=== PATIENT | female | born 1990 | race Caucasian/White ===

== ENCOUNTER 2017-11-02 18:50 | Outpatient (CLI) | payer OTHER, MEDICAID, SELFPAY ==
[2017-11-02 19:49] VITALS: BMI 40.1
[2017-11-02 20:07] LABS: Mucous, Urine 0 SEEN /hpf (<or=2+); Red Blood Cells-Urine 0 SEEN /hpf (0-5); Squamous Epithelial Cells - UA 0 SEEN /hpf (5-10)
[2017-11-02 20:09] LABS: Color, Urine Yellow (Yellow); Glucose, Dipstick Normal (Normal); Ketone-Dipstick 15 mg/dl (Negative); Leukocyte Esterase-Dipstick 100 /ul (Negative); Nitrite-Dipstick Negative (Negative); Occult Blood-Urine Negative /ul (Negative); Protein-Dipstick 15 mg/dl (Negative); Urine Bilirubin Dipstick Negative (Negative); Urine Clarity Clear (Clear); Urine Urobilinogen Normal (Normal)
[2017-11-02 20:17] LABS: Bacteria RARE /hpf (None Seen); White Blood Cells 0-5 SEEN /hpf (0-5)
[2017-11-02 20:24] VITALS: BP 130/69; PULSE 90; RESP 16; TEMP 36.8; O2SAT 97
--- NOTE | 2017-11-03 08:28 | OB.TRI.NOTE ---
History of Present Illness Date of Service: 11/02/17 Was patient seen by the physician?: Yes Reason For Visit: REPEAT C SECTION BTO Date of Service: 11/02/17 Final SANDIE: 12/05/17 Final SANDIE Source: US <20 weeks Gestational age: 36 Weeks and 0 Days History of Present Illness: Presents at 35 2/7 wk EGA just not feeling good. Achy, crampy. Planned repeat C/S at 39 wk and BTO Home Medications Medication Instructions Recorded Albuterol Inhaler [Ventolin Hfa 2 puff INHALATION Q6H PRN PRN 07/31/17 (SP)] Vit #116/Iron/FA/Dha 1 each PO DAILY 07/31/17 [ Formula-Dha Softgel] Allergies Sulfa (Sulfonamide Antibiotics) Allergy (Severe, Verified 11/06/17 16:36) Anaphylaxis Pt. states she has been told of allergy as a child but does not remember Physical Exam General: Oriented x3, Cooperative, No apparent distress Abdomen: Gravid Cervix Dilation (cm): 2 - (no change on recheck) NST - FHR Rate Baby A Baseline: 120-130 with accels to 160s Variability:: Moderate Accelerations:: 15 x 15 Decelerations:: None NST Reactive:: Yes, Appropriate for gestational age FHR Category:: Category I Uterine Activity:: UC q 2-5 min. not felt by patient Impression/Plan 35 2/7 wk Malaise False labor Home to rest, tylenol PM . warm bath or shower prior to rest Inc po fluids Keep next ofc appt as scheduled
== END 2017-11-02 20:35 | disposition home or self-care (01) ==
LOC: WPOUT 19:17 → WP 19:18
PROVIDERS: Visit Provider Obstetrics & Gynecology
DX: O26.813 Pregnancy related exhaustion and fatigue, third trimester (principal); O47.03 False labor before 37 completed weeks of gestation, third trimester; Z3A.35 35 weeks gestation of pregnancy; O34.219 Maternal care for unspecified type scar from previous cesarean delivery
CPT/HCPCS: 59025; 59050; 81001; 99218; G0378

== ENCOUNTER 2017-11-06 16:15 | Outpatient (CLI) | payer OTHER, MEDICAID, SELFPAY ==
[2017-11-06 16:37] VITALS: BMI 41.2
--- NOTE | 2017-11-08 08:23 | OB.TRI.HP_ITS ---
History of Present Illness Reason For Visit: FALL Date of Service: 11/06/17 Final SANDIE: 12/05/17 Gestational age: 35 wk 6 Days History of Present Illness: 27 yo AB 1 female presents for monitoring approx 6 hr after falling on hands and knees at work. H/O prior C/S x two, both at term. Denies any VB , ROM, UCs but is sore. Scraped on knees and some bruising. Also L foot sore. No bruising there. Home Medications Medication Instructions Recorded Albuterol Inhaler [Ventolin Hfa 2 puff INHALATION Q6H PRN PRN 07/31/17 (SP)] Vit #116/Iron/FA/Dha 1 each PO DAILY 07/31/17 [ Formula-Dha Softgel] Allergies Sulfa (Sulfonamide Antibiotics) Allergy (Severe, Verified 11/06/17 16:36) Anaphylaxis Pt. states she has been told of allergy as a child but does not remember NST - FHR Rate Baby A Baseline: 130-140 with avg variability. Accels to 160-170 Variability:: Moderate Accelerations:: 15 x 15 Decelerations:: None NST Reactive:: Yes, Appropriate for gestational age FHR Category:: Category I Uterine Activity:: NO UCs noted. Impression/Plan 35 6/7 wk EGA prior C/S times two. S/P fall onto hands and knees at work. no abdominal trauma NST reactive No labor Knee abrasions, foot pain after fall. Comfort measures for knees and foot. Keep next appt in ofc as scheduled. Return to hospital if inc s/sx of labor.
== END 2017-11-06 17:55 | disposition home or self-care (01) ==
LOC: WPOUT 16:25 → WP 16:26
PROVIDERS: Visit Provider Obstetrics & Gynecology
DX: O34.219 Maternal care for unspecified type scar from previous cesarean delivery (principal); Z3A.35 35 weeks gestation of pregnancy; S80.212A Abrasion, left knee, initial encounter; S80.211A Abrasion, right knee, initial encounter; W18.30XA Fall on same level, unspecified, initial encounter; Y93.9 Activity, unspecified; Y92.89 Other specified places as the place of occurrence of the external cause; Y99.0 Civilian activity done for income or pay; M79.673 Pain in unspecified foot
CPT/HCPCS: 59025; 59050; 99218; G0378

== ENCOUNTER 2017-11-29 05:35 | Inpatient (IN) | payer OTHER, MEDICAID, SELFPAY ==
--- NOTE | 2017-11-03 08:28 | OB.TRI.NOTE ---
History of Present Illness Date of Service: 11/02/17 Was patient seen by the physician?: Yes Reason For Visit: REPEAT C SECTION BTO Date of Service: 11/02/17 Final SANDIE: 12/05/17 Final SANDIE Source: US <20 weeks Gestational age: 35 Weeks and 2 Days History of Present Illness: Presents at 35 2/7 wk EGA just not feeling good. Achy, crampy. Planned repeat C/S at 39 wk and BTO Home Medications Medication Instructions Recorded Albuterol Inhaler [Ventolin Hfa 2 puff INHALATION Q6H PRN PRN 07/31/17 (SP)] Vit #116/Iron/FA/Dha 1 each PO DAILY 07/31/17 [ Formula-Dha Softgel] Allergies Sulfa (Sulfonamide Antibiotics) Allergy (Severe, Verified 11/02/17 19:54) Anaphylaxis Pt. states she has been told of allergy as a child but does not remember Physical Exam General: Oriented x3, Cooperative, No apparent distress Abdomen: Gravid Cervix Dilation (cm): 2 - (no change on recheck) NST - FHR Rate Baby A Baseline: 120-130 with accels to 160s Variability:: Moderate Accelerations:: 15 x 15 Decelerations:: None NST Reactive:: Yes, Appropriate for gestational age FHR Category:: Category I Uterine Activity:: UC q 2-5 min. not felt by patient Impression/Plan 35 2/7 wk Malaise False labor Home to rest, tylenol PM . warm bath or shower prior to rest Inc po fluids Keep next ofc appt as scheduled
[2017-11-27 13:06] VITALS: BMI 41.7
[2017-11-27 13:55] LABS: Hematocrit 32.9 % (37-47); Hemoglobin 10.6 g/dl (12.0-15.0); Mean Corp Hgb Conc 32.2 g/gl (32-36); Mean Corpuscular Volume 83.9 fL (81-99); Mean Platelet Vol. 9.2 fl (6.2-12.0); Platelet Count 225 K/mm3 (150-450); RBC Distribution Width CV 13.7 % (11.6-14.6); Red Blood Count 3.92 M/mm3 (4.2-5.4); White Blood Count 9.7 K/mm3 (4.4-11.0)
[2017-11-27 13:56] LABS: Scan Indicated on CBC? Y/N NO
[2017-11-27 14:10] LABS: Prothrombin Time (Protime)PT. 12.9 SECONDS (11.7-14.9)
[2017-11-27 14:11] LABS: Partial Thromboplast Time 29.2 Seconds (24.1-36.2)
[2017-11-29] VITALS (15 sets, daily range): BP systolic 103–142; BP diastolic 55–79; PULSE 75–85; RESP 16–18; TEMP 36.3–37.6; O2SAT 97–100
--- NOTE | 2017-11-29 | FALS_PTH ---
PATIENT: TANYA FREDERICK LOC: [facility] U#:[id number] AGE/SX: 27/F ROOM: [id number] RE11/29/[address]: Dr. Morena Torres MD : 1990 BED: 2 DIS: 12/01/2017 SPEC #: [id number] RECD: 11/29/17 10:40 STATUS: FEI ALESSIO #: [id number] KEIRY: 11/29/17 00:[address]: Morena Torres DEPT: SURGICAL PATHOLOGY RECD BY: Rafita Gonzales ENTERED: 11/29/17 10:40 SP TYPE: FALL TUBES OTHR DR: No Primary Care Phys Tissues: Fallopian tube Procedures: Surgery Specimen Level II HEADER OPERATION: Tubal ligation PRE-OP DIAGNOSIS: Sterilization request TISSUE SUBMITTED: Fallopian tubes, suture in right tube MICROSCOPIC DIAGNOSIS Right and left fallopian tubes, bilateral partial salpingectomies: Two complete cross-sections of fallopian tubes with no pathologic change. AM:mell 11/30/17 MICROSCOPIC DESCRIPTION Slides are reviewed. GROSS DESCRIPTION Received in fixative is one container labeled with the patient's name and designated suture in right tube. The specimen consists of two tubular pieces of [place] soft tissue with the right tube identified with a suture. The right fallopian tube measures 1 cm in length and 0.5 cm in diameter. The left fallopian tube measures 1.5 cm in length and 0.7 cm in diameter. The right tube with suture is inked black. The entire specimen is submitted in one cassette. Both pieces will be serially sectioned at the time of embedding. / EDSON:mell 11/29/17 TC:4 CPT: 54153 x2
[2017-11-29] MEDS: Lactated Ringers 1,000 ML 999 ML IV (06:05)
[2017-11-29] MEDS: Lactated Ringers 1,000 ML 150 ML IV (07:00)
[2017-11-29] MEDS: Sodium Citrate/Citric Acid 30 ML UDC PO (07:00)
--- NOTE | 2017-11-29 07:08 | PCM.DCCSEC ---
Discharge Diet: No Restrictions Discharge Activity: May not drive while taking narcotic pain medications., May Shower, May Take a Tub Bath Return to work on:: 01/28/18 May resume sexual activity in: 4-6 weeks Lifting Restrictions: 20 pounds Additional Activity Instructions:: Nothing in the vagina for 4-6 weeks. You may return to work/school in 6 weeks. Change Dressing in (Days):: 14 Remove Dressing in (days):: 14 Cleanse incision/area with: Soap & Water, Keep Dressing Clean & Dry Additional Instructions: If you experience any of the following, contact your healthcare provider. Bleeding that soaks a pad every hour for 2 hours Fever 100.4 or higher Unrelieved incision or abdominal pain Swelling, redness, discharge or bleeding from your incision Problems urinating (including inability to urinate or burning while urinating). Visual changes Severe headache Flu-like symptoms Pain or redness in one of both of your breasts Pain, warmth, tenderness or swelling in your legs, especially the calf area Frequent nausea and vomiting Symptoms of depression or anxiety If you experience any of the following, call 911 or go to the nearest Emergency Room. Chest pain Problems breathing Seizure activity Partial or complete paralysis of a body part, slurred speech, weakness or drooping of the face, or a sudden inability to walk or hold your balance Allergies/Adverse Reactions: Allergies Sulfa (Sulfonamide Antibiotics) Allergy (Severe, Verified 11/29/17 06:36) Anaphylaxis Pt. states she has been told of allergy as a child but does not remember Medications to take at Discharge Vit #116/Iron/FA/Dha [ Formula-Dha Softgel] 1 each PO DAILY 07/31/17 Docusate Sodium [Colace] 200 mg PO BID PRN #30 cap 11/29/17 Naproxen [Naprosyn] 250 - 500 mg PO TID PRN #30 tab 11/29/17 Oxycodone [Oxyir] 5 - 10 mg PO Q6H PRN PRN 7 Days #28 tablet 11/29/17 The following prescriptions were given: Oxycodone [Oxyir] 5 - 10 mg PO Q6H PRN PRN 7 Days #28 tablet PRN Reason: Mod-Severe Pain (-06/19) Docusate Sodium [Colace] 200 mg PO BID PRN #30 cap PRN Reason: Constipation Naproxen [Naprosyn] 250 - 500 mg PO TID PRN #30 tab PRN Reason: Mild-Mod Pain (1-5/10) Orders to be completed after discharge: Electric breast pump Location: None Selected Follow-Up: Call to make an appointment with your doctor for an incision check in 1-2 weeks. You will also need a 6 week post- follow up appointment. Please Follow Up With: Morena Torres MD - [phone] When: Call to make an appointment for an incision check in 2 weeks. Primary Care Physician: Care Physician,No Primary [Primary Care Provider] - Proposed Discharge Date: 12/01/17
--- NOTE | 2017-11-29 07:13 | DCINST_ITS ---
Discharge Diet: No Restrictions Discharge Activity: May not drive while taking narcotic pain medications., May Shower, May Take a Tub Bath Return to work on:: 01/28/18 May resume sexual activity in: 4-6 weeks Lifting Restrictions: 20 pounds Additional Activity Instructions:: Nothing in the vagina for 4-6 weeks. You may return to work/school in 6 weeks. Change Dressing in (Days):: 14 Remove Dressing in (days):: 14 Cleanse incision/area with: Soap & Water, Keep Dressing Clean & Dry Additional Instructions: If you experience any of the following, contact your healthcare provider. * Bleeding that soaks a pad every hour for 2 hours * Fever 100.4 or higher * Unrelieved incision or abdominal pain * Swelling, redness, discharge or bleeding from your incision * Problems urinating (including inability to urinate or burning while urinating) . * Visual changes * Severe headache * Flu-like symptoms * Pain or redness in one of both of your breasts * Pain, warmth, tenderness or swelling in your legs, especially the calf area * Frequent nausea and vomiting * Symptoms of depression or anxiety If you experience any of the following, call 911 or go to the nearest Emergency Room. * Chest pain * Problems breathing * Seizure activity * Partial or complete paralysis of a body part, slurred speech, weakness or drooping of the face, or a sudden inability to walk or hold your balance Allergies/Adverse Reactions: Allergies Sulfa (Sulfonamide Antibiotics) Allergy (Severe, Verified 11/29/17 06:36) Anaphylaxis Pt. states she has been told of allergy as a child but does not remember Medications to take at Discharge Vit #116/Iron/FA/Dha [ Formula-Dha Softgel] 1 each PO DAILY Docusate Sodium [Colace] 200 mg PO BID PRN #30 cap 11/29/17 Naproxen [Naprosyn] 250 - 500 mg PO TID PRN #30 tab 11/29/17 Oxycodone [Oxyir] 5 - 10 mg PO Q6H PRN PRN 7 Days #28 tablet 11/29/17 The following prescriptions were given: Oxycodone [Oxyir] 5 - 10 mg PO Q6H PRN PRN 7 Days #28 tablet PRN Reason: Mod-Severe Pain () Docusate Sodium [Colace] 200 mg PO BID PRN #30 cap PRN Reason: Constipation Naproxen [Naprosyn] 250 - 500 mg PO TID PRN #30 tab PRN Reason: Mild-Mod Pain (-01/17) Orders to be completed after discharge: Electric breast pump Location: None Selected Follow-Up: Call to make an appointment with your doctor for an incision check in 1-2 weeks. You will also need a 6 week post- follow up appointment. Please Follow Up With: Morena Torres MD - [phone] When: Call to make an appointment for an incision check in 2 weeks. Primary Care Physician: Care Physician,No Primary [Primary Care Provider] - Proposed Discharge Date: 12/01/17
[2017-11-29] MEDS: Oxytocin 30 units/NS 500 ml 30 UNITS/500 ML IV.SOLN 167 UNITS IV (07:40)
[2017-11-29] MEDS: Lactated Ringers 1,000 ML 100 ML IV ×3 (08:35→23:47)
[2017-11-29] MEDS: HYDROmorphone 1 MG/ML Syringe IV ×3 (09:32→19:45)
[2017-11-29] MEDS: Ketorolac 30 MG/ML Syringe IV ×3 (12:12→22:56)
[2017-11-29] MEDS: Prenatal Vits Tablet 1 TABLET PO (17:37)
[2017-11-29] MEDS: Senna/Docusate Sodium 1 Tablet PO (21:48)
[2017-11-29] MEDS: oxyCODONE 5 MG Tablet PO (22:55)
[2017-11-30] VITALS: BP 118/67; PULSE 81; RESP 15; TEMP 37.2; O2SAT 96
[2017-11-30] MEDS: oxyCODONE 5 MG Tablet PO ×3 (03:50→15:13)
[2017-11-30 03:53] VITALS: BP 109/72; PULSE 75; RESP 15; TEMP 36.8; O2SAT 97
[2017-11-30 04:09] LABS: Hematocrit 29.3 % (37-47); Hemoglobin 9.4 g/dl (12.0-15.0); Mean Corp Hgb Conc 32.1 g/gl (32-36); Mean Corpuscular Hgb 27.5 pg (27.0-32.0); Mean Corpuscular Volume 85.7 fL (81-99); Mean Platelet Vol. 9.1 fl (6.2-12.0); Platelet Count 188 K/mm3 (150-450); RBC Distribution Width CV 13.5 % (11.6-14.6); RBC Distribution Width SD 41.4 fl (35.1-43.9); Red Blood Count 3.42 M/mm3 (4.2-5.4); Scan Indicated on CBC? Y/N NO; White Blood Count 12.6 K/mm3 (4.4-11.0)
[2017-11-30] MEDS: Ketorolac 30 MG/ML Syringe IV ×3 (06:25→18:08)
[2017-11-30 08:00] VITALS: BP 115/57; PULSE 74; RESP 16; TEMP 36.5
--- NOTE | 2017-11-30 08:04 | OP.PCM_ITS ---
Operative Report Date of Procedure: 11/29/17 - 39+ wk repeat C/S and BPS Date of Procedure: 11/29/17 PROCEDURE: Repeat C section Bilateral Partial Salpingectomy Preoperative diagnosis: 39+ wk EGA Prior C/S deliveries, Planned repeat C/S Sterilization request Postop diagnosis: 39+ wk EGA Prior C/S deliveries, Planned repeat C/S Sterilization request Anesthesia: Spinal, Dr. Beckford Surgeon: Morena Torres MD Consulting Services Associate: JAZMYN Ng EBL 800 cc Complications: none Drains: Stewart draining clear yellow appearing urine Fluids: replacement LR Findings: At amniotomy, clear fluid was noted. Ward viable female in vertex presentation . Apgars 9/9, Baby weight: 8 # 14 oz. There was a normal appearing uterus, fallopian tubes and ovaries bilaterally. Filmy adhesions at lower uterine segment between bladder and uterus. small hematoma inferior to incision, oversewn and stable. PATH: Routine cord gases were sent. Narrative account: After the risks, benefits and alternatives of the procedure were reviewed with the patient, informed consent was obtained. The patient was taken to the Operative room with an IV running, and positioned in a seated position on the operating table for placement of the spinal. After the spinal was administered , she was repositioned to the dorsal supine position then prepped and draped in the usual sterile fashion. Once the spinal was deemed adequate, a Pfannenstiel skin incision was created using the knife through the prior scar present . The incision was carried down to the rectus fascia using the knife and Bovie cautery. The fascia was nicked in the midline. The fascial incision was extended bilaterally using curved Collazo scissors. The superior aspect of the fascial incision was grasped with Juan clamps and tented up and the underlying rectus abdominal muscles were dissected free. In a similar manner, the inferior aspect of the facial incision was grasped with Juan clamps tented up and the underlying rectus abdominal muscles were dissected free. The rectus abdominis muscles were tented up in the midline with Michelle clamps and the peritoneum was identified and entered high in the incision by sharp dissection. The rectus abdominis muscles were divided along the midline as the peritoneal incision was extended superiorly and then inferiorly, using Metzenbaum scissors. The peritoneum was stretched laterally and a bladder blade was inserted. A bladder flap was created along the lower uterine segment with Metzenbaum scissors . The uterine incision was then created using Metzenbaum scissors. The operators fingertips were used to extend the uterine incision by blunt dissection in a caudad- cephalad orientation . Clear fluid was noted at amniotomy. The vertex was then delivered atraumatically through the incision. The OP and nares were bulb suctioned on the abdomen. Nuchal cord x one reduced at delivery . The shoulders delivered easily . The cord was clamped x two and cut. And the was handed off to the nurse awaiting delivery after briefly showing her to her parents. The baby had a spontaneous, vigorous cry. The placenta was then delivered by manual extraction. The uterus was exteriorized and cleared of clots and debris . The uterine incision was repaired with 1 Vicryl in a running locked fashion. A second imbricating layer was then placed, using 1 Monocryl in running nonlocked fashion. There was a small hematoma inferior to the incision: this was oversewn with interrupted horizontal mattress stitches and figure of eight stitches of 1 Vicryl. Excellent hemostasis was noted and no further extension of the hematoma was noted. At this point the uterus was returned to the abdominal cavity. The gutters were cleared of clots and debris and the incision at the uterus was inspected. Excellent hemostasis was noted. The peritoneal edges and rectus abdominis muscles were reapproximated in the midline with vertical mattress stitches and figure of eight stitches of 1 Vicryl . Excellent hemostasis was noted at the subfascial space. The fascia was closed in a running nonlocked fashion with a Strattofix. The Subcutaneous fatty tissue was Bovie cauterized as needed for hemostasis. This layer was then reapproximated with a single layer of running 3-0 Vicryl to eliminate space. The skin edges were closed in a Subcuticular stitch of 3-4 strattofix suture. The incision was cleansed. The incision was dressed with : Cavilon, Steristrips, and a Mepilex dressing . The patient was then transferred to the recovery room bed in stable condition after tolerating the procedure well. Sponge, lap, needle and instrument counts correct times two. Medications given preop and intraoperatively included: Ancef 2 gm given vegetable scullion to the operating room. The patient also received Pitocin given IV after cord clamp, and Toradol 30 mg IV times one. For a complete listing of medications given preop and intraoperatively, please see the anesthesia record. THIS PATIENT DID NOT RECEIVE DURAMORPH.
--- NOTE | 2017-11-30 08:04 | PCM.PN.OB ---
Subjective: POD#1 repeat C/S and bilateral partial salpingectomy Doing well. Some soreness (no duramorph given) and has been taking OxyIR for this , in addition to IV toradol given. Nursing. Doing well overall with this. Planning to go home tomorrow if possible. States was up to chair. Stewart out but no void yet. - Physical Exam General: Alert, Oriented x3, Cooperative, No apparent distress HEENT: Atraumatic Neck: Supple Abdomen: Soft - Uterus firm inferior to umbilicus x 2-3 cm, and tender consistent with postop status. Wearing abdominal binder. Skin: Incision - Mepilex dressing CDI. Neurological: Cranial nerves II-XII grossly intact Psych/Mental Status: Normal Affect Vital Signs Temp Pulse Resp BP Pulse Ox 98.3 F 75 15 109/72 97 11/30/17 03:53 11/30/17 03:53 11/30/17 03:53 11/30/17 03:53 11/30/17 03:53 Oxygen Delivery Method Room Air Weight: 117.2 kg Body Mass Index (BMI) 41.7 Intake and Output for Last 24 Hours 03//18 03//18 /18 23:59 23:59 23:59 Intake Total 3536 / 3536 800 / 800 Output Total 2350 / 2350 2200 / 2200 Balance 1186 / 1186 -1400 / -1400 Laboratory Tests Past 24 Hrs 11/30/17 04:00 WBC 12.6 H RBC 3.42 L Hgb 9.4 L Hct 29.3 L MCV 85.7 MCH 27.5 MCHC 32.1 RDW 13.5 RDW Differential 41.4 Plt Count 188 MPV 9.1 Medical Necessity - Tobacco Use Smoking Status: Former smoker Assessment/Plan POD#1 repeat C/S and bilateral partial salpingectomy Stable postop . Voiding trial in progress. Inc diet and activity as tolerated. Continue IV toradol today for up to 48 hr postop. Iron deficiency anemia and now with superimposed acute blood loss anemia. -- Ferrous sulfate 325 mg po bid for 1 mo postop.
[2017-11-30] MEDS: Acetaminophen 500 MG Tablet 1000 MG PO ×2 (08:45→21:47)
[2017-11-30] MEDS: Ferrous Sulfate 325 MG Tablet PO ×2 (08:46→18:07)
[2017-11-30] MEDS: Prenatal Vits Tablet 1 TABLET PO (08:46)
[2017-11-30] MEDS: Senna/Docusate Sodium 1 Tablet PO (08:46)
[2017-11-30 12:27] LABS: Pathology Specimen OB SEE PATHOLOGY REPORT
[2017-11-30] MEDS: 0.9% Saline Lock 10 ML Syringe IV ×2 (12:33→18:08)
[2017-11-30 14:00] VITALS: BP 114/64; PULSE 68; RESP 20; TEMP 36.3
[2017-11-30 19:50] VITALS: BP 116/65; PULSE 86; RESP 18; TEMP 37.6
[2017-12-01] MEDS: Ketorolac 30 MG/ML Syringe IV ×2 (00:23→06:25)
[2017-12-01] MEDS: 0.9% Saline Lock 10 ML Syringe IV ×2 (00:23→06:25)
[2017-12-01 03:00] VITALS: BP 106/64; PULSE 67; RESP 16; TEMP 35.7
[2017-12-01 09:20] VITALS: BP 116/65; PULSE 83; RESP 18; TEMP 36.6; O2SAT 99
[2017-12-01] MEDS: Senna/Docusate Sodium 1 Tablet PO (09:23)
[2017-12-01] MEDS: Prenatal Vits Tablet 1 TABLET PO (09:23)
[2017-12-01] MEDS: Ferrous Sulfate 325 MG Tablet PO (09:24)
[2017-12-01] MEDS: Acetaminophen 500 MG Tablet 1000 MG PO (09:42)
--- NOTE | 2017-12-01 09:47 | PCM.PN.OB ---
Subjective: POD#2 Repeat C/S and BPS Doing well. Bottle feeding. Pain control adequate. Would like to go home today as boys unable to visit (flu precautions in place at hospital). Prefers to leave Mepilex on today. Will remove at home in 1-2 more days. No concerns voiced - Physical Exam General: Alert, Oriented x3, Cooperative, No apparent distress HEENT: Atraumatic Neck: Supple Abdomen: Soft - Fundus firm minimally tender c/w postop status, at 2 cm inferior to umbilicus Skin: Incision - Mepilex drsg dry and intact. Neurological: Cranial nerves II-XII grossly intact Psych/Mental Status: Normal Affect Vital Signs Temp Pulse Resp BP Pulse Ox 97.8 F 83 18 116/65 99 12/01/17 09:20 12/01/17 09:20 12/01/17 09:20 12/01/17 09:20 12/01/17 09:20 Oxygen Delivery Method Room Air Weight: 117.2 kg Body Mass Index (BMI) 41.7 Intake and Output for Last 24 Hours 03/ 03//18 18 23:59 23:59 23:59 Intake Total 3536 / 3536 800 / 800 Output Total 2350 / 2350 2200 / 2200 Balance 1186 / 1186 -1400 / -1400 Medical Necessity - Tobacco Use Smoking Status: Former smoker Assessment/Plan POD#2 repeat C/S and bilateral partial salpingectomy Stable postop . Would like to go home today. states missed her boys D/C home. RTO in 2 wk for postop check as scheduled, prn sooner. Iron deficiency anemia and now with superimposed acute blood loss anemia. -- Ferrous sulfate 325 mg po bid for 1 mo postop.
--- NOTE | 2017-12-01 09:51 | PCM.DC.SUM ---
Discharge Date and Diagnosis Date of Admission: 11/29/17 - 39 + wk repeat C/S and BPS Date of Discharge: 12/01/17 - same Hospital Course and Treatment Operations: - - Repeat C/S and bilateral partial salpingectomy Summary of Care Provided: The patient is a 27 year old female at 39+ wk EGA with h/o prior C/S deliveries, presents for repeat C/S and bilateral partial salpingectomy. Admitted on 11/29/17 for procedure. Procedure completed without complications. Ward viable 8# 14 oz female. Normal pelvic anatomy. Postoperative course uneventful. requests dischg to home on POD#2 RTO in 2 wk for postop check as planned. Discharge Diet: No Restrictions Discharge Activity: May not drive while taking narcotic pain medications., May Shower, May Take a Tub Bath Return to work on:: 01/28/18 May resume sexual activity in: 4-6 weeks Additional Activity Instructions:: Nothing in the vagina for 4-6 weeks. You may return to work/school in 6 weeks. Change Dressing in (Days):: 14 Remove Dressing in (days):: 14 Cleanse incision/area with: Soap & Water, Keep Dressing Clean & Dry Home Medications: Medications to take at Discharge Vit #116/Iron/FA/Dha [ Formula-Dha Softgel] 1 each PO DAILY 07/31/17 Docusate Sodium [Colace] 200 mg PO BID PRN #30 cap 11/29/17 Naproxen [Naprosyn] 250 - 500 mg PO TID PRN #30 tab 11/29/17 Oxycodone [Oxyir] 5 - 10 mg PO Q6H PRN PRN 7 Days #28 tablet 11/29/17 Ferrous Sulfate 325 mg PO BIDCM #60 tablet 11/30/17 Following Prescrptions Were Given to Patient: Oxycodone [Oxyir] 5 - 10 mg PO Q6H PRN PRN 7 Days #28 tablet PRN Reason: Mod-Severe Pain (4-10/10) Docusate Sodium [Colace] 200 mg PO BID PRN #30 cap PRN Reason: Constipation Ferrous Sulfate 325 mg PO BIDCM #60 tablet Naproxen [Naprosyn] 250 - 500 mg PO TID PRN #30 tab PRN Reason: Mild-Mod Pain (1-5/10) Other Amb Orders: Electric breast pump Location: None Selected Primary Care Physician: Care Physician,No Primary [Primary Care Provider] - Please Follow Up With: Morena Torres MD - [phone] When: Call to make an appointment for an incision check in 2 weeks. Medical Necessity - Tobacco Use Smoking Status: Former smoker Meaningful Use Info Meaningful Use Diagnoses (Choose all that apply): None applicable
--- NOTE | 2017-12-01 09:54 | DS.PCM_ITS ---
Discharge Date and Diagnosis Date of Admission: 11/29/17 - 39 + wk repeat C/S and BPS Date of Discharge: 12/01/17 - same Hospital Course and Treatment Operations: - - Repeat C/S and bilateral partial salpingectomy Summary of Care Provided: The patient is a 27 year old female at 39+ wk EGA with h/o prior C/S deliveries , presents for repeat C/S and bilateral partial salpingectomy. Admitted on for procedure. Procedure completed without complications. Ward viable 8# 14 oz female. Normal pelvic anatomy. Postoperative course uneventful. requests dischg to home on POD#2 RTO in 2 wk for postop check as planned. Discharge Diet: No Restrictions Discharge Activity: May not drive while taking narcotic pain medications., May Shower, May Take a Tub Bath Return to work on:: 01/28/18 May resume sexual activity in: 4-6 weeks Additional Activity Instructions:: Nothing in the vagina for 4-6 weeks. You may return to work/school in 6 weeks. Change Dressing in (Days):: 14 Remove Dressing in (days):: 14 Cleanse incision/area with: Soap & Water, Keep Dressing Clean & Dry Home Medications: Medications to take at Discharge Vit #116/Iron/FA/Dha [ Formula-Dha Softgel] 1 each PO DAILY Docusate Sodium [Colace] 200 mg PO BID PRN #30 cap 11/29/17 Naproxen [Naprosyn] 250 - 500 mg PO TID PRN #30 tab 11/29/17 Oxycodone [Oxyir] 5 - 10 mg PO Q6H PRN PRN 7 Days #28 tablet 11/29/17 Ferrous Sulfate 325 mg PO BIDCM #60 tablet 11/30/17 Following Prescrptions Were Given to Patient: Oxycodone [Oxyir] 5 - 10 mg PO Q6H PRN PRN 7 Days #28 tablet PRN Reason: Mod-Severe Pain (4-10/10) Docusate Sodium [Colace] 200 mg PO BID PRN #30 cap PRN Reason: Constipation Ferrous Sulfate 325 mg PO BIDCM #60 tablet Naproxen [Naprosyn] 250 - 500 mg PO TID PRN #30 tab PRN Reason: Mild-Mod Pain (1-5/10) Other Amb Orders: Electric breast pump Location: None Selected Primary Care Physician: Care Physician,No Primary [Primary Care Provider] - Please Follow Up With: Morena Torres MD - [phone] When: Call to make an appointment for an incision check in 2 weeks. Medical Necessity - Tobacco Use Smoking Status: Former smoker Meaningful Use Info Meaningful Use Diagnoses (Choose all that apply): None applicable
[2017-12-01 13:55] VITALS: BP 134/83; PULSE 77; RESP 16; TEMP 37.1; O2SAT 99
== END 2017-12-01 14:15 | disposition home or self-care (01) | DRG 765 ==
PROVIDERS: Admitting Provider Obstetrics & Gynecology; Visit Provider Obstetrics & Gynecology
DX: O34.211 Maternal care for low transverse scar from previous cesarean delivery (principal); D62 Acute posthemorrhagic anemia; Z37.0 Single live birth; D50.9 Iron deficiency anemia, unspecified; O99.02 Anemia complicating childbirth; Z30.2 Encounter for sterilization; Z3A.39 39 weeks gestation of pregnancy; Z87.891 Personal history of nicotine dependence
CPT/HCPCS: 85027; 85610; 85730; 86850; 86900; 88302; 99218; J7120; A4216; G0378

== ENCOUNTER → 2020-05-11 17:03 | Outpatient (CLI) | payer MEDICAID, SELFPAY ==
[2020-05-11 14:24] VITALS: BMI 37.8
[2020-05-13 20:07] LABS: Chlamydia By Nucleic Acid AMP Negative (Negative)
[2020-05-13 20:47] LABS: Gonococcus By Nucleic Acid AMP Negative (Negative)
== END ==
PROVIDERS: PCP Nurse Practitioner Family; Referring Provider Nurse Practitioner Women's Health; Visit Provider Nurse Practitioner Women's Health
DX: Z11.3 Encounter for screening for infections with a predominantly sexual mode of transmission (principal)
CPT/HCPCS: 87491; 87591

== ENCOUNTER → 2020-05-12 13:51 | Outpatient (CLI) | payer MEDICAID, SELFPAY ==
[2020-05-11 14:24] VITALS: BMI 37.8
--- NOTE | 2020-05-12 13:54 | US_ITS ---
STUDY: ULTRASOUND OF THE FEMALE PELVIS - COMPLETE REASON FOR EXAM: Female, 30 years old. Heavy and painful menses. LMP: 04/26/2020. TECHNIQUE: Transabdominal and Transvaginal TECHNICAL QUALITY: Adequate. COMPARISON: CT of the abdomen and pelvis, 08/04/2011. FINDINGS: The uterus is anteverted and is in a midline position. The uterus measures 7.7 x 5.8 x 4.1 cm. Normal uterine cervix. The endometrium measures 8 mm in thickness, and is hyperechoic. There is no demonstrated endometrial mass. There is no demonstrated myometrial mass. I.U.D. - The patient does not have an I.U.D. The right ovary is visualized. The right ovary measures 2.5 x 2.5 x 2.1 cm. There are multiple follicles of the right ovary without a dominant cyst. There is no visualized right adnexal mass or complex lesion. There is normal arterial and normal venous vascularity. The left ovary is visualized. The left ovary measures 3.6 x 2.3 x 2.4 cm. There are multiple follicles of the left ovary with a dominant 1.9 x 1.7 x 1.5 cm follicle. There is no visualized left adnexal mass or complex lesion. There is normal arterial and normal venous vascularity. There is no fluid in the cul-de-sac. The pre void volume of the bladder was 305 ml. The urinary bladder is grossly normal. US/Transvaginal Non- IMPRESSION: 1. Normal appearing uterus. 2. Dominant follicle in left ovary. 3. Multiple follicles peripherally in the right ovary. The alignment would suggest PCOS, although there is no accompanying ovarian enlargement. Electronically Signed: Salomon Witt DO at 16:51 EDT Tel [phone], Service support ,
--- NOTE | 2020-05-12 13:54 | US_ITS ---
STUDY: ULTRASOUND OF THE FEMALE PELVIS - COMPLETE REASON FOR EXAM: Female, 30 years old. Heavy and painful menses. LMP: 04/26/2020. TECHNIQUE: Transabdominal and Transvaginal TECHNICAL QUALITY: Adequate. COMPARISON: CT of the abdomen and pelvis, 08/04/2011. FINDINGS: The uterus is anteverted and is in a midline position. The uterus measures 7.7 x 5.8 x 4.1 cm. Normal uterine cervix. The endometrium measures 8 mm in thickness, and is hyperechoic. There is no demonstrated endometrial mass. There is no demonstrated myometrial mass. I.U.D. - The patient does not have an I.U.D. The right ovary is visualized. The right ovary measures 2.5 x 2.5 x 2.1 cm. There are multiple follicles of the right ovary without a dominant cyst. There is no visualized right adnexal mass or complex lesion. There is normal arterial and normal venous vascularity. The left ovary is visualized. The left ovary measures 3.6 x 2.3 x 2.4 cm. There are multiple follicles of the left ovary with a dominant 1.9 x 1.7 x 1.5 cm follicle. There is no visualized left adnexal mass or complex lesion. There is normal arterial and normal venous vascularity. There is no fluid in the cul-de-sac. The pre void volume of the bladder was 305 ml. The urinary bladder is grossly normal. US/Pelvic (Non ) IMPRESSION: 1. Normal appearing uterus. 2. Dominant follicle in left ovary. 3. Multiple follicles peripherally in the right ovary. The alignment would suggest PCOS, although there is no accompanying ovarian enlargement. Electronically Signed: Salomon Witt DO at 16:51 EDT Tel [phone], Service support ,
== END ==
PROVIDERS: PCP Nurse Practitioner Family; Referring Provider Nurse Practitioner Women's Health; Visit Provider Nurse Practitioner Women's Health
DX: N92.0 Excessive and frequent menstruation with regular cycle (principal); N94.6 Dysmenorrhea, unspecified
CPT/HCPCS: 76830; 76856

== ENCOUNTER → 2020-05-14 09:10 | Outpatient (CLI) | payer MEDICAID, SELFPAY ==
[2020-05-11 14:24] VITALS: BMI 37.8
[2020-05-14 09:47] LABS: Absolute Lymphocyte Count 2.25 X10^3/uL (0.83-4.51); Basophil# 0.05 X10^3/uL; Basophil% 0.6 % (0-1); Eosinophil# 0.31 X10^3/uL; Eosinophils% 3.8 % (0-5); Hematocrit 43.7 % (37-47); Hemoglobin 14.4 g/dL (12.0-15.0); Lymphocyte # 2.25 X10^3/ul (4.0); Lymphocyte % 27.4 % (19-41); Mean Corpuscular Hgb 29.6 pg (27.0-32.0); Mean Corpuscular Volume 89.9 fL (81-99); Mean Platelet Vol. 10.3 fl (6.2-12.0); Monocyte# 0.63 X10^3/uL; Monocyte% 7.7 % (0-10); NRBC Flagged by Analyzer 0 % (0-5); Neutrophil # 4.95 X10^3/uL (2.7-7.7); Neutrophil % 60.1 % (47-70); Platelet Count 250 K/mm3 (150-450); RBC Distribution Width CV 12.7 % (11.6-14.6); RBC Distribution Width SD 41.9 fl (35.1-43.9); Red Blood Count 4.86 M/mm3 (4.2-5.4); White Blood Count 8.2 K/mm3 (4.4-11.0)
[2020-05-14 10:23] LABS: Hemoglobin A1c 5.6 % (3.8-5.6)
[2020-05-14 10:27] LABS: ALB/GLOB Ratio 1.1 RATIO (0.9-2.4); AST(SGOT) 9 U/L (15-37); Alanine Aminotransfer ALT/SGPT 13 U/L (13-56); Alkaline Phosphatase 62 U/L (45-117); Anion Gap 9 (5-15); BUN 18 mg/dL (7-18); BUN/Creat Ratio 20.3 RATIO (10-20); Calcium,Total 9.1 mg/dL (8.5-10.1); Chloride 106 mmol/L (98-107); Cholesterol 213 mg/dL (200); Creatinine, Serum 0.88 mg/dL (0.55-1.02); EST Glomerular Filtration Rate 81 mL/min (>60); Est Glom Filt Rate - Afr Amer 98 mL/min (>60); Globulin 3.8 g/dL (2.2-4.2); Glucose 90 mg/dL (74-106); High Density Lipoprotein 41 mg/dL; Potassium 3.6 mmol/L (3.5-5.1); Prolactin 9.1 ng/mL; Protein, Total 7.8 g/dL (6.4-8.2); Sodium Level 141 mmol/L (136-145); Thyroid Stim Hormone (TSH) 1.79 uIU/mL (0.358-3.74); Triglycerides 105 mg/dL; Very Low Density Lipoprotein 21 mg/dL (5-40)
[2020-05-17 07:53] LABS: Testosterone Free 6.3 pg/mL (0.0-4.2)
[2020-05-19 13:08] LABS: 17-Hydroxyprogesterone 140 ng/dL (.)
== END ==
PROVIDERS: Nurse Practitioner Women's Health; PCP Nurse Practitioner Family; Referring Provider Obstetrics & Gynecology; Visit Provider Obstetrics & Gynecology
DX: Z13.29 Encounter for screening for other suspected endocrine disorder (principal); E28.2 Polycystic ovarian syndrome
CPT/HCPCS: 36415; 80053; 80061; 82627; 83036; 83498; 84146; 84402; 84443; 85025; 82626

== ENCOUNTER 2021-09-04 16:36 | Emergency (ER) | payer MEDICAID, SELFPAY ==
[2021-09-04 16:37] VITALS: BP 138/72; PULSE 80; RESP 15; TEMP 36.9; O2SAT 100; BMI 29.0
--- NOTE | 2021-09-04 16:56 | US_ITS ---
We are attempting to reach an attending provider to discuss findings. An addendum with communication details will be sent when the communication is complete. STUDY: FIRST TRIMESTER OBSTETRICAL ULTRASOUND REASON FOR EXAM: Female, 31 years old vaginal bleeding with LMP: TECHNIQUE: Transvaginal TECHNICAL QUALITY: Adequate. PRIOR ULTRASOUND: None. FINDINGS: Intrauterine gestation not visualized. The uterus measures 9.1 x 6.2 x 5.1 cm. There is no demonstrated uterine fibroid. The cervix is closed. The right ovary measures 3.9 x 3 x 2.5 cm. There is a complex cyst measuring 1.9 x 2.2 x 1.5 cm. There is no visualized right adnexal mass or complex lesion. The left ovary measures 3.1 x 2.1 x 1.6 cm. There is no left ovarian cyst. There is no visualized left adnexal mass or complex lesion. There is minimal fluid in the cul de sac. US/Transvaginal w/Preg US IMPRESSION: No evidence for intrauterine gestation. Complex cyst in the right ovary measuring 1.9 x 2.2 x 1.5 cm with minimal fluid in the cul-de-sac. Cannot definitively exclude ectopic . Recommend clinical correlation and follow-up studies Electronically Signed: Efra Washington MD at 18:56 EST , Service support ,
--- NOTE | 2021-09-04 16:57 | ED.VIS.FEGU ---
HPI HPI - Female History of Present Illness Chief Complaint: Vag Bld, Preg Narrative Narrative: Patient is a G5, P3 female at approximately 5 weeks gestation. Of note, she has past medical history of PCOS. Additionally in June of this year she had a fallopian tube ligation reversal. Her last menstrual period was in July, then she became . She states that she is considered high risk with her and had beta hCGs drawn last week that were in the 200s which subsequently doubled to the 400s. She is supposed to have an additional blood draw, but because of the holiday, it is not scheduled until next week. She presents because the day before yesterday she had pelvic cramping. The cramps have resolved. She was spotting over the last 2 days. She called her DOPE EDGER who said that she was not really concerned unless she passes clots. Today, the patient passed two quarter sized clots and had a little more bleeding than spotting of old blood. She presents because of the passing of clots and for evaluation. She denies any fevers or chills. She does not take blood thinners. No other bleeding diathesis. PFSH PFS Medical History Anxiety Asthma Home Medications multivitamin 1 cap PO DAILY 05/11/20 [History Last Taken Unknown] sertraline 50 mg tablet 50 mg PO .q hs tab 05/11/20 [History Last Taken Unknown] Allergy/AdvReac Type Severity Reaction Status Date / Time Sulfa (Sulfonamide Allergy Severe Anaphylaxis Verified 03/18/21 11:39 Antibiotics) Family History Mother Rheumatoid arthritis Unknown Asthma Diabetes Heart disease Surgical History History of delivery History of tonsillectomy and adenoidectomy History of tubal ligation Social History household members: significant other and children number of children: 3 current occupational status: employed current occupation: [employer], [employer] history of recent travel: No sexually active: Yes Smoking Status: Never smoker alcohol intake: current alcohol intake frequency: holidays/special occasions only substance use type: does not use diet: low carbohydrate what type of physical activity do you participate in: running seatbelt use: always do you feel safe at home: Yes additional social history: ROS ROS ED ROS Narrative Constitutional: No fever, no chills. HEENT: No sore throat. No neck pain. No loss of vision. No rhinorrhea. Cardiovascular: No chest pain. No palpitations. No pedal edema. Respiratory: No cough, no shortness of breath. Abdominal: No abdominal pain. No nausea. No vomiting. Genitourinary: No dysuria. No hematuria. Vaginal and pelvic cramping-resolved. Passing of old blood and clots vaginally. Musculoskeletal: No myalgias. No arthralgias. Neurologic: No headaches. No dizziness. No lightheadedness. Skin: No rash. No change in color. Psychiatric: No depression. No anxiety. EXAM Physical Exam Narrative Exam Narrative: Afebrile. Vital signs noted. HEENT: Normocephalic. Atraumatic. PERRL, EOMI. Neck soft and supple. No point tenderness or step off. Cardiovascular: Regular rate and rhythm. No murmurs, rubs, or gallops appreciated. Respiratory: No tachypnea. Lungs clear to auscultation bilaterally. Gastrointestinal: Abdomen soft, nontender, with normoactive bowel sounds. No rebound or guarding. Neurological: Awake. Alert. Nonfocal, nonlateralizing. Skin: No rash. Normal color. No pallor. Musculoskeletal: No pedal edema. Full range of motion extremities. Const Vital Signs: 09/04/21 16:37 Temperature 98.5 F Temperature Source Temporal Pulse Rate 80 Respiratory Rate 15 Blood Pressure 138/72 H Blood Pressure Mean 94 Pulse Ox 100 Oxygen Delivery Method Room Air MDM MDM MDM Narrative Medical decision making narrative: I will obtain an ultrasound along with quantitative beta-hCG, ABO Rh, and CBC. Chaperoned pelvic examination will be performed. Her CBC shows hemoglobin normal at 12.0, normal white count. Blood type is O+. hCG quantitative measurement is 1793. Her ultrasound shows no evidence of an intrauterine gestation, however her quantitative beta hCG is lower than 2000. Her microsystems engineer pelvic examination showed a small amount of blood coming from the os in the vaginal vault but no active hemorrhaging, no pooling of blood rapidly. At this point in time, I discussed patient with the on-call black top machine operator. Patient is supposed to have her beta hCG drawn tomorrow, but they told her to wait till Sunday. She will call the office to arrange close follow-up early this week. I feel she can be discharged safely home with follow-up. Return instructions to the emergency department were reviewed. Disposition is discharged home in stable condition. Lab Data Attestation: I reviewed the patient's lab results. Labs: Laboratory Results - last 24 hr 09/04/21 09/04/21 09/04/21 17:05 17:05 17:05 WBC 7.5 RBC 4.06 L Hgb 12.0 Hct 36.0 L MCV 88.7 MCH 29.6 MCHC 33.3 RDW Std Deviation 39.8 RDW Coeff of Lauren 12.2 Plt Count 246 MPV 9.4 Immature Gran % (Auto) 0.400 Neut % (Auto) 68.7 Lymph % (Auto) 22.0 [place] % (Auto) 7.7 Eos % (Auto) 0.5 Baso % (Auto) 0.7 Absolute Neuts (auto) 5.2 Absolute Lymphs (auto) 1.66 Nucleated RBC % 0 HCG, Quant 1793 H Blood Type TNP 09/04/21 17:05 WBC RBC Hgb Hct MCV MCH MCHC RDW Std Deviation RDW Coeff of Lauren Plt Count MPV Immature Gran % (Auto) Neut % (Auto) Lymph % (Auto) [place] % (Auto) Eos % (Auto) Baso % (Auto) Absolute Neuts (auto) Absolute Lymphs (auto) Nucleated RBC % HCG, Quant Blood Type O POSITIVE Radiography Diagnostic Testing: Clinical Impression(s) from Imaging Studies Obstetrics Ultrasound 09/04/21 16:56 IMPRESSION: No evidence for intrauterine gestation. Complex cyst in the right ovary measuring 1.9 x 2.2 x 1.5 cm with minimal fluid in the cul-de-sac. Cannot definitively exclude ectopic . Recommend clinical correlation and follow-up studies Electronically Signed: Efra Washington MD at 18:56 EST , Service support , ADDENDUM: 09/04/211911 IMPRESSION: No evidence for intrauterine gestation. Complex cyst in the right ovary measuring 1.9 x 2.2 x 1.5 cm with minimal fluid in the cul-de-sac. Cannot definitively exclude ectopic . Recommend clinical correlation and follow-up studies N.B. : The above Results were Read Back by Efra Washington MD to Chuck Poole MD, and understanding confirmed on 09/04/2021 19:05:06 (ET). Electronically Signed: Efra Washington MD at 18:56 EST , Service support , Discharge Plan Triage Chief Complaint: Vag Bld, Preg ED Provider: Chuck Recio Dx/Rx/DC Orders Clinical Impression: Threatened miscarriage, Vaginal bleeding during Instructions: Bleeding During Early , ED Possible Miscarriage ... Prescriptions: No Action sertraline 50 mg tablet 50 mg PO .q hs RF: 0 multivitamin capsule 1 cap PO DAILY RF: 0 Primary Care Provider: Sanjana Anguiano NP Referrals: Sanjana Anguiano NP, [employer] CUTTER[facility] [Primary Care Provider] - Activity Restrictions/Additional Instructions: Do not have your beta hCG drawn tomorrow, instead to have it drawn on 09/06/2021. Call the office of your DOPE EDGER/black top machine operator tomorrow morning to arrange follow-up later on this week. Disposition Disposition: Home, Self Care
[2021-09-04 17:17] LABS: Absolute Lymphocyte Count 1.66 X10^3/uL (0.83-4.51); Absolute Neutrophil Count 5.2 X10^3/uL (2.0-7.7); Basophil# 0.05 X10^3/uL; Basophil% 0.7 % (0-1); Eosinophil# 0.04 X10^3/uL; Eosinophils% 0.5 % (0-5); Lymphocyte # 1.66 X10^3/ul (0.83-4.51); Mean Corp Hgb Conc 33.3 g/dL (32-36); Mean Corpuscular Hgb 29.6 pg (27.0-32.0); Mean Corpuscular Volume 88.7 fL (81-99); Mean Platelet Vol. 9.4 fl (6.2-12.0); Monocyte# 0.58 X10^3/uL; Monocyte% 7.7 % (0-10); NRBC Flagged by Analyzer 0 % (0-5); Neutrophil # 5.18 X10^3/uL (2.7-7.7); Neutrophil % 68.7 % (47-70); Platelet Count 246 K/mm3 (150-450); RBC Distribution Width CV 12.2 % (11.6-14.6); RBC Distribution Width SD 39.8 fl (35.1-43.9); Red Blood Count 4.06 M/mm3 (4.2-5.4); White Blood Count 7.5 K/mm3 (4.4-11.0)
[2021-09-04 17:59] LABS: hCG Titer Quant., Serum 1793 mIU/mL (1-3)
[2021-09-04 20:47] VITALS: RESP 100; TEMP -4.4; TEMP 24
== END 2021-09-04 20:48 | disposition home or self-care (01) ==
PROVIDERS: Emergency Provider Emergency Medicine; PCP Nurse Practitioner Family
DX: O20.0 Threatened abortion (principal); O34.81 Maternal care for other abnormalities of pelvic organs, first trimester; N83.201 Unspecified ovarian cyst, right side; Z3A.01 Less than 8 weeks gestation of pregnancy; O99.281 Endocrine, nutritional and metabolic diseases complicating pregnancy, first trimester; O99.341 Other mental disorders complicating pregnancy, first trimester; F41.9 Anxiety disorder, unspecified; O99.511 Diseases of the respiratory system complicating pregnancy, first trimester; J45.909 Unspecified asthma, uncomplicated
CPT/HCPCS: 76817; 84702; 85025; 86900; 86901; 99283

== ENCOUNTER 2021-09-06 19:46 | Observation (INO) | payer MEDICAID, SELFPAY ==
[2021-09-06 19:47] VITALS: BP 121/78; PULSE 90; RESP 16; TEMP 36.6; O2SAT 98; BMI 29.0
--- NOTE | 2021-09-06 20:35 | US_ITS ---
We are attempting to reach an attending provider to discuss findings. An addendum with communication details will be sent when the communication is complete. STUDY: FIRST TRIMESTER OBSTETRICAL ULTRASOUND REASON FOR EXAM: Female, 31 years old bleeding. Sharp right-sided pain. Beta hCG pending. LMP: 07/28/2021 TECHNIQUE: Transvaginal TECHNICAL QUALITY: Adequate. PRIOR ULTRASOUND: May 12, 2020. FINDINGS: No intrauterine gestational sac. No yolk sac or embryo. The estimated gestation age (EGA) by LMP is 5 weeks, 5 days. The estimated date of delivery (SANDIE) by LMP is 05/04/2022. The uterus measures 9.8 x 7.0 x 4.9 cm . There is no demonstrated uterine fibroid. Endometrium measures 27 mm and is echogenic. The cervix is closed. The right ovary measures 3.4 x 2.8 x 2.4 cm. Hypoechoic nodule measuring 2.1 x 2.0 x 1.5 cm. Centrally located within the nodule is an ovoid fluid collection measuring 0.6 x 0.1 cm. Case into the right ovary is a hypoechoic heterogeneous mass measuring 7.0 x 5.1 x 4.3 cm, images 55 through 58/84. The left ovary measures 2.9 x 2.8 x 1.9 cm. Hypoechoic nodule measuring 2.4 x 1.9 x 1.5 cm There is no visualized left adnexal mass or complex lesion. There is a moderate amount of fluid in the cul de sac. US/Transvaginal w/Preg US IMPRESSION: No intrauterine gestation. Thickened endometrium. Right adnexal mass and moderate free fluid in the cul-de-sac. In view of the right sided pain, ectopic should be considered. Correlate with beta-hCG. Consider WORKFORCE INVESTMENT ACT CAREER MANAGER consult. Electronically Signed: Victor Manuel Thomas MD at 0:03 EST , Service support ,
--- NOTE | 2021-09-06 20:37 | EDS_ITS ---
HPI HPI - Female History of Present Illness Chief Complaint: Vag Bld, Preg Detail of Chief Complaint: Vaginal bleeding started about 6:30 PM Informant: patient Narrative Narrative: Patient presents to the emergency department complaint of vaginal bleeding that started about 6:30 PM. Patient states that she had sudden onset of severe right lower quadrant abdominal pain and then she felt like she needed to go to the bathroom and passed a small clot the size of a pea and noted some bleeding in the toilet. Patient denies dysuria. Patient had a similar episode 3 days ago and was seen in the ER and had a quant and a pelvic ultrasound which could not visualize a . Patient is approximately 5 weeks . Patient also tells me she had a quant this morning and it was 2299. Patient had recent reversal of tubal ligation on June 152020 at [facility]. Patient has just minimal pain currently and describes it as crampy. Patient states that she has had intermittent bleeding since she found out she was . 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, [employer] history of recent travel: No sexually active: Yes Smoking Status: Never smoker alcohol intake: current alcohol intake frequency: holidays/special occasions only substance use type: does not use diet: low carbohydrate what type of physical activity do you participate in: running seatbelt use: always do you feel safe at home: Yes additional social history: ROS ROS ED Constitutional Constitutional ED: Reports systems reviewed and no addt'l complaints, except as documented; Denies body ache(s), change in weight or chills Eyes Eyes: Denies acute decrease in peripheral vision, change in vision, double vision or loss of vision ENT ENT ED: Reports none; Denies ear pain, lip swelling, loss taste/smell, neck pain, otalgia or sore throat Cardiovascular Cardiovascular: Reports none; Denies abdominal pain, chest pain with activity, leg edema, lightheadedness, palpitations, rapid heart rate or syncope Respiratory/Chest Respiratory/Chest: Reports none; Denies change in mental status, dry cough, dyspnea, hemoptysis, shortness of breath at rest or shortness of breath with exertion Gastrointestinal Gastrointestinal: Reports none and abdominal pain; Denies change in stool character, diarrhea, hematemesis, hematochezia, melena, rectal bleeding or vomiting Genitourinary Genitourinary ED: Reports none and other Details: Vaginal bleeding ; Denies abdominal discomfort, anuria, dysuria, genital pain or polyuria Musculoskeletal Musculoskeletal: Reports none; Denies arthralgias, back pain, difficulty walking, extremity pain, muscle weakness or myalgias Integumentary Reports none; Denies abscess or rash Neurologic Neurologic: Reports none; Denies abnormal gait, confusion, focal weakness, frequent falls, headache(s), loss of vision, numbness, paresthesias, radicular pain, vertigo or weakness Psychiatric Psychiatric: Reports systems reviewed and no addt'l complaints, except as documented and none; Denies behavioral changes, confusion, difficulty concentrating, hallucinations, suicidal ideation, tactile hallucinations or visual hallucinations Endocrine Endocrinology: Denies none, cold intolerance, excessive sweating, fatigue or heat intolerance Hematologic/Lymphatic Hematologic/Lymphatic: Reports none; Denies anemia, easy bleeding or easy bruising Allergic/Immunologic Allergic/Immunologic ED: Denies as per HPI, none, lip swelling, mouth swelling, throat swelling, tongue swelling or hives EXAM Physical Exam Const Vital Signs: 09/06/21 19:47 09/06/21 21:57 Temperature 97.8 F Temperature Source Temporal Pulse Rate 90 Respiratory Rate 16 14 Blood Pressure 121/78 H Blood Pressure Mean 92 Pulse Ox 98 Oxygen Delivery Method Room Air Positive well nourished and well developed General Appearance ED: well developed and NAD HEENT Reports TM's clear and moist mucous membranes normocephalic and atraumatic; Negative for trauma or tenderness Tympanic Membrane ED: Yes TM's clear Eyes PERRL and EOMs intact bilaterally General Eye ED: Negative for pale conjunctiva or scleral icterus Neck no lymphadenopathy, supple and no JVD General: Negative for tenderness Chest Wall inspection of chest normal and palpation of chest normal Chest: Negative for tenderness Resp normal respiratory effort and clear to auscultation bilaterally Effort and Inspection: Negative for respiratory distress or pain with movement Auscultation: Negative for rhonchi, wheezes or diminished lung sounds Cardio regular rate, regular rhythm, S1 normal heart sound, S2 normal heart sound and no murmurs Peripheral Pulses: pulses 2+ throughout GI normal to inspection, nondistended, normoactive bowel sounds, soft to palpation, non-distended and no masses GI Narrative: Mild tenderness the right lower quadrant. There is no rebound, rigidity, or peritoneal signs. Back/Spine no CVA tenderness and no thoracic nor lumbar tenderness Extremity normal to inspection General Extremety ED: Negative for edema General Extremity: Negative for edema Neuro oriented x3, CN's II-XII intact bilaterally, no sensory deficits noted and gait normal Sensorium / Orientation: awake, alert, oriented to person, oriented to place and oriented to time Motor Exam: strength 5/5 throughout and strength abnormal Psych mental status grossly normal Skin no rashes or lesions noted and no wounds MDM MDM MDM Narrative Medical decision making narrative: IV line established on arrival. Patient had an ultrasound initially the tech thought that patient had a 7 cm mass in the right adnexa concerning for ectopic as there was no visualization of products within the uterus. Radiologist was in agreement. I discussed case with RECRUITING INTERNSHIP on-call Dr. Maryam Berg who will present to the emergency department to evaluate patient for operative intervention. Lab Data Attestation: I reviewed the patient's lab results. Labs: Laboratory Results - last 24 hr 09/06/21 09/06/21 09/06/21 20:50 21:01 21:13 WBC 8.1 RBC 4.08 L Hgb 12.0 Hct 36.2 L MCV 88.7 MCH 29.4 MCHC 33.1 RDW Std Deviation 40.0 RDW Coeff of Lauren 12.3 Plt Count 264 MPV 9.3 Immature Gran % (Auto) 0.500 Neut % (Auto) 67.0 Lymph % (Auto) 22.1 [place] % (Auto) 8.8 Eos % (Auto) 1.1 Baso % (Auto) 0.5 Absolute Neuts (auto) 5.4 Absolute Lymphs (auto) 1.79 Nucleated RBC % 0 HCG, Quant 1864 H Urine Color Straw Urine Clarity Clear Urine pH 5.0 Ur Specific [place] 1.010 Urine Protein Negative Urine Glucose (UA) Normal Urine Ketones Negative Urine Occult Blood 25 H Urine Nitrite Negative Urine Bilirubin Negative Urine Urobilinogen Normal Ur Leukocyte Esterase Negative Urine RBC 0 SEEN Urine WBC 0 SEEN Ur Squamous Epith Cells 0 SEEN Urine Bacteria 0 SEEN Urine Mucus 0 SEEN Radiography Diagnostic Testing: Clinical Impression(s) from Imaging Studies Obstetrics Ultrasound 09/06/21 20:35 IMPRESSION: No intrauterine gestation. Thickened endometrium. Right adnexal mass and moderate free fluid in the cul-de-sac. In view of the right sided pain, ectopic should be considered. Correlate with beta-hCG. Consider RE[employer]UITING [employer]NSH[employer] consult. Electronically Signed: Victor Manuel Thomas MD at 0:03 EST , Service support , ADDENDUM: 09/07/21 0013 IMPRESSION: No intrauterine gestation. Thickened endometrium. Right adnexal mass and moderate free fluid in the cul-de-sac. In view of the right sided pain, ectopic should be considered. Correlate with beta-hCG. Consider RE[employer] consult. N.B. : The above Results were Read Back by Victor Manuel Thomas MD to Garry Yates MD, and understanding confirmed on 09/07/2021 00:06:59 (ET). Electronically Signed: Victor Manuel Thomas MD at 0:03 EST , Service support , Discharge Plan Triage Chief Complaint: Vag Bld, Preg ED Provider: Garry Faustin Dx/Rx/DC Orders Clinical Impression: Ectopic , Pelvic pain Prescriptions: No Action 1 cap PO/SL DAILY RF: 0 Primary Care Provider: Sanjana Anguiano NP Referrals: Sanjana Anguiano NP, TRAVELING ELECTRICIAN-C [Primary Care Provider] - Disposition Disposition: Acute Care [facility]
[2021-09-06 20:56] LABS: Absolute Lymphocyte Count 1.79 X10^3/uL (0.83-4.51); Absolute Neutrophil Count 5.4 X10^3/uL (2.0-7.7); Basophil# 0.04 X10^3/uL; Basophil% 0.5 % (0-1); Eosinophil# 0.09 X10^3/uL; Eosinophils% 1.1 % (0-5); Hematocrit 36.2 % (37-47); Lymphocyte # 1.79 X10^3/ul (0.83-4.51); Lymphocyte % 22.1 % (19-41); Mean Corp Hgb Conc 33.1 g/dL (32-36); Mean Corpuscular Hgb 29.4 pg (27.0-32.0); Mean Corpuscular Volume 88.7 fL (81-99); Mean Platelet Vol. 9.3 fl (6.2-12.0); Monocyte# 0.71 X10^3/uL; Monocyte% 8.8 % (0-10); NRBC Flagged by Analyzer 0 % (0-5); Neutrophil # 5.42 X10^3/uL (2.7-7.7); Platelet Count 264 K/mm3 (150-450); RBC Distribution Width CV 12.3 % (11.6-14.6); Red Blood Count 4.08 M/mm3 (4.2-5.4); White Blood Count 8.1 K/mm3 (4.4-11.0)
[2021-09-06] MEDS: 0.9% Normal Saline 1,000 ML 1000 ML IV (21:00)
[2021-09-06 21:25] LABS: Bacteria 0 SEEN /hpf (None Seen); Mucous, Urine 0 SEEN /hpf (<or=2+); Red Blood Cells-Urine 0 SEEN /hpf (0-5); Squamous Epithelial Cells - UA 0 SEEN /hpf (5-10); White Blood Cells 0 SEEN /hpf (0-5)
[2021-09-06 21:33] LABS: Color, Urine Straw (Yellow); Glucose, Dipstick Normal (Normal); Ketone-Dipstick Negative (Negative); Leukocyte Esterase-Dipstick Negative /ul (Negative); Nitrite-Dipstick Negative (Negative); Occult Blood-Urine 25 /ul (Negative); Protein-Dipstick Negative (Negative); Urine Bilirubin Dipstick Negative (Negative); Urine Clarity Clear (Clear); Urine Urobilinogen Normal (Normal)
[2021-09-06 21:48] LABS: hCG Titer Quant., Serum 1864 mIU/mL (1-3)
[2021-09-06 21:57] VITALS: RESP 14
[2021-09-07] VITALS (14 sets, daily range): BP systolic 89–121; BP diastolic 51–83; PULSE 70–94; RESP 14–18; TEMP 36.3–37; O2SAT 76–99; BMI 29.0; BMI 31.1
[2021-09-07] MEDS: Morphine 4 MG/ML Syringe IV ×2 (00:31→02:18)
[2021-09-07] MEDS: Ondansetron 4 MG/2 ML Vial IV ×2 (00:31→05:50)
--- NOTE | 2021-09-07 01:43 | HP.PCM_ITS ---
HPI - General HPI Narrative TANYA DENT, is a 31 F who presented to ED with vaginal bleeding & pelvic pain. She reports having severe right lower quadrant abdominal pain that prompted her ED visit. Patient went to the bathroom where she passed a small clot the size of a pea and noted some bleeding in the toilet. Patient had a similar episode on 09/04 and was seen in the ER. She had a quant and a pelvic ultrasound which could not visualize a . Patient is approximately 5 weeks . Patient had recent reversal of tubal ligation in June of 2021 at [facility]. Pain medications in the ED have made the pain tolerable. 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, 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 history of recent travel: No sexually active: Yes Smoking Status: Never smoker alcohol intake: current alcohol intake frequency: holidays/special occasions only substance use type: does not use diet: low carbohydrate what type of physical activity do you participate in: running seatbelt use: always do you feel safe at home: Yes additional social history: Vital Signs Vital Signs Vital Signs: 09/06/21 19:47 09/06/21 21:57 09/07/21 00:30 Temperature 97.8 F Temperature Source Temporal Pulse Rate 90 76 Respiratory Rate 16 14 18 Blood Pressure 121/78 H 121/83 H Blood Pressure Mean 92 95 Blood Pressure Source Blood Pressure Position Blood Pressure Location Pulse Ox 98 98 Oxygen Delivery Method Room Air Room Air 09/07/21 01:28 09/07/21 01:32 Temperature 98.6 F 98.6 F Temperature Source Oral Oral Pulse Rate 76 75 Respiratory Rate 16 16 Blood Pressure 104/61 104/61 Blood Pressure Mean 75 75 Blood Pressure Source Monitor Blood Pressure Position Supine Blood Pressure Location Right Arm Pulse Ox 98 97 Oxygen Delivery Method Room Air Room Air Weight Weight: 180 lb Body Mass Index (BMI) 29.0 Physical Exam Const alert and oriented x3 HEENT head/scalp atraumatic Resp normal respiratory effort GI normal to inspection, nondistended, normoactive bowel sounds GI Narrative: mild diffuse lower abdominal tenderness, no rebound or guarding Palpation: tender Extremity no clubbing, cyanosis or edema Neuro CN's II-XII intact bilaterally Results Lab / Micro Data Result Diagrams: 09/06/21 20:50 Labs: Laboratory Results - last 24 hr 09/06/21 20:50: WBC 8.1, RBC 4.08 L, Hgb 12.0, Hct 36.2 L, MCV 88.7, MCH 29.4, MCHC 33.1, RDW Std Deviation 40.0, RDW Coeff of Lauren 12.3, Plt Count 264, MPV 9.3, Immature Gran % (Auto) 0.500, Neut % (Auto) 67.0, Lymph % (Auto) 22.1, [place] % (Auto) 8.8, Eos % (Auto) 1.1, Baso % (Auto) 0.5, Absolute Neuts (auto) 5.4, Absolute Lymphs (auto) 1.79, Nucleated RBC % 0 09/06/21 21:01: HCG, Quant 1864 H 09/06/21 21:13: Urine Color Straw, Urine Clarity Clear, Urine pH 5.0, Ur Specific [place] 1.010, Urine Protein Negative, Urine Glucose (UA) Normal, Urine Ketones Negative, Urine Occult Blood 25 H, Urine Nitrite Negative, Urine Bilirubin Negative, Urine Urobilinogen Normal, Ur Leukocyte Esterase Negative, Urine RBC 0 SEEN, Urine WBC 0 SEEN, Ur Squamous Epith Cells 0 SEEN, Urine Bacteria 0 SEEN, Urine Mucus 0 SEEN Radiology Impression Obstetrics Ultrasound 09/06/21 20:35 IMPRESSION: No intrauterine gestation. Thickened endometrium. Right adnexal mass and moderate free fluid in the cul-de-sac. In view of the right sided pain, ectopic should be considered. Correlate with beta-hCG. Consider ASSET PROTECTION DETECTIVE consult. Electronically Signed: Victor Manuel Thomas MD at 0:03 EST , Service support , ADDENDUM: 09/07/21 0013 IMPRESSION: No intrauterine gestation. Thickened endometrium. Right adnexal mass and moderate free fluid in the cul-de-sac. In view of the right sided pain, ectopic should be considered. Correlate with beta-hCG. Consider ASSET PROTECTION DETECTIVE consult. N.B. : The above Results were Read Back by Victor Manuel Thomas MD to Garry Yates MD, and understanding confirmed on 09/07/2021 00:06:59 (ET). Electronically Signed: Victor Manuel Thomas MD at 0:03 EST , Service support , Assessment & Plan Assessment/Plan (1) Ectopic : PLAN: 31yo female with right ectopic Reviewed US findings & hcg quants from 09/04 & 09/06. These tests in addition to patients clinical presentation & h/o tubal reversal are consistent with a ruptured right ectopic . Counseled patient on R/B/A of treatment options & patient wishes to proceed with surgical management. Patient consented for exploratory laparotomy with right salpingectomy and possible salpingostomy.
--- NOTE | 2021-09-07 02:30 | FAL_PTH ---
PATIENT: TANYA FREDERICK LOC: MS3 U#:[id number] AGE/SX: 31/ ROOM: MS317 RE09/07/[address]: Dr. Elenita Berg MD : 1990 BED: 1 DIS: 09/07/2021 SPEC #: [id number] RECD: 09/07/21 11:24 STATUS: FEI STEELRaya #: [id number] KEIRY: 09/07/21 02:[address]: Elenita Berg DEPT: SURGICAL PATHOLOGY RECD BY: Jeanie Moctezuma ENTERED: 09/07/21 12:27 SP TYPE: ECTOPIC OTHR DR: MARIANNA Cheng Tissues: ECTOPIC PREG Procedures: Surgery Specimen Level IV HEADER OPERATION: Removal ectopic , right salpingectomy PRE-OP DIAGNOSIS: Ectopic TISSUE SUBMITTED: Right fallopian tube MICROSCOPIC DIAGNOSIS Right fallopian tube, salpingectomy: Fallopian tube with focal decidual changes and trophoblastic cells, consistent with ectopic . See comment. EDSON:mell 09/08/2021 COMMENT Chorionic villi are not identified. The entire specimen is examined. MICROSCOPIC DESCRIPTION Slides are reviewed. GROSS DESCRIPTION Received in fixative is one container labeled with the patient's name and designated right fallopian tube. The specimen consists of a portion of fallopian tube measuring 4 cm in length and up to 1 cm in diameter. The fimbrial end is noted. A blood clot is noted at the fimbrial end. The lumen shows a small amount of blood clot. No tissue is identified. Also present in the container is a second piece of soft tissue measuring 2 x 1 x 0.3 cm. The entire specimen is submitted in three cassettes. / EDSON:mell 09/07/21 TC:5 CPT: 52071
--- NOTE | 2021-09-07 02:37 | PCM.OPRPT ---
Report of Operation Date of Procedure: 09/07/21 Pre-Operative Diagnosis: Right ectopic Post-Operative Diagnosis: Same Surgery/Procedure Performed:: Right salpingectomy Description of Surgical Findings:: normal appearing left ovary, left fallopian tube, right ovary & uterus. edematous & swollen right fallopian tube containing suspected ectopic . Surgeon: Elenita Berg expeller worker: Darnell Carlos Type of Anesthesia: General/Supplemental Specimen's removed: right fallopian tube Estimated Blood Loss (mL): 100ml Fluids Replaced: 1000ml Description of Procedure: Patient taken to the OR where general anesthesia was placed. She was placed in the dorsal supine position, prepped & drapped. A pfannensteil skin incision was made in her scar and taken down the the level of her fascia. The fascia was incised incised in the midline and extended laterally with the Collazo scissors. The rectus muscles were in the midline and the peritoneum was entered carefully and bluntly. Left adnexa & uterus examined & found to be normal. Right ovary normal but right fallopian tube edematous with mass that is suspected ectopic . The right fallopian tube was grasped, cauterized and cut with the ligasure device. This process was repeated until the entire right fallopian tube was excised. 0 vicryl suture placed to obtain excellent hemostasis of the tubal ligation site. The pelvis was irrigated and suctioned. Arben placed over the tubal ligation site. The peritoneum was closed with vicryl suture in running fashion The rectus muscle was examined and any bleeding was Bovie cauterized. The fascia was closed with PDS suture in a running standard fashion. The subcutaneous tissue was examined. The subcutaneous tissue was reapproximated with interrupted sutures. The skin was closed in a subcuticular fashion by the TIRE MAINTENANCE TECHNICIAN while I was present in OR The remainder of the procedure was performed by me with assistance. Procedure Start Time: 03:22 Procedure Stop Time: 04:16 Admit VTE Documentation VTE Present on Admission: No VTE Mechan Device Prophylaxis: SCD's VTE Pharm Prophylaxis ordered?: No Reason prophylaxis not ordered:: Treatment Not Indicated
[2021-09-07] MEDS: 0.9% Normal Saline 1,000 ML 100 ML IV (06:07)
[2021-09-07] MEDS: proCHLORPERazine 10 MG/2 ML Vial 5 MG IV (07:45)
[2021-09-07] MEDS: 0.9% Saline Lock 10 ML Syringe IV (07:46)
[2021-09-07] MEDS: HYDROmorphone 0.5 MG/0.5 ML SYRINGE IV (08:00)
--- NOTE | 2021-09-07 13:18 | NURSING ---
Pt assisted up to BR, voided without difficulty. Pt BP 89/51. Denies being dizzy/lightheaded. Updated Dr Candelaria on pt BP - we will continue to monitor, repeat CBC, & recheck BP in a hour.
[2021-09-07 13:36] LABS: Absolute Lymphocyte Count 0.48 X10^3/uL (0.83-4.51); Basophil# 0.01 X10^3/uL; Basophil% 0.1 % (0-1); Hematocrit 30.8 % (37-47); Hemoglobin 10.4 g/dL (12.0-15.0); Lymphocyte # 0.48 X10^3/ul (0.83-4.51); Lymphocyte % 4.8 % (19-41); Mean Corp Hgb Conc 33.8 g/dL (32-36); Mean Corpuscular Hgb 30.1 pg (27.0-32.0); Mean Corpuscular Volume 89.3 fL (81-99); Mean Platelet Vol. 8.9 fl (6.2-12.0); Monocyte# 0.49 X10^3/uL; Monocyte% 4.9 % (0-10); NRBC Flagged by Analyzer 0 % (0-5); Neutrophil # 8.96 X10^3/uL (2.7-7.7); Neutrophil % 89.9 % (47-70); POSITIVE DIFFERENTIAL YES; Platelet Count 209 K/mm3 (150-450); RBC Distribution Width CV 12.3 % (11.6-14.6); RBC Distribution Width SD 39.9 fl (35.1-43.9); Red Blood Count 3.45 M/mm3 (4.2-5.4)
[2021-09-07 14:20] LABS: Differential Indicated SCAN CRITERIA MET
[2021-09-07] MEDS: oxyCODONE 5 MG Tablet PO ×2 (15:00→18:50)
[2021-09-07] MEDS: Acetaminophen 325 MG Tablet 650 MG PO (15:01)
[2021-09-07 15:10] LABS: Platelet Estimate ADEQUATE (ADEQ); Red Cell Morphology NORM C+C NORMAL (NORM C&C)
--- NOTE | 2021-09-07 15:12 | NURSING ---
CALL TO DR FLORES TO GIVE HER UPDATE ON PT BP & HGB
--- NOTE | 2021-09-07 18:04 | DCINST_ITS ---
Discharge Instructions Diet Discharge Diet: No restrictions Activity Discharge Activity: May Not Drive (until strong enough to slam on brake or turn steering wheel sharply) Ice area for (Minutes): 15 Weight Bearing Status: Weight bearing as tolerated Lifting Restrictions: nothing heavier than 10 lbs Dressing / Incision Call your doctor if your incision/area has: Continuous Slow Oozing, Sudden Increased Bleeding, Increased Pain/ Swelling, Increased Redness, Foul Smelling Discharge and Swelling at the incision site Call your doctor if you observe: Fever of 101 or Higher, Coldness, Increased Pain, Numbness or Tingling, Change in Color, Inability to urinate, Inability to have a bowel movement, Using more than 1 pad per hour, Shortness of breath, Dizziness, Fainting spells, Swelling in the ankles, Chest pain, Increased palpitations (irregular heartbeat), Calf discomfort and Uncontrolled pain Suture Line Care: Avoid Pulling/Pushing and Avoid Pinching/Bending Remove Dressing in: 4 days Cleanse incision/area with: Soap & Water Follow Up Care When: 1 week Test Results: Test results from this visit will be discussed in further detail at your follow-up appointment, if applicable. Discharge Plan Admission Admit Date/Time: 09/07/21 05:52 Primary Reason for Your Visit: ectopic Attending Provider: Elenita Berg Primary Care Provider: Sanjana Anguiano NP Instructions Patient Instructions: Ectopic Additional Instructions / Restrictions: No heavy lifting greater than 10 lbs. Limit bending at the waist and twisting/turning. Ok to drive once you feel strong enough to slam on a brake or turn a steering wheel sharply. No intercourse and nothing in the vagina. Discharge Orders/Prescriptions Prescriptions: Continued 1 cap PO/SL DAILY RF: 0 Referrals / Follow Up: Sanjana Anguiano NP, TECHNOLOGY ASSISTANT-C [Primary Care Provider] - Disposition Disposition (needs filled in before D/C Order can be placed): Home, Self Care
--- NOTE | 2021-09-07 18:05 | PN.OBGYN_ITS ---
Subjective Subjective Patient doing well. Pain well controlled. Ambulating and voiding without difficulty. No lightheadedness or dizziness. No chest pain or shortness of breath. No leg pain. Tolerating regular diet without nausea or vomiting. Objective Data Objective Data Vital Signs: Vital Signs Temp Pulse Resp BP Pulse Ox 98.2 F 77 18 102/53 L 76 09/07/21 15:04 09/07/21 15:04 09/07/21 15:04 09/07/21 15:04 09/07/21 15:04 Oxygen Delivery Method Room Air Weight: 192 lb 10.944 oz Body Mass Index (BMI) 31.1 Intake & Output: Intake and Output for Last 24 Hours 09/05/21 09/06/21 09/07/21 23:59 23:59 23:59 Intake Total 2440 / 2440 Output Total 650 / 650 Balance 1790 / 1790 Lab / Micro Data Result Diagrams: 09/07/21 13:29 Labs: Laboratory Results - last 24 hr 09/06/21 20:50: WBC 8.1, RBC 4.08 L, Hgb 12.0, Hct 36.2 L, MCV 88.7, MCH 29.4, MCHC 33.1, RDW Std Deviation 40.0, RDW Coeff of Lauren 12.3, Plt Count 264, MPV 9.3, Immature Gran % (Auto) 0.500, Neut % (Auto) 67.0, Lymph % (Auto) 22.1, [place] % (Auto) 8.8, Eos % (Auto) 1.1, Baso % (Auto) 0.5, Absolute Neuts (auto) 5.4, Absolute Lymphs (auto) 1.79, Nucleated RBC % 0 09/06/21 21:01: HCG, Quant 1864 H 09/06/21 21:13: Urine Color Straw, Urine Clarity Clear, Urine pH 5.0, Ur Specific [place] 1.010, Urine Protein Negative, Urine Glucose (UA) Normal, Urine Ketones Negative, Urine Occult Blood 25 H, Urine Nitrite Negative, Urine Bilirubin Negative, Urine Urobilinogen Normal, Ur Leukocyte Esterase Negative, Urine RBC 0 SEEN, Urine WBC 0 SEEN, Ur Squamous Epith Cells 0 SEEN, Urine Bacteria 0 SEEN, Urine Mucus 0 SEEN 09/07/21 00:33: Blood Type O POSITIVE, Antibody Screen NEGATIVE 09/07/21 13:29: WBC 10.0, RBC 3.45 L, Hgb 10.4 L, Hct 30.8 L, MCV 89.3, MCH 30.1, MCHC 33.8, RDW Std Deviation 39.9, RDW Coeff of Lauren 12.3, Plt Count 209, MPV 8.9, Immature Gran % (Auto) 0.300, Neut % (Auto) 89.9 H, Lymph % (Auto) 4.8 L, [place] % (Auto) 4.9, Eos % (Auto) 0.0, Baso % (Auto) 0.1, Absolute Neuts (auto) 9.0 H, Absolute Lymphs (auto) 0.48 L, Nucleated RBC % 0, Differential Comment , Platelet Estimate ADEQUATE, RBC Morphology NORM C+C Micro: Microbiology 09/07/21 Unknown Nasal Secretion SARS-CoV-2 Antigen (Rapid) - Final Radiography Diagnostic Testing: Radiology Impression Obstetrics Ultrasound 09/06/21 20:35 IMPRESSION: No intrauterine gestation. Thickened endometrium. Right adnexal mass and moderate free fluid in the cul-de-sac. In view of the right sided pain, ectopic should be considered. Correlate with beta-hCG. Consider DIABETES TRAINER consult. Electronically Signed: Victor Manuel Thomas MD at 0:03 EST , Service support , ADDENDUM: 09/07/21 0013 IMPRESSION: No intrauterine gestation. Thickened endometrium. Right adnexal mass and moderate free fluid in the cul-de-sac. In view of the right sided pain, ectopic should be considered. Correlate with beta-hCG. Consider DIABETES TRAINER consult. N.B. : The above Results were Read Back by Victor Manuel Thomas MD to Garry Yates MD, and understanding confirmed on 09/07/2021 00:06:59 (ET). Electronically Signed: Victor Manuel Thomas MD at 0:03 EST , Service support , Physical Exam Const alert and no apparent distress Resp normal respiratory effort GI soft to palpation and non-distended GI Narrative: ATTP, dressing c/d/i Assessment & Plan (1) Ectopic : PLAN: Meeting milestones to go home and desires to go home. Does not want pain medication. Reviewed discharge instructions. Has follow up scheduled.
== END 2021-09-07 19:09 | disposition home or self-care (01) ==
LOC: ED 09-07 00:18 → SDC 09-07 01:28 → MS3 09-07 01:29 → SDC 09-07 13:30 → MS3 09-07 13:30
PROVIDERS: Obstetrics & Gynecology; Admitting Provider Obstetrics & Gynecology; Emergency Provider Emergency Medicine; PCP Nurse Practitioner Family; Visit Provider Obstetrics & Gynecology
PROC: 10T24ZZ Resection of Products of Conception, Ectopic, Percutaneous Endoscopic Approach (ICD-10-PCS; CPT 59150; principal; 2021-09-07 02:30)
DX: O00.90 Unspecified ectopic pregnancy without intrauterine pregnancy (principal); Z3A.01 Less than 8 weeks gestation of pregnancy; E28.2 Polycystic ovarian syndrome; J45.909 Unspecified asthma, uncomplicated; O26.891 Other specified pregnancy related conditions, first trimester; O99.511 Diseases of the respiratory system complicating pregnancy, first trimester
CPT/HCPCS: 59151; 36415; 76817; 81001; 84702; 85025; 86850; 86900; 86901; 87426; 88305; 96361; 96374; 96375; 96376; 99218; 99284; J7030; A4216; G0378; J2405

== ENCOUNTER → 2025-03-18 | Outpatient (CLI) | payer MEDICAID, SELFPAY | END | disposition home or self-care (01) | LOC: LABSPEC 03-19 09:03 | PROVIDERS: PCP Nurse Practitioner Family; Visit Provider Physician Assistant | DX: R30.0 Dysuria (principal) | CPT/HCPCS: 87086; 87088; 87186 ==

== ENCOUNTER 2025-03-22 13:27 | Emergency (ER) | payer MEDICAID, SELFPAY ==
[2025-03-22 13:28] VITALS: BP 139/78; PULSE 120; RESP 18; TEMP 37.3; O2SAT 98; BMI 38.7
--- NOTE | 2025-03-22 14:04 | EX.ED.DYSGE1 ---
HPI <CHERYL Carroll - Last Filed: 03/22/25 15:37> History of Present Illness Chief Complaint: Abscess Narrative Narrative: Patient presenting today due to concerns for an abscess to her right upper glute she has had over the last several days. She reports that last Sunday she began having symptoms of a UTI including urinary frequency, she went to urgent care and was diagnosed with a UTI and placed on Augmentin. She reports that since then she has had increased pain to this abscess, she reports a history of hidradenitis suppurativa. She is currently 22 weeks . She reports that she did have a fever yesterday 101 ?F. She denies associated nausea, vomiting, and abdominal pain. She reports her urinary symptoms have improved since starting the antibiotic. PFSH <CHERYL Carroll - Last Filed: 03/22/25 15:37> [facility] [place] Medical History Ectopic Anxiety Asthma Home Medications ?Medication ?Instructions ?Recorded ?Last Taken ?Type 1 cap PO/SL DAILY 09/06/21 Unknown History amoxicillin 875 mg-potassium 1 tab PO BID #14 tabs 03/18/25 Unknown Rx clavulanate 125 mg tablet buspirone 7.5 mg tablet 7.5 mg PO TID 03/18/25 Unknown History cholecalciferol (vitamin D3) 25 25 mcg PO QDAY 03/18/25 Unknown History mcg (1,000 unit) capsule mirtazapine 30 mg tablet 30 mg PO QHS 03/18/25 Unknown History clindamycin HCl 300 mg capsule 300 mg PO Q6H #20 CAPSULES 03/22/25 Unknown Rx (Cleocin HCl) ferrous sulfate 325 mg (65 mg 325 mg PO DAILY 03/22/25 Unknown History iron) tablet (FeroSul) Allergy/AdvReac Type Severity Reaction Status Date / Time Sulfa (Sulfonamide Allergy Severe Anaphylaxis Verified 03/22/25 13:30 Antibiotics) Family History Mother Rheumatoid arthritis Unknown Asthma Diabetes Heart disease Surgical History History of tubal ligation History of delivery History of tonsillectomy and adenoidectomy Social History household members: significant other and children number of children: 3 current occupational status: employed current occupation: [employer] history of recent travel: No sexually active: Yes Smoking Status: Light Smoker (<10/day) alcohol intake: current alcohol intake frequency: holidays/special occasions only substance use type: does not use diet: low carbohydrate what type of physical activity do you participate in: running seatbelt use: always do you feel safe at home: Yes additional social history: ROS <CHERYL Carroll - Last Filed: 03/22/25 15:37> ROS ED Constitutional Constitutional ED: Reports fever(s) Cardiovascular Cardiovascular: Denies chest pain Respiratory/Chest Respiratory/Chest: Denies dyspnea Gastrointestinal Gastrointestinal: Denies abdominal pain, nausea or vomiting Genitourinary Genitourinary ED: Denies dysuria, hematuria or urinary urgency Musculoskeletal Musculoskeletal: Denies arthralgias or myalgias Integumentary Reports abscess Neurologic Neurologic: Denies weakness EXAM <CHERYL Carroll - Last Filed: 03/22/25 15:37> Physical Exam Const Vital Signs: 03/22/25 13:28 03/22/25 15:00 03/22/25 15:03 Temperature 99.1 F 98.2 F 98.2 F Temperature Source Oral Oral Oral Pulse Rate 120 H 89 90 Respiratory Rate 18 14 16 Blood Pressure 139/78 H 96/48 L 106/67 Blood Pressure Mean 98 64 80 Pulse Ox 98 95 96 Oxygen Delivery Method Room Air Room Air Room Air Oxygen Flow Rate (L/min) 96 03/22/25 15:22 Temperature 98.8 F Temperature Source Pulse Rate 72 Respiratory Rate 17 Blood Pressure 96/48 L Blood Pressure Mean 64 Pulse Ox 97 Oxygen Delivery Method Oxygen Flow Rate (L/min) Positive well nourished, well developed and no apparent distress General Appearance ED: well developed HEENT Reports normocephalic and head/scalp atraumatic Mouth ED: Yes moist mucous membranes normal Eyes PERRL and EOMs intact bilaterally Neck full ROM and supple Chest Wall inspection of chest normal Resp normal respiratory effort and clear to auscultation bilaterally Cardio regular rate and regular rhythm GI soft to palpation, non-tender, non-distended and no masses Back/Spine normal ROM and normal to inspection Extremity normal to inspection and full ROM Neuro oriented x3, CN's II-XII intact bilaterally, moves all extremities, no focal motor deficits and no sensory deficits noted Sensorium / Orientation: awake and alert Psych mental status grossly normal and thought process normal Skin Skin Narrative: No rashes. Fluctuant erythematous abscess with minimal surrounding cellulitis to the right superior glute near the tailbone. <Dr. Ken Giraldo DO - Last Filed: 03/22/25 15:17> Physical Exam Const Vital Signs: 03/22/25 13:28 03/22/25 15:00 03/22/25 15:03 Temperature 99.1 F 98.2 F 98.2 F Temperature Source Oral Oral Oral Pulse Rate 120 H 89 90 Respiratory Rate 18 14 16 Blood Pressure 139/78 H 96/48 L 106/67 Blood Pressure Mean 98 64 80 Pulse Ox 98 95 96 Oxygen Delivery Method Room Air Room Air Room Air Oxygen Flow Rate (L/min) 96 03/22/25 15:22 Temperature 98.8 F Temperature Source Pulse Rate 72 Respiratory Rate 17 Blood Pressure 96/48 L Blood Pressure Mean 64 Pulse Ox 97 Oxygen Delivery Method Oxygen Flow Rate (L/min) [facility] <CHERYL Carroll - Last Filed: 03/22/25 15:37> [facility] Narrative Medical decision making narrative: Patient presenting today due to concerns for an abscess to her right upper glute she has had over the last several days. She is currently taking Augmentin for a UTI and is 22 weeks . She initially was tachycardic here, however she is very anxious and tearful on my exam. She did calm down and her vitals improved. She is afebrile. Patient given Tylenol for pain. The abscess will require I&D, she is agreeable with this plan. Procedure note documented. She tolerated this well. We will place her on a few days of clindamycin and recommended she have close follow-up with her PCP/OB. Sitz bath's encouraged, wound care instructions discussed. Return instructions given and patient discharged home in stable condition. <Dr. Ken Giraldo DO - Last Filed: 03/22/25 15:17> [facility] Treatment and Re-Evaluation :: ED attending note: I evaluated the patient in conjunction with the PAULINE. I agree with his/her statements and above findings. I have personally performed a face to face assessment of the patient and have reviewed the PAULINE Note. I performed a substantive portion of the visit including all aspects of the following. I personally saw the patient performed chart review, physical exam, reviewed labs, imaging (if obtained), and formulated a treatment and management plan. This note was generated with [employer] dictation software. It may contain incorrect words, spelling, and punctuation that were not noted in review of the chart prior to signing. Procedures <CHERYL Carroll - Last Filed: 03/22/25 15:37> Other Procedures Procedure(s): Abscess: Wound cleaned with Betadine, anesthetized with 1% lidocaine with epinephrine, a #11 blade was used to make a small incision, copious amounts of purulent discharge was expelled from the wound, curved hemostats were used to break any loculations. the wound was then irrigated copiously with saline and bandaged. Discharge Plan Triage Chief Complaint: Abscess ED Midlevel Provider: Argenis White ED Provider: Ken Giraldo Dx/Rx/DC Orders Clinical Impression: Abscess, Instructions: Abscess Drainage Prescriptions: New clindamycin HCl [Cleocin HCl] 300 mg capsule 300 mg PO Q6H Qty: 20 0RF No Action mirtazapine 30 mg tablet 30 mg PO QHS buspirone 7.5 mg tablet 7.5 mg PO TID cholecalciferol (vitamin D3) 25 mcg (1,000 unit) capsule 25 mcg PO QDAY amoxicillin-pot clavulanate 875-125 mg tablet 1 tab PO BID Qty: 14 0RF 1 cap PO/SL DAILY ferrous sulfate [FeroSul] 325 mg (65 mg iron) tablet 325 mg PO DAILY Primary Care Provider: Sanjana Anguiano NP Referrals: Sanjana Anguiano NP, SUPERVISOR TRANSFERRING AND BOXING-C [Primary Care Provider] - 3-5 Days Activity Restrictions/Additional Instructions: Please have close follow-up with your PCP/OB for repeat wound check, perform sitz bath's and a clean bathtub twice daily over the next several days. Please return for any worsening symptoms, continued fevers, or any other concerns. Print Language: Spanish Disposition Disposition: Home, Self Care Discharge Date/Time: 03/22/25 15:24
--- OUTSIDE RECORDS SUMMARY | 2025-03-22 14:39 | XMS RPT_ITS | CCD ---
Author Organization [facility] Care Team Providers Care Supply Chain Associate Name Role Phone Maryjo Anguiano Primary Care Provider None, No PCP Unavailable Unavailable Unavailable Unavailable Maryjo Anguiano Primary Care Provider Aria Anguianoa K Primary Care Provider Aria Anguiano CNPa K Primary Care Provider [phone] Maryjo Anguiano CNP Primary Care Provider [phone] ARIA ANGUIANOA K Primary Care Unavailable GINNY CAMPOVERDE APRN Attending Unavailable GINNY CAMPOVERDE APRN Primary Care Unavailable GINNY CAMPOVERDE APRN Admitting Unavailable SILVIO, MARYJO Consulting Unavailable PROVIDER, UNKNOWN Consulting Unavailable ARIA ANGUIANOA Attending Unavailable SILVIO, MARYJO Consulting Unavailable SILVIO, MARYJO Primary Care Unavailable SILVIO, MARYJO Admitting Unavailable PROVIDER, UNKNOWN Consulting Unavailable SILVIO, MARYJO Consulting Unavailable SILVIO, MARYJO Primary Care Unavailable SILVIO, MARYJO Admitting Unavailable ARIA ANGUIANOA Attending Unavailable PROVIDER, UNKNOWN Consulting Unavailable AUTUMN HOLT Referring Unavailable SILVIO, MARYJO K Primary Care Unavailable Silvio DICTAPHONE TRANSCRIBER, Maryjo Primary Care Unavailable Alia Uribe Admitting Unavailable Alia Uribe Attending Unavailable Fern Baugh Admitting Unavailable Fern Baugh Attending Unavailable Silvio DICTAPHONE TRANSCRIBER, Maryjo Primary Care Unavailable JOAN, SZUI Referring Unavailable SILVIO, MARYJO K Primary Care Unavailable BAYRON RAE Attending Unavailable SILVIO, MARYJO K Primary Care Unavailable JOAN, SUZI Referring Unavailable SILVIO, MARYJO K Primary Care Unavailable JOAN, SUZI Referring Unavailable SILVIO, MARYJO K Primary Care Unavailable JOAN, SUZI Referring Unavailable SILVIO, MARYJO K Primary Care Unavailable JOAN, SUZI Referring Unavailable SILVIO, MARYJO K Primary Care Unavailable JOAN, SUZI Referring Unavailable SILVIO, MARYJO K Primary Care Unavailable JOAN, SUZI Attending Unavailable SILVIO, MARYJO K Primary Care Unavailable JOAN, SUZI Referring Unavailable SILVIO, MARYJO K Primary Care Unavailable JOAN, SUZI Referring Unavailable SILVIO, MARYJO K Primary Care Unavailable JOAN, SUZI Attending Unavailable JOAN, SUZI Referring Unavailable SILVIO, MARYJO K Primary Care Unavailable JOAN, SUZI Attending Unavailable SILVIO, MARYJO K Primary Care Unavailable BENDARAM, FRANK RANGEL Attending Unavaila ble SELF Referring Unavailable SILVIO, MARYJO K Primary Care Unavailable BENDARAM, FRANK RANGEL Referring Unavaila ble SILVIO, MARYJO K Primary Care Unavailable HAURY, BAYRON Referring Unavailable SILVIO, MARYJO K Primary Care Unavailable KEYSHAWN WELLS Attending Unavailable WELLSKEYSHAWN Referring Unavailable SILVIO, MARYJO K Primary Care Unavailable HAURY, BAYRON Attending Unavailable SELF Referring Unavailable SILVIO, MARYJO K Primary Care Unavailable KEYSHAWN WELLS Attending Unavailable SILVIO, MARYJO K Primary Care Unavailable ANGI CAMPOVERDE Attending Unavailable JOAN, SUZI Referring Unavailable SILVIO, MARYJO K Primary Care Unavailable DEYANIRA MOYER Attending Unavailable COMFORTDEYANIRA Referring Unavailable SILVIO, MARYJO K Primary Care Unavailable HAURY, BAYRON Referring Unavailable SILVIO, MARYJO K Primary Care Unavailable AUTUMN HOLT Attending Unavailable SILVIO, MARYJO K Primary Care Unavailable JOAN, SUZI Referring Unavailable SILVIO, MARYJO K Primary Care Unavailable IKER BONILLA Attending Unavailable HAURY, BAYRON Referring Unavailable SILVIO, MARYJO K Primary Care Unavailable JOAN, SUZI Referring Unavailable SILVIO, MARYJO K Primary Care Unavailable ELENITA JORGENSEN Attending Unavailable HAURY, BAYRON Referring Unavailable SILVIO, MARYJO K Primary Care Unavailable PLOTTS, IKER Referring Unavailable SILVIO, MARYJO K Primary Care Unavailable ELENITA JORGENSEN Attending Unavailable PLOTTS, IKER Referring Unavailable SILVIO, MARYJO K Primary Care Unavailable HAURY, BAYRON Referring Unavailable SILVIO, MARYJO K Primary Care Unavailable BENDARALeila, FRANK RANGEL Attending Unavaila ble JOAN, SUZI Referring Unavailable SILVIO, MARYJO K Primary Care Unavailable AUTUMN HOLT Attending Unavailable JOAN, SUZI Referring Unavailable SILVIO, MARYJO K Primary Care Unavailable JOAN, SUZI Attending Unavailable SILVIO, MARYJO K Primary Care Unavailable JOAN, SUZI Referring Unavailable SILVIO, MARYJO K Primary Care Unavailable DEYANIRA MOYER Attending Unavailable HAURY, BAYRON Referring Unavailable SILVIO, MARYJO K Primary Care Unavailable FRANK LYON Attending Unavaila ble SELF Referring Unavailable SILVIO, MARYJO K Primary Care Unavailable AUTUMN HOLT S Referring Unavailable SILVIO, MARYJO K Primary Care Unavailable SUZI FRANCO Referring Unavailable SILVIO, MARYJO K Primary Care Unavailable ELENA, RAMANJOAT Attending Unavailable SONJA MOYEREEN Referring Unavailable SILVIO, MARYJO K Primary Care Unavailable ELENA, RAMANJOAT Attending Unavailable ELENA, RAMANJOAT Referring Unavailable SILVIO, MARYJO K Primary Care Unavailable ELENA, RAMANJOAT Attending Unavailable ELENA, RAMANJOAT Referring Unavailable SILVIO, MARYJO K Primary Care Unavailable Silvio DICTAPHONE TRANSCRIBER-C, Maryjo Primary Care Provider [phone] Silvio DICTAPHONE TRANSCRIBER-C, Maryjo Referring Provider Kirill Pelaez Attending Provider [phone] Allergies Allergy Classification Reported Allergen(s) Allergy Type Date of Onset Reaction(s) Facility Sulfonamides (antibiotic) (2 sources) Sulfonamides (Antibiotic) Drug Allergy 0 Hives, Shortness of Breath [facility] [place] Work Phone: (20 sources) Sulfonamides (Antibiotic); Translations: [SULFA (SULFONAMIDE ANTIBIOTICS)] Drug Allergy 0 Hives, Shortness of Breath [facility] [place] Work Phone: (2 sources) Sulfamethoxazole ; Translations: [sulfa] Drug Allergy [facility] [address] Work Phone: (1 source) Sulfonamides (Antibiotic) Drug allergy (disorder) [facility] Repository (1 source) Sulfonamides (Antibiotic) Drug allergy (disorder) 1 [facility] Repository (1 source) Sulfonamides (Antibiotic) Allergy to substance 5 Anaphylaxis [facility] Comment on above: Pt. states she has b een told of allergy as a child but does not remember Medications Current Medications Medication Drug Class(es) Dates Sig (Normalized) Sig (Original) acetaminophen 500 mg oral tablet (20 sources) Start: 06-15-2021 take 2 tablets by mouth every eight hours as needed acetaminophen (TYLENOL EXTRA STRENGTH) 500 mg tablet Take 2 tablets by mouth every 8 hours as needed for pain. 48 tablet 06/15/2021 Active Comment on above: Take 2 tablets by mo [facility] every 8 hours as needed for pain. amoxicillin 875 mg / clavulanate 125 mg oral tablet (4 sources) Penicillin-class Antibacterial Start: 03-18-2025 take 1 tablet by mouth twice daily amoxicillin-clavul anate potassium (AUGMENTIN) 875-125 mg per tablet Take 1 tablet by mouth two times a day. 03/18/2025 Active Start: 03-18-2021 End: 03-28-2021 Amoxicillin-Pot Clavulanate (Augmentin) 875-125 mg tablet Discontinued 1 {tbl} PO Q12H 20 10 0 March 18, 2021 12:00am March 27, 2021 12:00am March 28, 2021 12:01am Acute sinusitis, unspecified Start: 08-19-2018 End: 08-21-2019 Amoxicillin-Pot Clavulanate 875-125 mg tablet Discontinued 1 {tbl} PO TWICE A DAY 28 0 August 19, 2018 1:00am August 21, 2019 9:46am aspirin 81 mg delayed release oral tablet (20 sources) Platelet Aggregation Inhibitor, Nonsteroidal Anti-inflammatory Drug Start: 12-24-2024 take 1 tablet by mouth once daily aspirin, enteric coated (ECOTRIN LOW STRENGTH) 81 mg EC tablet Indications: Encounter for supervision of high risk in first trimester, antepartum (HCC) Take 1 tablet by mouth once daily. 90 tablet 3 12/24/2024 Active Start: 11-23-2023 take 1 tablet by yvan th once daily aspirin, enteric coated (ASPIRIN, ENTERIC COATED) 81 mg EC tablet Take 1 tablet by mouth once daily. 30 tablet 0 11/23/2023 Active Comment on above: Take 1 tablet by yvan th once daily. azithromycin 500 mg oral tablet (4 sources) Macrolide Antimicrobial Start: 05-30-20 End: 05-30-20 take 1 tablet by mouth once azithromycin (ZITHROMAX) 500 mg tablet Indications: Early loss Take 1 tablet by mouth one time only for 1 dose. 1 tablet 05/30/2024 05/30/2024 Active Start: 02-06-2024 take 1 tablet by yvan th once daily azithromycin (ZITHROMAX) 500 mg tablet Take 1 tablet by mouth once daily. 1 tablet 0 02/06/2024 Active benzonatate 100 mg oral capsule (7 sources) Non-narcotic Antitussive Start: 12-21-2023 End: 01-20-2024 take 1 capsule by mouth every eight hours as needed benzonatate (TESSALON PERLE) 100 mg capsule Take 1 capsule by mouth three times a day as needed for cough. 30 capsule 1 12/21/2023 01/20/2024 Active Start: 05-25-2023 End: 10-26-2023 take 2 capsules by mouth every eight hours as needed benzonatate (TESSALON PERLES) 100 mg capsule Take 2 capsules by mouth three times daily as needed for cough. 60 capsule 0 05/25/2023 10/26/2023 Discontinued (Course of therapy completed) Comment on above: Take 2 capsules by m outh three times daily as needed for cough. Take 1 capsule by mo uth three times a day as needed for cough. busPIRone hydrochloride 7.5 mg oral tablet (20 sources) Start: 03-18-2025 take 1 tablet by mouth three times daily Buspirone 7.5 mg tablet Active 7.5 mg PO THREE TIMES A DAY March 18, 2025 12:00am Start: 11-23-2023 take 1 tablet by yvan th three times daily busPIRone (BUSPAR) 5 mg tablet Take 1 tablet by mouth three times a day. 90 tablet 1 11/23/2023 Active End: 10-26-2023 buspirone HCl (BUSPIRONE ORA L) Take by mouth. 0 10/26/2023 Discontinued (Course of therapy completed) buspirone HCl (B USPIRONE ORAL) Take by mouth. 0 Active Comment on above: Take by mouth. Take 1 tablet by yvan th three times a day. cholecalciferol 0.025 mg oral capsule (20 sources) Vitamin D Start: 03-18-20 take 1 capsule by mouth once daily Cholecalciferol (Vitamin D3) 25 mcg (1,000 unit) capsule Active 25 ug PO daily March 18, 2025 12:00am Start: 11-26-2023 Cholecalcifero l, Vitamin D3, 50 mcg (2,000 unit) cap 11/26/2023 Active Doxylamine (14 sources) doxylamine succinate (UNISOM, DOXYLAMINE, ORAL) Take by mouth. 0 Active Comment on above: Take by mouth. famotidine 20 mg oral tablet (20 sources) Histamine-2 Receptor Antagonist Start: take 1 tablet by mouth twice daily famotidine (PEPCID) 20 mg tablet Take 1 tablet by mouth two times a day. 180 tablet 2 12/24/2024 Active LORazepam 0.5 mg oral tablet (15 sources) Benzodiazepine Start: End: take 1 tablet by mouth once daily as needed LORazepam (ATIVAN) 0.5 mg Indications: JOSLYN (generalized anxiety disorder) , PTSD (post-traumatic stress disorder) Take 1 tablet by mouth once daily as needed (panic) for up to 30 days. 3 tablet 03/19/2025 04/18/2025 Active Start: 05-30-2024 End: 05-30-2024 LORazepam (ATIVAN) 2 mg tab Indications: Early loss Take 1 tablet by mouth one time only for 1 dose. 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 If consent not yet signed, please bring medication to appointment. 1 tablet 05/30/2024 05/30/2024 Active mirtazapine 45 mg oral tablet (18 sources) Start: 03-19-2025 End: 04-18-2025 take 1 tablet by mouth once daily at bedtime mirtazapine (REMERON) 45 mg tablet Indications: JOSLYN (generalized anxiety disorder) , PTSD (post-traumatic stress disorder) Take 1 tablet by mouth daily at bedtime. 30 tablet 03/19/2025 04/18/2025 Active Start: 02-11-2025 End: 04-10-2025 take 1 tablet by mouth once daily at bedtime mirtazapine (REMERON) 30 mg tablet Indications: PTSD (post-traumatic stress disorder) , JOSLYN (generalized anxiety disorder) Take 1 tablet by mouth daily at bedtime. 30 tablet 03/11/2025 03/19/2025 Discontinued Start: 01-29-2025 End: 03-04-2025 take 0.5 tablet by mouth once daily at bedtime, then take 1 tablet by mouth once daily at bedtime mirtazapine (REMERON) 15 mg tablet Indications: PTSD (post-traumatic stress disorder) , JOSLYN (generalized anxiety disorder) Take 0.5 tablets by mouth daily at bedtime for 7 days, THEN 1 tablet daily at bedtime for 27 days. 30 tablet 01/29/2025 02/11/2025 Discontinued ondansetron 4 mg disintegrating oral tablet (20 sources) Serotonin-3 Receptor Antagonist Start: 02-06-2024 End: 01-13-2025 take 1 tablet by mouth every eight hours as needed ondansetron orally disintegrating (ZOFRAN ODT) 4 mg disintegrating tablet Take 1 tablet by mouth every 8 hours as needed for nausea/vomiting. 60 tablet 3 01/13/2025 Active OTC NUTRITIONAL SUPPLEMENT (13 sources) OTC NUTRITIONAL SUPPLEMENT Take by mouth once daily. Myoinstol Active oxyCODONE hydrochloride 5 mg oral tablet (4 sources) Opioid Agonist Start: 02-06-2024 End: 02-08-2024 take 1 tablet by mouth every six hours as needed oxyCODONE IR (ROXICODONE) 5 mg immediate release tablet Indications: Post-operative state Take 1-2 tablets by mouth every 6 hours as needed for pain for up to 2 days. 8 tablet 0 02/06/2024 02/08/2024 Active Start: 11-29-2017 End: 08-19-2018 take 5-10 mg by mouth every six hours as needed for pain Oxycodone 5 MG tablet Discontinued 5 - 10 mg PO EVERY 6 HOURS NEEDED as needed for Mod-Severe Pain (-06/19) 28 7 0 November 29, 2017 12:00am August 19, 2018 2:01pm delivery delivered Postoperative abdominal pain Encounter for delivery without indication Unspecified abdominal pain PNV/iron/omega3/folic acid/m in (PRENAT [id number] ORAL) (20 sources) PNV/iron/omega3/ folic acid/min (PRENAT [id number] ORAL) Take by mouth. Active PNV/iron/omega3/ folic acid/min (PRENAT [id number] ORAL) Take by mouth. 0 Active Comment on above: Take by mouth. polyethylene glycol 3350 79788 mg powder for oral solution (16 sources) Osmotic Laxative Start: 01-13-2025 polyethylene glycol 3350 (MIRALAX) 17 gram packet Take 1 packet by mouth once daily. Dissolve dose in 4 - 8 ounces of liquid and take as directed. 10 each 01/13/2025 Active (1 source) Start: 09-06-2021 Active 1 NMA SL/PO DAILY September 06, 2021 1:00am Completed/Discontinued Medications Medication Drug Class(es) Dates Sig (Normalized) Sig (Original) [id number] 200 actuat albuterol 0.09 mg/actuat metered dose inhaler (9 sources) beta2-Adrenergic Agonist Start: 05-25-2023 End: 12-21-2023 take 2 puff(s) by inhalation every six hours as needed for wheezing albuterol HFA (PROVENTIL HFA, VENTOLIN HFA) 90 mcg/actuation inhaler Inhale 2 Puffs as instructed every 6 hours as needed for wheezing/shortness of breath. 1 Each 0 05/25/2023 12/21/2023 Discontinued (Other) Comment on above: Inhale 2 Puffs as in structed every 6 hours as needed for wheezing/shortness of breath. ascorbic acid 500 mg chewable tablet (2 sources) Vitamin C Vitamin C Oral Tablet Chewable Quantity: 0 Refills: 0 Ordered: 04-May-2022 DO Active Collagen (2 sources) Collagen CAPS Quantity: 0 Refills: 0 Ordered: 04-May-2022 DO Active collagen/biotin/as corbic acid (COLLAGEN 1500 PLUS C ORAL) (17 sources) End: 10-26-2023 collagen/biotin/asc orbic acid (COLLAGEN 1500 PLUS C ORAL) Take by mouth. 0 10/26/2023 Discontinued (Course of therapy completed) collagen/biotin/ ascorbic acid (COLLAGEN 1500 PLUS C ORAL) Take by mouth. 0 Active Comment on above: Take by mouth. diphenhydrAMINE hydrochloride 25 mg oral capsule (6 sources) Histamine-1 Receptor Antagonist End: take 2 capsules by mouth once daily at bedtime diphenhydrAMINE (BENADRYL) 25 mg capsule Indications: insomnia Take 50 mg by mouth daily at bedtime. 03/05/2025 Discontinued docusate sodium 100 mg oral capsule (1 source) Start: End: take 2 capsules by mouth twice daily as needed for constipation Docusate Sodium 100 MG capsule Discontinued 200 mg PO TWICE A DAY as needed for Constipation 30 0 November 29, 2017 7:11am August 19, 2018 2:01pm ergocalciferol, vitamin D2, (VITAMIN D2 ORAL) (7 sources) End: ergocalciferol, vitamin D2, (VITAMIN D2 ORAL) Take by mouth. 0 12/21/2023 Discontinued ergocalciferol, vitamin D2, (VITAMIN D2 ORAL) Take by mouth. 0 Active Comment on above: Take by mouth. Ethinyl Estradiol / Levonorgestrel (20 sources) Progestin, Estrogen, Progestin-containing Intrauterine Device Start: 06-02-20 End: 12-03-19 take 1 tablet by mouth once daily L-Norgest and E Estradiol-E Estrad (SEASONIQUE) 0.15 mg-30 mcg (84)/10 mcg (7) Indications: control counseling Take 1 tablet by mouth once daily. 84 tablet 3 06/02/2024 12/02/2024 Discontinued (Other) Start: 06-02-2024 take 1 tablet by yvan th once daily L-Norgest and E Estradiol-E Estrad (SEASONIQUE) 0.15 mg-30 mcg (84)/10 mcg (7) Indications: control counseling Take 1 tablet by mouth once daily. 84 tablet 3 06/02/2024 Active Norgestimate-Ethinyl Estradiol (1 source) Progestin, Estrogen Start: 05-19-2020 End: 07-19-2020 Norgestimate-Ethinyl Estradiol (Sprintec (28)) 0.25-35 mg-mcg tablet Discontinued 1 {tbl} PO daily 28 May 19, 2020 12:00am July 19, 2020 12:26pm ferrous sulfate 325 mg oral tablet (20 sources) Start: 11-30-2017 End: 08-19-2018 take 1 tablet by mouth twice daily at mealtime Ferrous Sulfate 325 MG tablet Discontinued 325 mg PO TWICE DAILY WITH MEALS 60 0 November 30, 2017 12:00am August 19, 2018 2:01pm anemia ferrous sulfate (IRON ORAL) Take by mouth. Active ferrous sulfate (IRON ORAL) Take by mouth. 0 Active Comment on above: Take by mouth. hydrOXYzine (20 sources) Antihistamine End: 10-26-2023 HYDROXYZINE HCL ORAL Take by mouth. PRN for anxiety 0 10/26/2023 Discontinued (Course of therapy completed) HYDROXYZINE HCL ORAL Take by mouth. PRN for anxiety 0 Active Comment on above: Take by mouth. PRN f or anxiety ibuprofen 600 mg oral tablet (20 sources) Nonsteroidal Anti-inflammatory Drug Start: 4 End: 5 take 1 tablet by mouth every six hours as needed for pain ibuprofen (MOTRIN) 600 mg tablet Indications: Early loss Take 1 tablet by mouth every 6 hours as needed for pain or fever (specify temp.). 30 tablet 05/30/2024 12/02/2024 Discontinued (Other) L. acidophilus-L. rhamnosus 15 billion cell cap (5 sources) Start: 0 take 1 capsule by mouth once daily L. acidophilus-L. rhamnosus 15 billion cell cap Indications: Acute vaginitis Take 1 capsule by mouth once daily. FLORAJEN WOMEN. If on antibiotic, take at least 1-2 hours before or after antibiotic. KEEP REFRIGERATED 30 capsule 11 08/13/2020 Active Comment on above: Take 1 capsule by mo uth once daily. FLORAJEN WOMEN. If on antibiotic, take at least 1-2 hours before or after antibiotic. KEEP REFRIGERATED letrozole 2.5 mg oral tablet (11 sources) Aromatase Inhibitor Start: 3 End: 4 letrozole (FEMARA) 2.5 mg tablet Take 2 tablets by mouth as directed for 5 days. Start on cycle day 3 (where cycle day 1 is the first day of full flow). Continue until day 7 10 tablet 4 05/02/2023 12/21/2023 Discontinued (Other) Comment on above: Take 2 tablets by mo uth as directed for 5 days. Start on cycle day 3 (where cycle day 1 is the first day of full flow). Continue until day 7 Melatonin (2 sources) Melatonin TABS Quantity: 0 Refills: 0 Ordered: 04-May-2022 DO Active naproxen 500 mg oral tablet (2 sources) Nonsteroidal Anti-inflammatory Drug Start: 0 End: 0 take 1 tablet by mouth every twelve hours at mealtime Naproxen 500 mg tablet Discontinued 500 mg PO Q12H 30 2 May 19, 2020 12:00am July 19, 2020 12:26pm administer with food or milk Start: 11-29-2017 End: 05-11-2020 take 250-500 mg by mouth three times daily as needed for pain Naproxen 250 MG tablet Discontinued 250 - 500 mg PO THREE TIMES A DAY as needed for Mild-Mod Pain (1-/10) November 29, 2017 7:10am May 11, 2020 2:04pm predniSONE 20 mg oral tablet (5 sources) Start: 05-25-2023 End: 10-26-2023 take 2 tablets by mouth once daily predniSONE (DELTASONE) 20 mg tablet Take 2 tablets by mouth once daily. 8 tablet 0 05/25/2023 10/26/2023 Discontinued (Course of therapy completed) Comment on above: Take 2 tablets by mo uth once daily. [id number] eller 1 EACH capsule (1 source) Start: 07-31-2017 End: 08-19-2018 take 1 capsule by mouth once daily [id number] [id number] 1 EACH capsule Discontinued 1 NMA PO DAILY July 31, 2017 1:00am August 19, 2018 2:02pm Vitamins TABS (2 sources) Vitamin s TABS Quantity: 0 Refills: 0 Ordered: 04-May-2022 DO Active progesterone 200 mg oral capsule (15 sources) Progesterone Start: 12-17-2024 End: 01-13-2025 progesterone micronized (PROMETRIUM) 200 mg capsule Indications: History of recurrent , currently in first trimester ([facility]) Use 1 capsule vaginally two times a day. 60 capsule 1 12/17/2024 01/13/2025 Discontinued Start: 11-13-2024 End: 12-17-2024 progesterone micronized (PRO METRIUM) 200 mg capsule Use 2 capsules vaginally two times a day. 120 capsule 11/13/2024 12/17/2024 Discontinued Start: 12-06-2023 End: 12-21-2023 progesterone micronized (PRO METRIUM) 200 mg capsule Use 1 Suppository vaginally daily at bedtime. 0 12/06/2023 12/21/2023 Discontinued (Other) Comment on above: Use 1 Suppository va ginally daily at bedtime. progesterone vaginal suppository 200 mg (CPD) (9 sources) Start: 12-06-2023 End: 12-21-2023 progesterone vaginal suppository 200 mg (CPD) Use 1 Suppository vaginally daily at bedtime. Unwrap and insert as directed. 30 Suppository 0 12/06/2023 12/21/2023 Discontinued (Other) Start: 11-08-2023 End: 12-08-2023 progesterone vaginal supposi tory 200 mg (CPD) Use 1 Suppository vaginally daily at bedtime. Unwrap and insert as directed. 30 Suppository 0 11/08/2023 12/08/2023 Active Start: 10-10-2023 End: 11-07-2023 progesterone vaginal supposi tory 200 mg (CPD) Use 1 Suppository vaginally daily at bedtime. Unwrap and insert as directed. 30 Suppository 0 10/10/2023 11/07/2023 Discontinued Start: 10-10-2023 End: 11-09-2023 progesterone vaginal supposi tory 200 mg (CPD) Use 1 Suppository vaginally daily at bedtime. Unwrap and insert as directed. 30 Suppository 0 10/10/2023 11/09/2023 Active Comment on above: Use 1 Suppository va ginally daily at bedtime. Unwrap and insert as directed. Sertraline (20 sources) Serotonin Reuptake Inhibitor End: 12-02-2024 take 0.5 tablet by mouth once daily sertraline HCl (ZOLOFT ORAL) Take 100 mg by mouth once daily. Pt is taking 1 and 1/2 tablets daily 12/02/2024 Discontinued (Other) take 0.5 tablet by mouth once da guillermina sertraline HCl (ZOLOFT ORAL) Take 100 mg by mouth once daily. Pt is taking 1 and 1/2 tablets daily Active take 0.5 tablet by mouth once da guillermina sertraline HCl (ZOLOFT ORAL) Take 100 mg by mouth once daily. Pt is taking 1 and 1/2 tablets daily 0 Active take 0.5 tablet by mouth once da guillermina sertraline HCl (ZOLOFT ORAL) Take 50 mg by mouth once daily. Pt is taking 1 and 1/2 tablets daily 0 Active Comment on above: Take 50 mg by mouth once daily. Pt is taking 1 and 1/2 tablets daily Problems Active Problems Problem Classification Problem Date Documented Da te Episodic/Chronic Abdominal pain (1 source) Pain in pelvis; Translations: [Pelvic and perineal pain] 09-12-2021 Episodic Acute bronchitis (1 source) Viral bronchitis; Translations: [Acute bronchitis due to other specified organisms] 05-25-2023 Episodic Anxiety disorders (20 sources) Mixed anxiety and depressive disorder; Translations: [Anxiety disorder, unspecified] Onset: 10-02-2022 10-26-2023 Chronic Contraceptive and procreative management (14 sources) Patient encounter status; Translations: [Fertility testing] Episodic Deficiency and other anemia (1 source) Iron deficiency anemia secondary to blood loss (chronic); Translations: [Iron deficiency anemia secondary to blood loss (chronic)] Onset: 07-31-2024 Chronic Deficiency and other anemia (1 source) Anemia; Translations: [Anemia, unspecified] 03-18-2025 Episodic Disorders of lipid metabolism (1 source) Hyperlipidemia, unspecified; Translations: [Hyperlipidemia, unspecified] Onset: 07-31-2024 Chronic Ectopic (2 sources) Tubal ; Translations: [Tubal without intrauterine ] Episodic Comment on above: 09/07/21; Esophageal disorders (2 sources) Gastro-esophageal reflux disease without esophagitis; Translations: [Gastro-esophageal reflux disease without esophagitis] Onset: 09-11-2023 Chronic Female infertility (1 source) Female infertility; Translations: [Female infertility, unspecified] 05-02-2023 Chronic Hemorrhage during ; abruptio placenta; placenta previa (3 sources) Threatened miscarriage; Translations: [Threatened ] Episodic Menstrual disorders (2 sources) Menorrhagia; Translations: [Excessive and frequent menstruation with regular cycle] 05-11-2020 Chronic Comment on above: US pending. Nutritional deficiencies (2 sources) Vitamin D deficiency, unspecified; Translations: [Vitamin D deficiency, unspecified] Onset: 09-11-2023 Chronic Other complications of ; puerperium affecting management of mother (2 sources) Deliveries by ; Translations: [ delivery, without mention of indication, unspecified as to episode of care or not applicable] Episodic Comment on above: 06/30/11 41 WEEKS MA LE 9LBS 10OZ02/02/15 39 WEEKS MALE 10LBS 3OZ11/29/17 39 WEEKS FEMALE 8LBS 16OZ; Other complications of ; puerperium affecting management of mother (2 sources) Suspected disorder; Translations: [Maternal care for (suspected) abnormality and damage, unspecified, not applicable or unspecified] 01-23-2024 Episodic Other complications of ; puerperium affecting management of mother (2 sources) Disorder of structure; Translations: [Maternal care for (suspected) abnormality and damage, unspecified, not applicable or unspecified] 02-06-2024 Episodic Other complications of ; puerperium affecting management of mother (1 source) Maternal care for (suspected) abnormality and damage, unspecified, not applicable or unspecified; Translations: [Known anomaly, antepartum, single or unspecified fetus] Onset: 02-07-2024 Episodic Other complications of ; puerperium affecting management of mother (1 source) care status; Translations: [Maternal care for (suspected) 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, trisomy 13, fetus 1] 02-24-2024 Episodic Other complications of (20 sources) Maternal obesity complicating , childbirth and the puerperium, antepartum; Translations: [Obesity complicating , first trimester] Onset: 10-26-2023 12-24-2024 Chronic Other complications of (1 source) Obesity complicating , first trimester; Translations: [Obesity affecting in first trimester, unspecified obesity type (HCC)] Onset: 12-24-2024 Chronic Other complications of (1 source) First trimester ; Translations: [Supervision of with history of ectopic , first trimester] Episodic Other complications of (1 source) Spotting per vagina in ; Translations: [Spotting complicating , first trimester] Episodic Other complications of (1 source) Missed miscarriage; Translations: [Missed ] Episodic Other complications of (2 sources) ultrasound scan abnormal; Translations: [Abnormal ultrasonic finding on screening of mother] 01-24-2024 Episodic Other complications of (1 source) Abnormal human chorionic gonadotropin; Translations: [Inappropriate change in quantitative human chorionic gonadotropin (hCG) in early ] 06-02-2024 Episodic Other complications of (4 sources) Uterine size for dates discrepancy; Translations: [Uterine size-date discrepancy, first trimester] Onset: 12-02-2024 12-02-2024 Episodic Other complications of (20 sources) Vomiting of , unspecified; Translations: [Unspecified vomiting of , unspecified as to episode of care or not applicable] Onset: 12-24-2024 12-24-2024 Episodic Other complications of (20 sources) Heartburn; Translations: [Other specified related conditions, first trimester] Onset: 12-24-2024 12-24-2024 Episodic Other complications of (20 sources) Diseases of the digestive system complicating , first trimester; Translations: [Other current conditions classifiable elsewhere of mother, antepartum condition or complication] Onset: 12-24-2024 12-24-2024 Episodic Other complications of (1 source) Supervision of high risk , unspecified, second trimester; Translations: [Supervision of high risk in second trimester (HCC)] Onset: 02-05-2025 Episodic Other complications of (1 source) Supervision of high risk , unspecified, first trimester; Translations: [Encounter for supervision of high risk in first trimester, antepartum (HCC)] Onset: 12-24-2024 Episodic Other complications of (2 sources) Supervision of with history of ectopic , unspecified trimester; Translations: [ with history of ectopic , antepartum (HCC)] Onset: 10-02-2022 Episodic Other complications of (1 source) Other specified related conditions, first trimester; Translations: [Heartburn during in first trimester (HCC)] Onset: 12-24-2024 Episodic Other endocrine disorders (2 sources) Polycystic ovary syndrome; Translations: [Polycystic ovarian syndrome] 02-24-2024 Chronic Other female genital disorders (1 source) Abnormal uterine bleeding; Translations: [Abnormal uterine and vaginal bleeding, unspecified] 05-02-2023 Chronic Other female genital disorders (1 source) Abnormal uterine and vaginal bleeding, unspecified; Translations: [Abnormal uterine and vaginal bleeding, unspecified] Onset: 09-11-2023 Chronic Other gastrointestinal disorders (1 source) Heartburn; Translations: [Heartburn during in first trimester (HCC)] Onset: 12-24-2024 Episodic Other non-traumatic joint disorders (2 sources) Joint pain; Translations: [Pain in unspecified joint] 08-18-2024 Episodic Other nutritional; endocrine; and metabolic disorders (1 source) Obesity, unspecified; Translations: [Obesity, unspecified] Onset: 07-31-2024 Chronic Other nutritional; endocrine; and metabolic disorders (1 source) Body mass index (BMI) 33.0-33.9, adult; Translations: [Body mass index [BMI] 33.0-33.9, adult] Onset: 07-31-2024 Chronic Other and delivery including normal (15 sources) Early stage of ; Translations: [Encounter for supervision of normal , unspecified, unspecified trimester] Onset: 11-15-2024 Episodic Other screening for suspected conditions (not mental disorders or infectious disease) (4 sources) Cancer cervix screening status; Translations: [Encounter for screening for malignant neoplasm of cervix] Onset: 05-20-2024 12-24-2024 Episodic Other skin disorders (1 source) Loss of hair; Translations: [Nonscarring hair loss, unspecified] 08-18-2024 Episodic Other skin disorders (1 source) Nonscarring hair loss, unspecified; Translations: [Hair loss] Onset: 08-18-2024 Episodic Other upper respiratory infections (4 sources) Sore throat symptom; Translations: [Acute pharyngitis, unspecified] Onset: 12-19-2023 05-25-2023 Episodic Previous (1 source) Maternal care for unspecified type scar from previous delivery; Translations: [History of delivery affecting (HCC)] Onset: 12-24-2024 Episodic Residual codes; unclassified (5 sources) H/O: miscarriage; Translations: [Personal history of other genital system and obstetric disorders] 05-02-2023 Episodic Comment on above: 2009; Residual codes; unclassified (1 source) Gestation period, 7 weeks; Translations: [Less than 8 weeks gestation of ] Episodic Residual codes; unclassified (1 source) Gestation period, 14 weeks; Translations: [14 weeks gestation of ] 12-21-2023 Episodic Residual codes; unclassified (2 sources) Gestation period, 19 weeks; Translations: [19 weeks gestation of ] 01-23-2024 Episodic Residual codes; unclassified (2 sources) Postoperative state; Translations: [Other specified postprocedural states] 02-06-2024 Episodic Residual codes; unclassified (2 sources) History of uterine scar from previous surgery; Translations: [History of delivery] Onset: 02-07-2024 Episodic Residual codes; unclassified (1 source) Tobacco use; Translations: [Tobacco use] Onset: 07-31-2024 Episodic Residual codes; unclassified (20 sources) Family history of trisomy 13; Translations: [Family history of other congenital malformations, deformations and chromosomal abnormalities] Onset: 12-24-2024 12-24-2024 Episodic Residual codes; unclassified (20 sources) History of headache; Translations: [Personal history of other specified conditions] Onset: 12-24-2024 12-24-2024 Episodic Residual codes; unclassified (1 source) Gestation period, 12 weeks; Translations: [12 weeks gestation of ] 01-13-2025 Episodic Residual codes; unclassified (3 sources) Gestation period, 16 weeks; Translations: [16 weeks gestation of ] 02-05-2025 Episodic Residual codes; unclassified (2 sources) Gestation period, 20 weeks; Translations: [20 weeks gestation of ] 03-05-2025 Episodic Residual codes; unclassified (1 source) 20 weeks gestation of ; Translations: [20 weeks gestation of (HCC)] Onset: 03-05-2025 Episodic Residual codes; unclassified (1 source) Family history of other congenital malformations, deformations and chromosomal abnormalities; Translations: [Family history of trisomy 13] Onset: 12-24-2024 Episodic Residual codes; unclassified (1 source) 16 weeks gestation of ; Translations: [16 weeks gestation of (HCC)] Onset: 02-05-2025 Episodic Residual codes; unclassified (1 source) 12 weeks gestation of ; Translations: [12 weeks gestation of ([facility])] Onset: 01-13-2025 Episodic Residual codes; unclassified (3 sources) Personal history of other complications of , childbirth and the puerperium; Translations: [History of delivery of macrosomal infant] Onset: 12-24-2024 Episodic Residual codes; unclassified (1 source) Personal history of other specified conditions; Translations: [History of headache] Onset: 12-24-2024 Episodic Residual codes; unclassified (1 source) Failed encounter; Translations: [No-show for appointment] 03-11-2025 Episodic Residual codes; unclassified (1 source) Gestation period, 22 weeks; Translations: [22 weeks gestation of ] 03-19-2025 Episodic Screening and history of mental health and substance abuse codes (20 sources) H/O: depression; Translations: [Personal history of other mental and behavioral disorders] Onset: 10-02-2022 Episodic Spontaneous (2 sources) Miscarriage; Translations: [Complete or unspecified spontaneous without complication] Episodic Thyroid disorders (20 sources) Jose thyroiditis; Translations: [Autoimmune thyroiditis] Onset: 12-24-2024 12-24-2024 Chronic Thyroid disorders (1 source) Disorder of thyroid gland; Translations: [Disorder of thyroid, unspecified] 03-18-2025 Episodic Unclassified (1 source) NO SHOW Unclassified (20 sources) [facility] Education - COMMON Onset: 10-26-2023 10-26-2023 Unclassified (20 sources) Education - [place] Onset: 10-26-2023 10-26-2023 Unclassified (1 source) Fetus with trisomy 13, single gestation; Translations: [Fetus with trisomy 13, single gestation] Onset: 02-07-2024 Unclassified (1 source) No-show for appointment; Translations: [No-show for appointment] Onset: 02-13-2025 Unclassified (1 source) APPOINTMENT CANCELLED 03-18-2025 Urinary tract infections (1 source) Urinary tract infectious disease; Translations: [Urinary tract infection, site not specified] 03-19-2025 Episodic Past or Other Problems Problem Classification Problem Date Documented Date Episodic/Chronic Immunizations and screening for infectious disease (20 sources) Autoantibody titer positive; Translations: [Other specified abnormal immunological findings in serum] Onset: 06-29-2024 06-29-2024 Episodic Other complications of ; puerperium affecting management of mother (20 sources) Fetus with chromosomal abnormality; Translations: [Fetus with trisomy 13, single gestation] Onset: 02-08-2024 Resolved: 06-19-2024 02-06-2024 Episodic Other complications of (20 sources) Obesity; Translations: [Obesity complicating , unspecified trimester] Onset: 10-26-2023 Resolved: 06-19-2024 10-26-2023 Chronic Other complications of (20 sources) ; Translations: [ with inconclusive viability, not applicable or unspecified] Onset: 10-02-2022 Resolved: 06-19-2024 Episodic Other complications of (20 sources) History of delivery of macrosomal infant; Translations: [Supervision of with other poor reproductive or obstetric history, unspecified trimester] Onset: 10-02-2022 Resolved: 06-19-2024 Episodic Other complications of (20 sources) High risk ; Translations: [Supervision of high risk , unspecified, unspecified trimester] Onset: 10-26-2023 Resolved: 06-19-2024 Episodic Other complications of (20 sources) Asthma in ; Translations: [Diseases of the respiratory system complicating , first trimester] Onset: 10-31-2023 Resolved: 06-19-2024 10-31-2023 Episodic Other complications of (7 sources) with inconclusive viability, not applicable or unspecified; Translations: [ with inconclusive viability] Onset: 05-29-2024 05-29-2024 Episodic Other complications of (20 sources) Uncertain viability of ; Translations: [ with inconclusive viability, not applicable or unspecified] Onset: 12-02-2024 Resolved: 12-02-2024 12-02-2024 Episodic Other complications of (1 source) Inappropriate change in quantitative human chorionic gonadotropin (hCG) in early ; Translations: [Inappropriate change in quantitative hCG in early ] Onset: 06-13-2024 Episodic Other female genital disorders (20 sources) History of recurrent miscarriage - not ; Translations: [Recurrent loss] Onset: 06-19-2024 Resolved: 12-02-2024 06-19-2024 Episodic Other female genital disorders (20 sources) Recurrent miscarriage; Translations: [Recurrent loss] Onset: 12-02-2024 Resolved: 12-02-2024 07-01-2024 Episodic Other female genital disorders (3 sources) Recurrent loss; Translations: [Recurrent loss] Onset: 06-19-2024 Episodic Other lower respiratory disease (20 sources) H/O: asthma; Translations: [Personal history of other diseases of the respiratory system] Onset: 10-26-2023 10-26-2023 Episodic Other lower respiratory disease (1 source) Personal history of other diseases of the respiratory system; Translations: [History of asthma] Onset: 10-26-2023 Episodic Other non-traumatic joint disorders (2 sources) Pain in unspecified joint; Translations: [Arthralgia, unspecified joint] Onset: 08-18-2024 Episodic Polyhydramnios and other problems of amniotic cavity (20 sources) Subchorionic hematoma; Translations: [Other specified disorders of amniotic fluid and membranes, first trimester, not applicable or unspecified] Onset: 12-02-2024 Resolved: 03-05-2025 12-02-2024 Episodic Residual codes; unclassified (20 sources) H/O: ectopic ; Translations: [Personal history of other complications of , childbirth and the puerperium] Onset: 10-02-2022 Resolved: 06-19-2024 Episodic Residual codes; unclassified (20 sources) FH: Muscular dystrophy; Translations: [Family history of epilepsy and other diseases of the nervous system] Onset: 10-02-2022 Episodic Residual codes; unclassified (1 source) Family history of epilepsy and other diseases of the nervous system; Translations: [Family history of muscular dystrophy] Onset: 10-31-2023 Episodic Residual codes; unclassified (1 source) Other specified postprocedural states; Translations: [History of reversal of tubal ligation] Onset: 10-02-2022 Episodic Unclassified (2 sources) Finding of menstrual bleeding; Translations: [Menstruation] Comment on above: AGE 12; Results Test Name Value Interpretation Reference Range Facil emerson Villanueva 03-06-2025 DARLINE Telephone ([facility]) ---- LUCIE DENT ([id number]) 1990 F Date Time Provider Department 03/06/25 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 - mirtazapine (REMERON) 30 mg tablet Take 1 tablet by mouth daily at bedtime. - ondansetron orally disintegrating (ZOFRAN ODT) 4 mg disintegrating tablet Take 1 tablet by mouth every 8 hours as needed for nausea/vomiting. - polyethylene glycol 3350 (MIRALAX) 17 gram packet Take 1 packet by mouth once daily. Dissolve dose in 4 - 8 ounces of liquid and take as directed. - aspirin, enteric coated (ECOTRIN LOW STRENGTH) 81 mg EC tablet Take 1 tablet by mouth once daily. - famotidine (PEPCID) 20 mg tablet Take 1 tablet by mouth two times a day. - Cholecalciferol, Vitamin D3, 50 mcg (2,000 unit) cap - ferrous sulfate (IRON ORAL) Take by mouth. - acetaminophen (TYLENOL EXTRA STRENGTH) 500 mg tablet Take 2 tablets by mouth every 8 hours as needed for pain. - PNV/iron/omega3/fol ic acid/min (PRENAT [id number]-OM3-M INAA ORAL) Take by mouth. Problem List As Of Date 03/06/2025 Noted Resolved with history of section, ant*10/02/2022 06/19/2024 History of reversal of tubal ligation [Z98.890] 10/02/2022 with history of ectopic , an*10/02/2022 History of delivery of macrosomal infant [Z87.5*10/02/2022 Family history of muscular dystrophy [Z82.0] 10/02/2022 Anxiety and depression [F41.9, F32.A] 10/02/2022 Supervision of other high risk pregnancies, fir*10/26/2023 06/19/2024 Obesity affecting in first trimester *10/26/2023 History of asthma [Z87.09] 10/26/2023 Asthma affecting in first trimester [*10/31/2023 06/19/2024 Fetus with trisomy 13, single gestation [O35.11*02/08/2024 06/19/2024 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*06/19/2024 12/02/2024 Thyroid antibody positive [R76.8] 06/29/2024 with uncertain viability [O36.8*12/02/2024 12/02/2024 Confirm viability, history of recurrent m*12/02/2024 12/02/2024 Subchorionic hematoma in first trimester (HCC) *12/02/2024 03/05/2025 PTSD (post-traumatic stress disorder) [F43.10] 12/24/2024 History of headache [Z87.898] 12/24/2024 Heartburn during in first trimester (*12/24/2024 Encounter for supervision of high risk pregnanc*12/24/2024 History of delivery [Z98.891] 12/24/2024 Family history of trisomy 13 [Z82.79] 12/24/2024 History of depression [Z87.59, Z86.5*12/24/2024 Nausea and vomiting during (HCC) [O21*12/24/2024 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 History of Trisomy 13, Maternal obesity, BMI >30 Impression REMOTE READ The patient is referred for a detailed anatomic survey. - Single, live, intrauterine . - biometry is consistent with the established gestational age. - No malformations were visualized on a complete detailed anatomic survey. - The amniotic fluid volume is normal amount. - The placenta is anterior, fundal. - The Transabdominal cervical length measures 43 mm with no evidence of funneling or other dynamic changes. - Not all structural malformations can be detected by ultrasound examination. Recommendations Additional follow-up as clinically indicated. Maternal Assessment Height 170 cm Height (ft) 5 ft Height (in) 7 in Physical Exam Initial weight (lb) 223 lb Initial BMI 34.93 kg/m Method Transabdominal ultrasound examination. View: Adequate visualization Number of fetuses: 1 Dating LMP on: 10/06/2024 GA by LMP 21 w + 3 d SANDIE by LMP: 07/13/2025 GA by prior assessment 20 w + 0 d SANDIE by prior assessment: 07/23/2025 Ultrasound examination on: 03/05/2025 GA by U/S based upon: AC, BPD, Femur, HC GA by U/S 20 w + 6 d SANDIE by U/S: 07/17/2025 Assigned: based on stated SANDIE, selected on 01/13/2025 Assigned GA 20 w + 0 d Assigned SANDIE: 07/23/2025 General Evaluation Cardiac activity present. FHR 148 bpm. movements: present. Presentation: oblique, breech Placenta: Placental site: anterior, fundal Umbilical cord: Cord vessels: 3 vessel cord. Insertion site: normal insertion Amniotic fluid: Amount of AF: normal amount. MVP 3.6 cm Growth Overview Exam date GA BPD (mm) HC (mm) AC (mm) FL (mm) HL (mm) EFW (g) 02/05/2025 16w 0d 32.6 54% 127.9 55% 113.8 86% 20.9 64% 22.3 83% 164 82% 03/05/2025 20w 0d 47 59% 175.7 52% 165.5 89% 35.4 93% 34.4 96% 405 95% Biometry Standard BPD 47.0 mm 20w 1d 59% Hadlock OFD 62.8 mm 20w 1d 79% Nicolaides HC 175.7 mm 20w 0d 52% Micheal Cerebellum tr 20.2 mm 19w 3d 55% Hill Nuchal fold 3.5 mm AC 165.5 mm 21w 4d 89% Hadlock Femur 35.4 mm 21w 3d 93% Micheal Humerus 34.4 mm 21w 5d 96% Micheal EFW 405 g 21w 1d 95% Hadlock EFW (lb) 0 lb EFW (oz) 14 oz EFW by: Hadlock (HC-AC-FL) Extended Change Control Coordinator 6.7 mm CM 3.5 mm 9% Nicolaides Nasal bone 7.4 mm Extremities / Bony Struc FL / HC 0.20 92% Hadlock Other Structures FHR 148 bpm Anatomy Cranium: normal Lateral ventricles: normal Choroid plexus: normal Midline falx: normal Cavum septi pellucidi: normal Cerebellum: normal Cisterna magna: normal Head / Neck Vermis: normal Neck: normal Nuchal fold: normal Lips: normal Profile: normal Nose: normal Face Maxilla: normal Mandible: normal Orbits: normal Lens: normal 4-chamber view: normal RVOT view: normal LVOT view: normal 3-vessel view: normal [id number] view: normal Heart / Thorax Situs: situs solitus (normal) Aortic arch view: normal SVC: normal IVC: normal Cardiac axis: normal Rt lung: normal Lt lung: normal Diaphragm: normal Cord insertion: normal Stomach: normal Kidneys: normal Bladder: normal Genitals: normal Abdomen Abdom. wall: normal Cervical spine: normal Thoracic spine: normal Lumbar spine: normal Sacral spine: normal Arms: normal Legs: normal Rt upper arm: normal Rt forearm: normal Rt hand: normal Rt fingers: normal Lt upper arm: normal Lt forearm: normal Lt hand: normal Lt fingers: normal Rt upper leg: normal Rt lower leg: normal Rt foot: normal Lt upper leg: normal Lt lower leg: normal Lt foot: normal sex: female Wants to know sex: yes Maternal Structures Uterus / Cervix Uterus: Visualized Cervix: Visualized Approach: Transabdominal Cervical length 43.0 mm Other: Patient declined transvaginal ultrasound for cervical length. Ovaries / Tubes / Adnexa Rt ovary: Suboptimal Lt ovary: Normal Performed By: Brittaney Pompa RDMS Read By: Selena Demarco M.D. MATERNAL MEDICINE [facility] [place] Radiology Study observation (narrative) Yolanda mata [facility] Rich 02-19-2025 DARLINE Telephone (PSYRMN) ---- LUCIE DENT ([id number]) 1990 F Date Time Provider Department 02/19/25 LAURA ROMANO PSYRMN During your visit today, we recorded the following information about you: Laura Romano CHINMAY 02/19/2025 12:38 PM Signed Review of referral with patient. Was patient aware of [facility] referral placement by provider?Yes Is the patient currently connected for care : No If not connected to Care are they agreeable to referral?Yes If agreeable to referral, are they:External Comment: Pt Choice/Need Assisted in making appt at: [facility] ual Appointment date and time: TBD Current priority status of the referral Medium Additional information: Pt is currently established with [facility] Psychiatry, was seen by [facility] for assessment and referred to virtual IOP with [email or web address]. Pt unable to commit to time requirement for [facility]. SW contacted Pt to assist with connecting to community-based provider-Pt accepted referral to [facility]-referral placed and [facility] will contact Pt to schedule. Allergies As of Date: 02/19/2025 Noted Allergy Reaction SULFA (SULFONAMIDE ANTIBIOTICS) 07/21/2020 4 - Hives 12 - Shortness of Breath Date Reviewed: 02/05/2025 Reviewed by: Jake Gregory MA - Fully Assessed Reason for Visit: Crystal Slicer - Other [3604] Cmt: Integrated Mental Health Plan of Care Prescriptions as of 02/19/2025 - mirtazapine (REMERON) 30 mg tablet Take 1 tablet by mouth daily at bedtime. - LORazepam (ATIVAN) 0.5 mg Take 1 tablet by mouth once daily as needed (panic) for up to 14 days. - diphenhydrAMINE (BENADRYL) 25 mg capsule Take 50 mg by mouth daily at bedtime. - ondansetron orally disintegrating (ZOFRAN ODT) 4 mg disintegrating tablet Take 1 tablet by mouth every 8 hours as needed for nausea/vomiting. - polyethylene glycol 3350 (MIRALAX) 17 gram packet Take 1 packet by mouth once daily. Dissolve dose in 4 - 8 ounces of liquid and take as directed. - aspirin, enteric coated (ECOTRIN LOW STRENGTH) 81 mg EC tablet Take 1 tablet by mouth once daily. - famotidine (PEPCID) 20 mg tablet Take 1 tablet by mouth two times a day. - Cholecalciferol, Vitamin D3, 50 mcg (2,000 unit) cap - ferrous sulfate (IRON ORAL) Take by mouth. - acetaminophen (TYLENOL EXTRA STRENGTH) 500 mg tablet Take 2 tablets by mouth every 8 hours as needed for pain. - PNV/iron/omega3/fol ic acid/min (PRENAT [id number]-[id number]-FA-OM3-M INAA ORAL) Take by mouth. Problem List As Of Date 02/19/2025 Noted Resolved with history of section, ant*10/02/2022 06/19/2024 History of reversal of tubal ligation [Z98.890] 10/02/2022 with history of ectopic , an*10/02/2022 History of delivery of macrosomal [Z87.5*10/02/2022 Family history of muscular dystrophy [Z82.0] 10/02/2022 Anxiety and depression [F41.9, F32.A] 10/02/2022 Supervision of other high risk pregnancies, fir*10/26/2023 06/19/2024 Obesity affecting in first trimester *10/26/2023 History of asthma [Z87.09] 10/26/2023 Asthma affecting in first trimester [*10/31/2023 06/19/2024 Fetus with trisomy 13, single gestation [O35.11*02/08/2024 06/19/2024 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*06/19/2024 12/02/2024 Thyroid antibody positive [R76.8] 06/29/2024 with uncertain viability [O36.8*12/02/2024 12/02/2024 Confirm viability, history of recurrent m*12/02/2024 12/02/2024 Subchorionic hematoma in first trimester [O41.8*12/02/2024 PTSD (post-traumatic stress disorder) [F43.10] 12/24/2024 History of headache [Z87.898] 12/24/2024 Heartburn during in first trimester (*12/24/2024 Encounter for supervision of high risk pregnanc*12/24/2024 History of delivery [Z98.891] 12/24/2024 Family history of trisomy 13 [Z82.79] 12/24/2024 History of depression [Z87.59, Z86.5*12/24/2024 Nausea and vomiting during (HCC) [O21*12/24/2024 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 Patient did not answer, left message. WB SW can be reached at: [place]: [phone] [place]:[phone] Allergies As of Date: 02/17/2025 Noted Allergy Reaction SULFA (SULFONAMIDE ANTIBIOTICS) 07/21/2020 4 - Hives 12 - Shortness of Breath Date Reviewed: 02/05/2025 Reviewed by: Jake Gregory MA - Fully Assessed Reason for Visit: Crystal Slicer - Other [[id number]] Cmt: WB referral follow up Prescriptions as of 02/17/2025 - mirtazapine (REMERON) 30 mg tablet Take 1 tablet by mouth daily at bedtime. - LORazepam (ATIVAN) 0.5 mg Take 1 tablet by mouth once daily as needed (panic) for up to 14 days. - diphenhydrAMINE (BENADRYL) 25 mg capsule Take 50 mg by mouth daily at bedtime. - ondansetron orally disintegrating (ZOFRAN ODT) 4 mg disintegrating tablet Take 1 tablet by mouth every 8 hours as needed for nausea/vomiting. - polyethylene glycol 3350 (MIRALAX) 17 gram packet Take 1 packet by mouth once daily. Dissolve dose in 4 - 8 ounces of liquid and take as directed. - aspirin, enteric coated (ECOTRIN LOW STRENGTH) 81 mg EC tablet Take 1 tablet by mouth once daily. - famotidine (PEPCID) 20 mg tablet Take 1 tablet by mouth two times a day. - Cholecalciferol, Vitamin D3, 50 mcg (2,000 unit) cap - ferrous sulfate (IRON ORAL) Take by mouth. - acetaminophen (TYLENOL EXTRA STRENGTH) 500 mg tablet Take 2 tablets by mouth every 8 hours as needed for pain. - PNV/iron/omega3/fol ic acid/min (PRENAT EM-[id number]-ZG-FA-OM3-M INAA ORAL) Take by mouth. Problem List As Of Date 02/17/2025 Noted Resolved with history of section, ant*10/02/2022 06/19/2024 History of reversal of tubal ligation [Z98.890] 10/02/2022 with history of ectopic , an*10/02/2022 History of delivery of macrosomal infant [Z87.5*10/02/2022 Family history of muscular dystrophy [Z82.0] 10/02/2022 Anxiety and depression [F41.9, F32.A] 10/02/2022 Supervision of other high risk pregnancies, fir*10/26/2023 06/19/2024 Obesity affecting in first trimester *10/26/2023 History of asthma [Z87.09] 10/26/2023 Asthma affecting in first trimester [*10/31/2023 06/19/2024 Fetus with trisomy 13, single gestation [O35.11*02/08/2024 06/19/2024 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*06/19/2024 12/02/2024 Thyroid antibody positive [R76.8] 06/29/2024 with uncertain viability [O36.8*12/02/2024 12/02/2024 Confirm viability, history of recurrent m*12/02/2024 12/02/2024 Subchorionic hematoma in first trimester [O41.8*12/02/2024 PTSD (post-traumatic stress disorder) [F43.10] 12/24/2024 History of headache [Z87.898] 12/24/2024 Heartburn during in first trimester (*12/24/2024 Encounter for supervision of high risk pregnanc*12/24/2024 History of delivery [Z98.891] 12/24/2024 Family history of trisomy 13 [Z82.79] 12/24/2024 History of depression [Z87.59, Z86.5*12/24/2024 Nausea and vomiting during (HCC) [O21*12/24/2024 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 [facility], [facility]- Referring Provider: DEYANIRA MOYER [[id number]] Allergies As of Date: 02/12/2025 Noted Allergy Reaction SULFA (SULFONAMIDE ANTIBIOTICS) 07/21/2020 4 - Hives 12 - Shortness of Breath Date Reviewed: 02/05/2025 Reviewed by: Jake Gregory MA - Fully Assessed Primary Visit Diagnosis:No-show for appointment [Z91.199] Prescriptions as of 02/12/2025 - mirtazapine (REMERON) 30 mg tablet Take 1 tablet by mouth daily at bedtime. - LORazepam (ATIVAN) 0.5 mg Take 1 tablet by mouth once daily as needed (panic) for up to 14 days. - diphenhydrAMINE (BENADRYL) 25 mg capsule Take 50 mg by mouth daily at bedtime. - ondansetron orally disintegrating (ZOFRAN ODT) 4 mg disintegrating tablet Take 1 tablet by mouth every 8 hours as needed for nausea/vomiting. - polyethylene glycol 3350 (MIRALAX) 17 gram packet Take 1 packet by mouth once daily. Dissolve dose in 4 - 8 ounces of liquid and take as directed. - aspirin, enteric coated (ECOTRIN LOW STRENGTH) 81 mg EC tablet Take 1 tablet by mouth once daily. - famotidine (PEPCID) 20 mg tablet Take 1 tablet by mouth two times a day. - Cholecalciferol, Vitamin D3, 50 mcg (2,000 unit) cap - ferrous sulfate (IRON ORAL) Take by mouth. - acetaminophen (TYLENOL EXTRA STRENGTH) 500 mg tablet Take 2 tablets by mouth every 8 hours as needed for pain. - PNV/iron/omega3/fol ic acid/min (PRENAT CL-KVGV-KV-FA-OM3-M INAA ORAL) Take by mouth. Problem List As Of Date 02/12/2025 Noted Resolved with history of section, ant*10/02/2022 06/19/2024 History of reversal of tubal ligation [Z98.890] 10/02/2022 with history of ectopic , an*10/02/2022 History of delivery of macrosomal [Z87.5*10/02/2022 Family history of muscular dystrophy [Z82.0] 10/02/2022 Anxiety and depression [F41.9, F32.A] 10/02/2022 Supervision of other high risk pregnancies, fir*10/26/2023 06/19/2024 Obesity affecting in first trimester *10/26/2023 History of asthma [Z87.09] 10/26/2023 Asthma affecting in first trimester [*10/31/2023 06/19/2024 Fetus with trisomy 13, single gestation [O35.11*02/08/2024 06/19/2024 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*06/19/2024 12/02/2024 Thyroid antibody positive [R76.8] 06/29/2024 with uncertain viability [O36.8*12/02/2024 12/02/2024 Confirm viability, history of recurrent m*12/02/2024 12/02/2024 Subchorionic hematoma in first trimester [O41.8*12/02/2024 PTSD (post-traumatic stress disorder) [F43.10] 12/24/2024 History of headache [Z87.898] 12/24/2024 Heartburn during in first trimester (*12/24/2024 Encounter for supervision of high risk pregnanc*12/24/2024 History of delivery [Z98.891] 12/24/2024 Family history of trisomy 13 [Z82.79] 12/24/2024 History of depression [Z87.59, Z86.5*12/24/2024 Nausea and vomiting during (HCC) [O21*12/24/2024 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 - Single, live, intrauterine . - biometry is consistent with the established gestational age. - No malformations were visualized on an early anatomic assessment, although some anatomical structures were suboptimally seen as detailed below. - The amniotic fluid volume is normal amount. - The placenta is anterior. - Not all structural malformations can be detected by ultrasound examination. Recommendations Return around 20 weeks for detailed anatomic survey Maternal Assessment Height 170 cm Height (ft) 5 ft Height (in) 7 in Physical Exam Initial weight (lb) 223 lb Initial BMI 34.93 kg/m Maternal assessment other: 9 Para 3 REMOTE READ Method Transabdominal ultrasound examination. View: Suboptimal view: limited by early gestational age Number of fetuses: 1 Dating LMP on: 10/06/2024 GA by LMP 17 w + 3 d SANDIE by LMP: 07/13/2025 GA by prior assessment 16 w + 0 d SANDIE by prior assessment: 07/23/2025 Ultrasound examination on: 02/05/2025 GA by U/S based upon: AC, BPD, Femur, HC GA by U/S 16 w + 3 d SANDIE by U/S: 07/20/2025 Assigned: based on stated SANDIE, selected on 01/13/2025 Assigned GA 16 w + 0 d Assigned SANDIE: 07/23/2025 General Evaluation Cardiac activity present. FHR 145 bpm. movements: present. Presentation: transverse head right Placenta: Placental site: anterior Umbilical cord: Cord vessels: 3 vessel cord Amniotic fluid: Amount of AF: normal amount. MVP 3.8 cm Biometry Standard BPD 32.6 mm 16w 1d 54% Hadlock OFD 46.5 mm 16w 1d 84% Nicolaides HC 127.9 mm 16w 1d 55% Micheal AC 113.8 mm 17w 1d 86% Hadlock Femur 20.9 mm 16w 2d 64% Micheal Humerus 22.3 mm 16w 6d 83% Micheal EFW 164 g 16w 4d 82% Hadlock EFW (lb) 0 lb EFW (oz) 6 oz EFW by: Hadlock (HC-AC-FL) Extended Change Control Coordinator 5.6 mm Extremities / Bony Struc FL / HC 0.16 37% Hadlock Other Structures FHR 145 bpm Anatomy Cranium: normal Lateral ventricles: normal Choroid plexus: normal Midline falx: normal Cerebellum: normal Cisterna magna: normal Lips: normal 4-chamber view: normal RVOT view: normal LVOT view: normal 3-vessel view: suboptimally visualized [id number] view: normal Heart / Thorax Diaphragm: normal Cord insertion: normal Stomach: normal Kidneys: normal Bladder: normal Cervical spine: normal Thoracic spine: normal Lumbar spine: normal Sacral spine: normal Arms: normal Legs: normal Rt upper arm: normal Rt forearm: normal Rt hand: normal Lt upper arm: normal Lt forearm: normal Lt hand: normal Rt upper leg: normal Rt lower leg: normal Rt foot: normal Lt upper leg: normal Lt lower leg: normal Lt foot: normal sex: female Wants to know sex: yes Maternal Structures Uterus / Cervix Uterus: Visualized Cervix: Visualized Approach: Transabdominal Cervical length 31.8 mm Ovaries / Tubes / Adnexa Rt ovary: Visualized Lt ovary: Visualized Performed By: Mildred Fink, MARQUIS, RVT Read By: Selena Demarco M.D. MATERNAL MEDICINE [facility] [place] Radiology Study observation (narrative) [facility] CNOVon 01-22-2025 CNOV Office Visit (ENWSTR) ---- LUCIE DENT ([id number]) 1990 F Date Time Provider Department 01/22/25 11:20 AM FRANK LYON ENWSTR During your visit today, we recorded the following information about you: Pulse Blood pressure Weight 78/minute 110/70 100.5 kg Frank Lyon MD 01/23/2025 12:09 AM Addendum [facility] Follow up note Consulted by: Suzi Franco DO Chief Complaint: elevated TPO antibodies HPI: This is a 34 year old female who presented initially for evaluation of elevated TPO antibodies, but now follow up is due to conception with abnormal thyroid labs She has 3 kids, underwent tubectomy, and then she had reversal of tubal ligation recently with attempts to getting In February 08, 2024 she had D and E at 22 weeks. She was again but ended in miscarriage. She would like to get before 38 years She has lupus antibody positive as well Reports symptoms of weight gain, cold sensitivity FH: cousin had to have thyroid removed, grand mother had lupus Interval history: 01/22/25 She is at 14 weeks. This is the 9th , with 3 live children No new symptoms seen. Reports she was advised to her OBGYN to follow up with Endocrinology PAST MEDICAL HISTORY: PAST MEDICAL HISTORY Diagnosis Date Anemia Anxiety Asthma (HCC) Depression Ectopic ([facility]) 2021 Fetus with trisomy 13, single gestation ([facility]) 02/08/2024 Jose's thyroiditis Hidradenitis suppurativa History of delivery of macrosomal infant 10/02/2022 Hgb A1C at NOB. Yuliya Jackson APRN.CNM 10/02/2022 Patient's first child weighed 9 pounds 1 ounce at and second child 10 pounds 3 ounces at .TKRN History of depression History of reversal of tubal ligation 10/02/2022 10/02/2022 Patient had a tubal reversal by Dr. Ayala June 2021. TKRN PCOS (polycystic ovarian syndrome) 2019 depression Recurrent loss 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 06/19/2024 PAST SURGICAL HISTORY: PAST SURGICAL HISTORY Procedure Laterality Date DELIVERY ONLY , low transverse DELIVERY ONLY , low transverse DELIVERY ONLY , low transverse HSG LIG/TRNSXJ FLP TUBE ABDL/VAG APPR UNI/BI 2018 Tubal ligation MANUAL VACUUM ASPIRATION 06/02/2024 SALPINGECTOMY 09/07/2021 RIGHT SIDE - ectopic at [facility] TONSILLECTOMY AND ADENOIDECTOMY HX UNL LAP TUBAL ANASTOMOSIS Bilateral FAMILY HISTORY: FAMILY HISTORY Problem Relation Age of Onset Fibromyalgia Mother other (Endometrosis) Mother other (Rheumatoid Arthritis) Mother Anxiety disorder Mother Depression Mother No Known Problems Father no relationship Asthma Sister Depression Brother Asthma Brother Hypertension Brother Asthma Maternal Grandmother Heart Maternal Grandmother Systemic Lupus Erythematosus Maternal Grandmother Diabetes Maternal Grandmother No Known Problems Maternal Grandfather No Known Problems Daughter No Known Problems Son No Known Problems Son other (trisomy 13) Son Anesthesia Problems No Family History SOCIAL HISTORY: Social History Tobacco Use Smoking status: Never Smokeless tobacco: Never Tobacco comments: Vape Vaping Use Vaping status: Former Start date: 11/27/2024 Substances: Nicotine (OCCASIONAL) Substance Use Topics Alcohol use: Not Currently Comment: Socially Drug use: Never MEDICATIONS: Current Outpatient Medications Medication Sig ondansetron orally disintegrating (ZOFRAN ODT) 4 mg disintegrating tablet Take 1 tablet by mouth every 8 hours as needed for nausea/vomiting. polyethylene glycol 3350 (MIRALAX) 17 gram packet Take 1 packet by mouth once daily. Dissolve dose in 4 - 8 ounces of liquid and take as directed. aspirin, enteric coated (ECOTRIN LOW STRENGTH) 81 mg EC tablet Take 1 tablet by mouth once daily. famotidine (PEPCID) 20 mg tablet Take 1 tablet by mouth two times a day. OTC NUTRITIONAL SUPPLEMENT Take by mouth once daily. Myoinstol Cholecalciferol, Vitamin D3, 50 mcg (2,000 unit) cap busPIRone (BUSPAR) 5 mg tablet Take 1 tablet by mouth three times a day. ferrous sulfate (IRON ORAL) Take by mouth. acetaminophen (TYLENOL EXTRA STRENGTH) 500 mg tablet Take 2 tablets by mouth every 8 hours as needed for pain. PNV/iron/omega3/fol ic acid/min (PRENAT HW-PWPG-WN-FA-OM3-M INAA ORAL) Take by mouth. No current facility-administer ed medications for this visit. ALLERGIES: ALLERGIES Allergen Reactions Sulfa (Sulfonamide * Hives, Shortness of Breath REVIEW OF SYSTEMS: 10 point ROS was reviewed and negative unless indicated in the HPI PHYSICAL EXAM: LMP 10/06/2024 There is no height or weight on file to calculate BMI. General Appearance: Well appearing, alert, in no acute distress, well-hydrate (more content not included)... Normal [facility] CNOVon 01-20-2025 CNOV Office Visit (PSYLMN) ---- LUCIE DENT ([id number]) 1990 F Date Time Provider Department 01/20/25 2:00 PM DEYANIRA MOYER PSYLMN During your visit today, we recorded the following information about you: Deyanira Moyer LISW 01/20/2025 2:42 PM Signed GENERAL PSYCHOLOGY Patient was seen for an initial evaluation. All information is from Patient report except when noted. This evaluation is NOT intended for forensic, disability or child custody purposes. Visit Type:The patient e-signed the Informed Consent for Psychological Evaluation AND Care Form, and the behavioral health care insurance benefits, fees for service, emergency procedures, and the limits of confidentiality that may pertain with any given case were discussed with the patient. The patient was given a copy of the consent form on [employer]. The patient consented to a virtual visit and their location was confirmed. Informed consent was discussed and signed by the patient. Visit performed via Virtual Visit Informed consent to deliver services discussed Patient aware of benefits of virtual visit services and is in agreement to participate Originating site for client [place] Originating site for provider [place] Site appropriate for privacy No equipment failures, provided psychotherapy I have communicated my name and active licensure. The patient's identity and physical location were verified at the time of this visit. Either the patient or their legal c s s representative has been informed of the risks and benefits of -- and alternatives to -- treatment through a remote evaluation and consents to proceed with the evaluation remotely. The patient e-signed the Informed Consent for Psychological Evaluation AND Care Form, and the behavioral health care insurance benefits, fees for service, emergency procedures, and the limits of confidentiality that may pertain with any given case were discussed with the patient. The patient was given a copy of the consent form on [employer]. The patient consented to a virtual visit and their location was confirmed. 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 PAST MEDICAL HISTORY Diagnosis Date Anemia Anxiety Asthma ([facility]) Depression Ectopic ([facility]) 2021 Fetus with trisomy 13, single gestation ([facility]) 02/08/2024 Jose's thyroiditis Hidradenitis suppurativa History of delivery of macrosomal infant 10/02/2022 Hgb A1C at NOB. Yuliya Jackson APRN.DERECKM 10/02/2022 Patient's first child weighed 9 pounds 1 ounce at and second child 10 pounds 3 ounces at .TKRN History of depression History of reversal of tubal ligation 10/02/2022 10/02/2022 Patient had a tubal reversal by Dr. Ayala June 2021. TKRN PCOS (polycystic ovarian syndrome) 2019 depression Recurrent loss 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 06/19/2024 PAST SURGICAL HISTORY Procedure Laterality Date DELIVERY ONLY , low transverse DELIVERY ONLY , low transverse DELIVERY ONLY , low transverse HSG LIG/TRNSXJ FLP TUBE ABDL/VAG APPR UNI/BI 2018 Tubal ligation MANUAL VACUUM ASPIRATION 06/02/2024 SALPINGECTOMY 09/07/2021 RIGHT SIDE - ectopic at [facility] TONSILLECTOMY AND ADENOIDECTOMY HX UNL LAP TUBAL ANASTOMOSIS Bilateral Current Outpatient Medications Medication Sig ondansetron orally disintegrating (ZOFRAN ODT) 4 mg disintegrating tablet Take 1 tablet by mouth every 8 hours as needed for nausea/vomiting. polyethylene glycol 3350 (MIRALAX) 17 gram packet Take 1 packet by mouth once daily. Dissolve dose in 4 - 8 ounces of liquid and take as directed. aspirin, enteric coated (ECOTRIN LOW STRENGTH) 81 mg EC tablet Take 1 tablet by mouth once daily. famotidine (PEPCID) 20 mg tablet Take 1 tablet by mouth two times a day. OTC NUTRITIONAL SUPPLEMENT Take by mouth once daily. Myoinstol Cholecalciferol, Vitamin D3, 50 mcg (2,000 unit) cap busPIRone (BUSPAR) 5 mg tablet Take 1 tablet by mouth three times a day. ferrous sulfate (IRON ORAL) Take by mouth. acetaminophen (TYLENOL EXTRA STRENGTH) 500 mg tablet Take 2 tablets by mouth every 8 hours as needed for pain. PNV/iron/omega3/fol ic acid/min (PRENAT [id number]-FA-OM3-M INAA ORAL) Take by mouth. No current facility-administer ed medications for this visit. ALLERGIES Allergen Reactions Sulfa (Sulfonamide * Hives, Shortness of Breath REFERRAL SOURCE: OB CHIEF COMPLAINT: I had lost a at 22 weeks a year ago and had some counseling. I am now again and my OB recommended. I was on Zoloft and I went off in August and now I a (more content not included)... Normal [facility] Rich 01-20-2025 DARLINE Telephone (PSYRMN) ---- LUCIE DENT ([id number]) 1990 F Date Time Provider Department 01/20/25 KATHYA ROUSSEAU PSYRMN During your visit today, we recorded the following information about you: Kathya Rousseau LISW 01/20/2025 3:28 PM Signed Integrated Mental Health Plan of Care Review of referral with patient. Was patient aware of [facility] referral placement by provider?Yes Is the patient currently connected for care : No If not connected to Care are they agreeable to referral?Yes If agreeable to referral, are they:Internal Comment: [facility] psychiatry Assisted in making appt at: [facility] psychiatry Appointment date and time: 01/29/25 @ 9am ([facility]) Current priority status of the referral Medium Additional information SW and patient discussed [facility] referral from [facility]. Patient agreeable to [facility] psychiatry appt for medication management. Patient noted hesitancy toward psychiatry appt for medication management due to past experiences with prescribers and Zoloft. Patient noted negative side effects from Zoloft, but was continued to prescribe Zoloft from different providers. Patient open to [facility] psychiatry appt, but requests not being prescribed Zoloft. SW to send message to [facility] psychiatry provider regarding patient preference. Appointment scheduled. Allergies As of Date: 01/20/2025 Noted Allergy Reaction SULFA (SULFONAMIDE ANTIBIOTICS) 07/21/2020 4 - Hives 12 - Shortness of Breath Date Reviewed: 01/13/2025 Reviewed by: Elenita Jorgensen MD - Fully Assessed Reason for Visit: Crystal Slicer - Other [[id number]] Prescriptions as of 01/20/2025 - ondansetron orally disintegrating (ZOFRAN ODT) 4 mg disintegrating tablet Take 1 tablet by mouth every 8 hours as needed for nausea/vomiting. - polyethylene glycol 3350 (MIRALAX) 17 gram packet Take 1 packet by mouth once daily. Dissolve dose in 4 - 8 ounces of liquid and take as directed. - aspirin, enteric coated (ECOTRIN LOW STRENGTH) 81 mg EC tablet Take 1 tablet by mouth once daily. - famotidine (PEPCID) 20 mg tablet Take 1 tablet by mouth two times a day. - OTC NUTRITIONAL SUPPLEMENT Take by mouth once daily. Myoinstol - Cholecalciferol, Vitamin D3, 50 mcg (2,000 unit) cap - busPIRone (BUSPAR) 5 mg tablet Take 1 tablet by mouth three times a day. - ferrous sulfate (IRON ORAL) Take by mouth. - acetaminophen (TYLENOL EXTRA STRENGTH) 500 mg tablet Take 2 tablets by mouth every 8 hours as needed for pain. - PNV/iron/omega3/fol ic acid/min (PRENAT SL-PFQF-RO-FA-OM3-M INAA ORAL) Take by mouth. Problem List As Of Date 01/20/2025 Noted Resolved with history of section, ant*10/02/2022 06/19/2024 History of reversal of tubal ligation [Z98.890] 10/02/2022 with history of ectopic , an*10/02/2022 History of delivery of macrosomal infant [Z87.5*10/02/2022 Family history of muscular dystrophy [Z82.0] 10/02/2022 Anxiety and depression [F41.9, F32.A] 10/02/2022 Supervision of other high risk pregnancies, fir*10/26/2023 06/19/2024 Obesity affecting in first trimester *10/26/2023 History of asthma [Z87.09] 10/26/2023 Asthma affecting in first trimester [*10/31/2023 06/19/2024 Fetus with trisomy 13, single gestation [O35.11*02/08/2024 06/19/2024 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*06/19/2024 12/02/2024 Thyroid antibody positive [R76.8] 06/29/2024 with uncertain viability [O36.8*12/02/2024 12/02/2024 Confirm viability, history of recurrent m*12/02/2024 12/02/2024 Subchorionic hematoma in first trimester [O41.8*12/02/2024 PTSD (post-traumatic stress disorder) [F43.10] 12/24/2024 History of headache [Z87.898] 12/24/2024 Heartburn during in first trimester (*12/24/2024 Encounter for supervision of high risk pregnanc*12/24/2024 History of delivery [Z98.891] 12/24/2024 Family history of trisomy 13 [Z82.79] 12/24/2024 History of depression [Z87.59, Z86.5*12/24/2024 Nausea and vomiting during (HCC) [O21*12/24/2024 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 - Single, live, intrauterine . - [place] rump length measurement is consistent with the established gestational age. - A qualitative screen of the nuchal translucency and other anatomic structures was unremarkable on a complete first trimester anatomic assessment. - Not all structural malformations can be detected by ultrasound examination. Maternal Structures: Right Ovary: Size 30 mm x 23 mm x 18 mm Left Ovary: Size 34 mm x 24 mm x 24 mm Recommendations - A standard anatomic survey at 16 weeks can be offered and a detailed exam at 20 weeks is recommended for increased risk. Maternal Assessment Height 170 cm Height (ft) 5 ft Height (in) 7 in Physical Exam Initial weight (lb) 223 lb Initial BMI 34.93 kg/m Maternal assessment other: 9 Para 3 REMOTE READ Method Transabdominal ultrasound examination Number of fetuses: 1 Dating LMP on: 10/06/2024 GA by LMP 14 w + 1 d SANDIE by LMP: 07/13/2025 GA by prior assessment 12 w + 5 d SANDIE by prior assessment: 07/23/2025 Ultrasound examination on: 01/13/2025 GA by U/S based upon: CRL GA by U/S 13 w + 3 d SANDIE by U/S: 07/18/2025 Assigned: based on stated SANDIE, selected on 01/13/2025 Assigned GA 12 w + 5 d Assigned SANDIE: 07/23/2025 General Evaluation Cardiac activity present Placenta: anterior Cord vessels: 3 vessel cord Amniotic fluid: normal amount Biometry Standard FHR 161 bpm CRL 73.8 mm 13w 3d 91% [place] First Trimester Anatomy Calvarium: normal Falx cerebri: normal Choroid plexus: normal Profile: normal Nasal bone: normal Retronasal triangle: normal Maxilla: normal Mandible: normal Nuchal translucency: Unremarkable Situs: normal Cardiac position: normal Cardiac axis: normal 4-chamber view: visualized 4-chamber view with color: visualized 5-lzmzde-mlnewyq view: normal Abdominal cord insertion: normal Stomach: normal Kidneys: normal Bladder: normal Color doppler of perivesical umbilical arteries: normal Vertebral alignment: normal Arms: normal Hands: normal Legs: normal Feet: normal Maternal Structures Uterus / Cervix Uterus: Visualized Uterus length 148 mm Uterus width 114 mm Uterus height 74 mm Uterus Vol 657.0 cm Ovaries / Tubes / Adnexa Rt ovary: Visualized Rt ovary D1 30 mm Rt ovary D2 23 mm Rt ovary D3 18 mm Rt ovary Vol 6.5 cm Lt ovary: Visualized Lt ovary D1 34 mm Lt ovary D2 24 mm Lt ovary D3 24 mm Lt ovary Vol 10.1 cm Performed By: Mildred Fink RDMS, RVT Read By: Selena Demarco M.D. MATERNAL MEDICINE [facility] Radiology Study observation (narrative) [facility] T3Free SerPl-mCncon 01-14-20 25 Free T3 [Mass/Vol] 3.3 pg/mL Normal 2.3-4.1 [facility] Comment on above: Order Comment: Speci men Type: BLOOD SPECIMEN Ordering Facility: [facility] Address: [address] [place] [address] Performed By: #### T SPN #### [facility] CLIA [id number] [address] [place] [address] [place] T4 Free SerPl-mCncon 025 Free T4 [Mass/Vol] 0.8 ng/dL Low 0.9-1.7 [facility] Comment on above: Order Comment: Speci men Type: BLOOD SPECIMEN Ordering Facility: [facility] Address: [address] [place] [address] Performed By: #### T SPN #### [facility] CLIA [id number] [address] [place] [address] [place] THYROXIN, FR BY EQ DIALYSIS/ HPLC-TNDMMSon 01-13-2025 FREE T4 BY EQ DIALYSIS 1.1 ng/dL Normal 1.1-2.4 [facility] Comment on above: Order Comment: Preston nicole Type: BLOOD SPECIMEN Ordering Facility: [facility] Address: [address] [place] [address] Result Comment: FREE T4 BY EQUIL DIALYSIS-TMS: REFERENCE INTERVALS 1ST TRIMESTER ...... 0.7 - 2.0 ng/dL 2ND TRIMESTER ...... 0.7 - 2.1 ng/dL 3RD TRIMESTER ...... 0.5 - 1.6 ng/dL INTERPRETIVE INFORMATION: FT4 ED-TMS Some medications may induce transient changes in FT4 concentrations. This test is not recommended for patients currently on heparin treatment as FT4 concentrations may be falsely elevated. Performed By: [employer] [address] [place] [id number] Accounting Supervisor: Andrés Mcgrath MD, PhD CLIA Number: [id number] Performed By: #### C HRBLD #### [facility] CLIA [id number] [address] [place] [address] [place] TSH SerPl-aCncon 01-13-2025 TSH Qn 2.290 m[IU]/L Normal 0.270-4.200 [facility] Comment on above: Order Comment: Preston nicole Type: BLOOD SPECIMENOrdering Facility: [facility] Address: [address] [place] [address] Result Comment: If t he patient is , TSH reference range varies by gestational period: First Trimester (weeks 9-12): 0.180-2.990 mIU/L Second Trimester: 0.110-3.980 mIU/L Third Trimester: 0.480-4.710 mIU/L Guillermo Duke et al. A Practical Approach for the Verifications and Determination of Site- and Trimester-Specific Reference Intervals for Thyroid Function tests in . Thyroid, 2019:29:3:412-420. Morris Chun, et al. 2017 Guidelines of the [place] [employer] Association for the Diagnosis and Management of Thyroid Disease during and the . Thyroid, 2017:27:3:315-389. Performed By: #### 3 024-7, 3016-3, 3051-0 ####[facility] [id number] [address] OF [facility] CNOVon 01-06-2025 CNOV Office Visit (ENWSTR) ---- LUCIE DENT ([id number]) 1990 F Date Time Provider Department 01/06/25 9:20 AM FRANK LYON ENWSTR During your visit today, we recorded the following information about you: Temperature Pulse Respiration Blood pressure 98.8 degrees 93/minute 14/minute 122/74 Weight 101.5 kg Frank Lyon MD 01/10/2025 6:44 PM Signed [facility] Follow up note Consulted by: Suzi Franco DO Chief Complaint: elevated TPO antibodies HPI: This is a 34 year old female who presents for evaluation of elevated TPO antibodies She has 3 kids, underwent tubectomy, and then she had reversal of tubal ligation recently with attempts to getting In February 08, 2024 she had D and E at 22 weeks. She was again but ended in miscarriage. She would like to get before 38 years She has lupus antibody positive as well Reports symptoms of weight gain, cold sensitivity FH: cousin had to have thyroid removed, grand mother had lupus Interval history: 01/06/2025 She is at 11 weeks. This is the 9th , with 3 live children She is taking Zofran for severe sickness, and famotidine She lost some weight, but starting gaining again PAST MEDICAL HISTORY: PAST MEDICAL HISTORY Diagnosis Date Anemia Anxiety Asthma (HCC) Depression Ectopic ([facility]) 2021 Fetus with trisomy 13, single gestation ([facility]) 02/08/2024 Jose's thyroiditis Hidradenitis suppurativa History of delivery of macrosomal infant 10/02/2022 Hgb A1C at [facility]. Yuliya Jackson APRN.CNM 10/02/2022 Patient's first child weighed 9 pounds 1 ounce at and second child 10 pounds 3 ounces at .TKRN History of depression History of reversal of tubal ligation 10/02/2022 10/02/2022 Patient had a tubal reversal by Dr. Ayala June 2021. TKRN PCOS (polycystic ovarian syndrome) 2019 depression Recurrent loss 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 06/19/2024 PAST SURGICAL HISTORY: PAST SURGICAL HISTORY Procedure Laterality Date DELIVERY ONLY , low transverse DELIVERY ONLY , low transverse DELIVERY ONLY , low transverse HSG LIG/TRNSXJ FLP TUBE ABDL/VAG APPR UNI/BI 2018 Tubal ligation MANUAL VACUUM ASPIRATION 06/02/2024 SALPINGECTOMY 09/07/2021 RIGHT SIDE - ectopic at [facility] TONSILLECTOMY AND ADENOIDECTOMY HX UNL LAP TUBAL ANASTOMOSIS Bilateral FAMILY HISTORY: FAMILY HISTORY Problem Relation Age of Onset Fibromyalgia Mother other (Endometrosis) Mother other (Rheumatoid Arthritis) Mother Anxiety disorder Mother Depression Mother No Known Problems Father no relationship Asthma Sister Depression Brother Asthma Brother Hypertension Brother Asthma Maternal Grandmother Heart Maternal Grandmother Systemic Lupus Erythematosus Maternal Grandmother Diabetes Maternal Grandmother No Known Problems Maternal Grandfather No Known Problems Daughter No Known Problems Son No Known Problems Son other (trisomy 13) Son Anesthesia Problems No Family History SOCIAL HISTORY: Social History Tobacco Use Smoking status: Never Smokeless tobacco: Never Tobacco comments: Vape Vaping Use Vaping status: Former Start date: 11/27/2024 Substances: Nicotine (OCCASIONAL) Substance Use Topics Alcohol use: Not Currently Comment: Socially Drug use: Never MEDICATIONS: Current Outpatient Medications Medication Sig aspirin, enteric coated (ECOTRIN LOW STRENGTH) 81 mg EC tablet Take 1 tablet by mouth once daily. ondansetron orally disintegrating (ZOFRAN ODT) 4 mg disintegrating tablet Take 1 tablet by mouth every 8 hours as needed for nausea/vomiting. famotidine (PEPCID) 20 mg tablet Take 1 tablet by mouth two times a day. progesterone micronized (PROMETRIUM) 200 mg capsule Use 1 capsule vaginally two times a day. OTC NUTRITIONAL SUPPLEMENT Take by mouth once daily. Myoinstol Cholecalciferol, Vitamin D3, 50 mcg (2,000 unit) cap busPIRone (BUSPAR) 5 mg tablet Take 1 tablet by mouth three times a day. ferrous sulfate (IRON ORAL) Take by mouth. acetaminophen (TYLENOL EXTRA STRENGTH) 500 mg tablet Take 2 tablets by mouth every 8 hours as needed for pain. PNV/iron/omega3/fol ic acid/min (PRENAT KV-TYEP-NS-FA-OM3-M INAA ORAL) Take by mouth. No current facility-administer ed medications for this visit. ALLERGIES: ALLERGIES Allergen Reactions Sulfa (Sulfonamide * Hives, Shortness of Breath REVIEW OF SYSTEMS: 10 point ROS was reviewed and negative unless indicated in the HPI PHYSICAL EXAM: BP 122/74 (BP Site: Right Arm, BP Position: Sitting, BP Cuff Size: Regular Adult) Pulse 93 Temp 37.1 ?C (98.8 ?F) (Temporal Artery) Resp 14 Wt 101.5 kg (223 lb 12.8 oz) LMP 10/06/2024 SpO2 98% BMI 36.12 k (more content not included)... Normal [facility] 01-06-2025 [facility] Telephone (PSYRMN) ---- LUCIE DENT ([id number]) 1990 F Date Time Provider Department 01/06/25 LAURA ROMANO PSYRMN During your visit today, we recorded the following information about you: Laura Romano LISW 01/06/2025 2:53 PM Signed Review of referral with patient. Was patient aware of [facility] referral placement by provider?Yes Is the patient currently connected for care : No If not connected to Care are they agreeable to referral?Yes If agreeable to referral, are they:Internal Comment: Pt wishes to say within [facility] if possible Assisted in making appt at: [facility] Psychology Appointment date and time: TBD-referred to Lilly Moyer Current priority status of the referral Medium Additional information: Pt is 34 years old, at 11 weeks EGA. Pt has h/o multiple losses, most recently last May at 20 weeks EGA d/t Trisomy-13. Pt is experiencing anxiety in this and would like to engage in counseling to help her cope in and prepare for . Pt has h/o PTSD and depression, took Zoloft in the past for several years which eventually became ineffective. She does not desire medication at this time. Allergies As of Date: 01/06/2025 Noted Allergy Reaction SULFA (SULFONAMIDE ANTIBIOTICS) 07/21/2020 4 - Hives 12 - Shortness of Breath Date Reviewed: 01/06/2025 Reviewed by: Fern Solorio MA - Fully Assessed Reason for Visit: Crystal Slicer - Other [3602] Cmt: [facility] referral follow up Prescriptions as of 01/06/2025 - aspirin, enteric coated (ECOTRIN LOW STRENGTH) 81 mg EC tablet Take 1 tablet by mouth once daily. - ondansetron orally disintegrating (ZOFRAN ODT) 4 mg disintegrating tablet Take 1 tablet by mouth every 8 hours as needed for nausea/vomiting. - famotidine (PEPCID) 20 mg tablet Take 1 tablet by mouth two times a day. - progesterone micronized (PROMETRIUM) 200 mg capsule Use 1 capsule vaginally two times a day. - OTC NUTRITIONAL SUPPLEMENT Take by mouth once daily. Myoinstol - Cholecalciferol, Vitamin D3, 50 mcg (2,000 unit) cap - busPIRone (BUSPAR) 5 mg tablet Take 1 tablet by mouth three times a day. - ferrous sulfate (IRON ORAL) Take by mouth. - acetaminophen (TYLENOL EXTRA STRENGTH) 500 mg tablet Take 2 tablets by mouth every 8 hours as needed for pain. - PNV/iron/omega3/fol ic acid/min (PRENAT IA-RZHI-LS-FA-OM3-M INAA ORAL) Take by mouth. Problem List As Of Date 01/06/2025 Noted Resolved with history of section, ant*10/02/2022 06/19/2024 History of reversal of tubal ligation [Z98.890] 10/02/2022 with history of ectopic , an*10/02/2022 History of delivery of macrosomal [Z87.5*10/02/2022 Family history of muscular dystrophy [Z82.0] 10/02/2022 Anxiety and depression [F41.9, F32.A] 10/02/2022 Supervision of other high risk pregnancies, fir*10/26/2023 06/19/2024 Obesity affecting in first trimester *10/26/2023 History of asthma [Z87.09] 10/26/2023 Asthma affecting in first trimester [*10/31/2023 06/19/2024 Fetus with trisomy 13, single gestation [O35.11*02/08/2024 06/19/2024 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*06/19/2024 12/02/2024 Thyroid antibody positive [R76.8] 06/29/2024 with uncertain viability [O36.8*12/02/2024 12/02/2024 Confirm viability, history of recurrent m*12/02/2024 12/02/2024 Subchorionic hematoma in first trimester [O41.8*12/02/2024 PTSD (post-traumatic stress disorder) [F43.10] 12/24/2024 History of headache [Z87.898] 12/24/2024 Heartburn during in first trimester (*12/24/2024 Encounter for supervision of high risk pregnanc*12/24/2024 History of delivery [Z98.891] 12/24/2024 Family history of trisomy 13 [Z82.79] 12/24/2024 History of depression [Z87.59, Z86.5*12/24/2024 Nausea and vomiting during (HCC) [O21*12/24/2024 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] 12/24/2024 Constipation during in first trimeste*12/24/2024 Encounter Status:Closed by LAURA ROMANO on 01/06/25 [facility] CBC W Auto Differential pane l (Bld)on 01-02-2025 Basophils (Bld) [#/Vol] 0.03 10*3/uL Normal <0.11 [facility] Comment on above: Order Comment: Speci men Type: BLOOD SPECIMEN Ordering Facility: [facility] Address: [address] [place] [address] Performed By: #### M ICRO #### [facility] CLIA [id number] [address] [place] [address] [place] Basophils/100 WBC (Bld) 0.3 % Normal [facility] Comment on above: Order Comment: Speci men Type: BLOOD SPECIMEN Ordering Facility: [facility] Address: [address] [place] [address] Performed By: #### M ICRO #### [facility] CLIA [id number] [address] [place] [address] [place] Differential cell count method Nom (Bld) Auto Normal [facility] Comment on above: Order Comment: Speci men Type: BLOOD SPECIMEN Ordering Facility: [facility] Address: [address] [place] [address] Performed By: #### M ICRO #### [facility] CLIA [id number] [address] [place] [address] [place] Eosinophils (Bld) [#/Vol] 0.08 10*3/uL Normal <0.46 [facility] Comment on above: Order Comment: Speci men Type: BLOOD SPECIMEN Ordering Facility: [facility] Address: [address] [place] [address] Performed By: #### M ICRO #### [facility] CLIA [id number] [address] [place] [address] [place] Eosinophils/100 WBC (Bld) 0.9 % Normal [facility] Comment on above: Order Comment: Speci men Type: BLOOD SPECIMEN Ordering Facility: [facility] Address: [address] [place] [address] Performed By: #### M ICRO #### [facility] CLIA [id number] [address] [place] [address] [place] Erythrocyte distribution width (RBC) [Ratio] 12.4 % Normal 11.5-15.0 [facility] Comment on above: Order Comment: Speci men Type: BLOOD SPECIMEN Ordering Facility: [facility] Address: [address] [place] [address] Performed By: #### M ICRO #### [facility] CLIA [id number] [address] [place] [address] [place] Hematocrit (Bld) [Volume fraction] 36.8 % Normal 36.0-46.0 [facility] Comment on above: Order Comment: Speci men Type: BLOOD SPECIMEN Ordering Facility: [facility] Address: [address] [place] [address] Performed By: #### M ICRO #### [facility] CLIA [id number] [address] [place] [address] [place] Hemoglobin (Bld) [Mass/Vol] 12.4 g/dL Normal 11.5-15.5 [facility] Comment on above: Order Comment: Speci men Type: BLOOD SPECIMEN Ordering Facility: [facility] Address: [address] [place] [address] Performed By: #### M ICRO #### [facility] CLIA [id number] [address] [place] [address] [place] Immature granulocytes (Bld) [#/Vol] 0.04 10*3/uL Normal <0.10 [facility] Comment on above: Order Comment: Speci men Type: BLOOD SPECIMEN Ordering Facility: [facility] Address: [address] [place] [address] Performed By: #### M ICRO #### [facility] CLIA [id number] [address] [place] [address] [place] Immature granulocytes/100 WBC (Bld) 0.4 % Normal [facility] Comment on above: Order Comment: Speci men Type: BLOOD SPECIMEN Ordering Facility: [facility] Address: [address] [place] [address] Performed By: #### M ICRO #### [facility] CLIA [id number] [address] [place] [address] [place] Lymphocytes (Bld) [#/Vol] 1.62 10*3/uL Normal 1.00-4.00 [facility] Comment on above: Order Comment: Speci men Type: BLOOD SPECIMEN Ordering Facility: [facility] Address: [address] [place] [address] Performed By: #### M ICRO #### [facility] CLIA [id number] [address] [place] [address] [place] Lymphocytes/100 WBC (Bld) 18.1 % Normal [facility] Comment on above: Order Comment: Speci men Type: BLOOD SPECIMEN Ordering Facility: [facility] Address: [address] [place] [address] Performed By: #### M ICRO #### [facility] CLIA [id number] [address] [place] [address] [place] MCH (RBC) [Entitic mass] 28.8 pg Normal 26.0-34.0 [facility] Comment on above: Order Comment: Speci men Type: BLOOD SPECIMEN Ordering Facility: [facility] Address: [address] [place] [address] Performed By: #### M ICRO #### [facility] CLIA [id number] [address] [place] [address] [place] MCHC (RBC) [Mass/Vol] 33.7 g/dL Normal 30.5-36.0 [facility] Comment on above: Order Comment: Speci men Type: BLOOD SPECIMEN Ordering Facility: [facility] Address: [address] [place] [address] Performed By: #### M ICRO #### [facility] CLIA [id number] [address] [place] [address] [place] MCV (RBC) [Entitic vol] 85.6 fL Normal 80.0-100.0 [facility] Comment on above: Order Comment: Speci men Type: BLOOD SPECIMEN Ordering Facility: [facility] Address: [address] [place] [address] Performed By: #### M ICRO #### [facility] CLIA [id number] [address] [place] [address] [place] Monocytes (Bld) [#/Vol] 0.43 10*3/uL Normal <0.87 [facility] Comment on above: Order Comment: Speci men Type: BLOOD SPECIMEN Ordering Facility: [facility] Address: [address] [place] [address] Performed By: #### M ICRO #### [facility] CLIA [id number] [address] [place] [address] [place] Monocytes/100 WBC (Bld) 4.8 % Normal [facility] Comment on above: Order Comment: Speci men Type: BLOOD SPECIMEN Ordering Facility: [facility] Address: [address] [place] [address] Performed By: #### M ICRO #### [facility] CLIA [id number] [address] [place] [address] [place] Neutrophils (Bld) [#/Vol] 6.77 10*3/uL Normal 1.45-7.50 [facility] Comment on above: Order Comment: Speci men Type: BLOOD SPECIMEN Ordering Facility: [facility] Address: [address] [place] [address] Performed By: #### M ICRO #### [facility] CLIA [id number] [address] [place] [address] [place] Neutrophils/100 WBC (Bld) 75.5 % Normal [facility] Comment on above: Order Comment: Speci men Type: BLOOD SPECIMEN Ordering Facility: [facility] Address: [address] [place] [address] Performed By: #### M ICRO #### [facility] CLIA [id number] [address] [place] [address] [place] Nucleated RBC (Bld) [#/Vol] 10*3/uL Normal <0.01 [facility] Comment on above: Order Comment: Speci men Type: BLOOD SPECIMEN Ordering Facility: [facility] Address: [address] [place] [address] Performed By: #### M ICRO #### [facility] CLIA [id number] [address] [place] [address] [place] Nucleated RBC/100 WBC (Bld) [Ratio] 0.0 /100 WBC Normal [facility] Comment on above: Order Comment: Speci men Type: BLOOD SPECIMEN Ordering Facility: [facility] Address: [address] [place] [address] Performed By: #### M ICRO #### [facility] CLIA [id number] [address] [place] [address] [place] Platelet mean volume (Bld) [Entitic vol] 9.2 fL Normal 9.0-12.7 [facility] Comment on above: Order Comment: Speci men Type: BLOOD SPECIMEN [facility] [facility] Address: [address] [place] [address] Performed By: #### M ICRO #### [facility] CLIA [id number] [address] [place] [address] [place] Platelets (Bld) [#/Vol] 250 10*3/uL Normal 150-400 [facility] Comment on above: Order Comment: Speci men Type: BLOOD SPECIMEN Ordering Facility: [facility] Address: [address] [place] [address] Performed By: #### M ICRO #### [facility] CLIA [id number] [address] [place] [address] [place] RBC (Bld) [#/Vol] 4.30 10*6/uL Normal 3.90-5.20 [facility] Comment on above: Order Comment: Speci men Type: BLOOD SPECIMEN Ordering Facility: [facility] Address: [address] [place] [address] Performed By: #### M ICRO #### [facility] CLIA [id number] [address] [place] [address] [place] WBC (Bld) [#/Vol] 8.97 10*3/uL Normal 3.70-11.00 [facility] Comment on above: Order Comment: Speci men Type: BLOOD SPECIMEN Ordering Facility: [facility] Address: [address] [place] [address] Performed By: #### M ICRO #### [facility] CLIA [id number] [address] [place] [address] [place] HBV surface Ag Ser Qlon 12-10 HBV surface Ag Ql (S) Negative Normal Negative [facility] Comment on above: Order Comment: Speci men Type: BLOOD SPECIMEN Ordering Facility: [facility] Address: [address] [place] [address] Performed By: #### T SPN #### [facility] CLIA [id number] [address] [place] [address] [place] HCV Ab Ser Qlon 01-02-2025 HCV Ab Ql (S) Negative Normal Negative [facility] Comment on above: Order Comment: Speci men Type: BLOOD SPECIMEN Ordering Facility: [facility] Address: [address] [place] [address] Result Comment: The result suggests no evidence of infection with Hepatitis C virus. Should recent infection be suspected, repeat testing may be considered 4-6 weeks after this draw. Performed By: #### 2 1198-7 #### [facility] CLIA [id number] [address] [place] [address] [place] HIV 1+2 Ab IA Qlon 5 HIV 1 and 2 Ab IA.rapid Nom (S/P/Bld) Normal [facility] Comment on above: Order Comment: Speci men Type: BLOOD SPECIMEN Ordering Facility: [facility] Address: [address] [place] [address] Result Comment: Test not indicated. Performed By: #### T SPN #### [facility] CLIA [id number] [address] [place] [address] [place] HIV 1+2 Ab+HIV1 p24 Ag IA Ql Non-Reactive Normal Nonreactive [facility] Comment on above: Order Comment: Speci men Type: BLOOD SPECIMEN Ordering Facility: [facility] Address: [address] [place] [address] Performed By: #### T SPN #### [facility] CLIA [id number] [address] [place] [address] STATES [facility] HIV immunoassay testing algorithm interpretation (S/P/Bld) [Interp] Normal [facility] Comment on above: Order Comment: Speci men Type: BLOOD SPECIMEN Ordering Facility: [facility] Address: [address] [place] [address] Result Comment: No e vidence of HIV-1 or HIV-2 infection. Should recent infection be suspected, repeat testing may be considered 2-3 weeks after this draw. [place] Rev. Code 3701.243(E): This information has been disclosed to you from confidential records protected from disclosure by state law. ???You shall make no further disclosure of this information without the specific, written, and informed release of the individual to whom it pertains or as otherwise permitted by state law. A general authorization for the release of medical or other information is not sufficient for the purpose of the release of HIV test results or diagnoses. Performed By: #### T SPN #### [facility] CLIA [id number] [address] [place] [address] [place] HbA1c (Bld)on 01-02-2025 Average glucose Estimated from glycated hemoglobin (Bld) [Mass/Vol] 111 mg/dL Normal [facility] Comment on above: Order Comment: Preston nicole Type: BLOOD SPECIMENOrdering Facility: [facility] Address: [address] [place] [address] Result Comment: eAG: (Estimated average glucose) is a calculated value from HgbA1c and is c s s representative of the average blood glucose level in the last 2-3 month period. Performed By: #### 5 5454-3 ####[facility] [id number] [place] [address] [place] HbA1c (Bld) [Mass fraction] 5.5 % Normal 4.3-5.6 [facility] Comment on above: Order Comment: Preston nicole Type: BLOOD SPECIMENOrdering Facility: [facility] Address: [address] [place] [address] Result Comment: Amer ican Diabetes Association guidelines indicate that patients with HgbA1c in the range 5.7-6.4% are at increased risk for development of diabetes, and intervention by lifestyle modification may be beneficial. HgbA1c greater or equal to 6.5% is considered diagnostic of diabetes. Performed By: #### 5 5454-3 ####[facility] [id number] [place] [address] [place] [id number] PLUSon 01-02-2025 Cell-free DNA./Cell-free DNA.total Dosage of chromosome-specific cfDNA (cfDNA) [Molar fraction] 14% Normal [facility] Comment on above: Order Comment: Keyshai corey Type: BLOOD SPECIMEN Ordering Facility: [facility] Address: [address] [place] [address] Performed By: #### M ICRO #### [facility] CLIA [id number] [address] [place] [address] [place] Chr 13+18+21+X+Y aneuploidy Dosage of chromosome-specific cfDNA Ql (cfDNA) Negative Normal [facility] Comment on above: Order Comment: Speci men Type: BLOOD SPECIMEN Ordering Facility: [facility] Address: [address] [place] [address] Performed By: #### M ICRO #### [facility] CLIA [id number] [address] [place] [address] [place] Chr 21 trisomy Dosage of chromosome-specific cfDNA Ql (cfDNA) Negative Normal [facility] Comment on above: Order Comment: Speci men Type: BLOOD SPECIMEN Ordering Facility: [facility] Address: [address] [place] [address] Performed By: #### M ICRO #### [facility] CLIA [id number] [address] [place] [address] [place] Chr X and Y aneuploidy risk Sequencing Ql (cfDNA) [Interp] Not detected Normal [facility] Comment on above: Order Comment: Speci men Type: BLOOD SPECIMEN Ordering Facility: [facility] Address: [address] [place] [address] Result Comment: Not Detected Not Detected Performed By: #### M ICRO #### [facility] CLIA [id number] [address] [place] [address] [place] Citation Ronal (Reference lab test) Comment Normal [facility] Comment on above: Order Comment: Speci men Type: BLOOD SPECIMEN Ordering Facility: [facility] Address: [address] [place] [address] Result Comment: 1. P sarahi BAKER, et al. Karla Med. 2012;14(3):296-305. 2. Marlon MITCHELL et al. Prenat Diag. 2013;33(6):591-597. 3. Haim C, et al. Clin Chem. 2015 Apr;61(4):608-616. 4. Lelia BAKER et al. Karla Med. 2011;13(11):913-920. 5. ACOG/SMFM Practice Bulletin No. 226, Jun 2020. Performed By: #### M ICRO #### [facility] CLIA [id number] [address] [place] [address] [place] Gestational age Estimated from conception date Phan Normal [facility] Comment on above: Order Comment: Keyshai corey Type: BLOOD SPECIMEN Ordering Facility: [facility] Address: [address] [place] [address] Performed By: #### M ICRO #### [facility] CLIA [id number] [address] [place] [address] [place] GESTATIONALAGE AGE > OR = 9W Yes Normal [facility] Comment on above: Order Comment: Speci corey Type: BLOOD SPECIMEN Ordering Facility: [facility] Address: [address] [place] [address] Performed By: #### M ICRO #### [facility] CLIA [id number] [address] [place] [address] [place] Laboratory comment Ronal (Report) Comment Normal [facility] Comment on above: Order Comment: Preston incole Type: BLOOD SPECIMEN Ordering Facility: [facility] Address: [address] [place] [address] Result Comment: The MaterniT(R) 21 PLUS laboratory-developed test (LDT) analyzes circulating cell-free DNA from a maternal blood sample. This test is used for screening purposes and not diagnostic. Clinical correlation is recommended. Validation data on twin pregnancies is limited and the ability of this test to detect aneuploidy in higher multiple gestations has not yet been validated. Performed By: #### M ICRO #### [facility] CLIA [id number] [address] [place] [address] [place] director of workforce development name Nom (Provider) Comment Normal [facility] Comment on above: Order Comment: Keyshai corey Type: BLOOD SPECIMEN Ordering Facility: [facility] Address: [address] [place] [address] Result Comment: This specimen showed an expected representation of chromosome 21, 18 and 13 material. Clinical correlation is suggested. Comment Daryl Early MD, PhD, Director, [employer] Performed By: #### M ICRO #### [facility] CLIA [id number] [address] [facility] [place] [address] [place] LIMITATIONS OF THE TEST Comment Normal [facility] Comment on above: Order Comment: Speci men Type: BLOOD SPECIMEN Ordering Facility: [facility] Address: [address] [place] [address] Result Comment: Whmanjula chun the results of these tests are highly reliable, discordant results, including inaccurate sex prediction, may occur due to placental, maternal, or mosaicism or neoplasm; vanishing twin; prior maternal organ transplant; or other causes. These tests are screening tests and not diagnostic; they do not replace the accuracy and precision of diagnosis with CVS or amniocentesis. A patient with a positive test result should be referred for genetic counseling and offered invasive diagnosis for confirmation of test results.[5] The results of this testing, including the benefits and limitations, should be discussed with a qualified healthcare provider. management decisions, including termination of the , should not be based on the results of these tests alone. The healthcare provider is responsible for the use of this information in the management of their patient. Sex chromosomal aneuploidies are not reportable for known multiple gestations. A negative result does not ensure an unaffected nor does it exclude the possibility of other chromosomal abnormalities or defects which are not a part of these tests. An uninformative result may be reported, the causes of which may include, but are not limited to, insufficient sequencing coverage, noise or artifacts in the region, amplification or sequencing bias, or insufficient fraction. These tests are not intended to identify pregnancies at risk for neural tube defects or ventral wall defects. Testing for whole chromosome abnormalities (including sex chromosomes) and for subchromosomal abnormalities could lead to the potential discovery of both and maternal genomic abnormalities that could have major, minor, or no, clinical significance. Evaluating the significance of a positive or a non-reportable result may involve both invasive testing and additional studies on the mother. Such investigations may lead to a diagnosis of maternal chromosomal or subchromosomal abnormalities, which on occasion may be associated with benign or malignant maternal neoplasms. These tests may not accurately identify triploidy, balanced rearrangements, or the precise location of subchromosomal duplications or deletions; these may be detected by diagnosis with CVS or amniocentesis. The ability to report results may be impacted by maternal BMI, maternal weight, maternal systemic lupus erythematosus (SLE) and/or by certain pharmaceutical agents such as low molecular weight heparin (for example: Lovenox(R), Xaparin(R), Clexane(R) and Fragmin(R)). Performed By: #### M REBEKAHO #### [facility] CLIA [id number] [address] [place] [address] Monosomy X risk Dosage of chromosome-specific cfDNA Ql (Plasma cell-free+WBC DNA) [Interp] Not detected Normal [facility] Comment on above: Order Comment: Preston nicole Type: BLOOD SPECIMEN Ordering Facility: [facility] Address: [address] [place] [address] Performed By: #### M REBEKAHO #### [facility] CLIA [id number] [address] [place] [address] NEGATIVE PREDICTIVE VALUE Note Normal [facility] Comment on above: Order Comment: Preston nicole Type: BLOOD SPECIMEN Ordering Facility: [facility] Address: [address] [place] [address] Result Comment: The Negative Predictive Value (NPV) for trisomy 21, 18, and 13 is greater than 99%. The NPV for SCA and ESS cannot be calculated as SCA and ESS are only reported when an abnormality is detected. Performed By: #### M ICRO #### [facility] CLIA [id number] [address] [place] [address] [place] PERFORMANCE CHARACTERISTICS Note Normal [facility] Comment on above: Order Comment: Preston nicole Type: BLOOD SPECIMEN Ordering Facility: [facility] Address: [address] [place] [address] Result Comment: ! Sex ! Accuracy: 99.4% ! ! ! ! Region (associated syndrome) ! Est. Sens# ! Est. Spec ! ! ! ! Trisomy 21 (Down Syndrome) ! 99.1% ! 99.9% ! ! ! ! Trisomy 18 (Rojas Syndrome) ! >99.9% ! 99.6% ! ! ! ! Trisomy 13 (Patau Syndrome) ! 91.7% ! 99.7% ! ! ! ! Sex Chromosome Aneuploidies## ! 96.2% ! 99.7% ! ! ! * As reported in [facility] database nstd37 [https://www.ncbi.nlm.nih.gov/dbvar/studies/nstd37/ ] # Estimated Sensitivity. Sensitivity estimated across the observed size distribution of each syndrome [per ISCA database nstd37] and across the range of fractions observed in routine clinical NIPT. Actual sensitivity can also be influenced by other factors such as the size of the event, total sequence counts, amplification bias, or sequence bias. ## Phan gestation only. Performed By: #### M ICRO #### [facility] CLIA [id number] [address] [place] [address] [place] POSITIVE PREDICTIVE VALUE N/A Normal [facility] Comment on above: Order Comment: Speci men Type: BLOOD SPECIMEN Ordering Facility: [facility] Address: [address] [place] [address] Performed By: #### M ICRO #### [facility] CLIA [id number] [address] [place] [address] [place] [facility] Reference Lab Test Method Comment Normal [facility] Comment on above: Order Comment: Speci men Type: BLOOD SPECIMEN Ordering Facility: [facility] Address: [address] [place] [address] Result Comment: See Notes Circulating cell-free DNA was purified from the plasma component of maternal blood. The extracted DNA was then converted into a genomic DNA library for aneuploidy analysis of chromosomes 21, 18, and 13 via next generation sequencing.[1] Optional findings based on the test order include sex chromosome aneuploidy (SCA)[2], and enhanced sequencing series (ESS)[3], which will only be reported on as an additional finding when an abnormality is detected. SCA testing includes information on X and Y representation, while ESS testing includes deletions in selected regions (22q, 15q, 11q, 8q, 5p, 4p, 1p) and trisomy of chromosomes 16 and 22. Performed By: #### M ICRO #### [facility] CLIA [id number] [address] [place] [address] [place] Service comment (Unsp spec) [Interp] Comment Normal [facility] Comment on above: Order Comment: Speci men Type: BLOOD SPECIMEN Ordering Facility: [facility] Address: [address] [place] [address] Result Comment: See Notes [employer]. is a subsidiary of [employer], using the brand [facility]. This test was developed and its performance characteristics determined by [employer]. It has not been cleared or approved by the Food and Drug Administration. This laboratory is certified under the Clinical Laboratory Improvement Amendments (CLIA) as qualified to perform high complexity clinical laboratory testing and accredited by the College of [employer]ry[employer] (CAP). If there is future clinical need for adding MaterniT GENOME testing, this specimen will be available until term. [facility] samples will not be retained beyond 60 days. [facility] patients will have to send a new sample for re-sequencing ([facility] Test Code: [id number]). Performed By: #### M ICRO #### [facility] CLIA [id number] [address] [place] [address] [place] Sex Dosage of chromosome-specific cfDNA Nom (cfDNA) Comment Normal [facility] Comment on above: Order Comment: Speci men Type: BLOOD SPECIMEN Ordering Facility: [facility] Address: [address] [place] [address] Result Comment: Cons istent with Female Performed By: #### M ICRO #### [facility] CLIA [id number] [address] [place] [address] [place] Test performance information Ronal (Unsp spec) Comment Normal [facility] Comment on above: Order Comment: Speci men Type: BLOOD SPECIMEN Ordering Facility: [facility] Address: [address] [place] [address] Result Comment: The performance characteristics of the MaterniT(R) 21 PLUS laboratory-developed test (LDT) have been determined in a clinical validation study with women at increased risk for chromosomal aneuploidy.[1-4] Performed By: #### M ICRO #### [facility] CLIA [id number] [address] [place] [address] [place] Trisomy 13 risk Dosage of chromosome-specific cfDNA Ql (cfDNA) [Interp] Negative Normal [facility] Comment on above: Order Comment: Speci men Type: BLOOD SPECIMEN Ordering Facility: [facility] Address: [address] [place] [address] Performed By: #### M ICRO #### [facility] CLIA [id number] [address] [place] [address] [place] Trisomy 18 risk Dosage of chromosome-specific cfDNA Ql (Plasma cell-free+WBC DNA) [Interp] Negative Normal [facility] Comment on above: Order Comment: Speci [facility] Type: BLOOD SPECIMEN Ordering Facility: [facility] Address: [address] [place] [address] Performed By: #### M ICRO #### [facility] CLIA [id number] [address] [place] [address] [place] RUBELLA IGG ANTIBODYon 01-02 RUBELLA IGG AB, QUAL Positive Normal Positive [facility] Comment on above: Order Comment: Speci [facility] Type: BLOOD SPECIMEN Ordering Facility: [facility] Address: [address] [place] [address] Result Comment: The result suggests recent or past exposure to Rubella virus or history of Rubella vaccination. Positive result may also be seen due to presence of passively-transferred antibodies. Please correlate with patient's history. Performed By: #### C HRBLD #### [facility] CLIA [id number] [address] [place] [address] [place] Reagin and Treponema pallidu m IgG and IgM [Interp]on 01-02-2025 T. pallidum IgG+IgM IA Ql (S) Non-Reactive Normal Nonreactive [facility] Comment on above: Order Comment: Speci [facility] Type: BLOOD SPECIMEN Ordering Facility: [facility] Address: [address] [place] [address] Performed By: #### T SPN #### [facility] CLIA [id number] [address] [place] [address] [place] Reagin+T pallidum IgG+IgM Se rPl-Impon 01-02-2025 Reagin and Treponema pallidum IgG and IgM [Interp] Cannot exclude recent Treponemal infection if specimen collected within 7-10 days after appearance of suspect lesions or 2-3 weeks after an exposure. Clinical correlation is required. Normal [facility] Comment on above: Order Comment: Speci men Type: BLOOD SPECIMEN Ordering Facility: [facility] Address: [address] [place] [address] Performed By: #### T SPN #### [facility] CLIA [id number] [address] [place] [address] [place] T4 Free SerPl-mCncon 025 Free T4 [Mass/Vol] 0.8 ng/dL Low 0.9-1.7 [facility] Comment on above: Order Comment: Keyshai corey Type: BLOOD SPECIMEN Ordering Facility: [facility] Address: [address] [place] [address] Performed By: #### T SPN #### [facility] CLIA [id number] [address] [place] [address] [place] TSH SerPl-aCncon 01-02-2025 TSH Qn 3.580 m[IU]/L Normal 0.270-4.200 [facility] Comment on above: Order Comment: Speci men Type: BLOOD SPECIMEN Ordering Facility: [facility] Address: [address] [place] [address] Result Comment: If t he patient is , TSH reference range varies by gestational period: First Trimester (weeks 9-12): 0.180-2.990 mIU/L Second Trimester: 0.110-3.980 mIU/L Third Trimester: 0.480-4.710 mIU/L Guillermo Duke et al. A Practical Approach for the Verifications and Determination of Site- and Trimester-Specific Reference Intervals for Thyroid Function tests in . Thyroid, 2019:29:3:412-420. Morris E, et al. 2017 Guidelines of the [place] Thyroid Association for the Diagnosis and Management of Thyroid Disease during and the . Thyroid, 2017:27:3:315-389. Performed By: #### T SPN #### [facility] CLIA [id number] [address] [place] [address] [place] TYPE + SCREEN PRENATALon ABO O Normal [facility] Comment on above: Order Comment: Speci men Type: BLOOD SPECIMEN Ordering Facility: [facility] Address: [address] [place] [address] Performed By: #### T SPN #### [facility] CLIA [id number] [address] [place], [place] [address] [address] [place] Rh Nom (Bld) Positive Normal [facility] Comment on above: Order Comment: Speci men Type: BLOOD SPECIMEN Ordering Facility: [facility] Address: [address] [place] [address] Performed By: #### T SPN #### [facility] CLIA [id number] [address] [place] [address] [place] TYPE AND SCREEN EXPIRATION 01/05/2025 23:59 Normal [facility] Comment on above: Order Comment: Speci men Type: BLOOD SPECIMEN Ordering Facility: [facility] Address: [address] [place] [address] Performed By: #### T SPN #### [facility] CLIA [id number] [address] [place] [address] OF [place] CNPNon 12-25-2024 CNPN Telephone (PSYRMN) ---- LUCIE DENT ([id number]) 1990 F Date Time Provider Department 12/25/24 LAURA ROMANO PSYRMN During your visit today, we recorded the following information about you: Laura Romano LISW 12/25/2024 9:30 AM Signed Phone call to patient regarding [facility] referral. Patient did not answer, left message. [facility] SW can be reached at: [place]: [phone] [place]: Allergies As of Date: 12/25/2024 Noted Allergy Reaction SULFA (SULFONAMIDE ANTIBIOTICS) 07/21/2020 4 - Hives 12 - Shortness of Breath Date Reviewed: 12/24/2024 Reviewed by: Bayron Nunez APRN.DONOR SUPPORT TECHNICIAN - Fully Assessed Reason for Visit: Crystal Slicer - Other [7114] Cmt: [facility] referral follow up Prescriptions as of 12/25/2024 - aspirin, enteric coated (ECOTRIN LOW STRENGTH) 81 mg EC tablet Take 1 tablet by mouth once daily. - ondansetron orally disintegrating (ZOFRAN ODT) 4 mg disintegrating tablet Take 1 tablet by mouth every 8 hours as needed for nausea/vomiting. - famotidine (PEPCID) 20 mg tablet Take 1 tablet by mouth two times a day. - progesterone micronized (PROMETRIUM) 200 mg capsule Use 1 capsule vaginally two times a day. - OTC NUTRITIONAL SUPPLEMENT Take by mouth once daily. Myoinstol - Cholecalciferol, Vitamin D3, 50 mcg (2,000 unit) cap - busPIRone (BUSPAR) 5 mg tablet Take 1 tablet by mouth three times a day. - ferrous sulfate (IRON ORAL) Take by mouth. - acetaminophen (TYLENOL EXTRA STRENGTH) 500 mg tablet Take 2 tablets by mouth every 8 hours as needed for pain. - PNV/iron/omega3/fol ic acid/min (PRENAT VD-BPFM-IC-FA-OM3-M INAA ORAL) Take by mouth. Problem List As Of Date 12/25/2024 Noted Resolved with history of section, ant*10/02/2022 06/19/2024 History of reversal of tubal ligation [Z98.890] 10/02/2022 with history of ectopic , an*10/02/2022 History of delivery of macrosomal infant [Z87.5*10/02/2022 Family history of muscular dystrophy [Z82.0] 10/02/2022 Anxiety and depression [F41.9, F32.A] 10/02/2022 Supervision of other high risk pregnancies, fir*10/26/2023 06/19/2024 Obesity affecting in first trimester *10/26/2023 History of asthma [Z87.09] 10/26/2023 Asthma affecting in first trimester [*10/31/2023 06/19/2024 Fetus with trisomy 13, single gestation [O35.11*02/08/2024 06/19/2024 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*06/19/2024 12/02/2024 Thyroid antibody positive [R76.8] 06/29/2024 with uncertain viability [O36.8*12/02/2024 12/02/2024 Confirm viability, history of recurrent m*12/02/2024 12/02/2024 Subchorionic hematoma in first trimester [O41.8*12/02/2024 PTSD (post-traumatic stress disorder) [F43.10] 12/24/2024 History of headache [Z87.898] 12/24/2024 Heartburn during in first trimester (*12/24/2024 Encounter for supervision of high risk pregnanc*12/24/2024 History of delivery [Z98.891] 12/24/2024 Family history of trisomy 13 [Z82.79] 12/24/2024 History of depression [Z87.59, Z86.5*12/24/2024 Nausea and vomiting during (HCC) [O21*12/24/2024 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 EDMUNDO Villarreal, RN OB Clinical Navigator [phone] Allergies As of Date: 12/25/2024 Noted Allergy Reaction SULFA (SULFONAMIDE ANTIBIOTICS) 07/21/2020 4 - Hives 12 - Shortness of Breath Date Reviewed: 12/24/2024 Reviewed by: Bayron Nunez APRN.DONOR SUPPORT TECHNICIAN - Fully Assessed Reason for Visit: PRAF [4193] Cmt: Initial PRAF Prescriptions as of 12/25/2024 - aspirin, enteric coated (ECOTRIN LOW STRENGTH) 81 mg EC tablet Take 1 tablet by mouth once daily. - ondansetron orally disintegrating (ZOFRAN ODT) 4 mg disintegrating tablet Take 1 tablet by mouth every 8 hours as needed for nausea/vomiting. - famotidine (PEPCID) 20 mg tablet Take 1 tablet by mouth two times a day. - progesterone micronized (PROMETRIUM) 200 mg capsule Use 1 capsule vaginally two times a day. - OTC NUTRITIONAL SUPPLEMENT Take by mouth once daily. Myoinstol - Cholecalciferol, Vitamin D3, 50 mcg (2,000 unit) cap - busPIRone (BUSPAR) 5 mg tablet Take 1 tablet by mouth three times a day. - ferrous sulfate (IRON ORAL) Take by mouth. - acetaminophen (TYLENOL EXTRA STRENGTH) 500 mg tablet Take 2 tablets by mouth every 8 hours as needed for pain. - PNV/iron/omega3/fol ic acid/min (PRENAT YF-BDBB-NQ-FA-OM3-M INAA ORAL) Take by mouth. Problem List As Of Date 12/25/2024 Noted Resolved with history of section, ant*10/02/2022 06/19/2024 History of reversal of tubal ligation [Z98.890] 10/02/2022 with history of ectopic , an*10/02/2022 History of delivery of macrosomal [Z87.5*10/02/2022 Family history of muscular dystrophy [Z82.0] 10/02/2022 Anxiety and depression [F41.9, F32.A] 10/02/2022 Supervision of other high risk pregnancies, fir*10/26/2023 06/19/2024 Obesity affecting in first trimester *10/26/2023 History of asthma [Z87.09] 10/26/2023 Asthma affecting in first trimester [*10/31/2023 06/19/2024 Fetus with trisomy 13, single gestation [O35.11*02/08/2024 06/19/2024 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*06/19/2024 12/02/2024 Thyroid antibody positive [R76.8] 06/29/2024 with uncertain viability [O36.8*12/02/2024 12/02/2024 Confirm viability, history of recurrent m*12/02/2024 12/02/2024 Subchorionic hematoma in first trimester [O41.8*12/02/2024 PTSD (post-traumatic stress disorder) [F43.10] 12/24/2024 History of headache [Z87.898] 12/24/2024 Heartburn during in first trimester (*12/24/2024 Encounter for supervision of high risk pregnanc*12/24/2024 History of delivery [Z98.891] 12/24/2024 Family history of trisomy 13 [Z82.79] 12/24/2024 History of depression [Z87.59, Z86.5*12/24/2024 Nausea and vomiting during (HCC) [O21*12/24/2024 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 Mixed microbiota can be due to???urine???contam ination with skin bacteria at time of collection or presence of a long-term urinary catheter. If a new culture is needed, please consider re-education of the patient on proper midstream co llection technique or straight catheterization for???urine???colle ction. Normal [facility] Comment on above: Performed By: #### 6 30-4 ####[facility] LABCLIA [id number] [place] [address] [place] C. trachomatis+N. gonorrhoea e DNA TAMMIE+probe Ql (Unsp spec)on 12-24-2024 C. trachomatis rRNA TAMMIE+probe Ql (Unsp spec) Not detected Normal Not detected [facility] Comment on above: Order Comment: Speci men Type: BLOOD SPECIMEN Ordering Facility: [facility] Address: [address] [place] [address] Performed By: #### C HRBLD #### CLAR[facility] ILLUMINA LIMS CLIA [id number] [address] [place] [address] [place] N. gonorrhoeae rRNA TAMMIE+probe Ql (Unsp spec) Not detected Normal Not detected [facility] Comment on above: Order Comment: Speci men Type: BLOOD SPECIMEN Ordering Facility: [facility] Address: [address] [place] [address] Performed By: #### C HRBLD #### [facility] ILLUMINA LIMS CLIA [id number] [address] [place] [address] [place] HIGH RISK HUMAN PAPILLOMA ERIN (HPV), PCR FOR DETECTION AND GENOTYPINGon 12-24-2024 HPV 16 Ag Ql (Unsp spec) Not detected Normal Not detec krista [facility] Comment on above: Order Comment: Speci men Type: BLOOD SPECIMEN Ordering Facility: [facility] Address: [address] [place] [address] Performed By: #### T SPN #### [facility] CLIA [id number] [address] [place] [address] [place] HPV 18 Ag Ql (Unsp spec) Not detected Normal Not detec krista [facility] Comment on above: Order Comment: Speci men Type: BLOOD SPECIMEN Ordering Facility: [facility] Address: [address] [place] [address] Performed By: #### T SPN #### [facility] CLIA [id number] [address] [place] [address] [place] HPV 31+33+35+39+45+51+52+56+ 58+59+66+68 DNA TAMMIE+probe Ql (Cvx) Not detected Normal Not detected [facility] Comment on above: Order Comment: Speci men Type: BLOOD SPECIMEN Ordering Facility: [facility] Address: [address] [place] [address] Result Comment: High Risk HPV Other Type includes HPV types 31, 33, 35, 39, 45, 51, 52, 56, 58, 59, 66 and 68. Performed By: #### T SPN #### [facility] CLIA [id number] [address] [place] [address] [place] PAP TESTon 12-24-2024 ADEQUACY Normal [facility] Comment on above: Order Comment: Speci men Type: BLOOD SPECIMEN Ordering Facility: [facility] Address: [address] [place] [address] Result Comment: Sati sfactory for interpretation. Transformation zone present Performed By: #### T SPN #### [facility] CLIA [id number] [address] [place] [address] [place] CASE REPORT Normal [facility] Comment on above: Order Comment: Speci men Type: BLOOD SPECIMEN Ordering Facility: [facility] Address: [address] [place] [address] Result Comment: Gyne cologic Cytology Report Case: [id number] Authorizing Provider: Bayron uNnez APRN.DONOR SUPPORT TECHNICIAN Collected: 12/24/2024 10:28 AM Ordering Location: OB/Gynecology Received: 12/24/2024 11:56 AM First Screen: Gmitro, Mick, CT, ASCP Rescreen: Mecca, Dayna, CT, ASCP Specimen: Pap Test, ThinPrep, Cervix Performed By: #### T SPN #### [facility] CLIA [id number] [address] [place] [address] [place] CLINICAL HISTORY, CYTOLOGY, COAL CUTTER Routine Exam Normal [facility] Comment on above: Order Comment: Speci men Type: BLOOD SPECIMEN Ordering Facility: [facility] Address: [address] [place] [address] Performed By: #### T SPN #### [facility] CLIA [id number] [address] [place] [address] [place] FINAL PERFORMING LAB Normal [facility] Comment on above: Order Comment: Speci men Type: BLOOD SPECIMEN Ordering Facility: [facility] Address: [address] [place], [place] [id number] Result Comment: Tech nical component, scheduling coordinator screening performed at [facility], [address] [facility] [place] [address] CLIA# [id number] Diagnostic interpretation performed at [facility], [address] [place] [address] CLIA# [id number] Accounting Supervisor: Fermin Nguyen M.D. Performed By: #### T SPN #### [facility] CLIA [id number] [address] [place], [place] [address] [place] INTERPRETATION, CYTOLOGY, COAL CUTTER Normal [facility] Comment on above: Order Comment: Speci men Type: BLOOD SPECIMEN Ordering Facility: [facility] Address: [address] [place] [address] Result Comment: Nega tive for intraepithelial lesion or malignancy. at 0750 EDT Performed By: #### T SPN #### [facility] CLIA [id number] [address] [place] [address] [place] LMP 10/06/2024 Normal [facility] Comment on above: Order Comment: Speci men Type: BLOOD SPECIMEN Ordering Facility: [facility] Address: [address] [place] [address] Performed By: #### T SPN #### [facility] CLIA [id number] [address] [place], [place] [address] [place] PAP DISCLAIMER COMMENT The Pap Smear is a screening test for cervical cancer. False negative results occur with all screening tests, emphasizing the need for rescreening at recommended intervals, and clinical correlation. Normal [facility] Comment on above: Order Comment: Speci men Type: BLOOD SPECIMEN Ordering Facility: [facility] Address: [address] [place] [address] Performed By: #### T SPN #### [facility] CLIA [id number] [address] [place] [address] OF [facility] PAP PROCESS SAFETY ENGINEER COMMENT This specimen has been analyzed by the ThinPrep Imaging System, an automated imaging and review system, which assists the laboratory in evaluating cells on ThinPrep Pap tests. Following automated imaging, selected anderson from every slide are reviewed by a scheduling coordinator. Normal [facility] Comment on above: Order Comment: Speci men Type: BLOOD SPECIMEN Ordering Facility: [facility] Address: [address] [place] [address] Performed By: #### T SPN #### [facility] CLIA [id number] [address] [place] [address] [place] TRICHOMONAS VAGINALIS NAATon 12-24-2024 T. vaginalis DNA TAMMIE+probe Ql (Unsp spec) Not detected Normal Not detected [facility] Comment on above: Order Comment: Speci men Type: BLOOD SPECIMEN Ordering Facility: [facility] Address: [address] [place] [address] Performed By: #### C HRBLD #### [facility] LIMS CLIA [id number] [address] [place] [address] [place] CNPNon 12-23-2024 CNPN Telephone (OBGYWM) ---- LUCIE DENT ([id number]) 1990 F Date Time Provider Department 12/23/24 BAYRON NUNEZ During your visit today, we recorded the following information about you: Amber Zaidi MA 12/23/2024 12:15 PM Signed Attempted to contact patient to go over new ob intake using the phone number listed in chart. No answer. Voicemail unable to take messages at this time. LUL Cruz Teresa, RN 12/23/2024 2:24 PM Signed Intake questions completed Allergies As of Date: 12/23/2024 Noted Allergy Reaction SULFA (SULFONAMIDE ANTIBIOTICS) 07/21/2020 4 - Hives 12 - Shortness of Breath Date Reviewed: 12/02/2024 Reviewed by: Bayron Rae APRN.DONOR SUPPORT TECHNICIAN - Fully Assessed Reason for Visit: Appointment [186] Prescriptions as of 12/23/2024 - progesterone micronized (PROMETRIUM) 200 mg capsule Use 1 capsule vaginally two times a day. - OTC NUTRITIONAL SUPPLEMENT Take by mouth once daily. Myoinstol - ondansetron orally disintegrating (ZOFRAN ODT) 4 mg disintegrating tablet Take 1 tablet by mouth every 8 hours as needed for nausea/vomiting. - Cholecalciferol, Vitamin D3, 50 mcg (2,000 unit) cap - busPIRone (BUSPAR) 5 mg tablet Take 1 tablet by mouth three times a day. - ferrous sulfate (IRON ORAL) Take by mouth. - acetaminophen (TYLENOL EXTRA STRENGTH) 500 mg tablet Take 2 tablets by mouth every 8 hours as needed for pain. - PNV/iron/omega3/fol ic acid/min (PRENAT RH-FFLX-CM-FA-OM3-M INAA ORAL) Take by mouth. Problem List As Of Date 12/23/2024 Noted Resolved with history of section, ant*10/02/2022 06/19/2024 History of reversal of tubal ligation [Z98.890] 10/02/2022 with history of ectopic [O0*10/02/2022 06/19/2024 History of macrosomia in infant in prior pregna*10/02/2022 06/19/2024 Family history of muscular dystrophy [Z82.0] 10/02/2022 Anxiety and depression [F41.9, F32.A] 10/02/2022 Supervision of other high risk pregnancies, fir*10/26/2023 06/19/2024 Obesity in [O99.210] 10/26/2023 06/19/2024 History of asthma [Z87.09] 10/26/2023 Asthma affecting in first trimester [*10/31/2023 06/19/2024 Fetus with trisomy 13, single gestation [O35.11*02/08/2024 06/19/2024 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*06/19/2024 12/02/2024 Thyroid antibody positive [R76.8] 06/29/2024 with uncertain viability [O36.8*12/02/2024 12/02/2024 Confirm viability, history of recurrent m*12/02/2024 12/02/2024 Uterine size-date discrepancy, first trimester *12/02/2024 Subchorionic hematoma in first trimester [O41.8*12/02/2024 Early stage of [Z34.90] 12/02/2024 Encounter Status:Closed by CAMRON VALDES on 12/23/24 [facility] CNOVon 12-02-2024 CNOV Office Visit (OBGYCF) ---- LUCIE DENT ([id number]) 1990 F Date Time Provider Department 12/02/24 10:15 AM BAYRON RAE OBANALISA During your visit today, we recorded the following information about you: Pulse Blood pressure Weight Height 67/minute 125/78 96.5 kg 1.676 m Last Period 10/06/24 Veronica Cotton LPN 12/02/2024 11:09 AM Signed Pt declines pens and pencils dipper BRANDON Ho Emily, TRUST EVALUATION SUPERVISOR.DONOR SUPPORT TECHNICIAN 12/02/2024 11:09 AM Signed OB point of care ultrasound was performed. See imaging tab for details. Bayron Rae APRN.Bayron Velasquez APRN.CNP 12/02/2024 11:09 AM Signed [facility] ([facility])- Progress Office Note DOS: 12/02/24 ID: Lucie Dent is a 34 year old IUP uncertain viability at 8w1d by LMP Chief Complaint: Patient presents with: PEAC US Location: [facility] Building Subjective: HPI: Lucie Dent is a 34 year old at 8w1d by LMP, presenting with IUP uncertain viability. Certain LMP however hx of PCOS and can have irregular cycles. Hx of recurrent loss Denies bleeding or pain Endorses symptoms of nausea. Obstetric Hx: # 1 - Date: 06/30/11, Sex: Male, Weight: 4.111 kg (9 lb 1 oz), GA: 41w0d, Type: , Low Transverse, Apgar1: None, Apgar5: None, Living: Living, Comments: Induced , FTP beyond 4 cm, CPD,800cc # 2 - Date: 02/02/15, Sex: Male, Weight: 4.621 kg (10 lb 3 oz), GA: 39w0d, Type: , Other, Apgar1: None, Apgar5: None, Living: Living, Comments: RCS # 3 - Date: 11/29/17, Sex: Female, Weight: 3.742 kg (8 lb 4 oz), GA: 39w0d, Type: , Other, Apgar1: None, Apgar5: None, Living: Living, Comments: Repeat planned C Setion, BTL # 4 - Date: 09/07/21, Sex: None, Weight: None, GA: None, Type: None, Apgar1: None, Apgar5: None, Living: None, Comments: right fallopian tube # 5 - Date: 2021, Sex: None, Weight: None, GA: None, Type: None, Apgar1: None, Apgar5: None, Living: None, Comments: None # 6 - Date: 2023, Sex: None, Weight: None, GA: None, Type: None, Apgar1: None, Apgar5: None, Living: None, Comments: None # 7 - Date: 02/08/24, Sex: None, Weight: None, GA: 21w4d, Type: INDUCED , Apgar1: None, Apgar5: None, Living: None, Comments: CARLENE Gamboa # 8 - Date: 06/02/24, Sex: None, Weight: None, GA: 6w4d, Type: MISSED AB, Apgar1: None, Apgar5: None, Living: None, Comments: PUL, IUP suspected # 9 - Date: None, Sex: None, Weight: None, GA: None, Type: None, Apgar1: None, Apgar5: None, Living: None, Comments: None Patient's last menstrual period was 10/06/2024 (exact date). LMP is certain LMP was normal intention was planned? Yes Plans to continue ? Yes Ectopic risk factors - h/o ectopic : Yes, s/p right salpingectomy in 2020 - h/o adnexal surgery: Yes, tubal ligation/reversal, salpingectomy Problem list, histories and medication list updated. PAST MEDICAL HISTORY Diagnosis Date Anemia Anxiety Asthma Depression Ectopic 2021 Fetus with trisomy 13, single gestation 02/08/2024 Jose's thyroiditis History of depression PCOS (polycystic ovarian syndrome) 2019 depression PAST SURGICAL HISTORY Procedure Laterality Date DELIVERY ONLY , low transverse DELIVERY ONLY , low transverse DELIVERY ONLY , low transverse HSG LIG/TRNSXJ FLP TUBE ABDL/VAG APPR UNI/BI 2018 Tubal ligation MANUAL VACUUM ASPIRATION 06/02/2024 SALPINGECTOMY 09/07/2021 RIGHT SIDE - ectopic at [facility] TONSILLECTOMY AND ADENOIDECTOMY HX UNL LAP TUBAL ANASTOMOSIS Bilateral ALLERGIES Allergen Reactions Sulfa (Sulfonamide * Hives, Shortness of Breath ROS: See HPI General: Denies fever, chills Abdomen: No abdominal pain, nausea, vomiting, diarrhea, or constipation. No bloating, early satiety, indigestion, or increased flatulence. Bladder: Denies urinary complaints Allergies and current medication updated:Yes Objective: Physical Exam: SENSITIVE EXAMINATION CONSENT: The sensitive examination was discussed with the Patient or Patient's Authorized Broadcast Operations Director. As applicable, any other physician, advance practice provider, medical student, or other health professional student that will be observing or involved in the sensitive examination for educational or training purposes was discussed with the Patient or Authorized Broadcast Operations Director. The Patient or Authorized Broadcast Operations Director has agreed to proceed with the sensitive examination. (Sensitive examination includes inspection and/or palpation of the breasts, pelvis, prostate and anorectal regions) BP 125/78 Pulse 67 Ht 167.6 cm (5' 6) Wt 96.5 kg (212 lb 11.9 oz) LMP 10/06/2024 (Exact Date) N (more content not included)... Normal [facility] POC PRESS SERVICE READER ULTRASOUNDon 12-03-19 Indication follow up , Viability; confirm cardiac activity Impression Single intrauterine gestational sac and yolk sac, CRL indicates discrepancy from clinical dates, SANDIE 07/23/2025 based on today's ultrasound, cardiac activity is visualized, FHR 136 bpm heterogenous fluid collection adjacent to IUP; suspected subchorionic hematoma Recommendations Follow up for 1st Trimester Anatomy with Nuchal Translucency as clinically indicated if desired. Method Transabdominal ultrasound examination. View: Adequate visualization Number of embryos: 1 Dating LMP on: 10/06/2024 GA by LMP 8 w + 1 d SANDIE by LMP: 07/13/2025 Ultrasound examination on: 12/02/2024 GA by U/S based upon: CRL GA by U/S 6 w + 5 d SANDIE by U/S: 07/23/2025 Assigned: based on ultrasound (CRL), selected on 12/02/2024 Assigned GA 6 w + 5 d Assigned SANDIE: 07/23/2025 Biometry Standard FHR 136 bpm CRL 7.7 mm 6w 5d 74% Hadlock Assessment Gestational sac: visualized Location: intrauterine Yolk sac: visualized Embryo: visualized CRL 7.7 mm 6w 5d 74% Hadlock Cardiac activity: present FHR 136 bpm General Evaluation Cardiac activity present. FHR 136 bpm Performed By: Bayron Rae CNP Read By: Bayron Rae CNP MATERNAL MEDICINE [facility] Radiology Study observation (narrative) [facility] Rich 11-21-2024 DARLINE Telephone (OBGY) ---- STEWARTLUCIE VANEGAS ([id number]) 1990 F Date Time Provider Department 11/21/24 [facility] During your visit today, we recorded the following information about you: Fern Bejarano, RN 11/21/2024 2:21 PM Addendum [facility] RN Coordination Date of Referral: 11/10/2024 Reason for Referral: +HPT, previous PEAC 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 viability POCUS ~6wks Last contact: HCG: __ (11/11) US: none Ref by: Self referral. Previous PEAC pt. JS/ AB 11/10/2024 Phone Called pt, verified name and . Introduced self and PEAC. LMP: 10/06 +HPT 11/08. Denies VB or pain. Will trend HCGs per Dr Franco. Scheduled for viab pocus 11/20@915a- Marisel pending HCG trend.Reviewed SAB/bleeding and ectopic precautions, advised pt to present to the ED if she develops heavy VB saturating a pad in an hour or less for >2 hrs in a row, passing blood clots > or = to the size of a golf ball, and/or severe pain; pt verbalizes understanding. JS 11/12/2024 MyChart MCM sent JS 11/18/24 MYCHART MCM sent HH 11/21/2024 Phone Called pt to schedule f/u usn. Pt to return call at better time. Scheduled 12/02@1015a for viab pocu@1015a- EBr JS Allergies As of Date: 11/21/2024 Noted Allergy Reaction SULFA (SULFONAMIDE ANTIBIOTICS) 07/21/2020 4 - Hives 12 - Shortness of Breath Date Reviewed: 11/20/2024 Reviewed by: Keyshawn Wells MD - Fully Assessed Reason for Visit: [facility] [4090] Prescriptions as of 11/21/2024 - OTC NUTRITIONAL SUPPLEMENT Take by mouth once daily. Myoinstol - progesterone micronized (PROMETRIUM) 200 mg capsule Use 2 capsules vaginally two times a day. - L-Norgest and E Estradiol-E Estrad (SEASONIQUE) 0.15 mg-30 mcg (84)/10 mcg (7) Take 1 tablet by mouth once daily. - ibuprofen (MOTRIN) 600 mg tablet Take 1 tablet by mouth every 6 hours as needed for pain or fever (specify temp.). - ibuprofen (MOTRIN) 600 mg tablet Take 1 tablet by mouth every 6 hours as needed for pain. Take with food. - ondansetron orally disintegrating (ZOFRAN ODT) 4 mg disintegrating tablet Take 1 tablet by mouth every 8 hours as needed for nausea/vomiting. - Cholecalciferol, Vitamin D3, 50 mcg (2,000 unit) cap - busPIRone (BUSPAR) 5 mg tablet Take 1 tablet by mouth three times a day. - ferrous sulfate (IRON ORAL) Take by mouth. - acetaminophen (TYLENOL EXTRA STRENGTH) 500 mg tablet Take 2 tablets by mouth every 8 hours as needed for pain. - PNV/iron/omega3/fol ic acid/min (PRENAT UX-ZCEC-LS-FA-OM3-M INAA ORAL) Take by mouth. - sertraline HCl (ZOLOFT ORAL) Take 100 mg by mouth once daily. Pt is taking 1 and 1/2 tablets daily Problem List As Of Date 11/21/2024 Noted Resolved with history of section, ant*10/02/2022 06/19/2024 History of reversal of tubal ligation [Z98.890] 10/02/2022 with history of ectopic [O0*10/02/2022 06/19/2024 History of macrosomia in infant in prior pregna*10/02/2022 06/19/2024 Family history of muscular dystrophy [Z82.0] 10/02/2022 Anxiety and depression [F41.9, F32.A] 10/02/2022 Supervision of other high risk pregnancies, fir*10/26/2023 06/19/2024 Obesity in [O99.210] 10/26/2023 06/19/2024 History of asthma [Z87.09] 10/26/2023 Asthma affecting in first trimester [*10/31/2023 06/19/2024 Fetus with trisomy 13, single gestation [O35.11*02/08/2024 06/19/2024 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*06/19/2024 Thyroid antibody positive [R76.8] 06/29/2024 Encounter Status:Closed by FERN BEJARANO on 11/21/24 Normal [facility] CNOVon 11-20-2024 CNOV Office Visit (OBGYNC) ---- LUCIE DENT ([id number]) 1990 F Date Time Provider Department 11/20/24 9:15 AM KEYSHAWN WELLS During your visit today, we recorded the following information about you: Pulse Blood pressure Weight Last Period 82/minute 135/88 96.4 kg 10/06/24 Keyshawn Wells MD 11/20/2024 12:11 PM Signed Inside Sales Advisor Progress Note - [facility] ([facility]) Chief Complaint: Patient presents with: PEAC- Viab pocus Subjective HPI: The patient is a 34 year old at 6w3d by LMP who presents for confirmation. She self-referred to [facility] for history of SAB. Today, she reports mild nausea and fatigue. Reports mild cramping since starting progesterone. She denies vaginal bleeding or other complaints. Patient's last menstrual period was 10/06/2024 (exact date). LMP is certain LMP was normal intention was planned? Yes Plans to continue ? Yes Ectopic risk factors - h/o ectopic : Yes, s/p right salpingectomy in 2020 - IUD in place: No - h/o adnexal surgery: Yes, tubal ligation and reversal; salpingectomy as above - h/o smoking: No Histories updated. Objective BP 135/88 Pulse 82 Wt 96.4 kg (212 lb 8.4 oz) LMP 10/06/2024 (Exact Date) BMI 34.30 kg/m? Physical Exam Constitutional: Appearance: Normal appearance. Pulmonary: Effort: Pulmonary effort is normal. Neurological: Mental Status: She is alert and oriented to person, place, and time. Psychiatric: Mood and Affect: Mood normal. Behavior: Behavior normal. Labs: Lab Results Component Value Date HB 12.2 02/06/2024 PLT 252 02/06/2024 AST 17 06/02/2024 ALT 13 06/02/2024 CREAT 0.85 08/18/2024 RH Positive 02/06/2024 ABORHD O POSITIVE 06/15/2021 HCGQT 2,988.0 (H) 11/17/2024 HCGQT 1,072.0 (H) 11/15/2024 HCGQT 409.0 (H) 11/13/2024 HCG 147 (3/4) 409 (3/6) 1072 (3/8) 2988 (3/10) Imaging: US 11/20/24 Indication Confirmation of intrauterine Impression Single intrauterine gestational sac and yolk sac visualized. No pole is visualized. of uncertain prognosis. Recommendations Repeat ultrasound in at least 11 days to confirm cardiac activity. Method Transvaginal ultrasound examination. View: Adequate visualization Number of embryos: none Dating LMP on: 10/06/2024 GA by LMP 6 w + 3 d SANDIE by LMP: 07/13/2025 Assigned: based on the LMP, selected on 11/20/2024 Assigned GA 6 w + 3 d Assigned SANDIE: 07/13/2025 Biometry Extended GS 7.8 mm -/- 3% Scott YS 1.8 mm <1% Grisolia Assessment Gestational sac: visualized GS 7.8 mm -/- 3% Scott Location: intrauterine Yolk sac: visualized YS 1.8 mm <1% Grisolia Embryo: not visualized Performed By: Keyshawn Wells Read By: Keyshawn Wells Assessment / Plan 34 year old at 6w3d with IUP with uncertain prognosis. We reviewed that prognosis of this remains uncertain as no pole was visualized on ultrasound. We also discussed repeat ultrasound in 11 days, and that absence of cardiac motion at that time would be diagnostic of early loss. Follow-up: - for repeat POCUS in at least 11 days ======== Medical Decision Making: Problems: Moderate: New problem with uncertain prognosis Data: Unique test result(s) reviewed: 3+ Unique test(s) ordered: 1 Risk: Minimal: Minimal risk from testing/treatment Medical Decision Making Level: 4 - Moderate Signature: MD Marcell Green Tera, LPN 11/20/2024 9:29 AM Signed Wallpaperer Helper offered: Patient declines.Hood Faith LPN Allergies As of Date: 11/20/2024 Noted Allergy Reaction SULFA (SULFONAMIDE ANTIBIOTICS) 07/21/2020 4 - Hives 12 - Shortness of Breath Date Reviewed: 11/20/2024 Reviewed by: Keyshawn Wells MD - Fully Assessed Reason for Visit: [facility]- Viab pocus [Other] Primary Visit Diagnosis:Encounter for test, result positive [Z32.01] Order(s):POC PRESS SERVICE READER ULTRASOUND [[id number]] Order #: [id number]. #:[id number] -VIEWPOINTQty: 1 Prescriptions as of 11/20/2024 - OTC NUTRITIONAL SUPPLEMENT Take by mouth once daily. Myoinstol - progesterone micronized (PROMETRIUM) 200 mg capsule Use 2 capsules vaginally two times a day. - L-Norgest and E Estradiol-E Estrad (SEASONIQUE) 0.15 mg-30 mcg (84)/10 mcg (7) Take 1 tablet by mouth once daily. - ibuprofen (MOTRIN) 600 mg tablet Take 1 tablet by mouth every 6 hours as needed for pain or fever (specify temp.). - ibuprofen (MOTRIN) 600 mg tablet Take 1 tablet by mouth every 6 hours as needed for pain. Take with food. - ondansetron orally disintegrating (ZOFRAN ODT) 4 mg disintegrating tablet Take 1 tablet by mouth every 8 hours as needed for nausea/vomiting. - Cholecalciferol, Vitamin D3, 50 mcg (2,000 unit) cap - busPIRone (BUSPAR) 5 mg tablet Take 1 ta (more content not included)... Normal [facility] Panel Informationon 11-20 Indication Confirmation of intrauterine Impression Single intrauterine gestational sac and yolk sac visualized. No pole is visualized. of uncertain prognosis. Recommendations Repeat ultrasound in at least 11 days to confirm cardiac activity. Method Transvaginal ultrasound examination. View: Adequate visualization Number of embryos: none Dating LMP on: 10/06/2024 GA by LMP 6 w + 3 d SANDIE by LMP: 07/13/2025 Assigned: based on the LMP, selected on 11/20/2024 Assigned GA 6 w + 3 d Assigned SANDIE: 07/13/2025 Biometry Extended GS 7.8 mm -/- 3% Scott YS 1.8 mm <1% Grisolia Assessment Gestational sac: visualized GS 7.8 mm -/- 3% Scott Location: intrauterine Yolk sac: visualized YS 1.8 mm <1% Grisolia Embryo: not visualized Performed By: Keyshawn Wells Read By: Keyshawn Wells MATERNAL MEDICINE [facility] Radiology Study observation (narrative) [facility] R[facility]c 11-18-2024 CNPN Telephone (OBGY) ---- LUCIE DENT ([id number]) 1990 F Date Time Provider Department 11/18/24 [facility] During your visit today, we recorded the following information about you: Yin Malone RN 11/18/2024 11:19 AM Signed [facility] RN Coordination Date of Referral: 11/10/2024 Reason for Referral: +HPT, previous PEAC 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 viability POCUS ~6wks Last contact: HCG: __ (11/11) US: none Ref by: Self referral. Previous PEAC pt. JS/ AB 11/10/2024 Phone Called pt, verified name and . Introduced self and PEAC. LMP: 10/06 +HPT 11/08. Denies VB or pain. Will trend HCGs per Dr Franco. Scheduled for viab pocus 11/20@[address] [place] [address] pending HCG trend.Reviewed SAB/bleeding and ectopic precautions, advised pt to present to the ED if she develops heavy VB saturating a pad in an hour or less for >2 hrs in a row, passing blood clots > or = to the size of a golf ball, and/or severe pain; pt verbalizes understanding. JS 11/12/2024 MyChart MCM sent JS 11/18/24 BreathometerHART MCM sent Allergies As of Date: 11/18/2024 Noted Allergy Reaction SULFA (SULFONAMIDE ANTIBIOTICS) 07/21/2020 4 - Hives 12 - Shortness of Breath Date Reviewed: 08/18/2024 Reviewed by: Alia Rodriguez MA - Fully Assessed Prescriptions as of 11/18/2024 - progesterone micronized (PROMETRIUM) 200 mg capsule Use 2 capsules vaginally two times a day. - L-Norgest and E Estradiol-E Estrad (SEASONIQUE) 0.15 mg-30 mcg (84)/10 mcg (7) Take 1 tablet by mouth once daily. - ibuprofen (MOTRIN) 600 mg tablet Take 1 tablet by mouth every 6 hours as needed for pain or fever (specify temp.). - ibuprofen (MOTRIN) 600 mg tablet Take 1 tablet by mouth every 6 hours as needed for pain. Take with food. - ondansetron orally disintegrating (ZOFRAN ODT) 4 mg disintegrating tablet Take 1 tablet by mouth every 8 hours as needed for nausea/vomiting. - Cholecalciferol, Vitamin D3, 50 mcg (2,000 unit) cap - busPIRone (BUSPAR) 5 mg tablet Take 1 tablet by mouth three times a day. - ferrous sulfate (IRON ORAL) Take by mouth. - acetaminophen (TYLENOL EXTRA STRENGTH) 500 mg tablet Take 2 tablets by mouth every 8 hours as needed for pain. - PNV/iron/omega3/fol ic acid/min (PRENAT KL-BZVR-FM-FA-OM3-M INAA ORAL) Take by mouth. - sertraline HCl (ZOLOFT ORAL) Take 100 mg by mouth once daily. Pt is taking 1 and 1/2 tablets daily Problem List As Of Date 11/18/2024 Noted Resolved with history of section, ant*10/02/2022 06/19/2024 History of reversal of tubal ligation [Z98.890] 10/02/2022 with history of ectopic [O0*10/02/2022 06/19/2024 History of macrosomia in in prior pregna*10/02/2022 06/19/2024 Family history of muscular dystrophy [Z82.0] 10/02/2022 Anxiety and depression [F41.9, F32.A] 10/02/2022 Supervision of other high risk pregnancies, fir*10/26/2023 06/19/2024 Obesity in [O99.210] 10/26/2023 06/19/2024 History of asthma [Z87.09] 10/26/2023 Asthma affecting in first trimester [*10/31/2023 06/19/2024 Fetus with trisomy 13, single gestation [O35.11*02/08/2024 06/19/2024 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*06/19/2024 Thyroid antibody positive [R76.8] 06/29/2024 Encounter Status:Closed by YIN MALONE on 11/18/24 Normal [facility] B-HCG Ruth-Segun 5 HCG.beta subunit Qn 2988.0 m[IU]/mL High <5.0 [facility] Comment on above: Order Comment: Speci men Type: BLOOD SPECIMEN Ordering Facility: [facility] Address: [address] [place] [address] Result Comment: CHAS TITATIVE HCG NORMAL RANGES Weeks of Gestation (Weeks Since LMP) 3 Weeks (5.8-71.2 mIU/mL) 4 Weeks (9.5-750 mIU/mL) 5 Weeks (217-7138 mIU/mL) 6 Weeks (158-94249 mIU/mL) 7 Weeks (3697-621291 mIU/mL) 8 Weeks (33980-729967 mIU/mL) 9 Weeks (70835-611069 mIU/mL) 10 Weeks (74309-691134 mIU/mL) 12 Weeks (14943-010811 mIU/mL) Referenced to 4th IS of [facility] Performed By: #### C HRBLD #### [facility] CLIA [id number] [address] [place] [address] STATES OF [facility] B-HCG SerPl-aCncon 5 HCG.beta subunit Qn 1072.0 m[IU]/mL High <5.0 [facility] Comment on above: Order Comment: Speci men Type: BLOOD SPECIMEN Ordering Facility: [facility] Address: [address] [place] [address] Result Comment: CHAS TITATIVE HCG NORMAL RANGES Weeks of Gestation (Weeks Since LMP) 3 Weeks (5.8-71.2 mIU/mL) 4 Weeks (9.5-750 mIU/mL) 5 Weeks (217-7138 mIU/mL) 6 Weeks (158-54030 mIU/mL) 7 Weeks (3697-944659 mIU/mL) 8 Weeks (50090-212814 mIU/mL) 9 Weeks (74979-910445 mIU/mL) 10 Weeks (41105-100064 mIU/mL) 12 Weeks (26093-730422 mIU/mL) Referenced to 4th IS of [facility] Performed By: #### 2 1198-7 #### [facility] CLIA [id number] [address] [place] [address] [place] B-HCG SerPl-aCncon 5 HCG.beta subunit Qn 409.0 m[IU]/mL High <5.0 [facility] Comment on above: Order Comment: Speci men Type: BLOOD SPECIMEN Ordering Facility: [facility] Address: [address] [place], [place] [id number] Result Comment: CHAS TITATIVE HCG NORMAL RANGES Weeks of Gestation (Weeks Since LMP) 3 Weeks (5.8-71.2 mIU/mL) 4 Weeks (9.5-750 mIU/mL) 5 Weeks (217-7138 mIU/mL) 6 Weeks (158-95263 mIU/mL) 7 Weeks (3697-761730 mIU/mL) 8 Weeks (63440-600178 mIU/mL) 9 Weeks (51976-904297 mIU/mL) 10 Weeks (85286-942297 mIU/mL) 12 Weeks (27654-005374 mIU/mL) Referenced to 4th IS of [facility] Performed By: #### 2 1198-7 #### [facility] CLIA [id number] [address] [place] [address] OF [facility] CNPNon 11-12-2024 CNPN Telephone (OBGY) ---- LUCIE DENT ([id number]) 1990 F Date Time Provider Department 11/12/24 [facility] During your visit today, we recorded the following information about you: Fern Bejarano RN 11/12/2024 2:15 PM Signed [facility] RN Coordination Date of Referral: 11/10/2024 Reason for Referral: +HPT, previous PEAC 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 viability POCUS ~6wks Last contact: HCG: __ (11/11) US: none Ref by: Self referral. Previous [facility] pt. KWAKU/ 11/10/2024 Phone Called pt, verified name and . Introduced self and PEA. LMP: 10/06 +HPT 11/08. Denies VB or pain. Will trend HCGs per Dr Franco. Scheduled for viab pocus 11/20@[address] [place] [address] pending HCG trend.Reviewed SAB/bleeding and ectopic precautions, advised pt to present to the ED if she develops heavy VB saturating a pad in an hour or less for >2 hrs in a row, passing blood clots > or = to the size of a golf ball, and/or severe pain; pt verbalizes understanding. KWAKU 11/12/2024 Shala MCM sent Suzi Wasserman DO 11/13/2024 12:24 PM Signed Addended by: SUZI FRANCO on: 11/13/2024 12:24 PM Modules accepted: Orders Allergies As of Date: 11/12/2024 Noted Allergy Reaction SULFA (SULFONAMIDE ANTIBIOTICS) 07/21/2020 4 - Hives 12 - Shortness of Breath Date Reviewed: 08/18/2024 Reviewed by: Alia Rodriguez MA - Fully Assessed Reason for Visit: [facility] [5074] Order(s):progestero ne micronized (PROMETRIUM) 200 mg capsuleUse 2 capsules vaginally two times a day.Disp: 120 capsuleRfl: 0 Prescriptions as of 11/13/2024 - progesterone micronized (PROMETRIUM) 200 mg capsule Use 2 capsules vaginally two times a day. - L-Norgest and E Estradiol-E Estrad (SEASONIQUE) 0.15 mg-30 mcg (84)/10 mcg (7) Take 1 tablet by mouth once daily. - ibuprofen (MOTRIN) 600 mg tablet Take 1 tablet by mouth every 6 hours as needed for pain or fever (specify temp.). - ibuprofen (MOTRIN) 600 mg tablet Take 1 tablet by mouth every 6 hours as needed for pain. Take with food. - ondansetron orally disintegrating (ZOFRAN ODT) 4 mg disintegrating tablet Take 1 tablet by mouth every 8 hours as needed for nausea/vomiting. - Cholecalciferol, Vitamin D3, 50 mcg (2,000 unit) cap - busPIRone (BUSPAR) 5 mg tablet Take 1 tablet by mouth three times a day. - ferrous sulfate (IRON ORAL) Take by mouth. - acetaminophen (TYLENOL EXTRA STRENGTH) 500 mg tablet Take 2 tablets by mouth every 8 hours as needed for pain. - PNV/iron/omega3/fol ic acid/min (PRENAT AZ-EXTF-KZ-FA-OM3-M INAA ORAL) Take by mouth. - sertraline HCl (ZOLOFT ORAL) Take 100 mg by mouth once daily. Pt is taking 1 and 1/2 tablets daily Problem List As Of Date 11/12/2024 Noted Resolved with history of section, ant*10/02/2022 06/19/2024 History of reversal of tubal ligation [Z98.890] 10/02/2022 with history of ectopic [O0*10/02/2022 06/19/2024 History of macrosomia in infant in prior pregna*10/02/2022 06/19/2024 Family history of muscular dystrophy [Z82.0] 10/02/2022 Anxiety and depression [F41.9, F32.A] 10/02/2022 Supervision of other high risk pregnancies, fir*10/26/2023 06/19/2024 Obesity in [O99.210] 10/26/2023 06/19/2024 History of asthma [Z87.09] 10/26/2023 Asthma affecting in first trimester [*10/31/2023 06/19/2024 Fetus with trisomy 13, single gestation [O35.11*02/08/2024 06/19/2024 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*06/19/2024 Thyroid antibody positive [R76.8] 06/29/2024 Prescriptions ordered this encounter Disp Refills Start End PROGESTERONE MICRONIZED 200 MG CAPSU* 120 * 0 11/13/2024 Route: VAGINAL Sig: Use 2 capsules vaginally two times a day. Encounter Status:Closed by FERN BEJARANO on 11/12/24 [facility] B-HCG SerPl-aCncon HCG.beta subunit Qn 147.0 m[IU]/mL High <5.0 [facility] Comment on above: Order Comment: Speci men Type: BLOOD SPECIMEN Ordering Facility: [facility] Address: [address] [place] [address] Result Comment: CHAS TITATIVE HCG NORMAL RANGES Weeks of Gestation (Weeks Since LMP) 3 Weeks (5.8-71.2 mIU/mL) 4 Weeks (9.5-750 mIU/mL) 5 Weeks (217-7138 mIU/mL) 6 Weeks (158-40311 mIU/mL) 7 Weeks (3697-652293 mIU/mL) 8 Weeks (82236-594952 mIU/mL) 9 Weeks (17010-339065 mIU/mL) 10 Weeks (79514-390822 mIU/mL) 12 Weeks (03275-312183 mIU/mL) Referenced to 4th IS of [facility] Performed By: #### 2 1198-7 #### [facility] CLIA [id number] [address] [place] [address] [place] BETA 2 GLYCOPROTEIN, IGGon 0 11-11-2024 Beta 2 glycoprotein 1 IgG IA Qn <9 Normal <20 [facility] Comment on above: Order Comment: Speci men Type: BLOOD SPECIMENOrdering Facility: [facility] Address: [address] [place] [address] Result Comment: <20 SGU Negative 20-80 SGU Low Positive >80 SGU High Positive These results were obtained with the [employer] QUANTA Lite B2 GPI IgG DEEPTI. B2 GPI IgG values obtained with different manufacturers' assay methods may not be used interchangeably. The magnitude of the reported IgG levels cannot be correlated to an endpoint titer. Performed By: #### C ARDIG, BETA2G, BETA2M, 5076-5, CARDIM ####[facility] [id number] [place] [address] [place] BETA 2 GLYCOPROTEIN, IGMon 0 11-11-2024 Beta 2 glycoprotein 1 IgM IA Qn <9 Normal <20 [facility] Comment on above: Order Comment: Preston nicole Type: BLOOD SPECIMENOrdering Facility: [facility] Address: [address] [place] [address] Result Comment: <20 SMU Negative 20-80 SMU Low Positive >80 SMU High positive These results were obtained with the [employer] QUANTA Lite B2 GPI IgM DEEPTI. B2 GPI IgM values obtained with different manufacturers' assay methods may not be used interchangeably. The magnitude of the reported IgM levels cannot be correlated to an endpoint titer. Performed By: #### C ARDIG, BETA2G, BETA2M, 5076-5, CARDIM ####[facility] [id number] [address] [place] CARDIOLIPIN IGG ABSon 2024 Cardiolipin IgG IA Qn (S) <9.0 Normal <15.0 [facility] Comment on above: Order Comment: Preston nicole Type: BLOOD SPECIMEN Ordering Facility: [facility] Address: [address] [place] [address] Result Comment: <15 GPL Negative 15-20 GPL Indeterminate >20 GPL Positive The following results were obtained with the [employer] QUANTA Lite TUNDE IgG III DEEPTI. Cardiolipin IgG values obtained with the different manufacturers' assay methods may not be used interchangeably. The magnitude of the reported IgG levels cannot be correlated to an endpoint titer. Performed By: #### 2 1198-7 #### [facility] CLIA [id number] [address] [place] [address] OF [place] CARDIOLIPIN IGM ABSon 2024 Cardiolipin IgM IA Qn (S) <9.0 Normal <12.5 [facility] Comment on above: Order Comment: Preston corey Type: BLOOD SPECIMEN Ordering Facility: [facility] Address: [address] [place] [address] Result Comment: <12. 5 MPL Negative 12.5-20 MPL Indeterminate >20 MPL Positive The following results were obtained with the [employer] QUANTA Lite TUNDE IgM III DEEPTI. Cardiolipin IgM values obtained with the different manufacturers' assay methods may not be used interchangeably. The magnitude of the reported IgM levels cannot be correlated to an endpoint titer. ??? Performed By: #### 2 1198-7 #### [facility] CLIA [id number] [address] [place] [address] [place] Cardiolipin IgA Ser IA-aCnco n 11-11-2024 Cardiolipin IgA IA Qn (S) <9.0 Normal <12.0 [facility] Comment on above: Order Comment: Speci men Type: BLOOD SPECIMEN Ordering Facility: [facility] Address: [address] [place] [address] Result Comment: <12 APL Negative 12-20 APL Indeterminate >20 APL Positive The following results were obtained with the Mobile[employer] Lite TUNDE IgA III DEEPTI. Cardiolipin IgA values obtained with the different manufacturers' assay methods may not be used interchangeably. The magnitude of the reported IgA levels cannot be correlated to an endpoint titer. Performed By: #### 2 1198-7 #### [facility] CLIA [id number] [address] [place] [address] [place] LUPUS PANELon 11-11-2024 aPTT Coag (Bld) [Time] 42.0 s Normal 30.2-43.0 [facility] Comment on above: Order Comment: Speci corey Type: BLOOD SPECIMEN Ordering Facility: [facility] Address: [address] [place] [address] Result Comment: This test was developed, and its performance characteristics determined by the [facility] Department of Pathology and Laboratory Medicine. It has not been cleared or approved by the FDA. The [facility] Department of Pathology and Laboratory Medicine is regulated under CLIA as qualified to perform high-complexity testing. This test is used for clinical purposes. It should not be regarded as investigational or for research. Performed By: #### L [id number], LUPPL #### [facility] CLIA [id number] [address] [place] [address] [place] aPTT Coag (Bld) [Time] 38.3 s Normal 31.5-38.3 [facility] Comment on above: Order Comment: Speci men Type: BLOOD SPECIMEN Ordering Facility: [facility] Address: [address] [place] [address] Result Comment: This test was developed, and its performance characteristics determined by the [facility] Department of Pathology and Laboratory Medicine. It has not been cleared or approved by the FDA. The [facility] Department of Pathology and Laboratory Medicine is regulated under CLIA as qualified to perform high-complexity testing. This test is used for clinical purposes. It should not be regarded as investigational or for research. Performed By: #### L [id number], LUPPL #### [facility] CLIA [id number] [address] [place] [address] [place] aPTT Coag (Bld) [Time] 32.6 s Normal 24.0-35.1 [facility] [facility] Comment on above: Order Comment: Speci men Type: BLOOD SPECIMEN Ordering Facility: [facility] Address: [address] [place] [address] Performed By: #### L [id number], LUPPL #### [facility] CLIA [id number] [address] [place] [address] [place] aPTT W excess hexagonal phase phospholipid Coag (PPP) [Time] 49.1 seconds Normal 34.0-51.8 [facility] Comment on above: Order Comment: Speci men Type: BLOOD SPECIMEN Ordering Facility: [facility] Address: [address] [place] [address] Performed By: #### L [id number], LUPPL #### [facility] CLIA [id number] [address] [place] [address] [place] Coagulation factor X activated act Coag Qn (PPP) <0.10 Normal <0.10 [facility] Comment on above: Order Comment: Speci men Type: BLOOD SPECIMEN Ordering Facility: [facility] Address: [address] [place] [address] Result Comment: This test was developed, and its performance characteristics determined by the [facility] Department of Pathology and Laboratory Medicine. It has not been cleared or approved by the FDA. The [facility] Department of Pathology and Laboratory Medicine is regulated under CLIA as qualified to perform high-complexity testing. This test is used for clinical purposes. It should not be regarded as investigational or for research. Performed By: #### L [id number], LUPPL #### [facility] CLIA [id number] [address] [place] [address] [place] Delta dRVVT Coag (PPP) [Time diff] 3.0 delta seconds Normal <7.1 [facility] Comment on above: Order Comment: Speci men Type: BLOOD SPECIMEN Ordering Facility: [facility] Address: [address] [place] [address] Performed By: #### L [id number], LUPPL #### [facility] CLIA [id number] [address] [place] [address] [place] dRVVT Coag (PPP) [Time] 27.6 s Low 32.0-45.7 C [facility] Comment on above: Order Comment: Speci men Type: BLOOD SPECIMEN Ordering Facility: [facility] Address: [address] [place] [address] Performed By: #### L [id number], LUPPL #### [facility] CLIA [id number] [address] [place] [address] [place] dRVVT factor substitution immediately after 1:2 addition of normal plasma Coag (PPP) [Time] 30.8 seconds Low 32.0-45.7 [facility] Comment on above: Order Comment: Speci men Type: BLOOD SPECIMEN Ordering Facility: [facility] Address: [address] [place] [address] Performed By: #### L [id number], LUPPL #### [facility] CLIA [id number] [address] [place] [address] [place] dRVVT W excess hexagonal phase phospholipid actual/normal Coag (PPP) [Relative time] 46.1 seconds Normal 34.2-47.9 [facility] Comment on above: Order Comment: Speci men Type: BLOOD SPECIMEN Ordering Facility: [facility] Address: [address] [place] [address] Performed By: #### L [id number], LUPPL #### [facility] CLIA [id number] [address] [place] [address] [place] dRVVT/dRVVT.excess phospholipid Coag (PPP) [Ratio] 0.93 Normal <1.32 [facility] Comment on above: Order Comment: Speci men Type: BLOOD SPECIMEN Ordering Facility: [facility] Address: [address] [place] [address] Performed By: #### L [id number], LUPPL #### [facility] CLIA [id number] [address] [place] [address] [place] PLATELET NEUT 1.8 Seconds Normal <1.9 [facility] Comment on above: Order Comment: Speci men Type: BLOOD SPECIMEN Ordering Facility: [facility] Address: [address] [place] [address] Result Comment: This test was developed, and its performance characteristics determined by the [facility] Department of Pathology and Laboratory Medicine. It has not been cleared or approved by the FDA. The [facility] Department of Pathology and Laboratory Medicine is regulated under CLIA as qualified to perform high-complexity testing. This test is used for clinical purposes. It should not be regarded as investigational or for research. Performed By: #### L [id number], LUPPL #### [facility] CLIA [id number] [address] [place] [address] [place] Thrombin time Coag (PPP) [Time] <16.8 Normal <18.6 [facility] Comment on above: Order Comment: Speci men Type: BLOOD SPECIMEN Ordering Facility: [facility] Address: [address] [place] [address] Performed By: #### L [id number], LUPPL #### [facility] CLIA [id number] [address] [place], [place] [id number] [place] LUPUS PANEL INTERPon 025 Lupus anticoagulant (PPP) [Interp] Normal [facility] Comment on above: Order Comment: Specalicia nicole Type: BLOOD SPECIMEN Ordering Facility: [facility] Address: [address] [place] [address] Result Comment: Nancy dunn - see comment below. SIGNIFICANT FINDINGS: 1. Lupus Anticoagulant: NEGATIVE 2. Short DRVVT Laboratory testing was performed to evaluate the presence of a lupus anticoagulant and antiphospholipid antibodies. Both the PT and APTT results are normal. The thrombin time and anti-Xa screen were normal. No heparin, anti-Xa or direct thrombin inhibitor drug effect is present. LUPUS ANTICOAGULANT STUDIES: There is no evidence for a lupus anticoagulant or other coagulation inhibitor at this time. A short DRVVT can be due to increased activation or lack of inactivation of coagulation factors within the common pathway. Recommend thrombophilia testing if clinically indicated. ANTIPHOSPHOLIPID ANTIBODY STUDIES: The IgG, IgM and IgA anticardiolipin antibody titers were all negative. Both the IgG and IgM Beta-2 Glycoprotein I antibody titers were negative. The criteria for the diagnosis of a Lupus Anticoagulant, as detailed by the Subcommittee on Lupus Anticoagulants and Anti-Phospholipid Antibodies of the Scientific and Standardization Committee of the International Society on Thrombosis and Haemostasis (ISTH), are the following: (1) A prolonged phospholipid-dependent clotting test (screening test); (2) Evidence for an inhibitor (1:1 mix of patient:normal plasma); (3) Evidence that the inhibitor is phospholipid dependent and (4) Exclusion of specific inhibitors (ie, fVIII inhibitors, direct thrombin inhibitors, or heparin). Thromb. Haemost. 74:1185 (1994). THE FOLLOWING TESTS WERE ADDED AND ARE REPORTED SEPARATELY: APTT mixing study, Hexagonal phase phospholipid neutralization, DRVVT and PNP. Performed By: #### L [id number], LUPPL #### [facility] CLIA [id number] [address] [place] [address] [place] Pathologist name Reviewed by Kristi Kaplan DO, MPH Normal [facility] Comment on above: Order Comment: Preston nicole Type: BLOOD SPECIMEN Ordering Facility: [facility] Address: [address] [place] [address] Result Comment: Jacob ected result: Previously reported as Reviewed by Aguilar Lundberg MD on 11/18/2024 at 7:28 PM EDT. Performed By: #### L [id number], LUPPL #### [facility] CLIA [id number] [address] [place] [address] [place] PT panel Coag (PPP)on 2024 INR Coag (PPP) [Relative time] 1.0 {INR} Normal 0.9-1.3 [facility] Comment on above: Order Comment: Speci corey Type: BLOOD SPECIMEN Ordering Facility: [facility] Address: [address] [place] [address] Result Comment: Reyna min K Antagonist (VKA) Therapeutic Range: INR 2 to 3 (Target INR of 2.5) Note: For patients treated with VKA drugs, such as warfarin, the [employer] 2012 Guideline recommends a therapeutic INR range of 2 to 3 (target INR of 2.5). This recommendation includes high-risk patients with antiphospholipid syndrome with previous arterial or venous thromboembolism, current-generation mechanical or bioprosthetic aortic heart valve replacement. Note: Patients with mechanical aortic valve replacement and additional risk factors for thromboembolic events (atrial fibrillation, previous thromboembolism, LV dysfunction, hypercoagulable conditions) or an older generation mechanical AVR (i.e., ball in-Cage) or any mechanical MVR should have a INR therapeutic range of 2.5 to 3.5 (target INR of 3). Michael GH, et al. Chest 2012, 141:7S-47S Rosalina RA, et al. [facility] 2017, 70: 252-289 Performed By: #### C HRBLD #### [facility] CLIA [id number] [address] [place] [address] [place] PT Coag (PPP) [Time] 10.0 s Normal <13.1 [facility] Comment on above: Order Comment: Specalicia nicole Type: BLOOD SPECIMEN Ordering Facility: [facility] Address: [address] [place] [address] Performed By: #### C HRBLD #### [facility] CLIA [id number] [address] [place] [address] [place] aPTT PPPon 11-11-2024 aPTT Coag (PPP) [Time] 29.6 s Normal 23.0-32.4 [facility] Comment on above: Order Comment: Speci men Type: BLOOD SPECIMEN Ordering Facility: [facility] Address: [address] [place] [address] Performed By: #### C HRBLD #### [facility] CLIA [id number] [address] [place] [address] [place] CNPNon 11-10-2024 CNPN Telephone ([facility]) ---- LUCIE DENT ([id number]) 1990 F Date Time Provider Department 11/10/24 FERN BEJARANO [facility] During your visit today, we recorded the following information about you: Fern Bejarano, RN 11/10/2024 3:57 PM Addendum Early Assessment Clinic RN Coordination Date of Referral: 11/10/2024 Reason for Referral: +HPT, previous [facility] 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 viability POCUS ~6wks Last contact: HCG: __ (11/11) US: none Ref by: Self referral. Previous [facility] pt. KWAKU/ 11/10/2024 Phone Called pt, verified name and . Introduced self and [facility]. LMP: 10/06 +HPT 11/08. Denies VB or pain. Will trend HCGs per Dr Franco. Scheduled for viab pocus 11/20@[address] [place] [address] pending HCG trend.Reviewed SAB/bleeding and ectopic precautions, advised pt to present to the ED if she develops heavy VB saturating a pad in an hour or less for >2 hrs in a row, passing blood clots > or = to the size of a golf ball, and/or severe pain; pt verbalizes understanding. JS Allergies As of Date: 11/10/2024 Noted Allergy Reaction SULFA (SULFONAMIDE ANTIBIOTICS) 07/21/2020 4 - Hives 12 - Shortness of Breath Date Reviewed: 08/18/2024 Reviewed by: Alia Rodriguez MA - Fully Assessed Reason for Visit: [facility] [4090] Primary Visit Diagnosis:Encounter for test, result positive [Z32.01] Order(s):HCG QUANTITATIVE [SQHCGQT] Order #: [id number] STANDING REFERRAL TO [facility] [[id number]] Order #: [id number]: 1 Prescriptions as of 11/10/2024 - L-Norgest and E Estradiol-E Estrad (SEASONIQUE) 0.15 mg-30 mcg (84)/10 mcg (7) Take 1 tablet by mouth once daily. - ibuprofen (MOTRIN) 600 mg tablet Take 1 tablet by mouth every 6 hours as needed for pain or fever (specify temp.). - ibuprofen (MOTRIN) 600 mg tablet Take 1 tablet by mouth every 6 hours as needed for pain. Take with food. - ondansetron orally disintegrating (ZOFRAN ODT) 4 mg disintegrating tablet Take 1 tablet by mouth every 8 hours as needed for nausea/vomiting. - Cholecalciferol, Vitamin D3, 50 mcg (2,000 unit) cap - busPIRone (BUSPAR) 5 mg tablet Take 1 tablet by mouth three times a day. - ferrous sulfate (IRON ORAL) Take by mouth. - acetaminophen (TYLENOL EXTRA STRENGTH) 500 mg tablet Take 2 tablets by mouth every 8 hours as needed for pain. - PNV/iron/omega3/fol ic acid/min (PRENAT VU-MYDT-SP-FA-OM3-M INAA ORAL) Take by mouth. - sertraline HCl (ZOLOFT ORAL) Take 100 mg by mouth once daily. Pt is taking 1 and 1/2 tablets daily Problem List As Of Date 11/10/2024 Noted Resolved with history of section, ant*10/02/2022 06/19/2024 History of reversal of tubal ligation [Z98.890] 10/02/2022 with history of ectopic [O0*10/02/2022 06/19/2024 History of macrosomia in infant in prior pregna*10/02/2022 06/19/2024 Family history of muscular dystrophy [Z82.0] 10/02/2022 Anxiety and depression [F41.9, F32.A] 10/02/2022 Supervision of other high risk pregnancies, fir*10/26/2023 06/19/2024 Obesity in [O99.210] 10/26/2023 06/19/2024 History of asthma [Z87.09] 10/26/2023 Asthma affecting in first trimester [*10/31/2023 06/19/2024 Fetus with trisomy 13, single gestation [O35.11*02/08/2024 06/19/2024 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*06/19/2024 Thyroid antibody positive [R76.8] 06/29/2024 Encounter Status:Closed by FERN BEJARANO on 11/10/24 Normal [facility] DALE BY IFA WITH REFLEXon Nuclear Ab Ql (S) Negative Normal Negative [facility] Comment on above: Order Comment: Speci men Type: BLOOD SPECIMEN Ordering Facility: [facility] Address: [address] [place] [address] Result Comment: Anti -nuclear antibody test is used as an aid in diagnosis of systemic autoimmune diseases. Where positive and clinically warranted, follow-up using disease-specific testing is recommended. Low positive titers are not uncommon with advanced age, certain chronic infections, and malignancies among others. Test methodology: Indirect fluorescence immunoassay (IFA) using HEp-2 cells. Performed By: #### A NAIFR #### [facility] CLIA [id number] [address] [place] [address] [place] C-REACTIVE PROTEINon 024 CRP [Mass/Vol] mg/dL NINF - 0.9 mg/dL [facility] C3 SerPl-mCncon 08-18-2024 Complement C3 [Mass/Vol] 132 mg/dL Normal 86-166 [facility] Comment on above: Order Comment: Preston nicole Type: BLOOD SPECIMEN Ordering Facility: [facility] Address: [address] [place] [address] Performed By: #### 4 485-9, 4498-2 #### [facility] CLIA [id number] [address] [place] [address] [place] C4 SerPl-mCncon 08-18-2024 Complement C4 [Mass/Vol] 22 mg/dL Normal 13-46 [facility] Comment on above: Order Comment: Preston nicole Type: BLOOD SPECIMEN Ordering Facility: [facility] Address: [address] [place] [address] Performed By: #### 4 485-9, 4498-2 #### [facility] CLIA [id number] [address] [place] [address] [place] CNOVon 08-18-2024 CNOV Office Visit ([facility]) ---- LUCIE DENT ([id number]) 1990 F Date Time Provider Department 08/18/24 1:00 PM [facility]UM[facility] During your visit today, we recorded the following information about you: Pulse Respiration Blood pressure Weight 73/minute 16/minute 115/81 95.6 kg Autumn Holt MD 08/18/2024 1:55 PM Signed [facility]ology Outpatient [facility] Date of Service: 08/18/2024 Patient: Lucie Dent Medical Record: [id number] Primary Care Physician: Maryjo Anguiano, DONOR SUPPORT TECHNICIAN, DONOR SUPPORT TECHNICIAN Last Rheumatology visit: None at [facility] Referring Provider: Suzi Franco [address] [facility] [address] Peguero for an opinion regarding indeterminate lupus anticoagulant. My final recommendations will be communicated back to the requesting physician by way of shared Medical record or letter to requesting physician via US mail. History of Present Illness Lucie Dent is a 34 year old White female who presents on 08/18/2024 for an in-person visit for evaluation of New Patient and Abnormal Lab. She is currently taking ibuprofen. HISTORY OF PRESENT ILLNESS This patient presents with complaints of multiple miscarriages and and indeterminate lupus anticoagulant study. Patient does states that she has had multiple miscarriages in the past nearly 2 years. 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 All other antibody profiling such as the anticardiolipin antibody and beta-2 glycoprotein antibodies are normal and noncontributory. Upon further questioning the patient has a grandmother with a definitive diagnosis of lupus. 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 He has spontaneous oral ulcers are multiple at times when they do occur particularly on the gumline. She has daily joint stiffness worse in the morning can last all day. The joint stiffness can escalate after periods of inactivity such as sitting for half an hour or more. She denies any jatinder joint swelling. However she does retain fluid to a subtle degree in her feet and ankles. She denies any typical rash of lupus or other connective tissue disease. She has no other personal history of clotting abnormalities such as DVT/PE or arterial clots previously. Patient-Entered Data PAIN EVALUATION No data found in the last 1 encounters. PROMIS Assessments 08/18/2024 06/08/2021 PROMIS Assessments Physical Health Percentile 41 78 Mental Health Percentile 26 73 Pain Score 4 5 Pain Interference Percentile 34 Fatigue Percentile 10 Physical Function Percentile 69 RAPID 3 [place] Activities of Daily Living 08/18/2024 9:39 AM Dress self? Without ANY difficulty Get in and out of bed? Without ANY difficulty Walk outdoors? Without ANY difficulty Wash and dry body? Without ANY difficulty Get in and out of car? Without ANY difficulty RAPID 3 Disease Activity Weighed Score Levels: 0 - 1: Near Remission 1.3 - 2.0: Low Severity 2.3 - 4.0: Moderate Severity 4.3 - 10.0: High Severity 08/18/2024 RAPID-3 Weighed Score RAPID 3 Weighed Score 1 (Minimal to no symptoms) Review of Systems Review of Systems CONSTITUTION: Negative for: Fever and Recent weight change HEENT: Positive for: Mouth sores Negative for: Nosebleeds, Trouble swallowing and Dry mouth RESPIRATORY: Negative for: Cough, Shortness of breath and Pain with breathing GASTROINTESTINAL: Positive for: Diarrhea and Heartburn Negative for: Melena and Abdominal pain MUSCULOSKELETAL: Positive for: Arthralgias, Myalgias and Morning Joint Stiffness Negative for: Muscle weakness and Joint swelling NEUROLOGICAL: Positive for: Headaches, Numbness and Memory loss SKIN: Positive for: Hair loss and Nail changes Negative for: Rash and Skin changes EYES: Positive for: Eye redness, Eye dryness and Visual disturbance Negative for: Eye pain CARDIOVASCULAR: Positive for: Leg swelling Negative for: Chest pain GENITOURINARY: Negative for: Dysuria and Hematuria HEMATOLOGIC/LYMPHAT IC: Positive for: Swollen glands All other reviewed and negative other than HPI. Past Medical History PAST MEDICAL HISTORY Diagnosis Date Anemia Anxiety Asthma Depression Ectopic 2021 Fetus with trisomy 13, single gestation 02/08/2024 History of depression PCOS (polycystic ovarian syndrome) 2020 depression Past Surgical History PAST SURGICAL HISTORY Procedure Laterality Date DELIVERY ONLY , low transverse DELIVERY ONLY (more content not included)... Normal [facility] CREATININE BLDon 08-18-2024 Creatinine [Mass/Vol] 0.85 mg/dL 0.58 - 0.96 mg/dL [facility] GFR/1.73 sq M.predicted among non-blacks MDRD (S/P/Bld) [Vol rate/Area] 93 mL/min/{1.73_m2} - PINF [facility] Comment on above: Estimated Glomerular Filtration Rate (eGFR) is calculated using the 2020 CKD-EPI creatinine equation. This equation utilizes serum creatinine, sex, and age as parameters. The creatinine assay has traceable calibration to isotope dilution-mass spectrometry. Refer to KDIGO guidelines for clinical interpretation. In patients with unstable renal function, e.g. those with acute kidney injury, the eGFR may not accurately reflect actual GFR. Creatinine [Mass/Vol] 0.85 mg/dL Normal 0.58-0.96 [facility] Comment on above: Order Comment: Preston nicole Type: BLOOD SPECIMEN Ordering Facility: [facility] Address: [address] [place] [address] Performed By: #### Ysabel [id number] #### [facility] CLIA [id number] OF [facility] Creatinine and Glomerular filtration rate.predicted panel (S/P/Bld) 93 mL/min/1.73m??? Normal >=60 [facility] Comment on above: Order Comment: Preston nicole Type: BLOOD SPECIMEN Ordering Facility: [facility] Address: [address] [place] [address] Result Comment: Radha mated Glomerular Filtration Rate (eGFR) is calculated using the 2020 CKD-EPI creatinine equation. This equation utilizes serum creatinine, sex, and age as parameters. The creatinine assay has traceable calibration to isotope dilution-mass spectrometry. Refer to KDIGO guidelines for clinical interpretation. In patients with unstable renal function, e.g. those with acute kidney injury, the eGFR may not accurately reflect actual GFR. Performed By: #### Ysabel [id number] #### [facility] CLIA [id number] [place] CRP SerPl-mCncon 08-18-2024 CRP [Mass/Vol] mg/L Normal <0.9 [facility] Comment on above: Order Comment: Preston nicole Type: BLOOD SPECIMEN Ordering Facility: [facility] Address: [address] [place] [address] Performed By: #### Ysabel LANDA1988-01 #### [facility] CLIA [id number] [address] [place] [address] [place] ESR Westergren method (Bld) [Velocity]on 08-18-2024 ESR (Bld) [Velocity] 13 mm/h Normal 0-20 [facility] Comment on above: Order Comment: Preston nicole Type: BLOOD SPECIMEN Ordering Facility: [facility] Address: [address] [place] [address] Performed By: #### 4 537-7 #### [facility] CLIA [id number] [address] [place] [address] [place] No Panel Informationon 08-18 Interpretation and review of laboratory results Normal [facility] Prot/Creat Uron 08-18-2024 Protein/Creatinine (U) [Mass ratio] mg/g Normal <0.15 [facility] Comment on above: Order Comment: Speci men Type: URINE SPECIMEN Ordering Facility: [facility] Address: [address] [place] [address] Result Comment: Adul t Proteinuria Categories: <0.15 mg/mg is considered normal to mildly increased 0.15 - 0.50 mg/mg is considered moderately increased >0.50 mg/mg is considered severely increased KDIGO. (2013). KDIGO 2012 Clinical Practice Guideline for the Evaluation and Management of Chronic Kidney Disease. Official Journal of the International Society of Nephrology, 3(1), 1-150. Performed By: #### 2 890-2 #### [facility] CLIA [id number] [address] [place] [address] [place] Protein/Creatinine (U) [Mass ratio]on 08-18-2024 Creatinine (U) [Mass/Vol] 33.1 mg/dL Normal 20.0-300.0 [facility] Comment on above: Order Comment: Speci men Type: URINE SPECIMEN Ordering Facility: [facility] Address: [address] [place] [address] Performed By: #### 2 890-2 #### [facility] CLIA [id number] [address] [place] [address] [place] Protein (U) [Mass/Vol] mg/dL Normal 0-20 [facility] Comment on above: Order Comment: Speci men Type: URINE SPECIMEN Ordering Facility: [facility] Address: [address] [place] [address] Performed By: #### 2 890-2 #### [facility] CLIA [id number] [address] [place], [place] [address] [place], [place] [address] [place] Urinalysis complete panel (U )on 08-18-2024 Bilirubin Ql (U) Negative Negative [facility] Clarity (Unsp spec) Clear Clear [facility] Color (U) Colorless yellow [facility] Epithelial cells LM.HPF (Urine sed) [#/Area] Few /HPF [facility] Glucose Test strip (U) [Mass/Vol] Negative Trace, Negative [facility] Hemoglobin Ql (U) Negative Negative, Trace Cl [facility] Ketones Ql (U) Negative Negative, Trace [facility] Leukocyte esterase Test strip Ql (U) Negative Negative, 25 Ct/uL [facility] Nitrite Ql (U) Negative Negative [facility] pH (U) 7.0 [pH] 5.0 - 8.0 [facility] Protein (U) [Mass/Vol] Negative Trace, Negati ve [facility] RBC LM.HPF (Urine sed) [#/Area] 0-3 /HPF 0-3 /HPF [facility] Specific gravity (U) [Rel density] 1.006 1.005 - 1.030 [facility] Urobilinogen Ql (U) Normal Normal [facility] WBC LM.HPF (Urine sed) [#/Area] 0-5 /HPF 0-5 /HPF [facility] Bilirubin Ql (U) Negative Normal Negative [facility] Comment on above: Order Comment: Speci men Type: URINE SPECIMEN Ordering Facility: [facility] Address: [address] [place] [address] Performed By: #### 2 4356-8 #### [facility] [place] [id number] [address] [place] [address] [place] Clarity (Unsp spec) Clear Normal Clear [facility] Comment on above: Order Comment: Speci men Type: URINE SPECIMEN Ordering Facility: [facility] Address: [address] [place] [address] Performed By: #### 2 4356-8 #### [facility] IA [id number] [address] [place] [address] [place] Color (U) Colorless Normal yellow [facility] Comment on above: Order Comment: Speci men Type: URINE SPECIMEN Ordering Facility: [facility] Address: [address] [place] [address] Performed By: #### 2 4356-8 #### [facility] IA [id number] [address] [place] [address] [place] Epithelial cells LM.HPF (Urine sed) [#/Area] Few Normal [facility] Comment on above: Order Comment: Speci men Type: URINE SPECIMEN Ordering Facility: [facility] Address: [address] [place] [address] Performed By: #### 2 4356-8 #### [facility] IA [id number] [address] [place] [address] [place] Glucose Test strip (U) [Mass/Vol] Negative Normal Trace, Negative [facility] Comment on above: Order Comment: Speci men Type: URINE SPECIMEN Ordering Facility: [facility] Address: [address] [place] [address] Performed By: #### 2 4356-8 #### [facility] IA [id number] [address] [place] [address] [place] Hemoglobin Ql (U) Negative Normal Negative, Trace [facility] Comment on above: Order Comment: Speci men Type: URINE SPECIMEN Ordering Facility: [facility] Address: [address] [place] [address] Performed By: #### 2 4356-8 #### [facility] IA [id number] [place] [address] [place] Ketones Ql (U) Negative Normal Negative, Trace [facility] Comment on above: Order Comment: Speci men Type: URINE SPECIMEN Ordering Facility: [facility] Address: [address] [place] [address] Performed By: #### 2 4356-8 #### [facility] IA [id number] [address] [place] [address] [place] Leukocyte esterase Test strip Ql (U) Negative Normal Negative, 25 Ct/uL [facility] Comment on above: Order Comment: Speci men Type: URINE SPECIMEN Ordering Facility: [facility] Address: [address] [place] [address] Performed By: #### 2 4356-8 #### [facility] IA [id number] [address] [place] [address] [place] Nitrite Ql (U) Negative Normal Negative [facility] Comment on above: Order Comment: Speci men Type: URINE SPECIMEN Ordering Facility: [facility] Address: [address] [place] [address] Performed By: #### 2 4356-8 #### [facility] IA [id number] [address] [place] [address] [place] pH (U) 7.0 [pH] Normal 5.0-8.0 [facility] Comment on above: Order Comment: Speci men Type: URINE SPECIMEN Ordering Facility: [facility] Address: [address] [place] [address] Performed By: #### 2 4356-8 #### [facility] IA [id number] [address] [place] [address] [place] Protein (U) [Mass/Vol] Negative Normal Trace, Negati ve [facility] Comment on above: Order Comment: Speci men Type: URINE SPECIMEN Ordering Facility: [facility] Address: [address] [place] [address] Performed By: #### 2 4356-8 #### [facility] IA [id number] [address] [place] [address] [place] RBC LM.HPF (Urine sed) [#/Area] 0-3 /HPF Normal 0-3 /HPF [facility] Comment on above: Order Comment: Speci men Type: URINE SPECIMEN Ordering Facility: [facility] Address: [address] [place] [address] Performed By: #### 2 4356-8 #### [facility] IA [id number] [address] [place] [address] [place] Specific gravity (U) [Rel density] 1.006 Normal 1.005-1.030 [facility] Comment on above: Order Comment: Speci men Type: URINE SPECIMEN Ordering Facility: [facility] Address: [address] [place] [address] Performed By: #### 2 4356-8 #### [facility] CLIA [id number] [address] [place], [place] [id number] [place] [address] [place] Urobilinogen Ql (U) Normal Normal Normal [facility] Comment on above: Order Comment: Speci men Type: URINE SPECIMEN Ordering Facility: [facility] Address: [address] [place] [address] Performed By: #### 2 4356-8 #### [facility] CLIA [id number] [address] [place] [address] [place] WBC LM.HPF (Urine sed) [#/Area] 0-5 /HPF Normal 0-5 /HPF [facility] Comment on above: Order Comment: Speci men Type: URINE SPECIMEN Ordering Facility: [facility] Address: [address] [place] [address] Performed By: #### 2 4356-8 #### [facility] CLIA [id number] [address] [place] CBC + DIFFon 07-31-2024 Baso # 0.02 x10EE3/UL Normal 0.00 - 0.10 [facility] Comment on above: Performed By: #### 2 67757 #### [place] [address] Basophils/100 WBC (Bld) 0.4 % Normal 0.0 - 2.0 [facility] Comment on above: Performed By: #### 2 32899 #### [place] [address] CBC + DIFF Normal [facility] Comment on above: Result Comment: CBC- COMPLETE BLOOD COUNT Performed By: #### 2 68802 #### [facility],[address],[place] [address] EO # 0.07 x10EE3/UL Normal 0.00 - 0.50 [facility] Comment on above: Performed By: #### 2 72658 #### [facility],[address] [place], [place] [address] Eosinophils/100 WBC (Bld) 1.3 % Normal 0.0 - 7.0 [facility] Comment on above: Performed By: #### 2 32099 #### [facility],[address] [place] [address] Erythrocyte distribution width (RBC) [Ratio] 12.7 % Normal 12.0 - 15.6 [facility] Comment on above: Performed By: #### 2 39743 #### [facility],[address] [place] [address] Hematocrit (Bld) [Volume fraction] 39.0 % Normal 34.0 - 46.0 [facility] Comment on above: Performed By: #### 2 48663 #### [facility],[address] [place] [address] Hemoglobin (Bld) [Mass/Vol] 12.7 g/dL Normal 12.0 - 16.0 [facility] Comment on above: Performed By: #### 2 31559 #### [facility],[address] [place] [address] Lymph # 1.20 x10EE3/UL Normal 0.80 - 2.80 [facility] Comment on above: Performed By: #### 2 75580 #### [facility],[address] [place], [place] [id number] Lymphocytes/100 WBC (Bld) 21.6 % Normal 20.0 - 45.0 [facility] Comment on above: Performed By: #### 2 21399 #### [facility],[address] [place], [place] [address] MANUAL DIFF N/A Normal [facility] Comment on above: Performed By: #### 2 69974 #### [facility],[address] [place] [address] MCH (RBC) [Entitic mass] 28 pg Normal 27 - 33 [facility] Comment on above: Performed By: #### 2 87127 #### [facility],[address] [place] [address] MCHC 33 X10 3 Normal 32 - 36 [facility] Comment on above: Performed By: #### 2 39554 #### [facility],[address] [place] [address] MCV (RBC) [Entitic vol] 87 fL Normal 80 - 99 [facility] Comment on above: Performed By: #### 2 94928 #### [facility],[address] [place] [address] Manatee # 0.34 x10EE3/UL Normal 0.20 - 1.00 [facility] Comment on above: Performed By: #### 2 59962 #### [facility],[address] [place] [address] MONOS % 6.2 % Normal 0.0 - 10.0 [facility] Comment on above: Performed By: #### 2 97350 #### [facility],[address] [place] [address] Morphology Ronal (Bld) [Interp] N/A Normal [facility] Comment on above: Performed By: #### 2 80028 #### [facility],[address] [place] [address] Neut # 3.92 x10EE3/UL Normal 1.50 - 7.10 [facility] Comment on above: Performed By: #### 2 10851 #### [facility],[address] [place] [address] Neutrophils/100 WBC (Bld) 70.6 % Normal 46.0 - 76.0 [facility] Comment on above: Performed By: #### 2 68135 #### [facility],[address] [place], [place] [address] PLATELET 237 x10EE3/UL Normal 150 - 450 [facility] Comment on above: Performed By: #### 2 26328 #### [facility],[address] [place] [address] Platelet mean volume (Bld) [Entitic vol] 8.5 fL Normal 6.6 - 10.5 [facility] Comment on above: Result Comment: AUTO MATED DIFFERENTIAL Performed By: #### 2 93670 #### [facility],[address] [place] [address] RBC 4.49 x 10EE6/UL Normal 4.10 - 5.30 [facility] Comment on above: Performed By: #### 2 27469 #### [facility],[address] [place] [address] WBC 5.6 x 10EE3/UL Normal 4.5 - 10.8 [facility] Comment on above: Performed By: #### 2 35706 #### [facility],[address] [place], [place] [address] CMP with eGFRon 07-31-2024 AGE 34 years Normal [facility] Comment on above: Performed By: #### 2 79800 #### [facility],[address] [place] [address] Albumin [Mass/Vol] 3.6 g/dL Normal 3.4 - 5.0 [facility] Comment on above: Performed By: #### 2 41481 #### [facility],[address] [place] [address] Albumin/Globulin [Mass ratio] 1.1 {ratio} Normal 0.9 - 1.6 [facility] Comment on above: Performed By: #### 2 58658 #### [facility],[address] [place] [address] ALK PHOS 43 U/L Low 46 - 116 [facility] Comment on above: Performed By: #### 2 53792 #### [facility],[address] [place] [address] ALT [Catalytic activity/Vol] 16 U/L Normal 16 - 63 [facility] Comment on above: Performed By: #### 2 07251 #### [facility],[address] [place] [address] Anion gap [Moles/Vol] 13 mmol/L Normal 10 - 20 [facility] Comment on above: Performed By: #### 2 87538 #### [facility],[address] [place] [address] AST [Catalytic activity/Vol] 12 U/L Low 13 - 39 [facility] Comment on above: Performed By: #### 2 00281 #### [facility],[address] [place], [place] [address] B/C RATIO 15 ratio Normal 0 - 30 [facility] Comment on above: Performed By: #### 2 33465 #### [facility],[address] [place] [address] Bilirubin [Mass/Vol] 0.3 mg/dL Normal 0.2 - 1.0 [facility] Comment on above: Performed By: #### 2 84199 #### [facility],[address] [place] [address] Calcium [Mass/Vol] 8.9 mg/dL Normal 8.5 - 10.1 [facility] Comment on above: Performed By: #### 2 60293 #### [facility],[address] [place] [address] Chloride [Moles/Vol] 108 mmol/L High 98 - 107 [facility] Comment on above: Performed By: #### 2 23447 #### [facility],[address] [place] [address] CMP with eGFR Normal [facility] Comment on above: Result Comment: COMP REHENSIVE METABOLIC PANEL Performed By: #### 2 96726 #### [facility],[address] [place] [address] CO2 [Moles/Vol] 26.8 mmol/L Normal 21.0 - 32.0 [facility] Comment on above: Performed By: #### 2 71273 #### [facility],[address] [place] [address] Creatinine [Mass/Vol] 0.95 mg/dL Normal 0.55 - 1.02 [facility] Comment on above: Performed By: #### 2 86682 #### [facility],[address] [place] [address] GFR/1.73 sq M.predicted among non-blacks MDRD (S/P/Bld) [Vol rate/Area] mL/min/{1.73_m2} Normal 60 - 999 [facility] Comment on above: Performed By: #### 2 08600 #### [facility],[address] [place] [address] Result Comment: ACCO RDING TO THE NATIONAL KIDNEY DISEASE EDUCATION PROGRAM(NKDE), A NORMAL eGFR IS A VALUE GREATER THAN OR EQUAL TO 60 ML/MIN/1.73 SQ METERS. CHRONIC KIDNEY DISEASE: <60mL/MIN/1.73 SQ METERS KIDNEY FAILURE: <15mL/MIN/1.73 SQ METERS THIS TEST SHOULD ONLY BE USED FOR PATIENTS 18 YEARS OF AGE AND OLDER. Globulin (S) [Mass/Vol] 3.3 g/dL Normal 1.5 - 3.8 [facility] Comment on above: Performed By: #### 2 74459 #### [facility],[address] [place] [address] Glucose [Mass/Vol] 104 mg/dL Normal 74 - 106 [facility] Comment on above: Performed By: #### 2 82574 #### [facility],[address] [place] [address]69 Potassium [Moles/Vol] 4.6 mmol/L Normal 3.5 - 5.1 [facility] Comment on above: Performed By: #### 2 44522 #### [facility],[address] [place] [address] Protein [Mass/Vol] 6.9 g/dL Normal 6.4 - 8.2 [facility] Comment on above: Performed By: #### 2 21335 #### [facility],[address] [place] [address] Sodium [Moles/Vol] 143 mmol/L Normal 136 - 145 [facility] Comment on above: Performed By: #### 2 00924 #### [facility],[address] [place] [address] Urea nitrogen [Mass/Vol] 14 mg/dL Normal 7 - 18 [facility] Comment on above: Performed By: #### 2 15992 #### [facility],[address] [place] [address] LIPID PROFILEon 07-31-2024 Cholesterol [Mass/Vol] 215 mg/dL Normal 0 - 240 [facility] Comment on above: Performed By: #### 2 94303 #### [facility],[address] [place] [address] Cholesterol in HDL [Mass/Vol] 45 mg/dL Normal 40 - 60 [facility] Comment on above: Performed By: #### 2 77419 #### [facility],[address] [place] [address] Cholesterol in LDL [Mass/Vol] 153 mg/dL High 0 - 129 [facility] Comment on above: Performed By: #### 2 96272 #### [facility],[address] [place] [address] Cholesterol.total/Choles terol in HDL [Mass ratio] 4.8 {ratio} Normal 0.0 - 5.0 [facility] Comment on above: Performed By: #### 2 78473 #### [facility],[address],[place] [address] Lipid 1996 panel Normal [facility] Comment on above: Result Comment: LIPI D PROFILE Performed By: #### 2 36334 #### [facility],[address] [place] [address] Triglyceride [Mass/Vol] 86 mg/dL Normal 0 - 150 [facility] Comment on above: Performed By: #### 2 67260 #### [facility],[address] [place] [address] VITAMIN D, 25 HYDROXYon 11- VitD 34.40 ng/mL Normal 30.00 - 100 [facility] Comment on above: Result Comment: 25-O HD3 indicates both endogenous production and supplementation. 25-OHD2 is an indicator of exogenous sources, such as diet or supplementation. Therapy is based on measurement of Total 25-OHD, with levels <20 ng/mL indicative of Vitamin D deficiency, while levels between 20 ng/mL and 30 ng/mL suggest insufficiency. Optimal levels are >=30ng/mL. Vitamin D, 25-OH D3 Not Established Vitamin D, 25-OH D2 Not Established Performed By: #### 2 63694 #### [address] [address] BETA 2 GLYCOPROTEIN, IGGon 1 Beta 2 glycoprotein 1 IgG IA Qn <9 Normal <20 [facility] Comment on above: Order Comment: Speci men Type: BLOOD SPECIMENOrdering Facility: [facility] Address: [address] [place] [address] Result Comment: <20 SGU Negative 20-80 SGU Low Positive >80 SGU High Positive These results were obtained with the [employer] QUANTA Lite B2 GPI IgG DEEPTI. B2 GPI IgG values obtained with different manufacturers' assay methods may not be used interchangeably. The magnitude of the reported IgG levels cannot be correlated to an endpoint titer. Performed By: #### 5 076-5, BETA2M, CARDIG, CARDIM, BETA2G ####[facility] [id number] [address] [place] Order Comment: Speci men Type: BLOOD SPECIMEN Ordering Facility: [facility] Address: [address] [place] [address] Performed By: #### M ICRO #### [facility] CLIA [id number] [address] [place] [address] [place] BETA 2 GLYCOPROTEIN, IGMon 1 Beta 2 glycoprotein 1 IgM IA Qn <9 Normal <20 [facility] Comment on above: Order Comment: Speci men Type: BLOOD SPECIMENOrdering Facility: [facility] Address: [address] [place] [address] Result Comment: <20 [facility]U Negative 20-80 [facility] Low Positive >80 [facility] High positive These results were obtained with the [email or web address] QUANTA Lite B2 GPI IgM DEEPTI. B2 GPI IgM values obtained with different manufacturers' assay methods may not be used interchangeably. The magnitude of the reported IgM levels cannot be correlated to an endpoint titer. Performed By: #### 5 076-5, BETA2M, CARDIG, CARDIM, BETA2G ####[facility] [id number] [place] [address] [place] Order Comment: Specalicia nicole Type: BLOOD SPECIMEN Ordering Facility: [facility] Address: [address] [place] [address] Performed By: #### M ICRO #### [facility] CLIA [id number] [address] [place] [address] [place] CARDIOLIPIN IGG ABSon 2023 Cardiolipin IgG IA Qn (S) 13.0 GPL Normal <15.0 [facility] Comment on above: Order Comment: Specalicia nicole Type: BLOOD SPECIMENOrdering Facility: [facility] Address: [address] [place] [address] Result Comment: <15 GPL Negative 15-20 GPL Indeterminate >20 GPL Positive The following results were obtained with the [employer] QUANTA Lite TUNDE IgG III DEEPTI. Cardiolipin IgG values obtained with the different manufacturers' assay methods may not be used interchangeably. The magnitude of the reported IgG levels cannot be correlated to an endpoint titer. Performed By: #### 5 076-5, BETA2M, CARDIG, CARDIM, BETA2G ####[facility] [id number] [address] Cardiolipin IgG IA Qn (S) 12.2 GPL Normal <15.0 [facility] Comment on above: Order Comment: Speci men Type: BLOOD SPECIMEN Ordering Facility: [facility] Address: [address] [place] [address] Result Comment: <15 GPL Negative 15-20 GPL Indeterminate >20 GPL Positive The following results were obtained with the [employer] QUANTA Lite TUNDE IgG III DEEPTI. Cardiolipin IgG values obtained with the different manufacturers' assay methods may not be used interchangeably. The magnitude of the reported IgG levels cannot be correlated to an endpoint titer. Performed By: #### M ICRO #### [facility] CLIA [id number] [address] [place] [address] CARDIOLIPIN IGM ABSon 2023 Cardiolipin IgM IA Qn (S) <9.0 Normal <12.5 [facility] Comment on above: Order Comment: Preston nicole Type: BLOOD SPECIMENOrdering Facility: [facility] Address: [address] [place] [address] Result Comment: <12. 5 MPL Negative 12.5-20 MPL Indeterminate >20 MPL Positive The following results were obtained with the [employer] QUANTA Lite TUNDE IgM III DEEPTI. Cardiolipin IgM values obtained with the different manufacturers' assay methods may not be used interchangeably. The magnitude of the reported IgM levels cannot be correlated to an endpoint titer. ??? Performed By: #### 5 076-5, BETA2M, JANN, BRITTON, BETA2G ####[facility] [id number] [address] [place] Order Comment: Preston nicole Type: BLOOD SPECIMEN Ordering Facility: [facility] Address: [address] [place] [address] Performed By: #### M ICRO #### [facility] CLIA [id number] [address] [place] [address] [place] CHROM WALKER PERIPHon 024 BLOOD CYTOGENETICS CHROMO Normal [facility] [facility] Comment on above: Order Comment: Speci men Type: BLOOD SPECIMEN Ordering Facility: [facility] Address: [address] [place] [address] Result Comment: Vicente starr Accession Number: [id number] Doctor: Suzi Franco Clinical diagnosis: Recurrent loss Specimen Type: Peripheral blood Received Date: 06/28/2024 Number of cells counted: 20 Number of cells analyzed: 5 Number of cells karyotyped: 5 Banding resolution: 550 Banding method: G-banding DIAGNOSIS: 46,XX INTERPRETATION: Normal, female karyotype COMMENT: Cytogenetic analysis on synchronized and unsynchronized PHA- stimulated, peripheral blood cultures showed a normal, female karyotype (46,XX). There was no significant numerical chromosome abnormality and no structural change detected within the limits of resolution. As reviewed by Leonarda Middleton, Ph.D. Performed by [facility] Molecular Pathology and Cytogenomics ([id number]), Division of Laboratory Medicine Autumn Ignacio Department of Pathology & Laboratory Medicine, Diagnostics [place] [id number] [place] [address]. [place] [address] Toll free: Performed By: #### C HRBLD #### [facility] CLIA [id number] [address] [place] [address] [place] Cardiolipin IgA Ser IA-aCnco n 06-27-2024 Cardiolipin IgA IA Qn (S) <9.0 Normal <12.0 [facility] Comment on above: Order Comment: Speci men Type: BLOOD SPECIMENOrdering Facility: [facility] Address: [address] [place] [address] Result Comment: <12 APL Negative 12-20 APL Indeterminate >20 APL Positive The following results were obtained with the [email or web address] QUANTA Lite TUNDE IgA III DEEPTI. Cardiolipin IgA values obtained with the different manufacturers' assay methods may not be used interchangeably. The magnitude of the reported IgA levels cannot be correlated to an endpoint titer. Performed By: #### 5 076-5, BETA2M, CARDIG, CARDIM, BETA2G ####[facility] [id number] [address] [place] Order Comment: Speci men Type: BLOOD SPECIMEN Ordering Facility: [facility] Address: [address] [place] [address] Performed By: #### 2 1198-7 #### [facility] CLIA [id number] [address] [place] [address] [place] LUPUS PANELon 06-27-2024 aPTT Coag (Bld) [Time] 40.7 s Normal 30.2-43.0 [facility] Comment on above: Order Comment: Speci men Type: BLOOD SPECIMEN Ordering Facility: [facility] Address: [address] [place] [address] Result Comment: This test was developed, and its performance characteristics determined by the [facility] Department of Pathology and Laboratory Medicine. It has not been cleared or approved by the FDA. The [facility] Department of Pathology and Laboratory Medicine is regulated under CLIA as qualified to perform high-complexity testing. This test is used for clinical purposes. It should not be regarded as investigational or for research. Performed By: #### M ICRO #### [facility] CLIA [id number] [address] [place] [address] [place] aPTT Coag (Bld) [Time] 36.7 s Normal 31.5-38.3 [facility] Comment on above: Order Comment: Speci men Type: BLOOD SPECIMEN Ordering Facility: [facility] Address: [address] [place] [address] Result Comment: This test was developed, and its performance characteristics determined by the [facility] Department of Pathology and Laboratory Medicine. It has not been cleared or approved by the FDA. The [facility] Department of Pathology and Laboratory Medicine is regulated under CLIA as qualified to perform high-complexity testing. This test is used for clinical purposes. It should not be regarded as investigational or for research. Performed By: #### M ICRO #### [facility] CLIA [id number] [address] [place] [address] [place] aPTT Coag (Bld) [Time] 31.9 s Normal 24.0-35.1 [facility] Comment on above: Order Comment: Speci men Type: BLOOD SPECIMEN Ordering Facility: [facility] Address: [address] [place] [address] Performed By: #### M ICRO #### [facility] CLIA [id number] [address] [place] [address] [place] aPTT W excess hexagonal phase phospholipid Coag (PPP) [Time] 54.0 seconds High 34.0-51.8 [facility] Comment on above: Order Comment: Speci men Type: BLOOD SPECIMEN Ordering Facility: [facility] Address: [address] [place] [address] Performed By: #### M ICRO #### [facility] CLIA [id number] [address] [place] [address] [place] Coagulation factor X activated act Coag Qn (PPP) <0.10 Normal <0.10 [facility] Comment on above: Order Comment: Speci men Type: BLOOD SPECIMEN Ordering Facility: [facility] Address: [address] [place] [address] Result Comment: This test was developed, and its performance characteristics determined by the [facility] Department of Pathology and Laboratory Medicine. It has not been cleared or approved by the FDA. The [facility] Department of Pathology and Laboratory Medicine is regulated under CLIA as qualified to perform high-complexity testing. This test is used for clinical purposes. It should not be regarded as investigational or for research. Performed By: #### M ICRO #### [facility] CLIA [id number] [address] [place] [address] [place] Delta dRVVT Coag (PPP) [Time diff] 5.7 delta seconds Normal <7.1 [facility] Comment on above: Order Comment: Speci men Type: BLOOD SPECIMEN Ordering Facility: [facility] Address: [address] [place] [address] Performed By: #### M ICRO #### [facility] CLIA [id number] [address] [place] [address] [place] dRVVT Coag (PPP) [Time] 38.9 s Normal 32.0-45.7 [facility] Comment on above: Order Comment: Speci men Type: BLOOD SPECIMEN Ordering Facility: [facility] Address: [address] [place] [address] Performed By: #### M ICRO #### [facility] CLIA [id number] [address] [place] [address] [place] dRVVT factor substitution immediately after 1:2 addition of normal plasma Coag (PPP) [Time] 37.2 seconds Normal 32.0-45.7 [facility] Comment on above: Order Comment: Speci men Type: BLOOD SPECIMEN Ordering Facility: [facility] Address: [address] [place] [address] Performed By: #### M ICRO #### [facility] CLIA [id number] [address] [place] [address] [place] dRVVT W excess hexagonal phase phospholipid actual/normal Coag (PPP) [Relative time] 48.3 seconds High 34.2-47.9 [facility] Comment on above: Order Comment: Speci men Type: BLOOD SPECIMEN Ordering Facility: [facility] Address: [address] [place] [address] Performed By: #### M ICRO #### [facility] CLIA [id number] [address] [place] [address] [place] dRVVT/dRVVT.excess phospholipid Coag (PPP) [Ratio] 1.28 Normal <1.32 [facility] Comment on above: Order Comment: Speci men Type: BLOOD SPECIMEN Ordering Facility: [facility] Address: [address] [place] [address] Performed By: #### M ICRO #### [facility] CLIA [id number] [address] [place] [address] [place] PLATELET NEUT 3.3 Seconds High <1.9 [facility] Comment on above: Order Comment: Preston nicole Type: BLOOD SPECIMEN Ordering Facility: [facility] Address: [address] [place] [address] Result Comment: This test was developed, and its performance characteristics determined by the [facility] Department of Pathology and Laboratory Medicine. It has not been cleared or approved by the FDA. The [facility] Department of Pathology and Laboratory Medicine is regulated under CLIA as qualified to perform high-complexity testing. This test is used for clinical purposes. It should not be regarded as investigational or for research. Performed By: #### M ICRO #### [facility] CLIA [id number] [address] [place] [address] [place] Thrombin time Coag (PPP) [Time] <16.8 Normal <18.6 [facility] Comment on above: Order Comment: Preston nicole Type: BLOOD SPECIMEN Ordering Facility: [facility] Address: [address] [place] [address] Performed By: #### M ICRO #### [facility] CLIA [id number] [address] [place] [address] [place] PT panel Coag (PPP)on 2023 INR Coag (PPP) [Relative time] 1.0 {INR} Normal 0.9-1.3 [facility] Comment on above: Order Comment: Preston nicole Type: BLOOD SPECIMEN Ordering Facility: [facility] Address: [address] [place] [address] Result Comment: Reyna min K Antagonist (VKA) Therapeutic Range: INR 2 to 3 (Target INR of 2.5) Note: For patients treated with VKA drugs, such as warfarin, the [place] [employer] 2012 Guideline recommends a therapeutic INR range of 2 to 3 (target INR of 2.5). This recommendation includes high-risk patients with antiphospholipid syndrome with previous arterial or venous thromboembolism, current-generation mechanical or bioprosthetic aortic heart valve replacement. Note: Patients with mechanical aortic valve replacement and additional risk factors for thromboembolic events (atrial fibrillation, previous thromboembolism, LV dysfunction, hypercoagulable conditions) or an older generation mechanical AVR (i.e., ball in-Cage) or any mechanical MVR should have a INR therapeutic range of 2.5 to 3.5 (target INR of 3). Michael GH, et al. Chest 2012, 141:7S-47S Rosalina RA et al. [facility] 2017, 70: 252-289 Performed By: #### M ICRO #### [facility] CLIA [id number] [address] [place] [address] [place] PT Coag (PPP) [Time] 9.8 s Normal <13.1 [facility] Comment on above: Order Comment: Preston nicole Type: BLOOD SPECIMEN Ordering Facility: [facility] Address: [address] [place] [address] Performed By: #### M ICRO #### [facility] CLIA [id number] [address] [place] [address] [place] THYROID PEROXIDASE ANTIBODYo n 06-27-2024 TPO Ab Qn 18.6 [IU]/mL High <5.6 [facility] Comment on above: Order Comment: Preston nicole Type: BLOOD SPECIMEN Ordering Facility: [facility] Address: [address] [place] [address] Result Comment: Thyr oid Peroxidase Antibody test is used as an aid in diagnosis of autoimmune thyroid disease. Clinical correlation is required. Performed By: #### M ICRO #### [facility] CLIA [id number] [address] [place] [address] [place] TSH SerPl-aCncon 06-27-2024 TSH Qn 1.330 m[IU]/L Normal 0.270-4.200 [facility] Comment on above: Order Comment: Preston nicole Type: BLOOD SPECIMEN Ordering Facility: [facility] Address: [address] [place] [address] Result Comment: If t he patient is , TSH reference range varies by gestational period: First Trimester (weeks 9-12): 0.180-2.990 mIU/L Second Trimester: 0.110-3.980 mIU/L Third Trimester: 0.480-4.710 mIU/L Guillermo Duke et al. A Practical Approach for the Verifications and Determination of Site- and Trimester-Specific Reference Intervals for Thyroid Function tests in . Thyroid, 2019:29:3:412-420. Morris Chun, et al. 2017 Guidelines of the [place] [employer] for the Diagnosis and Management of Thyroid Disease during and the . Thyroid, 2017:27:3:315-389. Performed By: #### 2 1198-7 #### [facility] CLIA [id number] [address] [place] [address] [place] [address] [place] aPTT PPPon 06-27-2024 aPTT Coag (PPP) [Time] 28.4 s Normal 23.0-32.4 [facility] Comment on above: Order Comment: Speci men Type: BLOOD SPECIMEN Ordering Facility: [facility] Address: [address] [place] [address] Performed By: #### M ICRO #### [facility] CLIA [id number] [address] [place] [address] [place] [address] [place] Rich 06-16-2024 CNPN Telephone (OBGYBD) ---- LUCIE DENT ([id number]) 1990 F Date Time Provider Department 06/16/24 NYDIA LACEY OBGYBD During your visit today, we recorded the following information about you: Nydia Lacey RN 06/16/2024 11:41 AM Signed [facility] RN Coordination Date of Referral: 05/19/2024 Reason for Referral: Previous PEAC pt, 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 Previous PEAC pt. 05/19/2024 Phone Called pt, verified name and . Introduced self and PEAC. LMP 04/17. Pt denies VB. Reports a one time episode today of right sided sharp pain that lasted 10-15 minutes. Pt has a hx of ectopic and tubal reversal. Serial HCGs ordered. Scheduled pt for early viability POCUS on 05/29 @ 9:45am with Dr. Franco. Reviewed emergent ectopic and SAB precautions. 05/27/2024 Phone Called pt, name/ verified.Reports that still has intermittent pain, thinks may be due to dehydration or previous c/s scar. Will have repeat HCG drawn today after work. Aware of precautions. Will f/u with HCG result 05/28/2024 Phone Called pt, reviewed result note. Denies any new or worsening symptoms at this time. Will f/u at appt tomorrow JS 05/30/2024 Phone Discussed US results and HCG results. Discussed MTX vs diagnostic MVA. Pt interested in diagnostic MVA Sunday. Pt wants anxiolytic. Will send rx and consent form. Please schedule for Sunday w me. Suzi Franco, 05/30/2024 Phone Tentatively scheduled pt for dx IPAS on 06/02 at 10:30am with Dr. Franco. Called pt to confirm. No answer, LMTCB. MCM sent. 06/03/2024 Phone Called pt, verified name and . Discussed w pt that her hCG had a significant decrease, so no need for MTX, just trend hCG to negative (<5) with next hCG due in a week. Pt reports no bleeding today, cramping like normal period level, advised OTC medications for relief; pt reports feeling very emotional. Pt offered a VV in follow-up, would like a as it is her day off, out of town 06/12, accepts a VV 06/19 at 1:[address] Franco. Discussed referrals, pt will contact [facility] if any questions re connecting with [facility] and genetics. LW 06/12/2024 MyChart MCM sent with HCG reminder. LG 06/16/2024 Phone Called pt, verified name and . Discussed that pt hCG is now negative, no more hCGs needed. Also asked to reschedule her VV time on due to change in provider schedule, pt accepts an 11:45 on 06/[address] Franco, appt change made. LW Allergies As of Date: 06/16/2024 Noted Allergy Reaction SULFA (SULFONAMIDE ANTIBIOTICS) 07/21/2020 4 - Hives 12 - Shortness of Breath Date Reviewed: 06/02/2024 Reviewed by: Suzi Franco DO - Fully Assessed Reason for Visit: [facility] [[id number]] Prescriptions as of 06/16/2024 - L-Norgest and E Estradiol-E Estrad (SEASONIQUE) 0.15 mg-30 mcg (84)/10 mcg (7) Take 1 tablet by mouth once daily. - ibuprofen (MOTRIN) 600 mg tablet Take 1 tablet by mouth every 6 hours as needed for pain or fever (specify temp.). - ibuprofen (MOTRIN) 600 mg tablet Take 1 tablet by mouth every 6 hours as needed for pain. Take with food. - ondansetron orally disintegrating (ZOFRAN ODT) 4 mg disintegrating tablet Take 1 tablet by mouth every 8 hours as needed for nausea/vomiting. - Cholecalciferol, Vitamin D3, 50 mcg (2,000 unit) cap - busPIRone (BUSPAR) 5 mg tablet Take 1 tablet by mouth three times a day. - ferrous sulfate (IRON ORAL) Take by mouth. - acetaminophen (TYLENOL EXTRA STRENGTH) 500 mg tablet Take 2 tablets by mouth every 8 hours as needed for pain. - PNV/iron/omega3/fol ic acid/min (PRENAT IA-XBSD-UL-FA-OM3-M INAA ORAL) Take by mouth. - sertraline HCl (ZOLOFT ORAL) Take 100 mg by mouth once daily. Pt is taking 1 and 1/2 tablets daily Problem List As Of Date 06/16/2024 Noted Resolved with history of section, ant*10/02/2022 History of reversal of tubal ligation [Z98.890] 10/02/2022 with history of ectopic [O0*10/02/2022 History of macrosomia in in prior pregna*10/02/2022 Family history of muscular dystrophy [Z82.0] 10/02/2022 Anxiety and depression [F41.9, F32.A] 10/02/2022 Supervision of other high risk pregnancies, fir*10/26/2023 Obesity in [O99.210] 10/26/2023 History of asthma [Z87.09] 10/26/2023 Asthma affecting in first trimester [*10/31/2023 Fetus with trisomy 13, single gestation [O35.11*02/08/2024 Encounter Status:Closed by NYDIA LACEY on 06/16/24 Normal [facility] B-HCG SerPl-aCncon HCG.beta subunit Qn 4.7 m[IU]/mL Normal <5.0 [facility] Comment on above: Order Comment: Speci men Type: BLOOD SPECIMEN Ordering Facility: [facility] Address: [address] [place] [address] Result Comment: Nega tive Performed By: #### M [facility] #### [facility] CLIA [id number] [address] [place], [place] [address] [address] [place] CNPSusu 06-12-2024 CNPN Telephone (OBGFVC) ---- LUCIE DENT ([id number]) 1990 F Date Time Provider Department 06/12/24 MILDRED MALIK OBGFVC During your visit today, we recorded the following information about you: Mildred Malik, RN 06/12/2024 8:46 AM Signed [facility] Assessment Clinic RN Coordination Date of Referral: 05/19/2024 Reason for Referral: Previous PEAC pt, hx DANDE 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 Previous PEAC pt. 05/19/2024 Phone Called pt, verified name and . Introduced self and PEAC. LMP 04/17. Pt denies VB. Reports a one time episode today of right sided sharp pain that lasted 10-15 minutes. Pt has a hx of ectopic and tubal reversal. Serial HCGs ordered. Scheduled pt for early viability POCUS on 05/29 @ 9:45am with Dr. Franco. Reviewed emergent ectopic and SAB precautions. 05/27/2024 Phone Called pt, name/ verified.Reports that still has intermittent pain, thinks may be due to dehydration or previous c/s scar. Will have repeat HCG drawn today after work. Aware of precautions. Will f/u with HCG result 05/28/2024 Phone Called pt, reviewed result note. Denies any new or worsening symptoms at this time. Will f/u at appt tomorrow 05/30/2024 Phone Discussed US results and HCG results. Discussed MTX vs diagnostic MVA. Pt interested in diagnostic MVA Sunday. Pt wants anxiolytic. Will send rx and consent form. Please schedule for Sunday w me. Suzi Franco DO 05/30/2024 Phone Tentatively scheduled pt for dx IPAS on 06/02 at 10:30am with Dr. Franco. Called pt to confirm. No answer, LMTCB. MCM sent. 06/03/2024 Phone Called pt, verified name and . Discussed w pt that her hCG had a significant decrease, so no need for MTX, just trend hCG to negative (<5) with next hCG due in a week. Pt reports no bleeding today, cramping like normal period level, advised OTC medications for relief; pt reports feeling very emotional. Pt offered a VV in follow-up, would like a as it is her day off, out of town 06/12, accepts a VV 06/19 at 1:[address] Franco. Discussed referrals, pt will contact [facility] if any questions re connecting with [facility] and genetics. LW 06/12/2024 MyChart MCM sent with HCG reminder. LG Allergies As of Date: 06/12/2024 Noted Allergy Reaction SULFA (SULFONAMIDE ANTIBIOTICS) 07/21/2020 4 - Hives 12 - Shortness of Breath Date Reviewed: 06/02/2024 Reviewed by: Suzi Franco, - Fully Assessed Reason for Visit: [facility] [[id number]] Prescriptions as of 06/12/2024 - L-Norgest and E Estradiol-E Estrad (SEASONIQUE) 0.15 mg-30 mcg (84)/10 mcg (7) Take 1 tablet by mouth once daily. - ibuprofen (MOTRIN) 600 mg tablet Take 1 tablet by mouth every 6 hours as needed for pain or fever (specify temp.). - ibuprofen (MOTRIN) 600 mg tablet Take 1 tablet by mouth every 6 hours as needed for pain. Take with food. - ondansetron orally disintegrating (ZOFRAN ODT) 4 mg disintegrating tablet Take 1 tablet by mouth every 8 hours as needed for nausea/vomiting. - Cholecalciferol, Vitamin D3, 50 mcg (2,000 unit) cap - busPIRone (BUSPAR) 5 mg tablet Take 1 tablet by mouth three times a day. - ferrous sulfate (IRON ORAL) Take by mouth. - acetaminophen (TYLENOL EXTRA STRENGTH) 500 mg tablet Take 2 tablets by mouth every 8 hours as needed for pain. - PNV/iron/omega3/fol ic acid/min (PRENAT VY-KCWC-FB-FA-OM3-M INAA ORAL) Take by mouth. - sertraline HCl (ZOLOFT ORAL) Take 100 mg by mouth once daily. Pt is taking 1 and 2 tablets daily Problem List As Of Date 06/12/2024 Noted Resolved with history of section, ant*10/02/2022 History of reversal of tubal ligation [Z98.890] 10/02/2022 with history of ectopic [O0*10/02/2022 History of macrosomia in infant in prior pregna*10/02/2022 Family history of muscular dystrophy [Z82.0] 10/02/2022 Anxiety and depression [F41.9, F32.A] 10/02/2022 Supervision of other high risk pregnancies, fir*10/26/2023 Obesity in [O99.210] 10/26/2023 History of asthma [Z87.09] 10/26/2023 Asthma affecting in first trimester [*10/31/2023 Fetus with trisomy 13, single gestation [O35.11*02/08/2024 Encounter Status:Closed by MILDRED MALIK on 06/12/24 Normal [facility].beta subunit Qn 357.0 m[IU]/mL High <5.0 C [facility] Comment on above: Order Comment: Speci men Type: BLOOD SPECIMEN Ordering Facility: [facility] Address: [address] [place] [address] Result Comment: CHAS TITATIVE HCG NORMAL RANGES Weeks of Gestation (Weeks Since LMP) 3 Weeks (5.8-71.2 mIU/mL) 4 Weeks (9.5-750 mIU/mL) 5 Weeks (217-7138 mIU/mL) 6 Weeks (158-47154 mIU/mL) 7 Weeks (3697-848861 mIU/mL) 8 Weeks (59306-716575 mIU/mL) 9 Weeks (33264-225386 mIU/mL) 10 Weeks (66191-252251 mIU/mL) 12 Weeks (52329-225756 mIU/mL) [facility] Performed By: #### 2 1198-7 #### [facility] CLIA [id number] [address] [place] Rich 06-03-2024 CNPN Telephone (OBGYBD) ---- STEWARTLUCIE VANEGAS ([id number]) 1990 F Date Time Provider Department 06/03/24 NYDIA LACEY OBGYBD During your visit today, we recorded the following information about you: Nydia Lacey, RN 06/03/2024 4:41 PM Signed Early Assessment Clinic RN Coordination Date of Referral: 05/19/2024 Reason for Referral: Previous PEAC pt, 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 Previous PEAC pt. 05/19/2024 Phone Called pt, verified name and . Introduced self and PEAC. LMP 04/17. Pt denies VB. Reports a one time episode today of right sided sharp pain that lasted 10-15 minutes. Pt has a hx of ectopic and tubal reversal. Serial HCGs ordered. Scheduled pt for early viability POCUS on 05/29 @ 9:45am with Dr. Franco. Reviewed emergent ectopic and SAB precautions. KP 05/27/2024 Phone Called pt, name/ verified.Reports that still has intermittent pain, thinks may be due to dehydration or previous c/s scar. Will have repeat HCG drawn today after work. Aware of precautions. Will f/u with HCG result JS 05/28/2024 Phone Called pt, reviewed result note. Denies any new or worsening symptoms at this time. Will f/u at appt tomorrow JS 05/30/2024 Phone Discussed US results and HCG results. Discussed MTX vs diagnostic MVA. Pt interested in diagnostic MVA Sunday. Pt wants anxiolytic. Will send rx and consent form. Please schedule for Sunday w me. Suzi Franco DO 05/30/2024 Phone Tentatively scheduled pt for dx IPAS on 06/02 at 10:30am with Dr. Franco. Called pt to confirm. No answer, LMTCB. MCM sent. KP 06/03/2024 Phone Called pt, verified name and . Discussed w pt that her hCG had a significant decrease, so no need for MTX, just trend hCG to negative (<5) with next hCG due in a week. Pt reports no bleeding today, cramping like normal period level, advised OTC medications for relief; pt reports feeling very emotional. Pt offered a VV in follow-up, would like a as it is her day off, out of town 06/12, accepts a VV 06/19 at 1:[address] Franco. Discussed referrals, pt will contact [facility] if any questions re connecting with SEKOU and genetics. LW Allergies As of Date: 06/03/2024 Noted Allergy Reaction SULFA (SULFONAMIDE ANTIBIOTICS) 07/21/2020 4 - Hives 12 - Shortness of Breath Date Reviewed: 06/02/2024 Reviewed by: Suzi Franco DO - Fully Assessed Reason for Visit: [facility] [[id number]] Prescriptions as of 06/03/2024 - L-Norgest and E Estradiol-E Estrad (SEASONIQUE) 0.15 mg-30 mcg (84)/10 mcg (7) Take 1 tablet by mouth once daily. - ibuprofen (MOTRIN) 600 mg tablet Take 1 tablet by mouth every 6 hours as needed for pain or fever (specify temp.). - ibuprofen (MOTRIN) 600 mg tablet Take 1 tablet by mouth every 6 hours as needed for pain. Take with food. - ondansetron orally disintegrating (ZOFRAN ODT) 4 mg disintegrating tablet Take 1 tablet by mouth every 8 hours as needed for nausea/vomiting. - Cholecalciferol, Vitamin D3, 50 mcg (2,000 unit) cap - busPIRone (BUSPAR) 5 mg tablet Take 1 tablet by mouth three times a day. - ferrous sulfate (IRON ORAL) Take by mouth. - acetaminophen (TYLENOL EXTRA STRENGTH) 500 mg tablet Take 2 tablets by mouth every 8 hours as needed for pain. - PNV/iron/omega3/fol ic acid/min (PRENAT HG-ENAD-TR-FA-OM3-M INAA ORAL) Take by mouth. - sertraline HCl (ZOLOFT ORAL) Take 100 mg by mouth once daily. Pt is taking 1 and 1/2 tablets daily Problem List As Of Date 06/03/2024 Noted Resolved with history of section, ant*10/02/2022 History of reversal of tubal ligation [Z98.890] 10/02/2022 with history of ectopic [O0*10/02/2022 History of macrosomia in infant in prior pregna*10/02/2022 Family history of muscular dystrophy [Z82.0] 10/02/2022 Anxiety and depression [F41.9, F32.A] 10/02/2022 Supervision of other high risk pregnancies, fir*10/26/2023 Obesity in [O99.210] 10/26/2023 History of asthma [Z87.09] 10/26/2023 Asthma affecting in first trimester [*10/31/2023 Fetus with trisomy 13, single gestation [O35.11*02/08/2024 Encounter Status:Closed by NYDIA LACEY on 06/03/24 Normal [facility] B-HCG SerPl-aCncon 4 HCG.beta subunit Qn 808.9 m[IU]/mL High <5.0 C [facility] Comment on above: Order Comment: Speci men Type: BLOOD SPECIMEN Ordering Facility: [facility] Address: [address] [place] [address] [place] [address] Result Comment: CHAS TITATIVE HCG NORMAL RANGES Weeks of Gestation (Weeks Since LMP) 3 Weeks (5.8-71.2 mIU/mL) 4 Weeks (9.5-750 mIU/mL) 5 Weeks (217-7138 mIU/mL) 6 Weeks (158-93809 mIU/mL) 7 Weeks (3697-180512 mIU/mL) 8 Weeks (91354-609269 mIU/mL) 9 Weeks (92400-430066 mIU/mL) 10 Weeks (23716-969887 mIU/mL) 12 Weeks (77755-254057 mIU/mL) Referenced to 4th IS of [facility] Performed By: #### T FELISA #### [facility]IN [facility]LO[facility] [id number] [address] [place] [address] CNOVon 06-02-2024 CNOV Office Visit (OBGYNC) ---- LUCIE DENT ([id number]) 1990 F Date Time Provider Department 06/02/24 10:30 AM SUZI FRANCO OBGYCOLBY During your visit today, we recorded the following information about you: Pulse Respiration Blood pressure Weight 76/minute 16/minute 113/77 97.4 kg Suzi Franco DO 06/02/2024 10:42 AM Signed Information and Instructions: After a Manual Uterine Aspiration (IPAS) Procedure Bleeding Most people have some bleeding after an aspiration procedure. The amount differs for each everyone, ranging from no bleeding to moderate period-like bleeding and lasting for a few days to 2-6 weeks. It is normal to have blood clots when you stand up or use the bathroom during the first few days. It is ok to be as active as you feel ready to be. You may notice more bleeding and cramping during activity. Please call if you are completely soaking through a pad every hour for 2 hours, or passing multiple large clots or larger and larger clots. Cramping Most women have some cramping after the procedure. The amount of discomfort varies, as everyone experiences pain in a different way. Some women find that a heating pad or hot water bottle on the stomach or back helps. If you don?t have a heating pad, put some rice into a sock and heat it in the microwave, but beware, it?s hot! You may also take ibuprofen (Motrin/ Advil) or naproxen (Aleve). If you can?t take either of those medications you may use acetaminophen (Tylenol). Please call if you have severe pain or cramps that are not relieved by the pain medication. Fever Please call if your temperature is 100.4 degrees or higher for more than 2 hours. Fever can be a sign of infection, so call your doctor if you are feeling sick. You may have received a medication called misoprostol, which can cause a fever on the day of your procedure that goes away on it's own and is not concerning. symptoms You may have symptoms such as nausea, breast tenderness, or fatigue that last for a few days after the procedure. You may also notice some nipple discharge or breast swelling. If this occurs, wear a supportive bra and avoid stimulation. You may also use a cold compress. Your test may remain positive for up to 4 weeks. Please call if you have symptoms that last longer than 7 - 10 days. control For most people, it is physically possible (though unlikely) to become in the next 2 - 4 weeks, so it is important to start a control method if you are not planning a right away. Please discuss this with your provider if you have not already chosen a method. If you would like to become soon after this procedure, please discuss this with your doctor. Follow up Most women do not need a follow up appointment. Your doctor may recommend one, or you may choose to schedule one if you have any concerns, problems, or questions. Please do not put anything in your vagina for 1 week (no vaginal intercourse, toys, tampons, or douching). Do not swim or use hot tubs for 1 week. Baths by yourself (do not share water for 2 weeks) and showers are OK. Important Phone Numbers: [facility] Appointments in Inside Sales Advisor ( Early Assessment Clinics) Dianelys Ashley [facility] at [phone] [facility] at [phone] [facility] at [phone] After 4:30 PM or on weekends, you may reach the on-call Inside Sales Advisor by calling the clinic where you were seen. This will automatically transfer you to a contracted answering service, who will then page the appropriate provider. Most calls are returned within 15-20 minutes depending on other direct patient care. When to call the doctor: If your temperature is 100.4 degrees or higher for more than 2 hours. If you have heavy bleeding and soak through more than 2 pads in an hour for 2 hours in a row. If you have severe pain or cramps that are not relieved by the pain medication. LOSS RESOURCES Physical recovery from loss from a spontaneous miscarriage, ectopic , DANDC, or a DANDE may take several weeks. However, emotional recovery can take longer, and is individualized to each person. Many people have different feelings and experiences with loss or termination. Grief is a normal part of the healing process. Taking time to heal both physically and emotionally after a loss is important. Above all, don?t blame yourself. Counseling is available to help you cope with your loss. A loss support group might also be a valuable resource to you and your partner. ONLINE RESOURCES Unspoken Grief: an online miscarriage support resource for miscarriage, stillbirth and loss [email or web address].org A Heartbreaking Choice: support for diagnosis or termination for me (more content not included)... Normal [facility] Comprehensive metabolic 2000 panelon 06-02-2024 Albumin [Mass/Vol] 4.1 g/dL Normal 3.9-4.9 [facility] Comment on above: Order Comment: Speci corey Type: BLOOD SPECIMEN Ordering Facility: [facility] Address: [address] [place] [address] Performed By: #### C HRBLD #### CLARITY ILLUMINA LIMS CLIA [id number] [address] [place] [address] [place] ALP [Catalytic activity/Vol] 49 U/L Normal 34-123 [facility] Comment on above: Order Comment: Speci men Type: BLOOD SPECIMEN Ordering Facility: [facility] Address: [address] [place] [address] Performed By: #### C HRBLD #### CLARITY ILLUMINA LIMS CLIA [id number] [address] [place] [address] [place] ALT [Catalytic activity/Vol] 13 U/L Normal 7-38 [facility] Comment on above: Order Comment: Speci men Type: BLOOD SPECIMEN Ordering Facility: [facility] Address: [address] [place] [address] Performed By: #### C HRBLD #### CLARITY ILLUMINA LIMS CLIA [id number] [address] [place] [address] [place] Anion gap [Moles/Vol] 11 mmol/L Normal 8-15 [facility] Comment on above: Order Comment: Speci men Type: BLOOD SPECIMEN Ordering Facility: [facility] Address: [address] [place] [address] Performed By: #### C HRBLD #### CLARITY ILLUMINA LIMS CLIA [id number] [address] [place] [address] [place] AST [Catalytic activity/Vol] 17 U/L Normal 13-35 [facility] Comment on above: Order Comment: Speci men Type: BLOOD SPECIMEN Ordering Facility: [facility] Address: [address] [place] [address] Performed By: #### C HRBLD #### CLARITY ILLUMINA LIMS CLIA [id number] [address] [place] [address] [place] Bilirubin [Mass/Vol] 0.3 mg/dL Normal 0.2-1.3 [facility] Comment on above: Order Comment: Speci men Type: BLOOD SPECIMEN Ordering Facility: [facility] Address: [address] [place] [address] Performed By: #### C HRBLD #### CLARITY ILLUMINA LIMS CLIA [id number] [address] [place] [address] [place] Calcium [Mass/Vol] 9.0 mg/dL Normal 8.5-10.2 [facility] Comment on above: Order Comment: Speci men Type: BLOOD SPECIMEN Ordering Facility: [facility] Address: [address] [place] [address] Performed By: #### C HRBLD #### CLARITY ILLUMINA LIMS CLIA [id number] [address] [place] [address] [place] Chloride [Moles/Vol] 105 mmol/L Normal 98-107 [facility] Comment on above: Order Comment: Speci men Type: BLOOD SPECIMEN Ordering Facility: [facility] Address: [address] [place] [address] Performed By: #### C HRBLD #### CLARITY ILLUMINA LIMS CLIA [id number] [address] [place] [address] [place] CO2 [Moles/Vol] 22 mmol/L Normal 22-30 [facility] Comment on above: Order Comment: Speci men Type: BLOOD SPECIMEN Ordering Facility: [facility] Address: [address] [place] [address] Performed By: #### C HRBLD #### CLARITY ILLUMINA LIMS CLIA [id number] [address] [place] [address] [place] Creatinine [Mass/Vol] 0.78 mg/dL Normal 0.58-0.96 [facility] Comment on above: Order Comment: Speci men Type: BLOOD SPECIMEN Ordering Facility: [facility] Address: [address] [place] [address] Performed By: #### C HRBLD #### CLARITY ILLUMINA LIMS CLIA [id number] [address] [place] [address] [place] [facility] Creatinine and Glomerular filtration rate.predicted panel (S/P/Bld) 104 mL/min/1.73m??? Normal >=60 [facility] Comment on above: Order Comment: Speci men Type: BLOOD SPECIMEN Ordering Facility: [facility] Address: [address] [place] [address] Result Comment: Radha mated Glomerular Filtration Rate (eGFR) is calculated using the 2020 CKD-EPI creatinine equation. This equation utilizes serum creatinine, sex, and age as parameters. The creatinine assay has traceable calibration to isotope dilution-mass spectrometry. Refer to KDIGO guidelines for clinical interpretation. In patients with unstable renal function, e.g. those with acute kidney injury, the eGFR may not accurately reflect actual GFR. Performed By: #### C HRBLD #### CLARITY ILLUMINA LIMS CLIA [id number] [address] [place] [address] [place] Glucose [Mass/Vol] 87 mg/dL Normal 74-99 [facility] Comment on above: Order Comment: Speci men Type: BLOOD SPECIMEN Ordering Facility: [facility] Address: [address] [place] [address] Result Comment: The [place] Diabetes Association (ADA) provides guidance for cutoff values for fasting glucose and random glucose. The ADA defines fasting as no caloric intake for at least 8 hours. Fasting plasma glucose results between 100 to 125 mg/dL indicate increased risk for diabetes (prediabetes). Fasting plasma glucose results greater than or equal to 126 mg/dL meet the criteria for diagnosis of diabetes. In the absence of unequivocal hyperglycemia, results should be confirmed by repeat testing. In a patient with classic symptoms of hyperglycemia or hyperglycemic crisis, random plasma glucose results greater than or equal to 200 mg/dL meet the criteria for diagnosis of diabetes. Reference: Standards of Medical Care in Diabetes 2016, [place] Diabetes Association. Diabetes Care. 2016.39(Suppl 1). Performed By: #### C HRBLD #### CLARITY ILLUMINA LIMS CLIA [id number] [address] [place] [address] [place] Potassium [Moles/Vol] 4.3 mmol/L Normal 3.7-5.1 [facility] Comment on above: Order Comment: Speci men Type: BLOOD SPECIMEN Ordering Facility: [facility] Address: [address] [place] [address] Performed By: #### C HRBLD #### CLARITY ILLUMINA LIMS CLIA [id number] [address] [place] [address] [place] Protein [Mass/Vol] 6.6 g/dL Normal 6.3-8.0 [facility] Comment on above: Order Comment: Preston men Type: BLOOD SPECIMEN Ordering Facility: [facility] Address: [address] [place] [address] Performed By: #### C HRBLD #### CLARITY ILLUMINA LIMS CLIA [id number] [address] [place] [address] [place] Sodium [Moles/Vol] 138 mmol/L Normal 136-144 [facility] Comment on above: Order Comment: Speci men Type: BLOOD SPECIMEN Ordering Facility: [facility] Address: [address] [place] [address] Performed By: #### C HRBLD #### CLARITY ILLUMINA LIMS CLIA [id number] [address] [place] [address] [place] Urea nitrogen [Mass/Vol] 14 mg/dL Normal 7-21 [facility] Comment on above: Order Comment: Speci men Type: BLOOD SPECIMEN Ordering Facility: [facility] Address: [address] [place] [address] Performed By: #### C HRBLD #### CLARITY ILLUMINA LIMS CLIA [id number] [address] [place] [address] [place] HCG QUANTITATIVEOrdered By: Suzan Arriola on 06-02-2024 HCG.beta subunit Qn 808.9 m[IU]/mL [facility] Comment on above: QUANTITATIVE HCG NOR MAL RANGES Weeks of Gestation (Weeks Since LMP) 3 Weeks (5.8-71.2 mIU/mL) 4 Weeks (9.5-750 mIU/mL) 5 Weeks (217-7138 mIU/mL) 6 Weeks (158-11207 mIU/mL) 7 Weeks (3697-577480 mIU/mL) 8 Weeks (23620-920208 mIU/mL) 9 Weeks (43522-906225 mIU/mL) 10 Weeks (08707-988319 mIU/mL) 12 Weeks (29715-191050 mIU/mL) Referenced to 4th IS of [facility] HCG.beta subunit QnOrdered B y: Suzan Arriola on 06-02-2024 Interpretation and review of laboratory results Abnormal [facility] SURGICAL PATHOLOGYon CASE REPORT Normal [facility] Comment on above: Order Comment: Speci men Type: TISSUE SPECIMENOrdering Facility: [facility] Address: [address] [place] [address] Result Comment: Surg ical Pathology Report Case: [id number] Authorizing Provider: Suzi Franco DO Collected: 06/02/2024 12:01 PM Ordering Location: [employer]IC[facility] Received: 06/02/2024 03:23 PM Pathologist: Margaret Sinclair MD Specimen: Products of Conception Performed By: #### S ####[facility] LABCLIA [id number] [place] [address] [place] CLINICAL HISTORY preg unk location Normal C [facility] Comment on above: Order Comment: Speci men Type: TISSUE SPECIMENOrdering Facility: [facility] Address: [address] [place] [address] Performed By: #### S ####[facility] LABCLIA [id number] [address] [place] DIAGNOSIS COMMENT The specimen is entirely submitted for microscopic examination. There is no evidence for chorionic villi, implantation site or tissue. The findings are compatible but not diagnostic for intrauterine . Clinical correlation is essential. Normal [facility] Comment on above: Order Comment: Speci men Type: TISSUE SPECIMENOrdering Facility: [facility] Address: [address] [place] [address] Performed By: #### S ####[facility] LABCLIA [id number] [address] FINAL DIAGNOSIS Normal [facility] Comment on above: Order Comment: Speci men Type: TISSUE SPECIMENOrdering Facility: [facility] Address: [address] [place] [address] Result Comment: Alexandro. Qasim roducts conception, removal: - Hypersecretory endometrium and decidualized stroma, see comment. Performed By: #### S ####[facility] LABCLIA [id number] [address] [place] FINAL PERFORMING LAB [facility] Comment on above: Order Comment: Speci men Type: TISSUE SPECIMENOrdering Facility: [facility] Address: [address] [place] [address] Result Comment: Diag nostic interpretation performed at [facility], [address] [place] [address] CLIA# [id number] Accounting Supervisor: Kurt Garrison M.D. Performed By: #### S ####[facility] LABCLIA [id number] [address] [place] GROSS DESCRIPTION Normal [facility] Comment on above: Order Comment: Speci men Type: TISSUE SPECIMENOrdering Facility: [facility] Address: [address] [place] [address] Result Comment: A. P roducts of Conception Received in formalin, labeled products of conception are multiple tipton-pink, irregular soft tissue fragments aggregating to 8 x 7 x 1.2 cm. Scant possible villous tissue is identified. No vesicular or cystic structures are identified. No fragments are identified. The specimen is submitted entirely in A1-A10. KSZ June 03, 2024 10:56 AM KSZ June 05, 2024 10:42 AM [place] [address] Performed By: #### S ####[facility] LABIA [id number] [address] [place] Rich [facility] ---- LUCIE DENT ([id number]) 1990 F Date Time Provider Department 05/30/24 SUZI FRANCO [facility] During your visit today, we recorded the following information about you: Suzi Franco DO 05/30/2024 11:48 AM Signed Discussed US results and HCG results. Discussed MTX vs diagnostic MVA. Pt interested in diagnostic MVA Sunday. Pt wants anxiolytic. Will send rx and consent form. Please schedule for Sunday w me. 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 Previous PEAC pt. 05/19/2024 Phone Called pt, verified name and . Introduced self and PEAC. LMP 04/17. Pt denies VB. Reports a one time episode today of right sided sharp pain that lasted 10-15 minutes. Pt has a hx of ectopic and tubal reversal. Serial HCGs ordered. Scheduled pt for early viability POCUS on 05/29 @ 9:45am with Dr. Franco. Reviewed emergent ectopic and SAB precautions. 05/27/2024 Phone Called pt, name/ verified.Reports that still has intermittent pain, thinks may be due to dehydration or previous c/s scar. Will have repeat HCG drawn today after work. Aware of precautions. Will f/u with HCG result JS 05/28/2024 Phone Called pt, reviewed result note. Denies any new or worsening symptoms at this time. Will f/u at appt tomorrow JS 05/30/2024 Phone Discussed US results and HCG results. Discussed MTX vs diagnostic MVA. Pt interested in diagnostic MVA Sunday. Pt wants anxiolytic. Will send rx and consent form. Please schedule for Sunday w me. Suzi Franco DO 05/30/2024 Phone Tentatively scheduled pt for dx IPAS on 06/02 at 10:30am with Dr. Franco. Called pt to confirm. No answer, LMTCB. MCM sent. KP Allergies As of Date: 05/30/2024 Noted Allergy Reaction SULFA (SULFONAMIDE ANTIBIOTICS) 07/21/2020 4 - Hives 12 - Shortness of Breath Date Reviewed: 05/29/2024 Reviewed by: Shalini Alonzo MA - Fully Assessed Reason for Visit: [facility] [[id number]] Prescriptions as of 05/30/2024 - ibuprofen (MOTRIN) 600 mg tablet Take 1 tablet by mouth every 6 hours as needed for pain or fever (specify temp.). - LORazepam (ATIVAN) 2 mg tab Take 1 tablet by mouth one time only for 1 dose. 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 If consent not yet signed, please bring medication to appointment. - azithromycin (ZITHROMAX) 500 mg tablet Take 1 tablet by mouth one time only for 1 dose. - ibuprofen (MOTRIN) 600 mg tablet Take 1 tablet by mouth every 6 hours as needed for pain. Take with food. - ondansetron orally disintegrating (ZOFRAN ODT) 4 mg disintegrating tablet Take 1 tablet by mouth every 8 hours as needed for nausea/vomiting. - Cholecalciferol, Vitamin D3, 50 mcg (2,000 unit) cap - busPIRone (BUSPAR) 5 mg tablet Take 1 tablet by mouth three times a day. - ferrous sulfate (IRON ORAL) Take by mouth. - acetaminophen (TYLENOL EXTRA STRENGTH) 500 mg tablet Take 2 tablets by mouth every 8 hours as needed for pain. - PNV/iron/omega3/fol ic acid/min (PRENAT WC-MABZ-HS-FA-OM3-M INAA ORAL) Take by mouth. - sertraline HCl (ZOLOFT ORAL) Take 100 mg by mouth once daily. Pt is taking 1 and 1/2 tablets daily Problem List As Of Date 05/30/2024 Noted Resolved with history of section, ant*10/02/2022 History of reversal of tubal ligation [Z98.890] 10/02/2022 with history of ectopic [O0*10/02/2022 History of macrosomia in in prior pregna*10/02/2022 Family history of muscular dystrophy [Z82.0] 10/02/2022 Anxiety and depression [F41.9, F32.A] 10/02/2022 Supervision of other high risk pregnancies, fir*10/26/2023 Obesity in [O99.210] 10/26/2023 History of asthma [Z87.09] 10/26/2023 Asthma affecting in first trimester [*10/31/2023 Fetus with trisomy 13, single gestation [O35.11*02/08/2024 Encounter Status:Closed by SUZI FRANCO on 05/30/24 Normal [facility] US Pelvison 05-30-2024 Indication of unknown. History of ectopic . Impression Multiplanar images of the pelvic organs were obtained. An anteverted, axial fundus uterus measuring 105 mm x 70 mm x 52 mm. A triangular shaped defect is observed in the lower anterior myometrium. This finding is consistent with fluid in the scar niche. The central endometrial complex measures 14.2 mm. No fluid collection/gestatio nal sac is observed. Both ovaries are visualized and appear normal. No adnexal masses identified. There is no free fluid visualized in the peritoneal cavity. Recommendations Findings still consistent with a of unknown location. Recommend clinical correlation with serial hCG levels and follow up ultrasound as clinically indicated. Method Transvaginal ultrasound examination, 3D ultrasound examination, Color Doppler examination. View: Adequate visualization Number of embryos: none Dating LMP on: 04/17/2024 GA by LMP 6 w + 1 d SANDIE by LMP: 01/22/2025 Assigned: based on the LMP, selected on 05/30/2024 Assigned GA 6 w + 1 d Assigned SANDIE: 01/22/2025 Assessment Gestational sac: not visualized Yolk sac: not visualized Embryo: not visualized Uterus Uterus: Visualized Uterus position: anteverted, axial fundus Description of uterine malformations: normally shaped Myometrium: asymmetrically thickened Endometrium: three-layer pattern Cervix details: normal Uterus length 105 mm Uterus width 70 mm Uterus height 52 mm Uterus Vol 199.6 cm Endometrial thickness, total 14.2 mm Cul de Sac no free fluid visualized Right Ovary Rt ovary: Visualized Outline: smooth Rt ovary morphology: premenopausal normal follicular Rt ovary D1 26 mm Rt ovary D2 31 mm Rt ovary D3 20 mm Rt ovary Vol 8.4 cm Left Ovary Lt ovary: Visualized Outline: smooth Lt ovary morphology: premenopausal normal follicular Lt ovary D1 30 mm Lt ovary D2 21 mm Lt ovary D3 21 mm Lt ovary Vol 6.8 cm Performed By: Annetta Pal RDMS Read By: Angi Campoverde M.D. MATERNAL MEDICINE [facility] [place] Radiology Study observation (narrative) [facility] B-HCG SerPl-aCncon 4 HCG.beta subunit Qn 1652.0 m[IU]/mL High <5.0 [facility] Comment on above: Order Comment: Speci men Type: BLOOD SPECIMENOrdering Facility: [facility] Address: [address] [place] [address] Result Comment: CHAS TITATIVE HCG NORMAL RANGES Weeks of Gestation (Weeks Since LMP) 3 Weeks (5.8-71.2 mIU/mL) 4 Weeks (9.5-750 mIU/mL) 5 Weeks (217-7138 mIU/mL) 6 Weeks (158-16493 mIU/mL) 7 Weeks (3697-890586 mIU/mL) 8 Weeks (76859-401670 mIU/mL) 9 Weeks (24024-854271 mIU/mL) 10 Weeks (09507-116591 mIU/mL) 12 Weeks (80399-248643 mIU/mL) Referenced to 4th IS of [facility] Performed By: #### 2 1198-7 ####[facility] LABCLIA [id number] 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 Progress Note - [facility] ([facility]) Chief Complaint: Patient presents with: POCUS Subjective HPI: The patient is a 34 year old at 6w1d EGA by abnormal LMP with of unknown location Today, she is doing okay, just very nervous given previous outcomes Nausea comes and goes, was the initial reason for taking test, some vomiting very early in morning, not too bothersome to her No abdominal pain Feeling very thirsty, very dehydrated despite chugging water and liquid Ivs, hard stick for blood No vaginal bleeding or changes in discharge Ocassional hot flashes, feeling warmer than usual Wasn't actively trying for this time but not preventing Previously needed fertility drugs to conceive, not on them this time, hx PCOS Taking w extra iron, not currently taking iron pills for hx of anemia Feeling like a rollercoaster emotionally, nervous, desires NIPT jacklyn bc very worried about genetics this 3 kids at home Desires to establish with new OBGYN this Asthma- haven't had attack since high school, worse when get sick, hospitalized as child Anxiety/depression- doing pretty well, does counseling online, on zoloft and buspar First preg emergency 41 weeks for high BP, no HTN outside PSH: ectopic, , tubal reversal 04/17 as first day of last period, LMP is certain LMP was weird relative to others in terms of amount bleeding, pretty regular within 2-3 days Histories updated. Objective BP 120/75 Pulse 85 Ht 167.6 cm (5' 6) Wt 97.3 kg (214 lb 8.1 oz) LMP 04/17/2024 (Exact Date) BMI 34.62 kg/m? Physical Exam Constitutional: General: She is not in acute distress. Appearance: Normal appearance. HENT: Head: Normocephalic and atraumatic. Eyes: Extraocular Movements: Extraocular movements intact. Pupils: Pupils are equal, round, and reactive to light. Pulmonary: Effort: Pulmonary effort is normal. Genitourinary: General: Normal vulva. Neurological: General: No focal deficit present. Mental Status: She is alert and oriented to person, place, and time. Mental status is at baseline. Psychiatric: Mood and Affect: Mood normal. Behavior: Behavior normal. Thought Content: Thought content normal. Labs: Lab Results Component Value Date HB 12.2 02/06/2024 PLT 252 02/06/2024 RH Positive 02/06/2024 ABORHD O POSITIVE 06/15/2021 HCGQT 1,652.0 (H) 05/29/2024 HCGQT 1,479.0 (H) 05/27/2024 HCGQT 553.5 (H) 05/24/2024 hC:10- 145, 05/22: 255, 05/24: 554, 05/27: 1479 Imaging: POC US performed today. See imaging tab for details. Assessment / Plan 34 year old at 6w1d by LMP with PUL. We discussed at length the current placeholder diagnosis of of unknown location and contextualized this within expectations for normal versus abnormal hCG trends. We reviewed the current clinical priority is determining location due to the high level of risk associated with ectopic . If an intrauterine location is confirmed, the next step is to determine viability. Expected HCG increase for viable intrauterine : - 49% for an initial hCG level of less than 1,500 mIU/mL - 40% for an initial hCG level of 1,500-3,000 mIU/mL - 33% for an initial hCG level greater than 3,000 mIU/mL A increase less than the expected amount predicts a failing intrauterine or ectopic with 99% certainty. More than one abnormal trend increases the diagnostic certainty further. Expected HCG trend for spontaneous resolution of : The 95% predictive bound for the minimum hCG decline in women with resolving of unknown location ranges from 35-50% at 2 days and 66-87% at 7 days for starting hCG values of 250-5,000. Slower decreases are more common in women with lower initial HCGs. - Reviewed structure of the Early Assessment Clinic - Empathized with the emotional challenges inherent in this period of uncertainty - Signs and symptoms of ectopic were reviewed and patient instructed on how to contact the care team if symptoms develop Follow-up: - Formal pelvic TVUS to evaluate for PUL. Scheduled for tomorrow. - Repeat quant HCG - Follow up as needed or as indicated by imaging and lab results Caty Campoverde MD ======== Attending Note I evaluated the patient and personally participated in the sanabria components. I agree with the reside (more content not included)... Normal [facility] CNPNon 05-29-2024 CNPN Telephone (GYCFM) ---- LUCIE DENT ([id number]) 1990 F Date Time Provider Department 05/29/24 [facility] FRANCO [facility] During your visit today, we recorded the following information about you: Suzi Franco DO 05/29/2024 6:07 PM Signed HCG is abnormal now. Recommend appt for active mgmt. Suzi Franco DO Allergies As of Date: 05/29/2024 Noted Allergy Reaction SULFA (SULFONAMIDE ANTIBIOTICS) 07/21/2020 4 - Hives 12 - Shortness of Breath Date Reviewed: 05/29/2024 Reviewed by: Shalini Alonzo MA - Fully Assessed Reason for Visit: [facility] [[id number]] Prescriptions as of 05/29/2024 - ibuprofen (MOTRIN) 600 mg tablet Take 1 tablet by mouth every 6 hours as needed for pain. Take with food. - ondansetron orally disintegrating (ZOFRAN ODT) 4 mg disintegrating tablet Take 1 tablet by mouth every 8 hours as needed for nausea/vomiting. - Cholecalciferol, Vitamin D3, 50 mcg (2,000 unit) cap - busPIRone (BUSPAR) 5 mg tablet Take 1 tablet by mouth three times a day. - ferrous sulfate (IRON ORAL) Take by mouth. - acetaminophen (TYLENOL EXTRA STRENGTH) 500 mg tablet Take 2 tablets by mouth every 8 hours as needed for pain. - PNV/iron/omega3/fol ic acid/min (PRENAT YB-VSVU-HY-FA-OM3-M INAA ORAL) Take by mouth. - sertraline HCl (ZOLOFT ORAL) Take 100 mg by mouth once daily. Pt is taking 1 and 1/2 tablets daily Problem List As Of Date 05/29/2024 Noted Resolved with history of section, ant*10/02/2022 History of reversal of tubal ligation [Z98.890] 10/02/2022 with history of ectopic [O0*10/02/2022 History of macrosomia in in prior pregna*10/02/2022 Family history of muscular dystrophy [Z82.0] 10/02/2022 Anxiety and depression [F41.9, F32.A] 10/02/2022 Supervision of other high risk pregnancies, fir*10/26/2023 Obesity in [O99.210] 10/26/2023 History of asthma [Z87.09] 10/26/2023 Asthma affecting in first trimester [*10/31/2023 Fetus with trisomy 13, single gestation [O35.11*02/08/2024 Encounter Status:Closed by SUZI FRANCO on 05/29/24 Normal [facility] No Panel Informationon 05-29 Indication of unknown location, history of ectopic . Impression A small intrauterine fundal fluid collection is present, without a yolk sac or embryo, which may represent an early gestational sac. There is also a separate fluid collection within the myometrium at the location of the prior scars, consistent with an isthmocele. The ovaries are visualized bilaterally and normal. No free fluid. Recommendations Formal ultrasound was recommended for further evaluation of the adnexa, endometrium, and isthmocele. Ectopic precautions reviewed. Method Transabdominal and transvaginal ultrasound examination. View: Adequate visualization Phan . Number of fetuses: 1 Dating LMP on: 04/17/2024 GA by LMP 6 w + 0 d SANDIE by LMP: 01/22/2025 GA by prior assessment 37 w + 3 d SANDIE by prior assessment: 06/16/2024 Assigned: based on stated SANDIE, selected on 01/23/2024 Assigned GA 37 w + 3 d Assigned SANDIE: 06/16/2024 Biometry Extended GS 3.1 mm -/- Scott Assessment Gestational sac: uncertain GS 3.1 mm -/- Scott Maternal Structures Endometrial thickness 21 mm. Normal adnexa bilaterally. No free fluid. Performed By: Suzi Franco M.D. Read By: Suzi Franco M.D. 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 Previous PEAC pt. 05/19/2024 Phone Called pt, verified name and . Introduced self and PEAC. LMP 04/17. Pt denies VB. Reports a one time episode today of right sided sharp pain that lasted 10-15 minutes. Pt has a hx of ectopic and tubal reversal. Serial HCGs ordered. Scheduled pt for early viability POCUS on 05/29 @ 9:45am with Dr. Franco. Reviewed emergent ectopic and SAB precautions. KP 05/27/2024 Phone Called pt, name/ verified.Reports that still has intermittent pain, thinks may be due to dehydration or previous c/s scar. Will have repeat HCG drawn today after work. Aware of precautions. Will f/u with HCG result JS 05/28/2024 Phone Called pt, reviewed result note. Denies any new or worsening symptoms at this time. Will f/u at appt tomorrow JS Allergies As of Date: 05/28/2024 Noted Allergy Reaction SULFA (SULFONAMIDE ANTIBIOTICS) 07/21/2020 4 - Hives 12 - Shortness of Breath Date Reviewed: 02/08/2024 Reviewed by: Shonda Zabala RN - Fully Assessed Reason for Visit: [facility] [[id number]] Prescriptions as of 05/28/2024 - ibuprofen (MOTRIN) 600 mg tablet Take 1 tablet by mouth every 6 hours as needed for pain. Take with food. - ondansetron orally disintegrating (ZOFRAN ODT) 4 mg disintegrating tablet Take 1 tablet by mouth every 8 hours as needed for nausea/vomiting. - Cholecalciferol, Vitamin D3, 50 mcg (2,000 unit) cap - busPIRone (BUSPAR) 5 mg tablet Take 1 tablet by mouth three times a day. - ferrous sulfate (IRON ORAL) Take by mouth. - acetaminophen (TYLENOL EXTRA STRENGTH) 500 mg tablet Take 2 tablets by mouth every 8 hours as needed for pain. - PNV/iron/omega3/fol ic acid/min (PRENAT XQ-MRNV-DY-FA-OM3-M INAA ORAL) Take by mouth. - sertraline HCl (ZOLOFT ORAL) Take 100 mg by mouth once daily. Pt is taking 1 and 1/2 tablets daily Problem List As Of Date 05/28/2024 Noted Resolved with history of section, ant*10/02/2022 History of reversal of tubal ligation [Z98.890] 10/02/2022 with history of ectopic [O0*10/02/2022 History of macrosomia in in prior pregna*10/02/2022 Family history of muscular dystrophy [Z82.0] 10/02/2022 Anxiety and depression [F41.9, F32.A] 10/02/2022 Supervision of other high risk pregnancies, fir*10/26/2023 Obesity in [O99.210] 10/26/2023 History of asthma [Z87.09] 10/26/2023 Asthma affecting in first trimester [*10/31/2023 Fetus with trisomy 13, single gestation [O35.11*02/08/2024 Encounter Status:Closed by FERN BEJARANO on 05/28/24 Normal [facility] B-HCG SerPl-aCncon 4 HCG.beta subunit Qn 1479.0 m[IU]/mL High <5.0 [facility] Comment on above: Order Comment: Speci men Type: BLOOD SPECIMEN Ordering Facility: [facility] Address: [address] [place] [address] Result Comment: CHAS TITATIVE HCG NORMAL RANGES Weeks of Gestation (Weeks Since LMP) 3 Weeks (5.8-71.2 mIU/mL) 4 Weeks (9.5-750 mIU/mL) 5 Weeks (217-7138 mIU/mL) 6 Weeks (158-28932 mIU/mL) 7 Weeks (3697-457211 mIU/mL) 8 Weeks (08336-900428 mIU/mL) 9 Weeks (26360-406089 mIU/mL) 10 Weeks (47189-003649 mIU/mL) 12 Weeks (70886-640370 mIU/mL) Referenced to 4th IS of [facility] Performed By: #### C HRBLD #### [facility]LLUM[facility] [place] [id number] [address] [place] [address] [place] CNPSusu 05-27-2024 CNPN Telephone (OBGYCF) ---- LUCIE DENT ([id number]) 1990 F Date Time Provider Department 05/27/24 [facility] During your visit today, we recorded the following information about you: Fern Bejarano RN 05/27/2024 2:30 PM Signed [facility] RN Coordination Date of Referral: 05/19/2024 Reason for Referral: Previous PEAC pt, hx DANDE 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 Previous PEAC pt. 05/19/2024 Phone Called pt, verified name and . Introduced self and PEAC. LMP 04/17. Pt denies VB. Reports a one time episode today of right sided sharp pain that lasted 10-15 minutes. Pt has a hx of ectopic and tubal reversal. Serial HCGs ordered. Scheduled pt for early viability POCUS on 05/29 @ 9:45am with Dr. Franco. Reviewed emergent ectopic and SAB precautions. 05/27/2024 Phone Called pt, name/ verified.Reports that still has intermittent pain, thinks may be due to dehydration or previous c/s scar. Will have repeat HCG drawn today after work. Aware of precautions. Will f/u with HCG result JS Allergies As of Date: 05/27/2024 Noted Allergy Reaction SULFA (SULFONAMIDE ANTIBIOTICS) 07/21/2020 4 - Hives 12 - Shortness of Breath Date Reviewed: 02/08/2024 Reviewed by: Shonda Zabala RN - Fully Assessed Reason for Visit: [facility] [[id number]] Prescriptions as of 05/27/2024 - ibuprofen (MOTRIN) 600 mg tablet Take 1 tablet by mouth every 6 hours as needed for pain. Take with food. - ondansetron orally disintegrating (ZOFRAN ODT) 4 mg disintegrating tablet Take 1 tablet by mouth every 8 hours as needed for nausea/vomiting. - Cholecalciferol, Vitamin D3, 50 mcg (2,000 unit) cap - busPIRone (BUSPAR) 5 mg tablet Take 1 tablet by mouth three times a day. - ferrous sulfate (IRON ORAL) Take by mouth. - acetaminophen (TYLENOL EXTRA STRENGTH) 500 mg tablet Take 2 tablets by mouth every 8 hours as needed for pain. - PNV/iron/omega3/fol ic acid/min (PRENAT NV-OOHG-YY-FA-OM3-M INAA ORAL) Take by mouth. - sertraline HCl (ZOLOFT ORAL) Take 100 mg by mouth once daily. Pt is taking 1 and 1/2 tablets daily Problem List As Of Date 05/27/2024 Noted Resolved with history of section, ant*10/02/2022 History of reversal of tubal ligation [Z98.890] 10/02/2022 with history of ectopic [O0*10/02/2022 History of macrosomia in in prior pregna*10/02/2022 Family history of muscular dystrophy [Z82.0] 10/02/2022 Anxiety and depression [F41.9, F32.A] 10/02/2022 Supervision of other high risk pregnancies, fir*10/26/2023 Obesity in [O99.210] 10/26/2023 History of asthma [Z87.09] 10/26/2023 Asthma affecting in first trimester [*10/31/2023 Fetus with trisomy 13, single gestation [O35.11*02/08/2024 Encounter Status:Closed by FERN BEJARANO on 05/27/24 Normal [facility] B-HCG SerPl-aCncon 4 HCG.beta subunit Qn 553.5 m[IU]/mL High <5.0 [facility] Comment on above: Order Comment: Speci men Type: BLOOD SPECIMEN Ordering Facility: [facility] Address: [address] [place] [address] Result Comment: CHAS TITATIVE HCG NORMAL RANGES Weeks of Gestation (Weeks Since LMP) 3 Weeks (5.8-71.2 mIU/mL) 4 Weeks (9.5-750 mIU/mL) 5 Weeks (217-7138 mIU/mL) 6 Weeks (158-66402 mIU/mL) 7 Weeks (3697-563376 mIU/mL) 8 Weeks (40724-074663 mIU/mL) 9 Weeks (98705-019426 mIU/mL) 10 Weeks (00574-189350 mIU/mL) 12 Weeks (37126-330569 mIU/mL) Referenced to 4th IS of [facility] Performed By: #### 2 1198-7 #### [facility] CLIA [id number] [address] [place] [address] [place] B-HCG SerPl-aCncon 4 HCG.beta subunit Qn 254.6 m[IU]/mL High <5.0 [facility] Comment on above: Order Comment: Speci men Type: BLOOD SPECIMEN Ordering Facility: [facility] Address: [address] [place] [address] Result Comment: CHAS TITATIVE HCG NORMAL RANGES Weeks of Gestation (Weeks Since LMP) 3 Weeks (5.8-71.2 mIU/mL) 4 Weeks (9.5-750 mIU/mL) 5 Weeks (217-7138 mIU/mL) 6 Weeks (158-59162 mIU/mL) 7 Weeks (3697-381264 mIU/mL) 8 Weeks (36614-981353 mIU/mL) 9 Weeks (00684-817354 mIU/mL) 10 Weeks (82300-621816 mIU/mL) 12 Weeks (40333-024780 mIU/mL) Referenced to 4th IS of [facility] Performed By: #### 2 1198-7 #### [facility] CLIA [id number] [address] [place] [address] [place] B-HCG SerPl-aCncon 4 HCG.beta subunit Qn 145.4 m[IU]/mL High <5.0 C [facility] Comment on above: Order Comment: Speci men Type: BLOOD SPECIMEN Ordering Facility: [facility] Address: [address] [place] [address] Result Comment: CHAS TITATIVE HCG NORMAL RANGES Weeks of Gestation (Weeks Since LMP) 3 Weeks (5.8-71.2 mIU/mL) 4 Weeks (9.5-750 mIU/mL) 5 Weeks (217-7138 mIU/mL) 6 Weeks (158-18456 mIU/mL) 7 Weeks (3697-178581 mIU/mL) 8 Weeks (53299-303429 mIU/mL) 9 Weeks (49487-988362 mIU/mL) 10 Weeks (72236-503393 mIU/mL) 12 Weeks (44383-355804 mIU/mL) Referenced to 4th IS of [facility] Performed By: #### C HRBLD #### [facility] HENRI HUTTON [id number] [address] [place], [place] [address]K [id number] [place] [address] [place] HCG QUANTITATIVEon HCG.beta subunit Qn 145.4 m[IU]/mL [facility] Comment on above: QUANTITATIVE HCG NOR MAL RANGES Weeks of Gestation (Weeks Since LMP) 3 Weeks (5.8-71.2 mIU/mL) 4 Weeks (9.5-750 mIU/mL) 5 Weeks (217-7138 mIU/mL) 6 Weeks (158-23341 mIU/mL) 7 Weeks (3697-140442 mIU/mL) 8 Weeks (63435-815461 mIU/mL) 9 Weeks (74877-470223 mIU/mL) 10 Weeks (79905-746801 mIU/mL) 12 Weeks (84004-125614 mIU/mL) Referenced to 4th IS of [facility] HCG.beta subunit Qnon 2023 Interpretation and review of laboratory results Abnormal [facility] CNPSusu 05-19-2024 DARLINE Telephone (OBGY) ---- AOUNAH,LUCIE ([id number]) 1990 F Date Time Provider Department 05/19/24 KRISTI MARQUEZ OBGYCF During your visit today, we recorded the following information about you: Kristi Marquez RN 05/20/2024 4:53 PM Addendum [facility] RN Coordination Date of Referral: 05/19/2024 Reason for Referral: Previous PEAC pt, hx DANDE 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 Previous PEAC pt. 05/19/2024 Phone Called pt, verified name and . Introduced self and PEAC. LMP 04/17. Pt denies VB. Reports a one time episode today of right sided sharp pain that lasted 10-15 minutes. Pt has a hx of ectopic and tubal reversal. Serial HCGs ordered. Scheduled pt for early viability POCUS on 05/29 @ 9:45am with Dr. Franco. Reviewed emergent ectopic and SAB precautions. KP Allergies As of Date: 05/19/2024 Noted Allergy Reaction SULFA (SULFONAMIDE ANTIBIOTICS) 07/21/2020 4 - Hives 12 - Shortness of Breath Date Reviewed: 02/08/2024 Reviewed by: Shonda Zabala, EVIE - Fully Assessed Reason for Visit: [facility] [4090] Primary Visit Diagnosis: examination or test, unconfirmed [Z32.00] Order(s):HCG QUANTITATIVE [SQHCGQT] Order #: [id number] STANDING Prescriptions as of 05/20/2024 - ibuprofen (MOTRIN) 600 mg tablet Take 1 tablet by mouth every 6 hours as needed for pain. Take with food. - ondansetron orally disintegrating (ZOFRAN ODT) 4 mg disintegrating tablet Take 1 tablet by mouth every 8 hours as needed for nausea/vomiting. - Cholecalciferol, Vitamin D3, 50 mcg (2,000 unit) cap - busPIRone (BUSPAR) 5 mg tablet Take 1 tablet by mouth three times a day. - ferrous sulfate (IRON ORAL) Take by mouth. - acetaminophen (TYLENOL EXTRA STRENGTH) 500 mg tablet Take 2 tablets by mouth every 8 hours as needed for pain. - PNV/iron/omega3/fol ic acid/min (PRENAT BV-UNLM-GB-FA-OM3-M INAA ORAL) Take by mouth. - sertraline HCl (ZOLOFT ORAL) Take 100 mg by mouth once daily. Pt is taking 1 and 1/2 tablets daily Problem List As Of Date 05/19/2024 Noted Resolved with history of section, ant*10/02/2022 History of reversal of tubal ligation [Z98.890] 10/02/2022 with history of ectopic [O0*10/02/2022 History of macrosomia in infant in prior pregna*10/02/2022 Family history of muscular dystrophy [Z82.0] 10/02/2022 Anxiety and depression [F41.9, F32.A] 10/02/2022 Supervision of other high risk pregnancies, fir*10/26/2023 Obesity in [O99.210] 10/26/2023 History of asthma [Z87.09] 10/26/2023 Asthma affecting in first trimester [*10/31/2023 Fetus with trisomy 13, single gestation [O35.11*02/08/2024 Encounter Status:Closed by KRISTI MARQUEZ on 05/20/24 [facility] 04-09-2024 CNPN Telephone (OBGYBE) ---- LUCIE DENT ([id number]) 1990 F Date Time Provider Department 7/31/24 HISTORICAL OBGYBE During your visit today, we recorded the following information about you: Melody Hassan RN 04/09/2024 2:38 PM Signed Called patient to schedule preconception consult and got . with number provided to return call. Melody Hassan RN Allergies As of Date: 04/09/2024 Noted Allergy Reaction SULFA (SULFONAMIDE ANTIBIOTICS) 07/21/2020 4 - Hives 12 - Shortness of Breath Date Reviewed: 02/08/2024 Reviewed by: Shonda Zabala RN - Fully Assessed Reason for Visit: preconception consult [Other] Prescriptions as of 04/09/2024 - ibuprofen (MOTRIN) 600 mg tablet Take 1 tablet by mouth every 6 hours as needed for pain. Take with food. - ondansetron orally disintegrating (ZOFRAN ODT) 4 mg disintegrating tablet Take 1 tablet by mouth every 8 hours as needed for nausea/vomiting. - Cholecalciferol, Vitamin D3, 50 mcg (2,000 unit) cap - busPIRone (BUSPAR) 5 mg tablet Take 1 tablet by mouth three times a day. - ferrous sulfate (IRON ORAL) Take by mouth. - acetaminophen (TYLENOL EXTRA STRENGTH) 500 mg tablet Take 2 tablets by mouth every 8 hours as needed for pain. - PNV/iron/omega3/fol ic acid/min (PRENAT ZT-LQLD-TM-FA-OM3-M INAA ORAL) Take by mouth. - sertraline HCl (ZOLOFT ORAL) Take 100 mg by mouth once daily. Pt is taking 1 and 1/2 tablets daily Problem List As Of Date 04/09/2024 Noted Resolved with history of section, ant*10/02/2022 History of reversal of tubal ligation [Z98.890] 10/02/2022 with history of ectopic [O0*10/02/2022 History of macrosomia in infant in prior pregna*10/02/2022 Family history of muscular dystrophy [Z82.0] 10/02/2022 Anxiety and depression [F41.9, F32.A] 10/02/2022 Supervision of other high risk pregnancies, fir*10/26/2023 Obesity in [O99.210] 10/26/2023 History of asthma [Z87.09] 10/26/2023 Asthma affecting in first trimester [*10/31/2023 Fetus with trisomy 13, single gestation [O35.11*02/08/2024 Encounter Status:Closed by MELODY HASSAN on 04/09/24 Normal [facility] CNNURSEon 02-07-2024 CNNURSE Nurse Visit ([facility]) ---- LUCIE DENT ([id number]) 1990 F Date Time Provider Department 02/07/24 2:30 PM [facility] [employer]IC[employer] [facility] During your visit today, we recorded the following information about you: Pulse Blood pressure Weight 78/minute 113/77 96.6 kg Mirella Edmondson MA 02/07/2024 2:43 PM Signed Pt state she has no concerns. Mirella Edmondson MA February 07, 2024 2:41 PM Bayron Ramirez DO 02/07/2024 3:39 PM Addendum Family Planning Instructions/Expect ations: You had laminaria placed in order to gradually open your cervix to allow for the procedure to be completed safely. Afterwards and overnight, you may experience cramping, pressure or pain as a result of the laminaria swelling overnight. This is normal. You may take: - Ibuprofen 600 mg every 6 hours (if you are taking regular over the counter ibuprofen, that is 3 tablets) - Tylenol 1000 mg every 6 hours (take 2 500 mg tablets of over the counter Tylenol). Do not exceed 4000 mg of Tylenol in 24 hour period. - Oxycodone 5 m or 2 tablets every 4 hours as needed for pain Normal symptoms with laminaria in place: - Cramping, pain, pressure that improves with pain medications - Light vaginal bleeding/spotting - Discolored discharge (this may vary based on the cleaning solution used on the cervix and sponges) - You will have sponges in the vagina that may feel similar to a large tampon. If they fall out, that is ok. Let us know in the morning when you come for your procedure. CALL if you have the following with laminaria in place: - Bleeding that is like a period or more - Pain or cramping that is not improving with pain medications - A gush of fluid as if your water broke - Fever (Temperature 100.4F or higher) - Severe vomiting, where you are unable to keep down liquids or medications Please call Dr. Franco [phone] Ramirez [phone] with concerns for possible labor or proceed to [facility] Labor and Delivery Day of surgery instructions: Your DANDE is scheduled for 3:30 pm. Please arrive to the hospital by 1:30 pm You should have NOTHING to EAT or DRINK after midnight the night before your procedure. Small sips of water with medication is okay. You should not chew gum, eat candy, or drink anything until after your procedure. You MUST have a responsible adult with you to drive you home after the procedure. Bayron Ramirez DO 02/07/2024 4:50 PM Signed Lucie Dent is a 33 year old at 21w3d who presents today for cervical dilator insertion prior to dilation and evacuation. Estimated Date of Delivery: 06/16/24 UNIVERSAL PROTOCOL / SAFETY CHECKLIST Procedure to be performed: cervical dilator insertion Sign in Communication: Completed Time Out: Team Confirms the Correct Patient, Correct Procedure, Correct Site and Site Marking, Correct Position (if applicable), Prep and Dry Time (if applicable). Affirmation of Time Out: YES Sign Out Discussion: Completed Bayron Ramirez DO PROCEDURE: BIMANUAL EXAM: cervix closed, anteverted, uterus enlarged to 21 weeks EXTERNAL GENITALIA: Normal in appearance without lesions VAGINA: Normal in appearance without lesions CERVIX: Speculum placed in vagina and excellent visualization of cervix achieved. Cervix and upper vagina cleansed with betadine. Paracervical block administered with 20 mL of 1% lidocaine without epinephrine. Anterior lip of cervix grasped with single tooth tenaculum. 8 dilators placed into cervix (3 dilipan and 2 Large and 3 small laminaria), 1 gauze placed in vagina. Procedure Summary: Patient tolerated procedure well. DO Domingo Hamilton Emily, DO 02/07/2024 4:50 PM Signed Family Planning Dilator Insertion Visit Subjective: Lucie Dent is a 33 year old at general anesthesia gestation who presents for dilator insertion prior to planned DANDE tomorrow. She was previously seen for complete consult on 02/06/2024 and her 24 hour waiting period ended today at 1158. The patient states that she remains sure of her decision to terminate the . Took azithromycin and ibuprofen 30 minutes before appointment. . PAST MEDICAL HISTORY Diagnosis Date Anemia Anxiety Asthma Depression Ectopic 2021 History of depression PCOS (polycystic ovarian syndrome) 2019 depression PAST SURGICAL HISTORY Procedure Laterality Date DELIVERY ONLY , low transverse DELIVERY ONLY , low transverse DELIVERY ONLY , low transverse HSG LIG/TRNSXJ FLP TUBE ABDL/VAG APPR UNI/BI 2017 Tubal ligation SALPINGECTOMY 09/07/2021 RIGHT SIDE - ectopic at [facility] TONSILLECTOMY AND ADENOIDECTOMY HX UNL LAP TUBAL ANASTOMOSIS Bilateral Current Outpatient Medications Medication Sig Dispense Refill ibup (more content not included)... Normal [facility] CBC panel Auto (Bld)on 02-05 Erythrocyte distribution width (RBC) [Ratio] 12.7 % 11.5 - 15.0 % [facility] Hematocrit (Bld) [Volume fraction] 37.0 % 36.0 - 46.0 % [facility] Hemoglobin (Bld) [Mass/Vol] 12.2 g/dL 11.5 - 15.5 g/dL [facility] Interpretation and review of laboratory results Normal [facility] MCH (RBC) [Entitic mass] 29.0 pg 26.0 - 34.0 pg [facility] MCHC (RBC) [Mass/Vol] 33.0 g/dL 30.5 - 36.0 g/dL [facility] MCV (RBC) [Entitic vol] 88.1 fL 80.0 - 100.0 fL [facility] Nucleated RBC (Bld) [#/Vol] NINF [facility] Platelet mean volume (Bld) [Entitic vol] 9.9 fL 9.0 - 12.7 fL [facility] Platelets (Bld) [#/Vol] 252 10*3/uL [facility] RBC (Bld) [#/Vol] 4.20 10*6/uL 3.90 - 5.2 0 m/uL [facility] WBC (Bld) [#/Vol] 9.20 10*3/uL [facility] Gestational age Amniocentesi s (fetus) [Time]on 01-24-2024 Indication Amniocentesis for multiple anomalies Impression Single, live intrauterine Normal amniotic fluid Anomalies from remotely read ultrasound 01/22 again seen with the following noted: -Unilateral cleft lip and palate -Cranial abnormalities: microcephaly, lemon shape of cranium,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 Post-procedure precautions reviewed Recommendations Follow up results of genetic amniocentesis Genetic counseling tomorrow echocardiogram next week History General History Rhesus: Rh positive Height 170 cm Height (ft) 5 ft Height (in) 7 in Maternal Assessment Height 170 cm Height (ft) 5 ft Height (in) 7 in Weight 96 kg Weight (lb) 211 lb BMI 33.05 kg/m Physical Exam Initial weight (lb) 199 lb Initial BMI 31.17 kg/m Method Transabdominal ultrasound examination Phan . Number of fetuses: 1 Dating LMP on: 09/10/2023 GA by LMP 19 w + 3 d SANDIE by LMP: 06/16/2024 GA by prior assessment 19 w + 3 d SANDIE by prior assessment: 06/16/2024 Assigned: based on stated SANDIE, selected on 01/23/2024 Assigned GA 19 w + 3 d Assigned SANDIE: 06/16/2024 General Evaluation Cardiac activity present. FHR 161 bpm. movements: present. Presentation: breech Placenta: Placental site: anterior, fundal Amniotic fluid: Amount of AF: normal amount Perioperative Procedures Fetus: Premedication / Anesthesia given Amniocentesis Start 12:13 PM. End 12:15 PM Instrument: TA 20G needle. Entries uterus: 1 Sample: obtained. Sample amount 25 ml. Sample quality: clear yellow Sample identification confirmed Evaluation FHR post 161 bpm FHR present post-procedure Immediate Treatment No treatment Rhesus Prophylaxis Rh positive Performed By: Ivan Chen RDMS Read By: Selena Demarco M.D. MATERNAL MEDICINE [facility] Radiology Study observation (narrative) [facility] Examination level ultrasound on 01-23-2024 Indication anatomy survey Obesity, BMI >30 Impression REMOTE READ 1. Single, live, intrauterine . 2. biometry is consistent with the established gestational age. 3. 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 Amniotic fluid is normal amount. 5. The placenta is anterior, fundal. 6. Normal transabdominal cervical length without evidence of funneling or dynamic changes. Ultrasound Consultation Discussed findings with patient and family by phone, including option for genetic counseling and diagnostic testing Recommendations Plan for genetic counseling and amniocentesis this week at [place] Additional follow up pending work up Maternal Assessment Height 170 cm Height (ft) 5 ft Height (in) 7 in Physical Exam Initial weight (lb) 199 lb Initial BMI 31.17 kg/m Maternal assessment other: 5 Para 3 Method Transabdominal ultrasound examination. View: Suboptimal view: limited by position Phan . Number of fetuses: 1 Dating LMP on: 09/10/2023 GA by LMP 19 w + 2 d SANDIE by LMP: 06/16/2024 GA by prior assessment 19 w + 2 d SANDIE by prior assessment: 06/16/2024 Ultrasound examination on: 01/23/2024 GA by U/S based upon: AC, BPD, Femur, HC GA by U/S 18 w + 1 d SANDIE by U/S: 06/24/2024 Assigned: based on stated SANDIE, selected on 01/23/2024 Assigned GA 19 w + 2 d Assigned SANDIE: 06/16/2024 General Evaluation Cardiac activity present. FHR 149 bpm. movements: present. Presentation: transverse head right Placenta: Placental site: anterior, fundal Umbilical cord: normal insertion, 3 vessel cord Amniotic fluid: Amount of AF: normal amount. MVP 3.7 cm Growth Overview Exam date GA BPD (mm) HC (mm) AC (mm) FL (mm) HL (mm) EFW (g) 01/23/2024 19w 2d 35.3 <1% 137.4 3% 144.1 61% 28.2 40% 30 72% 261 23% Biometry Standard BPD 35.3 mm 16w 6d <1% Hadlock OFD 49.2 mm 16w 6d <1% Nicolaides HC 137.4 mm 17w 0d 3% Micheal Nuchal fold 4.1 mm AC 144.1 mm 19w 5d 61% Hadlock Femur 28.2 mm 18w 5d 40% Micheal Humerus 30.0 mm 19w 6d 72% Micheal EFW 261 g 18w 5d 23% Hadlock EFW (lb) 0 lb EFW (oz) 9 oz EFW by: Hadlock (HC-AC-FL) Extended Change Control Coordinator 3.3 mm Extremities / Bony Struc FL / HC 0.21 >99% Hadlock Other Structures FHR 149 bpm Anatomy Cranium: abnormal Lateral ventricles: normal Choroid plexus: normal Midline falx: normal Cavum septi pellucidi: normal Cerebellum: abnormal Cisterna magna: abnormal Head / Neck Vermis: suboptimal Neck: normal Nuchal fold: normal Lips: abnormal Profile: normal Nose: normal Face Lips: cleft upper lip: right unilateral Maxilla: normal Mandible: normal Orbits: normal Lens: normal 4-chamber view: normal RVOT view: abnormal LVOT view: normal 3-vessel view: abnormal 8-[id number]-cdqvsac view: abnormal Heart / Thorax Situs: situs solitus (normal) Aortic arch view: normal Ductal arch view: normal SVC: normal IVC: normal Cardiac axis: normal Rt lung: normal Lt lung: normal Diaphragm: normal Cord insertion: normal Stomach: normal Bladder: normal Genitals: normal Abdomen Abdom. wall: normal Rt kidney: abnormal Rt kidney: pyelectasis 4.6mm Lt kidney: abnormal Lt kidney: pyelectasis 5.2 mm Cervical spine: normal Thoracic spine: normal Lumbar spine: suboptimal Sacral spine: suboptimal Arms: normal Hands: suboptimal Legs: normal Rt upper arm: normal Rt forearm: normal Rt hand: normal Rt fingers: normal Lt upper arm: normal Lt forearm: normal Lt hand: normal Lt fingers: normal Rt upper leg: normal Rt lower leg: normal Rt foot: normal Lt upper leg: normal Lt lower leg: normal Lt foot: normal sex: male Wants to know sex: yes Maternal Structures Uterus / Cervix Uterus: Visualized Cervix: Visualized Approach: Transabdominal Cervical length 30.8 mm Ovaries / Tubes / Adnexa Rt ovary: Not visualized Lt ovary: Visualized Performed By: Mildred Fink RDMS, RVT Read By: Selena Demarco M.D. MATERNAL MEDICINE [facility] Radiology Study observation (narrative) [facility] CORONAVIRUS PCR - [facility] 12-19-2023 SARS-CoV-2 (COVID-19) RNA TAMMIE+probe Ql (Unsp spec) Negative Normal NORMAL: NEGATIVE [facility] Comment on above: Performed By: #### [id number] #### [facility],[address] [place] [address] SEND TO IC? NO Normal [facility] Comment on above: Result Comment: RESU LTS FAXED TO INFECTION CONTROL. SARS-CoV-2 THIS TEST IS BEING USED UNDER THE FDA EUA PROCEDURE. THIS ASSAY HAS BEEN VALIDATED IN THE [facility] FOR USE WITH NASOPHARYNGEAL SPECIMENS IN [facility]. INTERPRETIVE DATA LABORATORY TEST RESULTS SHOULD ALWAYS BE CONSIDERED IN THE CONTEXT OF CLINICAL OBSERVATIONS AND EPIDEMIOLOGICAL DATA IN MAKING FINAL DIAGNOSIS AND PATIENT MANAGEMENT DECISIONS. PATIENT MANAGEMENT SHOULD FOLLOW CURRENT CDC GUIDELINES. A POSITIVE TEST RESULT FOR COVID-19 INDICATES THAT RNA FROM SARS-CoV-2 WAS DETECTED, AND THE PATIENT IS INFECTED WITH THE VIRUS AND PRESUMED TO BE CONTAGIOUS. A NEGATIVE TEST RESULT FOR THIS TEST MEANS THAT SARS-CoV-2 RNA WAS NOT PRESENT IN THE SPECIMEN ABOVE THE LIMIT OF DETECTION. HOWEVER, A NEGATVIE RESULT DOES NOT RULE OUT COVID-19 AND SHOULD NOT BE USED THE SOLE BASIS FOR TREATMENT OR PATIENT MANAGEMENT DECISIONS. A NEGATIVE RESULT DOES NOT EXCLUDE THE POSSIBILITY OF COVID-19. WHEN DIAGNOSTIC TESTING IS NEGATIVE, THE POSSIBLILTY OF A FALSE NEGATIVE RESULT SHOULD BE CONSIDERED IN THE CONTEXT OF A PATIENT'S RECENT EXPOSURES AND THE PRESENCE OF CLINICAL SIGNS AND SYMPTOMS CONSISTENT WITH COVID-19. THE POSSIBILITY OF A FALSE NEGATIVE RESULT SHOULD ESPECIALLY BE CONSIDERED IF THE PATIENT'S RECENT EXPOSURES OR CLINICAL PRESENTATION INDICATE THAT COVID-19 IS LIKELY, AND DIAGNOSTIC TESTS FOR OTHER CAUSES OF ILLNESS (e.g., OTHER RESPIRATORY ILLNESS) ARE NEGATIVE. IF COVID-19 IS STILL SUSPECTED BASED ON EXPOSURE HISTORY TOGETHER WITH OTHER CLINICAL FINDINGS, RE-TESTED SHOULD BE CONSIDERED BY HEALTHCARE PROVIDERS IN CONSULTATION WITH PUBLIC HEALTH AUTHORITIES. Performed By: #### 2 [id number] #### [facility],[address] [place] [address] C. trachomatis+N. gonorrhoea e DNA TAMMIE+probe Ql (Unsp spec)on 10-27-2023 C. trachomatis rRNA TAMMIE+probe Ql (Unsp spec) Negative Negative for Chlamydia trachomatis by amplificaton [facility] N. gonorrhoeae rRNA TAMMIE+probe Ql (Unsp spec) Negative Negative for Neisseria gonorrhoeae by amplification [facility] URINE CULTUREon 10-27-2023 Bacteria identified Cx Nom (U) No growth (<1,000 CFU/ml) [facility] No Panel Informationon 10-26 [facility] CBC + DIFFon 09-11-2023 Baso # 0.00 x10EE3/UL Normal 0.00 - 0.10 [facility] Comment on above: Performed By: #### 2 [id number] #### [facility],[address] [place] [address] Basophils/100 WBC (Bld) 0.7 % Normal 0.0 - 2.0 [facility] Comment on above: Performed By: #### 2 [id number] #### [facility],[address] [place] [address] CBC + DIFF Normal [facility] Comment on above: Result Comment: CBC- COMPLETE BLOOD COUNT Performed By: #### 2 [id number] #### [facility],[address] [place] [address] EO # 0.10 x10EE3/UL Normal 0.00 - 0.50 [facility] Comment on above: Performed By: #### 2 [id number] #### [facility],[address] [place] [address] Eosinophils/100 WBC (Bld) 1.7 % Normal 0.0 - 7.0 [facility] Comment on above: Performed By: #### 2 [id number] #### [facility],[address] [place] [address] Erythrocyte distribution width (RBC) [Ratio] 13.4 % Normal 12.0 - 15.6 [facility] Comment on above: Performed By: #### 2 [id number] #### [facility],[address] [place] [address] Hematocrit (Bld) [Volume fraction] 36.8 % Normal 34.0 - 46.0 [facility] Comment on above: Performed By: #### 2 [id number] #### [facility],[address] [place] [address] Hemoglobin (Bld) [Mass/Vol] 11.9 g/dL Low 12.0 - 16.0 [facility] Comment on above: Performed By: #### 2 [id number] #### [facility],[address] [place] [address] Lymph # 1.30 x10EE3/UL Normal 0.80 - 2.80 [facility] Comment on above: Performed By: #### 2 [id number] #### [facility],[address] [place], [place] [id number] Lymphocytes/100 WBC (Bld) 25.5 % Normal 20.0 - 45.0 [facility] Comment on above: Performed By: #### 2 [id number] #### [facility],[address] [place], [place] [id number] MANUAL DIFF N/A Normal [facility] Comment on above: Performed By: #### 2 [id number] #### [facility],[address] [place] [address] MCH (RBC) [Entitic mass] 29 pg Normal 27 - 33 [facility] Comment on above: Performed By: #### 2 [id number] #### [facility],[address] [place] [address] MCHC 32 X10 3 Normal 32 - 36 [facility] Comment on above: Performed By: #### 2 [id number] #### [facility],[address] [place] [address] MCV (RBC) [Entitic vol] 88 fL Normal 80 - 99 [facility] Comment on above: Performed By: #### 2 [id number] #### [facility],[address] [place] [address] Manatee # 0.40 x10EE3/UL Normal 0.20 - 1.00 [facility] Comment on above: Performed By: #### 2 15102 #### [facility],[address] [place] [address] MONOS % 7.7 % Normal 0.0 - 10.0 [facility] Comment on above: Performed By: #### 2 [id number] #### [facility],[address] [place] [address] Morphology Ronal (Bld) [Interp] N/A Normal [facility] Comment on above: Result Comment: {CD] Performed By: #### 2 [id number] #### [facility],[address] [place] [address] Neut # 3.30 x10EE3/UL Normal 1.50 - 7.10 [facility] Comment on above: Performed By: #### 2 [id number] #### [facility],[address] [place] [address] Neutrophils/100 WBC (Bld) 64.4 % Normal 46.0 - 76.0 [facility] Comment on above: Performed By: #### 2 [id number] #### [facility],[address] [place] [address] PLATELET 243 x10EE3/UL Normal 150 - 450 [facility] Comment on above: Performed By: #### 2 [id number] #### [facility],[address] [place] [address] Platelet mean volume (Bld) [Entitic vol] 8.2 fL Normal 6.6 - 10.5 [facility] Comment on above: Result Comment: AUTO MATED DIFFERENTIAL Performed By: #### 2 [id number] #### [facility],[address] [place] [address]454 RBC 4.18 x 10EE6/UL Normal 4.10 - 5.30 [facility] Comment on above: Performed By: #### 2 [id number] #### [facility],[address] [place] [address] WBC 5.1 x 10EE3/UL Normal 4.5 - 10.8 [facility] Comment on above: Performed By: #### 2 [id number] #### [facility],[address] [place] [address] CMP with eGFRon 09-11-2023 AGE 33 years Normal [facility] Comment on above: Performed By: #### 2 [id number] #### [facility],[address] [place] [address]272 Albumin [Mass/Vol] 3.5 g/dL Normal 3.4 - 5.0 [facility] Comment on above: Performed By: #### 2 [id number] #### [facility],[address] [place] [address]677 Albumin/Globulin [Mass ratio] 1.0 {ratio} Normal 0.9 - 1.6 [facility] Comment on above: Performed By: #### 2 [id number] #### [facility],[address] [place] [address] [id number] ALK PHOS 40 U/L Low 46 - 116 [facility] Comment on above: Performed By: #### 2 [id number] #### [facility],[address] [place] [address] 44190 ALT [Catalytic activity/Vol] 16 U/L Normal 14 - 59 [facility] Comment on above: Performed By: #### 2 88726 #### [facility],[address] [place] [address] 57473 Anion gap [Moles/Vol] 14 mmol/L Normal 10 - 20 [facility] Comment on above: Performed By: #### 2 22786 #### [facility],[address] [place] [address] 33066 AST [Catalytic activity/Vol] 9 U/L Low 13 - 39 [facility] Comment on above: Performed By: #### 2 02354 #### [facility],[address] [place] [address] 00880 B/C RATIO 19 ratio Normal 0 - 30 [facility] Comment on above: Performed By: #### 2 [id number] #### [facility],[address] [place] [address] 96832 Bilirubin [Mass/Vol] 0.2 mg/dL Normal 0.2 - 1.0 [facility] Comment on above: Performed By: #### 2 81975 #### [facility],[address] [place] [address] 22771 Calcium [Mass/Vol] 9.2 mg/dL Normal 8.5 - 10.1 [facility] Comment on above: Performed By: #### 2 33949 #### [facility],[address] [place] [address] 45306 Chloride [Moles/Vol] 108 mmol/L High 98 - 107 [facility] Comment on above: Performed By: #### 2 84030 #### [facility],[address] [place] [address] 84074 CMP with eGFR Normal [facility] Comment on above: Result Comment: COMP REHENSIVE METABOLIC PANEL Performed By: #### 2 77662 #### [facility],[address] [place] [address] 62136 CO2 [Moles/Vol] 26.4 mmol/L Normal 21.0 - 32.0 [facility] Comment on above: Performed By: #### 2 08430 #### [facility],[address] [place] [address] 75880 Creatinine [Mass/Vol] 0.77 mg/dL Normal 0.55 - 1.02 [facility] Comment on above: Performed By: #### 2 67811 #### [facility],[address] [place] [address] 76264 GFR/1.73 sq M.predicted among non-blacks MDRD (S/P/Bld) [Vol rate/Area] mL/min/{1.73_m2} Normal 60 - 999 [facility] Comment on above: Performed By: #### 2 08588 #### [facility],[address] [place] [address] 93286 Result Comment: ACCO RDING TO THE NATIONAL KIDNEY DISEASE EDUCATION PROGRAM(NKDE), A NORMAL eGFR IS A VALUE GREATER THAN OR EQUAL TO 60 ML/MIN/1.73 SQ METERS. CHRONIC KIDNEY DISEASE: <60mL/MIN/1.73 SQ METERS KIDNEY FAILURE: <15mL/MIN/1.73 SQ METERS THIS TEST SHOULD ONLY BE USED FOR PATIENTS 18 YEARS OF AGE AND OLDER. Globulin (S) [Mass/Vol] 3.4 g/dL Normal 1.5 - 3.8 [facility] Comment on above: Performed By: #### 2 31767 #### [facility],[address] [place] [address] 51504 Glucose [Mass/Vol] 106 mg/dL Normal 74 - 106 [facility] Comment on above: Performed By: #### 2 74910 #### [address] [address] Potassium [Moles/Vol] 4.4 mmol/L Normal 3.5 - 5.1 [facility] Comment on above: Performed By: #### 2 01737 #### [address] [address] Protein [Mass/Vol] 6.9 g/dL Normal 6.4 - 8.2 [facility] Comment on above: Performed By: #### 2 92900 #### [facility],[address] [place] [address] 25236 Sodium [Moles/Vol] 144 mmol/L Normal 136 - 145 [facility] Comment on above: Performed By: #### 2 84399 #### [facility],[address] [place] [address] 36332 Urea nitrogen [Mass/Vol] 15 mg/dL Normal 7 - 18 [facility] Comment on above: Performed By: #### 2 99923 #### [facility],[address] [place] [address] 88464 FERRITINon 09-11-2023 Ferritin [Mass/Vol] 53 ng/mL Normal 8 - 388 [facility] Comment on above: Performed By: #### 2 25567 #### [facility],[address] [place] [address] 89372 IRON AND TIBCon 09-11-2023 %SATURATION 15 % Normal [facility] Comment on above: Performed By: #### 2 79169 #### [facility],[address] [place] [address] 19996 Iron [Mass/Vol] 49 ug/dL Low 50 - 170 [facility] Comment on above: Performed By: #### 2 85626 #### [facility],[address] [place] [address] 59920 TIBC 328 ug/dl Normal 250 - 450 [facility] Comment on above: Performed By: #### 2 35941 #### [facility],[address] [place] [address] 37118 UIBC 279 ug/dL Normal 155 - 355 [facility] Comment on above: Performed By: #### 2 71899 #### [facility],[address] [place] [address] 18131 VITAMIN D, 25 HYDROXYon - VitD 26.10 ng/mL Low 30.00 - 100 [facility] Comment on above: Result Comment: 25-O HD3 indicates both endogenous production and supplementation. 25-OHD2 is an indicator of exogenous sources, such as diet or supplementation. Therapy is based on measurement of Total 25-OHD, with levels <20 ng/mL indicative of Vitamin D deficiency, while levels between 20 ng/mL and 30 ng/mL suggest insufficiency. Optimal levels are >=30ng/mL. Vitamin D, 25-OH D3 Not Established Vitamin D, 25-OH D2 Not Established Performed By: #### 2 02562 #### [facility],[address] [place] [address] 81227 STREP A MOLECULAR (POC)on Procedural Control Valid [facility] Strep A (POCT) Negative Negative [facility] HCG QUAL UR B/Oon 05-21-2023 status Negative neg - pos [facility] Quality Check Yes [facility] SONOHYSTEROGRAPHY (SIS) US W HIon 05-21-2023 [facility] HCG QUANTITATIVEon 3 HCG.beta subunit Qn 605.0 m[IU]/mL High <5.0 mIU/mL [facility] URINE OB DIP B/Oon 3 Glucose Ql (U) Negative Neg mg/dL [facility] Protein.monoclonal (U) [Mass/Vol] Negative Neg mg/dL [facility] OBSTETRIC ULTRASOUND WHIon 0 10-12-2022 [facility] PROGESTERONEon 05-10-2022 PROGESTERONE 9.1 ng/mL Normal [facility] Comment on above: Result Comment: REF VALUES MALE <0.3- 1.2 FOLLICULAR PHASE <0.3- 1.4 LUTEAL PHASE 3.3-25.6 MID-LUTEAL PHASE 4.4-28.0 POSTMENOPAUSAL <0.3- 0.7 FEMALES: 1ST TRIMESTER 11.2- 90.0 2ND TRIMESTER 25.6- 89.4 3RD TRIMESTER 48.4-422.5 . Patients receiving DHEA-S supplements may show false elevation of progesterone for results near 1.0 ng/mL. Contact laboratory at [phone] if alternative testing is needed. Performed By: #### P ARLEN #### [facility] [address] [place] [address] Progesterone, Serumon 2021 Progesterone [Mass/Vol] 9.1 ng/mL [facility] [address] Work Phone: Comment on above: REF VALUESMALE <0.3- 1.2 FOLLICULAR PHASE <0.3- 1.4 LUTEAL PHASE 3.3-25.6 MID-LUTEAL PHASE 4.4-28.0POSTMENOPAUSAL <0.3- 0.7 FEMALES: 1ST TRIMESTER 11.2- 90.0 2ND TRIMESTER 25.6- 89.4 3RD TRIMESTER 48.4-422.5 .Patients receiving DHEA-S supplements may show false elevation ofprogesterone for results near 1.0 ng/mL. Contact laboratory [phone] if alternative testing is needed. TSHon 05-10-2022 TSH Qn 2.56 m[IU]/L Normal 0.44 - 3.98 [facility] Comment on above: Result Comment: TSH testing is performed using different testing methodology at [facility] than at other legacy [facility]. Direct result comparisons should only be made within the same method. Performed By: #### T SH2 #### [place] [address] [place] [address] TSH - Thyroid Stimulating Ho rmone, Serumon 05-10-2022 TSH Qn 2.56 m[IU]/L See Below [facility] [address] [place] [address] Work Phone: Comment on above: Reference Range: 0.4 4 - 3.98 TSH testing is performed using different testing methodology at [facility] than at other [facility]. Direct result comparisons should only be made within the same method. LMPon 05-04-2022 Last menstrual period start date 17Apr2022 [facility] [address] [email or web address] Work Phone: [phone] Tobacco use status CPHS a) Yes [facility] [email or web address] Work Phone: [phone] LMP Yes [facility] [address] [email or web address] Work Phone: [phone] SENIOR ASSET MANAGER - Office Visiton 04-11 SENIOR ASSET MANAGER - Office Visit Diagnoses/Problems Assessed Fertility testing (V26.21) (Z31.41) Orders Progesterone, Serum; Status:Active; Requested for:[id number]; TSH - Thyroid Stimulating Hormone, Serum; Status:Active; Requested for:[id number]; Tobacco Use Screening; Status:Complete; Done: [id number] Provider Impressions Plan progesterone and TSH draw 7 days from LH surge this month disc. risks of ovarian hyperstimulation given pt's particular circumstances disc. may be reasonable to explore semen analysis prior to additional interventions Reassured re PCOS diagnosis given hx of several healthy pregnancies and monthly menses Gave info on RE providers. Pt. and partner to consider f/u with physician here or with RE per their preference Will call with laboratory results RTO annual exam and PRN Chief Complaint NEW PT HERE TODAY WITH CONCERNS OF TRYING TO CONCEIVE. PT HAS THREE CHILDREN AND HAD A TUBAL AFTER. PT THEN GOT IT REVERSED TO HAVE MORE CHILDREN. IN 2020 PT HAD AN ECTOPIC AND HAS NOT BEEN ABLE TO CONCEIVE SINCE. PT STATES THE PEAK OF HER OVULATION SHE BLEEDS AFTER INTERCOURSE AND HAS SOME CRAMPING. LMP 04/17/22 History of Present IllnessPt. presents for fertility consult Hx of 4 term pregnancies and tubal ligation Pt. subsequently had tubal ligation reversal 06/2021, had ectopic 08/30 and lost R tube. Pt. and partner unable to conceive since that time. Current partner has not fathered a child and has not had semen analysis Pt. reports +L HSG since procedure Pt. also reports hx of PCOS dx prior to 100 lb weight loss, pt. notes she has had monthly menses since weight loss which she largely attributes to keto diet Pt. sees + LH surge monthly and times intercourse accordingly Pt. reports occasional spotting following intercourse Review of Systems Constitutional: no fever and no chills. Past Medical History Problems History of Delivery of by section (669.70) (O82) 06/30/11 41 WEEKS MALE 9LBS 10OZ 02/02/15 39 WEEKS MALE 10LBS 3OZ 11/29/17 39 WEEKS FEMALE 8LBS 16OZ History of Ectopic , tubal (633.10) (O00.109) 09/07/21 History of miscarriage (V13.29) (Z87.59) 2009 History of Menstruation AGE 12 Surgical History Problems History of section 2010 2014 2017 History of Tubal ligation 2018 History of Tubal ligation reversal 2020 Family History Mother Family history of asthma (V17.5) (Z82.5) Family history of hypertension (V17.49) (Z82.49) Family history of Psychological disorder Brother Family history of asthma (V17.5) (Z82.5) Grandmother Family history of diabetes mellitus (V18.0) (Z83.3) Family history of Psychological disorder Maternal Great Grandmother Family history of cardiac disorder (V17.49) (Z82.49) Social History Problems Current smoker (305.1) (F17.200) Does not use illicit drugs (V49.89) (Z78.9) Rarely consumes alcohol (V49.89) (Z78.9) Sexually active Allergies Medication sulfa Recorded By: Jake Greenwood; 05/04/2022 9:50:05 AM Current Meds Medication NameInstruction Collagen CAPS Melatonin TABS Vitamins TABS Vitamin C Oral Tablet Chewable Vitals Vital Signs Recorded: [id number] 09:56AM Swizhkog157 Wapshsgcd89 Height5 ft 6 in Cagqxp177 lb 15.44 oz BMI Lghrxduylf90.85 kg/m2 BSA Calculated1.93 Tobacco Usea) Yes Patient encouraged to stop using tobacco productsYes [id number] Physical Exam Constitutional: Alert and in no acute distress. Well developed, well nourished Pulmonary: No respiratory distress Psychiatric: alert and oriented x 3., affect normal to patient baseline, mood: appropriate and judgment and insight: intact Signatures Electronically signed by : KERWIN Byrne APRN-TONEY; May 04 2022 11:21AM EST (Author) Normal [employer] XR HYSTEROSALPINGOGRAMon [facility] Coronavirus 2019on 1 COVID 19 Result DICTAPHONE TRANSCRIBER Abnormal Negative for COVID19 (SARS CoV2) by PCR. [facility] Reference Lab Comment on above: Result Comment: Posi tive for This test was developed and its performance characteristics determined by [facility]'s [facility] [place] This test has been authorized by FDA under an Emergency Use Authorization (EUA). This test has been validated in accordance with the FDA's Guidance Document Policy for Diagnostics Testing in Laboratories Certified to Perform High Complexity Testing under CLIA prior to Emergency use Authorization for Coronavirus Disease 2019 during the Public Health Emergency issued on November 08, 2019. COVID19 (SARS This test was developed and its performance characteristics determined by [facility]'s [facility] [place] This test has been authorized by FDA under an Emergency Use Authorization (EUA). This test has been validated in accordance with the FDA's Guidance Document Policy for Diagnostics Testing in Laboratories Certified to Perform High Complexity Testing under CLIA prior to Emergency use Authorization for Coronavirus Disease 2019 during the Public Health Emergency issued on November 08, 2019. CoV2) by This test was developed and its performance characteristics determined by [facility] [place] This test has been authorized by FDA under an Emergency Use Authorization (EUA). This test has been validated in accordance with the FDA's Guidance Document Policy for Diagnostics Testing in Laboratories Certified to Perform High Complexity Testing under CLIA prior to Emergency use Authorization for Coronavirus Disease 2019 during the Public Health Emergency issued on November 08, 2019. PCR.(*) This test was developed and its performance characteristics determined by [facility] [place] This test has been authorized by FDA under an Emergency Use Authorization (EUA). This test has been validated in accordance with the FDA's Guidance Document Policy for Diagnostics Testing in Laboratories Certified to Perform High Complexity Testing under CLIA prior to Emergency use Authorization for Coronavirus Disease 2019 during the Public Health Emergency issued on November 08, 2019. Coronavirus 2019on 1 COVID 19 Source DICTAPHONE TRANSCRIBER DICTAPHONE TRANSCRIBER Normal [facility] Reference [facility] Auto Diffon 03-29-2019 Basophils (Bld) [#/Vol] 0.0 E3/mcL Normal 0.0-0.2 [facility] Comment on above: Order Comment: Order Added by Discern Expert. Performed By: #### 2 [id number] #### NITHYA BustilloHemo [address] [place] [address] 31809 Basophils/100 WBC (Bld) 0.4 % Normal 0.0-2.0 [facility] Comment on above: Order Comment: Order Added by Discern Expert. Performed By: #### 2 [id number] #### NITHYA BustilloHemo [address] [place] [address] 33687 Eos Absolute 0.1 E3/mcL Normal 0.0-0.7 [facility] Comment on above: Order Comment: Order Added by Discern Expert. Performed By: #### 2 782576 #### NITHYA RemHemo [address] [place] [address] Eosinophils/100 WBC (Bld) 0.7 % Normal 0.0-11.0 [facility] Comment on above: Order Comment: Order Added by Discern Expert. Performed By: #### 2 613698 #### NITHYA RemHemo [address] [place] [address] 51623 Lymphocytes (Bld) [#/Vol] 1.4 E3/mcL Normal 1.2-3.4 [facility] Comment on above: Order Comment: Order Added by Discern Expert. Performed By: #### 2 184431 #### NITHYA RemHemo [address] [place] [address] 08073 Lymphocytes/100 WBC (Bld) 10.8 % Low 20.0-55.0 [facility] Comment on above: Order Comment: Order Added by Discern Expert. Performed By: #### 2 722274 #### NITHYA RemHemo [address] [place] [address] [place] Absolute 0.8 E3/mcL High 0.0-0.7 [facility] Comment on above: Order Comment: Order Added by Discern Expert. Performed By: #### 2 841443 #### NITHYA RemHemo [address] [place] [address] Monocytes/100 WBC (Bld) 5.9 % Normal 0.0-10.[address] [facility] Comment on above: Order Comment: Order Added by Discern Expert. Performed By: #### 2 [id number] #### NITHYA RemHemo [address] [place] [address] Neutro Absolute 10.9 E3/mcL High 1.4-6.5 [facility] Comment on above: Order Comment: Order Added by Discern Expert. Performed By: #### 2 342593 #### NITHYA RemHemo [address] [place] [address] Neutro Auto 82.2 % High 37.0-75.0 [facility] Comment on above: Order Comment: Order Added by Discern Expert. Performed By: #### 2 312505 #### NITHYA BustilloHemo [address] [place] [address] CBC w/ Auto Diffon Erythrocyte distribution width (RBC) [Ratio] 13.8 % Normal 11.5-14.5 [facility] Comment on above: Performed By: #### 2 550579 #### NITHYA BustilloHemo [facility] [place] [address] Hematocrit (Bld) [Volume fraction] 36.7 % Normal 36.0-48.0 [facility] Comment on above: Performed By: #### 2 601016 #### NITHYA BustilloHemo [address] [place] [address] 53334 Hemoglobin (Bld) [Mass/Vol] 12.2 g/dL Normal 12.0-16.0 [facility] Comment on above: Performed By: #### 2 591948 #### NITHYA BustilloHemo [address] [place], [place] [address] MCH (RBC) [Entitic mass] 28.2 pg Normal 27.0-31.0 [facility] Comment on above: Performed By: #### 2 467898 #### NITHYA BustilloHemo [address] [place], [place] [address] MCHC (RBC) [Mass/Vol] 33.2 g/dL Normal 33.0-37.0 [facility] Comment on above: Performed By: #### 2 320902 #### NITHYA BustilloHemo [address] [place] [address] 25423 MCV (RBC) [Entitic vol] 85.0 fL Normal 78.0-100.0 [facility] Comment on above: Performed By: #### 2 885162 #### NITHAY BustilloHemo [facility] [place] [address] Platelet mean volume (Bld) [Entitic vol] 8.0 fL Normal 7.4-11.0 [facility] Comment on above: Performed By: #### 2 056745 #### NITHYA BustilloHemo [facility] [place] [address] Platelets (Bld) [#/Vol] 265 E3/mcL Normal 130-400 [facility] Comment on above: Performed By: #### 2 232517 #### NITHYA BustilloHemo [address] [place] [address] RBC (Bld) [#/Vol] 4.31 E6/mcL Normal 3.90-5.40 [facility] Comment on above: Performed By: #### 2 952142 #### NITHYA BustilloHemo [facility] [place] [address] WBC (Bld) [#/Vol] 13.2 E3/mcL High 3.6-11.0 [facility] Comment on above: Performed By: #### 2 663074 #### NITHYA BustilloHemo [address] [place] [address] CMPon 03-29-2019 Albumin [Mass/Vol] 4.1 g/dL Normal 3.4-5.0 [facility] Comment on above: Performed By: #### 2 965320 #### NITHYA [facility] [address] [place] [address] 87558 Albumin/Globulin [Mass ratio] 1.6 {ratio} Normal 1.1-1.9 [facility] Comment on above: Performed By: #### 2 332219 #### [facility]YA [facility] [address] [place] [address] 98472 Alk Phos 52 Int._Unit/L Normal 33-110 [facility] Comment on above: Performed By: #### 2 325430 #### NITHYA [facility] [address] [place] [address] ALT [Catalytic activity/Vol] 8 Int._Unit/L Normal 7-45 [facility] Comment on above: Performed By: #### 2 192203 #### NITHYA [facility] [address] [place] [address] Anion gap [Moles/Vol] 12 mmol/L Normal 10-20 [facility] Comment on above: Performed By: #### 2 686966 #### NITHYA [facility] [address] [place] [address] AST [Catalytic activity/Vol] 10 Int._Unit/L Normal 9-39 [facility] Comment on above: Performed By: #### 2 150209 #### NITHYA [facility] [address] [place] [address] Bili Total 0.26 mg/dL Normal 0.00-1.20 [facility] Comment on above: Performed By: #### 2 758028 #### NITHYA [facility] [address] [place] [address] Calcium [Mass/Vol] 9.2 mg/dL Normal 8.6-10.3 [facility] Comment on above: Performed By: #### 2 146863 #### NITHYA [facility] [address] [place] [address] Chloride [Moles/Vol] 105 mmol/L Normal 98-107 [facility] Comment on above: Performed By: #### 2 505478 #### NITHYA [employer] [facility] [place] [address] CO2 [Moles/Vol] 25.0 mmol/L Normal 21.0-32.0 [facility] Comment on above: Performed By: #### 2 068292 #### NITHYA [employer] [facility] [place] [address] Creatinine [Mass/Vol] 0.9 mg/dL Normal 0.5-1.1 [facility] Comment on above: Performed By: #### 2 649765 #### NITHYA [facility] [address] [place] [address] Globulin (S) [Mass/Vol] 3.0 g/dL Normal 2.0-4.0 [facility] Comment on above: Performed By: #### 2 433761 #### NITHYA [facility] [address] [place] [address] Glucose [Mass/Vol] 130 mg/dL High 70-99 [facility] Comment on above: Performed By: #### 2 596101 #### NITHYA [facility] [address] [place] [address] Potassium [Moles/Vol] 3.4 mmol/L Low 3.5-5.3 [facility] Comment on above: Performed By: #### 2 223705 #### NITHYA [facility] [address] [place] [address] Protein [Mass/Vol] 6.7 g/dL Normal 6.4-8.2 [facility] Comment on above: Performed By: #### 2 629682 #### NITHYA [facility] [address] [place] [address] Sodium [Moles/Vol] 139 mmol/L Normal 136-145 [facility] Comment on above: Performed By: #### 2 645266 #### NITHYA [facility] [address] [place] [address] Urea nitrogen [Mass/Vol] 15 mg/dL Normal 6-23 [facility] Comment on above: Performed By: #### 2 848150 #### NITHYA [facility] [address] [place] [address] Urea nitrogen/Creatinine [Mass ratio] 16.7 ratio Normal 5.4-30.0 [facility] Comment on above: Performed By: #### 2 822988 #### NITHYA [facility] [address] [place] [address] CT Head or Brain w/o Contras ton 03-29-2019 CT Head or Brain w/o Contrast Exam Date/Time: 03/29/2019 01:45 EDT Reason for Exam: Headache Report STUDY: CT Head or Brain w/o Contrast; 03/29/2019 1:45 am INDICATION: Headache. COMPARISON: None. ACCESSION NUMBER(S): [id number] ORDERING CLINICIAN: Fermin Perez TECHNIQUE: Noncontrast axial CT images of head were obtained with coronal and sagittal reconstructed images. FINDINGS: BRAIN PARENCHYMA: No evidence of acute intraparenchymal hemorrhage, acute large territory ischemic infarct, mass-effect or midline shift. No effacement of cerebral sulci. Rios-white matter distinction is preserved. VENTRICLES and EXTRA-AXIAL SPACES: No acute extra-axial or intraventricular hemorrhage. Ventricles and sulci are age-concordant. PARANASAL SINUSES/MASTOIDS: There are frothy secretions within the ethmoid sinuses and mild mucosal thickening. The left frontal sinus is completely opacified. The visualized mastoid air cells and middle ear compartments are well pneumatized. CALVARIUM/ORBITS: No skull fracture. The orbits and globes are intact to the extent visualized. IMPRESSION: No acute intracranial abnormality. Paranasal sinus disease consisting of inspissated secretions opacified left frontal sinus and frothy secretions and mucosal thickening within the ethmoid sinuses. FINAL REPORT Dictated: 03/29/2019 1:51 am Hector Montague MD Signed (Electronic Signature): 03/29/2019 1:51 am Signed by: Hector Montague MD Technologist: NICKI Normal [facility] U CG [place] 03-29-2019 HCG.beta subunit Qn Negative Normal Neg [facility] Comment on above: Performed By: #### 2 [id number] #### NITHYA RemHemo [facility] [place] [address] eGFRon 03-29-2019 GFR/1.73 sq M predicted among non-blacks MDRD (S/P/Bld) [Vol rate/Area] mL/min/{1.73_m2} Normal [facility] Comment on above: Order Comment: Order Added by Discern Expert. Performed By: #### 2 [id number] #### NITHYA RemHemo [facility] [place] [address] Auto Diffon 09-26-2018 Basophils (Bld) [#/Vol] 0.1 E3/mcL Normal 0.0-0.2 [facility] Comment on above: Order Comment: Order Added by Discern Expert. Performed By: #### 2 [id number] #### NITHYA IwonaHemo [facility] [place] [address] Basophils/100 WBC (Bld) 0.6 % Normal 0.0-2.0 [facility] Comment on above: Order Comment: Order Added by Discern Expert. Performed By: #### 2 [id number] #### NITHYA RemHemo [facility] [place] [address] Eos Absolute 0.2 E3/mcL Normal 0.0-0.7 [facility] Comment on above: Order Comment: Order Added by Discern Expert. Performed By: #### 2 [id number] #### NITHYA IwonaHemo [facility] [place] [address] Eosinophils/100 WBC (Bld) 2.4 % Normal 0.0-11.0 [facility] Comment on above: Order Comment: Order Added by Discern Expert. Performed By: #### 2 [id number] #### NITHYA BustilloHemo [address] [place] [address] Lymphocytes (Bld) [#/Vol] 2.5 E3/mcL Normal 1.2-3.4 [facility] Comment on above: Order Comment: Order Added by Discern Expert. Performed By: #### 2 [id number] #### NITHYA BustilloHemo [address] [place] [address] Lymphocytes/100 WBC (Bld) 29.9 % Normal 20.0-55.0 [facility] Comment on above: Order Comment: Order Added by Discern Expert. Performed By: #### 2 [id number] #### NITHYA RemHemo [address] [place] [address] [place] Absolute 0.6 E3/mcL Normal 0.0-0.7 [facility] Comment on above: Order Comment: Order Added by Discern Expert. Performed By: #### 2 [id number] #### NITHYA BustilloHemo [address] [place] [address] Monocytes/100 WBC (Bld) 7.5 % Normal 0.0-10.[address] [facility] Comment on above: Order Comment: Order Added by Discern Expert. Performed By: #### 2 [id number] #### NITHYA BustilloHemo [address] [place] [address] Neutro Absolute 5.0 E3/mcL Normal 1.4-6.5 [facility] Comment on above: Order Comment: Order Added by Discern Expert. Performed By: #### 2 [id number] #### NITHYA BustilloHemo [address] [place] [address] Neutro Auto 59.6 % Normal 37.0-75.0 [facility] Comment on above: Order Comment: Order Added by Discern Expert. Performed By: #### 2 [id number] #### NITHYA BustilloHemo [address] [place] [address] CBC w/ Auto Diffon 9 Erythrocyte distribution width (RBC) [Ratio] 14.0 % Normal 11.5-14.5 [facility] Comment on above: Performed By: #### 2 [id number] #### NITHYA BustilloHemo [address] [place] [address] Hematocrit (Bld) [Volume fraction] 40.9 % Normal 36.0-48.0 [facility] Comment on above: Performed By: #### 2 [id number] #### NITHYA BustilloHemo [address] [place] [address] Hemoglobin (Bld) [Mass/Vol] 13.6 g/dL Normal 12.0-16.0 [facility] Comment on above: Performed By: #### 2 [id number] #### NITHYA BustilloHemo [address] [place] [address] MCH (RBC) [Entitic mass] 28.2 pg Normal 27.0-31.0 [facility] Comment on above: Performed By: #### 2 [id number] #### NITHYA BustilloHemo [address] [place] [address]67 MCHC (RBC) [Mass/Vol] 33.2 g/dL Normal 33.0-37.0 [facility] Comment on above: Performed By: #### 2 [id number] #### NITHYA BustilloHemo [address] [place] [address] 24055 MCV (RBC) [Entitic vol] 85.0 fL Normal 78.0-100.0 [facility] Comment on above: Performed By: #### 2 [id number] #### NITHYA BustilloHemo [address] [place] [address] 14080 Platelet mean volume (Bld) [Entitic vol] 9.0 fL Normal 7.4-11.0 [facility] Comment on above: Performed By: #### 2 [id number] #### NITHYA BustilloHemo [address] [place] [address] Platelets (Bld) [#/Vol] 252 E3/mcL Normal 130-400 [facility] Comment on above: Performed By: #### 2 [id number] #### NITHYAAlexandro BustilloHemo [facility] [place] [address] RBC (Bld) [#/Vol] 4.81 E6/mcL Normal 3.90-5.40 [facility] Comment on above: Performed By: #### 2 536408 #### NITHYA IwonaHemo [address] [place] [address] WBC (Bld) [#/Vol] 8.3 E3/mcL Normal 3.6-11.0 [facility] Comment on above: Performed By: #### 2 [id number] #### NITHYA IwonaHemo [address] [place], [place] [id number] CMPon 09-26-2018 Albumin [Mass/Vol] 4.3 g/dL Normal 3.4-5.0 [facility] Comment on above: Performed By: #### 2 [id number] #### NITHYA [employer] [address] [place], [place] [address] Albumin/Globulin [Mass ratio] 1.3 {ratio} Normal 1.1-1.9 [facility] Comment on above: Performed By: #### 2 [id number] #### [facility] [employer] [address] [place] [address] Alk Phos 73 Int._Unit/L Normal 33-110 [facility] Comment on above: Performed By: #### 2 [id number] #### NITHYA [employer] [address] [place], [place] [id number] ALT [Catalytic activity/Vol] 10 Int._Unit/L Normal 7-45 [facility] Comment on above: Performed By: #### 2 [id number] #### NITHYA [employer] [address] [place] [address] Anion gap [Moles/Vol] 11 mmol/L Normal 10-20 [facility] Comment on above: Performed By: #### 2 [id number] #### [facility] [employer] [address] [place] [address] 37167 AST [Catalytic activity/Vol] 14 Int._Unit/L Normal 9-39 [facility] Comment on above: Performed By: #### 2 [id number] #### NITHYA [employer] [address] [place] [address] Bili Total 0.40 mg/dL Normal 0.00-1.20 [facility] Comment on above: Performed By: #### 2 [id number] #### NITHYA [employer] [address] [place] [address] Calcium [Mass/Vol] 9.5 mg/dL Normal 8.6-10.3 [facility] Comment on above: Performed By: #### 2 515630 #### NITHYA [employer] [address] [place] [address] Chloride [Moles/Vol] 106 mmol/L Normal 98-107 [facility] Comment on above: Performed By: #### 2 [id number] #### NITHYA [employer] [address] [place] [address] 65349 CO2 [Moles/Vol] 25.0 mmol/L Normal 21.0-32.0 [facility] Comment on above: Performed By: #### 2 [id number] #### NITHYA [employer] [address] [place] [address]391 Creatinine [Mass/Vol] 0.8 mg/dL Normal 0.5-1.1 [facility] Comment on above: Performed By: #### 2 [id number] #### NITHYA [employer] [address] [place] [address] 713[address] Globulin (S) [Mass/Vol] 3.0 g/dL Normal 2.0-4.0 [facility] Comment on above: Performed By: #### 2 [id number] #### [facility] [employer] [address] [place] [address] Glucose [Mass/Vol] 88 mg/dL Normal 70-99 [facility] Comment on above: Performed By: #### 2 [id number] #### [facility] [employer] [address] [place] [address] 11979 Potassium [Moles/Vol] 4.0 mmol/L Normal 3.5-5.3 [facility] Comment on above: Performed By: #### 2 192584 #### NITHYA [employer] [address] [place] [address] 42274 Protein [Mass/Vol] 7.5 g/dL Normal 6.4-8.2 [facility] Comment on above: Performed By: #### 2 [id number] #### NITHYA [employer] [address] [place] [address] 52200 Sodium [Moles/Vol] 138 mmol/L Normal 136-145 [facility] Comment on above: Performed By: #### 2 [id number] #### NITHYA [employer] [address] [place] [address]137 Urea nitrogen [Mass/Vol] 13 mg/dL Normal 6-23 [facility] Comment on above: Performed By: #### 2 [id number] #### NITHYA [employer] [address] [place] [address]235 Urea nitrogen/Creatinine [Mass ratio] 16.2 ratio Normal 5.4-30.0 [facility] Comment on above: Performed By: #### 2 [id number] #### NITHYA [employer] [address] [place] [address] 24065 Free T4on 09-26-2018 Free T4 [Mass/Vol] 0.83 ng/dL Normal 0.58-1.64 [facility] Comment on above: Performed By: #### 2 224396 #### NITHYA [employer] [address] [place] [address] Lipid Profileon 09-26-2018 Cholesterol [Mass/Vol] 225 mg/dL High 0-199 [facility] Comment on above: Result Comment: TOTA L CHOLEESTEROL: <200 NORMAL 200 - 239 BORDERLINE HIGH >240 HIGH Performed By: #### 3 [id number] #### NITHYA [employer] [address] [place] [address]1286 Cholesterol in HDL [Mass/Vol] 37 mg/dL Low 40-60 [facility] Comment on above: Performed By: #### 3 [id number] #### NITHYA [employer] [address] [place] [address]100 Cholesterol in LDL [Mass/Vol] 161 mg/dL High 0-130 [facility] Comment on above: Result Comment: <100 OPTIMAL 100-129 NEAR / ABOVE OPTIMAL 130-159 BORDERLINE HIGH 160-189 HIGH >190 VERY HIGH CALC LDL NOT VALID WHEN TRIGLYCERIDE IS >400 MG/DL Performed By: #### 3 [id number] #### NITHYA [employer] [address] [place] [address]23 Cholesterol in VLDL [Mass/Vol] 27 mg/dL Normal 0-40 [facility] Comment on above: Performed By: #### 3 [id number] #### NITHYA [employer] [address] [place] [address] 11620 Triglyceride [Mass/Vol] 133 mg/dL Normal 0-149 [facility] Comment on above: Result Comment: AGE DESIRABLE BORDERLINE HIGH 91 D - 9 Y 0 - 74 75 - 99 > 100 10 - 19 Y 0 - 89 90 - 129 > 130 20 -24 Y 0 - 114 115 - 149 > 150 > 25 0 - 149 150 - 199 200 - 499 Performed By: #### 3 [id number] #### NITHYA [employer] [facility] [place] [address] TSHon 09-26-2018 TSH Qn 0.98 mcIU/mL Normal 0.30-5.60 [facility] Comment on above: Performed By: #### 2 [id number] #### NITHYA [employer] [address] [place], [place] [address] eGFRon 09-26-2018 GFR/1.73 sq M predicted among non-blacks MDRD (S/P/Bld) [Vol rate/Area] mL/min/{1.73_m2} Normal [facility] Comment on above: Order Comment: Order added by Discern Expert. Performed By: #### 1 [id number] #### NITHYA [employer] [address] [place] [address] Vital Signs Date Time Vital Sign Value Performing Clinician Facility 03-19-2025 15:35-0400 Body mass index (BMI) [Ratio] 39.06 kg/m2 Iker Plotts TRUST EVALUATION SUPERVISOR.CNM Work Phone: [facility] [place] 03-19-2025 15:35-0400 Body temperature 97.81 [degF] Iker Plotts TRUST EVALUATION SUPERVISOR.CNM Work Phone: [facility] [place] 03-19-2025 15:35-0400 Body weight 109.77 kg Iker Plotts TRUST EVALUATION SUPERVISOR.CNM Work Phone: [facility] [place] 03-19-2025 15:35-0400 Diastolic blood pressure 70 mm[Hg] Iker Plotts TRUST EVALUATION SUPERVISOR.CNM Work Phone: [facility] [place] 03-19-2025 15:35-0400 Systolic blood pressure 128 mm[Hg] Iker Plotts TRUST EVALUATION SUPERVISOR.CNM Work Phone: [facility] [place] 03-18-2025 16:53-0400 Body height 167.64 cm Maryjo CABRAL Work Phone: [facility] 03-18-2025 16:53-0400 Body mass index (BMI) [Ratio] 37.9 kg/m2 Maryjo Anguiano DICTAPHONE TRANSCRIBER-C Work Phone: [facility] 03-18-2025 16:53-0400 Body temperature 98.5 [degF] Maryjo Anguiano DICTAPHONE TRANSCRIBER-C Work Phone: [facility] 03-18-2025 16:53-0400 Body weight 106.59 kg Maryjo Anguiano DICTAPHONE TRANSCRIBER-C Work Phone: [facility] 03-18-2025 16:53-0400 Diastolic blood pressure 60 mm[Hg] Maryjo Anguiano DICTAPHONE TRANSCRIBER-C Work Phone: [facility] 03-18-2025 16:53-0400 Heart rate 115 /min Maryjo Anguiano DICTAPHONE TRANSCRIBER-C Work Phone: [facility] 03-18-2025 16:53-0400 Respiratory rate 16 /min Maryjo Anguiano DICTAPHONE TRANSCRIBER-C Work Phone: [facility] 03-18-2025 16:53-0400 SaO2% (BldA) [Mass fraction] 95 % Maryjo Anguiano DICTAPHONE TRANSCRIBER-C Work Phone: [facility] 03-18-2025 16:53-0400 Systolic blood pressure 126 mm[Hg] Maryjo Anguiano DICTAPHONE TRANSCRIBER-C Work Phone: [facility] 03-05-2025 11:13-0400 Body mass index (BMI) [Ratio] 37.93 kg/m2 Elenita Jorgensen MD Work Phone: [facility] [place] 03-05-2025 11:13-0400 Body weight 106.59 kg Elenita Jorgensen MD Work Phone: [facility] [place] 03-05-2025 11:13-0400 Diastolic blood pressure 82 mm[Hg] Elenita Jorgensen MD Work Phone: [facility] [place] 03-05-2025 11:13-0400 Systolic blood pressure 132 mm[Hg] Elenita Jorgensen MD Work Phone: [facility] [place] 02-05-2025 10:29-0400 Body mass index (BMI) [Ratio] 36.64 kg/m2 Iker Bonilla TRUST EVALUATION SUPERVISOR.CNM Work Phone: [facility] [place] 02-05-2025 10:29-0400 Body weight 102.97 kg Iker Bonilla TRUST EVALUATION SUPERVISOR.CNM Work Phone: [facility] [place] 02-05-2025 10:29-0400 Diastolic blood pressure 76 mm[Hg] Iker Bonilla TRUST EVALUATION SUPERVISOR.CNM Work Phone: [facility] [place] 02-05-2025 10:29-0400 Systolic blood pressure 118 mm[Hg] Iker Bonilla TRUST EVALUATION SUPERVISOR.CNM Work Phone: [facility] [place] 01-22-2025 11:22-0400 Body mass index (BMI) [Ratio] 35.77 kg/m2 Frank Lyon MD Work Phone: [facility] [place] 01-22-2025 11:22-0400 Body weight 100.52 kg Frank Lyon MD Work Phone: [facility] [place] 01-22-2025 11:22-0400 Diastolic blood pressure 70 mm[Hg] Frank Lyno MD Work Phone: [facility] [place] 01-22-2025 11:22-0400 Heart rate 78 /min Frank Lyon MD Work Phone: [facility] [place] 01-22-2025 11:22-0400 SaO2% (BldA) [Mass fraction] 98 % Frank Lyon MD Work Phone: [facility] [place] 01-22-2025 11:22-0400 Systolic blood pressure 110 mm[Hg] Frank Lyon MD Work Phone: [facility] [place] 01-13-2025 09:54-0400 Body mass index (BMI) [Ratio] 35.38 kg/m2 Elenita Jorgensen MD Work Phone: [facility] [place] 01-13-2025 09:54-0400 Body weight 99.43 kg Elenita Jorgensen MD Work Phone: [facility] [place] 01-13-2025 09:54-0400 Diastolic blood pressure 72 mm[Hg] Elenita Jorgensen MD Work Phone: [facility] [place] 01-13-2025 09:54-0400 Systolic blood pressure 112 mm[Hg] Elenita Jorgensen MD Work Phone: [facility] [place] 01-06-2025 09:08-0400 Body mass index (BMI) [Ratio] 36.12 kg/m2 Frank Lyon MD Work Phone: [facility] [place] 01-06-2025 09:08-0400 Body temperature 98.8 [degF] Frank Lyon MD Work Phone: [facility] [place] 01-06-2025 09:08-0400 Body weight 101.52 kg Frank Lyon MD Work Phone: [facility] [place] 01-06-2025 09:08-0400 Diastolic blood pressure 74 mm[Hg] Frank Lyon MD Work Phone: [facility] [place] 01-06-2025 09:08-0400 Heart rate 93 /min Frank Lyon MD Work Phone: [facility] [place] 01-06-2025 09:08-0400 Respiratory rate 14 /min Frank Lyon MD Work Phone: [facility] [place] 01-06-2025 09:08-0400 SaO2% (BldA) [Mass fraction] 98 % Frank Lyon MD Work Phone: [facility] [place] 01-06-2025 09:08-0400 Systolic blood pressure 122 mm[Hg] Frank Lyon MD Work Phone: [facility] [place] 12-24-2024 09:39-0400 Body height 167.6 cm Bayron Nunez APRN.CNP Work Phone: [facility] [place] 12-24-2024 09:39-0400 Body mass index (BMI) [Ratio] 34.86 kg/m2 Bayron Haury TRUST EVALUATION SUPERVISOR.DONOR SUPPORT TECHNICIAN Work Phone: [facility] [place] 12-24-2024 09:39-0400 Body weight 97.98 kg Bayron Haury TRUST EVALUATION SUPERVISOR.DONOR SUPPORT TECHNICIAN Work Phone: [facility] [place] 12-24-2024 09:39-0400 Diastolic blood pressure 62 mm[Hg] Bayron Haury TRUST EVALUATION SUPERVISOR.DONOR SUPPORT TECHNICIAN Work Phone: [facility] [place] 12-24-2024 09:39-0400 Systolic blood pressure 116 mm[Hg] Bayron Haury TRUST EVALUATION SUPERVISOR.DONOR SUPPORT TECHNICIAN Work Phone: [facility] [place] 12-02-2024 10:22-0400 Body height 167.6 cm Bayron Bridges TRUST EVALUATION SUPERVISOR.DONOR SUPPORT TECHNICIAN Work Phone: [facility] [place] 12-02-2024 10:22-0400 Body mass index (BMI) [Ratio] 34.34 kg/m2 Bayron Bridges TRUST EVALUATION SUPERVISOR.DONOR SUPPORT TECHNICIAN Work Phone: [facility] [place] 12-02-2024 10:22-0400 Body weight 96.5 kg Bayron Bridges TRUST EVALUATION SUPERVISOR.DONOR SUPPORT TECHNICIAN Work Phone: [facility] [place] 12-02-2024 10:22-0400 Diastolic blood pressure 78 mm[Hg] Bayron Bridges TRUST EVALUATION SUPERVISOR.DONOR SUPPORT TECHNICIAN Work Phone: [facility] [place] 12-02-2024 10:22-0400 Heart rate 67 /min Bayron Bridges TRUST EVALUATION SUPERVISOR.DONOR SUPPORT TECHNICIAN Work Phone: [facility] [place] 12-02-2024 10:22-0400 Systolic blood pressure 125 mm[Hg] Bayron Bridges TRUST EVALUATION SUPERVISOR.DONOR SUPPORT TECHNICIAN Work Phone: [facility] [place] 11-20-2024 09:27-0400 Body mass index (BMI) [Ratio] 34.3 kg/m2 Keyshawn Wells MD Work Phone: [facility] [place] 11-20-2024 09:27-0400 Body weight 96.4 kg Keyshawn Wells MD Work Phone: [facility] [place] 11-20-2024 09:27-0400 Diastolic blood pressure 88 mm[Hg] Keyshawn Wells MD Work Phone: [facility] [place] 11-20-2024 09:27-0400 Heart rate 82 /min Keyshawn Wells MD Work Phone: [facility] [place] 11-20-2024 09:27-0400 Systolic blood pressure 135 mm[Hg] Keyshawn Wells MD Work Phone: [facility] [place] 08-18-2024 13:11-0500 Body mass index (BMI) [Ratio] 34.02 kg/m2 Autumn Holt MD Work Phone: [facility] [place] 08-18-2024 13:11-0500 Body weight 95.6 kg Autumn Holt MD Work Phone: [facility] [place] 08-18-2024 13:11-0500 Diastolic blood pressure 81 mm[Hg] Autumn Holt MD Work Phone: [facility] [place] 08-18-2024 13:11-0500 Heart rate 73 /min Autumn Holt MD Work Phone: [facility] [place] 08-18-2024 13:11-0500 Respiratory rate 16 /min Autumn Holt MD Work Phone: [facility] [place] 08-18-2024 13:11-0500 Systolic blood pressure 115 mm[Hg] Autumn Holt MD Work Phone: [facility] [place] 06-02-2024 11:50-0400 Diastolic blood pressure 77 mm[Hg] Suzi Joan DO Work Phone: [facility] [place] 06-02-2024 11:50-0400 Heart rate 76 /min Suzi Joan DO Work Phone: [facility] [place] 06-02-2024 11:50-0400 Respiratory rate 16 /min Suzi Joan DO Work Phone: [facility] [place] 06-02-2024 11:50-0400 Systolic blood pressure 113 mm[Hg] Suzi Joan DO Work Phone: [facility] [place] 06-02-2024 10:45-0400 Body mass index (BMI) [Ratio] 34.66 kg/m2 Suzi Joan DO Work Phone: [facility] [place] 06-02-2024 10:45-0400 Body weight 97.4 kg Suzi Joan DO Work Phone: [facility] [place] 05-29-2024 09:55-0400 Body height 167.6 cm Suzi Joan DO Work Phone: [facility] [place] 05-29-2024 09:55-0400 Body mass index (BMI) [Ratio] 34.62 kg/m2 Suzi Joan DO Work Phone: [facility] [place] 05-29-2024 09:55-0400 Body weight 97.3 kg Suzi Joan DO Work Phone: [facility] [place] 05-29-2024 09:55-0400 Diastolic blood pressure 75 mm[Hg] Szui Joan DO Work Phone: [facility] [place] 05-29-2024 09:55-0400 Heart rate 85 /min Suzi Joan DO Work Phone: [facility] [place] 05-29-2024 09:55-0400 Systolic blood pressure 120 mm[Hg] Suzi Joan DO Work Phone: [facility] [place] 02-07-2024 14:34-0400 Body mass index (BMI) [Ratio] 34.38 kg/m2 Family Orrum Work Phone: [facility] [place] 02-07-2024 14:34-0400 Body weight 96.62 kg Family Orrum Work Phone: [facility] [place] 02-07-2024 14:34-0400 Diastolic blood pressure 77 mm[Hg] Family Orrum Work Phone: [facility] [place] 02-07-2024 14:34-0400 Heart rate 78 /min Family Mitzi Work Phone: [facility] [place] 02-07-2024 14:34-0400 Systolic blood pressure 113 mm[Hg] Family Orrum Work Phone: [facility] [place] 02-06-2024 11:12-0400 Body height 167.6 cm Bayronguillermina Salcedoman DO Work Phone: [facility] [place] 02-06-2024 11:12-0400 Body mass index (BMI) [Ratio] 34.66 kg/m2 Bayron Ramirez DO Work Phone: [facility] [place] 02-06-2024 11:12-0400 Body weight 97.4 kg Bayron Salcedoman DO Work Phone: [facility] [place] 02-06-2024 11:12-0400 Diastolic blood pressure 85 mm[Hg] Bayron Salcedoman DO Work Phone: [facility] [place] 02-06-2024 11:12-0400 Heart rate 80 /min Bayron Salcedoman DO Work Phone: [facility] [place] 02-06-2024 11:12-0400 Systolic blood pressure 127 mm[Hg] Bayron Ramirez DO Work Phone: [facility] [place] 01-23-2024 15:23-0400 Body mass index (BMI) [Ratio] 33.55 kg/m2 Alia Uribe MD Work Phone: [facility] [place] 01-23-2024 15:23-0400 Body weight 95.71 kg Alia Uribe MD Work Phone: [facility] [place] 01-23-2024 15:23-0400 Diastolic blood pressure 76 mm[Hg] Alia Uribe MD Work Phone: [facility] [place] 01-23-2024 15:23-0400 Systolic blood pressure 118 mm[Hg] Alia Uribe MD Work Phone: [facility] [place] 12-21-2023 10:16-0400 Body weight 94.35 kg Alia Uribe MD Work Phone: [facility] [place] 12-21-2023 10:16-0400 Diastolic blood pressure 70 mm[Hg] Alia Uribe MD Work Phone: [facility] [place] 12-21-2023 10:16-0400 Systolic blood pressure 112 mm[Hg] Alia Uribe MD Work Phone: [facility] [place] 11-23-2023 10:48-0400 Body weight 92.9 kg Yuliya Jackson TRUST EVALUATION SUPERVISOR.CNM Work Phone: [facility] [place] 11-23-2023 10:48-0400 Diastolic blood pressure 68 mm[Hg] Yuliya Jackson TRUST EVALUATION SUPERVISOR.CNM Work Phone: [facility] [place] 11-23-2023 10:48-0400 Systolic blood pressure 120 mm[Hg] Yuliya Jackson TRUST EVALUATION SUPERVISOR.CNM Work Phone: [facility] [place] 10-26-2023 12:55-0500 Body height 168.9 cm Yuliya Jackson TRUST EVALUATION SUPERVISOR.CNM Work Phone: [facility] [place] 10-26-2023 12:55-0500 Body weight 90.36 kg Yuliya Jackson TRUST EVALUATION SUPERVISOR.CNM Work Phone: [facility] [place] 10-26-2023 12:55-0500 Diastolic blood pressure 76 mm[Hg] Yuliya Jackson TRUST EVALUATION SUPERVISOR.CNM Work Phone: [facility] [place] 10-26-2023 12:55-0500 Systolic blood pressure 110 mm[Hg] Yuliya Jackson TRUST EVALUATION SUPERVISOR.CNM Work Phone: [facility] [place] 05-25-2023 13:08-0400 Body temperature 99.19 [degF] Lilly Praisler-Wood TRUST EVALUATION SUPERVISOR.DONOR SUPPORT TECHNICIAN Work Phone: [facility] [place] 05-25-2023 13:08-0400 Body weight 87.73 kg Lilly Praisler-Wood TRUST EVALUATION SUPERVISOR.DONOR SUPPORT TECHNICIAN Work Phone: [facility] [place] 05-25-2023 13:08-0400 Diastolic blood pressure 90 mm[Hg] Lilly Praisler-Wood TRUST EVALUATION SUPERVISOR.DONOR SUPPORT TECHNICIAN Work Phone: [facility] [place] 05-25-2023 13:08-0400 Heart rate 116 /min Lilly Praisler-Wood TRUST EVALUATION SUPERVISOR.DONOR SUPPORT TECHNICIAN Work Phone: [facility] [place] 05-25-2023 13:08-0400 Respiratory rate 20 /min Lilly Praisler-Wood TRUST EVALUATION SUPERVISOR.DONOR SUPPORT TECHNICIAN Work Phone: [facility] [place] 05-25-2023 13:08-0400 SaO2% (BldA) [Mass fraction] 97 % Lilly Maldonado TRUST EVALUATION SUPERVISOR.DONOR SUPPORT TECHNICIAN Work Phone: [facility] [place] 05-25-2023 13:08-0400 Systolic blood pressure 138 mm[Hg] Lilly Maldonado TRUST EVALUATION SUPERVISOR.DONOR SUPPORT TECHNICIAN Work Phone: [facility] [place] 05-21-2023 10:39-0400 Body height 167.6 cm Maggie Martin MD Work Phone: [facility] [place] 05-21-2023 10:39-0400 Body weight 88.45 kg Maggie Martin MD Work Phone: [facility] [place] 05-21-2023 10:39-0400 Diastolic blood pressure 84 mm[Hg] Maggie Martin MD Work Phone: [facility] [place] 05-21-2023 10:39-0400 Heart rate 61 /min Maggie Martin MD Work Phone: [facility] [place] 05-21-2023 10:39-0400 SaO2% (BldA) [Mass fraction] 100 % Maggie Martin MD Work Phone: [facility] [place] 05-21-2023 10:39-0400 Systolic blood pressure 132 mm[Hg] Maggie Martin MD Work Phone: [facility] [place] 05-02-2023 12:19-0400 Body height 167.6 cm Jamie Rodriguez MD Work Phone: [facility] [place] 05-02-2023 12:19-0400 Body weight 87.54 kg Jamie Rodriguez MD Work Phone: [facility] [place] 10-30-2022 09:14-0500 Body weight 91.72 kg Yuliya Jackson APRN.CNM Work Phone: [facility] [place] 10-30-2022 09:14-0500 Diastolic blood pressure 68 mm[Hg] Yuliya Jackson APRN.CNM Work Phone: [facility] [place] 10-30-2022 09:14-0500 Systolic blood pressure 116 mm[Hg] Yuliya Jackson TRUST EVALUATION SUPERVISOR.CNM Work Phone: [facility] [place] 10-23-2022 10:20-0500 Body weight 92.99 kg Iker Bonilla TRUST EVALUATION SUPERVISOR.CNM Work Phone: [facility] [place] 10-23-2022 10:20-0500 Diastolic blood pressure 72 mm[Hg] Iker Bonilla TRUST EVALUATION SUPERVISOR.CNM Work Phone: [facility] [place] 10-23-2022 10:20-0500 Systolic blood pressure 110 mm[Hg] Iker Bonilla TRUST EVALUATION SUPERVISOR.CNM Work Phone: [facility] [place] 10-02-2022 14:35-0500 Body height 170.8 cm Alia Uribe MD Work Phone: [facility] [place] 10-02-2022 14:35-0500 Body weight 89.81 kg Alia Uribe MD Work Phone: [facility] [place] 10-02-2022 14:35-0500 Diastolic blood pressure 64 mm[Hg] Alia Uribe MD Work Phone: [facility] [place] 10-02-2022 14:35-0500 Systolic blood pressure 112 mm[Hg] Alia Uribe MD Work Phone: [facility] [place] 05-04-2022 09:56-0400 Body height 167.64 cm No PCP None [facility] [address] Work Phone: 05-04-2022 09:56-0400 Body mass index (BMI) [Ratio] 29.85 kg/m2 No PCP None [facility] [address] Work Phone: 05-04-2022 09:56-0400 Body surface area Derived from formula 1.93 m2 No PCP None [facility] [address] Work Phone: 05-04-2022 09:56-0400 Body weight 83.9 kg No PCP None [facility] [address] Work Phone: 05-04-2022 09:56-0400 Diastolic blood pressure 68 mm[Hg] No PCP None [place] [address] Work Phone: 05-04-2022 09:56-0400 Systolic blood pressure 112 mm[Hg] No PCP None [address] Work Phone: Encounters Encounter Date Encounter Type Care Provider Facility Start: 07-16-2025 ambulatory Fern Baugh [facility] y:[facility] Start: 03-19-2025 End: 03-19-2025 Patient encounter procedure Iker Bonilla TRUST EVALUATION SUPERVISOR.CNM Work Phone: OB/Gynecology Comment on above: 22 weeks gestation o f (HCC) (Primary Dx); History of delivery affecting (HCC); Urinary tract infection with hematuria, site unspecified Start: 03-19-2025 End: 03-19-2025 [facility] TRUST EVALUATION SUPERVISOR.DONOR SUPPORT TECHNICIAN Work Phone: Psychiatry Comment on above: JOSLYN (generalized anx iety disorder) (Primary Dx); PTSD (post-traumatic stress disorder) Start: 03-18-2025 End: 03-18-2025 Telemedicine consultation with patient [facility] Elena TRUST EVALUATION SUPERVISOR.DONOR SUPPORT TECHNICIAN Work Phone: Psychiatry Start: 03-18-2025 End: 03-18-2025 ambulatory Maryjo CABRAL Work Phone: [facility] Start: 03-18-2025 End: 03-18-2025 Patient encounter procedure Kirill Orozco [facility] Work Phone: Comment on above: APPOINTMENT CANCELLE D (Primary Dx) Start: 03-18-2025 End: 03-19-2025 Telephone encounter Eden Shah MD Work Phone: OB/Gynecology Comment on above: OB UTI Start: 03-11-2025 End: 03-11-2025 [facility] TRUST EVALUATION SUPERVISOR.DONOR SUPPORT TECHNICIAN Work Phone: Psychiatry Comment on above: No-show for appointm ent (Primary Dx); PTSD (post-traumatic stress disorder); JOSLYN (generalized anxiety disorder) Start: 03-06-2025 End: 03-06-2025 Telephone encounter Nurse Rv Mechanic Rama Jasmine Work Phone: Obstetrics/Gynecology Comment on above: PRAF Start: 03-05-2025 End: 03-05-2025 Patient encounter procedure Elenita Jorgensen MD Work Phone: OB/Gynecology Comment on above: History of delivery affecting (HCC) (Primary Dx); Anxiety; Obesity affecting in first trimester, unspecified obesity type (HCC); 20 weeks gestation of (HCC) Start: 03-05-2025 End: 03-05-2025 Patient encounter procedure [employer] 1 [employer] [facility] Comment on above: Encounter for anatomic survey (HCC) (Primary Dx); Encounter for screening for malformation using ultrasound (HCC); 20 weeks gestation of (HCC); Obesity affecting in second trimester, unspecified obesity type (HCC) Start: 03-05-2025 End: 03-05-2025 ambulatory [facility] Facility:[facility] Start: 02-25-2025 End: 02-25-2025 [facility] TRUST EVALUATION SUPERVISOR.DONOR SUPPORT TECHNICIAN Work Phone: Psychiatry Comment on above: PTSD (post-traumatic stress disorder) (Primary Dx); JOSLYN (generalized anxiety disorder) Start: 02-13-2025 End: 02-17-2025 [facility] TRUST EVALUATION SUPERVISOR.DONOR SUPPORT TECHNICIAN Work Phone: Psychiatry Comment on above: Proof Start: 02-11-2025 End: 02-11-2025 [facility] TRUST EVALUATION SUPERVISOR.DONOR SUPPORT TECHNICIAN Work Phone: Psychiatry Comment on above: PTSD (post-traumatic stress disorder) (Primary Dx); JOSLYN (generalized anxiety disorder) Start: 02-05-2025 End: 02-05-2025 Patient encounter procedure [facility] TRUST EVALUATION SUPERVISOR.CNM Work Phone: OB/Gynecology Comment on above: Family history of tr isomy 13 (Primary Dx); History of delivery affecting (HCC); History of reversal of tubal ligation; History of delivery; Supervision of high risk in second trimester (HCC); 16 weeks gestation of (HCC); Anxiety; Supervision of other high risk pregnancies, first trimester (HCC) Encounter for antena stephon screening for malformation using ultrasound (HCC) (Primary Dx); 16 weeks gestation of (HCC); Obesity affecting in second trimester, unspecified obesity type (HCC) Start: 02-05-2025 End: 02-05-2025 ambulatory BAYRON NUNEZ Facility:[facility] Start: 01-29-2025 End: 01-29-2025 ambulatory JASON ENGELHU Facility:[facility] Start: 01-22-2025 End: 01-22-2025 Patient encounter procedure Frank Lyon MD Work Phone: Endocrinology Comment on above: Jose thyroiditi s (Primary Dx) Start: 01-22-2025 End: 01-22-2025 ambulatory FRANK LYON Facility:[facility] Start: 01-20-2025 End: 01-20-2025 ambulatory DEYANIRA MOYER Facility:[facility] Start: 01-13-2025 End: 01-13-2025 Patient encounter procedure Elenita Jorgensen MD Work Phone: OB/Gynecology Comment on above: Family history of tr isomy 13 (Primary Dx); History of delivery affecting (HCC); Obesity affecting in first trimester, unspecified obesity type (HCC) Encounter for antena stephon screening for malformation using ultrasound (HCC) (Primary Dx); 12 weeks gestation of (HCC) Start: 01-13-2025 End: 01-13-2025 ambulatory FRANK LYON Facility:[facility] Start: 01-06-2025 End: 01-06-2025 Patient encounter procedure Frank Lyon MD Work Phone: Endocrinology Comment on above: Jose's disease (Primary Dx) Start: 01-06-2025 End: 01-06-2025 ambulatory FRANK LYON Facility:[facility] Start: 01-02-2025 End: 01-02-2025 ambulatory BAYRON NUNEZ Facility:[facility] Start: 12-31-2024 End: 03-02-2025 Follow-up encounter Bayron Haury TRUST EVALUATION SUPERVISOR.DONOR SUPPORT TECHNICIAN Work Phone: OB/Gynecology Start: 12-25-2024 End: 12-25-2024 Telephone encounter Nikki Hamilton RN Obstetrics/Gynecolog y Comment on above: PRAF (Initial PRAF// ) Start: 12-24-2024 End: 12-25-2024 Patient encounter procedure Bayron Nunez APRN.CNP Work Phone: OB/Gynecology Comment on above: Encounter for superv ision of high risk in first trimester, antepartum (HCC) (Primary Dx); with uncertain dates in first trimester (HCC); with history of ectopic , antepartum (HCC); Obesity affecting in first trimester, unspecified obesity type (HCC); History of delivery; History of reversal of tubal ligation; Screening for cervical cancer; Encounter for screening for human papillomavirus (HPV); Screen for STD (sexually transmitted disease); Family history of trisomy 13; History of delivery of macrosomal infant; History of depression; Nausea and vomiting during (HCC); Jose's disease; History of asthma; Family history of muscular dystrophy; PTSD (post-traumatic stress disorder); Depression with anxiety; History of headache; Heartburn during in first trimester (HCC); Anxiety and depression; Constipation during in first trimester (HCC) Today s appointment Start: 12-24-2024 End: 12-25-2024 ambulatory Bayron Rae APRN.CNP Work Phone: BOATING SAFETY OFFICER [facility] Start: 12-23-2024 End: 12-23-2024 Telephone encounter Bayron Nunez APRN.CNP Work Phone: OB/Gynecology Comment on above: Appointment Start: 12-17-2024 End: 12-17-2024 Refill uSzi Franco DO Work Phone: BOATING SAFETY OFFICER [facility] Comment on above: Refill Request Start: 12-02-2024 End: 12-02-2024 ambulatory BAYRON RAE Facility:[facility] Start: 12-02-2024 End: 12-02-2024 Patient encounter procedure Bayron Rae APRN.CNP Work Phone: BOATING SAFETY OFFICER [facility] Comment on above: with uncer tain viability, single or unspecified fetus (Primary Dx); Confirm viability, history of recurrent miscarriage, ultrasound; Uterine size-date discrepancy, first trimester; Subchorionic hematoma in first trimester, single or unspecified fetus; Early stage of Start: 11-21-2024 End: 11-21-2024 Telephone encounter Fern [facility]jarano RN [facility] Comment on above: PEAC Start: 11-20-2024 End: 11-20-2024 Patient encounter procedure Keyshawn Wells MD Work Phone[facility] Comment on above: Encounter for pregna ncy test, result positive (Primary Dx) Start: 11-20-2024 End: 11-20-2024 ambulatory KEYSHAWN WELLS Facility:[facility] Start: 11-20-2024 End: 11-20-2024 ambulatory KEYSHAWNORLANDO JENSENHOP Facility:[facility] Start: 11-20-2024 End: 11-20-2024 Office outpatient visit 25 minutes Keyshawn Wells MD Work Phone[facility] Comment on above: Encounter for pregna ncy test, result positive (Primary Dx) Start: 11-19-2024 End: 11-19-2024 E-mail encounter from caregiver Autumn Holt MD Work Phone: Rheumatology Start: 11-19-2024 End: 11-19-2024 Follow-up encounter Autumn Holt MD Work Phone: Rheumatology Comment on above: Follow up on labs Start: 11-18-2024 End: 01-18-2025 Follow-up encounter Bayron Ramirez DO Work Phone: BOATING SAFETY OFFICER [facility] Start: 11-18-2024 End: 11-18-2024 Telephone encounter Yin Malone RN BOATING SAFETY OFFICER [facility] Start: 11-17-2024 End: 11-17-2024 ambulatory SUZI FRANCO Facility:[facility] Start: 11-16-2024 End: 01-16-2025 Follow-up encounter Suzi Franco DO Work Phone: Obstetrics & Gynecology Start: 11-15-2024 End: 11-15-2024 ambulatory SUZI FRANCO Facility:[facility] Start: 11-14-2024 End: 01-14-2025 Follow-up encounter Suzi Franco DO Work Phone: Obstetrics & Gynecology Start: 11-13-2024 End: 11-13-2024 ambulatory SUZI FRANCO Facility:[facility] Start: 11-12-2024 End: 11-12-2024 Telephone encounter Fern Bejarano RN BOATING SAFETY OFFICER [facility] Comment on above: PEA Start: 11-11-2024 End: 11-11-2024 ambulatory AUTUMN HOLT Facility:[facility] Start: 11-10-2024 End: 11-12-2024 ambulatory Bayron Ramirez DO Work Phone: BOATING SAFETY OFFICER [facility] Start: 11-10-2024 End: 11-12-2024 Patient encounter procedure Bayron Ramirez DO Work Phone: BOATING SAFETY OFFICER [facility] Comment on above: Schedule an appointm ent Start: 11-10-2024 End: 11-10-2024 Telephone encounter Fern Bejarano RN BOATING SAFETY OFFICER [facility] Comment on above: PEAC Start: 09-19-2024 End: 09-25-2024 ambulatory Autumn Holt MD Work Phone: Rheumatology Start: 09-19-2024 End: 09-25-2024 Patient encounter procedure Autumn Holt MD Work Phone: Rheumatology Comment on above: Blood work Start: 09-02-2024 End: 09-02-2024 ambulatory AUTUMN HOLT Facility:[facility] Start: 09-02-2024 End: 09-02-2024 Patient encounter procedure Autumn Holt MD Work Phone: Rheumatology Comment on above: Arthralgia, unspecif ied joint (Primary Dx); Recurrent loss Start: 09-02-2024 End: 09-02-2024 Telemedicine consultation with patient Autumn Holt MD Work Phone: Rheumatology Start: 08-18-2024 End: 08-18-2024 ambulatory AUTUMN HOLT Facility[facility] Start: 08-18-2024 End: 08-18-2024 Patient encounter procedure Autumn Holt MD Work Phone: Rheumatology Comment on above: Arthralgia, unspecif ied joint (Primary Dx); Recurrent loss; Hair loss Start: 08-06-2024 End: 08-06-2024 ambulatory Frank Lyon MD Work Phone: Endocrinology Comment on above: Thyroid antibody pos itive (Primary Dx) Start: 08-06-2024 End: 08-06-2024 Telemedicine consultation with patient Frank Lyon MD Work Phone: Endocrinology Start: 07-31-2024 End: 07-31-2024 ambulatory [facility] Start: 07-31-2024 Encounter for genera l adult medical examination without abnormal findings [facility] Start: 07-04-2024 End: 07-04-2024 Orders Only Suzi Joan DO Work Phone: Obstetrics & Gynecology Comment on above: Recurrent loss (Primary Dx) Start: 07-01-2024 End: 07-01-2024 ambulatory Suzi Joan DO Work Phone: Obstetrics & Gynecology Comment on above: Bloodwork Start: 06-29-2024 End: 06-29-2024 Orders Only Suzi Joan DO Work Phone: Obstetrics & Gynecology Comment on above: Thyroid antibody pos itive (Primary Dx) Start: 06-27-2024 End: 06-27-2024 ambulatory SUZI JOAN Facility:[facility] Start: 06-19-2024 End: 06-19-2024 ambulatory Suzi Joan DO Work Phone: Obstetrics & Gynecology Comment on above: Recurrent loss 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 (Primary Dx) Start: 06-19-2024 End: 06-19-2024 Telemedicine consultation with patient Suzi Franco DO Work Phone: Obstetrics & Gynecology Start: 06-16-2024 End: 06-16-2024 Telephone encounter Nydia Lacey RN Work Phone: OB/Gynecology Comment on above: [facility] Start: 06-13-2024 ambulatory Maryjo Anguiano NP Facility :[facility] Start: 06-13-2024 End: 06-13-2024 ambulatory SUZIALMA DE LEONT Facility:[facility] Start: 06-12-2024 End: 06-12-2024 Telephone encounter Mildred Malki RN Obstetrics/Gynecolog y Comment on above: [facility] Start: 06-03-2024 End: 06-03-2024 Telephone encounter Nydia Lacey RN Work Phone: OB/Gynecology Comment on above: [facility] Start: 06-03-2024 End: 06-03-2024 [facility] Start: 06-02-2024 End: 06-02-2024 ambulatory [facility] Facility:[facility] Start: 06-02-2024 End: 06-02-2024 ambulatory [facility] Facility:[facility] Start: 06-02-2024 End: 06-02-2024 Patient encounter procedure Suzi Joan DO Work Phone: BOATING SAFETY OFFICER [facility] Comment on above: of unknown anatomic location (Primary Dx); Inappropriate change in quantitative hCG in early ; care for patient with recurrent loss, first trimester; control counseling Start: 05-30-2024 End: 05-30-2024 Telephone encounter Suzi Joan DO Work Phone: Obstetrics & Gynecology Comment on above: [facility] Early loss (Primary Dx) Start: 05-30-2024 End: 05-30-2024 ambulatory Angi Campoverde MD Work Phone: OB/Gynecology Start: 05-30-2024 End: 05-30-2024 Patient encounter procedure Angi Campoverde MD Work Phone: OB/Gynecology Start: 05-29-2024 End: 05-29-2024 ambulatory SUZIALMA DE LEONT Facility:[facility] Start: 05-29-2024 End: 05-29-2024 Telephone encounter Suzi Joan DO Work Phone: Obstetrics & Gynecology Comment on above: [facility] Start: 05-29-2024 End: 05-29-2024 ambulatory [facility] Facility:[facility] Start: 05-29-2024 End: 05-29-2024 ambulatory [facility] Facility:[facility] Start: 05-29-2024 End: 05-29-2024 Patient encounter procedure Suzi Franco DO Work Phone: Obstetrics & Gynecology Comment on above: with histo ry of ectopic , antepartum (Primary Dx); , location unknown with histo ry of ectopic , antepartum (Primary Dx); History of reversal of tubal ligation; , location unknown Start: 05-28-2024 End: 05-28-2024 Telephone encounter Fern Bejarano RN BOATING SAFETY OFFICER [facility] Comment on above: [facility] Start: 05-27-2024 End: 05-27-2024 ambulatory [facility] Facility:[facility] Start: 05-27-2024 End: 05-27-2024 Telephone encounter Fern Bejarano RN BOATING SAFETY OFFICER [facility] Comment on above: [facility] Start: 05-24-2024 End: 05-24-2024 ambulatory [facility] Facility:[facility] Start: 05-22-2024 End: 05-22-2024 ambulatory [facility] Facility:[facility] Start: 05-20-2024 End: 05-20-2024 ambulatory [facility] Facility:[facility] Start: 05-19-2024 End: 05-20-2024 Telephone encounter Kristi Marquez RN BOATING SAFETY OFFICER [facility] Comment on above: [facility] Start: 05-15-2024 End: 05-15-2024 ambulatory Bayron Domingo DO Work Phone: BOATING SAFETY OFFICER [facility] Comment on above: Positive test. Start: 04-09-2024 Telephone encounter [facility] Comment on above: preconception consul t Start: 02-28-2024 ambulatory Jamie bateman MD Work Phone: Reproductive Endocrinology Infertility Comment on above: Letrozole Start: 02-22-2024 End: 02-22-2024 ambulatory Bayron Ramirez DO Work Phone: BOATING SAFETY OFFICER [facility] Comment on above: Good morning Post-operative state (Primary Dx); Maternal care for (suspected) 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, trisomy 13, fetus 1; PCOS (polycystic ovarian syndrome) Start: 02-22-2024 End: 02-22-2024 Telemedicine consultation with patient Bayron Ramirez DO Work Phone: BOATING SAFETY OFFICER [facility] Start: 02-07-2024 End: 02-07-2024 ambulatory MARYJOAlexandro ANGUIANO Facility:[facility] Start: 02-07-2024 End: 02-07-2024 Office outpatient visit 15 minutes [facility] Rv Mechanic Orrum Work Phone: [facility] Comment on above: Known anomaly, antepartum, single or unspecified fetus (Primary Dx); Fetus with trisomy 13, single gestation; History of delivery Start: 02-06-2024 Telephone encounter Crystal Slicer RN Obstetrics/Gynecology Comment on above: Complex Family Plann ing; Coordination Checklist Start: 02-06-2024 End: 02-06-2024 Office outpatient new 45 minutes Bayron Ramirez DO Work Phone: BOATING SAFETY OFFICER [facility] Comment on above: Known anomaly, antepartum, single or unspecified fetus (Primary Dx); Fetus with trisomy 13, single gestation; with history of section, antepartum; Post-operative state Start: 02-05-2024 Telephone encounter Crystal Slicer RN Obstetrics/Gynecology Comment on above: Complex Family Plann ing Start: 01-28-2024 Telephone encounter Crystal Slicer RN Obstetrics/Gynecology Comment on above: PRAF Amniocentesis Result s Start: 01-25-2024 End: 01-25-[address] [facility] Work Phone: Genetic Healthcare Comment on above: Abnormal ultra sound (Primary Dx); Encounter of female for testing for genetic disease carrier status for procreative management; Anxiety with depression Start: 01-25-2024 End: 01-25-2024 Telemedicine consultation with patient Ana Cristina Hernandez [facility] Work Phone: Genetic [facility] Start: 01-24-2024 End: 01-24-2024 Orders Only Ana Cristina Hernandez [facility] Work Phone: Maternal Medicine Comment on above: Abnormal ultra sound (Primary Dx) Suspected anom romulo, antepartum, single or unspecified fetus Start: 01-23-2024 End: 01-23-2024 Patient encounter procedure Rv Mechanic Satya Ultrasound Work Phone: OB/Gynecology Comment on above: Encounter for anatomic survey (Primary Dx); Obesity in ; 19 weeks gestation of ; Suspected anomaly, antepartum, single or unspecified fetus Supervision of high risk in second trimester (Primary Dx); History of delivery; Hx of ectopic ; 19 weeks gestation of Start: 01-17-2024 ambulatory Alia rodriguez MD Work Phone: OB/Gynecology Comment on above: Light headed recentl y Start: 12-21-2023 End: 12-21-2023 Patient encounter procedure Alia Uribe MD Work Phone: OB/Gynecology Comment on above: Supervision of high risk in second trimester (Primary Dx); History of delivery; Hx of ectopic ; 14 weeks gestation of ; Obesity in ; Supervision of other high risk pregnancies, first trimester Start: 12-19-2023 End: 12-19-2023 ambulatory MARYJO [facility] Start: 11-23-2023 End: 11-23-2023 Patient encounter procedure Yuliya Jackson APRN.CNM Work Phone: OB/Gynecology Comment on above: with histo ry of section, antepartum (Primary Dx); Asthma affecting in first trimester; Obesity in Start: 11-12-2023 ambulatory Alia rodriguez MD Work Phone: OB/Gynecology Comment on above: Discharge Start: 11-07-2023 Refill Iker nance APRN.CNM Work Phone: OB/Gynecology Comment on above: Refill Request Start: 10-30-2023 Telephone encounter Nikki Hamilton RN Obstetrics/Gynecology Comment on above: PRAF (Initial PRAF) Start: 10-26-2023 End: 10-26-2023 Patient encounter procedure Yuliya Jackson APRN.CNM Work Phone: OB/Gynecology Comment on above: with uncer tain dates in first trimester (Primary Dx) with uncer tain dates in first trimester (Primary Dx); Encounter for supervision of normal in multigravida; Anxiety and depression; Asthma affecting in first trimester; History of macrosomia in in prior , currently ; with history of section, antepartum; Family history of muscular dystrophy Start: 10-23-2023 ambulatory Yuliya Jackson APRN.CNM Work Phone: OB/Gynecology Comment on above: HCG Start: 09-11-2023 End: 09-11-2023 ambulatory MARYJO [facility] Start: 05-25-2023 End: 05-25-2023 Patient encounter procedure Lilly Maldonado APRN.DONOR SUPPORT TECHNICIAN Work Phone: [facility] Comment on above: Viral bronchitis (Pr imary Dx); Sore throat Start: 05-22-2023 Telephone encounter Zina Higgins TRUST EVALUATION SUPERVISOR.DONOR SUPPORT TECHNICIAN Work Phone: Reproductive Endocrinology Infertility Comment on above: Patient Update Start: 05-21-2023 End: 05-21-2023 Patient encounter procedure Maggie Martin MD Work Phone: Reproductive Endocrinology Infertility Comment on above: History of miscarria ge (Primary Dx); Pre-procedural laboratory examination Start: 05-21-2023 End: 05-21-2023 Patient encounter status Maggie Martin MD Work Phone: [facility] Work Phone: Start: 05-02-2023 End: 05-02-2023 ambulatory Jamie Rodriguez MD Work Phone: Reproductive Endocrinology Infertility Comment on above: History of miscarria ge (Primary Dx); Female infertility; Abnormal uterine bleeding Start: 05-02-2023 End: 05-02-2023 Telemedicine consultation with patient Jamie Rodriguez MD Work Phone: [facility] Start: 10-30-2022 End: 10-30-2022 Office outpatient visit 15 minutes Yuliya Jackson APRN.CNM Work Phone: OB/Gynecology Comment on above: Spontaneous (Primary Dx) Start: 10-23-2022 End: 10-23-2022 Patient encounter procedure Iker Bonilla TRUST EVALUATION SUPERVISOR.CNM Work Phone: OB/Gynecology Comment on above: 7 weeks gestation of (Primary Dx); Spotting complicating , first trimester; Missed Start: 10-16-2022 Telephone encounter Yuliya sandoval APRN.CNM Work Phone: OB/Gynecology Comment on above: Bleeding With Pregna ncy Start: 10-12-2022 End: 10-12-2022 Patient encounter procedure Rv Mechanic Satya Ultrasound Work Phone: OB/Gynecology Comment on above: NO SHOW (Primary Dx) ; Early stage of Start: 10-04-2022 Telephone encounter Crystal Slicer RN Maternal Medicine Comment on above: Crystal Slicer - O ther (PRAF) Start: 10-02-2022 End: 10-02-2022 Patient encounter procedure Alia Uribe MD Work Phone: OB/Gynecology Comment on above: Early stage of pregn megan (Primary Dx) Start: 10-02-2022 End: 10-02-2022 Nursing evaluation of patient and report Nurse Pnob [facility] Work Phone: OB/Gynecology Comment on above: Supervision of high risk , antepartum (Primary Dx); with history of section, antepartum; History of reversal of tubal ligation; with history of ectopic , antepartum; History of macrosomia in in prior , currently ; Family history of muscular dystrophy; History of depression Start: 09-21-2022 Telephone encounter Alia Uribe MD Work Phone: OB/Gynecology Comment on above: Patient Question Start: 09-18-2022 Telephone encounter Crystal Slicer RN Maternal Medicine Comment on above: Crystal Slicer - O ther (OB Navigator pool) Start: 07-23-2022 ambulatory Jamie bateman MD Work Phone: Reproductive Endocrinology Infertility Comment on above: Tube reversal Start: 05-11-2022 Chart Update No PCP None [facility] [address] Work Phone: Start: 05-04-2022 Office outpatient ne w 20 minutes No PCP None [facility] [address] Work Phone: Start: 03-15-2022 ambulatory Elenita Mata Work Phone: [facility] Start: 03-15-2022 Follow-up encounter Elenita rincon MD Work Phone: OB/Gynecology Comment on above: Follow up Start: 01-19-2022 End: 01-19-2022 Subsequent hospital visit by physician Xr Arthro/Inject/Aspr Main A[facility] Radiology Comment on above: Hx of ectopic pregna ncy [Z87.59] Start: 01-17-2022 Telephone encounter Jamie gonzalez MD Work Phone: Reproductive Endocrinology Infertility Comment on above: lmp 5/4 re hsg recom mmended by Dr Elenita Jorgensen Question Procedures Date Procedure Procedure Detail Performing Clinician Start: 03-05-2025 Us preg uterus after 1st trimest 1/1st gestation Iker Bonilla TRUST EVALUATION SUPERVISOR.CNM Work Phone: Start: 02-05-2025 Us preg uterus after 1st trimest 1/1st gestation Bayron Nunez TRUST EVALUATION SUPERVISOR.DONOR SUPPORT TECHNICIAN Work Phone: Start: 01-22-2025 Follow-up visit Follow Up FRANK LYON Start: 01-13-2025 Us preg uterus after 1st trimest 1/1st gestation Bayron Nunez TRUST EVALUATION SUPERVISOR.DONOR SUPPORT TECHNICIAN Work Phone: Start: 01-02-2025 Antibody screen SUZI FRANCO Comment on above: Order Comment: Speci men Type: BLOOD SPECIMEN Ordering Facility: [facility] Address: [address] [place] [address] Performed By: #### T SPN #### [facility] CLIA [id number] [address] [place] [address] [place] Start: 12-24-2024 H/O: section History of delivery Bayron Nunez JUNIOR.DONOR SUPPORT TECHNICIAN Work Phone: Start: 12-02-2024 Us uterus l imited 1/> fetuses Bayron Rae TRUST EVALUATION SUPERVISOR.DONOR SUPPORT TECHNICIAN Work Phone: Start: 11-20-2024 Us uterus l imited 1/> fetuses Keyshawn Wells MD Work Phone: Start: 05-30-2024 Us pelvic nonobstetr ic real-time image complete Suzi Franco DO Work Phone: Start: 05-29-2024 Us uterus l imited 1/> fetuses Suzi Franco DO Work Phone: Start: 01-24-2024 Us guidance amniocen tesdebby img s&i Selena Demarco MD Work Phone: Start: 01-23-2024 Us preg uterus after 1st trimest 09/10 gestation Alia Uribe MD Work Phone: Start: 10-26-2023 Iadna chlamydia trac homatis amplified probe tq Yuliya Jackson TRUST EVALUATION SUPERVISOR.CNM Work Phone: Start: 10-26-2023 Us uterus l imited 1/> fetuses Yuliya Jackson TRUST EVALUATION SUPERVISOR.CNM Work Phone: Start: 05-25-2023 STREP A MOLECULAR (POC) Lilly Maldonado TRUST EVALUATION SUPERVISOR.DONOR SUPPORT TECHNICIAN Work Phone: Start: 05-21-2023 Urine test visual color cmprsn princesss Zina Monaco TRUST EVALUATION SUPERVISOR.DONOR SUPPORT TECHNICIAN Work Phone: Start: 05-21-2023 Saline infus sonohysterography w/color doppler Jamie Rodriguez MD Work Phone: Start: 10-23-2022 URINE OB DIP B/O Monica Bonilla TRUST EVALUATION SUPERVISOR.CNM Work Phone: Start: 10-12-2022 Us preg uterus after 1st trimest 09/10 gestation Alia Uribe MD Work Phone: Start: 10-02-2022 H/O: surgery History of rev ersal of tubal ligation Nurse Pnob [facility] Work Phone: Start: 01-19-2022 Cath & saline/contra st sonohyster/hysterosalpi Theresa To TRUST EVALUATION SUPERVISOR.DONOR SUPPORT TECHNICIAN Work Phone: section No PCP None Comment on above: [phone]; H/O: section History of delivery Alia Uribe MD Work Phone: H/O: section History of delivery Alia Uribe MD Work Phone: H/O: section History of delivery [facility] Work Phone: H/O: section History of delivery affecting (HCC) Elenita Jorgensen MD Work Phone: H/O: section History of delivery affecting (HCC) Iker Bonilla TRUST EVALUATION SUPERVISOR.CNM Work Phone: H/O: section History of delivery affecting (HCC) Elenita Jorgensen MD Work Phone: H/O: section History of delivery affecting (HCC) Iker Bonilla TRUST EVALUATION SUPERVISOR.CNM Work Phone: H/O: surgery History of rever nita of tubal ligation Suzi Franco DO Work Phone: H/O: surgery History of rever nita of tubal ligation Bayron Nunez TRUST EVALUATION SUPERVISOR.DONOR SUPPORT TECHNICIAN Work Phone: H/O: surgery History of rever nita of tubal ligation Iker Bonilla TRUST EVALUATION SUPERVISOR.CNM Work Phone: H/O: tubal ligation History of bilateral tubal ligation Jamie Rodriguez MD Work Phone: Ligation of fallopian tube N o PCP None Comment on above: 2017; Open reversal of fem nile sterilization No PCP None Comment on above: 2020; Plan of Treatment Date Care Activity Detail Author Start: 2052 RSV Vaccine (1 - 1-dose 60+ series) RSV Vaccine (1 - 1-dose 60+ series) [facility] Start: 03-31-2027 HPV TESTING HPV TESTING [facility] Start: 03-31-2027 PAP TESTING PAP TESTING [facility] Start: 03-31-2027 Screening for malignant neoplasm of cervix [facility] Start: 12-24-2025 Screening for malignant neoplasm of cervix Cervical Cancer Screening [facility] Start: 08-06-2025 End: 11-05-2025 Thyrotropin [Units/volume] in Serum or Plasma THYROID STIMULATING HORMONE Lab Routine Thyroid antibody positive Expected: 08/06/2025, Expires: 11/05/2025 [facility] Work Phone: Comment on above: Expected: 08/06/2025, Expires: Start: 07-24-2025 End: 07-24-2025 Patient encounter procedure 07/24/2025 2:00 PM EST Office Visit OB/Gynecology [address] [place] [id number] Fern Baugh MD [address] [place] [id number] 1 week incision check OB/Gynecology Comment on above: 1 week incision check Start: 07-12-2025 End: 10-11-[address]UP[address] ANTICO[address] Lab Routine Recurrent loss Expected: 07/12/2025, Expires: 10/11/2025 [facility] Work Phone: Comment on above: Expected: 07/12/2025, Expires: Start: 07-03-2025 End: 07-03-2025 Patient encounter procedure 07/03/2025 2:00 PM EDT Routine Office Visit OB/Gynecology [address] [place] [id number] Fern Baugh MD [address] [place] [id number] OB - Pre Op C/S 07/16 @ [facility] OB/Gynecology Comment on above: OB - Pre Op C/S 07/16 @ [facility] Start: 05-28-2025 RSV Vaccine (1 - Risk 1-dose series) RSV Vaccine (1 - Risk 1-dose series) [facility] Start: 05-18-2025 RSV Vaccine (1 - Risk 1-dose series) RSV Vaccine (1 - Risk 1-dose series) [facility] Start: 05-11-2025 Influenza vaccination [facility] Start: 04-09-2025 End: 04-09-2025 ambulatory 04/09/2025 10:30 AM EDT [facility] [address] [facility] [address] [place] [address] Jason Elena, TRUST EVALUATION SUPERVISOR.DONOR SUPPORT TECHNICIAN [address] [place] [address] Psychiatry Start: 2025 End: 2025 Patient encounter procedure 2025 9:50 AM EDT Routine Office Visit OB/Gynecology [address] [place] [address] Fern Baugh MD [address] [place] [address] ob OB/Gynecology Comment on above: ob Start: 03-19-2025 End: 03-19-2025 Patient encounter procedure 03/19/2025 3:30 PM EDT Routine Office Visit OB/Gynecology [address] [place] [address] Iker Bonilla APRN.CN [address] [place] [address] Urinary discomfort OB/Gynecology Comment on above: Urinary discomfort Start: 03-19-2025 End: 03-19-2025 ambulatory 03/19/2025 10:30 AM EDT [facility] [address] [facility] [address] [place] [address] Jason Elena, TRUST EVALUATION SUPERVISOR.DONOR SUPPORT TECHNICIAN [address] [place] [address] Psychiatry Start: 03-11-2025 End: 03-11-2025 ambulatory 03/11/2025 4:00 PM EDT [facility] [address] [facility] [address] [place] [address] Jason Elena, TRUST EVALUATION SUPERVISOR.DONOR SUPPORT TECHNICIAN [address] [place] [address] Psychiatry Start: 03-05-2025 End: 03-05-2025 Patient encounter procedure 03/05/2025 11:40 AM EDT Routine Office Visit OB/Gynecology [address] [place], [place] [id number] Elenita Jorgensen MD [address] [place] [address] Anatomy/ OB OB/Gynecology Comment on above: Anatomy/ OB Start: 03-05-2025 End: 03-05-2025 Patient encounter procedure Maternal Medicine Comment on above: Anatomy/ OB anatomy detailed Start: 02-25-2025 End: 02-25-2025 ambulatory 02/25/2025 3:30 PM EDT [facility] [address] [facility] [address] [place] [address] Jason Elena, TRUST EVALUATION SUPERVISOR.DONOR SUPPORT TECHNICIAN [address] [place] [address] Psychiatry Start: 02-11-2025 End: 02-11-2025 ambulatory 02/11/2025 3:30 PM EDT [facility] [address] [facility] [address] [place] [address] Jason Elena, TRUST EVALUATION SUPERVISOR.DONOR SUPPORT TECHNICIAN [address] [place] [address] Psychiatry Start: 02-05-2025 End: 02-05-2026 OBSTETRIC ULTRASOUND WHI OBSTETRIC ULTRASOUND WHI Anc Imaging Routine Family history of trisomy 13 History of delivery affecting (HCC) History of reversal of tubal ligation History of delivery Supervision of high risk in second trimester (HCC) 16 weeks gestation of (HCC) Expected: 02/05/2025, Expires: 02/05/2026 [facility] Work Phone: Comment on above: Expected: 02/05/2025, Expires: Start: 02-05-2025 End: 02-05-2025 Patient encounter procedure Maternal Medicine Comment on above: Early Anatomy Early Anatomy/OB Start: 01-29-2025 End: 01-29-2025 ambulatory 01/29/2025 9:00 AM EDT [facility] [address] [place] [address] Jason Elena, TRUST EVALUATION SUPERVISOR.DONOR SUPPORT TECHNICIAN [address] [place], [place] [id number] virtual new Psychiatry Comment on above: virtual new Start: 01-22-2025 End: 01-22-2025 Patient encounter procedure OB/Gynecology Comment on above: new ob LMP 2 wk f/u-thyroid Start: 01-13-2025 End: 04-14-2025 Thyrotropin [Units/volume] in Serum or Plasma THYROID STIMULATING HORMONE Lab Routine Jose's disease Expected: 01/13/2025, Expires: 04/14/2025 [facility] Work Phone: Comment on above: Expected: 01/13/2025, Expires: Start: 01-13-2025 End: 04-14-2025 THYROXIN, FR BY EQ DIALYSIS/HPLC-TNDMMS THYROXIN, FR BY EQ DIALYSIS/HPLC-TNDMMS Lab Routine Jose's disease Expected: 01/13/2025, Expires: 04/14/2025 [facility] Comment on above: Expected: 01/13/2025, Expires: Start: 01-13-2025 End: 04-14-2025 Thyroxine (T4) free [Mass/volume] in Serum or Plasma T4 FREE/FREE THYROXINE Lab Routine Jose's disease Expected: 01/13/2025, Expires: 04/14/2025 [facility] Comment on above: Expected: 01/13/2025, Expires: Start: 01-13-2025 End: 04-14-2025 Triiodothyronine (T3) Free [Mass/volume] in Serum or Plasma T3, FREE Lab Routine Jose's disease Expected: 01/13/2025, Expires: 04/14/2025 [facility] Comment on above: Expected: 01/13/2025, Expires: Start: 01-13-2025 End: 01-13-2025 Patient encounter procedure Maternal Medicine Comment on above: Nuchal Nuchal/OB Start: 12-24-2024 End: 03-25-2025 ANEMIA REFLEX PANEL ANEMIA REFLEX PANEL Lab Routine Encounter for supervision of high risk in first trimester, antepartum (HCC) 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/24/2024, Expires: 03/25/2025 [facility] Work Phone: Comment on above: 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/24/2024, Expires: Start: 12-24-2024 End: 03-25-2025 Chromosome 21 trisomy [Presence] in Blood or Tissue by Cytogenetics [id number] PLUS Lab Routine Encounter for supervision of high risk in first trimester, antepartum (HCC) Family history of trisomy 13 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/24/2024, Expires: 03/25/2025 [facility] Comment on above: 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/24/2024, Expires: Start: 12-24-2024 End: 03-25-2025 Hemoglobin A1c in Blood HEMOGLOBIN A1C Lab Routine Encounter for supervision of high risk in first trimester, antepartum (HCC) 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/24/2024, Expires: 03/25/2025 [facility] Comment on above: 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/24/2024, Expires: Start: 12-24-2024 End: 03-25-2025 Hepatitis B virus surface Ag [Presence] in Serum HEPATITIS B SURFACE ANTIGEN Lab Routine Encounter for supervision of high risk in first trimester, antepartum (HCC) 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/24/2024, Expires: 03/25/2025 [facility] Comment on above: 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/24/2024, Expires: Start: 12-24-2024 End: 03-25-2025 Hepatitis C virus Ab [Presence] in Serum HEPATITIS C ANTIBODY IA WITH CONFIRMATION Lab Routine Encounter for supervision of high risk in first trimester, antepartum (HCC) 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/24/2024, Expires: 03/25/2025 [facility] Comment on above: 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/24/2024, Expires: Start: 12-24-2024 End: 03-25-2025 HIV 1+2 Ab [Presence] in Serum or Plasma by Immunoassay HIV 1/2 COMBO WITH REFLEX TO DIFFERENTIATION Lab Routine Encounter for supervision of high risk in first trimester, antepartum (HCC) 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/24/2024, Expires: 03/25/2025 [facility] Comment on above: 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/24/2024, Expires: Start: 12-24-2024 End: 12-24-2025 OBSTETRIC ULTRASOUND WHI OBSTETRIC ULTRASOUND WHI Anc Imaging Routine Encounter for supervision of high risk in first trimester, antepartum (HCC) 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/24/2024, Expires: 12/24/2025 [facility] Comment on above: 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/24/2024, Expires: Start: 12-24-2024 End: 03-25-2025 RUBELLA IGG ANTIBODY RUBELLA IGG ANTIBODY Lab Routine Encounter for supervision of high risk in first trimester, antepartum (HCC) 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/24/2024, Expires: 03/25/2025 [facility] Comment on above: 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/24/2024, Expires: Start: 12-24-2024 End: 03-25-2025 SYPHILIS TREPONEMAL W/REFLEX SYPHILIS TREPONEMAL W/REFLEX Lab Routine Encounter for supervision of high risk in first trimester, antepartum (HCC) 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/24/2024, Expires: 03/25/2025 [facility] Comment on above: 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/24/2024, Expires: Start: 12-24-2024 End: 03-25-2025 Thyrotropin [Units/volume] in Serum or Plasma THYROID STIMULATING HORMONE Lab Routine Jose's disease 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/24/2024, Expires: 03/25/2025 [facility] Comment on above: 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/24/2024, Expires: Start: 12-24-2024 End: 03-25-2025 Thyroxine (T4) free [Mass/volume] in Serum or Plasma T4 FREE/FREE THYROXINE Lab Routine Jose's disease 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/24/2024, Expires: 03/25/2025 [facility] Comment on above: 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/24/2024, Expires: Start: 12-24-2024 End: 03-25-2025 TYPE + SCREEN TYPE + SCREEN Blood Bank Routine Encounter for supervision of high risk in first trimester, antepartum (HCC) 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/24/2024, Expires: 03/25/2025 [facility] Comment on above: 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/24/2024, Expires: Start: 12-24-2024 End: 12-24-2024 Patient encounter procedure OB/Gynecology Comment on above: new ob LMP Start: 12-02-2024 End: 12-02-2024 Patient encounter procedure 12/02/2024 10:15 AM EDT Office Visit BOATING SAFETY OFFICER [facility] [address] [address] Bayron Rae APRN.DONOR SUPPORT TECHNICIAN [address] [place] [address] PEAC- viab pocus BOATING SAFETY OFFICER [facility] Comment on above: PEAC- viab pocus Start: 11-20-2024 End: 11-20-2024 Patient encounter procedure 11/20/2024 9:15 AM EDT Office Visit BOATING SAFETY OFFICER [facility] [address] [place] [address] [place] [address] [place] [address] PEAC- viab pocus BOATING SAFETY OFFICER [facility] Comment on above: PEAC- viab pocus Start: 11-13-2024 End: 11-13-2024 ambulatory 11/13/2024 9:15 AM EST Results Only Satya Wilsonn [facility] [address] [place] [address] Satya [facility] Start: 09-25-2024 End: 12-25-[address] L[address] ANTICO[address] Lab Routine Recurrent loss Expected: 09/25/2024, Expires: 12/25/2024 [facility] Work Phone: Comment on above: Expected: 09/25/2024, Expires: Start: 09-02-2024 End: 09-02-2024 Patient encounter procedure 09/02/2024 9:40 AM EST [facility] [address] [id number] [place] [address] [facility] [place], [place] [id number] 2 week f/u virtual Rheumatology Comment on above: 2 week f/u virtual Start: 08-18-2024 End: 11-17-2024 DALE BY IFA WITH REFLEX [facility] Work Phone: Comment on above: Expected: 08/18/2024 (Approximate), Expi res: 11/17/2024 Start: 08-18-2024 End: 11-17-2024 Complement C3 [Mass/volume] in Serum or Plasma [facility] Comment on above: Expected: 08/18/2024 (Approximate), Expi res: 11/17/2024 Start: 08-18-2024 End: 11-17-2024 Complement C4 [Mass/volume] in Serum or Plasma [facility] [place] Comment on above: Expected: 08/18/2024 (Approximate), Expi res: 11/17/2024 Start: 08-18-2024 End: 11-17-2024 Erythrocyte sedimentation rate [facility] [place] Comment on above: Expected: 08/18/2024 (Approximate), Expi res: 11/17/2024 Start: 08-18-2024 End: 11-17-2024 Protein/Creatinine [Mass Ratio] in Urine [facility] [place] Comment on above: Expected: 08/18/2024, Expires: Start: 08-06-2024 End: 08-06-2024 ambulatory 08/06/2024 10:00 AM EST [facility] [address] [place] [id number] Frank Lyon MD [address] [place] [id number] Thyroid antibody positive [R76.8] Endocrinology Comment on above: Thyroid antibody positive [R76.8] Start: 06-23-2024 End: 06-23-2024 Patient encounter procedure 06/23/2024 11:30 AM EDT Office Visit OB/Gynecology [address] [place] [id number] Alia Uribe MD [address] [place] [id number] Incision check OB/Gynecology Comment on above: Incision check Start: 06-19-2024 End: 09-18-2024 B 2 GPI IGG & IGM B 2 GPI IGG & IGM Lab Routine Recurrent loss 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 Expected: 06/19/2024, Expires: 09/18/2024 [facility] [place] Comment on above: Expected: 06/19/2024, Expires: Start: 06-19-2024 End: 09-18-2024 Cardiolipin IgG and IgM panel - Serum ANTI-CARDIOLIPIN AB Lab Routine Recurrent loss 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 Expected: 06/19/2024, Expires: 09/18/2024 [facility] [place] Comment on above: Expected: 06/19/2024, Expires: Start: 06-19-2024 End: 09-18-2024 CHROM WALKER PERIPH CHROM WALKER PERIPH Lab Routine Recurrent loss 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 Expected: 06/19/2024, Expires: 09/18/2024 [facility] Work Phone: Comment on above: Expected: 06/19/2024, Expires: Start: 06-19-2024 End: 09-18-[address] LUPUS ANTICO[address] PL Lab Routine Recurrent loss 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 Expected: 06/19/2024, Expires: 09/18/2024 [facility] [place] Comment on above: Expected: 06/19/2024, Expires: Start: 06-19-2024 End: 09-18-2024 THYROID PEROXIDASE ANTIBODY THYROID PEROXIDASE ANTIBODY Lab Routine Recurrent loss 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 Expected: 06/19/2024, Expires: 09/18/2024 [facility] [place] Comment on above: Expected: 06/19/2024, Expires: Start: 06-19-2024 End: 09-18-2024 Thyrotropin [Units/volume] in Serum or Plasma THYROID STIMULATING HORMONE Lab Routine Recurrent loss 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 Expected: 06/19/2024, Expires: 09/18/2024 [facility] [place] Comment on above: Expected: 06/19/2024, Expires: Start: 06-19-2024 End: 06-19-2024 Follow-up encounter 06/19/2024 1:30 PM EDT [facility] [address] [place] [address] Suzi Franco, DO [address] [place] [address] [id number] IPAS follow up Obstetrics & Gynecology Comment on above: ECWW-jqsi-or IPAS follow up Start: 06-19-2024 End: 06-19-2024 Follow-up encounter 06/19/2024 11:45 AM EDT [facility] [address] [place] [address] Suzi Franco DO [address] [place] [address] [id number] IPAS follow up Obstetrics & Gynecology Comment on above: BOJJ-[id number] IPAS follow up Start: 06-02-2024 End: 09-01-2024 Comprehensive metabolic 2000 panel - Serum or Plasma [facility] Work Phone: Comment on above: Expected: 06/02/2024, Expires: Start: 06-02-2024 End: 06-02-2024 Patient encounter procedure 06/02/2024 10:30 AM EDT Office Visit [employer] [facility] [address] [place] [address] Suzi Franco DO [address] [place] [address] PEAC - PUL abnormal trend [employer] [facility] Comment on above: PEA - PUL abnormal trend Start: 05-30-2024 End: 05-30-2024 Patient encounter procedure 05/30/2024 10:50 AM EDT Routine Office Visit OB/Gynecology [address] [place], [place] [id number] Alia Uribe MD [address] [place] [id number] OB - Pre Op C/S 06/13 @ [facility] OB/Gynecology Comment on above: OB - Pre Op C/S 06/13 @ [facility] Start: 05-30-2024 End: 05-30-2024 ambulatory 05/30/2024 10:45 AM EDT Procedure OB/Gynecology [address] [place] [address] Angi Campoverde MD [address] [place], [place] [id number] PUL OB/Gynecology Comment on above: PUL Start: 05-29-2024 End: 05-29-2024 Patient encounter procedure 05/29/2024 9:45 AM EDT Office Visit Obstetrics & Gynecology [address] [place] [address] Suzi Franco DO [address] [place] [address] PEAC - early viability Obstetrics & Gynecology Comment on above: PEAC - early viability Start: 05-11-2024 Covid-19 Vaccine ( season) Covid-19 Vaccine ( season) [facility] [place] Start: 05-11-2024 Covid-19 Vaccine ( season) Covid-19 Vaccine ( season) [facility] [place] Start: 05-11-2024 Influenza vaccination [facility] [place] Start: 05-11-2024 RSV Vaccine (1 - Risk 1-dose series) RSV Vaccine (1 - Risk 1-dose series) [facility] [place] Start: 02-08-2024 End: 02-08-2024 Admission to same day surgery center 02/08/2024 3:30 PM EDT - 02/08/2024 4:44 PM EDT Surgery [facility] [address] [place], [place] [id number] Suzi Franco DO [address] [place] [address] INDUCED BY D&E [facility] Comment on above: INDUCED BY D&E Start: 02-08-2024 End: 02-08-2024 Induced dilation & evacuation INDUCED BY D&E Known anomaly, antepartum, single or unspecified fetus 02/08/2024 3:30 PM EDT [facility] Start: 02-08-2024 Subsequent hospital visit by physician 02/08/2024 3:30 PM EDT Hospital Encounter [facility] [address] [place], [place] [id number] Suzi Franco DO [address] [place] [address] Known anomaly, antepartum, single or unspecified fetus [O35.9XX0] [facility] Comment on above: Known anomaly, antepartum, single or unspecified fetus [O35.9XX0] Start: 02-07-2024 End: 02-07-2024 Nursing evaluation of patient and report 02/07/2024 2:30 PM EDT Nurse Visit [facility] [address] [phone] l[facility] Comment on above: lams Start: 02-06-2024 End: 05-07-2024 TYPE + SCREEN [facility] Work Phone: Comment on above: Expected: 02/06/2024, Expires: Start: 02-06-2024 End: 02-06-2024 Patient encounter procedure 02/06/2024 11:00 AM EDT Office Visit [employer]ATING SAFETY OFFICER [facility] [address] [place] [address] Bayron Ramirez DO [address] [place], [place] [id number] PEAC/CFP - consents [employer] OFFICER [facility] Comment on above: PEAC/CFP - consents Start: 01-30-2024 End: 01-30-2024 ambulatory 01/30/2024 11:00 AM EDT Procedure Pediatric Cardiology [id number] [place] [address] Claudette Aranda MD [address] [place] [address] echo Pediatric Cardiology Comment on above: echo Start: 01-30-2024 End: 01-30-2024 Patient encounter procedure Pediatric Cardiology Comment on above: suspected [facility] echo follow up, Per Dr. Leila Arnold Start: 01-25-2024 End: 04-25-2024 CARRIER SCREEN, EXPANDED CARRIER SCREEN, EXPANDED Lab Routine Encounter of female for testing for genetic disease carrier status for procreative management Abnormal ultrasound Expected: 01/25/2024, Expires: 04/25/2024 [facility] Work Phone: Comment on above: Expected: 01/25/2024, Expires: Start: 01-25-2024 End: 01-25-2024 Patient encounter procedure 01/25/2024 10:30 AM EDT [facility] [address] [place] [address] Ana Cristina Hernandez LGC [address] [id number] genetic consult/ need to confirm virtual or in person [facility] Comment on above: genetic consult/ need to confirm virtual or in person Start: 01-23-2024 End: 01-22-2025 AMNIOCENTESIS US WHI AMNIOCENTESIS US WHI Anc Imaging Routine Suspected anomaly, antepartum, single or unspecified fetus Expected: 01/23/2024, Expires: 01/22/2025 [facility] Work Phone: Comment on above: Expected: 01/23/2024, Expires: 5 Start: 01-23-2024 End: 01-23-2024 Patient encounter procedure OB/Gynecology Comment on above: Anatomy ob Start: 12-21-2023 End: 12-20-2024 OBSTETRIC ULTRASOUND WHI OBSTETRIC ULTRASOUND WHI Anc Imaging Routine History of delivery Supervision of high risk in second trimester Hx of ectopic 14 weeks gestation of Obesity in 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/21/2023, Expires: 12/20/2024 [facility] Work Phone: Comment on above: 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/21/2023, Expires: 5 Start: 10-26-2023 End: 01-25-2024 CBC panel - Blood by Automated count CBC Lab Routine with uncertain dates in first trimester Encounter for supervision of normal in multigravida Expected: 10/26/2023, Expires: 01/25/2024 [facility] Work Phone: Comment on above: Expected: 10/26/2023, Expires: 4 Start: 10-26-2023 End: 01-25-2024 Hemoglobin A1c in Blood HGB A1C Lab Routine with uncertain dates in first trimester Encounter for supervision of normal in multigravida Expected: 10/26/2023, Expires: 01/25/2024 [facility] Work Phone: Comment on above: Expected: 10/26/2023, Expires: 4 Start: 10-26-2023 End: 01-25-2024 HEMOGLOBIN EVALUATION CASCADE HEMOGLOBIN EVALUATION CASCADE Lab Routine with uncertain dates in first trimester Expected: 10/26/2023, Expires: 01/25/2024 [facility] Work Phone: Comment on above: Expected: 10/26/2023, Expires: 4 Start: 10-26-2023 End: 01-25-2024 Hepatitis B virus surface Ag [Presence] in Serum HEP B SURF AG SCRN Lab Routine with uncertain dates in first trimester Encounter for supervision of normal in multigravida Expected: 10/26/2023, Expires: 01/25/2024 [facility] Work Phone: Comment on above: Expected: 10/26/2023, Expires: Start: 10-26-2023 End: 01-25-2024 Hepatitis C virus Ab [Presence] in Serum HEPATITIS C ANTIBODY IA WITH CONFIRMATION Lab Routine with uncertain dates in first trimester Encounter for supervision of normal in multigravida Expected: 10/26/2023, Expires: 01/25/2024 [facility] Work Phone: Comment on above: Expected: 10/26/2023, Expires: Start: 10-26-2023 End: 01-25-2024 HIV 1+2 Ab [Presence] in Serum or Plasma by Immunoassay HIV 1 2 COMBO(AG/AB),WITH REFLEX TO DIFFERENTIATION Lab Routine with uncertain dates in first trimester Encounter for supervision of normal in multigravida Expected: 10/26/2023, Expires: 01/25/2024 [facility] Work Phone: Comment on above: Expected: 10/26/2023, Expires: 4 Start: 10-26-2023 End: 10-26-2024 NUCHAL TRANSLUCENCY WHI NUCHAL TRANSLUCENCY WHI Anc Imaging Routine with uncertain dates in first trimester Encounter for supervision of normal in multigravida Expected: 10/26/2023, Expires: 10/26/2024 [facility] Work Phone: Comment on above: Expected: 10/26/2023, Expires: 5 Start: 10-26-2023 End: 10-26-2024 OBSTETRIC ULTRASOUND WHI OBSTETRIC ULTRASOUND WHI Anc Imaging Routine with uncertain dates in first trimester Encounter for supervision of normal in multigravida Expected: 10/26/2023, Expires: 10/26/2024 [facility] Work Phone: Comment on above: Expected: 10/26/2023, Expires: 5 Start: 10-26-2023 End: 01-25-2024 RUBELLA IGG AB RUBELLA IGG AB Lab Routine with uncertain dates in first trimester Encounter for supervision of normal in multigravida Expected: 10/26/2023, Expires: 01/25/2024 [facility] Work Phone: Comment on above: Expected: 10/26/2023, Expires: 4 Start: 10-26-2023 End: 01-25-2024 SYPHILIS TOTAL W/REFLEX SYPHILIS TOTAL W/REFLEX Lab Routine with uncertain dates in first trimester Encounter for supervision of normal in multigravida Expected: 10/26/2023, Expires: 01/25/2024 [facility] Work Phone: Comment on above: Expected: 10/26/2023, Expires: 4 Start: 10-26-2023 End: 01-25-2024 TYPE + SCREEN TYPE + SCREEN Blood Bank Routine with uncertain dates in first trimester Encounter for supervision of normal in multigravida Expected: 10/26/2023, Expires: 01/25/2024 [facility] Work Phone: Comment on above: Expected: 10/26/2023, Expires: 4 Start: 09-10-2023 Depression Assessment Depression Assessment [facility] [place] Start: 05-11-2023 Covid-19 Vaccine ( season) Covid-19 Vaccine () [facility] [place] Start: 05-11-2023 Influenza vaccination [facility] [place] Start: 05-02-2023 End: 05-02-2024 SONOHYSTEROGRAPHY (SIS) US WHI SONOHYSTEROGRAPHY (SIS) US WHI Anc Imaging Routine History of miscarriage Expected: 05/02/2023, Expires: 05/02/2024 [facility] Work Phone: Comment on above: Expected: 05/02/2023, Expires: 4 Start: 03-31-2023 Screening for malignant neoplasm of cervix Cervical Cancer Screening [facility] [place] Start: 10-02-2022 End: 12-02-2022 CBC panel - Blood by Automated count CBC Lab Routine Early stage of Expected: 10/02/2022, Expires: 12/02/2022 [facility] Work Phone: Comment on above: Expected: 10/02/2022, Expires: 3 Start: 10-02-2022 End: 12-02-2022 Hepatitis B virus surface Ag [Presence] in Serum HEP B SURF AG SCRN Lab Routine Early stage of Expected: 10/02/2022, Expires: 12/02/2022 [facility] Work Phone: Comment on above: Expected: 10/02/2022, Expires: 3 Start: 10-02-2022 End: 12-02-2022 Hepatitis C virus Ab [Presence] in Serum HEP C AB IA W/CONF SCRN Lab Routine Early stage of Expected: 10/02/2022, Expires: 12/02/2022 [facility] Work Phone: Comment on above: Expected: 10/02/2022, Expires: 3 Start: 10-02-2022 End: 12-02-2022 HIV 1+2 Ab [Presence] in Serum or Plasma by Immunoassay HIV 1 2 COMBO(AG/AB),WITH REFLEX TO DIFFERENTIATION Lab Routine Early stage of Expected: 10/02/2022, Expires: 12/02/2022 [facility] Work Phone: Comment on above: Expected: 10/02/2022, Expires: 3 Start: 10-02-2022 End: 10-02-2023 OBSTETRIC ULTRASOUND WHI OBSTETRIC ULTRASOUND WHI Anc Imaging Routine Early stage of Expected: 10/02/2022, Expires: 10/02/2023 [facility] Work Phone: Comment on above: Expected: 10/02/2022, Expires: 4 Start: 10-02-2022 End: 12-02-2022 RUBELLA IGG AB RUBELLA IGG AB Lab Routine Early stage of Expected: 10/02/2022, Expires: 12/02/2022 [facility] Work Phone: Comment on above: Expected: 10/02/2022, Expires: 3 Start: 10-02-2022 End: 12-02-2022 SYPHILIS TOTAL W/REFLEX SYPHILIS TOTAL W/REFLEX Lab Routine Early stage of Expected: 10/02/2022, Expires: 12/02/2022 [facility] Work Phone: Comment on above: Expected: 10/02/2022, Expires: 3 Start: 10-02-2022 End: 12-02-2022 TYPE + SCREEN TYPE + SCREEN Blood Bank Routine Early stage of Expected: 10/02/2022, Expires: 12/02/2022 [facility] Work Phone: Comment on above: Expected: 10/02/2022, Expires: 3 Start: 09-21-2022 End: 11-21-2022 Progesterone [Mass/volume] in Serum or Plasma [facility] Work Phone: Comment on above: Expected: 09/21/2022, Expires: 3 Start: 09-10-2022 DEPRESSION ASSESSMENT DEPRESSION ASSESSMENT [facility] [place] Start: 05-11-2022 Influenza vaccination [facility] [place] Start: 09-10-2021 DEPRESSION ASSESSMENT DEPRESSION ASSESSMENT [facility] [place] Start: 2013 PAP TESTING PAP TESTING [facility] [place] Start: 2011 Hepatitis B Vaccine (1 of 3 - 19+ 3-dose series) Hepatitis B Vaccine (1 of 3 - 19+ 3-dose series) [facility] [place] Start: 2011 Pneumococcal vaccination Pneumococcal Vaccine (1 of 2 - PCV) [facility] [place] Start: 2011 Urine microalbumin profile [facility] [place] Start: 2010 Annual PCP Team Chronic Disease Visit Annual PCP Team Chronic Disease Visit [facility] [place] Start: 2010 HEPATITIS C SCREENING HEPATITIS C SCREENING [facility] [place] Start: 2010 Hepatitis C screening Hepatitis C Screening [facility] [place] Start: 2010 HIV SCREENING HIV SCREENING [facility] [place] Start: 2010 HIV screening HIV Screening [facility] [place] Start: 2010 Spirometry Spirometry [facility] [place] Start: 2004 Adult depression screening assessment DEPRESSION SCREENING [facility] [place] Start: 1998 Pneumococcal vaccination Pneumococcal Vaccine (1 of 2 - PCV) [facility] [place] Start: 1997 COVID-19 VACCINE (#1) COVID-19 VACCINE (#1) [facility] [place] Start: 1992 COVID-19 VACCINE (#1) COVID-19 VACCINE (#1) [facility] [place] Start: 1992 HEPATITIS B (1 of 3 - 3-dose series) HEPATITIS B (1 of 3 - 3-dose series) [facility] [place] Start: 1992 Hepatitis B Vaccine (1 of 3 - 3-dose series) Hepatitis B Vaccine (1 of 3 - 3-dose series) [facility] [place] Bacteria identified in Urine by Culture URINE CULTURE Microbiology Routine Early stage of 10/02/2022 3:10 PM EST [facility] Work Phone: Bacteria identified in Urine by Culture BACTERIAL CULTURE, URINE Microbiology Routine Encounter for supervision of high risk in first trimester, antepartum (HCC) 12/24/2024 10:28 AM EDT [facility] [place] Bacteria identified in Urine by Culture BACTERIAL CULTURE, URINE Microbiology Routine Urinary tract infection with hematuria, site unspecified 03/19/2025 3:52 PM T [facility] Work Phone: CARRIER SCREEN, EXPANDED CARRIER SCREEN, EXPANDED Lab Routine Encounter of female for testing for genetic disease carrier status for procreative management Abnormal ultrasound 01/30/2024 2:18 PM EDT [facility] [place] End: 02-16-2023 Cath & saline/contrast sonohyster/hysterosalpi XR HYSTEROSALPINGOGRAM Radiology Routine Hx of ectopic 1 Occurrences starting 01/17/2022 until 02/16/2023 [facility] Work Phone: Comment on above: 1 Occurrences starting 01/17/2022 until 02/16/2023 Chlamydia trachomatis+Neisseria gonorrhoeae DNA [Presence] in Unspecified specimen by TAMMIE with probe detection GC/CHLAMYDIA DNA DET Lab Routine Early stage of 10/02/2022 3:10 PM [facility] Work Phone: Chlamydia trachomatis+Neisseria gonorrhoeae DNA [Presence] in Unspecified specimen by TAMMIE with probe detection GONORRHEA/CHLAMYDIA NAAT Lab Routine Encounter for supervision of high risk in first trimester, antepartum (HCC) Screen for STD (sexually transmitted disease) 12/24/2024 10:28 AM EDT [facility] [place] End: 10-10-2022 Choriogonadotropin.beta subunit [Units/volume] in Serum or Plasma HCG QUANTITATIVE Lab Routine , location unknown in first trimester with history of ectopic 3x per week for 6 Occurrences starting 09/18/2022 until 10/10/2022 [facility] Work Phone: Comment on above: 3x per week for 6 Occurrences starting 0 09/18/2022 until 10/10/2022 End: 10-23-2023 Choriogonadotropin.beta subunit [Units/volume] in Serum or Plasma HCG QUANTITATIVE Lab Routine Missed 2x per week for 8 Occurrences starting 10/23/2022 until 10/23/2023 [facility] Work Phone: Comment on above: 2x per week for 8 Occurrences starting 0 10/23/2022 until 10/23/2023 Choriogonadotropin.b eta subunit [Units/volume] in Serum or Plasma HCG QUANTITATIVE Lab Routine Missed 10/23/2022 11:17 AM [facility] Work Phone: End: 11-27-2022 Choriogonadotropin.beta subunit [Units/volume] in Serum or Plasma HCG QUANTITATIVE Lab Routine Spontaneous Once per week for 2 Occurrences starting 10/30/2022 until 11/27/2022, 1 completed [facility] Work Phone: Comment on above: Once per week for 2 Occurrences starting 10/30/2022 until 11/27/2022, 1 completed End: 06-18-2024 Choriogonadotropin.beta subunit [Units/volume] in Serum or Plasma HCG QUANTITATIVE Lab Routine examination or test, unconfirmed 3x per week for 5 Occurrences starting 05/19/2024 until 06/18/2024, 1 completed [facility] Work Phone: Comment on above: 3x per week for 5 Occurrences starting 0 05/19/2024 until 06/18/2024, 1 completed End: 07-11-2024 Choriogonadotropin.beta subunit [Units/volume] in Serum or Plasma HCG QUANTITATIVE Lab Routine of unknown anatomic location Inappropriate change in quantitative hCG in early 3x per week for 5 Occurrences starting 06/02/2024 until 07/11/2024, 1 completed [facility] [place] Comment on above: 3x per week for 5 Occurrences starting 0 06/02/2024 until 07/11/2024, 1 completed End: 11-10-2025 Choriogonadotropin.beta subunit [Units/volume] in Serum or Plasma HCG QUANTITATIVE Lab Routine Encounter for test, result positive 3x per week for 6 Occurrences starting 11/10/2024 until 11/10/2025 [facility] Work Phone: Comment on above: 3x per week for 6 Occurrences starting 0 11/10/2024 until 11/10/2025 CHROMOSOME ANALYSIS, CHORIONIC VILLUS OR AMNIOTIC FLUID CHROMOSOME ANALYSIS, CHORIONIC VILLUS OR AMNIOTIC FLUID Lab Routine Abnormal ultrasound 01/24/2024 12:15 PM EDT [facility] [place] End: 01-23-2025 ECHO ECHO Cardiology Routine Suspected anomaly, antepartum, single or unspecified fetus 1 Occurrences starting 01/24/2024 until 01/23/2025 [facility] Work Phone: Comment on above: 1 Occurrences starting 01/24/2024 until 01/23/2025 FISH, INSIGHT ANALYSIS FISH, INS IGHT ANALYSIS Lab Routine Abnormal ultrasound 01/24/2024 12:15 PM EDT [facility] Work Phone: MISC SEND OUT TST 1 MISC SEND OU T TST 1 Lab Routine Abnormal ultrasound 01/24/2024 12:15 PM EDT [facility] [place] PAP TEST PAP TEST Lab Alicia nguyen Encounter for supervision of high risk in first trimester, antepartum (HCC) Screening for cervical cancer Encounter for screening for human papillomavirus (HPV) 12/24/2024 10:28 AM EDT [facility] [place] SNP MICROAR RAY, AMNIOTIC FLUID, CVS SNP MICROARRAY, AMNIOTIC FLUID, CVS Lab Routine Abnormal ultrasound 01/24/2024 12:15 PM EDT [facility] [place] SURGICAL PATHOLOGY SURGICAL PATH OLOGY Lab Routine of unknown anatomic location Inappropriate change in quantitative hCG in early 06/02/2024 12:01 PM EDT [facility] [place] TRICHOMONAS VAGINALI S NAAT TRICHOMONAS VAGINALIS NAAT Lab Routine Encounter for supervision of high risk in first trimester, antepartum (HCC) Screen for STD (sexually transmitted disease) 12/24/2024 10:28 AM EDT [facility] [place] URINE OB DIP B/O URINE OB DIP B/ O Lab Routine History of delivery Supervision of high risk in second trimester Hx of ectopic 14 weeks gestation of Ordered: 12/21/2023 [facility] Work Phone: Comment on above: Ordered: 12/21/2023 [facility] Payers Date Payer Category Payer Self-pay 2022 Medicaid [id number] 2019 Medicaid [id number] MEDICAID [place] MEDICAID [id number] 2019-Present [phone] [place] [id number] Medicaid [id number] 2019 Medicaid [id number] 1992 Unknown [id number] 1992 Unknown [id number]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 (2,000 unit) cap busPIRone (BUSPAR) 5 mg tablet Take 1 tablet by mouth three times a day. ferrous sulfate (IRON ORAL) Take by mouth. acetaminophen (TYLENOL EXTRA STRENGTH) 500 mg tablet Take 2 tablets by mouth every 8 hours as needed for pain. PNV/iron/omega3/folic acid/min (PRENAT MY-NPOF-VP-EE-ZU5-CAIAT ORAL) Take by mouth. No current facility-administered medications for this visit. ALLERGIES: ALLERGIES Allergen Reactions Sulfa (Sulfonamide * Hives, Shortness of Breath REVIEW OF SYSTEMS: 10 point ROS was reviewed and negative unless indicated in the HPI PHYSICAL EXAM: BP 122/74 (BP Site: Right Arm, BP Position: Sitting, BP Cuff Size: Regular Adult) Pulse 93 Temp 37.1 ?C (98.8 ?F) (Temporal Artery) Resp 14 Wt 101.5 kg (223 lb 12.8 oz) LMP 10/06/2024 SpO2 98% BMI 36.12 kg/m? Body mass index is 36.12 kg/m?. Deferred LABS: Latest Reference Range AND Units 03/23/23 12:17 06/27/24 09:55 01/02/25 10:20 Free T4 0.9 - 1.7 ng/dL 1.2 0.8 (L) TSH 0.270 - 4.200 mIU/L 1.350 1.330 3.580 Free T3 2.3 - 4.1 pg/mL 3.2 THYROID PEROXIDASE ANTIBODY <5.6 IU/mL 18.6 (H) (L): Data (more content not included)... [facility] 01-06-2025 History of Present illness Narrative [facility] Follow up note Consulted by: Suzi Franco DO Chief Complaint: elevated TPO antibodies HPI: This is a 34 year old female who presents for evaluation of elevated TPO antibodies She has 3 kids, underwent tubectomy, and then she had reversal of tubal ligation recently with attempts to getting In February 08, 2024 she had D and E at 22 weeks. She was again but ended in miscarriage. She would like to get before 36 years She has lupus antibody positive as well Reports symptoms of weight gain, cold sensitivity FH: cousin had to have thyroid removed, grand mother had lupus Interval history: 01/06/2025 She is at 11 weeks. This is the 9th , with 3 live children She is taking Zofran for severe sickness, and famotidine She lost some weight, but starting gaining again PAST MEDICAL HISTORY: PAST MEDICAL HISTORY Diagnosis Date Anemia Anxiety Asthma (HCC) Depression Ectopic (HCC) 2021 Fetus with trisomy 13, single gestation (HCC) 02/08/2024 Jose's thyroiditis Hidradenitis suppurativa History of delivery of macrosomal infant 10/02/2022 Hgb A1C at [facility]. Yuliya Jackson APRN.CNM 10/02/2022 Patient's first child weighed 9 pounds 1 ounce at and second child 10 pounds 3 ounces at .TKRN History of depression History of reversal of tubal ligation 10/02/2022 10/02/2022 Patient had a tubal reversal by Dr. Ayala June 2021. 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 06/19/2024 PAST SURGICAL HISTORY: PAST SURGICAL HISTORY Procedure Laterality Date DELIVERY ONLY , low transverse DELIVERY ONLY , low transverse DELIVERY ONLY , low transverse HSG LIG/TRNSXJ FLP TUBE ABDL/VAG APPR UNI/BI 2017 Tubal ligation MANUAL VACUUM ASPIRATION 06/02/2024 SALPINGECTOMY 09/07/2021 RIGHT SIDE - ectopic at [facility] TONSILLECTOMY AND ADENOIDECTOMY HX UNL LAP TUBAL ANASTOMOSIS Bilateral FAMILY HISTORY: FAMILY HISTORY Problem Relation Age of Onset Fibromyalgia Mother other (Endometrosis) Mother other (Rheumatoid Arthritis) Mother Anxiety disorder Mother Depression Mother No Known Problems Father no relationship Asthma Sister Depression Brother Asthma Brother Hypertension Brother Asthma Maternal Grandmother Heart Maternal Grandmother Systemic Lupus Erythematosus Maternal Grandmother Diabetes Maternal Grandmother No Known Problems Maternal Grandfather No Known Problems Daughter No Known Problems Son No Known Problems Son other (trisomy 13) Son Anesthesia Problems No Family History SOCIAL HISTORY: Social History Tobacco Use Smoking status: Never Smokeless tobacco: Never Tobacco comments: Vape Vaping Use Vaping status: Former Start date: 11/27/2024 Substances: Nicotine (OCCASIONAL) Substance Use Topics Alcohol use: Not Currently Comment: Socially Drug use: Never MEDICATIONS: Current Outpatient Medications Medication Sig aspirin, enteric coated (ECOTRIN LOW STRENGTH) 81 mg EC tablet Take 1 tablet by mouth once daily. ondansetron orally disintegrating (ZOFRAN ODT) 4 mg disintegrating tablet Take 1 tablet by mouth every 8 hours as needed for nausea/vomiting. famotidine (PEPCID) 20 mg tablet Take 1 tablet by mouth two times a day. progesterone micronized (PROMETRIUM) 200 mg capsule Use 1 capsule vaginally two times a day. OTC NUTRITIONAL SUPPLEMENT Take by mouth once daily. Myoinstol Cholecalciferol, Vitamin D3, 50 mcg (2,000 unit) cap busPIRone (BUSPAR) 5 mg tablet Take 1 tablet by mouth three times a day. ferrous sulfate (IRON ORAL) Take by mouth. acetaminophen (TYLENOL EXTRA STRENGTH) 500 mg tablet Take 2 tablets by mouth every 8 hours as needed for pain. PNV/iron/omega3/folic acid/min (PRENAT MZ-LFAF-TW-NU-JT4-NDOJW ORAL) Take by mouth. No current facility-administered medications for this visit. ALLERGIES: ALLERGIES Allergen Reactions Sulfa (Sulfonamide * Hives, Shortness of Breath REVIEW OF SYSTEMS: 10 point ROS was reviewed and negative unless indicated in the HPI PHYSICAL EXAM: BP 122/74 (BP Site: Right Arm, BP Position: Sitting, BP Cuff Size: Regular Adult) Pulse 93 Temp 37.1 C (98.8 F) (Temporal Artery) Resp 14 Wt 101.5 kg (223 lb 12.8 oz) LMP 10/06/2024 SpO2 98% BMI 36.12 kg/m Body mass index is 36.12 kg/m . Deferred LABS: Latest Reference Range & Units 03/23/23 12:17 06/27/24 09:55 01/02/25 10:20 Free T4 0.9 - 1.7 ng/dL 1.2 0.8 (L) TSH 0.270 - 4.200 mIU/L 1.350 1.330 3.580 Free T3 2.3 - 4.1 pg/mL 3.2 THYROID PEROXIDASE ANTIBODY <5.6 IU/mL 18.6 (H) (L): Data is abnormally low (H): Data is abnormally high ASSESSMENT : 34 year old female who was initially seen for evaluation of positive TPO abs. Now she is presenting for follow up after conception. Currently 11 weeks Jose's thyroiditis: Complicated by Advised repeating labs after holding biotin supplements for 3 days - adding FT4 by EQ Might start LT4 during to keep TSH at goal for patients with Jose's disease 1. Jose's disease (Primary) - THYROID STIMULATING HORMONE; Future - T4 FREE/FREE THYROXINE; Future - THYROXIN, FR BY EQ DIALYSIS/HPLC-TNDMMS; Future - T3, FREE; Future PLAN: Labs as above FOLLOW UP: in 2 weeks with labs I will communicate by sharing a copy of today's office note to the primary care physician Maryjo Anguiano CNP, DONOR SUPPORT TECHNICIAN and consulting physician Suzi Franco, DO Medical Decision Making: Problems: Moderate: 1+ chronic illnesses with change Data: Unique test result(s) reviewed: 3+ Unique test(s) ordered: 3+ Medical Decision Making Level: 4 - Moderate Frank Lyon MD Endocrinology Associate Staff [facility] Endocrinology and Metabolism [place] [phone] documented in this encounter [facility] 12-25-2024 Telephone encounter Note 1st risk assessment form submitted December 25, 2024. EDMUNDO Villarreal, RN OB Clinical Navigator [phone] [facility] 12-25-2024 Miscellaneous Notes 1st risk assessment form submitted December 25, 2024. EDMUNDO Villarreal, RN OB Clinical Navigator [phone] documented in this encounter [facility] 12-24-2024 Instructions Bayron Nunez APRN.DONOR SUPPORT TECHNICIAN - 12/24/2024 9:29 AM EDT Images from the original note were not included. Please select the following link to access the [facility] Your Guide to a Healthy . [email or web address] [facility] provides specialized care for patients whose experiences may be affected by previous traumatic experiences. The M-Power program is designed to care for patients who have experienced assault, physical or sexual abuse, previous childbirth trauma or other significant life events. Our goal is to provide you with the best experiences and outcomes. Nurses specially trained in trauma-informed care put your needs first, and provide you with confidential and compassionate support.This holistic approach ensures that feel prepared for labor, delivery, and the period. To speak with our team, please call [phone] or email [email or web address] Psychotherapy Services at [facility] Call Behavioral Health Access Line at [phone] to schedule Individual psychotherapy In-person or virtual Wait time for first evaluation may be 12 or more weeks. Wait list spots may be available. Due to the high volume of patients this option is recommended if you are looking for short term acute symptom coping strategies. 3-919-7-QDLY6WRGQ - [place] Maternal Mental Health Hotline If you are in suicidal crisis, please call or text 2-895-237-TALK ( ) or visit the National Suicide Prevention Lifeline website. mchb.hrsa.gov If you are in crisis, call 911 or go to your nearest Emergency Department Here are some links for wonderful Providers here in the community and surrounding areas. Do not hesitate to contact their offices, many are offering virtual visits during this time. Psychotherapy Services outside of [facility] Support International Online Provider Directory https://Open-Xchange/ - can assist in finding providers in your area that might be more extensive then the list below. [facility] [place], [place] [address] [place] [address] [facility] [address] [place] [address] [facility] [address] [place] [address] [facility] [address] [place], [place] [address] Cruzito Mckee MD [address] [place], [place] [address] [facility] [address], [address] [place] [address] [facility] [address] [place] [address] [facility] [place] / [place] [phone]/ [phone] [address] [address] [facility] [address] [facility] [phone] [facility] Counseling and Mediation [place] / Issa [phone] Behavioral health services of [facility] [address] [place] [address]/ keota and arbovale [phone] Maryuri Castillo, RANDALL, CLC [facility] Workshops, telehealth and at home visits. [phone] Humanistic counseling center 20 locations [place], [place], [place], [place], [place], [place], [place], [facility], [place], [place], [place], [facility], [place], [place], [facility], [place], [place] ,[facility], [place], [place],[facility], [facility], [place], [facility], [facility], [place] www.humanisticcounschestnut ridge centercenter.co [phone] Psychotherapy resources outside of [facility] are listed below Holding Space Psychotherapy Web: https://www.H.BLOOMcle.Freight Farms/ Support International Online Provider Directory https://Open-Xchange/ [facility] https://insightcounsC7 Data Centers/ Partners for Behavioral Health and Wellness Web: https://Clever Cloud/ I-Shake for Effective Living Web: https://GelSightliving.Freight Farms/ LifeStance Web: https://Addoway/location/s veronika/[place]/ [facility] Web: https://www.Arav.or / [facility] FND Web: https://QuickBlox.Intelligroup/ Recovery Resources Mental health and substance abuse help Web: https://www.Flatpebble & RESOURCES Support International Direct peer support and connection to professional resources Non-Emergency Helpline Phone: / Text: [phone] Web: https://www..net/ Online Provider Directory: https://Open-Xchange/ Online Support Meetings: https://www..net/get-he lp/mns-cbgbee-nlharit-meetings/ YAYA Baby and Chief Scientific Officer Services Web: https://www1-800-DOCTORS/ MotherToHALO2CLOUDby Expert information on medication use during and Text: [phone] Web: https://Intervolve/ NATIONAL REGISTRY FOR PSYCHIATRIC MEDICATIONS Currently studying the safety of antidepressants, ADHD medications and atypical antipsychotics taken during TO PARTICIPATE CALL TOLL-FREE: Web: https://womenentalhealth.org/re search/pregnancyregistry/ Support Groups: [facility]- Follow on facebook Baby Bistro support group led by [facility] department Resilient Mamas - Support Group [facility].org The POEM support group [phone] Www.poemonline.org Follow on facebook - SENG lopez chapter Online support meetings PSI https://www..net/get-he lp/swb-oajqvs-rrlreel-meetings/ CC momcarmen and me virtual support group 11:30-1pm Support for mothers and new babies and toddlers [place] childbirth education: Childbirth @[facility].org or call [phone] CRISIS: CRISIS HOTLINE [phone], 911 or go to the nearest ER. [facility] [phone] / [facility] [phone] https://www.[facility] medical centerrb.org Crisis text line text the word HOME to [address] [facility] [address] madai [address] [facility] [address] www.Fear Hunters Amber [place] clinical counseling [address] [address] www.Scope Holding space psychotherapy Екатерина Cid [facility] KITCHEN WORK SUPERVISOR-S [address] [facility] www.Minimus Spine [phone]/ [place] [phone] They all offer virtual. All work with trauma Support groups Online support meetings PSI https://www..net/get-he lp/cbr-opngje-ilnzyep-meetings/ Here are the support groups they offer: Support of parents of 1 to 4 years old children POEM ( Outreach and Encouragement for Moms) offers free support for mothers experiencing depression, anxiety, and other mood and anxiety disorders. Masks are recommended but not required. No pre-registration required. Babies in arms welcome. meetings now take place on the and Sunday of each month Location: [facility] [address] [place] [address] Room 122 (library room) 7-8:00 p.m. When you enter the episcopal parking lot off of [address] the entrance door closest to our meeting room is on the front of the building toward the right. For those who are more comfortable with a virtual platform, PO offers online support group options several days of the week. To register for an online group or to find out more about POEM, website at: https://mhaohio.org/get-help/health systemvzid-oufvph-fucukg/poem-services/ offer a confidential helpline: private Facebook group is called SENG John Kern Here are the groups they offer: Traumatic childbirth resources: Http://Shoplins.org/ https://www.BrainScope CompanyjudsonAmerican-Albanian Hemp CompanyrayneU-Systems/ Name Location (s) Phone # (s) Services Website [facility] Psychotherapy [address] [place], [place] - [phone]; [address] [phone] In-Person GROUPS INDIVIDUAL THERAPY MATERNAL- MENTAL HEALTH MEDICATION MANAGEMENT PLAY AND ART THERAPY TELETHERAPY https://www.YOGASMOGA/s ervices/ Chadtone [facility]? [address] [address] ? [address], [address] [place], [place] [address] ? [place] [address]? Grief Support Groups Individual Grief Counseling Spiritual Care Memorial Events https://lopez.[facility].org/grief-services [facility] [address] [place], [place] [address]; ; Email: [email or web address] Media Women's Mental Health; Couples Counseling; Trauma (EMDR); Stress Management; Mood and Anxiety Related Disorders- and much more https://www.Clear-Data Analytics.Freight Farms/ LifeStance Numerous as they have contract providers: access website to find specific providers near you Counseling including CBT and EMDR as well as many more modalities; Medication Management; Telehealth and In-Person https://Retail Convergence.Freight Farms/ Partners for Behavioral Health and Wellness [address] [place], [place] [address]; [phone] Personal, Family and Group Therapy; Psychological Testing and Diagnosis; Medication Management; Life and Career Coaching; Psychoanalysis; Literacy Testing; Yoga and Meditation https://Clever Cloud/ Fit [facility] [address] [facility] [address], [place] [address] [address] ; [address] [facility], [address] [place] [address]; Office # for both sites: Individual and Couples Counseling https://www.BioVascular.Freight Farms/ paymentinsurance.html OCD & Anxiety [facility] [address], [place] [address]; Specialize in Cognitive-Behavioral Therapy (CBT) for the treatment of anxiety disorders across the lifespan. TELEHEALTH ONLY. https://ocdandaGeckoboardietyPalo Alto Health Sciences/faqs [facility] [address] [facility] [address] [place], [address] [address] [address] [facility] [place], [address] [place] [address] [facility] [place], [address] [address] [address] [facility] [place], [address], [address] [place], [address] [address] [place], [address] Transportation Services To minimize patient barriers, [facility] provides transportation services to patients who qualify. If you are unable to get to your appointment at any of our facilities, please let us know. Need help now? Stop by one of our walk-in clinics to establish behavioral health care. Counseling Indvidual, Group, Couples and Family Counseling and EMDR. Medication Management Case Management benefits applications housing assistance Substance abuse treatment Medication assisted treatment https://www.[facility].or g/mental-health/ [facility] OFFICE AT [facility] [address] [place], [place] [address] [facility] OFFICE [address] [place] [address] [facility] OFFICE [address] [place] [address] [facility] OFFICE (at [facility]) [address] [place] [address] [facility] SYRINGE EXCHANGE PROGRAM & HIV SCREENING [address] [place] [address] LABOLT SYRINGE EXCHANGE PROGRAM [address] [place] [address] Behavioral Health Urgent Care: [facility] Counseling Indvidual and Group Medication Management Case Management benefits applications housing assistance Substance abuse treatment Medication assisted treatment Employment Services/ Job Training https://QuickBlox.org/ Recovery Resources [address] [place], [place] [address]: P: [phone] [address] [facility], [address], [place], [place] [address] P: [phone] Our services include: Addiction Mental Health Treatment Assessment Psychiatry Medical Care Employment Housing Drug and Alcohol Prevention HIV/AIDS Prevention [email or web address] [facility] Psychiatry [place] [address] [facility] [address] [place] [address] [place] [address] [place], [place] [address] [place], [place] [address] [place] [address] [place] [address] [place] [address] [facility] [address] [place] [address] [place] [address] [place] [address] TMS Therapy/ Counseling Psychocological Testing for ADHD Medication Management In-Person/ Telemedicine [email or web address] [facility] [address], [place] [address] Neuropsychological Testing For ADHD [email or web address] [facility] Main Office [address] [place] [address] [address] [address] [id number] Providing wgyh-wj-jxfo and telehealth services. Adult Case Management Community Education and Prevention Employment Outpatient Treatment - Counseling & Psychotherapy Psychiatric Services [email or web address] [facility] [address] [place] [address] [facility]) [address] [place] [address] Virtual Appointments! Now offering safe and convenient virtual client appointments to anyone in [place]! Individual Therapy Couples/Relationship Therapy Trauma/EMDR Therapy Art Therapy Play Therapy Web Content & Social Media Manager Support: Parenting Skills, Parent Child Interaction Therapy, Parent Infant Interaction Therapy Meditation Dietitian/Content Strategy Lead Services Group Therapy Yoga [email or web address] [phone] Private Practice: Telehealth Only Specializes in EMDR for Trauma None MORNING SICKNESS IN by Zenaida Pearce M.D. for [employer] As you may already know, morning sickness can often be more appropriately called evening sickness or tqvfe-alidgl-or-the-day sickness. While there are the jose few, most women (50-90%) experience some degree of nausea, some have vomiting, and a few develop a severe form of vomiting during called hyperemesis gravidarum. What causes the nausea and vomiting of ? We can't explain why some people feel fine and others are green for months. Even the same woman may feel vastly different in each . There is some relationship between nausea and the level of the hormone hCG. In twin pregnancies, and in other situations where the hCG is greater than expected, nausea and vomiting tend to be worse. In a destined for miscarriage, hCG levels tend to be low, and nausea is often less severe. This being said, a lack of nausea doesn't guarantee that the is destined for miscarriage. The fact that nausea and vomiting are often signs of a healthy can offer a silver lining in the dark cloud of miserable nausea. How long will the nausea last? Fortunately, for most women, nausea and vomiting are a first trimester event, peaking at week 9-10 and waning by week 14-16. When you are feeling bad the weeks can go by slowly but most moms do feel tremendously better by the middle of the . Whether morning sickness is a brief experience or lasts through most of the , there are treatments that can make the weeks or months more tolerable. What can you do about it? Diet: See what works for you. Try eating bland dry foods, and avoid fatty or spicy foods. It is okay to eat a less than perfectly balanced diet in the first trimester. Have your liquids separately from dry foods. Try sports drinks, water, clear juices, Melecio-aid, or non-caffeinated tea. Avoid carbonated beverages that fill up your stomach. Try eating lots of little meals. If you tend to feel sick when you first wake up, leave crackers next to the bed for a quick snack before rising. Keeping healthy snacks with you all day to nibble when you feel queasy can sometimes even prevent nausea from starting. vitamins and nausea: Pre- vitamins can sometimes worsen nausea in . While folate is necessary, especially early in the , it comes as a smaller pill that many people find more tolerable than the complete vitamin pill. Ask your practitioner if it is okay to temporarily replace vitamins and iron with just a folate pill if you find a significant worsening in the level of your nausea from the vitamins. Alternative therapies: Acupressure may be used to treat nausea in , and is not known to have any risks for the fetus. Wristbands (marketed for seasickness) that put pressure on an acupressure point at the wrist are often available at drugstores or travel stores. Gracie root is used for nausea in many traditional cultures. Some women take fresh grated gracie or gracie tablets. It is possible that the pill form contains other ingredients or contaminants, so you may want to try fresh gracie first. Medications: Emetrol is the only nausea medication approved for use in . It is available over the counter and is soothing to the stomach. A prescription medication called Bendectin was available in the -s and was shown to be safe in , but the company stopped marketing it in the [place] due to the costs of liability coverage. Bendectin contained 10 milligrams of vitamin B6 and 10 milligrams of Doxylamine. Two tablets were given at bedtime and a total of up to 4 tablets could be used in a 24-hour period. Interestingly, Unisom , which contains a higher dose (25 mg.) of the same medication, Doxylamine, is currently marketed as an nfjr-wvy-awicdpa sleeping pill. Ask your practitioner if creating a vitamin B6/Doxylamine combination with cyhs-htj-yhhqyla medications would be safe for you. Prescription medications like Compazine and Phenergan can be used if the benefits outweigh possible risks, but these have not been clearly shown to be safe in . Zofran , an expensive anti-nausea medication often used to treat nausea from chemotherapy, can also be used. Can I throw up so much it harms the baby? The act of vomiting cannot hurt your fetus, which is protected inside the uterus. If you get dehydrated or develop a metabolic imbalance, this can be unhealthy. As long as you can keep down liquids, you and your baby will generally do all right. Eat when you feel able. If you are unable to keep anything down, or if you notice potential signs of dehydration such as lightheadedness, or concentrated and/or infrequent urination, call your practitioner. Some women need brief hospital admission for intravenous fluids and anti-nausea medications if their condition becomes severe. This severe form of nausea and vomiting is called Hyperemesis Gravidarum. As with many symptoms of , remind yourself that this, too, shall pass, and you'll have a wonderful baby to show for it! TREATMENT OPTIONS, SHORT VERSION: Frequent small meals Hydrate throughout day [employer]ands wrist pressure point applicators Gracie root (powdered, in capsules) 250mg four times a day Vitamin B6 25 mg tablet three times a day Also may be taken with half a tablet of Unisom three times a day (Doxylamine 12.5 mg) If severe (weight loss, dehydration), call us and come in for IV hydration and possible medication in the form of injections. Prescription medications such as Phenergan, Compazine, Reglan Ondansetron (Zofran ) April 10, 2020 This sheet talks about exposure to ondansetron in a and while . This information should not take the place of medical care and advice from your healthcare provider. What is ondansetron? Ondansetron is a medication used to treat nausea and vomiting that may be caused by surgery, chemotherapy, or radiation therapy. Ondansetron has also been prescribed during to help with symptoms of nausea and vomiting in (NVP). NVP is also referred to as morning sickness . Ondansetron is taken by mouth, infused into a vein (by IV) or given by injection into a muscle (IM). Ondansetron is sold under the brand name Zofran . What can I do to help control my nausea and vomiting? [employer] has a helpful fact sheet on nausea in with recommendations. You can review it here: https://[employer].org/fact-she ets/fcdkph-izmnhyvf-ulqwcompy-nvp /pdf/. Also, eating small meals often, drinking plenty of clear fluids, and avoiding triggers (such as odors, heat, and spicy or high fat foods) can help. Talk to your healthcare provider about which NVP treatments are right for you. I take ondansetron. Can it make it harder for me to become ? There are no studies that have looked to see if ondansetron could make it harder for a person to get . Studies in animals did not find that ondansetron would affect the ability to get . Does taking ondansetron increase the chance for miscarriage? Miscarriage can occur in any . One study did not find that miscarriage happened more often for those who reported that they used ondansetron in the first trimester of . Does taking ondansetron increase the chance of defects? Every starts out with a 3-5% chance of having a defect. This is called the background risk. Most studies have found no increased chance for defects among thousands of people who used ondansetron in the first trimester of . A few studies reported a very small (less than 1%) increase in the chance for a cleft palate (an opening in the roof of the mouth that may be repaired with surgery) or a heart defect. Because of other factors that could affect the pregnancies exposed to ondansetron, it is not known if ondansetron actually increases the chance of defects. Could taking ondansetron cause other complications? Studies did not find a higher chance of loss, delivery (delivery before 37 weeks of ), or low weight when ondansetron was used during . At higher doses, there have been reports that ondansetron use might cause a heart rhythm problem (called QT interval prolongation) in the person taking ondansetron. In severe cases, this could become an abnormal heart rhythm known as Torsades de Pointes. If you are taking ondansetron, you can talk to your healthcare provider about how to watch for changes in your heart rhythm. Does taking ondansetron in cause long-term problems in behavior or learning for the baby? One study looked at 78 infants who were exposed to ondansetron at any time during . The infants were looked at between 7 days to 2 months of age and did not show any signs of unusual behaviors. A single follow-up survey for about 25 of these children was sent in by the parents. The children were between 1 to 5 years old. The survey asked about behavior. The surveys did not report behavior differences in these children compared to children who were not exposed ondansetron during . There are no other studies looking at the use of ondansetron in and long-term effects for the baby. Can I breastfeed while taking ondansetron? There have been no studies in humans looking at the use of ondansetron during . Studies in animals suggest that ondansetron enters breast milk, but the effects of ondansetron on a are not known. If ondansetron use is necessary, it is not usually a reason to stop . A different drug may be considered, especially while a or . Be sure to talk to your healthcare provider about all your questions. I take ondansetron. Can it make it harder for me to get my partner or increase the chance of defects? There are no human studies looking at male use of ondansetron. Animal studies have not shown any effect on male fertility. In general, exposures that fathers and sperm donor have are unlikely to increase risks to a . For more information, please see the MotherToBaby fact sheet Paternal Exposures at https://mothertobaby.org/fact-she ets/ygshxqds-rktycybhq-qxfcogsfn/ pdf/. documented in this encounter [facility] 12-23-2024 Telephone encounter Note Intake questions completed [facility] 12-23-2024 Miscellaneous Notes Intake questions completed Attempted to contact patient to go over new ob intake using the phone number listed in chart. No answer. Voicemail unable to take messages at this time. Amber Zaidi MA documented in this encounter [facility] 12-23-2024 Note HNO ID: [id number] Author: BAYRON NUNEZ APRN.DONOR SUPPORT TECHNICIAN Service: ? Author Type: Nurse Practitioner Type: Progress Notes Filed: 12/24/2024 11:28 Note Text: Wallpaperer Helper offered: Patient declines. INITIAL OB ASSESSMENT HPI: Lucie is a 34 year old White Female here to establish Obstetrical Care. Patient's last menstrual period was 10/06/2024. from OB Dating Form. was planned Complaints: No OB History Gravida9 Para4 Term3 Preterm1 AB4 Living3 SAB3 IAB0 Ectopic1 Multiple0 Live Births3 # 1 - Date: 06/30/11, Sex: Male, Weight: 4.111 kg (9 lb 1 oz), GA: 41w0d, Type: , Low Transverse, Apgar1: None, Apgar5: None, Living: Living, Comments: Induced , FTP beyond 4 cm, CPD,800cc # 2 - Date: 02/02/15, Sex: Male, Weight: 4.621 kg (10 lb 3 oz), GA: 39w0d, Type: , Other, Apgar1: None, Apgar5: None, Living: Living, Comments: RCS # 3 - Date: 11/29/17, Sex: Female, Weight: 3.742 kg (8 lb 4 oz), GA: 39w0d, Type: , Other, Apgar1: None, Apgar5: None, Living: Living, Comments: Repeat planned C [place], BTL # 4 - Date: 09/07/21, Sex: None, Weight: None, GA: None, Type: None, Apgar1: None, Apgar5: None, Living: None, Comments: right fallopian tube # 5 - Date: 2021, Sex: None, Weight: None, GA: None, Type: None, Apgar1: None, Apgar5: None, Living: None, Comments: None # 6 - Date: 2023, Sex: None, Weight: None, GA: None, Type: None, Apgar1: None, Apgar5: None, Living: None, Comments: None # 7 - Date: 02/08/24, Sex: Male, Weight: None, GA: 21w4d, Type: INDUCED , Apgar1: None, Apgar5: None, Living: None, Comments: T13, DIVYADE # 8 - Date: 06/02/24, Sex: None, Weight: None, GA: 6w4d, Type: MISSED AB, Apgar1: None, Apgar5: None, Living: None, Comments: PUL, IUP suspected # 9 - Date: None, Sex: None, Weight: None, GA: None, Type: None, Apgar1: None, Apgar5: None, Living: None, Comments: None Previous history: Prior : yes x 3 History of 4th degree laceration: No History of shoulder dystocia: No History of Hypertensive disorders including pre-eclampsia or gestational hypertension: No History of gestational diabetes: No Patient's Risk Screening for delivery: Have you had a prior phan between 20w and 36w6d? No How many pregnancies have you had before? 9 Did you have a previous baby with a GBS Infection? No Please select all that apply for any prior : Baby large for gestational age x2 MEDICAL/PSYCHOSOCIAL HISTORY: History of hemorrhage or bleeding concerns: No Thyroid Disease: Yes History of chronic hypertension: No History of pre-existing diabetes: No ABO/RH(D) Date Value Ref Range Status 06/15/2021 O POSITIVE Final No weight on file for this encounter. Last Pap: 04/10/2022 History of abnormal pap: No Prior treatment for cervical dysplasia: none. Last HPV: 04/12/2022 History of STDs: None Partner History of STDs: None Did you have a partner with Herpes? No Tobacco use: No E-Cigarette/Vaping Use: Recently quit! Caffeine use: Yes drinks 20 oz bottle of evgeny 4 days a week Drug use: No Alcohol use: No Multivitamin with Folic acid: Yes Would refuse blood transfusion if medically necessary: No Social Needs: How often does this describe you? I don't have enough money to pay my bills: Never Within the past 12 months, have you worried that your food would run out before you had money to buy more? Never In the past 12 months, has lack of reliable transportation kept you from going to medical appointments or work, or from getting things needed for daily living? Never In the past 12 months, have you had any concerns about having a place to live, or about the condition or quality of your housing? Never Would you like more information on any of the following (please check all that apply)? Not interested Social History: Do you have any history of depression, anxiety, PTSD, or other mood problems? Yes Do you have a history of abuse or trauma that may impact your experience? No Are you currently employed? Yes Depression/Anxiety Screening: denies symptoms of depression. OB Depression and Anxiety Screening- This Encounter (since 12/22/2024) Over the past 2 weeks have you felt down, depressed, or hopeless? Negative Over the past two weeks, have you felt little interest or pleasure in doing things?? Negative Feeling nervous, anxious or on edge 1-Several days Not being able to stop or control worrying 0-Not al all Anxiety Pre-Screening Total (If >/= 3 additional questions will be reviewed) 1 Genetic Screening: Partner present: No Patient verbalized knowledge of partner family health history: No Do you or your partner have any personal or family history of defects not previously discussed: No Do you have history of a complicated by anomaly, genetic condition, or demise: (more content not included)... [facility] 12-23-2024 History of Present illness Narrative Images from the original note were not included. Wallpaperer Helper offered: Patient declines. INITIAL OB ASSESSMENT HPI: Lucie is a 34 year old White Female here to establish Obstetrical Care. Patient's last menstrual period was 10/06/2024. from OB Dating Form. was planned Complaints: No OB History Gravida9 Para4 Term3 Preterm1 AB4 Living3 SAB3 IAB0 Ectopic1 Multiple0 Live Births3 # 1 - Date: 06/30/11, Sex: Male, Weight: 4.111 kg (9 lb 1 oz), GA: 41w0d, Type: , Low Transverse, Apgar1: None, Apgar5: None, Living: Living, Comments: Induced , FTP beyond 4 cm, CPD,800cc # 2 - Date: 02/02/15, Sex: Male, Weight: 4.621 kg (10 lb 3 oz), GA: 39w0d, Type: , Other, Apgar1: None, Apgar5: None, Living: Living, Comments: RCS # 3 - Date: 11/29/17, Sex: Female, Weight: 3.742 kg (8 lb 4 oz), GA: 39w0d, Type: , Other, Apgar1: None, Apgar5: None, Living: Living, Comments: Repeat planned C [place], BTL # 4 - Date: 09/07/21, Sex: None, Weight: None, GA: None, Type: None, Apgar1: None, Apgar5: None, Living: None, Comments: right fallopian tube # 5 - Date: 2021, Sex: None, Weight: None, GA: None, Type: None, Apgar1: None, Apgar5: None, Living: None, Comments: None # 6 - Date: 2023, Sex: None, Weight: None, GA: None, Type: None, Apgar1: None, Apgar5: None, Living: None, Comments: None # 7 - Date: 02/08/24, Sex: Male, Weight: None, GA: 21w4d, Type: INDUCED , Apgar1: None, Apgar5: None, Living: None, Comments: T13, D&E # 8 - Date: 06/02/24, Sex: None, Weight: None, GA: 6w4d, Type: MISSED AB, Apgar1: None, Apgar5: None, Living: None, Comments: PUL, IUP suspected # 9 - Date: None, Sex: None, Weight: None, GA: None, Type: None, Apgar1: None, Apgar5: None, Living: None, Comments: None Previous history: Prior : yes x 3 History of 4th degree laceration: No History of shoulder dystocia: No History of Hypertensive disorders including pre-eclampsia or gestational hypertension: No History of gestational diabetes: No Patient's Risk Screening for delivery: Have you had a prior phan between 20w and 36w6d? No How many pregnancies have you had before? 9 Did you have a previous baby with a GBS Infection? No Please select all that apply for any prior : Baby large for gestational age x2 MEDICAL/PSYCHOSOCIAL HISTORY: History of hemorrhage or bleeding concerns: No Thyroid Disease: Yes History of chronic hypertension: No History of pre-existing diabetes: No ABO/RH(D) Date Value Ref Range Status 06/15/2021 O POSITIVE Final No weight on file for this encounter. Last Pap: 04/10/2022 History of abnormal pap: No Prior treatment for cervical dysplasia: none. Last HPV: 04/12/2022 History of STDs: None Partner History of STDs: None Did you have a partner with Herpes? No Tobacco use: No E-Cigarette/Vaping Use: Recently quit! Caffeine use: Yes drinks 20 oz bottle of evgeny 4 days a week Drug use: No Alcohol use: No Multivitamin with Folic acid: Yes Would refuse blood transfusion if medically necessary: No Social Needs: How often does this describe you? I don't have enough money to pay my bills: Never Within the past 12 months, have you worried that your food would run out before you had money to buy more? Never In the past 12 months, has lack of reliable transportation kept you from going to medical appointments or work, or from getting things needed for daily living? Never In the past 12 months, have you had any concerns about having a place to live, or about the condition or quality of your housing? Never Would you like more information on any of the following (please check all that apply)? Not interested Social History: Do you have any history of depression, anxiety, PTSD, or other mood problems? Yes Do you have a history of abuse or trauma that may impact your experience? No Are you currently employed? Yes Depression/Anxiety Screening: denies symptoms of depression. OB Depression and Anxiety Screening- This Encounter (since 12/22/2024) Over the past 2 weeks have you felt down, depressed, or hopeless? Negative Over the past two weeks, have you felt little interest or pleasure in doing things? Negative Feeling nervous, anxious or on edge 1-Several days Not being able to stop or control worrying 0-Not al all Anxiety Pre-Screening Total (If >/= 3 additional questions will be reviewed) 1 Genetic Screening: Partner present: No Patient verbalized knowledge of partner family health history: No Do you or your partner have any personal or family history of defects not previously discussed: No Do you have history of a complicated by anomaly, genetic condition, or demise: Yes, trisomy 13 Preeclampsia Risk Screening: Screening for prevention of preeclampsia: High risk factors: None Moderate risk ractors: None OB Risk Screening: Completed, no positive findings documented. 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) Depression Ectopic ([facility]) 2021 Fetus with trisomy 13, single gestation (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 60 capsule 1 OTC NUTRITIONAL SUPPLEMENT Take by mouth once daily. Myoinstol Cholecalciferol, Vitamin D3, 50 mcg (2,000 unit) cap busPIRone (BUSPAR) 5 mg tablet Take 1 tablet by mouth three times a day. 90 tablet 1 ferrous sulfate (IRON ORAL) Take by mouth. acetaminophen (TYLENOL EXTRA STRENGTH) 500 mg tablet Take 2 tablets by mouth every 8 hours as needed for pain. 48 tablet 0 PNV/iron/omega3/folic acid/min (PRENAT JQ-DODL-GZ-ZS-TV0-RVDGR ORAL) Take by mouth. ondansetron orally disintegrating (ZOFRAN ODT) 4 mg disintegrating tablet Take 1 tablet by mouth every 8 hours as needed for nausea/vomiting. (Patient not taking: Reported on 11/20/2024) 20 tablet 0 No current facility-administered medications for this visit. Allergies As of Date: 12/24/2024 Allergen Noted Reaction SULFA (SULFONAMIDE ANTIBIOTICS) 07/21/2020 Hives and Shortness of Breath Fully Assessed 12/02/2024 Does patient have penicillin allergy: No REVIEW OF SYSTEMS: GENERAL: Negative for: Fever or Chills HEENT: Negative for: Impaired Vision, Ringing in Ears, Nosebleeds + headache NECK: Negative for: Swelling, Pain, Stiffness RESPIRATORY: Negative for: Shortness of breath, Wheezing + resolving cough GASTROINTESTINAL: Negative for: Diarrhea, Blood in stool, Vomiting + heartburn, constipation, nausea MUSCULOSKELETAL: Negative for: Muscle or joint pain, stiffness, Joint swelling NEUROLOGIC/PSYCHIATRIC: Negative for: Weakness, Paralysis, Numbness, Tingling, Tremor, Memory loss + anxiety and depression SKIN: Negative for: Rash, Itching GENITOURINARY: Negative for: vaginal itching, vaginal discharge, hematuria or dysuria SENSITIVE EXAM: The sensitive examination was discussed with the Patient or Patient's Authorized Broadcast Operations Director. As applicable, any other physician, advance practice provider, medical student, or other health professional student that will be observing or involved in the sensitive examination for educational or training purposes was discussed with the Patient or Authorized Broadcast Operations Director. The Patient or Authorized Broadcast Operations Director has agreed to proceed with the sensitive examination. (Sensitive examination includes inspection and/or palpation of the breasts, pelvis, prostate and anorectal regions). PHYSICAL EXAM: LMP 10/06/2024 GENERAL: pleasant in no apparent distress DERMATOLOGY: Normal, without lesions, non-icteric, and non-hirsute NECK: Supple, full range of motion, no adenopathy, and thyroid normal CHEST: Normal inspiratory effort BREAST: soft, non-tender, symmetric, no dominant mass, normal nipple-areolar complex, no lymphadenopathy, and no nipple discharge ABDOMEN: soft, non-tender, and no masses NEURO: alert and oriented x3,exam grossly non-focal PELVIS: External genitalia normal without lesions. Perineal body intact. No cervical lesions. + scattered angiokeratoma, scarring consistent with HS Cervix closed. Uterus 9 week size. No adnexal masses or tenderness. Clinical Pelvimetry: Pelvimetry clinically assessed as adequate Limited OB ultrasound exam: not performed. Cardiac activity confirmed. SBIRT Lucie Dent was given the 4P's screening tool. Lucie answered as follows: OB Opioid Screening - Last Recorded (since 03/28/2024) Did any of your parents have a problem with alcohol or other drug use? Yes Father Does your partner have a problem with alcohol or other drug use? No In the past, have you had difficulties in your life because of alcohol or other drugs, including prescription medications? No In the past month have you drunk any alcohol or used other drugs? No Are you taking medication for pain during the either prescribed or not? No Based on the screen and further questions, she is considered at Low risk due to:No past or current use. Positive reinforcement of current behavior. Plan to rescreen early third trimester. Bayron Nunez APRN.DONOR SUPPORT TECHNICIAN ASSESSMENT: 34 year old at 9w5d wks gestational age PLAN: 1) Patient oriented to practice. Patient given new OB orientation folder. Discussed nutrition, folic acid supplementation, dietary guidelines, exercise, smoking, alcohol, caffeine, and drug use. Discussed gestational weight gain guidelines. Discussed routine OB labs including STD/HIV. Discussed how to access Your guide to a health and the [employer]. Discussed hemoglobin electrophoresis. Patient: Declines Reviewed midwifery and safety investigator/cause analyst services that are available. Reviewed [employer] program. Discussed. 2) Screening: Hemoglobin A1C: ordered Baby Aspirin: The patient has been counseled about the potential benefits of low dose aspirin in and our recommendation that this be offered to all patients, regardless of whether they meet the high risk criteria specified above. She Accepts Aneuploidy Screening: Discussed aneuploidy screening, nuchal translucency/first trimester early anatomy ultrasound and NIPT. The risks/benefits and limitations of NIPT/aneuploidy screening were reviewed including the potential for false negative and false positive results. The availability of genetic counseling was reviewed. Information on aneuploidy screening was provided. The patient chooses to proceed with First trimester early anatomy ultrasound (12-13w6d) and NIPT (10 weeks) Myriad Carrier Screening: Discussed myriad carrier screening. We discussed the availability of professional-society guided carrier screening and reviewed the conditions screened and limitations of screening. The availability of genetic counseling was reviewed. Information on carrier screening was provided. The patient Previously ordered 3) Patient offered option of Virtual Visits. Patient unsure. May consider in future. ACTIVE PROBLEM LIST History of Headache - 12/24/2024 Comment: December 24, 2024 Discussed Magnesium Citrate for prevention. Bayron Nunez APRN.TONEY Heartburn During in First Trimester ([facility]) - 12/24/2024 Comment: December 24, 2024 Taking Tums with no relief. Rx for Pepcid sent. Bayron Nunez APRN.DONOR SUPPORT TECHNICIAN Encounter for Supervision of High Risk in First Trimester, Antepartum ([facility]) - 12/24/2024 Comment: Care Checklist Vaccines: [] Flu vaccine [] declined [] RSV vaccine 32 0/7 - 36 6/7 (May - Oct) [] declined [] COVID vaccine [] declined [] TDaP 27-36 [] declined First trimester: [x] Dating US [] 1st tri labs [x] Pap smear [x] Carrier screening [] declined [x] NIPT screening [] declined [x] First trimester anatomy scan [] declined [x] universal ASA ordered (start 12w-16w) [] declined [] M Power Consult [] not indicated [] declined Second trimester: [] Anatomy scan [] Mode of Delivery - [] Feeding - [] Pump ordered [] Diabetes screen [] CBC, RPR [] Behavioral Health Screening Third trimester (28-30 weeks): [] Consent [] Contraception [] Integrity Director [] TeamBirth handout Third trimester (36-40 weeks): [] GBS [] Presentation - [] Scheduled [] yes - Hibiclens, pre-op instructions, CBC, T&S ordered [] no [] H&P [] Preferences worksheet [] Scanned in EMR Subchorionic Hematoma in First Trimester ([facility]) - 12/02/2024 History of Delivery - 12/24/2024 Comment: X3. Bayron Nunez APRN.DONOR SUPPORT TECHNICIAN Family History of Trisomy 13 - 12/24/2024 Comment: December 24, 2024 History of Trisomy 13 in prior -D&E @ 21w4d - baby boy [place]. .Patient and partner had genetic testing. Desires NIPT. Bayron Nunez APRN.DONOR SUPPORT TECHNICIAN Jose's Disease - 12/24/2024 Thyroid Antibody Positive - 06/29/2024 Comment: December 24, [address] Allison 08/06/2024-last thyroid labs drawn then. TSH/T4 ordered. Bayron Nunez APRN.DONOR SUPPORT TECHNICIAN Constipation During in First Trimester ([facility]) - 12/24/2024 Comment: December 24, 2024 Reviewed safe medications during . Bayron Nunez APRN.DONOR SUPPORT TECHNICIAN Nausea and Vomiting During ([facility]) - 12/24/2024 Comment: December 24, 2024 No relief with Vitamin B6. Zofran rx sent. Reviewed 1st trimester risks. Written info provided. To notify if unable to eat or drink more than 12-24 hours. Bayron Nunez APRN.DONOR SUPPORT TECHNICIAN Obesity Affecting in First Trimester ([facility]) - 10/26/2023 Comment: December 24, 2024 Pre BMI 34 Bayron Nunez APRN.DONOR SUPPORT TECHNICIAN History of Asthma - 10/26/2023 Comment: 10/26/23-History of asthma, only needs treatment when has URI/Bronchitis. History of exercised induced asthma till age 24. No hemabate during delivery. Pia Kan History of Reversal of Tubal Ligation - 10/02/2022 Comment: 10/02/2022 Patient had a tubal reversal by Dr. Ayala June 2021. TKRN With History of Ectopic , Antepartum ([facility]) - 10/02/2022 Comment: December 24, 2024 Has had ultrasound done by [facility] - IUP confirmed. Bayron Nunez APRN.CNP 10/02/2022 Patient is 5 para 3 with a history of ectopic patient states that she had vaginal bleeding on September 19 that lasted for 4 days. No bleeding since then denies any pain. Patient had quantitative hCGs done. Appointment with Dr. Uribe today. TKRN History of Delivery of Macrosomal Infant - 10/02/2022 Comment: 10/02/2022 Patient's first child weighed 9 pounds 1 ounce at and second child 10 pounds 3 ounces at .TKRN Anxiety and Depression - 10/02/2022 History of Depression - 12/24/2024 Ptsd (Post-Traumatic Stress Disorder) - 12/24/2024 Comment: December 24, 2024 Pt has a history of depression/anxiety diagnosed at age 18 and treated by her PCP. Takes Buspar. She has been off Zoloft since mid September. Believes she is feeling better off Zoloft. States she did have PP depression after the of her first child only. Mental health resources provided. Considering [facility] referral. Bayron Nunez APRN.CNP Family History of Muscular Dystrophy - 10/02/2022 Comment: Patient has a half cousin with muscular dystrophy. Patient states she has not had any genetic testing in the past. Declines testing. Yuliya Jackson APRN.CNM Follow up in 2 weeks or sooner prn. Plan for NT scan between 12w0d and 13w6d gestation. Plan for early anatomy at 16 weeks. Bayron Nunez APRN.DONOR SUPPORT TECHNICIAN documented in this encounter [facility] 12-23-2024 Telephone encounter Note Attempted to contact patient to go over new ob intake using the phone number listed in chart. No answer. Voicemail unable to take messages at this time. Amber Zaidi MA [facility] 12-17-2024 Telephone encounter Note Refill(s) request: Requested Prescriptions Pending Prescriptions Disp Refills progesterone micronized (PROMETRIUM) 200 mg capsule 120 capsule 0 Sig: Use 2 capsules vaginally two times a day. Request from: Patient Last order: Disp Refills Start End progesterone micronized (PROMETRIUM) 200 mg capsule 120 capsule 0 11/13/2024 -- Sig: Use 2 capsules vaginally two times a day. Sent to pharmacy as: progesterone micronized (PROMETRIUM) 200 mg capsule Class: Normal Route: VAGINAL Order: [id number] E-Prescribing Status: Receipt confirmed by pharmacy (11/13/2024 12:31 PM EST) Last visit: visit with provider Bayron Rae on date 12/02/24 Future appointments: Future Appointments Date Time Provider Department Center 12/24/2024 9:30 AM Bayron Nunez APRN.CNP [facility] [place] 01/22/2025 10:20 AM Yandy Candelaria MD [facility] [place] Appointment scheduled: As listed above Action taken: Refill request routed to clinician Daysi Charles RN December 17, 2024 1:32 PM [facility] 12-17-2024 Miscellaneous Notes Refill(s) request: Requested Prescriptions Pending Prescriptions Disp Refills progesterone micronized (PROMETRIUM) 200 mg capsule 120 capsule 0 Sig: Use 2 capsules vaginally two times a day. Request from: Patient Last order: Disp Refills Start End progesterone micronized (PROMETRIUM) 200 mg capsule 120 capsule 0 11/13/2024 -- Sig: Use 2 capsules vaginally two times a day. Sent to pharmacy as: progesterone micronized (PROMETRIUM) 200 mg capsule Class: Normal Route: VAGINAL Order: [id number] E-Prescribing Status: Receipt confirmed by pharmacy (11/13/2024 12:31 PM EST) Last visit: visit with provider Bayron Rae on date 12/02/24 Future appointments: Future Appointments Date Time Provider Department Center 12/24/2024 9:30 AM Bayron Nunez APRN.CNP [facility] [place] 01/22/2025 10:20 AM Yandy Candelaria MD [facility] [place] Appointment scheduled: As listed above Action taken: Refill request routed to clinician Daysi Charles RN December 17, 2024 1:32 PM documented in this encounter [facility] 12-02-2024 Bayron Kirk APRN.CNP - 12/02/2024 11:09 AM EDT [facility] ([facility]) You received care today from Bayron Rae APRN.CNP in the [facility] ([facility]). [facility] is a specialized program of the [facility] dedicated to caring for patients who are experiencing -related complications or concerns. We understand this is a difficult time for you and your family and will do our best to answer all of your questions and concerns. If you have concerns or questions about your health, please call us: Sunday through Sunday, 8 am to 4:30 pm, please call the [facility] at [phone]. Please leave a voice mail and one of our [facility] nurse coordinators will return your call. . Voice mails are not checked on evenings and weekends. Evenings and weekends, please call the on-call doctor: West side: [phone] or East side: [phone]. If at any time you experience heavy vaginal bleeding (soaking through a pad in an hour or less), severe abdominal pain, lightheadedness or shortness of breath you need to call your doctor immediately and/or go the the nearest emergency room (preferably [facility] or [facility]). For emergencies call 911. [facility] YOUR GUIDE TO HEALTHY Please select the following link to access the [facility] Your Guide to a Healthy . [email or web address] [facility] WOMEN S HEALTH - TYPES OF REMEDY SAFE MEDICATIONS TO TAKE DURING Allergy Diphenhydramine (Benadryl ) Loratidine (Claritin ) Cetirizine (Zyrtec ) Cold and flu Diphenhydramine (Benadryl)* Dextromethorphan (Robitussin )* Guaifenesin (Mucinex [plain])* Vicks Vapor Rub mentholated cream Mentholated or non-mentholated cough drops (Sugar-free cough drops for gestational diabetes should not contain blends of herbs or aspartame) pseudoephedrine ([Sudafed ] after 1st trimester) acetaminophen (Tylenol )* Saline nasal drops or spray Warm salt water gargle *Note: Do not take the SA (sustained action) form of these drugs or the multi-symptom form of these drugs. -Do not use Nyquil , or a generic version, due to its high alcohol content. Diarrhea Loperamide ([Imodium ] after 1st trimester, for 24 hours only) Constipation Methylcellulose fiber (Citrucel ) Docusate (Colace ) Psyllium (Fiberall , Metamucil ) Polycarbophil (FiberCon ) Polyethylene glycol (MiraLAX )* *Occasional use only First aid ointment Bacitracin Neomycin/polymyxin B/bacitracin (Neosporin ) Headache Acetaminophen (Tylenol) Heartburn Aluminum hydroxide/magnesium carbonate (Gaviscon )* Famotidine (Pepcid AC ) Aluminum hydroxide/magnesium hydroxide (Maalox ) Calcium carbonate/magnesium carbonate (Mylanta ) Calcium carbonate (Titralac , Tums ) *Occasional use only Hemorrhoids Phenylephrine/mineral oil/petrolatum (Preparation H ) Witch phoenix (Tucks pads or ointment) Insect repellant N,G-aaoekct-lugu-toluamide (DEET ) Nausea and vomiting Doxylamine (Unisom Sleeptab) Vitamin B6 25mg three times per day in combination with doxylamine 12.5mg at bedtime to prevent nausea. Gracie extract 125-250mg every six hours. Rashes Diphenhydramine cream (Benadryl) Hydrocortisone cream or ointment Oatmeal bath (Aveeno ) Sleep Diphenhydramine (Unisom SleepGels , Benadryl) Yeast infection Miconazole (Monistat 7-Day) *Please note: No drug can be considered 100% safe to use during . Care: Your First Visit Why is care important? Regular appointments with your healthcare provider throughout your are important to ensure the health of you and your baby. In addition to medical care, care includes education on and childbirth, plus counseling and support. Frequent visits with your healthcare provider allow you to follow the progress of your baby s development. Visits also give you the opportunity to ask questions. Most healthcare providers welcome your partner at each visit, as well as interested family members. What happens on my first medical visit (new OB visit) ? The first visit is designed to determine your general health and give your healthcare provider clues to the risk factors that might affect your . It will typically be longer than future visits. The purpose of the initial visit is to: Determine your due date. Find out your health history. Explore the medical history of family members. Determine if you have any risk factors based on your age, health, and/or personal and family history. You will be asked about previous pregnancies and surgeries, medical conditions, and exposure to any contagious diseases. Also, notify your healthcare provider about any medications (prescription or aqcb-noe-offksps) you have taken or are currently taking. We ask some very personal questions, but be assured that any information you give is strictly confidential. Physical exam A thorough physical exam is also part of the first visit. You are weighed, and your blood pressure, heart, lungs and breasts are checked. The first visit also includes a pelvic exam by your healthcare provider. Pelvic exam During the pelvic exam, a bimanual internal exam (with two fingers inside the vagina and one hand on the abdomen) may be performed to determine the size of your uterus and pelvis. Your healthcare provider will likely perform an early ultrasound to determine due date as well as might listen for the baby s heartbeat with a special instrument called a doppler, which uses ultrasound (high frequency sound waves). A doppler usually cannot detect a baby s heartbeat before the 10th to 12th week of . Lab tests Many lab tests are ordered in your first trimester, including: Complete blood count (CBC) screens for blood problems, such as anemia (low iron). Hepatitis C. RPR screens for syphilis (a sexually transmitted disease). Rubella: Tests for immunity (protection) against [place] measles. HBSAG: Tests for hepatitis B (a liver infection). Urinalysis: Tests for kidney infection and bladder infection. HIV: Screens for antibodies in your blood. Cystic Fibrosis: Screens for the presence of the CF gene. Type and screen: Determines your blood type and Rh factor (an antigen or protein on the surface of blood cells that causes an immune system response). Sickle cell screen. Gonorrhea and chlamydia testing. SMA: Screens for a gene mutation that causes spinal muscular atrophy. Nausea and vomiting during Does Every Woman Experience Nausea or Vomiting During ? A few jose women do not have nausea or vomiting during . About one in four women have only mild nausea. Three in every ten women have nausea severe enough to affect their daily lives. One half of all women experience both nausea and vomiting during the first months of . Nausea and vomiting during tends to be the worst 8 to 10 weeks after your last menstrual period. It usually goes away by 12 to 16 weeks after your last period. It is often called morning sickness, but it can occur all day long. What Causes Nausea and Vomiting During ? We do not know for sure what causes nausea and vomiting during . Changes in hormone levels play a role. If your mother had morning sickness when she was , you may be more likely to have nausea and vomiting during . A history of motion sickness or stomach problems before you got may be another risk factor. Are Nausea and Vomiting During Dangerous? Mild to moderate nausea and vomiting may make you feel awful, but it will not hurt you or your baby. Severe vomiting during --that prevents you from keeping any food down--is called hyperemesis gravidarum. It is rare, but can cause health problems. You should call your health care provider if any of the following apply to you: You are not able to keep any liquids or foods down for 24 hours You are vomiting several times a day or after every meal You have abdominal pain, difficulty urinating, or you have a fever How are Nausea and Vomiting Treated? Nausea or vomiting during is treated in three easy steps: 1.Simple diet changes may lessen nausea and help you avoid vomiting. This is all it takes for many women. 2.If diet changes are not enough, you can try taking gracie or using acupressure bands. Both have been shown to decrease nausea. 3.Finally, if the nausea and vomiting are making it hard to do your usual activities, medications can be prescribed. Please check with your health care provider before taking any medicine. Are Antinausea Medications Dangerous for my Baby? There are several different types of nausea medicines that work well and are safe for you and your baby. Because nausea and vomiting can be caused by different triggers in your body, you and your health care provider should work together to find the medicine that is right for you. Tips to Treat Nausea and Vomiting During : First Step: Lifestyle and Diet Changes Nausea during is worse if you are dehydrated (if there is not enough fluid in your body) or if the levels of sugar in your blood are low from not eating often enough. Eat plain crackers or dry toast in the morning before getting out of bed and at any time during the day when you feel nauseous. Instead of three large meals, eat small meals every 2 to 3 hours. Avoid foods that have strong odors. Sucking on a lemon or nome slice may help. Try eating foods that are high in carbohydrates, such as potatoes, noodles, or toast. Do not lie down right after eating. Try drinking carbonated beverages between meals; wait for 30 minutes after eating to drink liquids. Dairy products may make nausea and vomiting worse, but some women say yogurt is helpful. Avoid foods that are greasy, fried, spicy, or very hot. Some women find that vitamins make their nausea worse. If so, check with your health care provider about stopping the vitamins until the nausea goes away. If you stop taking a multivitamin, you should take one tablet of folic acid daily (0.4 mg, which is 400 micrograms per day) during the first trimester. Folic acid tablets will not worsen nausea. Second Step: Nonmedication Treatment Gracie Gracie has been used for treating nausea since ancient times. Gracie root tea, gracie gum, gracie snaps, gracie syrup added to water, and gracie nile are all safe, and can decrease the severity of your nausea. You can also buy gracie capsules at a drug store. The dose of gracie that has been tested is 1 gram (250 mg capsules powdered gracie taken four times per day). Gracie capsules come in several doses. If you want to use gracie capsules, ask your health care provider how often you should take them. Acupressure Bands Seabands are wristbands with a pressure point placed on the inside of your wrist. They are often used for motion sickness. Some women find them helpful for their nausea, and they are safe. Third Step: Medication There are awec-elb-mbumuuj and prescription medicines that can be used if your nausea and vomiting are very severe. Talk with your health care provider before taking any additional vitamins or medicines. Pharmacologic management: Vitamin B6 by mouth three times daily every day regardless of presence of nausea Doxylamine 12.5 mg by mouth at bedtime every night regardless of presence of nausea (can increase to 25 mg if not too sleepy) OR Diclegis (Doxylamine/pyridoxine) start: 2 tabs PO qhs (at bedtime); if sx persist after 2 days, increase to 1 tab PO qam and 2 tabs PO qhs; if symptoms persist after 4 days increase to 1 tab PO qam, 1 tab PO mid afternoon and 2 tabs PO qhs. (Max 4 tablets/day). Should take on empty stomach; do not cut/crush or chew. Promethazine 12.5 to 25 mg by mouth up to every 6 hours as needed for nausea (can be inserted rectally if you're unable to swallow anything by mouth) Thank you for choosing [facility] for your health care. Bayron Rae APRN.TONEY documented in this encounter [facility] 12-02-2024 Note HNO ID: [id number] Author: BAYRON RAE APRN.CNP Service: ? Author Type: Nurse Practitioner Type: Progress Notes Filed: 12/02/2024 11:09 Note Text: [facility] ([facility])- Progress Office Note DOS: 12/02/24 ID: Lucie Dent is a 34 year old IUP uncertain viability at 8w1d by LMP Chief Complaint: Patient presents with: [facility] US Location: [facility] Building Subjective: HPI: Lucie Dent is a 34 year old at 8w1d by LMP, presenting with IUP uncertain viability. Certain LMP however hx of PCOS and can have irregular cycles. Hx of recurrent loss Denies bleeding or pain Endorses symptoms of nausea. Obstetric Hx: # 1 - Date: 06/30/11, Sex: Male, Weight: 4.111 kg (9 lb 1 oz), GA: 41w0d, Type: , Low Transverse, Apgar1: None, Apgar5: None, Living: Living, Comments: Induced , FTP beyond 4 cm, CPD,800cc # 2 - Date: 02/02/15, Sex: Male, Weight: 4.621 kg (10 lb 3 oz), GA: 39w0d, Type: , Other, Apgar1: None, Apgar5: None, Living: Living, Comments: RCS # 3 - Date: 11/29/17, Sex: Female, Weight: 3.742 kg (8 lb 4 oz), GA: 39w0d, Type: , Other, Apgar1: None, Apgar5: None, Living: Living, Comments: Repeat planned C Setion, BTL # 4 - Date: 09/07/21, Sex: None, Weight: None, GA: None, Type: None, Apgar1: None, Apgar5: None, Living: None, Comments: right fallopian tube # 5 - Date: 2021, Sex: None, Weight: None, GA: None, Type: None, Apgar1: None, Apgar5: None, Living: None, Comments: None # 6 - Date: 2023, Sex: None, Weight: None, GA: None, Type: None, Apgar1: None, Apgar5: None, Living: None, Comments: None # 7 - Date: 02/08/24, Sex: None, Weight: None, GA: 21w4d, Type: INDUCED , Apgar1: None, Apgar5: None, Living: None, Comments: [id number] # 8 - Date: 06/02/24, Sex: None, Weight: None, GA: 6w4d, Type: MISSED AB, Apgar1: None, Apgar5: None, Living: None, Comments: PUL, IUP suspected # 9 - Date: None, Sex: None, Weight: None, GA: None, Type: None, Apgar1: None, Apgar5: None, Living: None, Comments: None Patient's last menstrual period was 10/06/2024 (exact date). LMP is certain LMP was normal intention was planned? Yes Plans to continue ? Yes Ectopic risk factors - h/o ectopic : Yes, s/p right salpingectomy in 2020 - h/o adnexal surgery: Yes, tubal ligation/reversal, salpingectomy Problem list, histories and medication list updated. PAST MEDICAL HISTORY Diagnosis Date Anemia Anxiety Asthma Depression Ectopic 2021 Fetus with trisomy 13, single gestation 02/08/2024 Jose's thyroiditis History of depression PCOS (polycystic ovarian syndrome) 2020 depression PAST SURGICAL HISTORY Procedure Laterality Date DELIVERY ONLY , low transverse DELIVERY ONLY , low transverse DELIVERY ONLY , low transverse HSG LIG/TRNSXJ FLP TUBE ABDL/VAG APPR UNI/BI 2018 Tubal ligation MANUAL VACUUM ASPIRATION 06/02/2024 SALPINGECTOMY 09/07/2021 RIGHT SIDE - ectopic at [facility] TONSILLECTOMY AND ADENOIDECTOMY HX UNL LAP TUBAL ANASTOMOSIS Bilateral ALLERGIES Allergen Reactions Sulfa (Sulfonamide * Hives, Shortness of Breath ROS: See HPI General: Denies fever, chills Abdomen: No abdominal pain, nausea, vomiting, diarrhea, or constipation. No bloating, early satiety, indigestion, or increased flatulence. Bladder: Denies urinary complaints Allergies and current medication updated:Yes Objective: Physical Exam: SENSITIVE EXAMINATION CONSENT: The sensitive examination was discussed with the Patient or Patient's Authorized Broadcast Operations Director. As applicable, any other physician, advance practice provider, medical student, or other health professional student that will be observing or involved in the sensitive examination for educational or training purposes was discussed with the Patient or Authorized Broadcast Operations Director. The Patient or Authorized Broadcast Operations Director has agreed to proceed with the sensitive examination. (Sensitive examination includes inspection and/or palpation of the breasts, pelvis, prostate and anorectal regions) BP 125/78 Pulse 67 Ht 167.6 cm (5' 6) Wt 96.5 kg (212 lb 11.9 oz) LMP 10/06/2024 (Exact Date) No BMI 34.34 kg/m? OBGyn Exam General: Well appearing female in NAD Psych: Appropriate, affect congruent with mood Cardio: normotensive, regular rate Pulmonary: Normal respiratory effort Abdomen: Soft, minimally tender to deep palpation, non-peritonitic Labs: Lab Results Component Value Date HCGQT 2,988.0 (H) 11/17/2024 HCGQT 1,072.0 (H) 11/15/2024 HCGQT 409.0 (H) 11/13/2024 HCGQT 147.0 (H) 11/11/2024 Lab Results Component Value Date ABORHD O POSITIVE 06/15/2021 HB 12.2 02/06/20 (more content not included)... [facility] 12-02-2024 Note HNO ID: [id number] Author: BAYRON RAE APRN.DONOR SUPPORT TECHNICIAN Service: ? Author Type: Nurse Practitioner Type: Progress Notes Filed: 12/02/2024 11:09 Note Text: OB point of care ultrasound was performed. See imaging tab for details. Bayron Rae APRN.DONOR SUPPORT TECHNICIAN [facility] 12-02-2024 History of Present illness Narrative [facility] ([facility])- Progress Office Note DOS: 12/02/24 ID: Lucie Dent is a 34 year old IUP uncertain viability at 8w1d by LMP Chief Complaint: Patient presents with: [facility] US Location: [facility] Building Subjective: HPI: Lucie Dent is a 34 year old at 8w1d by LMP, presenting with IUP uncertain viability. Certain LMP however hx of PCOS and can have irregular cycles. Hx of recurrent loss Denies bleeding or pain Endorses symptoms of nausea. Obstetric Hx: # 1 - Date: 06/30/11, Sex: Male, Weight: 4.111 kg (9 lb 1 oz), GA: 41w0d, Type: , Low Transverse, Apgar1: None, Apgar5: None, Living: Living, Comments: Induced , FTP beyond 4 cm, CPD,800cc # 2 - Date: 02/02/15, Sex: Male, Weight: 4.621 kg (10 lb 3 oz), GA: 39w0d, Type: , Other, Apgar1: None, Apgar5: None, Living: Living, Comments: RCS # 3 - Date: 11/29/17, Sex: Female, Weight: 3.742 kg (8 lb 4 oz), GA: 39w0d, Type: , Other, Apgar1: None, Apgar5: None, Living: Living, Comments: Repeat planned C Setion, BTL # 4 - Date: 09/07/21, Sex: None, Weight: None, GA: None, Type: None, Apgar1: None, Apgar5: None, Living: None, Comments: right fallopian tube # 5 - Date: 2021, Sex: None, Weight: None, GA: None, Type: None, Apgar1: None, Apgar5: None, Living: None, Comments: None # 6 - Date: 2023, Sex: None, Weight: None, GA: None, Type: None, Apgar1: None, Apgar5: None, Living: None, Comments: None # 7 - Date: 02/08/24, Sex: None, Weight: None, GA: 21w4d, Type: INDUCED , Apgar1: None, Apgar5: None, Living: None, Comments: T13, D&E # 8 - Date: 06/02/24, Sex: None, Weight: None, GA: 6w4d, Type: MISSED AB, Apgar1: None, Apgar5: None, Living: None, Comments: PUL, IUP suspected # 9 - Date: None, Sex: None, Weight: None, GA: None, Type: None, Apgar1: None, Apgar5: None, Living: None, Comments: None Patient's last menstrual period was 10/06/2024 (exact date). LMP is certain LMP was normal intention was planned? Yes Plans to continue ? Yes Ectopic risk factors - h/o ectopic : Yes, s/p right salpingectomy in 2020 - h/o adnexal surgery: Yes, tubal ligation/reversal, salpingectomy Problem list, histories and medication list updated. PAST MEDICAL HISTORY Diagnosis Date Anemia Anxiety Asthma Depression Ectopic 2021 Fetus with trisomy 13, single gestation 02/08/2024 Jose's thyroiditis History of depression PCOS (polycystic ovarian syndrome) 2019 depression PAST SURGICAL HISTORY Procedure Laterality Date DELIVERY ONLY , low transverse DELIVERY ONLY , low transverse DELIVERY ONLY , low transverse HSG LIG/TRNSXJ FLP TUBE ABDL/VAG APPR UNI/BI 2018 Tubal ligation MANUAL VACUUM ASPIRATION 06/02/2024 SALPINGECTOMY 09/07/2021 RIGHT SIDE - ectopic at [facility] TONSILLECTOMY AND ADENOIDECTOMY HX UNL LAP TUBAL ANASTOMOSIS Bilateral ALLERGIES Allergen Reactions Sulfa (Sulfonamide * Hives, Shortness of Breath ROS: See HPI General: Denies fever, chills Abdomen: No abdominal pain, nausea, vomiting, diarrhea, or constipation. No bloating, early satiety, indigestion, or increased flatulence. Bladder: Denies urinary complaints Allergies and current medication updated:Yes Objective: Physical Exam: SENSITIVE EXAMINATION CONSENT: The sensitive examination was discussed with the Patient or Patient's Authorized Broadcast Operations Director. As applicable, any other physician, advance practice provider, medical student, or other health professional student that will be observing or involved in the sensitive examination for educational or training purposes was discussed with the Patient or Authorized Broadcast Operations Director. The Patient or Authorized Broadcast Operations Director has agreed to proceed with the sensitive examination. (Sensitive examination includes inspection and/or palpation of the breasts, pelvis, prostate and anorectal regions) BP 125/78 Pulse 67 Ht 167.6 cm (5' 6) Wt 96.5 kg (212 lb 11.9 oz) LMP 10/06/2024 (Exact Date) No BMI 34.34 kg/m OBGyn Exam General: Well appearing female in NAD Psych: Appropriate, affect congruent with mood Cardio: normotensive, regular rate Pulmonary: Normal respiratory effort Abdomen: Soft, minimally tender to deep palpation, non-peritonitic Labs: Lab Results Component Value Date HCGQT 2,988.0 (H) 11/17/2024 HCGQT 1,072.0 (H) 11/15/2024 HCGQT 409.0 (H) 11/13/2024 HCGQT 147.0 (H) 11/11/2024 Lab Results Component Value Date ABORHD O POSITIVE 06/15/2021 HB 12.2 02/06/2024 PLT 252 02/06/2024 AST 17 06/02/2024 ALT 13 06/02/2024 CREAT 0.85 08/18/2024 Imagin11/20/2024: +GS/YS Today, CRL measuring less than dates at 6w5d +FCA ?SILVANO Recent Labs and Diagnostic Studies: I have thoroughly reviewed this patients previous notes, encounters, imaging studies (images and reports), and lab results prior to this visit. The following values and reports noted below were reviewed and entered into this chart. All documentation from previous visits and imaging studies from 11/20/2024 were copied and pasted, documentation has been reviewed and edited as necessary for today's visit. Patient's recent imaging, labs reviewed and plan of care discussed with [facility] team. Assessment / Plan: Lucie Dent is a 34 year old at 8w1d with viable IUP measuring 6w5d and plan to continue the . 1. with uncertain viability, single or unspecified fetus - ICD9: V23.87, ICD10: O36.80X0 (primary diagnosis) - resolved. Viable IUP today - POC PRESS SERVICE READER ULTRASOUND 2. Confirm viability, history of recurrent miscarriage, ultrasound - ICD9: V28.3, 646.30, ICD10: O26.20 - viable IUP - size date discrepancy - follow up at New OB visit 3. Uterine size-date discrepancy, first trimester - ICD9: 649.63, ICD10: O26.841 New SANDIE 07/23/2025 based on US today - will confirm at new ob visit in 2 weeks 4. Subchorionic hematoma in first trimester, single or unspecified fetus - ICD9: 656.83, ICD10: O41.8X10, O46.8X1 - fluid collection noted, probable SILVANO - no bleeding - RH pos - pelvic rest - bleeding precautions 5. Early stage of - ICD9: V22.2, ICD10: Z34.90 This is a desired . Discussed nutrition, folic acid supplementation, dietary guidelines, exercise, smoking, alcohol, caffeine, and drug use. Discussed routine OB labs including STD/HIV. Discussed aneuploidy screening options including serum screening and nuchal translucency. We reviewed that we will facilitate referral to care at a location convenient for the patient. -Continue vitamins -Schedule initial visit; patient planning to get care at [place] - discussed common complaints Follow up: - discharge from [facility] - follow up at new ob in next 1-2 weeks; first available Medical Decision Making: Problems: Low: Acute, uncomplicated illness or injury Moderate: New problem with uncertain prognosis Data: Unique test result(s) reviewed: 3+ Unique test(s) ordered: 1 Risk: Low: Low risk from testing/treatment Medical Decision Making Level: 4 - Moderate To patients reading this note: Please be advised the primary purpose of this note is for me to communicate with myself and other members of your medical team. Standard sentence structure is not always used. Medical terminology and medical abbreviations may be used. There may be grammatical and typographical errors missed in proofreading. Bayron Rae APRN.CNP 12/02/2024 10:58 AM OB point of care ultrasound was performed. See imaging tab for details. Bayron Rae APRN.CNP Pt declines pens and pencils dipper Veronica Cotton LPN documented in this encounter [facility] [place] 12-02-2024 Note HNO ID: [id number] Author: VERONICA COTTON LPN Service: ? Author Type: LICENSED NURSE Type: Progress Notes Filed: 12/02/2024 11:09 Note Text: Pt declines pens and pencils dipper Veronica Cotton LPN [facility] 11-21-2024 Telephone encounter Note [facility] RN Coordination Date of Referral: 11/10/2024 Reason for Referral: +HPT, previous [facility] 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 viability POCUS ~6wks Last contact: HCG: __ (11/11) US: none Ref by: Self referral. Previous [facility] pt. JS/ AB 11/10/2024 Phone Called pt, verified name and . Introduced self and PEAC. LMP: 10/06 +HPT 11/08. Denies VB or pain. Will trend HCGs per Dr Franco. Scheduled for viab pocus 11/20@915a- Marisel pending HCG trend.Reviewed SAB/bleeding and ectopic precautions, advised pt to present to the ED if she develops heavy VB saturating a pad in an hour or less for >2 hrs in a row, passing blood clots > or = to the size of a golf ball, and/or severe pain; pt verbalizes understanding. JS 11/12/2024 MyChart MCM sent JS 11/18/24 MYCHART MCM sent HH 11/21/2024 Phone Called pt to schedule f/u usn. Pt to return call at better time. Scheduled 12/02@1015a for viab pocu@1015a- EBr JS [facility] [place] 11-21-2024 Miscellaneous Notes [facility] RN Coordination Date of Referral: 11/10/2024 Reason for Referral: +HPT, previous [facility] 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 viability POCUS ~6wks Last contact: HCG: __ (11/11) US: none Ref by: Self referral. Previous PEAC pt. JS/ AB 11/10/2024 Phone Called pt, verified name and . Introduced self and PEAC. LMP: 10/06 +HPT 11/08. Denies VB or pain. Will trend HCGs per Dr Franco. Scheduled for viab pocus 11/20@915a- Marisel pending HCG trend.Reviewed SAB/bleeding and ectopic precautions, advised pt to present to the ED if she develops heavy VB saturating a pad in an hour or less for >2 hrs in a row, passing blood clots > or = to the size of a golf ball, and/or severe pain; pt verbalizes understanding. JS 11/12/2024 MyChart MCM sent JS 11/18/24 MYCHART MCM sent 11/21/2024 Phone Called pt to schedule f/u usn. Pt to return call at better time. Scheduled 12/02@1015a for viab pocu@1015a- EBr JS documented in this encounter [facility] [place] 11-20-2024 Note HNO ID: [id number] Author: KEYSHAWN WELLS MD Service: ? Author Type: Physician Type: Progress Notes Filed: 11/20/2024 12:15 Note Text: OB point of care ultrasound was performed. See imaging tab for details. Participation of a fellow, resident, medical student, or advanced practice provider student in performing the sensitive examination was discussed with the patient or authorized c s s representative. The patient or authorized c s s representative has agreed to proceed with the sensitive examination. Keyshawn Wells MD [facility] 11-20-2024 History of Present illness Narrative OB point of care ultrasound was performed. See imaging tab for details. Participation of a fellow, resident, medical student, or advanced practice provider student in performing the sensitive examination was discussed with the patient or authorized c s s representative. The patient or authorized c s s representative has agreed to proceed with the sensitive examination.\ Keyshawn Wells MD documented in this encounter [facility] [place] 11-20-2024 Note HNO ID: [id number] Author: HOOD FAITH LPN Service: ? Author Type: LICENSED NURSE Type: Progress Notes Filed: 11/20/2024 09:29 Note Text: Wallpaperer Helper offered: Patient declines.Hood Faith LPN [facility] 11-20-2024 History of Present illness Narrative Wallpaperer Helper offered: Patient declines.Hood Faith LPN Inside Sales Advisor Progress Note - [facility] ([facility]) Chief Complaint: Patient presents with: PEAC- Viab pocus Subjective HPI: The patient is a 34 year old at 6w3d by LMP who presents for confirmation. She self-referred to [facility] for history of SAB. Today, she reports mild nausea and fatigue. Reports mild cramping since starting progesterone. She denies vaginal bleeding or other complaints. Patient's last menstrual period was 10/06/2024 (exact date). LMP is certain LMP was normal intention was planned? Yes Plans to continue ? Yes Ectopic risk factors - h/o ectopic : Yes, s/p right salpingectomy in 2020 - IUD in place: No - h/o adnexal surgery: Yes, tubal ligation and reversal; salpingectomy as above - h/o smoking: No Histories updated. Objective BP 135/88 Pulse 82 Wt 96.4 kg (212 lb 8.4 oz) LMP 10/06/2024 (Exact Date) BMI 34.30 kg/m Physical Exam Constitutional: Appearance: Normal appearance. Pulmonary: Effort: Pulmonary effort is normal. Neurological: Mental Status: She is alert and oriented to person, place, and time. Psychiatric: Mood and Affect: Mood normal. Behavior: Behavior normal. Labs: Lab Results Component Value Date HB 12.2 02/06/2024 PLT 252 02/06/2024 AST 17 06/02/2024 ALT 13 06/02/2024 CREAT 0.85 08/18/2024 RH Positive 02/06/2024 ABORHD O POSITIVE 06/15/2021 HCGQT 2,988.0 (H) 11/17/2024 HCGQT 1,072.0 (H) 11/15/2024 HCGQT 409.0 (H) 11/13/2024 HCG 147 (3/4) 409 (3/6) 1072 (3/8) 2988 (3/10) Imaging: US 11/20/24 Indication Confirmation of intrauterine Impression Single intrauterine gestational sac and yolk sac visualized. No pole is visualized. of uncertain prognosis. Recommendations Repeat ultrasound in at least 11 days to confirm cardiac activity. Method Transvaginal ultrasound examination. View: Adequate visualization Number of embryos: none Dating LMP on: 10/06/2024 GA by LMP 6 w + 3 d SANDIE by LMP: 07/13/2025 Assigned: based on the LMP, selected on 11/20/2024 Assigned GA 6 w + 3 d Assigned SANDIE: 07/13/2025 Biometry Extended GS 7.8 mm -/- 3% Scott YS 1.8 mm <1% Grisolia Assessment Gestational sac: visualized GS 7.8 mm -/- 3% Scott Location: intrauterine Yolk sac: visualized YS 1.8 mm <1% Grisolia Embryo: not visualized Performed By: Keyshawn Wells Read By: Keyshawn Wells Assessment / Plan 34 year old at 6w3d with IUP with uncertain prognosis. We reviewed that prognosis of this remains uncertain as no pole was visualized on ultrasound. We also discussed repeat ultrasound in 11 days, and that absence of cardiac motion at that time would be diagnostic of early loss. Follow-up: - for repeat POCUS in at least 11 days Medical Decision Making: Problems: Moderate: New problem with uncertain prognosis Data: Unique test result(s) reviewed: 3+ Unique test(s) ordered: 1 Risk: Minimal: Minimal risk from testing/treatment Medical Decision Making Level: 4 - Moderate Signature: Keyshawn Wells MD documented in this encounter [facility] [place] 11-20-2024 Note HNO ID: [id number] Author: KEYSHAWN WELLS MD Service: ? Author Type: Physician Type: Progress Notes Filed: 11/20/2024 12:11 Note Text: Inside Sales Advisor Progress Note - [facility] ([facility]) Chief Complaint: Patient presents with: PEAC- Viab pocus Subjective HPI: The patient is a 34 year old at 6w3d by LMP who presents for confirmation. She self-referred to [facility] for history of SAB. Today, she reports mild nausea and fatigue. Reports mild cramping since starting progesterone. She denies vaginal bleeding or other complaints. Patient's last menstrual period was 10/06/2024 (exact date). LMP is certain LMP was normal intention was planned? Yes Plans to continue ? Yes Ectopic risk factors - h/o ectopic : Yes, s/p right salpingectomy in 2020 - IUD in [address]: No - h/o adnexal surgery: Yes, tubal ligation and reversal; salpingectomy as above - h/o smoking: No Histories updated. Objective BP 135/88 Pulse 82 Wt 96.4 kg (212 lb 8.4 oz) LMP 10/06/2024 (Exact Date) BMI 34.30 kg/m? Physical Exam Constitutional: Appearance: Normal appearance. Pulmonary: Effort: Pulmonary effort is normal. Neurological: Mental Status: She is alert and oriented to person, place, and time. Psychiatric: Mood and Affect: Mood normal. Behavior: Behavior normal. Labs: Lab Results Component Value Date HB 12.2 02/06/2024 PLT 252 02/06/2024 AST 17 06/02/2024 ALT 13 06/02/2024 CREAT 0.85 08/18/2024 RH Positive 02/06/2024 ABORHD O POSITIVE 06/15/2021 HCGQT 2,988.0 (H) 11/17/2024 HCGQT 1,072.0 (H) 11/15/2024 HCGQT 409.0 (H) 11/13/2024 HCG 147 (3/4) 409 (3/6) 1072 (38) 2988 (11/17) Imaging: US 11/20/24 Indication Confirmation of intrauterine Impression Single intrauterine gestational sac and yolk sac visualized. No pole is visualized. of uncertain prognosis. Recommendations Repeat ultrasound in at least 11 days to confirm cardiac activity. Method Transvaginal ultrasound examination. View: Adequate visualization Number of embryos: none Dating LMP on: 10/06/2024 GA by LMP 6 w + 3 d SANDIE by LMP: 07/13/2025 Assigned: based on the LMP, selected on 11/20/2024 Assigned GA 6 w + 3 d Assigned SANDIE: 07/13/2025 Biometry Extended GS 7.8 mm -/- 3% Scott YS 1.8 mm <1% Grisolia Assessment Gestational sac: visualized GS 7.8 mm -/- 3% Scott Location: intrauterine Yolk sac: visualized YS 1.8 mm <1% Grisolia Embryo: not visualized Performed By: Keyshawn Wells Read By: Keyshawn Wells Assessment / Plan 34 year old at 6w3d with IUP with uncertain prognosis. We reviewed that prognosis of this remains uncertain as no pole was visualized on ultrasound. We also discussed repeat ultrasound in 11 days, and that absence of cardiac motion at that time would be diagnostic of early loss. Follow-up: - for repeat POCUS in at least 11 days Medical Decision Making: Problems: Moderate: New problem with uncertain prognosis Data: Unique test result(s) reviewed: 3+ Unique test(s) ordered: 1 Risk: Minimal: Minimal risk from testing/treatment Medical Decision Making Level: 4 - Moderate Signature: Keyshawn Wells MD [facility] 11-18-2024 Telephone encounter Note [facility] RN Coordination Date of Referral: 11/10/2024 Reason for Referral: +HPT, previous [facility] 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 viability POCUS ~6wks Last contact: HCG: __ (11/11) US: none Ref by: Self referral. Previous PEAC pt. JS/ AB 11/10/2024 Phone Called pt, verified name and . Introduced self and PEAC. LMP: 10/06 +HPT 11/08. Denies VB or pain. Will trend HCGs per Dr Franco. Scheduled for viab pocus 11/20@[address] [place] [address] pending HCG trend.Reviewed SAB/bleeding and ectopic precautions, advised pt to present to the ED if she develops heavy VB saturating a pad in an hour or less for >2 hrs in a row, passing blood clots > or = to the size of a golf ball, and/or severe pain; pt verbalizes understanding. JS 11/12/2024 MyChart MCM sent JS 11/18/24 MYCHART MCM sent HH [facility] 11-18-2024 Miscellaneous Notes [facility] RN Coordination Date of Referral: 11/10/2024 Reason for Referral: +HPT, previous PEAC 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 viability POCUS ~6wks Last contact: HCG: __ (11/11) US: none Ref by: Self referral. Previous PEAC pt. JS/ AB 11/10/2024 Phone Called pt, verified name and . Introduced self and PEAC. LMP: 10/06 +HPT 11/08. Denies VB or pain. Will trend HCGs per Dr Franco. Scheduled for viab pocus 11/20@[address] [place] [address] pending HCG trend.Reviewed SAB/bleeding and ectopic precautions, advised pt to present to the ED if she develops heavy VB saturating a pad in an hour or less for >2 hrs in a row, passing blood clots > or = to the size of a golf ball, and/or severe pain; pt verbalizes understanding. JS 11/12/2024 MyChart MCM sent JS 11/18/24 MYCHART MCM sent HH documented in this encounter [facility] 11-12-2024 Telephone encounter Note See [facility] encounter [facility] 11-12-2024 Miscellaneous Notes See [facility] encounter documented in this encounter [facility] [place] 11-12-2024 Telephone encounter Note Early Assessment Clinic RN Coordination Date of Referral: 11/10/2024 Reason for Referral: +HPT, previous PEAC pt Primary SENIOR ASSET MANAGER Provider: Documentation of Patient Contact: Date: Contact Type: Details: Sign: 11/10/2024 Ref Review 030 +HPT Rh LMP 10/06 [ ] intro, trend hcg. viability POCUS ~6wks Last contact: HCG: __ (11/11) US: none Ref by: Self referral. Previous PEAC pt. JS/ AB 11/10/2024 Phone Called pt, verified name and . Introduced self and PEAC. LMP: 10/06 +HPT 11/08. Denies VB or pain. Will trend HCGs per Dr Franco. Scheduled for viab pocus 11/20@915a- [place] pending HCG trend.Reviewed SAB/bleeding and ectopic precautions, advised pt to present to the ED if she develops heavy VB saturating a pad in an hour or less for >2 hrs in a row, passing blood clots > or = to the size of a golf ball, and/or severe pain; pt verbalizes understanding. JS 11/12/2024 Shala MCM sent JS [facility] 11-12-2024 Miscellaneous Notes Early Assessment Clinic RN Coordination Date of Referral: 11/10/2024 Reason for Referral: +HPT, previous PEAC pt Primary SENIOR ASSET MANAGER Provider: Documentation of Patient Contact: Date: Contact Type: Details: Sign: 11/10/2024 Ref Review 303 +HPT Rh LMP 10/06 [ ] intro, trend hcg. viability POCUS ~6wks Last contact: HCG: __ (11/11) US: none Ref by: Self referral. Previous PEAC pt. JS/ AB 11/10/2024 Phone Called pt, verified name and . Introduced self and PEAC. LMP: 10/06 +HPT 3. Denies VB or pain. Will trend HCGs per Dr Franco. Scheduled for viab pocus 11/20@915a- [place] pending HCG trend.Reviewed SAB/bleeding and ectopic precautions, advised pt to present to the ED if she develops heavy VB saturating a pad in an hour or less for >2 hrs in a row, passing blood clots > or = to the size of a golf ball, and/or severe pain; pt verbalizes understanding. JS 11/12/2024 Saundrat [facility] sent JS documented in this encounter [facility] [place] 11-10-2024 Telephone encounter Note Early Assessment Clinic RN Coordination Date of Referral: 11/10/2024 Reason for Referral: +HPT, previous PEAC 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 viability POCUS ~6wks Last contact: HCG: __ (11/11) US: none Ref by: Self referral. Previous PEAC pt. JS/ AB 11/10/2024 Phone Called pt, verified name and . Introduced self and PEAC. LMP: 10/06 +HPT 11/08. Denies VB or pain. Will trend HCGs per Dr Franco. Scheduled for viab pocus 11/20@[address] [place] [address] pending HCG trend.Reviewed SAB/bleeding and ectopic precautions, advised pt to present to the ED if she develops heavy VB saturating a pad in an hour or less for >2 hrs in a row, passing blood clots > or = to the size of a golf ball, and/or severe pain; pt verbalizes understanding. JS [facility] [place] 11-10-2024 Miscellaneous Notes Early Assessment Clinic RN Coordination Date of Referral: 11/10/2024 Reason for Referral: +HPT, previous PEAC 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 viability POCUS ~6wks Last contact: HCG: __ (11/11) US: none Ref by: Self referral. Previous PEAC pt. JS/ AB 11/10/2024 Phone Called pt, verified name and . Introduced self and PEAC. LMP: 10/06 +HPT 11/08. Denies VB or pain. Will trend HCGs per Dr Franco. Scheduled for viab pocus 11/20@[address] [place] [address] pending HCG trend.Reviewed SAB/bleeding and ectopic precautions, advised pt to present to the ED if she develops heavy VB saturating a pad in an hour or less for >2 hrs in a row, passing blood clots > or = to the size of a golf ball, and/or severe pain; pt verbalizes understanding. JS documented in this encounter [facility] [place] 09-02-2024 Note HNO ID: [id number] Author: AUTUMN HOLT MD Service: ? Author Type: Physician Type: Progress Notes Filed: 09/02/2024 10:28 Note Text: Rheumatology Outpatient Clinic - Virtual Visit Date of Service: 09/02/2024 Patient: Lucie Dent Medical Record: [id number] Primary Care Physician: Maryjo Anguiano, TONEY, DONOR SUPPORT TECHNICIAN Last Rheumatology visit: 08/18/2024 (with Autumn Holt) History of Present Illness Lucie Dent is a 34 year old White female who presents on 09/02/2024 for a virtual visit for Arthralgias. She is currently taking ibuprofen. Her most recent DALE was negative (08/18/2024). HISTORY OF PRESENT ILLNESS This patient presents with complaints of multiple miscarriages and and indeterminate lupus anticoagulant study. Patient does states that she has had multiple miscarriages in the past nearly 2 years. 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 All other antibody profiling such as the anticardiolipin antibody and beta-2 glycoprotein antibodies are normal and noncontributory. Upon further questioning the patient has a grandmother with a definitive diagnosis of lupus. 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 He has spontaneous oral ulcers are multiple at times when they do occur particularly on the gumline. She has daily joint stiffness worse in the morning can last all day. The joint stiffness can escalate after periods of inactivity such as sitting for half an hour or more. She denies any jatinder joint swelling. However she does retain fluid to a subtle degree in her feet and ankles. She denies any typical rash of lupus or other connective tissue disease. She has no other personal history of clotting abnormalities such as DVT/PE or arterial clots previously. INTERVAL HISTORY I have communicated my name and active licensure. The patient's identity and physical location were verified at the time of this visit. The patient has been informed of the risks and benefits of -- and alternatives to -- treatment through a remote evaluation and consents to proceed with the evaluation remotely. I have confirmed that the patient is in [place] today and have checked in to confirm her consent to be seen virtually. Patient returns virtually for reevaluation and management of multiple loss and arthralgias. Since last visit the patient underwent additional blood testing for possible lupus and her DALE and all that other parameters for lupus are negative or normal. It is highly unlikely that she has systemic lupus at this point. She has not developed any new signs or symptoms of any other connective tissue disease since last visit. Patient-Entered Data PAIN EVALUATION No data found in the last 1 encounters. PROMIS Assessments 08/18/2024 06/08/2021 PROMIS Assessments Physical Health Percentile 41 78 Mental Health Percentile 26 73 Pain Score 4 5 Pain Interference Percentile 34 Fatigue Percentile 10 Physical Function Percentile 69 RAPID 3 [place] Activities of Daily Living 08/18/2024 9:39 AM Dress self? Without ANY difficulty Get in and out of bed? Without ANY difficulty Walk outdoors? Without ANY difficulty Wash and dry body? Without ANY difficulty Get in and out of car? Without ANY difficulty RAPID 3 Disease Activity Weighed Score Levels: 0 - 1: Near Remission 1.3 - 2.0: Low Severity 2.3 - 4.0: Moderate Severity 4.3 - 10.0: High Severity 08/18/2024 RAPID-3 Weighed Score RAPID 3 Weighed Score 1 (Minimal to no symptoms) Impression Diagnoses: (M25.50) Arthralgia, unspecified joint (primary encounter diagnosis) (N96) Recurrent loss Plan Orders this visit: No orders found for this visit on 09/02/24. Discussed the current status of her recurrent loss and arthralgias and there is little in the way of new information from her most recent evaluation and lab testing. I do not believe she has active systemic lupus or any other active autoimmune/connective tissue disease at this time. However given the fact that she had 1 borderline cardiolipin antibody profile lab that was abnormal this should be repeated September 19 or later to allow for a 12-week interval to identify if she in fact has an anticardiolipin antibody syndrome separate and distinct from her current evaluation. Presently I will await the results of the anticardiolipin follow-up in September and if these are negative no further rheumatologic intervention will be needed. If they come back elevated once again we will need to consider this as a diagnostic possibility and treat accordingly. I have as (more content not included)... [facility] 09-02-2024 History of Present illness Narrative Images from the original note were not included. Rheumatology Outpatient Clinic - Virtual Visit Date of Service: 09/02/2024 Patient: Lucie Dent Medical Record: [id number] Primary Care Physician: Maryjo Anguiano, TONEY, DONOR SUPPORT TECHNICIAN Last Rheumatology visit: 08/18/2024 (with Autumn Holt) History of Present Illness Lucie Dent is a 34 year old White female who presents on 09/02/2024 for a virtual visit for Arthralgias. She is currently taking ibuprofen. Her most recent DALE was negative (08/18/2024). HISTORY OF PRESENT ILLNESS This patient presents with complaints of multiple miscarriages and and indeterminate lupus anticoagulant study. Patient does states that she has had multiple miscarriages in the past nearly 2 years. 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 All other antibody profiling such as the anticardiolipin antibody and beta-2 glycoprotein antibodies are normal and noncontributory. Upon further questioning the patient has a grandmother with a definitive diagnosis of lupus. With the patient's review of systems though she has had hair loss ongoing for the better part of 4 years and just recently was thought to have Jsoe's thyroiditis at least serologically but does not clinically require treatment at this time. He has spontaneous oral ulcers are multiple at times when they do occur particularly on the gumline. She has daily joint stiffness worse in the morning can last all day. The joint stiffness can escalate after periods of inactivity such as sitting for half an hour or more. She denies any jatinder joint swelling. However she does retain fluid to a subtle degree in her feet and ankles. She denies any typical rash of lupus or other connective tissue disease. She has no other personal history of clotting abnormalities such as DVT/PE or arterial clots previously. INTERVAL HISTORY I have communicated my name and active licensure. The patient's identity and physical location were verified at the time of this visit. The patient has been informed of the risks and benefits of -- and alternatives to -- treatment through a remote evaluation and consents to proceed with the evaluation remotely. I have confirmed that the patient is in [place] today and have checked in to confirm her consent to be seen virtually. Patient returns virtually for reevaluation and management of multiple loss and arthralgias. Since last visit the patient underwent additional blood testing for possible lupus and her DALE and all that other parameters for lupus are negative or normal. It is highly unlikely that she has systemic lupus at this point. She has not developed any new signs or symptoms of any other connective tissue disease since last visit. Patient-Entered Data PAIN EVALUATION No data found in the last 1 encounters. PROMIS Assessments 08/18/2024 06/08/2021 PROMIS Assessments Physical Health Percentile 41 78 Mental Health Percentile 26 73 Pain Score 4 5 Pain Interference Percentile 34 Fatigue Percentile 10 Physical Function Percentile 69 RAPID 3 [place] Activities of Daily Living 08/18/2024 9:39 AM Dress self? Without ANY difficulty Get in and out of bed? Without ANY difficulty Walk outdoors? Without ANY difficulty Wash and dry body? Without ANY difficulty Get in and out of car? Without ANY difficulty RAPID 3 Disease Activity Weighed Score Levels: 0 - 1: Near Remission 1.3 - 2.0: Low Severity 2.3 - 4.0: Moderate Severity 4.3 - 10.0: High Severity 08/18/2024 RAPID-3 Weighed Score RAPID 3 Weighed Score 1 (Minimal to no symptoms) Impression Diagnoses: (M25.50) Arthralgia, unspecified joint (primary encounter diagnosis) (N96) Recurrent loss Plan Orders this visit: No orders found for this visit on 09/02/24. Discussed the current status of her recurrent loss and arthralgias and there is little in the way of new information from her most recent evaluation and lab testing. I do not believe she has active systemic lupus or any other active autoimmune/connective tissue disease at this time. However given the fact that she had 1 borderline cardiolipin antibody profile lab that was abnormal this should be repeated September 19 or later to allow for a 12-week interval to identify if she in fact has an anticardiolipin antibody syndrome separate and distinct from her current evaluation. Presently I will await the results of the anticardiolipin follow-up in September and if these are negative no further rheumatologic intervention will be needed. If they come back elevated once again we will need to consider this as a diagnostic possibility and treat accordingly. I have asked the patient to reach out to me to remind me of these results as I am not the ordering physician for them. Return if symptoms worsen or fail to improve. Subjective Review of Systems Review of Systems CONSTITUTION: Positive for: Recent weight change Negative for: Fever HEENT: Positive for: Mouth sores Negative for: Nosebleeds, Trouble swallowing and Dry mouth RESPIRATORY: Positive for: Cough Negative for: Shortness of breath, Pain with breathing and Coughing up blood GASTROINTESTINAL: Positive for: Diarrhea Negative for: Melena, Heartburn and Abdominal pain MUSCULOSKELETAL: Positive for: Arthralgias and Morning Joint Stiffness Negative for: Myalgias, Muscle weakness and Joint swelling NEUROLOGICAL: Positive for: Headaches and Numbness Negative for: Memory loss SKIN: Positive for: Hair loss Negative for: Rash, Skin changes and Nail changes EYES: Negative for: Eye pain, Eye redness, Eye dryness and visual disturbance CARDIOVASCULAR: Positive for: Leg swelling Negative for: Chest pain GENITOURINARY: Negative for: Dysuria and Hematuria HEMATOLOGIC/LYMPHATIC: Negative for: Swollen glands All other reviewed and negative other than HPI. Past Medical History PAST MEDICAL HISTORY Diagnosis Date Anemia Anxiety Asthma Depression Ectopic 2021 Fetus with trisomy 13, single gestation 02/08/2024 History of depression PCOS (polycystic ovarian syndrome) 2019 depression Past Surgical History PAST SURGICAL HISTORY Procedure Laterality Date DELIVERY ONLY , low transverse DELIVERY ONLY , low transverse DELIVERY ONLY , low transverse HSG LIG/TRNSXJ FLP TUBE ABDL/VAG APPR UNI/BI 2017 Tubal ligation MANUAL VACUUM ASPIRATION 06/02/2024 SALPINGECTOMY 09/07/2021 RIGHT SIDE - ectopic at [facility] TONSILLECTOMY AND ADENOIDECTOMY HX UNL LAP TUBAL ANASTOMOSIS Bilateral Family History FAMILY HISTORY Problem Relation Age of Onset Fibromyalgia Mother other (Endometrosis) Mother other (Rheumatoid Arthritis) Mother Anxiety disorder Mother Depression Mother No Known Problems Father no relationship Asthma Sister Depression Brother Asthma Brother Hypertension Brother Asthma Maternal Grandmother Heart Maternal Grandmother Systemic Lupus Erythematosus Maternal Grandmother Diabetes Maternal Grandmother No Known Problems Maternal Grandfather No Known Problems Daughter No Known Problems Son No Known Problems Son Anesthesia Problems No Family History Social History Social History Tobacco Use Smoking status: Every Day Smokeless tobacco: Never Tobacco comments: Vape Vaping Use Vaping status: current everyday user Substances: Nicotine (OCCASIONAL) Substance Use Topics Alcohol use: Yes Comment: Socially Drug use: Never Objective Current Medications Current Outpatient Medications Medication Sig L-Norgest and E Estradiol-E Estrad (SEASONIQUE) 0.15 mg-30 mcg (84)/10 mcg (7) Take 1 tablet by mouth once daily. ibuprofen (MOTRIN) 600 mg tablet Take 1 tablet by mouth every 6 hours as needed for pain or fever (specify temp.). ibuprofen (MOTRIN) 600 mg tablet Take 1 tablet by mouth every 6 hours as needed for pain. Take with food. ondansetron orally disintegrating (ZOFRAN ODT) 4 mg disintegrating tablet Take 1 tablet by mouth every 8 hours as needed for nausea/vomiting. Cholecalciferol, Vitamin D3, 50 mcg (2,000 unit) cap busPIRone (BUSPAR) 5 mg tablet Take 1 tablet by mouth three times a day. ferrous sulfate (IRON ORAL) Take by mouth. acetaminophen (TYLENOL EXTRA STRENGTH) 500 mg tablet Take 2 tablets by mouth every 8 hours as needed for pain. PNV/iron/omega3/folic acid/min (PRENAT RD-USXG-RE-YJ-WH6-HYCTX ORAL) Take by mouth. sertraline HCl (ZOLOFT ORAL) Take 100 mg by mouth once daily. Pt is taking 1 and 1/2 tablets daily (Patient not taking: Reported on 08/18/2024) No current facility-administered medications for this visit. Labs Latest Ref Rng & Units 02/06/2024 12/20/2023 03/23/2023 06/09/2021 CBC WBC 3.70 - 11.00 k/uL 9.20 5.67 5.92 6.08 Hemoglobin 11.5 - 15.5 g/dL 12.2 13.6 13.8 13.2 12.7 Hematocrit 36.0 - 46.0 % 37.0 40.8 41.9 38.2 39.2 Platelet Count 150 - 400 k/uL 252 255 239 243 Abs Neut (ANC) 1.45 - 7.50 k/uL 4.46 Abs Lymph 1.00 - 4.00 k/uL 1.01 Latest Ref Rng & Units 08/18/2024 06/02/2024 CMP Sodium 136 - 144 mmol/L 138 Potassium 3.7 - 5.1 mmol/L 4.3 Chloride 98 - 107 mmol/L 105 CO2 22 - 30 mmol/L 22 Glucose 74 - 99 mg/dL 87 BUN 7 - 21 mg/dL 14 Creatinine 0.58 - 0.96 mg/dL 0.85 0.78 Calcium 8.5 - 10.2 mg/dL 9.0 AST 13 - 35 U/L 17 ALT 7 - 38 U/L 13 Alkaline Phosphatase 34 - 123 U/L 49 Latest Ref Rng & Units 08/18/2024 ESR, WSR WSR 0 - 20 mm/hr 13 Latest Ref Rng & Units 08/18/2024 CRP CRP <0.9 mg/dL <0.3 Latest Ref Rng & Units 08/18/2024 C3, C4 C3 86 - 166 mg/dL 132 C4 13 - 46 mg/dL 22 Latest Ref Rng & Units 12/20/2023 Hepatitis Screen Hep C Antibody IA Negative Negative Hep B Surface Ag Negative Negative Hb Screen Pathologist Interp Reviewed by Chava Andres MD, PhD Latest Ref Rng & Units 08/18/2024 06/27/2024 Antibodies DALE Negative Negative Beta 2 Glycoprotein, IgM <20 SMU <20 SMU <9 <9 Cardiolipin Ab, IgG <15.0 GPL <15.0 GPL 13.0 12.2 Cardiolipin Ab, IgM <12.5 MPL <12.5 MPL <9.0 <9.0 Cardiolipin Ab, IgA <12.0 APL <12.0 APL <9.0 <9.0 PT Sec <13.1 sec 9.8 PT INR 0.9 - 1.3 1.0 APTT 23.0 - 32.4 sec 28.4 Platelet Neut <1.9 Seconds 3.3 DRVVT Screen 32.0 - 45.7 seconds 38.9 DRVVT Confirm Ratio <1.32 1.28 DRVVT 1:1 Mix 32.0 - 45.7 seconds 37.2 Hex Phase Screen 34.0 - 51.8 seconds 54.0 Hex Phase Confirm 34.2 - 47.9 seconds 48.3 Hex Phase Delta <7.1 delta seconds 5.7 APTT Screen 24.0 - 35.1 seconds 31.9 Thrombin Time <18.6 seconds <16.8 Anti Xa Inhib Assay <0.10 <0.10 Latest Ref Rng & Units 08/18/2024 10/23/2022 07/21/2020 Urinalysis Protein, Urine Trace, Negative Negative negative PROTEIN UA (POCT) Negative mg/dL Negative RBC, Urine 0-3 /HPF 0-3 /HPF Protein/Creat Ratio <0.15 mg/mg <0.12 Imaging Last XR Hand/Finger - Impression Only No resulted procedures found. Last MRI Hand - Impression Only No resulted procedures found. Last XR Chest - Impression Only No resulted procedures found. Last XR Cervical Spine - Impression Only No resulted procedures found. Health Maintenance Current Immunizations Never Reviewed No immunizations on file. Physical Exam General: Looks well, NAD, A & Ox3. Resp: No acute distress Neuro: No facial asymmetry; normal cognition Skin: No facial rash or lesions Musculoskeletal: No joint swelling I spent a total of 30 minutes on the date of the service which included preparing to see the patient, [id number] patient care, completing clinical documentation, obtaining and/or reviewing separately obtained history, performing a medically appropriate examination, counseling and educating the patient/family/caregiver, independently interpreting results (not separately reported), and communicating results to the patient/family/caregiver. Medical Decision Making: Problems: Moderate: 1+ chronic illnesses with change Data: Unique test result(s) reviewed: 3+ Risk: Moderate: Moderate risk from testing/treatment Medical Decision Making Level: 4 - Moderate Autumn Holt MD Rheumatology Date: September 02, 2024 Time: 9:43 AM documented in this encounter [facility] [place] 08-18-2024 Note HNO ID: [id number] Author: AUTUMN HOLT MD Service: ? Author Type: Physician Type: Progress Notes Filed: 08/18/2024 13:55 Note Text: Rheumatology Outpatient Clinic Date of Service: 08/18/2024 Patient: Lucie Dent Medical Record: [id number] Primary Care Physician: Maryjo Anguiano, DONOR SUPPORT TECHNICIAN, DONOR SUPPORT TECHNICIAN Last Rheumatology visit: None at [facility] [place] Referring Provider: Suzi Franco [address] [facility] [address] Peguero for an opinion regarding indeterminate lupus anticoagulant. My final recommendations will be communicated back to the requesting physician by way of shared Medical record or letter to requesting physician via US mail. History of Present Illness Lucie Dent is a 34 year old White female who presents on 08/18/2024 for an in-person visit for evaluation of New Patient and Abnormal Lab. She is currently taking ibuprofen. HISTORY OF PRESENT ILLNESS This patient presents with complaints of multiple miscarriages and and indeterminate lupus anticoagulant study. Patient does states that she has had multiple miscarriages in the past nearly 2 years. 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 All other antibody profiling such as the anticardiolipin antibody and beta-2 glycoprotein antibodies are normal and noncontributory. Upon further questioning the patient has a grandmother with a definitive diagnosis of lupus. 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 He has spontaneous oral ulcers are multiple at times when they do occur particularly on the gumline. She has daily joint stiffness worse in the morning can last all day. The joint stiffness can escalate after periods of inactivity such as sitting for half an hour or more. She denies any jatinder joint swelling. However she does retain fluid to a subtle degree in her feet and ankles. She denies any typical rash of lupus or other connective tissue disease. She has no other personal history of clotting abnormalities such as DVT/PE or arterial clots previously. Patient-Entered Data PAIN EVALUATION No data found in the last 1 encounters. PROMIS Assessments 08/18/2024 06/08/2021 PROMIS Assessments Physical Health Percentile 41 78 Mental Health Percentile 26 73 Pain Score 4 5 Pain Interference Percentile 34 Fatigue Percentile 10 Physical Function Percentile 69 RAPID 3 [place] Activities of Daily Living 08/18/2024 9:39 AM Dress self? Without ANY difficulty Get in and out of bed? Without ANY difficulty Walk outdoors? Without ANY difficulty Wash and dry body? Without ANY difficulty Get in and out of car? Without ANY difficulty RAPID 3 Disease Activity Weighed Score Levels: 0 - 1: Near Remission 1.3 - 2.0: Low Severity 2.3 - 4.0: Moderate Severity 4.3 - 10.0: High Severity 08/18/2024 RAPID-3 Weighed Score RAPID 3 Weighed Score 1 (Minimal to no symptoms) Review of Systems Review of Systems CONSTITUTION: Negative for: Fever and Recent weight change HEENT: Positive for: Mouth sores Negative for: Nosebleeds, Trouble swallowing and Dry mouth RESPIRATORY: Negative for: Cough, Shortness of breath and Pain with breathing GASTROINTESTINAL: Positive for: Diarrhea and Heartburn Negative for: Melena and Abdominal pain MUSCULOSKELETAL: Positive for: Arthralgias, Myalgias and Morning Joint Stiffness Negative for: Muscle weakness and Joint swelling NEUROLOGICAL: Positive for: Headaches, Numbness and Memory loss SKIN: Positive for: Hair loss and Nail changes Negative for: Rash and Skin changes EYES: Positive for: Eye redness, Eye dryness and Visual disturbance Negative for: Eye pain CARDIOVASCULAR: Positive for: Leg swelling Negative for: Chest pain GENITOURINARY: Negative for: Dysuria and Hematuria HEMATOLOGIC/LYMPHATIC: Positive for: Swollen glands All other reviewed and negative other than HPI. Past Medical History PAST MEDICAL HISTORY Diagnosis Date Anemia Anxiety Asthma Depression Ectopic 2021 Fetus with trisomy 13, single gestation 02/08/2024 History of depression PCOS (polycystic ovarian syndrome) 2019 depression Past Surgical History PAST SURGICAL HISTORY Procedure Laterality Date DELIVERY ONLY , low transverse DELIVERY ONLY , low transverse DELIVERY ONLY , low transverse HSG LIG/TRNSXJ FLP TUBE ABDL/VAG APPR UNI/BI 2018 Tubal ligation MANUAL VACUUM ASPIRATION 06/02/2024 SALPINGECTOMY 09/07/2021 RIGHT SIDE - ectopic at [facility] T (more content not included)... [facility] 08-18-2024 History of Present illness Narrative Images from the original note were not included. Rheumatology Outpatient Clinic Date of Service: 08/18/2024 Patient: Lucie Dent Medical Record: [id number] Primary Care Physician: Maryjo Anguiano, DONOR SUPPORT TECHNICIAN, DONOR SUPPORT TECHNICIAN Last Rheumatology visit: None at [facility] [place] Referring Provider: Suzi Franco [address] [id number] Consultation requested by Dr. Peguero for an opinion regarding indeterminate lupus anticoagulant. My final recommendations will be communicated back to the requesting physician by way of shared Medical record or letter to requesting physician via US mail. History of Present Illness Lucie Dent is a 34 year old White female who presents on 08/18/2024 for an in-person visit for evaluation of New Patient and Abnormal Lab. She is currently taking ibuprofen. HISTORY OF PRESENT ILLNESS This patient presents with complaints of multiple miscarriages and and indeterminate lupus anticoagulant study. Patient does states that she has had multiple miscarriages in the past nearly 2 years. 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 All other antibody profiling such as the anticardiolipin antibody and beta-2 glycoprotein antibodies are normal and noncontributory. Upon further questioning the patient has a grandmother with a definitive diagnosis of lupus. 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 He has spontaneous oral ulcers are multiple at times when they do occur particularly on the gumline. She has daily joint stiffness worse in the morning can last all day. The joint stiffness can escalate after periods of inactivity such as sitting for half an hour or more. She denies any jatinder joint swelling. However she does retain fluid to a subtle degree in her feet and ankles. She denies any typical rash of lupus or other connective tissue disease. She has no other personal history of clotting abnormalities such as DVT/PE or arterial clots previously. Patient-Entered Data PAIN EVALUATION No data found in the last 1 encounters. PROMIS Assessments 08/18/2024 06/08/2021 PROMIS Assessments Physical Health Percentile 41 78 Mental Health Percentile 26 73 Pain Score 4 5 Pain Interference Percentile 34 Fatigue Percentile 10 Physical Function Percentile 69 RAPID 3 [place] Activities of Daily Living 08/18/2024 9:39 AM Dress self? Without ANY difficulty Get in and out of bed? Without ANY difficulty Walk outdoors? Without ANY difficulty Wash and dry body? Without ANY difficulty Get in and out of car? Without ANY difficulty RAPID 3 Disease Activity Weighed Score Levels: 0 - 1: Near Remission 1.3 - 2.0: Low Severity 2.3 - 4.0: Moderate Severity 4.3 - 10.0: High Severity 08/18/2024 RAPID-3 Weighed Score RAPID 3 Weighed Score 1 (Minimal to no symptoms) Review of Systems Review of Systems CONSTITUTION: Negative for: Fever and Recent weight change HEENT: Positive for: Mouth sores Negative for: Nosebleeds, Trouble swallowing and Dry mouth RESPIRATORY: Negative for: Cough, Shortness of breath and Pain with breathing GASTROINTESTINAL: Positive for: Diarrhea and Heartburn Negative for: Melena and Abdominal pain MUSCULOSKELETAL: Positive for: Arthralgias, Myalgias and Morning Joint Stiffness Negative for: Muscle weakness and Joint swelling NEUROLOGICAL: Positive for: Headaches, Numbness and Memory loss SKIN: Positive for: Hair loss and Nail changes Negative for: Rash and Skin changes EYES: Positive for: Eye redness, Eye dryness and Visual disturbance Negative for: Eye pain CARDIOVASCULAR: Positive for: Leg swelling Negative for: Chest pain GENITOURINARY: Negative for: Dysuria and Hematuria HEMATOLOGIC/LYMPHATIC: Positive for: Swollen glands All other reviewed and negative other than HPI. Past Medical History PAST MEDICAL HISTORY Diagnosis Date Anemia Anxiety Asthma Depression Ectopic 2021 Fetus with trisomy 13, single gestation 02/08/2024 History of depression PCOS (polycystic ovarian syndrome) 2019 depression Past Surgical History PAST SURGICAL HISTORY Procedure Laterality Date DELIVERY ONLY , low transverse DELIVERY ONLY , low transverse DELIVERY ONLY , low transverse HSG LIG/TRNSXJ FLP TUBE ABDL/VAG APPR UNI/BI 2017 Tubal ligation MANUAL VACUUM ASPIRATION 06/02/2024 SALPINGECTOMY 09/07/2021 RIGHT SIDE - ectopic at [facility] TONSILLECTOMY AND ADENOIDECTOMY HX UNL LAP TUBAL ANASTOMOSIS Bilateral Family History FAMILY HISTORY Problem Relation Age of Onset Fibromyalgia Mother other (Endometrosis) Mother other (Rheumatoid Arthritis) Mother Anxiety disorder Mother Depression Mother No Known Problems Father no relationship Asthma Sister Depression Brother Asthma Brother Hypertension Brother Asthma Maternal Grandmother Heart Maternal Grandmother Systemic Lupus Erythematosus Maternal Grandmother Diabetes Maternal Grandmother No Known Problems Maternal Grandfather No Known Problems Daughter No Known Problems Son No Known Problems Son Anesthesia Problems No Family History Social History Social History Tobacco Use Smoking status: Every Day Smokeless tobacco: Never Tobacco comments: Vape Vaping Use Vaping status: current everyday user Substances: Nicotine (OCCASIONAL) Substance Use Topics Alcohol use: Yes Comment: Socially Drug use: Never Current Medications Current Outpatient Medications Medication Sig L-Norgest and E Estradiol-E Estrad (SEASONIQUE) 0.15 mg-30 mcg (84)/10 mcg (7) Take 1 tablet by mouth once daily. ibuprofen (MOTRIN) 600 mg tablet Take 1 tablet by mouth every 6 hours as needed for pain or fever (specify temp.). ibuprofen (MOTRIN) 600 mg tablet Take 1 tablet by mouth every 6 hours as needed for pain. Take with food. ondansetron orally disintegrating (ZOFRAN ODT) 4 mg disintegrating tablet Take 1 tablet by mouth every 8 hours as needed for nausea/vomiting. Cholecalciferol, Vitamin D3, 50 mcg (2,000 unit) cap busPIRone (BUSPAR) 5 mg tablet Take 1 tablet by mouth three times a day. ferrous sulfate (IRON ORAL) Take by mouth. acetaminophen (TYLENOL EXTRA STRENGTH) 500 mg tablet Take 2 tablets by mouth every 8 hours as needed for pain. PNV/iron/omega3/folic acid/min (PRENAT [id number] ORAL) Take by mouth. sertraline HCl (ZOLOFT ORAL) Take 100 mg by mouth once daily. Pt is taking 1 and 1/2 tablets daily (Patient not taking: Reported on 08/18/2024) No current facility-administered medications for this visit. Labs Latest Ref Rng & Units 02/06/2024 12/20/2023 03/23/2023 06/09/2021 CBC WBC 3.70 - 11.00 k/uL 9.20 5.67 5.92 6.08 Hemoglobin 11.5 - 15.5 g/dL 12.2 13.6 13.8 13.2 12.7 Hematocrit 36.0 - 46.0 % 37.0 40.8 41.9 38.2 39.2 Platelet Count 150 - 400 k/uL 252 255 239 243 Abs Neut (ANC) 1.45 - 7.50 k/uL 4.46 Abs Lymph 1.00 - 4.00 k/uL 1.01 Latest Ref Rng & Units 06/02/2024 CMP Sodium 136 - 144 mmol/L 138 Potassium 3.7 - 5.1 mmol/L 4.3 Chloride 98 - 107 mmol/L 105 CO2 22 - 30 mmol/L 22 Glucose 74 - 99 mg/dL 87 BUN 7 - 21 mg/dL 14 Creatinine 0.58 - 0.96 mg/dL 0.78 Calcium 8.5 - 10.2 mg/dL 9.0 AST 13 - 35 U/L 17 ALT 7 - 38 U/L 13 Alkaline Phosphatase 34 - 123 U/L 49 Latest Ref Rng & Units 12/20/2023 Hepatitis Screen Hep C Antibody IA Negative Negative Hep B Surface Ag Negative Negative Hb Screen Pathologist Interp Reviewed by Chava Andres MD, PhD Latest Ref Rng & Units 06/27/2024 Antibodies Beta 2 Glycoprotein, IgM <20 SMU <20 SMU <9 <9 Cardiolipin Ab, IgG <15.0 GPL <15.0 GPL 13.0 12.2 Cardiolipin Ab, IgM <12.5 MPL <12.5 MPL <9.0 <9.0 Cardiolipin Ab, IgA <12.0 APL <12.0 APL <9.0 <9.0 PT Sec <13.1 sec 9.8 PT INR 0.9 - 1.3 1.0 APTT 23.0 - 32.4 sec 28.4 Platelet Neut <1.9 Seconds 3.3 DRVVT Screen 32.0 - 45.7 seconds 38.9 DRVVT Confirm Ratio <1.32 1.28 DRVVT 1:1 Mix 32.0 - 45.7 seconds 37.2 Hex Phase Screen 34.0 - 51.8 seconds 54.0 Hex Phase Confirm 34.2 - 47.9 seconds 48.3 Hex Phase Delta <7.1 delta seconds 5.7 APTT Screen 24.0 - 35.1 seconds 31.9 Thrombin Time <18.6 seconds <16.8 Anti Xa Inhib Assay <0.10 <0.10 Latest Ref Rng & Units 10/23/2022 07/21/2020 Urinalysis Protein, Urine Neg mg/dL negative PROTEIN UA (POCT) Negative mg/dL Negative Imaging Last XR Hand/Finger - Impression Only No resulted procedures found. Last MRI Hand - Impression Only No resulted procedures found. Last XR Chest - Impression Only No resulted procedures found. Last XR Cervical Spine - Impression Only No resulted procedures found. Health Maintenance Current Immunizations Never Reviewed No immunizations on file. Physical Exam GENERAL APPEARANCE: Well groomed. Alert and oriented x 3. In no distress. VITAL SIGNS: BP 115/81 Pulse 73 Resp 16 Wt 210 lb 12.2 oz (95.6kg) LMP 09/10/2023 SKIN: No rash, thickening, nodules, discoloration. EYES: PERRL, EOMI. No inflammation seen. HENT: External examination and palpation of the ears and nose normal. Lips, teeth, and gums normal. Oropharynx and tongue normal. No lesions or exudate. NECK: No mass or asymmetry. RESPIRATORY: Normal respiratory effort. Clear to auscultation and percussion. CARDIOVASCULAR: Heart RRR without gallop, murmur, or rub. No bruits across chest or neck. EXTREMITIES: Normal and equal pulses in all 4 extremities. No edema. ABDOMEN: BS normal. No bruits, No tenderness, mass, or hepatosplenomegaly. NEUROLOGIC: Sensory exam normal. MUSCULOSKELETAL EXAMINATION: Soft tissue tender points: None Motor exam: Normal 5+/5+ muscle strength. Normal bulk and tone. Cervical spine: No visible abnormalities. Full ROM. No tenderness to palpation. Thoracic spine: No visible abnormalities. No tenderness to palpation. Lumbar spine: No visible abnormalities. Full ROM. No tenderness to palpation. Joint Exam 08/18/2024 Right Left MCP 1 Tender MCP 3 Tender Tender Knee Tender Tender Ankle Tender The following joints were examined and normal: Left Sternoclavicular, Right Sternoclavicular, Left Acromioclavicular, Right Acromioclavicular, Left Glenohumeral, Right Glenohumeral, Left Elbow, Right Elbow, Left Wrist, Right Wrist, Left MCP 1, Left MCP 2, Right MCP 2, Left MCP 4, Right MCP 4, Left MCP 5, Right MCP 5, Left IP (thumb), Right IP (thumb), Left PIP 2 (finger), Right PIP 2 (finger), Left PIP 3 (finger), Right PIP 3 (finger), Left PIP 4 (finger), Right PIP 4 (finger), Left PIP 5 (finger), Right PIP 5 (finger), Right Ankle, Left MTP 1, Right MTP 1, Left MTP 2, Right MTP 2, Left MTP 3, Right MTP 3, Left MTP 4, Right MTP 4, Left MTP 5, Right MTP 5 Joint Exam Data (across time) 08/18/2024 Joint Exam Total Tender 5 Total Swollen 0 Impression Diagnoses: (M25.50) Arthralgia, unspecified joint (primary encounter diagnosis) (N96) Recurrent loss (L65.9) Hair loss Plan Orders this visit: Office Visit on 08/18/24 DALE BY IFA WITH REFLEX C3 COMPLEMENT C4 COMPLEMENT C-REACTIVE PROTEIN CREATININE BLD SEDIMENTATION RATE, WESTERGREN URINALYSIS, WITH MICROSCOPIC PROTEIN / CREATININE RATIO CONSULT TO RHEUM/IMMUN DISEASE After full rheumatologic examination evaluation I do not have a specific rheumatologic diagnosis presently. There is a degree of suspicion for possible lupus with her hair loss, oral ulcers and joint stiffness, subtle tenderness on exam patient with a second-degree relative with her grandmother having lupus. She warrants further investigation serologically for potential lupus. I recommend we assess her DALE status with reflex keeping in mind with the thyroid antibodies may crossover and contribute to a false positive DALE test. She should have her urine checked for protein as well as a protein creatinine ratio. Check C3, C4, sed rate and CRP. I recommend we follow-up these results by virtual visit in 2 weeks. With respect to her lupus anticoagulant she should have a repeat evaluation of the lupus anticoagulant at least 12 weeks out from her initial assessment of June 27, 2024. This places her repeat testing around September 19, 2024. I have a low suspicion for the lupus anticoagulant particularly with a hexagonal phase screen/confirmation testing. Typically there is more concern with the anticardiolipin antibodies and beta-2 glycoprotein family. Nonetheless she will continue with the control until we can gather a more definitive answer going forward. Return in about 2 weeks (around 09/01/2024). I spent a total of 60 minutes on the date of the service which included preparing to see the patient, [id number] patient care, completing clinical documentation, obtaining and/or reviewing separately obtained history, performing a medically appropriate examination, counseling and educating the patient/family/caregiver, ordering medications, tests, or procedures, communicating with other HCPs (not separately reported), independently interpreting results (not separately reported), and communicating results to the patient/family/caregiver. Medical Decision Making: Problems: Moderate: New problem with uncertain prognosis Data: Unique test result(s) reviewed: 3+ Unique test(s) ordered: 3+ Risk: High: High risk from testing/treatment Medical Decision Making Level: 4 - Moderate Autumn Holt MD Rheumatology Date: August 18, 2024 Time: 1:11 PM documented in this encounter [facility] [place] 08-06-2024 Instructions Frank Lyon MD - 08/06/2024 10:14 AM EST Please repeat the thyroid function in 1 year, or sooner if any new symptoms documented in this encounter [facility] [place] 08-06-2024 Note HNO ID: [id number] Author: FRANK LYON MD Service: ? Author Type: Physician Type: Progress Notes Filed: 08/06/2024 10:26 Note Text: [facility] Initial Clinic Visit Note Virtual Visit (Audio/Visual)I have discussed the nature of this visit with the patient which will occur via [facility] (Phone, Virtual Visit) and he agrees to proceed with this interaction. I have communicated my name and active licensure. The patient's identity and physical location were verified at the time of this visit. Either the patient or their legal c s s representative has been informed of the risks and benefits of -- and alternatives to -- treatment through a remote evaluation and consents to proceed with the evaluation remotely. Consulted by: Suzi Franco DO Chief Complaint: elevated TPO antibodies HPI: This is a 34 year old female who presents for evaluation of elevated TPO antibodies She has 3 kids, underwent tubectomy, and then she had reversal of tubal ligation recently with attempts to getting In February 08, 2024 she had D and E at 22 weeks. She was again but ended in miscarriage. She would like to get before 38 years She has lupus antibody positive as well Reports symptoms of weight gain, cold sensitivity FH: cousin had to have thyroid removed, grand mother had lupus PAST MEDICAL HISTORY: PAST MEDICAL HISTORY Diagnosis Date Anemia Anxiety Asthma Depression Ectopic 2021 Fetus with trisomy 13, single gestation 02/08/2024 History of depression PCOS (polycystic ovarian syndrome) 2019 depression PAST SURGICAL HISTORY: PAST SURGICAL HISTORY Procedure Laterality Date DELIVERY ONLY , low transverse DELIVERY ONLY , low transverse DELIVERY ONLY , low transverse HSG LIG/TRNSXJ FLP TUBE ABDL/VAG APPR UNI/BI 2018 Tubal ligation MANUAL VACUUM ASPIRATION 06/02/2024 SALPINGECTOMY 09/07/2021 RIGHT SIDE - ectopic at [facility] TONSILLECTOMY AND ADENOIDECTOMY HX UNL LAP TUBAL ANASTOMOSIS Bilateral FAMILY HISTORY: FAMILY HISTORY Problem Relation Age of Onset Fibromyalgia Mother other (Endometrosis) Mother other (Rheumatoid Arthritis) Mother Anxiety disorder Mother Depression Mother No Known Problems Father no relationship Asthma Sister Depression Brother Asthma Brother Hypertension Brother Asthma Maternal Grandmother Heart Maternal Grandmother Systemic Lupus Erythematosus Maternal Grandmother Diabetes Maternal Grandmother No Known Problems Maternal Grandfather No Known Problems Daughter No Known Problems Son No Known Problems Son Anesthesia Problems No Family History SOCIAL HISTORY: Social History Tobacco Use Smoking status: Every Day Smokeless tobacco: Never Tobacco comments: Vape Vaping Use Vaping status: current everyday user Substances: Nicotine (OCCASIONAL) Substance Use Topics Alcohol use: Yes Comment: Socially Drug use: Never MEDICATIONS: Current Outpatient Medications Medication Sig L-Norgest and E Estradiol-E Estrad (SEASONIQUE) 0.15 mg-30 mcg (84)/10 mcg (7) Take 1 tablet by mouth once daily. ibuprofen (MOTRIN) 600 mg tablet Take 1 tablet by mouth every 6 hours as needed for pain or fever (specify temp.). ibuprofen (MOTRIN) 600 mg tablet Take 1 tablet by mouth every 6 hours as needed for pain. Take with food. ondansetron orally disintegrating (ZOFRAN ODT) 4 mg disintegrating tablet Take 1 tablet by mouth every 8 hours as needed for nausea/vomiting. (Patient not taking: Reported on 05/29/2024) Cholecalciferol, Vitamin D3, 50 mcg (2,000 unit) cap busPIRone (BUSPAR) 5 mg tablet Take 1 tablet by mouth three times a day. ferrous sulfate (IRON ORAL) Take by mouth. (Patient not taking: Reported on 05/29/2024) acetaminophen (TYLENOL EXTRA STRENGTH) 500 mg tablet Take 2 tablets by mouth every 8 hours as needed for pain. (Patient not taking: Reported on 05/29/2024) PNV/iron/omega3/folic acid/min (PRENAT [id number] ORAL) Take by mouth. sertraline HCl (ZOLOFT ORAL) Take 100 mg by mouth once daily. Pt is taking 1 and 1/2 tablets daily No current facility-administered medications for this visit. ALLERGIES: ALLERGIES Allergen Reactions Sulfa (Sulfonamide * Hives, Shortness of Breath REVIEW OF SYSTEMS: 10 point ROS was reviewed and negative unless indicated in the HPI PHYSICAL EXAM: LMP 09/10/2023 (Exact Date) There is no height or weight on file to calculate BMI. Deferred LABS: Latest Reference Range AND Units 03/23/23 12:17 06/27/24 09:55 TSH 0.270 - 4.200 mIU/L 1.350 1.330 THYROID PEROXIDASE ANTIBODY <5.6 IU/mL 18.6 (H) (H): Data is abnormally high ASSESSMENT : 34 year old female presenting for evaluation of positive TPO abs PLAN: 1. Thyroid antibody positive (R76.8) Thyroid antibody positive Has (more content not included)... [facility] 08-06-2024 History of Present illness Narrative [facility] Initial Clinic Visit Note Virtual Visit (Audio/Visual)I have discussed the nature of this visit with the patient which will occur via [facility] (Phone, Virtual Visit) and he agrees to proceed with this interaction. I have communicated my name and active licensure. The patient's identity and physical location were verified at the time of this visit. Either the patient or their legal c s s representative has been informed of the risks and benefits of -- and alternatives to -- treatment through a remote evaluation and consents to proceed with the evaluation remotely. Consulted by: Suzi Franco DO Chief Complaint: elevated TPO antibodies HPI: This is a 34 year old female who presents for evaluation of elevated TPO antibodies She has 3 kids, underwent tubectomy, and then she had reversal of tubal ligation recently with attempts to getting In February 08, 2024 she had D and E at 22 weeks. She was again but ended in miscarriage. She would like to get before 38 years She has lupus antibody positive as well Reports symptoms of weight gain, cold sensitivity FH: cousin had to have thyroid removed, grand mother had lupus PAST MEDICAL HISTORY: PAST MEDICAL HISTORY Diagnosis Date Anemia Anxiety Asthma Depression Ectopic 2021 Fetus with trisomy 13, single gestation 02/08/2024 History of depression PCOS (polycystic ovarian syndrome) 2020 depression PAST SURGICAL HISTORY: PAST SURGICAL HISTORY Procedure Laterality Date DELIVERY ONLY , low transverse DELIVERY ONLY , low transverse DELIVERY ONLY , low transverse HSG LIG/TRNSXJ FLP TUBE ABDL/VAG APPR UNI/BI 2018 Tubal ligation MANUAL VACUUM ASPIRATION 06/02/2024 SALPINGECTOMY 09/07/2021 RIGHT SIDE - ectopic at [facility] TONSILLECTOMY AND ADENOIDECTOMY HX UNL LAP TUBAL ANASTOMOSIS Bilateral FAMILY HISTORY: FAMILY HISTORY Problem Relation Age of Onset Fibromyalgia Mother other (Endometrosis) Mother other (Rheumatoid Arthritis) Mother Anxiety disorder Mother Depression Mother No Known Problems Father no relationship Asthma Sister Depression Brother Asthma Brother Hypertension Brother Asthma Maternal Grandmother Heart Maternal Grandmother Systemic Lupus Erythematosus Maternal Grandmother Diabetes Maternal Grandmother No Known Problems Maternal Grandfather No Known Problems Daughter No Known Problems Son No Known Problems Son Anesthesia Problems No Family History SOCIAL HISTORY: Social History Tobacco Use Smoking status: Every Day Smokeless tobacco: Never Tobacco comments: Vape Vaping Use Vaping status: current everyday user Substances: Nicotine (OCCASIONAL) Substance Use Topics Alcohol use: Yes Comment: Socially Drug use: Never MEDICATIONS: Current Outpatient Medications Medication Sig L-Norgest and E Estradiol-E Estrad (SEASONIQUE) 0.15 mg-30 mcg (84)/10 mcg (7) Take 1 tablet by mouth once daily. ibuprofen (MOTRIN) 600 mg tablet Take 1 tablet by mouth every 6 hours as needed for pain or fever (specify temp.). ibuprofen (MOTRIN) 600 mg tablet Take 1 tablet by mouth every 6 hours as needed for pain. Take with food. ondansetron orally disintegrating (ZOFRAN ODT) 4 mg disintegrating tablet Take 1 tablet by mouth every 8 hours as needed for nausea/vomiting. (Patient not taking: Reported on 05/29/2024) Cholecalciferol, Vitamin D3, 50 mcg (2,000 unit) cap busPIRone (BUSPAR) 5 mg tablet Take 1 tablet by mouth three times a day. ferrous sulfate (IRON ORAL) Take by mouth. (Patient not taking: Reported on 05/29/2024) acetaminophen (TYLENOL EXTRA STRENGTH) 500 mg tablet Take 2 tablets by mouth every 8 hours as needed for pain. (Patient not taking: Reported on 05/29/2024) PNV/iron/omega3/folic acid/min (PRENAT [id number] ORAL) Take by mouth. sertraline HCl (ZOLOFT ORAL) Take 100 mg by mouth once daily. Pt is taking 1 and 1/2 tablets daily No current facility-administered medications for this visit. ALLERGIES: ALLERGIES Allergen Reactions Sulfa (Sulfonamide * Hives, Shortness of Breath REVIEW OF SYSTEMS: 10 point ROS was reviewed and negative unless indicated in the HPI PHYSICAL EXAM: LMP 09/10/2023 (Exact Date) There is no height or weight on file to calculate BMI. Deferred LABS: Latest Reference Range & Units 03/23/23 12:17 06/27/24 09:55 TSH 0.270 - 4.200 mIU/L 1.350 1.330 THYROID PEROXIDASE ANTIBODY <5.6 IU/mL 18.6 (H) (H): Data is abnormally high ASSESSMENT : 34 year old female presenting for evaluation of positive TPO abs PLAN: 1. 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 Pathophysiology and natural course of the condition discussed. The thyroid helps set the rate of metabolism, which is the rate at which the body uses energy. Jose's, may in the long run, stop the gland from making enough thyroid hormones for the body to work the way it should. It is the most common thyroid disease in the [place] I also reviewed that we will not be able to predict when the thyroid function will become abnormal and hence suggested checking thyroid labs annually, or sooner if symptoms of hypothyroidism occur reviewed symptoms with her- she already has weight gain, fatigue and cold sensitivity when labs are normal, hence advised to keep an eye for significant worsening. Some patients have major swelling of the thyroid gland in the front of the neck, called goiter. Reviewed that Jose's can be a risk factor for recurrent pregnancies, and discussed indications for starting medications in patients with this condition who are trying to get to improve outcomes. Her TSH is at goal, and no indication for hormone supplementation at this time. Reviewed possible need for supplementation based on labs during She is referred to Rheumatology for evaluating lupus antibodies, needs to be scheduled, advised calling scheduling to assist with that Advised following with PCP for labs, and if abnormal results, she can return to us Labs ordered for a year from now as per her preference, as her PCP is not from [facility] FOLLOW UP: if thyroid labs abnormal, or when I will communicate by sharing a copy of today's office note to the primary care physician Maryjo Anguiano CNP, DONOR SUPPORT TECHNICIAN and consulting physician Suzi Franco, DO Medical Decision Making: Problems: Moderate: New problem with uncertain prognosis Data: Unique test result(s) reviewed: 2 Unique test(s) ordered: 1 Independent interpretation of test from other physician/QHCP Risk: Moderate: Moderate risk from testing/treatment Medical Decision Making Level: 4 - Moderate Frank Lyon MD Endocrinology Associate Staff [facility] Endocrinology and Metabolism [place] [phone] documented in this encounter [facility] [place] 07-01-2024 Note Addended by: BAYRON RAMIREZ DO on: 07/01/2024 03:26 PM Modules accepted: Orders [facility] [place] 07-01-2024 Miscellaneous Notes Addended by: BAYRON RAMIREZ DO on: 07/01/2024 03:26 PM Modules accepted: Orders Pt asking about her Lupus Anticoag lab that was flagged abnormal. Thank you, Veronica Cotton LPN documented in this encounter [facility] [place] 07-01-2024 Telephone encounter Note Pt asking about her Lupus Anticoag lab that was flagged abnormal. 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 The patient's identity and physical location were verified at the time of this visit. Either the patient or their legal c s s representative has been informed of the risks and benefits of -- and alternatives to -- treatment through a remote evaluation and consents to proceed with the evaluation remotely. Chief Complaint: No chief complaint on file. Subjective HPI: The patient is a 34 year old at 9w0d Today, she reports some occasional spotting, attributes it to the control. Having some intermittent cramping, left side, mild. Emotionally up and down, has good social support. Follows with a counselor and saw a psychiatrists. Getting with this weekend. Started the OCP. PATHOLOGY Component FINAL DIAGNOSIS A. Products conception, removal: - Hypersecretory endometrium and decidualized stroma, see comment. Diagnosis Comment The specimen is entirely submitted for microscopic examination. There is no evidence for chorionic villi, implantation site or tissue. The findings are compatible but not diagnostic for intrauterine . Clinical correlation is essential. Histories updated. Objective LMP 04/17/2024 (Exact Date) Physical Exam Constitutional: Appearance: Normal appearance. HENT: Head: Normocephalic. Neurological: Mental Status: She is alert and oriented to person, place, and time. Psychiatric: Mood and Affect: Mood normal. Behavior: Behavior normal. Labs: Lab Results Component Value Date HB 12.2 02/06/2024 PLT 252 02/06/2024 AST 17 06/02/2024 ALT 13 06/02/2024 CREAT 0.78 06/02/2024 RH Positive 02/06/2024 ABORHD O POSITIVE 06/15/2021 HCGQT 4.7 06/13/2024 HCGQT 357.0 (H) 06/03/2024 HCGQT 808.9 (H) 06/02/2024 Assessment / Plan 34 year old with recurrent loss. This was most likely a miscarriage, with both her HCG trend (>50% decrease after uterine aspiration) We reviewed that recurrent loss is defined as having 2 or more miscarriages, and that a thorough exam and additional testing is recommended after 3 repeated miscarriages. We reviewed that the most common cause of miscarriage is an abnormal number of chromosomes or problems with the DNA from the egg or the sperm. We also reviewed that additional causes for recurrent loss include congenital problems involving the way the uterus developed, a history of uterine surgery that increases the risk of intrauterine adhesions/scar, and problems with body's process for forming blood clots. We reviewed that the majority of people with unexplained recurrent loss have a successful next . -Pt previously established with Dr. Rodriguez for tubal reversal (2020), plans to follow up with [facility] -APLS lab evaluation -TSH and TPO -Patient and partner karyotype, Pt and partner had normal extended carrier screening (normal), but not karyotypes -SIS - normal 2022 Follow-up: - Partner to request peripheral chromosome analysis from their PCP - If any results are abnormal, pt aware she will need to follow up with [facility] or her usual OBGYN for continuity of care Medical Decision Making: Problems: Moderate: 1+ chronic illnesses with change Data: Unique test(s) ordered: 3+ Medical Decision Making Level: 4 - Moderate Signature: Suzi Franco DO documented in this encounter [facility] [place] 06-19-2024 Note HNO ID: [id number] Author: SUZI FRANCO DO Service: ? Author Type: Physician Type: Progress Notes Filed: 06/19/2024 12:41 Note Text: Inside Sales Advisor Progress Note - [facility] ([facility]) I have communicated my name and active licensure. The patient's identity and physical location were verified at the time of this visit. Either the patient or their legal c s s representative has been informed of the risks and benefits of -- and alternatives to -- treatment through a remote evaluation and consents to proceed with the evaluation remotely. Chief Complaint: No chief complaint on file. Subjective HPI: The patient is a 34 year old at 9w0d Today, she reports some occasional spotting, attributes it to the control. Having some intermittent cramping, left side, mild. Emotionally up and down, has good social support. Follows with a counselor and saw a psychiatrists. Getting with this weekend. Started the OCP. PATHOLOGY Component FINAL DIAGNOSIS A. Products conception, removal: - Hypersecretory endometrium and decidualized stroma, see comment. Diagnosis Comment The specimen is entirely submitted for microscopic examination. There is no evidence for chorionic villi, implantation site or tissue. The findings are compatible but not diagnostic for intrauterine . Clinical correlation is essential. Histories updated. Objective LMP 04/17/2024 (Exact Date) Physical Exam Constitutional: Appearance: Normal appearance. HENT: Head: Normocephalic. Neurological: Mental Status: She is alert and oriented to person, place, and time. Psychiatric: Mood and Affect: Mood normal. Behavior: Behavior normal. Labs: Lab Results Component Value Date HB 12.2 02/06/2024 PLT 252 02/06/2024 AST 17 06/02/2024 ALT 13 06/02/2024 CREAT 0.78 06/02/2024 RH Positive 02/06/2024 ABORHD O POSITIVE 06/15/2021 HCGQT 4.7 06/13/2024 HCGQT 357.0 (H) 06/03/2024 HCGQT 808.9 (H) 06/02/2024 Assessment / Plan 34 year old with recurrent loss. This was most likely a miscarriage, with both her HCG trend (>50% decrease after uterine aspiration) We reviewed that recurrent loss is defined as having 2 or more miscarriages, and that a thorough exam and additional testing is recommended after 3 repeated miscarriages. We reviewed that the most common cause of miscarriage is an abnormal number of chromosomes or problems with the DNA from the egg or the sperm. We also reviewed that additional causes for recurrent loss include congenital problems involving the way the uterus developed, a history of uterine surgery that increases the risk of intrauterine adhesions/scar, and problems with body's process for forming blood clots. We reviewed that the majority of people with unexplained recurrent loss have a successful next . -Pt previously established with Dr. Rodriguez for tubal reversal (2020), plans to follow up with [facility] -APLS lab evaluation -TSH and TPO -Patient and partner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 resident. Signature: Suzi Franco DO Date: 05/30/2024 Time: 10:26 AM Medical Decision Making: Problems: Moderate: New problem with uncertain prognosis Data: Unique test result(s) reviewed: 3+ Unique test(s) ordered: 1 Medical Decision Making Level: 4 - Moderate Signature: Suzi Franco DO documented in this encounter [facility] [place] 05-29-2024 Note HNO ID: [id number] Author: SUZI FRANCO DO Service: ? Author Type: Physician Type: Progress Notes Filed: 05/30/2024 10:27 Note Text: Inside Sales Advisor Progress Note - Early Assessment Clinic (PEAC) Chief Complaint: Patient presents with: POCUS Subjective HPI: The patient is a 34 year old at 6w1d EGA by abnormal LMP with of unknown location Today, she is doing okay, just very nervous given previous outcomes Nausea comes and goes, was the initial reason for taking test, some vomiting very early in morning, not too bothersome to her No abdominal pain Feeling very thirsty, very dehydrated despite chugging water and liquid Ivs, hard stick for blood No vaginal bleeding or changes in discharge Ocassional hot flashes, feeling warmer than usual Wasn't actively trying for this time but not preventing Previously needed fertility drugs to conceive, not on them this time, hx PCOS Taking w extra iron, not currently taking iron pills for hx of anemia Feeling like a rollercoaster emotionally, nervous, desires NIPT jacklyn bc very worried about genetics this 3 kids at home Desires to establish with new OBGYN this Asthma- haven't had attack since high school, worse when get sick, hospitalized as child Anxiety/depression- doing pretty well, does counseling online, on zoloft and buspar First preg emergency 41 weeks for high BP, no HTN outside PSH: ectopic, , tubal reversal 04/17 as first day of last period, LMP is certain LMP was weird relative to others in terms of amount bleeding, pretty regular within 2-3 days Histories updated. Objective BP 120/75 Pulse 85 Ht 167.6 cm (5' 6) Wt 97.3 kg (214 lb 8.1 oz) LMP 04/17/2024 (Exact Date) BMI 34.62 kg/m? Physical Exam Constitutional: General: She is not in acute distress. Appearance: Normal appearance. HENT: Head: Normocephalic and atraumatic. Eyes: Extraocular Movements: Extraocular movements intact. Pupils: Pupils are equal, round, and reactive to light. Pulmonary: Effort: Pulmonary effort is normal. Genitourinary: General: Normal vulva. Neurological: General: No focal deficit present. Mental Status: She is alert and oriented to person, place, and time. Mental status is at baseline. Psychiatric: Mood and Affect: Mood normal. Behavior: Behavior normal. Thought Content: Thought content normal. Labs: Lab Results Component Value Date HB 12.2 02/06/2024 PLT 252 02/06/2024 RH Positive 02/06/2024 ABORHD O POSITIVE 06/15/2021 HCGQT 1,652.0 (H) 05/29/2024 HCGQT 1,479.0 (H) 05/27/2024 HCGQT 553.5 (H) 05/24/2024 hC:10- 145, 05/22: 255, 05/24: 554, 05/27: 1479 Imaging: POC US performed today. See imaging tab for details. Assessment / Plan 34 year old at 6w1d by LMP with PUL. We discussed at length the current placeholder diagnosis of of unknown location and contextualized this within expectations for normal versus abnormal hCG trends. We reviewed the current clinical priority is determining location due to the high level of risk associated with ectopic . If an intrauterine location is confirmed, the next step is to determine viability. Expected HCG increase for viable intrauterine : - 49% for an initial hCG level of less than 1,500 mIU/mL - 40% for an initial hCG level of 1,500-3,000 mIU/mL - 33% for an initial hCG level greater than 3,000 mIU/mL A increase less than the expected amount predicts a failing intrauterine or ectopic with 99% certainty. More than one abnormal trend increases the diagnostic certainty further. Expected HCG trend for spontaneous resolution of : The 95% predictive bound for the minimum hCG decline in women with resolving of unknown location ranges from 35-50% at 2 days and 66-87% at 7 days for starting hCG values of 250-5,000. Slower decreases are more common in women with lower initial HCGs. - Reviewed structure of the Early Assessment Clinic - Empathized with the emotional challenges inherent in this period of uncertainty - Signs and symptoms of ectopic were reviewed and patient instructed on how to contact the care team if symptoms develop Follow-up: - Formal pelvic TVUS to evaluate for PUL. Scheduled for tomorrow. - Repeat quant HCG - Follow up as needed or as indicated by imaging and lab results Caty Campoverde MD Attending Note I evaluated the patient and personally participated in the sanabria components. I agree with the resident's findings and plan as documented and have discussed the case and management of the patient's care with the resident. Signature: Suzi Franco DO Date: 05/30/2024 Time: 10:26 AM Medical Decision Making: Problems: Moderate: New problem with uncertain prognosis Data: (more content not included)... [facility] 05-28-2024 Telephone encounter Note Early Assessment Clinic RN Coordination Date of Referral: 05/19/2024 Reason for Referral: Previous PEAC pt, hx D&E 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 Previous PEAC pt. 05/19/2024 Phone Called pt, verified name and . Introduced self and PEAC. LMP 04/17. Pt denies VB. Reports a one time episode today of right sided sharp pain that lasted 10-15 minutes. Pt has a hx of ectopic and tubal reversal. Serial HCGs ordered. Scheduled pt for early viability POCUS on 05/29 @ 9:45am with Dr. Franco. Reviewed emergent ectopic and SAB precautions. KP 05/27/2024 Phone Called pt, name/ verified.Reports that still has intermittent pain, thinks may be due to dehydration or previous c/s scar. Will have repeat HCG drawn today after work. Aware of precautions. Will f/u with HCG result JS 05/28/2024 Phone Called pt, reviewed result note. Denies any new or worsening symptoms at this time. Will f/u at appt tomorrow JS [facility] [place] 05-28-2024 Miscellaneous Notes Early Assessment Clinic RN Coordination Date of Referral: 05/19/2024 Reason for Referral: Previous PEAC pt, hx D&E 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 Previous PEAC pt. 05/19/2024 Phone Called pt, verified name and . Introduced self and PEAC. LMP 04/17. Pt denies VB. Reports a one time episode today of right sided sharp pain that lasted 10-15 minutes. Pt has a hx of ectopic and tubal reversal. Serial HCGs ordered. Scheduled pt for early viability POCUS on 05/29 @ 9:45am with Dr. Franco. Reviewed emergent ectopic and SAB precautions. 05/27/2024 Phone Called pt, name/ verified.Reports that still has intermittent pain, thinks may be due to dehydration or previous c/s scar. Will have repeat HCG drawn today after work. Aware of precautions. Will f/u with HCG result JS 05/28/2024 Phone Called pt, reviewed result note. Denies any new or worsening symptoms at this time. Will f/u at appt tomorrow JS documented in this encounter [facility] [place] 05-27-2024 Telephone encounter Note Early Assessment Clinic RN Coordination Date of Referral: 05/19/2024 Reason for Referral: Previous PEAC pt, hx D&E 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 Previous PEAC pt. 05/19/2024 Phone Called pt, verified name and . Introduced self and PEAC. LMP 04/17. Pt denies VB. Reports a one time episode today of right sided sharp pain that lasted 10-15 minutes. Pt has a hx of ectopic and tubal reversal. Serial HCGs ordered. Scheduled pt for early viability POCUS on 05/29 @ 9:45am with Dr. Franco. Reviewed emergent ectopic and SAB precautions. 05/27/2024 Phone Called pt, name/ verified.Reports that still has intermittent pain, thinks may be due to dehydration or previous c/s scar. Will have repeat HCG drawn today after work. Aware of precautions. Will f/u with HCG result JS [facility] [place] 05-27-2024 Miscellaneous Notes Early Assessment Clinic RN Coordination Date of Referral: 05/19/2024 Reason for Referral: Previous PEAC pt, hx D&E 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 Previous PEAC pt. 05/19/2024 Phone Called pt, verified name and . Introduced self and PEAC. LMP 04/17. Pt denies VB. Reports a one time episode today of right sided sharp pain that lasted 10-15 minutes. Pt has a hx of ectopic and tubal reversal. Serial HCGs ordered. Scheduled pt for early viability POCUS on 05/29 @ 9:45am with Dr. Franco. Reviewed emergent ectopic and SAB precautions. COURTNEY 05/27/2024 Phone Called pt, name/ verified.Reports that still has intermittent pain, thinks may be due to dehydration or previous c/s scar. Will have repeat HCG drawn today after work. Aware of precautions. Will f/u with HCG result JS documented in this encounter [facility] [place] 05-19-2024 Telephone encounter Note Early Assessment Clinic RN Coordination Date of Referral: 05/19/2024 Reason for Referral: Previous PEAC pt, hx D&E 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 Previous PEAC pt. 05/19/2024 Phone Called pt, verified name and . Introduced self and PEAC. LMP 04/17. Pt denies VB. Reports a one time episode today of right sided sharp pain that lasted 10-15 minutes. Pt has a hx of ectopic and tubal reversal. Serial HCGs ordered. Scheduled pt for early viability POCUS on 05/29 @ 9:45am with Dr. Franco. Reviewed emergent ectopic and SAB precautions. KP [facility] [place] 05-19-2024 Miscellaneous Notes Early Assessment Clinic RN Coordination Date of Referral: 05/19/2024 Reason for Referral: Previous PEAC pt, hx D&E Primary SENIOR ASSET MANAGER Provider: Documentation of Patient Contact: Date: Contact Type: Details: Sign: 05/19/2024 Referral Review +HPT Rh POS LMP 04/17/2024 - Intro,schedule POCUS for 6/7 [facility]: +UPT US: none Ref by: Self referral. Previous PEAC pt. 05/19/2024 Phone Called pt, verified name and . Introduced self and PEAC. LMP 04/17. Pt denies VB. Reports a one time episode today of right sided sharp pain that lasted 10-15 minutes. Pt has a hx of ectopic and tubal reversal. Serial HCGs ordered. Scheduled pt for early viability POCUS on 05/29 @ 9:45am with Dr. Franco. Reviewed emergent ectopic and SAB precautions. KP documented in this encounter [facility] [place] 04-09-2024 Telephone encounter Note Called patient to schedule preconception consult and got vm. LM with number provided to return call. Melody Hassan, EVIE [facility] [place] 04-09-2024 Miscellaneous Notes Called patient to schedule preconception consult and got vm. LM with number provided to return call. Melody Hassan, RN documented in this encounter [facility] [place] 02-24-2024 Instructions Bayron Ramirez DO - 02/24/2024 7:49 AM EDT Early Assessment Clinic ([facility]) You received care from Dr. Bayron Ramirez DO in the [facility] ([facility]). [facility] is a specialized program of the [facility] dedicated to caring for patients who are experiencing -related complications or concerns. If you have concerns or questions about your health, please call us: Sunday through Sunday, 8 am to 4:30 pm, please call the [facility] nurse coordinators at [phone] (Kristi), ( Nydia) and [phone] ( Fern). You may leave a voicemail. Voice mails are not checked on evenings and weekends. Evenings and weekends, please call the on-call doctor: [phone]. For emergencies, call 911. Thank you for choosing [facility] for your health care. documented in this encounter [facility] 02-22-2024 Telephone encounter Note Pt currently on VV with Dr Domingo Ortega, RN [facility] 02-22-2024 Miscellaneous Notes Pt currently on VV with Dr Domingo Ortega, RN documented in this encounter [facility] 02-22-2024 History of Present illness Narrative VIRTUAL VISIT PROGRESS NOTE This is a virtual visit using [employer] Zoom Video Visit. It required patient-provider interaction for the medical decision making as documented below. I have communicated my name and active licensure. The patient's identity and physical location were verified at the time of this visit. Either the patient or their legal c s s representative has been informed of the risks and benefits of -- and alternatives to -- treatment through a remote evaluation and consents to proceed with the evaluation remotely. Inside Sales Advisor Progress Note - [facility] Assessment [facility] ([facility]) Chief Complaint: No chief complaint on file. Subjective HPI: The patient is a 33 year old who presents for post op from recent D&E for complicated by trisomy 13 Today, Lucie reports that bleeding and pain were appropriate and as expected after D&E. She denies fevers, chills, abnormal discharge. Emotionally she reports that they have good days and bad days but overall feeling fairly well supported. Considering trying again in a few months. She has a history of BTL and has undergone a tubal reversal. She did require Letrozole for 9 months to conceive this . Histories updated. Objective LMP 09/10/2023 (Exact Date) REVIEW OF SYSTEMS: All other ROS: negative As noted in HPI PHYSICAL EXAMINATION: VIDEO EXAM: (if completed, performed via video enabled technology) No exam performed Assessment / Plan 33 year old s/p D&E for Trisomy 13 1. Post-operative state -Meeting all post operative milestones -Reviewed pathology -Reviewed that she can attempt to conceive when she feels both emotionally and physically ready to do so -we reviewed possibility for menstrual irregularities for 1-3 cycles after D&E. We also reviewed that most menstrual cycles will return within 4 to 8 weeks 2. Maternal care for (suspected) 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, trisomy 13, fetus 1 -Desires a pre-conception consultation with MFM prior to conception. - CONSULT TO MATERNAL MEDI; Future 3. PCOS (polycystic ovarian syndrome) -Previously met with Dr. Rodriguez but reports its been about 2 years since she met with [facility]. I recommended re-establishing with [facility] as she required Letrozole and it took several cycles to conceive this - CONSULT TO INFERTILITY CLINIC; Future Follow-up: - As needed I spent a total of 25 minutes on the date of the service which included preparing to see the patient, [id number] patient care, completing clinical documentation, counseling and educating the patient/family/caregiver, and ordering medications, tests, or procedures. Signature: Bayron Ramirez DO documented in this encounter [facility] 02-07-2024 Note HNO ID: [id number] Author: BAYRON RAMIREZ, DO Service: ? Author Type: Physician Type: Progress Notes Filed: 02/07/2024 16:50 Note Text: Family Planning Dilator Insertion Visit Subjective: Lucie Dent is a 33 year old at general anesthesia gestation who presents for dilator insertion prior to planned DANDE tomorrow. She was previously seen for complete consult on 02/06/2024 and her 24 hour waiting period ended today at 1158. The patient states that she remains sure of her decision to terminate the . Took azithromycin and ibuprofen 30 minutes before appointment. . PAST MEDICAL HISTORY Diagnosis Date Anemia Anxiety Asthma Depression Ectopic 2021 History of depression PCOS (polycystic ovarian syndrome) 2019 depression PAST SURGICAL HISTORY Procedure Laterality Date DELIVERY ONLY , low transverse DELIVERY ONLY , low transverse DELIVERY ONLY , low transverse HSG LIG/TRNSXJ FLP TUBE ABDL/VAG APPR UNI/BI 2018 Tubal ligation SALPINGECTOMY 09/07/2021 RIGHT SIDE - ectopic at [facility] TONSILLECTOMY AND ADENOIDECTOMY HX UNL LAP TUBAL ANASTOMOSIS Bilateral Current Outpatient Medications Medication Sig Dispense Refill ibuprofen (MOTRIN) 600 mg tablet Take 1 tablet by mouth every 6 hours as needed for pain. Take with food. 30 tablet 0 oxyCODONE IR (ROXICODONE) 5 mg immediate release tablet Take 1-2 tablets by mouth every 6 hours as needed for pain for up to 2 days. 8 tablet 0 ondansetron orally disintegrating (ZOFRAN ODT) 4 mg disintegrating tablet Take 1 tablet by mouth every 8 hours as needed for nausea/vomiting. 20 tablet 0 Cholecalciferol, Vitamin D3, 50 mcg (2,000 unit) cap busPIRone (BUSPAR) 5 mg tablet Take 1 tablet by mouth three times a day. 90 tablet 1 ferrous sulfate (IRON ORAL) Take by mouth. acetaminophen (TYLENOL EXTRA STRENGTH) 500 mg tablet Take 2 tablets by mouth every 8 hours as needed for pain. 48 tablet 0 PNV/iron/omega3/folic acid/min (PRENAT [id number] ORAL) Take by mouth. sertraline HCl (ZOLOFT ORAL) Take 100 mg by mouth once daily. Pt is taking 1 and 1/2 tablets daily azithromycin (ZITHROMAX) 500 mg tablet Take 1 tablet by mouth once daily. (Patient not taking: Reported on 02/07/2024) 1 tablet 0 doxylamine succinate (UNISOM, DOXYLAMINE, ORAL) Take by mouth. (Patient not taking: Reported on 02/06/2024) aspirin, enteric coated (ASPIRIN, ENTERIC COATED) 81 mg EC tablet Take 1 tablet by mouth once daily. (Patient not taking: Reported on 02/06/2024) 30 tablet 0 No current facility-administered medications for this visit. ALLERGIES Allergen Reactions Sulfa (Sulfonamide * Hives, Shortness of Breath FAMILY HISTORY Problem Relation Age of Onset Fibromyalgia Mother other (Endometrosis) Mother other (Rheumatoid Arthritis) Mother Anxiety disorder Mother Depression Mother No Known Problems Father no relationship Asthma Sister Depression Brother Asthma Brother Hypertension Brother Asthma Maternal Grandmother Heart Maternal Grandmother Systemic Lupus Erythematosus Maternal Grandmother Diabetes Maternal Grandmother No Known Problems Maternal Grandfather No Known Problems Daughter No Known Problems Son No Known Problems Son Anesthesia Problems No Family History ROS: Denies bleeding, leaking, cramping, contractions Objective: BP 113/77 Pulse 78 Wt 96.6 kg (213 lb) LMP 09/10/2023 (Exact Date) BMI 34.38 kg/m? Physical Exam General: Well appearing female in NAD Psych: Appropriate, affect congruent with mood Cardio: normotensive Pulmonary: Normal respiratory effort Pelvic: External genitalia grossly normal in appearance without lesions. Urethra, Bartholin glands, and [place] glands normal in location and appearance. Vaginal mucosa with well estrogenized rugae without lesion. Cervix grossly normal in appearance without lesion. Physiologic discharge, nonmalodorous. Bimanual exam with small, mobile uterus with regular contour. Adnexa nonpalpable bilaterally, non-tender. No CMT. Assessment and Plan: Lucie Dent is a 33 year old female at general anesthesia gestation with plans for DANDE tomorrow, s/p uncomplicated dilator insertion. 1. Known anomaly, antepartum, single or unspecified fetus 2. Fetus with trisomy 13, single gestation 3. History of delivery -S/P osmotic dilator placement. - Routine precautions given including bleeding, infection, ROM, labor, pain - Rx given for narcotic pain medications along with instructions on use - Has my number for questions/concerns - Case scheduled at [facility] tomorrow, aware of time and location Bayron Ramirez DO Medical Decision Making: Problems: Low: Acute, uncomplicated illness or injury Risk: Moderate: Drug management and Moderate risk from testing/treatment Medical Decision (more content not included)... [facility] 02-07-2024 Note HNO ID: [id number] Author: BAYRON RAMIREZ DO Service: ? Author Type: Physician Type: Procedures Filed: 02/07/2024 16:50 Note Text: Lucie Dent is a 33 year old at 21w3d who presents today for cervical dilator insertion prior to dilation and evacuation. Estimated Date of Delivery: 06/16/24 UNIVERSAL PROTOCOL / SAFETY CHECKLIST Procedure to be performed: cervical dilator insertion Sign in Communication: Completed Time Out: Team Confirms the Correct Patient, Correct Procedure, Correct Site and Site Marking, Correct Position (if applicable), Prep and Dry Time (if applicable). Affirmation of Time Out: YES Sign Out Discussion: Completed Bayron Ramirez DO PROCEDURE: BIMANUAL EXAM: cervix closed, anteverted, uterus enlarged to 21 weeks EXTERNAL GENITALIA: Normal in appearance without lesions VAGINA: Normal in appearance without lesions CERVIX: Speculum placed in vagina and excellent visualization of cervix achieved. Cervix and upper vagina cleansed with betadine. Paracervical block administered with 20 mL of 1% lidocaine without epinephrine. Anterior lip of cervix grasped with single tooth tenaculum. 8 dilators placed into cervix (3 dilipan and 2 Large and 3 small laminaria), 1 gauze placed in vagina. Procedure Summary: Patient tolerated procedure well. Bayron Ramirez DO [facility] 02-07-2024 History of Present illness Narrative Family Planning Dilator Insertion Visit Subjective: Lucie Dent is a 33 year old at general anesthesia gestation who presents for dilator insertion prior to planned D&E tomorrow. She was previously seen for complete consult on 02/06/2024 and her 24 hour waiting period ended today at 1158. The patient states that she remains sure of her decision to terminate the . Took azithromycin and ibuprofen 30 minutes before appointment. . PAST MEDICAL HISTORY Diagnosis Date Anemia Anxiety Asthma Depression Ectopic 2021 History of depression PCOS (polycystic ovarian syndrome) 2020 depression PAST SURGICAL HISTORY Procedure Laterality Date DELIVERY ONLY , low transverse DELIVERY ONLY , low transverse DELIVERY ONLY , low transverse HSG LIG/TRNSXJ FLP TUBE ABDL/VAG APPR UNI/BI 2018 Tubal ligation SALPINGECTOMY 09/07/2021 RIGHT SIDE - ectopic at [facility] TONSILLECTOMY AND ADENOIDECTOMY HX UNL LAP TUBAL ANASTOMOSIS Bilateral Current Outpatient Medications Medication Sig Dispense Refill ibuprofen (MOTRIN) 600 mg tablet Take 1 tablet by mouth every 6 hours as needed for pain. Take with food. 30 tablet 0 oxyCODONE IR (ROXICODONE) 5 mg immediate release tablet Take 1-2 tablets by mouth every 6 hours as needed for pain for up to 2 days. 8 tablet 0 ondansetron orally disintegrating (ZOFRAN ODT) 4 mg disintegrating tablet Take 1 tablet by mouth every 8 hours as needed for nausea/vomiting. 20 tablet 0 Cholecalciferol, Vitamin D3, 50 mcg (2,000 unit) cap busPIRone (BUSPAR) 5 mg tablet Take 1 tablet by mouth three times a day. 90 tablet 1 ferrous sulfate (IRON ORAL) Take by mouth. acetaminophen (TYLENOL EXTRA STRENGTH) 500 mg tablet Take 2 tablets by mouth every 8 hours as needed for pain. 48 tablet 0 PNV/iron/omega3/folic acid/min (PRENAT [id number] ORAL) Take by mouth. sertraline HCl (ZOLOFT ORAL) Take 100 mg by mouth once daily. Pt is taking 1 and 1/2 tablets daily azithromycin (ZITHROMAX) 500 mg tablet Take 1 tablet by mouth once daily. (Patient not taking: Reported on 02/07/2024) 1 tablet 0 doxylamine succinate (UNISOM, DOXYLAMINE, ORAL) Take by mouth. (Patient not taking: Reported on 02/06/2024) aspirin, enteric coated (ASPIRIN, ENTERIC COATED) 81 mg EC tablet Take 1 tablet by mouth once daily. (Patient not taking: Reported on 02/06/2024) 30 tablet 0 No current facility-administered medications for this visit. ALLERGIES Allergen Reactions Sulfa (Sulfonamide * Hives, Shortness of Breath FAMILY HISTORY Problem Relation Age of Onset Fibromyalgia Mother other (Endometrosis) Mother other (Rheumatoid Arthritis) Mother Anxiety disorder Mother Depression Mother No Known Problems Father no relationship Asthma Sister Depression Brother Asthma Brother Hypertension Brother Asthma Maternal Grandmother Heart Maternal Grandmother Systemic Lupus Erythematosus Maternal Grandmother Diabetes Maternal Grandmother No Known Problems Maternal Grandfather No Known Problems Daughter No Known Problems Son No Known Problems Son Anesthesia Problems No Family History ROS: Denies bleeding, leaking, cramping, contractions Objective: BP 113/77 Pulse 78 Wt 96.6 kg (213 lb) LMP 09/10/2023 (Exact Date) BMI 34.38 kg/m Physical Exam General: Well appearing female in NAD Psych: Appropriate, affect congruent with mood Cardio: normotensive Pulmonary: Normal respiratory effort Pelvic: External genitalia grossly normal in appearance without lesions. Urethra, Bartholin glands, and [place] glands normal in location and appearance. Vaginal mucosa with well estrogenized rugae without lesion. Cervix grossly normal in appearance without lesion. Physiologic discharge, nonmalodorous. Bimanual exam with small, mobile uterus with regular contour. Adnexa nonpalpable bilaterally, non-tender. No CMT. Assessment and Plan: Lucie Dent is a 33 year old female at general anesthesia gestation with plans for D&E tomorrow, s/p uncomplicated dilator insertion. 1. Known anomaly, antepartum, single or unspecified fetus 2. Fetus with trisomy 13, single gestation 3. History of delivery -S/P osmotic dilator placement. - Routine precautions given including bleeding, infection, ROM, labor, pain - Rx given for narcotic pain medications along with instructions on use - Has my number for questions/concerns - Case scheduled at L&D tomorrow, aware of time and location Bayron Ramirez DO Medical Decision Making: Problems: Low: Acute, uncomplicated illness or injury Risk: Moderate: Drug management and Moderate risk from testing/treatment Medical Decision Making Level: 3 - Low documented in this encounter [facility] 02-07-2024 Procedure note Lucie Dent is a 33 year old at 21w3d who presents today for cervical dilator insertion prior to dilation and evacuation. Estimated Date of Delivery: 06/16/24 UNIVERSAL PROTOCOL / SAFETY CHECKLIST Procedure to be performed: cervical dilator insertion Sign in Communication: Completed Time Out: Team Confirms the Correct Patient, Correct Procedure, Correct Site and Site Marking, Correct Position (if applicable), Prep and Dry Time (if applicable). Affirmation of Time Out: YES Sign Out Discussion: Completed Bayron Ramirez DO PROCEDURE: BIMANUAL EXAM: cervix closed, anteverted, uterus enlarged to 21 weeks EXTERNAL GENITALIA: Normal in appearance without lesions VAGINA: Normal in appearance without lesions CERVIX: Speculum placed in vagina and excellent visualization of cervix achieved. Cervix and upper vagina cleansed with betadine. Paracervical block administered with 20 mL of 1% lidocaine without epinephrine. Anterior lip of cervix grasped with single tooth tenaculum. 8 dilators placed into cervix (3 dilipan and 2 Large and 3 small laminaria), 1 gauze placed in vagina. Procedure Summary: Patient tolerated procedure well. Bayron Ramirez DO [facility] 02-07-2024 Instructions Bayron Ramirez DO - 02/07/2024 2:43 PM EDT Family Planning Instructions/Expectations: You had laminaria placed in order to gradually open your cervix to allow for the procedure to be completed safely. Afterwards and overnight, you may experience cramping, pressure or pain as a result of the laminaria swelling overnight. This is normal. You may take: - Ibuprofen 600 mg every 6 hours (if you are taking regular over the counter ibuprofen, that is 3 tablets) - Tylenol 1000 mg every 6 hours (take 2 500 mg tablets of over the counter Tylenol). Do not exceed 4000 mg of Tylenol in 24 hour period. - Oxycodone 5 m or 2 tablets every 4 hours as needed for pain Normal symptoms with laminaria in place: - Cramping, pain, pressure that improves with pain medications - Light vaginal bleeding/spotting - Discolored discharge (this may vary based on the cleaning solution used on the cervix and sponges) - You will have sponges in the vagina that may feel similar to a large tampon. If they fall out, that is ok. Let us know in the morning when you come for your procedure. CALL if you have the following with laminaria in place: - Bleeding that is like a period or more - Pain or cramping that is not improving with pain medications - A gush of fluid as if your water broke - Fever (Temperature 100.4F or higher) - Severe vomiting, where you are unable to keep down liquids or medications Please call Dr. Franco [phone] Ramirez [phone] with concerns for possible labor or proceed to [facility] Labor and Delivery Day of surgery instructions: Your D&E is scheduled for 3:30 pm. Please arrive to the hospital by 1:30 pm You should have NOTHING to EAT or DRINK after midnight the night before your procedure. Small sips of water with medication is okay. You should not chew gum, eat candy, or drink anything until after your procedure. You MUST have a responsible adult with you to drive you home after the procedure. documented in this encounter [facility] 02-07-2024 Procedure note Lucie Dent is a 33 year old at 21w3d who presents today for cervical dilator insertion prior to dilation and evacuation. Estimated Date of Delivery: 06/16/24 UNIVERSAL PROTOCOL / SAFETY CHECKLIST Procedure to be performed: cervical dilator insertion Sign in Communication: Completed Time Out: Team Confirms the Correct Patient, Correct Procedure, Correct Site and Site Marking, Correct Position (if applicable), Prep and Dry Time (if applicable). Affirmation of Time Out: YES Sign Out Discussion: Completed Bayron Ramirez DO PROCEDURE: BIMANUAL EXAM: cervix closed, anteverted, uterus enlarged to 21 weeks EXTERNAL GENITALIA: Normal in appearance without lesions VAGINA: Normal in appearance without lesions CERVIX: Speculum placed in vagina and excellent visualization of cervix achieved. Cervix and upper vagina cleansed with betadine. Paracervical block administered with 20 mL of 1% lidocaine without epinephrine. Anterior lip of cervix grasped with single tooth tenaculum. 8 dilators placed into cervix (3 dilipan and 2 Large and 3 small laminaria), 1 gauze placed in vagina. Procedure Summary: Patient tolerated procedure well. Bayron Ramirez DO documented in this encounter [facility] 02-07-2024 Nurse Note Pt state she has no concerns. Mirella Edmondson MA February 07, 2024 2:41 PM [facility] 02-07-2024 Nurse Note Pt state she has no concerns. Mirella Edmondson MA February 07, 2024 2:41 PM documented in this encounter [facility] 02-06-2024 Telephone encounter Note Complex Family Planning Clonic RN Coordination Date of Referral: 02/05/2024 Reason for Referral: Termination d/t anomaly Primary SENIOR ASSET MANAGER Provider: Dr. Uribe Documentation of Patient Contact: Date: Contact Type: Details: Sign: 02/05/2024 Phone Called pt, verified name and . Introduced self and CFP. Introduced self and role as director of career resources. Patient confirmed her decision for care. Validated patients decision and reinforced support. Pt was risked out of care at , so was referred back to [facility]. Offered pt appointment tomorrow 02/[address] Ramirez, she accepts. Office visit scheduled tomorrow 02/[address] Ramirez at [facility] office for termination consents. Pt denies questions or concerns at this time. 02/06/2024 Phone Called pt, verified name and . Advised pt to arrive at 1:30pm at [facility] L&D for preop, to be NPO for at least 8 hours prior to surgery, and to have a ride home; pt verbalizes understanding of all preop instructions. Pt given local hot information since she lives >1hr away. She confirms appointment for Laminaria placement tomorrow 5/30 at 2:30pm with Dr. Ramirez at [facility] office. Pt denies other questions or concerns at this time. KP [facility] 02-06-2024 Miscellaneous Notes Complex Family Planning Clonic RN Coordination Date of Referral: 02/05/2024 Reason for Referral: Termination d/t anomaly Primary SENIOR ASSET MANAGER Provider: Dr. Uribe Documentation of Patient Contact: Date: Contact Type: Details: Sign: 02/05/2024 Phone Called pt, verified name and . Introduced self and CFP. Introduced self and role as director of career resources. Patient confirmed her decision for care. Validated patients decision and reinforced support. Pt was risked out of care at , so was referred back to [facility]. Offered pt appointment tomorrow 02/[address] Ramirez, she accepts. Office visit scheduled tomorrow 02/[address] Ramirez at [facility] office for termination consents. Pt denies questions or concerns at this time. 02/06/2024 Phone Called pt, verified name and . Advised pt to arrive at 1:30pm at [facility] L&D for preop, to be NPO for at least 8 hours prior to surgery, and to have a ride home; pt verbalizes understanding of all preop instructions. Pt given local hot information since she lives >1hr away. She confirms appointment for Laminaria placement tomorrow 02/06 at 2:30pm with Dr. Ramirez at [facility] office. Pt denies other questions or concerns at this time. KP COORDINATION CHECKLIST 21w2d Estimated Date of Delivery: 06/16/24 Referring provider: Dr. Demarco Primary OBGYN Provider: Dr. Uribe Primary coordinator: Kristi Marquez, RN Insurance authorization: [] Message sent to pt with CPT codes (if needed) [] Message sent to PAVE [x] Approved; pt has medicaid, but approved for care at [facility] per Dr. Pacheco. Pt was turned away from d/t C/S x3. Relevant HPI: ectopic s/p right salpingectomy. CSx3. Patient preference: [] Message sent to pt with D&E vs IOL information [x] D&E [] IOL [] Undecided Procedure Details Location: [facility] Date/Time: 02/07 at 3:30pm Surgeon: Dr. Franco [x] Message sent to L&D nurse rollout manager, anesthesia if on L&D Appointments: [x] Informed consent/counseling, 02/[address] Ramirez. [x] Laminaria if 18+ weeks (consider at 17 weeks if minor, prior LEEP/CKC, multiple CS), 02/06 at 2:30pm with Dr. Ramirez [] Post-op, date, provider Induced forms: [] Electronic termination consents x 2 [] [place] Medicaid certification form necessary If history of CS and 14+ weeks: [x] Placental location: anterior, no evidence of PAS. ----COMPLEX PATIENTS--- Consults, if indicated: [] MFM, date [] Family Planning, date [] Cardiology, date [] Anesthesia, date [] Social work/pysch, date [] Spiritual care, date [] Music therapy, date [] Other: Pre-Op testing [] Echo [] Labs: CBC, T&S, other: [] ECG Maternal admitting service: [] Maternal Medicine [] CFP [] Other: [] Admission not planned Post-Op Dispo: [] Home same-day [] Inpatient: Cards Service pager: Post-Op testing prior to discharge [] Echo [] Labs: CBC, T&S, other: [] ECG Anticoagulation Recommendations: control plan: Staff Notified [] Laborist [] MFM covering day/night [] Nursing management/Nursing staff [] Anesthesia [] Family planning documented in this encounter [facility] [place] 02-06-2024 Telephone encounter Note Called Ms. 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 No additional significant DNA copy number changes detected. No additional testing is pending or indicated. Inquired if Ms. Dent would like to discuss testing options for future pregnancies now or if she would prefer a MyChart message be sent with this information for future review. She opted for a MyChart message with this information which will be sent. Emotional support was provided and offered to send support resources given her TOP later this week, which she opted for. Encouraged to call with any future questions/concerns/etc. Ana Cristina Hernandez CGC [facility] [place] Work Phone: 02-06-2024 Miscellaneous Notes Called Ms. 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 No additional significant DNA copy number changes detected. No additional testing is pending or indicated. Inquired if Ms. Dent would like to discuss testing options for future pregnancies now or if she would prefer a MyChart message be sent with this information for future review. She opted for a MyChart message with this information which will be sent. Emotional support was provided and offered to send support resources given her TOP later this week, which she opted for. Encouraged to call with any future questions/concerns/etc. Ana Cristina Hernandez CGC Received a call back from Ms. Dent. Disclosed additional amniocentesis results. Chromosome analysis: ABNORMAL, MALE KARYOTYPE (47, XY, +13). 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 Discussed sporadic inheritance and recurrence risks for future pregnancies. Emphasized there was nothing she or her partner could have done to cause or prevent this. AFAFP: POSITIVE. Reflex to AChE: POSITIVE. 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 Emotional support provided. Reviewed the pending microarray analysis. Ms. Dent stated she [facility] and was not a candidate for TOP due to her history. Informed her I will update the team of this. Encouraged to call with any questions/concerns/etc. Ana Cristina Hernandez CGC Left a VM for Ms. Dent stating that I was calling with results. Left my direct phone number ([phone]), availability, and requested a call back. Plan to discuss the chromosome analysis results (47, XY, +13) and positive AFAFP and AChE results. Ana Cristina Hernandez CGC Called Ms. Dent to inform her of the Insight analysis results from her amniocentesis: ABNORMAL, pattern consistent with Trisomy 13. No evidence of numerical abnormality for chromosomes 18, 21, X, and Y. Ms. Dent is aware of learn reported sex: male. She understands that while this is a preliminary result, this is likely a true diagnosis given the ultrasound findings. Reviewed the pending chromosome analysis which can confirm the diagnosis and distinguish between molecular etiologies. Ms. Dent stated she has not felt movement today. After discussion with Dr. Demarco, recommended a viability ultrasound. Ms. Dent stated she cannot come in tomorrow, but can come in Sunday. After further discussion, her echo was canceled and she was instead scheduled for a viability ultrasound at [place] at 1 pm. All questions were answered. Encouraged to call with any questions/concerns/etc. Ana Cristina Hernandez CGC documented in this encounter [facility] [place] 02-06-2024 Telephone encounter Note COORDINATION CHECKLIST 21w2d Estimated Date of Delivery: 06/16/24 Referring provider: Dr. Demarco Primary OBGYN Provider: Dr. Uribe Primary coordinator: Kristi Marquez RN Insurance authorization: [] Message sent to pt with CPT codes (if needed) [] Message sent to PAVE [x] Approved; pt has medicaid, but approved for care at [facility] per Dr. Pacheco. Pt was turned away from d/t C/S x3. Relevant HPI: ectopic s/p right salpingectomy. CSx3. Patient preference: [] Message sent to pt with D&E vs IOL information [x] D&E [] IOL [] Undecided Procedure Details Location: [facility] Date/Time: 02/07 at 3:30pm Surgeon: Dr. Franco [x] Message sent to L&D nurse rollout manager, anesthesia if on L&D Appointments: [x] Informed consent/counseling, 02/[address] Ramirez. [x] Laminaria if 18+ weeks (consider at 17 weeks if minor, prior LEEP/CKC, multiple CS), 02/06 at 2:30pm with Dr. Ramirez [] Post-op, date, provider Induced forms: [] Electronic termination consents x 2 [] [place] Medicaid certification form necessary If history of CS and 14+ weeks: [x] Placental location: anterior, no evidence of PAS. ----COMPLEX PATIENTS--- Consults, if indicated: [] MFM, date [] Family Planning, date [] Cardiology, date [] Anesthesia, date [] Social work/pysch, date [] Spiritual care, date [] Music therapy, date [] Other: Pre-Op testing [] Echo [] Labs: CBC, T&S, other: [] ECG Maternal admitting service: [] Maternal Medicine [] CFP [] Other: [] Admission not planned Post-Op Dispo: [] Home same-day [] Inpatient: Cards Service pager: Post-Op testing prior to discharge [] Echo [] Labs: CBC, T&S, other: [] ECG Anticoagulation Recommendations: control plan: Staff Notified [] Laborist [] MFM covering day/night [] Nursing management/Nursing staff [] Anesthesia [] Family planning [facility] [place] 02-06-2024 Instructions Bayron Ramirez DO - 02/06/2024 12:50 PM EDT Family Planning Instructions/Expectations: Please take Azithromycin and ibuprofen about 30 minutes prior to osmotic dilator appointment. You had laminaria placed in order to gradually open your cervix to allow for the procedure to be completed safely. Afterwards and overnight, you may experience cramping, pressure or pain as a result of the laminaria swelling overnight. This is normal. You may take: - Ibuprofen 600 mg every 6 hours (if you are taking regular over the counter ibuprofen, that is 3 tablets) - Tylenol 1000 mg every 6 hours (take 2 500 mg tablets of over the counter Tylenol). Do not exceed 4000 mg of Tylenol in 24 hour period. - Oxycodone 5 m or 2 tablets every 4 hours as needed for pain Normal symptoms with laminaria in place: - Cramping, pain, pressure that improves with pain medications - Light vaginal bleeding/spotting - Discolored discharge (this may vary based on the cleaning solution used on the cervix and sponges) - You will have sponges in the vagina that may feel similar to a large tampon. If they fall out, that is ok. Let us know in the morning when you come for your procedure. CALL if you have the following with laminaria in place: - Bleeding that is like a period or more - Pain or cramping that is not improving with pain medications - A gush of fluid as if your water broke - Fever (Temperature 100.4F or higher) - Severe vomiting, where you are unable to keep down liquids or medications Day of surgery instructions: Your D&E is scheduled for 02/07. Please arrive to the hospital by 1 pm. You should have NOTHING to EAT or DRINK after midnight the night before your procedure. Small sips of water with medication is okay. You should not chew gum, eat candy, or drink anything until after your procedure. You MUST have a responsible adult with you to drive you home after the procedure. LOSS RESOURCES Many people have different feelings and experiences with loss or termination. Grief can be a normal part of the healing process. Taking time to heal both physically and emotionally after a loss is important. Counseling is available to help you cope with your loss. A loss support group might also be a valuable resource to you and your family. Ask your healthcare provider for more information about counseling and support groups. Online Resources Unspoken Grief: an online miscarriage support resource for miscarriage, stillbirth and loss https://[employer]/ A Heartbreaking Choice: support for diagnosis or termination for medical reasons. http://www.eartbrebelchertown state school for the feeble-mindedchoice.c / Share: and Infant Loss Support https://nationalare.org/[place]/ Ending a Wanted : support for patients and families ending a after or maternal medical diagnosis https://endingawantedpregnancy.co m Defending Leonarda: one person's story about loss and collected resources. Defebipining leonarda. Daysi's Gift: headquarters in [place] but with online support group https://www.[employer]ar[employer]/infan q-gmow-osgntgy-groups.html Local Resources Love Lives On, [facility] Support Group https://my.[facility].org/santana danielle/[facility]/guest- services/support Jaime(Families Experiencing Early Loss) [facility] Support Group https://consultqd.[facility] .org/hoynkejsv-auztvlcuj-idfhcpdr dbg-ogtqjig-zxuioucb-grieving-fam ilies/ [facility] - counseling services [phone] or toll free at [phone] CC Support Groups (not specific to loss) https://my.[facility].org/carlos berman/information/bereavement/leonard pport-groups [facility].org [address], [place] [address] [phone] ([phone]) Offers quarterly loss support groups, individual and couples bereavement counseling, remembrance services and more [facility] Bereavement [place] Counselors with experience with families facing the loss of a baby before . This service may be covered by your insurance. If not, [facility] will not turn anyone away because of inability to pay. or [phone] Sherman Ferraro, local counselor, not associated with [facility] [place] [phone] Some of our families have recommended Sherman Ferraro as he specializes in helping families who have had or are facing a loss. This may be covered by your insurance, if not, a sliding scale payment plan is available. BOOKS Our Heartbreaking Choices: Forty-Six Women Share Their Stories of Interrupting a Much-Wanted , By Venita Vergara Sorrow: Loss-Guidance and Support for You and Your Family, By Charu Khan and Phuong Solitario Unspeakable Losses: Healing from Miscarriage, , and other Loss, By Alyssa Nash Empty Cradle, Broken Heart: Surviving the of your Baby, By Karey Castro Empty Arms: Coping with Miscarriage, Stillbirth, and Infant , By Veronica Vaughan I Love You Still: A Memorial Baby Book, By Kathya Gannon Understanding Your Grief: Ten Essential Touchstones for Finding Hope and Healing Your Heart, By Tank Patricia BOOKS FOR CHILDREN We Were Gonna Have a Baby, But We had an Jian Instead, By Ysabel Reed My Sibling Still, By Sanjana Morgan The Goodbye Book, By Franko Castellano Something Happened, By Isis Ty No New Baby, By Petrona Mac The Invisible String, By Richard Pop Our Baby , by Dalia Monaco (two books, one for surgical termination and one for induction of labor) documented in this encounter [facility] [place] 02-06-2024 History of Present illness Narrative [facility] Visit HPI: Lucie Dent is a 33 year old at Patient's last menstrual period was 09/10/2023 (exact date). who presents for consent prior to termination. The is complicated by a diagnosis of Trisomy 13 and multiple anomalies , initially suspected ultrasound and confirmed with amniocentesis. complicated by cleft lip/palate, NTD, bilateral urinary tract dilation, polydactylyl and complex cardiac defect. The patient is sure of her decision to end the and feels supported by her and family. SANDIE 06/16/2024, by Last Menstrual Period Placenta anterior -- no evidence of PAS Prior c-sections: Yes -- x 3 Blood type ABO/RH(D) Date Value Ref Range Status 06/15/2021 O POSITIVE Final Antibody Screen Date Value Ref Range Status 12/20/2023 Negative Final Hemoglobin (g/dL) Date Value 12/20/2023 13.6 12/20/2023 13.8 06/09/2021 12.7 Hematocrit (%) Date Value 12/20/2023 40.8 12/20/2023 41.9 06/09/2021 39.2 WBC (k/uL) Date Value 12/20/2023 5.67 06/09/2021 6.08 Medical history reviewed and updated. PAST MEDICAL HISTORY Diagnosis Date Anemia Anxiety Asthma Depression Ectopic 2021 History of depression PCOS (polycystic ovarian syndrome) 2019 depression PAST SURGICAL HISTORY Procedure Laterality Date DELIVERY ONLY , low transverse DELIVERY ONLY , low transverse DELIVERY ONLY , low transverse HSG LIG/TRNSXJ FLP TUBE ABDL/VAG APPR UNI/BI 2018 Tubal ligation SALPINGECTOMY 09/07/2021 RIGHT SIDE - ectopic at [facility] TONSILLECTOMY AND ADENOIDECTOMY HX UNL LAP TUBAL ANASTOMOSIS Bilateral FAMILY HISTORY Problem Relation Age of Onset Fibromyalgia Mother other (Endometrosis) Mother other (Rheumatoid Arthritis) Mother Anxiety disorder Mother Depression Mother No Known Problems Father no relationship Asthma Sister Depression Brother Asthma Brother Hypertension Brother Asthma Maternal Grandmother Heart Maternal Grandmother Systemic Lupus Erythematosus Maternal Grandmother Diabetes Maternal Grandmother No Known Problems Maternal Grandfather No Known Problems Daughter No Known Problems Son No Known Problems Son Anesthesia Problems No Family History Social History Tobacco Use Smoking status: Every Day Smokeless tobacco: Never Tobacco comments: Vape Vaping Use Vaping Use: current everyday user Substances: Nicotine (OCCASIONAL) Substance Use Topics Alcohol use: Yes Comment: Socially Drug use: Never Current Outpatient Medications Medication Sig Cholecalciferol, Vitamin D3, 50 mcg (2,000 unit) cap busPIRone (BUSPAR) 5 mg tablet Take 1 tablet by mouth three times a day. ferrous sulfate (IRON ORAL) Take by mouth. acetaminophen (TYLENOL EXTRA STRENGTH) 500 mg tablet Take 2 tablets by mouth every 8 hours as needed for pain. PNV/iron/omega3/folic acid/min (PRENAT JC-LIVN-[id number]-UY-[id number] ORAL) Take by mouth. sertraline HCl (ZOLOFT ORAL) Take 100 mg by mouth once daily. Pt is taking 1 and 1/2 tablets daily azithromycin (ZITHROMAX) 500 mg tablet Take 1 tablet by mouth once daily. ibuprofen (MOTRIN) 600 mg tablet Take 1 tablet by mouth every 6 hours as needed for pain. Take with food. oxyCODONE IR (ROXICODONE) 5 mg immediate release tablet Take 1-2 tablets by mouth every 6 hours as needed for pain for up to 2 days. ondansetron orally disintegrating (ZOFRAN ODT) 4 mg disintegrating tablet Take 1 tablet by mouth every 8 hours as needed for nausea/vomiting. doxylamine succinate (UNISOM, DOXYLAMINE, ORAL) Take by mouth. (Patient not taking: Reported on 02/06/2024) aspirin, enteric coated (ASPIRIN, ENTERIC COATED) 81 mg EC tablet Take 1 tablet by mouth once daily. (Patient not taking: Reported on 02/06/2024) No current facility-administered medications for this visit. Allergies As of Date: 02/06/2024 Allergen Noted Reaction SULFA (SULFONAMIDE ANTIBIOTICS) 07/21/2020 Hives and Shortness of Breath Fully Assessed 02/06/2024 REVIEW OF SYSTEMS: Allergies and current medication updated:Yes EXAM: BP 127/85 Pulse 80 Ht 5' 6 (1.68m) Wt 214 lb 11.7 oz (97.4kg) LMP 09/10/2023 BMI 34.67 kg/(m^2). GENERAL: pleasant, female in no apparent distress CHEST: Normal inspiratory effort ABDOMEN: soft, non-tender, and no masses PSYCH: Affect is appropriate FHT Present, assessed by ultrasound COUNSELING Pt counseled on options including continuing the , parenting, adoption, and . Pt desires . We discussed that risks of the procedure increase as gestational age increases. We discussed options for termination in the second trimester include dilation and evacuation or induction of labor. Pt does not desire resuscitation if the results in a live and if such resuscitation would be clinically appropriate based on the circumstances. Risks of induction include not being successful, time period needed, pain, bleeding, infection, possible need for D&E if heavy bleeding and possible need for D&C if placenta is retained. Risks of D and E include pain during cervical dilator placement, cervical injury or laceration, bleeding, infection, organ injury/uterine perforation, retained tissue, possible need for future surgeries (rarely chance of needing a laparotomy or hysterectomy). We reviewed how the procedure is performed and the need for ultrasound guidance. We discussed the need for anesthesia. Inability to see the fetus afterward with D and E discussed. There are risks for bleeding regardless of method. Post procedural contraception is available if desired. Post procedural counseling is available if needed, as well. We discussed that we would need to sign consent at least 24 hours prior to cervical dilator placement (we usually use dilators to decrease risk for cervical injury) In [place], termination after 20 weeks requires remains be sent to home. 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 Pt will be 21 weeks 4days on date of D&E 1. Known anomaly, antepartum, single or unspecified fetus 2. Fetus with trisomy 13, single gestation - termination checklist completed with patient. - termination informed consent form signed by patient - [facility] development and family planning publication offered - Declines resuscitation if live and if clinically appropriate based on the circumstances. - Accepts cytogenetics -- already performed - Accepts memory box - Accepts private burial (required >= 20 weeks gestation) - Return to office 02/07/2024 for cervical dilator placement -Pre op CBC/Type and screen ordered 3. with history of section, antepartum -We reviewed her previous history of section x 3. We reviewed that placenta is anterior and fundal. There is no obvious evidence of placenta accreta spectrum on her ultrasound. We reviewed the limitations of ultrasound. We reviewed that her history of 3 prior sections would increase her risk of bleeding, perforation, cervical laceration, possible injury and potential need for additional procedures including hysterectomy in setting of life threatening complication. We reviewed that those risks are overall small and we reviewed risk mitigating steps (osmotic dilators, ultrasound guidance, prophylactic uterotonic/vasopressin) that would lower the risk. 4. Post-operative state - oxyCODONE IR (ROXICODONE) 5 mg immediate release tablet; Take 1-2 tablets by mouth every 6 hours as needed for pain for up to 2 days. Dispense: 8 tablet; Refill: 0 Bayron Ramirez DO Medical Decision Making: Problems: Moderate: New problem with uncertain prognosis Data: Unique source(s) for external note(s) reviewed: 3+ Unique test result(s) reviewed: 3+ Risk: Moderate: Decision on minor surgery w/ risk factors, Drug management and Moderate risk from testing/treatment Medical Decision Making Level: 4 - Moderate documented in this encounter [facility] [place] 02-05-2024 Telephone encounter Note Complex Family Planning Clonic RN Coordination Date of Referral: 02/05/2024 Reason for Referral: Termination d/t anomaly Primary SENIOR ASSET MANAGER Provider: Dr. Uribe Documentation of Patient Contact: Date: Contact Type: Details: Sign: 02/05/2024 Phone Called pt, verified name and . Introduced self and CFP. Introduced self and role as director of career resources. Patient confirmed her decision for care. Validated patients decision and reinforced support. Pt was risked out of care at , so was referred back to [facility]. Offered pt appointment tomorrow 02/[address] Ramirez, she accepts. Office visit scheduled tomorrow 02/[address] Ramirez at [facility] office for termination consents. Pt denies questions or concerns at this time. KP [facility] 02-05-2024 Miscellaneous Notes Complex Family Planning Clonic RN Coordination Date of Referral: 02/05/2024 Reason for Referral: Termination d/t anomaly Primary SENIOR ASSET MANAGER Provider: Dr. Uribe Documentation of Patient Contact: Date: Contact Type: Details: Sign: 02/05/2024 Phone Called pt, verified name and . Introduced self and CFP. Introduced self and role as director of career resources. Patient confirmed her decision for care. Validated patients decision and reinforced support. Pt was risked out of care at , so was referred back to [facility]. Offered pt appointment tomorrow 02/[address] Ramirez, she accepts. Office visit scheduled tomorrow 02/[address] Ramirez at [facility] office for termination consents. Pt denies questions or concerns at this time. KP documented in this encounter [facility] [place] 02-05-2024 Telephone encounter Note Received a call back from Ms. Dent. Disclosed additional amniocentesis results. Chromosome analysis: ABNORMAL, MALE KARYOTYPE (47, XY, +13). 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 Discussed sporadic inheritance and recurrence risks for future pregnancies. Emphasized there was nothing she or her partner could have done to cause or prevent this. AFAFP: POSITIVE. Reflex to AChE: POSITIVE. 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 Emotional support provided. Reviewed the pending microarray analysis. Ms. Dent stated she went [facility] last week and was not a candidate for TOP due to her history. Informed her I will update the team of this. Encouraged to call with any questions/concerns/etc. Ana Cristina Hernandez CGC [facility] [place] 02-05-2024 Telephone encounter Note Left a VM for Ms. Dent stating that I was calling with results. Left my direct phone number ([phone]), availability, and requested a call back. Plan to discuss the chromosome analysis results (47, XY, +13) and positive AFAFP and AChE results. Ana Cristina Hernandez CGC [facility] [place] 01-28-2024 Telephone encounter Note Called Ms. Dent to inform her of the Insight analysis results from her amniocentesis: ABNORMAL, pattern consistent with Trisomy 13. No evidence of numerical abnormality for chromosomes 18, 21, X, and Y. Ms. Dent is aware of learn reported sex: male. She understands that while this is a preliminary result, this is likely a true diagnosis given the ultrasound findings. Reviewed the pending chromosome analysis which can confirm the diagnosis and distinguish between molecular etiologies. Ms. Dent stated she has not felt movement today. After discussion with Dr. Demarco, recommended a viability ultrasound. Ms. Dent stated she cannot come in tomorrow, but can come in Sunday. After further discussion, her echo was canceled and she was instead scheduled for a viability ultrasound at [place] at 1 pm. All questions were answered. Encouraged to call with any questions/concerns/etc. Ana Cristina Hernandez CGC [facility] [place] 01-28-2024 Telephone encounter Note 2nd risk assessment form submitted 01/28/24 Chastity Mishra RN [facility] 01-28-2024 Miscellaneous Notes 2nd risk assessment form submitted 01/28/24 Chastity Mishra RN documented in this encounter [facility] 01-25-2024 History of Present illness Narrative REPRODUCTIVE GENETIC COUNSELING INITIAL VISIT Lucie Dent : 1990 Above identifiers confirmed by Ana Cristina Hernandez MS [facility] Consultation requested by: Dr. Selena Demarco Date of clinic visit: January 25, 2024 Mechanical Equipment Test Engineer offered/present: No - Stateless per EMR Lucie Dent is a 33 year old female referred by Dr. Demarco for genetic counseling to discuss her anatomy ultrasound findings. Ms. Dent is seen via a virtual Distance Health visit today via [facility] [employer] platform per patient choice. The visit is conducted synchronously in real-time. The patient is unaccompanied. A genetic counseling student services vice president was present for the visit with the patient's consent. I have communicated my name and active licensure. The patient's identity and physical location were verified at the time of this visit. Either the patient or their legal c s s representative has been informed of the risks and benefits of -- and alternatives to -- treatment through a remote evaluation and consents to proceed with the evaluation remotely. PRESENTING PROBLEM: Ms. Dent is a 33 year old female referred to genetics to discuss her anatomy ultrasound findings from 01/23/[address] Demarco. As per the ultrasound report, Single, live, intrauterine . biometry is consistent with the established gestational age. 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 Ms. Dent opted for an amniocentesis yesterday with Dr. Demarco. The ultrasound yesterday noted Single, live intrauterine . Normal amniotic fluid. 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 Ms. Dent presents today to discuss these findings and pending genetic testing further. Of note, she has not had any aneuploidy screening in previously. REPRODUCTIVE HISTORY: Currently : Yes / 19w4d (by LMP) LMP: 09/10/23 SANDIE: 06/16/24 Refers to fetus as [place] history: 1. MAB in first trimester 2. 2011, son, FT, CS due to failure to progress, IOL due to BP getting high, baby was 1 week early 3. 2014, son, FT, RCS, no complications 4. 2017, daughter, FT, RCS, no complications 5. 2020, ectopic 6. SAB at 6 weeks 7. Current (pregnancies 5-7 are with her current partner) Infertility as a couple: No Parental Screens: CF: No SMA: No Hemoglobinopathies: Yes - normal hemoglobin capillary electrophoresis pattern per [facility] 2023; Patient's MCV: 87.8 fL Religion Diseases: Not at increased risk Other: No Chromosomal analysis: Patient: No Partner: No Products of conception: No exposures: - vitamins or other folate supplementation: Yes - Prescription medicines: Yes - Vitamin D3, Iron, Buspar (5 mg 3x/day), Sertraline - OTC medicines, herbal medicines, other supplements: Yes - Tylenol occasionally, Tums, baby aspirin - Tobacco, alcohol, or illicit drugs: Yes - Vaping; has cut down since beginning of - Maternal infections or fevers: Yes - Sinus infection - Other known/suspected human teratogens: No Aneuploidy screening: no Ultrasounds: - Dating scan at 6 weeks gestation by LMP (performed by Yuliya Jackson APRN.CNM): 6 weeks by scan. - NT scan: performed 12/07/[address] Neville; 1.4 mm NT - anatomy performed 01/23/[address] Demarco; see HPI; normal amniotic fluid volume. - echocardiogram scheduled 01/30/24 CVS: No Amniocentesis: Completed 01/24/[address] Demarco; see HPI for findings noted at time of scan - Insight analysis, chromosome analysis, chromosome microarray analysis, and AFAFP with reflex to AChE pending; lab is holding cells as well complications: - Maternal diabetes, hypertension, seizures, other illness: No - Vaginal bleeding, labor, other complications: Yes - spotting twice in first trimester - Decreased movement: Not asked SIGNIFICANT PAST MEDICAL/SURGICAL HISTORIES: MOB: - Anxiety, depression - Up and down blood sugars; no formal diagnosis FOB: (age 28) - ADHD; can't function without Vyvanse FAMILY HISTORY: A formal 3-generation pedigree was not obtained for the patient and her partner due to the nature of today's visit. Ms. Dent declined a family history of genetic disorders, defects, or recurrent loss. She reported an uncle passed as due to cervical concerns (cervix didn't soften and collapsed). She also reported her cousin had a slight heart murmur and her father passed from a massive heart attack (history of heart disease, smoking, EtOH). - Patient's ethnicity: - Partner's ethnicity: Not assessed - Patient and partner are NOT consanguineous GENETIC COUNSELING/DISCUSSION: Ms. Dent is a 33 year old female referred to genetics to discuss the multiple congenital anomalies noted on her anatomy ultrasound as noted in the HPI. Reviewed that alone, any of the ultrasound findings could be isolated findings. However, multiple ultrasound findings across different organ systems increases the likelihood for an underlying genetic (chromosomal, copy number variant, or single-gene) etiology. Discussed high concern for Trisomy 13 given the findings. Discussed common features associated with Trisomy 13 including severe intellectual disability and multiple defects, such as cardiac defects (>80% chance), brain abnormalities such as holoprosencephaly (60% chance), cleft lip and/or palate (60% chance), polydactyly, kidney defects, eye abnormalities, and growth restriction. Reviewed that there is a high risk for stillbirth or intrauterine demise with 90% of affected pregnancies miscarrying. Discussed that 10% of liveborn, affected infants live past their first birthday, often with extensive medical intervention and surgeries, and features include seizures, apnea, feeding difficulties, and developmental delays. Features vary between affected individuals and the severity of features cannot be predicted prenatally. The remaining differential list is long. Shared that additional findings may be identified later in or postnatally as well. Reviewed that the prognosis is difficult to predict at this time, but if an underlying genetic etiology is determined, this may be able to provide more information regarding prognosis and may help with and management. In addition, discussed that finding an underlying etiology would be able to assist with recurrence risk estimates. An explanation of chromosomes and genes was provided. Provided a brief explanation of molecular etiologies for chromosomal abnormalities (non-disjunction, translocation, mosaicism). Discussed the variability of copy number variants based on the size of the deletion/duplication and genes involved. Reviewed that copy number variants and single-gene disorders may be inherited from a parent or may be de sue, or brand new, in a . Ms. Dent indicated understanding. Discussed the completed amniocentesis. Reviewed the testing plan of Insight analysis, chromosome analysis, chromosome microarray analysis, and AFAFP with reflex to AChE as well as the option of additional testing via whole exome sequencing (VITO) if prior testing is normal. Discussed the timelines for turn around times and types of results including variants of uncertain significance. Reviewed that microarray can also identify regions of homozygosity. Shared that an additional visit would be necessary if VITO is pursued to go through the testing in more detail and obtain consent from both herself and her partner. Ms. Dent stated understanding. Shared the timeline for termination in [place] and surrounding states. Further details will be provided in the future if needed. Emphasized that we will support her and her partner with any management decisions. Reviewed the availability of the Care Team to assist with care coordination the remainder of . Recommended a echocardiogram to better characterize the suspected congenital heart defect. Shared that additional growth ultrasounds in the second half of are recommended as well. Based on family history: Discussed the options of carrier screening for ACOG recommended conditions, expanded carrier screening for 176 conditions, or more comprehensive carrier screening through a 500+ gene panel, which is recommended for consanguineous couples and couples with a family history of specific conditions, but may be considered for information-seeking couples. Reviewed autosomal recessive and X-linked inheritance as well as the benefits, risks, and limitations of the screening. Discussed the associated costs and turn around times. Reviewed available options if she and her partner are a carrier couple, including testing in , testing after , and IVF with preimplantation genetic testing in future pregnancies. Discussed the option of stepwise versus concurrent screening. Ms. Dent opted for expanded carrier screening through [employer] ([employer] panel). She will discuss this with her partner to determine if he would like concurrent testing. Reviewed the availability of a referral to behavioral health given the ultrasound findings and her personal history of anxiety and depression. Ms. Dent was appreciative and opted for this. SUGGESTIONS/PLAN: 1. Ms. Dent opted for an amniocentesis yesterday with the testing plan of AFAFP with reflex to AChE, Insight analysis, chromosome analysis, chromosome microarray analysis, and hold cells for possible additional testing. 2. Ms. Dent opted for expanded carrier screening through [employer] ([employer] panel). The orders have been placed and she will be notified of the results. She will discuss this with her partner to decide if he wishes to pursue concurrent or stepwise testing. 3. Ms. Dent opted for a referral to behavioral health and was provided the scheduling number. 4. Follow-up as indicated by the above results. 5. Encouraged her to contact me with any questions/concerns/etc. Thank you for referring Ms. Dent. Please do not hesitate to call if you have questions/concerns. The patient was seen for a total of 45 minutes, greater than 50% of which was spent [id number] counseling. This plan is being carried out under the oversight of Dr. Sariah Skinner. This note will also be sent to the referring provider via the electronic medical record. Ana Cristina Hernandez MS, [facility] Licensed, Certified Genetic Counselor EPIC CC: Dr. Selena Demarco - Referring Physician Dr. Alia Uribe - OB Dr. Sariah Skinner (reformatory attendant) documented in this encounter [facility] 01-24-2024 History of Present illness Narrative UNIVERSAL PROTOCOL / SAFETY CHECKLIST Lucie Dent is here for Amniocentesis Pt ID verified with patient: Yes Procedure verified with patient: Yes Audible time-out documented: Yes. Time: 1203 Procedure started 1212 Procedure ended 1215 Physician: Dr Leila Demarco Frontload Driver: Ivan Chen, cable installation technician LMP: Patient's last menstrual period was 09/10/2023 (exact date). Blood Type: O positive SANDIE: 06-16-24 AGE: [age] year old BLEEDING/DISCHARGE: No FEVER: No UTERINE ANOMALIES: No NEEDS RhoGAM: No ALLERGY TO: LATEX: No BETADINE: No Home going instructions given. Pt. acknowledged understanding of instructions. Procedure to be Performed: genetic amniocentesis Specimen taken to send out lab at , hand delivered to Jackie King Sign In: A Moment of CARE was completed. Personnel directly involved with the procedure wore the appropriate PPE (Personal Protective Equipment). Special equipment: amniocentesis kit Patient/Surrogate Stated/Verified: PATIENT VERIFIED(optional for EMERGENT procedures): Patient name, Date of , Relevant allergies, and The intended procedure Time Out Communication: Intended patient and procedure match the source documents. Consent documented and matches the intended procedure. Relevant labs, photos, and/or imaging studies have been reviewed. Correct side/site marked and visible. Medications required for procedure verified. No fire risk assessment and interventions applicable. No implant(s) inserted. Sign Out: SIGN OUT (optional for EMERGENT procedures): All specimen containers correctly labeled. All instruments, equipment, possible retained foreign bodies accounted for. Post-procedure follow-up management communicated and Plan of Care Visit completed when applicable. Elidia Alva RN Images from the original note were not included. Inside Sales Advisor [employer] OUTPATIENT VISIT DATE January 24, 2024 OUTPATIENT VISIT TYPE CONSULT REFERRING PROVIDER: Selena Demarco MD Recommendations from today's consultation will be conveyed through the electronic medical record. History of Present Illness: 33 year old at 19w3d with Estimated Date of Delivery: 06/16/24 presenting for consultation with Maternal- Medicine at the [facility] in the setting of multiple anomalies. Doing ok today, anxious about procedure understandably but has partner here for support, comfortable moving forward to gain more information. Denies contractions, leaking fluid or vaginal bleeding. 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, unable to visualize pulmonary outflow or ductal arch or PA in 3VV -Possible postaxial polydactyly of hands Her relevant histories have been updated and are reviewed below: Obstetric History: # 1 - Date: 06/30/11, Sex: Male, Weight: 9 lb 1 oz (4.111 kg), GA: 41w0d, Delivery: , Low Transverse, Apgar1: None, Apgar5: None, Living: Living, Comments: Induced , FTP beyond 4 cm, CPD,800cc # 2 - Date: 02/02/15, Sex: Male, Weight: 10 lb 3 oz (4.621 kg), GA: 39w0d, Delivery: , Other, Apgar1: None, Apgar5: None, Living: Living, Comments: RCS # 3 - Date: 11/29/17, Sex: Female, Weight: 8 lb 4 oz (3.742 kg), GA: 39w0d, Delivery: , Other, Apgar1: None, Apgar5: None, Living: Living, Comments: Repeat planned C [place], BTL # 4 - Date: 09/07/21, Sex: None, Weight: None, GA: None, Delivery: None, Apgar1: None, Apgar5: None, Living: None, Comments: right fallopian tube # 5 - Date: None, Sex: None, Weight: None, GA: None, Delivery: None, Apgar1: None, Apgar5: None, Living: None, Comments: None Gynecologic History: History tubal reversal History ectopic Has seen Dr Rodriguez with [facility] Past Medical History: PAST MEDICAL HISTORY Diagnosis Date Anemia Anxiety Asthma Depression Ectopic 2021 History of depression PCOS (polycystic ovarian syndrome) 2019 depression Past Surgical History: PAST SURGICAL HISTORY Procedure Laterality Date DELIVERY ONLY , low transverse DELIVERY ONLY , low transverse DELIVERY ONLY , low transverse HSG LIG/TRNSXJ FLP TUBE ABDL/VAG APPR UNI/BI 2018 Tubal ligation SALPINGECTOMY 09/07/2021 RIGHT SIDE - ectopic at [facility] TONSILLECTOMY AND ADENOIDECTOMY HX UNL LAP TUBAL ANASTOMOSIS Bilateral Medications: Current Outpatient Medications on File Prior to Visit Medication Sig Cholecalciferol, Vitamin D3, 50 mcg (2,000 unit) cap doxylamine succinate (UNISOM, DOXYLAMINE, ORAL) Take by mouth. busPIRone (BUSPAR) 5 mg tablet Take 1 tablet by mouth three times a day. aspirin, enteric coated (ASPIRIN, ENTERIC COATED) 81 mg EC tablet Take 1 tablet by mouth once daily. ferrous sulfate (IRON ORAL) Take by mouth. acetaminophen (TYLENOL EXTRA STRENGTH) 500 mg tablet Take 2 tablets by mouth every 8 hours as needed for pain. PNV/iron/omega3/folic acid/min (PRENAT [id number]-EOPOM ORAL) Take by mouth. sertraline HCl (ZOLOFT ORAL) Take 50 mg by mouth once daily. Pt is taking 1 and 1/2 tablets daily Allergies: ALLERGIES Allergen Reactions Sulfa (Sulfonamide * Hives, Shortness of Breath Social History: Social History Tobacco Use Smoking status: Every Day Smokeless tobacco: Never Tobacco comments: Vape Vaping Use Vaping Use: current everyday user Substances: Nicotine (OCCASIONAL) Substance Use Topics Alcohol use: Yes Comment: Socially Drug use: Never Family History: FAMILY HISTORY Problem Relation Age of Onset Fibromyalgia Mother other (Endometrosis) Mother other (Rheumatoid Arthritis) Mother Anxiety disorder Mother Depression Mother No Known Problems Father no relationship Asthma Sister Depression Brother Asthma Brother Hypertension Brother Asthma Maternal Grandmother Heart Maternal Grandmother Systemic Lupus Erythematosus Maternal Grandmother Diabetes Maternal Grandmother No Known Problems Maternal Grandfather No Known Problems Daughter No Known Problems Son No Known Problems Son Anesthesia Problems No Family History Review of Systems: Negative other than as noted above. 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 Post-procedure precautions reviewed Assessment and Plan: 33 year old at 19w3d presenting for MFM consultation due to with multiple anomalies Amniocentesis performed today, see below and [place] for details of procedure. Discussed options for including expectant or termination including state laws and time limits. They are understandably hesitant however would consider procedure if fetus considered non-viable as in Trisomy 13 or potentially large translocation. They have genetic counseling tomorrow to discuss potential genetic diagnoses in detail. We also discussed expectant management with supportive or palliative care however this poses risk to Lucie given her 3 prior deliveries, as well as would delay their family planning which has been complex in terms of conceiving an intrauterine . Pending karyotype results and echocardiogram I will discuss plan with them in detail likely next Sunday or Sunday. Summary of Recommendations: -Follow up results genetic amniocentesis - echocardiogram scheduled for next week -Follow up pending above work up Thank you for allowing us to participate in the care of this patient. Please do not hesitate to contact our office with any questions or concerns. Consultation requested by Dr. Uribe for an opinion regarding complicated by multiple anomalies. My final recommendations will be communicated back to the requesting physician by way of shared Medical record or letter to requesting physician via US mail. I spent 55 minutes in the visit, with more than 50% of the total [id number] time of the visit in counseling / coordination of care. MATERNAL MEDICINE AMNIOCENTESIS The procedure including risks, benefits, options and personnel performing the procedure was discussed with the patient. There are no contraindications to the procedure. Lucie Dent expressed understanding and agreed to proceed. Pt ID verified with patient: Yes Procedure verified with patient: Yes Audible time-out documented: Yes. Physician: Selena Demarco MD Referring Physician: Dr Uribe Blood Type: O pos Reason for Amniocentesis: Genetic Study Gestational Age: 19w3d Type of Anesthesia: Local Prep: Betadine Ultrasound Performed: yes Number if Sites: 1 Number of Insertions: 1 Amount of Amniotic Fluid Withdrawn: 25 mL. Appearance: Clear Post-op Status: No Complications Post Amnio Heart Rate: normal Selena Demarco MD January 24, 2024 12:32 PM documented in this encounter [facility] 01-23-2024 Progress note Formatting of t his note might be different from the original. RR- VB No. LOF No. CTXS No. Movement: present. Other c/o: lightheaded Medication list reviewed. Physical Exam See Flow Sheet Abd: soft, nontender, gravid Ext: edema: no A/P 19w2d Estimated Date of Delivery: 06/16/24 lightheaded at times, symptomatic measures reveiwed Multiple anomalies noted on US today. D/w her and partner brain abnormalities and other structural changes noted. Reviewed further consultatoin w/ MFM and care center would be indicated and she would be contacted later today with an appointment. D/w her amniocentesis would be recommended. Encouraged to write down questions and the team would answer them to the best of our capabilities. She and partner stated understanding of plan. No f/u scheduled here for now, will wait for recommendations from care team and f/u here as needed and indicated. Alia Uribe M.D. [facility] 01-23-2024 Miscellaneous Notes RR- VB No. LOF No. CTXS No. Movement: present. Other c/o: lightheaded Medication list reviewed. Physical Exam See Flow Sheet Abd: soft, nontender, gravid Ext: edema: no A/P 19w2d Estimated Date of Delivery: 06/16/24 lightheaded at times, symptomatic measures reveiwed Multiple anomalies noted on US today. D/w her and partner brain abnormalities and other structural changes noted. Reviewed further consultatoin w/ MFM and care center would be indicated and she would be contacted later today with an appointment. D/w her amniocentesis would be recommended. Encouraged to write down questions and the team would answer them to the best of our capabilities. She and partner stated understanding of plan. No f/u scheduled here for now, will wait for recommendations from care team and f/u here as needed and indicated. Alia Uribe M.D. documented in this encounter [facility] 01-23-2024 Instructions Loretta Sampson MA - 01/23/2024 2:59 PM EDT SEQUENTIAL SCREENINGS The [facility] offers sequential screenings for women who are interested in screenings for chromosomal abnormalities and certain defects during a . The sequential screen combines ultrasound and blood tests to determine the risk of chromosomal abnormalities, including Down's Syndrome (Trisomy 21) and Trisomy 18, as well as open neural tube defects including spina bifida. Ultrasound examination is performed between 11 weeks and 13 weeks gestational age. Blood tests are drawn after the ultrasound and again later in the between 15 and 21 weeks gestational age. Please let your physician know if you are interested in this testing. It will require an appointment with our mobile service rv technician. This is not an ultrasound performed by a physician in our office during a routine visit. SIGNS AND SYMPTOMS OF LABOR 1. Contractions every 10 minutes or more often 2. Clear, pink, or brownish fluid (water) leaking from vagina 3. Feeling that baby is pushing down, pressure 4. Low, dull backache 5. Cramps that feel like a period 6. Cramps with or without diarrhea If you notice any of the above symptoms, contact our office at [phone] and ask to speak with a nurse. After hours, you can call doctors registry at [phone] OR call [facility] at [phone] and ask to have the doctor insurance verification rep paged. If you consider this an emergency, dial 0-1-2 or go to your nearest emergency department. NEED HELP? Are you dealing with a violent or abusive relationship? Are you a victim of rape or sexual assult? Call [facility] ([facility] 24 hour Crisis Hotline: 905.409.2195 or 988-825-6820. MANUAL Your Guide to a Healthy manual is now on-line. Visit [email or web address] to download your free copy documented in this encounter [facility] 01-17-2024 Telephone encounter Note Message sent to pt [facility] Work Phone: 01-17-2024 Miscellaneous Notes Message sent to pt 18w3d Next OB is 5/15 documented in this encounter [facility] 01-17-2024 Telephone encounter Note 18w3d Next OB is 5/15 [facility] 12-21-2023 Miscellaneous Notes RR- VB No. LOF No. CTXS No. Movement: present. Other c/o: cough, no fever, URI Medication list reviewed. Physical Exam See Flow Sheet Abd: soft, nontender, gravid Ext: edema: no lungs CTAB A/P 14w4d Estimated Date of Delivery: 06/16/24 declines aneuploidy screening f/u for anatomy scan cont. PNV and asa rx for tessalon perle for cough, call if fever or SOB or to ED. Alia Uribe M.D. documented in this encounter [facility] 12-21-2023 Instructions Loretta Sampson MA - 12/21/2023 10:14 AM EDT SEQUENTIAL SCREENINGS The [facility] offers sequential screenings for women who are interested in screenings for chromosomal abnormalities and certain defects during a . The sequential screen combines ultrasound and blood tests to determine the risk of chromosomal abnormalities, including Down's Syndrome (Trisomy 21) and Trisomy 18, as well as open neural tube defects including spina bifida. Ultrasound examination is performed between 11 weeks and 13 weeks gestational age. Blood tests are drawn after the ultrasound and again later in the between 15 and 21 weeks gestational age. Please let your physician know if you are interested in this testing. It will require an appointment with our mobile service rv technician. This is not an ultrasound performed by a physician in our office during a routine visit. SIGNS AND SYMPTOMS OF LABOR 1. Contractions every 10 minutes or more often 2. Clear, pink, or brownish fluid (water) leaking from vagina 3. Feeling that baby is pushing down, pressure 4. Low, dull backache 5. Cramps that feel like a period 6. Cramps with or without diarrhea If you notice any of the above symptoms, contact our office at [phone] and ask to speak with a nurse. After hours, you can call doctors registry at [phone] OR call [facility] at [phone] and ask to have the doctor insurance verification rep paged. If you consider this an emergency, dial 9--1 or go to your nearest emergency department. NEED HELP? Are you dealing with a violent or abusive relationship? Are you a victim of rape or sexual assult? Call [facility] ([place]) 24 hour Crisis Hotline: 289.129.9026 or 989-366-4115. MANUAL Your Guide to a Healthy manual is now on-line. Visit [email or web address] to download your free copy documented in this encounter [facility] 11-23-2023 Miscellaneous Notes OSKAR-S: Lucie Dent is a 33 year old female who presents at 10w4d with SANDIE:06/16/2024, by Last Menstrual Period for a routine visit. Denies headache, visual changes, chest pain, shortness of breath, vaginal bleeding, leakage of fluid, or dysuria. Feeling well, no complaints. O: See flow sheet Gen: No apparent distress Abd: nontender Unable to auscultate FHR via doppler. Limited bedside US confirms FHM/FHR A: ASSESSMENT/PLAN: 1. with history of section, antepartum 2. Asthma affecting in first trimester 3. Obesity in P: 1) PTL precautions reviewed and when to call 2) RTO for NT US 3) Declines aneuploidy screening today 4) Start ASA 81mg PO once daily at 12 weeks 5) Continue vaginal progesterone, d/c after 14 weeks 6) PN labs today Yuliya Jackson APRN.CNM documented in this encounter [facility] 11-23-2023 Instructions Jake Gregory MA - 11/23/2023 10:46 AM EDT SEQUENTIAL SCREENINGS The [facility] offers sequential screenings for women who are interested in screenings for chromosomal abnormalities and certain defects during a . The sequential screen combines ultrasound and blood tests to determine the risk of chromosomal abnormalities, including Down's Syndrome (Trisomy 21) and Trisomy 18, as well as open neural tube defects including spina bifida. Ultrasound examination is performed between 11 weeks and 13 weeks gestational age. Blood tests are drawn after the ultrasound and again later in the between 15 and 21 weeks gestational age. Please let your physician know if you are interested in this testing. It will require an appointment with our mobile service rv technician. This is not an ultrasound performed by a physician in our office during a routine visit. SIGNS AND SYMPTOMS OF LABOR 1. Contractions every 10 minutes or more often 2. Clear, pink, or brownish fluid (water) leaking from vagina 3. Feeling that baby is pushing down, pressure 4. Low, dull backache 5. Cramps that feel like a period 6. Cramps with or without diarrhea If you notice any of the above symptoms, contact our office at [phone] and ask to speak with a nurse. After hours, you can call doctors registry at [phone] OR call [facility] at [phone] and ask to have the doctor insurance verification rep paged. If you consider this an emergency, dial 9-1-1 or go to your nearest emergency department. NEED HELP? Are you dealing with a violent or abusive relationship? Are you a victim of rape or sexual assult? Call [facility] ([facility] 24 hour Crisis Hotline: 481.159.3157 or 484-343-1074. MANUAL Your Guide to a Healthy manual is now on-line. Visit [email or web address] to download your free copy documented in this encounter [facility] 11-12-2023 Miscellaneous Notes Patient notified. DEMARCO ROSALES RN Patient can keep an eye on things. It could be from intercourse. Just review bleeding precautions and have her keep scheduled appointment. Iker Bonilla APRN.CNM 9w0d Next visit 11/22. Called patient for further information. Has not occurred otherwise this . Had intercourse yesterday morning. States she has not had any further pink discharge or bleeding. Cramping has been intermittent and she feels more pressure pain than cramping. Please advise. Demarco Rosales RN documented in this encounter [facility] 11-08-2023 Miscellaneous Notes Requested Prescriptions Pending Prescriptions Disp Refills progesterone vaginal suppository 200 mg (CPD) 30 Suppository 0 Sig: Use 1 Suppository vaginally daily at bedtime. Unwrap and insert as directed. DEMARCO ROSALES RN documented in this encounter [facility] 10-30-2023 Miscellaneous Notes 1st risk assessment form submitted October 30, 2023. EDMUNDO Villarreal, RN OB Clinical Navigator [phone] documented in this encounter [facility] 10-26-2023 History of Present illness Narrative OB point of care ultrasound was performed. See imaging tab for details. 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 INITIAL OB ASSESSMENT HPI: Lucie is a 33 year old White Female here to establish Obstetrical Care. Patient's last menstrual period was 09/10/2023 (exact date). from OB Dating Form. Do you have regular periods/menstrual cycles? was planned. Letrozole and progesterone 200mg vaginal suppository at bedtime Complaints: No OB History T3 L3 SAB0 IAB0 Ectopic1 Multiple0 Live Births3 How many pregnancies have you had before? 7 Have you had a prior phan between 20w and 36w6d? Did you present in active spontaneous labor or have ruptured membranes, or advanced cervical dilation (greater than or equal to 4 cm) or effacement? No Did you have a previous baby with a GBS Infection? Please select all that apply for any prior : Did you have a partner with Herpes? Prior : yes x3 History of 4th degree laceration: No Patient's Risk Screening for delivery: MEDICAL/PSYCHOSOCIAL HISTORY: History of hemorrhage or bleeding concerns: No Thyroid Disease: No History of chronic hypertension: No History of pre-existing diabetes: No BMI 31.67 kg/(m^2) History of abnormal pap: Yes Prior treatment for cervical dysplasia: none. History of STDs: Tobacco use: No E-Cigarette/Vaping Use: Yes Caffeine use: Yes. Previously drinking 2 Monster Drinks per day and 2 caffeinated pop. Down to 1 pop per day now Drug use: No Alcohol use: No Multivitamin with Folic acid: Yes Religion or heritage: No Would refuse blood transfusion if medically necessary: ABO/RH(D) Date Value Ref Range Status 06/15/2021 O POSITIVE Final Social Needs: How often does this describe you? I don't have enough money to pay my bills: Within the past 12 months, have you worried that your food would run out before you had money to buy more? In the past 12 months, has lack of reliable transportation kept you from going to medical appointments or work, or from getting things needed for daily living? In the past 12 months, have you had any concerns about having a place to live, or about the condition or quality of your housing? Would you like more information on any of the following (please check all that apply)? none Social History: Do you have any history of depression, anxiety, PTSD, or other mood problems? Anxiety more than depression. Do you have a history of abuse or trauma that may impact your experience? Are you currently employed? [employer] Depression/Anxiety Screening: denies symptoms of depression. OB Depression and Anxiety Screening- This Encounter (since 10/25/2023) Over the past 2 weeks have you felt down, depressed, or hopeless? Negative Over the past two weeks, have you felt little interest or pleasure in doing things? Negative Feeling nervous, anxious or on edge 1-Several days Not being able to stop or control worrying 0-Not al all Anxiety Pre-Screening Total (If >/= 3 additional questions will be reviewed) 1 ACOG Recommended Screening: Screening for early gestational diabetes testing: Criteria for early testing requires elevated BMI plus one other risk factor: BMI 31.67 kg/(m^2) (risk factor if > than 25 or 23 in Americans) Additional risk factors: First-degree relative with diabetes and Have previously given to an infant weighing 4,000g (approximately 9 lb) or more She does meet ACOG criteria for early gestational DM screening. Screening for low dose aspirin use for the prevention of pre-eclampsia: Low dose aspirin should be considered if the patient has one high or two moderate risk factors: High risk factors: None Moderate risk ractors: Obesity (body mass index greater than 30) She does meet criteria for low dose ASA Marital Status:Co-habitating Partner: Name: Emmanuel Age: 26 Occupation: Manager Consumer Gender: Male History of STDs: None PAST MEDICAL HISTORY Diagnosis Date Anemia Anxiety Asthma Depression Ectopic 2021 History of depression PCOS (polycystic ovarian syndrome) 2019 depression PAST SURGICAL HISTORY Procedure Laterality Date DELIVERY ONLY , low transverse DELIVERY ONLY , low transverse DELIVERY ONLY , low transverse HSG LIG/TRNSXJ FLP TUBE ABDL/VAG APPR UNI/BI 2018 Tubal ligation SALPINGECTOMY 09/07/2021 RIGHT SIDE - ectopic at [facility] TONSILLECTOMY AND ADENOIDECTOMY HX UNL LAP TUBAL ANASTOMOSIS Bilateral Current Outpatient Medications Medication Sig Dispense Refill ferrous sulfate (IRON ORAL) Take by mouth. ergocalciferol, vitamin D2, (VITAMIN D2 ORAL) Take by mouth. progesterone vaginal suppository 200 mg (CPD) Use 1 Suppository vaginally daily at bedtime. Unwrap and insert as directed. 30 Suppository 0 albuterol HFA (PROVENTIL HFA, VENTOLIN HFA) 90 mcg/actuation inhaler Inhale 2 Puffs as instructed every 6 hours as needed for wheezing/shortness of breath. 1 Each 0 acetaminophen (TYLENOL EXTRA STRENGTH) 500 mg tablet Take 2 tablets by mouth every 8 hours as needed for pain. 48 tablet 0 PNV/iron/omega3/folic acid/min (PRENAT [id number] ORAL) Take by mouth. predniSONE (DELTASONE) 20 mg tablet Take 2 tablets by mouth once daily. 8 tablet 0 benzonatate (TESSALON PERLES) 100 mg capsule Take 2 capsules by mouth three times daily as needed for cough. 60 capsule 0 buspirone HCl (BUSPIRONE ORAL) Take by mouth. letrozole (FEMARA) 2.5 mg tablet Take 2 tablets by mouth as directed for 5 days. Start on cycle day 3 (where cycle day 1 is the first day of full flow). Continue until day 7 10 tablet 4 collagen/biotin/ascorbic acid (COLLAGEN 1500 PLUS C ORAL) Take by mouth. (Patient not taking: No sig reported) HYDROXYZINE HCL ORAL Take by mouth. PRN for anxiety (Patient not taking: No sig reported) sertraline HCl (ZOLOFT ORAL) Take 50 mg by mouth once daily. Pt is taking 1 and 1/2 tablets daily (Patient not taking: Reported on 10/26/2023) No current facility-administered medications for this visit. Allergies As of Date: 10/26/2023 Allergen Noted Reaction SULFA (SULFONAMIDE ANTIBIOTICS) 07/21/2020 Hives and Shortness of Breath Fully Assessed 10/26/2023 Does patient have penicillin allergy: No REVIEW OF SYSTEMS: GENERAL: Negative for: Fever or Chills HEENT: Negative for: Headache, Impaired Vision, Ringing in Ears, Nosebleeds NECK: Negative for: Swelling, Pain, Stiffness RESPIRATORY: Negative for: Cough, Shortness of breath, Wheezing.Last time used Inhaler 2022 when had bronchitis. Has not had exercise induced Asthma since was 24 yr. GASTROINTESTINAL: Negative for: Heartburn, Constipation, Diarrhea, Blood in stool, Vomiting MUSCULOSKELETAL: Negative for: Muscle or joint pain, stiffness, Joint swelling NEUROLOGIC/PSYCHIATRIC: Negative for: Weakness, Paralysis, Numbness, Tingling, Tremor, Anxiety, Depression, Memory loss States she previously taking Zoloft and Buspar mainly for Anxiety. SKIN: Negative for: Rash, Itching GENITOURINARY: Negative for: vaginal itching, vaginal discharge, hematuria or dysuria PHYSICAL EXAM: BP 110/76 Ht 5' 6.5 (1.69m) Wt 199 lb 3.2 oz (90.4kg) LMP 09/10/2023 BMI 31.67 kg/(m^2). GENERAL: pleasant in no apparent distress DERMATOLOGY: Normal, without lesions, non-icteric, and non-hirsute NECK: Supple, full range of motion, no adenopathy, and thyroid normal CHEST: Clear to auscultation, Normal inspiratory effort, Regular rate and rhythm, and No murmurs, clicks, rubs or gallops BREAST: soft, non-tender, symmetric, no dominant mass, normal nipple-areolar complex, no lymphadenopathy, and no nipple discharge ABDOMEN: soft, non-tender, and no masses NEURO: alert and oriented x3,exam grossly non-focal PELVIS: External genitalia normal without lesions. Perineal body intact. No vaginal or cervical lesions. Cervix closed. Uterus 6 week size. No adnexal masses or tenderness. Clinical Pelvimetry: Pelvimetry clinically assessed as adequate Limited OB ultrasound exam: single intrauterine , positive cardiac activity, and crown-rump length 6 wk 1 day OB Risk Screening: Completed, no positive findings documented. ASSESSMENT: 33 year old at 6w4d wks gestational age PLAN: 1) Patient oriented to practice. Discussed nutrition, folic acid supplementation, dietary guidelines, exercise, smoking, alcohol, caffeine, and drug use. Discussed routine OB labs including STD/HIV. Discussed how to access Your guide to a health and the [employer] Licensee. Discussed aneuploidy and carrier screening. Regarding aneuploidy screening, nuchal translucency/first trimester early anatomy ultrasound and NIPT were discussed. Regarding carrier screening, the myriad screen was discussed. The risks/benefits and limitations of NIPT/aneuploidy screening were reviewed including the potential for false negative and false positive results. We discussed the availability of professional-society guided carrier screening and reviewed the conditions screened and limitations of screening. The availability of genetic counseling was reviewed. Information on aneuploidy/carrier screening was provided. The patient chooses: No NIPT testing at this time Discussed hemoglobin electrophoresis. Patient: agreeable. Reviewed midwifery and safety investigator/cause analyst services that are available. ASSESSMENT/PLAN: 1. with uncertain dates in first trimester - ICD9: V22.1, ICD10: Z34.91 (primary diagnosis) - POC PRESS SERVICE READER ULTRASOUND - CBC - SYPHILIS TOTAL W/REFLEX - RUBELLA IGG AB - HEP B SURF AG SCRN - HEPATITIS C ANTIBODY IA WITH CONFIRMATION - HIV 1 2 COMBO(AG/AB),WITH REFLEX TO DIFFERENTIATION - TYPE + SCREEN - HGB A1C - GONORRHEA/CHLAMYDIA NAAT - URINE CULTURE - OBSTETRIC ULTRASOUND WHI - NUCHAL TRANSLUCENCY WHI - PICKLE PUMPER - HEMOGLOBIN EVALUATION CASCADE 2. Encounter for supervision of normal in multigravida - ICD9: V22.1, ICD10: Z34.80 - CBC - SYPHILIS TOTAL W/REFLEX - RUBELLA IGG AB - HEP B SURF AG SCRN - HEPATITIS C ANTIBODY IA WITH CONFIRMATION - HIV 1 2 COMBO(AG/AB),WITH REFLEX TO DIFFERENTIATION - TYPE + SCREEN - HGB A1C - GONORRHEA/CHLAMYDIA NAAT - URINE CULTURE - OBSTETRIC ULTRASOUND WHI - NUCHAL TRANSLUCENCY WHI - PICKLE PUMPER 3. Supervision of other high risk pregnancies, first trimester - ICD9: V23.89, ICD10: O09.891 Will start ASA 81 mg every day at 12 weeks. Progesterone 200 mg Vaginal Supp qhs to continue until 14 weeks. 4. Obesity in - ICD9: 649.10, ICD10: O99.210 BMI>30, Will do early Hemoglobin A1C or early GDM screening, 5. History of asthma - ICD9: V12.69, ICD10: Z87.09 Has Albuterol inhaler at home, hasn't used since last fall with Bronchitis. Will inform us if change/Asthma symptoms develop. 6. with history of section, antepartum - ICD9: 654.23, ICD10: O34.219 Plans repeat C/S 7. Family history of muscular dystrophy - ICD9: V17.2, ICD10: Z82.0 Does not desire Carrier Screening nor NIPT at this time. Agrees to NT at 12 weeks 8. Anxiety and depression - ICD9: 300.00, 311, ICD10: F41.9, F32.A Buspar and Zoloft discontinued . Risks/Benefits discussed with pt . Refill of Buspar provided. Discussed resuming Zoloft, best at this phase of rather than 3rd trimester. Can discuss further with psychiatric provider if to continue. 9. Follow up in 4 weeks or sooner prn. Silva ROSE TEACHING WEIGH AND CHARGE WORKER NOTE OF PERSONAL INVOLVEMENT IN CARE: I have interviewed the patient and updated the midwifery student's PFS history, and ROS as necessary. I have re-performed the HPI, Physical Examination, Assessment and Plan. Yuliya Jackson APRN.CNM documented in this encounter [facility] 10-26-2023 Pia Sorensen - 10/26/2023 12:16 PM EST Please select the following link to access the [facility] Your Guide to a Healthy . [email or web address] Sertraline (Zoloft ) August 11, 2019 This sheet talks about exposure to sertraline during and while . This information should not take the place of medical care and advice from your healthcare provider. What is sertraline? Sertraline is a medication that has been used to treat depression, obsessive-compulsive disorder, panic disorder, post-traumatic stress disorder, premenstrual dysphoric disorder (a severe form of premenstrual syndrome), and social phobia. Sertraline belongs to the class of antidepressants known as selective serotonin reuptake inhibitors (SSRIs). A brand name for sertraline is Zoloft . I take sertraline. Can it make it harder for me to get ? Studies have not been done to see if sertraline could make it harder for a woman to get . I just found out I am . Should I stop taking sertraline? You should speak to your healthcare providers before making any changes to this medication. For some women, the benefits of staying on an antidepressant during can outweigh the potential risks. If you plan to stop the medication, your healthcare provider may suggest that you slowly lower the dose instead of stopping all at once. Stopping this medication suddenly can cause some people to have withdrawal symptoms. In addition, some people may have a relapse of their symptoms if they stop this medication during . Does taking sertraline increase the chance for miscarriage? Miscarriage can occur in any . Use of sertraline and the chance of miscarriage has not been well-studied. One study found no significant differences in the rates of miscarriage in women who filled prescriptions for sertraline during the first 35 days of and those who stopped filling prescriptions between 3 and 12 months before to . Can taking sertraline in the first trimester increase the chance of defects? In every , a woman starts out with a 3-5% chance of having a baby with a defect. This is called her background risk. Sertraline is one of the better studied antidepressants during . There are reports of more than 10,000 pregnancies exposed to sertraline during the first trimester. A small number of studies have found associations between sertraline use during and defects, such as heart defects. However, the majority of studies have found that women taking sertraline during are not more likely to have a baby with a defect than women not taking sertraline. Overall, the available information does not suggest that sertraline increases the chance for defects above the 3-5% background risk. Could taking sertraline in the second or third trimester cause other complications? Some studies suggest that use of SSRIs, like sertraline, during can contribute to complications like low weight and premature delivery (delivery before 37 weeks of ). It is difficult to know whether these findings are due to the medicine, underlying depression, or other factors. Two studies have suggested that babies whose mothers take SSRIs like sertraline during the second half of the may be at an increased risk for pulmonary hypertension, a serious lung problem at . Other studies have not supported this association. Further study is needed but if any increased risk does exist, it is thought to be small. You should inform your associate brand manager and your baby s yarn packer that you are taking sertraline so that any extra care can be provided, if needed. Research has also shown that when depression is left untreated during , there could be an increased chance for complications. This makes it difficult to determine if it is the medication or the untreated depression that is increasing the chance for these problems. Please see our fact sheet on Depression at [email or web address] Does taking sertraline in cause long-term problems in behavior or learning for the baby? One study found that children whose mothers took SSRIs during scored lower on motor skill tests than other children. This was a very small study of 31 children; about half of these children were exposed to sertraline. Another small study evaluated behaviors in children ages 4-5 years old. This study found no difference in behavior between children whose mothers took sertraline or other SSRIs and those children whose mother did not take an SSRI. I need to take sertraline throughout my entire . Will it cause withdrawal symptoms in my baby? If you are taking sertraline at the time of delivery, your baby may have some difficulties for the first few days of life. Your baby may have jitteriness, vomiting, constant crying, increased muscle tone, irritability, altered sleep patterns, tremors, difficulty eating and regulating body temperature and some problems with breathing. While in most cases these effects are mild and go away on their own within 2 weeks of age, some babies may need to stay in a special care nursery for several days until the effects from sertraline and withdrawal go away. Not all babies exposed to sertraline will have these symptoms. Can I breastfeed while taking sertraline? When a mother takes sertraline, only a small amount of the drug passes into the breast milk. Very small amounts of sertraline and its breakdown product, norsertraline, are found in breast milk. Most published reports on sertraline and reported no harmful effects on the nursing . Long-term studies on infants exposed to sertraline in breast milk have not been conducted. If you are worried about symptoms your baby has, contact the child s healthcare provider. Be sure to talk to your healthcare provider about all of your questions. If a man takes sertraline, could it affect his fertility (ability to get partner ) or increase the chance of defects? An increased chance of defects or complications is not expected when the father of the baby takes sertraline. In general, exposures that fathers have are unlikely to increase risks to a . For more information, please see the [employer] fact sheet Paternal Exposures at https://mothertobaby.org/fact-she ets/woljaumq-okslxsxoy-ondczbxkm/ pdf/. Please click here to view references National Registry for Psychiatric Medications: There is a registry for women who take psychiatric medications, such as sertraline. For more information you can look at their website: https://womensmentalhealth.org/re search/pregnancyregistry/ documented in this encounter [facility] [place] 10-23-2023 Miscellaneous Notes Please see pt's mychart message and further advise.Judith Albert LPN documented in this encounter [facility] [place] 05-25-2023 Instructions Lilly Maldonado APRN.DONOR SUPPORT TECHNICIAN - 05/25/2023 1:55 PM EDT ASSESSMENT/PLAN: 1. Viral bronchitis - ICD9: 466.0, ICD10: J20.8 (primary diagnosis) - Discussed viral etiology and rationale for treatment. - Albuterol inhaler as needed - Prednisone burst - Rapid strep negative in office today - Symptomatic treatment with prn analgesia - Supportive care with fluids and rest - The patient may also use OTC decongestants prn, OTC cough and cold meds as needed, and warm salt water gargles, throat lozenges and/or OTC throat spray as needed. - Follow up in 3-5 days if symptoms persist or sooner if worsening of symptoms 2. Sore throat - ICD9: 462, ICD10: J02.9 - See above - STREP A MOLECULAR (POC) E Evelyne [employer] DIGITAL DESIGNER Student TEACHING PROVIDER (Physician/PA/TRUST EVALUATION SUPERVISOR) NOTE OF PERSONAL INVOLVEMENT IN CARE: I have personally seen and examined the patient and performed the medical decision-making components. I have reviewed the Advanced Practice Registered Nurse (TRUST EVALUATION SUPERVISOR) Student's documentation and verified the findings in the note as written. Any additions or changes are noted in bold/italics. Signature: Lilly Maldonado Date: 05/25/2023 Time: 1:54 PM ACUTE BRONCHITIS: You have acute bronchitis. This means the airway passages in your lungs are inflamed. Bronchitis may be caused by viruses or bacteria. Inhaling cigarette smoke will always make it worse. Exposure to irritating chemicals or second hand smoke as well as allergies can contribute to bronchitis. Repeat episodes of bronchitis may cause lifelong lung problems. Acute bronchitis is usually treated with rest, fluids, cough medicine, and possibly antibiotics or inhaled medicine to open up the small airways. It is very important that you avoid smoke and drink increased amounts of fluids. A cool air vaporizer can help thin bronchial secretions. This makes it easier to cough and clear your chest. If you are a cigarette smoker, consider using nicotine gum or skin patches to help you withdraw. Recovery from bronchitis is often slow, but you should start feeling better after 2-3 days of treatment. Please call your doctor or return here if you have any of the following symptoms: Increased fever, chills, or chest pain. Severe shortness of breath or bloody sputum. Do not improve after 3 days of proper treatment. documented in this encounter [facility] [place] 05-25-2023 History of Present illness Narrative This note was created using [employer]. Subjective Lucie Dent is a 33 year old female. Patient presents with two days of low fever (100f), cough, sore throat, congestion, and chest tightness. She denies nausea or vomiting. She has taken mucinex, ibuprofen, and used her child's albuterol nebulizer treatment at home with minimal relief of symptoms. She took a home COVID test this morning that resulted negative. The history is provided by the patient. Cough Associated symptoms include headaches, sore throat and shortness of breath. Pertinent negatives include no chest pain, no chills, no ear pain and no wheezing. Review of Systems Constitutional: Positive for fatigue and fever. Negative for chills. HENT: Positive for congestion, sinus pressure, sinus pain and sore throat. Negative for ear pain. Respiratory: Positive for cough, chest tightness and shortness of breath. Negative for wheezing. Cardiovascular: Negative for chest pain. Gastrointestinal: Positive for diarrhea. Negative for abdominal pain, nausea and vomiting. Neurological: Positive for headaches. All other systems reviewed and are negative. Objective BP 138/90 Pulse 116 Temp 37.3 C (99.2 F) Resp 20 Wt 87.7 kg (193 lb 6.4 oz) LMP 05/11/2023 (Exact Date) SpO2 97% BMI 31.22 kg/m PAST MEDICAL HISTORY Diagnosis Date Anemia Anxiety Asthma Depression Ectopic 2021 PCOS (polycystic ovarian syndrome) 2019 depression PAST SURGICAL HISTORY Procedure Laterality Date DELIVERY ONLY , low transverse DELIVERY ONLY , low transverse DELIVERY ONLY , low transverse HSG LIG/TRNSXJ FLP TUBE ABDL/VAG APPR UNI/BI 2018 Tubal ligation SALPINGECTOMY 09/07/2021 RIGHT SIDE - ectopic at [facility] TONSILLECTOMY AND ADENOIDECTOMY HX UNL LAP TUBAL ANASTOMOSIS Bilateral ALLERGIES Sulfa (Sulfonamide Antibiotics) MEDICATIONS buspirone HCl (BUSPIRONE ORAL) Take by mouth. letrozole (FEMARA) 2.5 mg tablet Take 2 tablets by mouth as directed for 5 days. Start on cycle day 3 (where cycle day 1 is the first day of full flow). Continue until day 7 PNV/iron/omega3/folic acid/min (PRENAT [id number]-[id number] ORAL) Take by mouth. sertraline HCl (ZOLOFT ORAL) Take 50 mg by mouth once daily. Pt is taking 1 and 1/2 tablets daily collagen/biotin/ascorbic acid (COLLAGEN 1500 PLUS C ORAL) Take by mouth. (Patient not taking: No sig reported) acetaminophen (TYLENOL EXTRA STRENGTH) 500 mg tablet Take 2 tablets by mouth every 8 hours as needed for pain. HYDROXYZINE HCL ORAL Take by mouth. PRN for anxiety (Patient not taking: No sig reported) FAMILY HISTORY Problem Relation Age of Onset Fibromyalgia Mother other (Endometrosis) Mother other (Rheumatoid Arthritis) Mother Anxiety disorder Mother Depression Mother No Known Problems Father no relationship Asthma Sister Depression Brother Asthma Brother Hypertension Brother Asthma Maternal Grandmother Heart Maternal Grandmother Systemic Lupus Erythematosus Maternal Grandmother Diabetes Maternal Grandmother No Known Problems Maternal Grandfather No Known Problems Daughter No Known Problems Son No Known Problems Son Anesthesia Problems No Family History Social History Tobacco Use Smoking status: Former Smokeless tobacco: Never Tobacco comments: Quit 2020 Vaping Use Vaping Use: current everyday user Substances: Nicotine (OCCASIONAL) Substance Use Topics Alcohol use: Yes Comment: Socially Drug use: Never Physical Exam Vitals reviewed. Constitutional: General: She is not in acute distress. Appearance: Normal appearance. She is normal weight. She is ill-appearing. She is not toxic-appearing. HENT: Right Ear: Tympanic membrane, ear canal and external ear normal. No tenderness. There is no impacted cerumen. Tympanic membrane is not perforated, erythematous, retracted or bulging. Left Ear: Tympanic membrane, ear canal and external ear normal. No tenderness. There is no impacted cerumen. Tympanic membrane is not perforated, erythematous, retracted or bulging. Nose: Congestion present. Mouth/Throat: Mouth: Mucous membranes are moist. Pharynx: Oropharynx is clear. Uvula midline. Posterior oropharyngeal erythema present. No pharyngeal swelling, oropharyngeal exudate or uvula swelling. Cardiovascular: Rate and Rhythm: Regular rhythm. Tachycardia present. Pulmonary: Effort: Pulmonary effort is normal. No respiratory distress. Breath sounds: Normal breath sounds. No wheezing. Neurological: General: No focal deficit present. Mental Status: She is alert and oriented to person, place, and time. Mental status is at baseline. Psychiatric: Mood and Affect: Mood normal. Behavior: Behavior normal. Thought Content: Thought content normal. Judgment: Judgment normal. Assessment and Plan ASSESSMENT/PLAN: 1. Viral bronchitis - ICD9: 466.0, ICD10: J20.8 (primary diagnosis) - Discussed viral etiology and rationale for treatment. - Albuterol inhaler as needed - Prednisone burst - Rapid strep negative in office today - Symptomatic treatment with prn analgesia - Supportive care with fluids and rest - The patient may also use OTC decongestants prn, OTC cough and cold meds as needed, and warm salt water gargles, throat lozenges and/or OTC throat spray as needed. - Follow up in 3-5 days if symptoms persist or sooner if worsening of symptoms 2. Sore throat - ICD9: 462, ICD10: J02.9 - See above - STREP A MOLECULAR (POC) E Evelyne [employer] DIGITAL DESIGN[employer] Student TEACHING PROVIDER (Physician/PA/TRUST EVALUATION SUPERVISOR) NOTE OF PERSONAL INVOLVEMENT IN CARE: I have personally seen and examined the patient and performed the medical decision-making components. I have reviewed the Advanced Practice Registered Nurse (TRUST EVALUATION SUPERVISOR) Student's documentation and verified the findings in the note as written. Any additions or changes are noted in bold/italics. Signature: Lilly Maldonado Date: 05/25/2023 Time: 1:54 PM documented in this encounter [facility] [place] 05-22-2023 Miscellaneous Notes Images from the original note were not included. SIS patient from 05/21/2023 wanted to know the results of the SIS images and if it is okay to start having intercourse right away with her . She said that Dr. Rodriguez said to ask during SIS if she can start trying to conceive. Sent Epic chat to Dr. Martin to see if results were okay. Dr. Martin stated okay for patient to proceed with trying. Called patient on 05/22/23 and made her aware. Zina Monaco APRN.CNP May 22, 2023 8:55 AM documented in this encounter [facility] [place] 05-21-2023 History of Present illness Narrative Lucie Dent is a 33 year old here for SIS. Referred by: Jamie Rodriguez [id number] [facility] [id number] Chief Complaint: Uterine cavity evaluation Endometrial Biopsy: No Hormonal therapy: No. LMP: Patient's last menstrual period was 04/12/2023 (within days). Cycles: PERIOD REGULARITY: regular q 32-36 days Contraception: none HCG: negative UNIVERSAL PROTOCOL / SAFETY CHECKLIST Procedure to be Performed: SIS procedure Sign In: A Moment of CARE was completed. Personnel directly involved with the procedure wore the appropriate PPE (Personal Protective Equipment). No special equipment needed. Patient/Surrogate Stated/Verified: PATIENT VERIFIED(optional for EMERGENT procedures): Patient name, Date of , Relevant allergies, and The intended procedure Time Out Communication: Intended patient and procedure match the source documents. Consent documented and matches the intended procedure. Sign Out: SIGN OUT (optional for EMERGENT procedures): No specimen collected. All instruments, equipment, possible retained foreign bodies accounted for. Post-procedure follow-up management communicated and Plan of Care Visit completed when applicable. Lena Castro LPN PROCEDURE: EXTERNAL GENITALIA: Normal in appearance without lesions VAGINA: Normal in appearance without lesions Speculum placed into the vagina with excellent visualization of the cervix. Cervix cleaned with Hibiclens. SIS catheter inserted into the uterus without difficulty. Speculum removed and 40 mL sterile saline injected into the uterine cavity under ultrasound guidance. Procedure Summary: Patient tolerated procedure well. See ViewPoint for procedure results. Zina Monaco APRN.DONOR SUPPORT TECHNICIAN documented in this encounter [facility] [place] 05-02-2023 History of Present illness Narrative Lucie Dent is a 33 year old G 6 P 3 Ab 3 She presents with follow up virtually Patient states periods are very heavy now and cramping is severe Patient is bed ridden usually the first 2 days Patient takes 1000 mg tylenol every 4 hours and motrin 600 mg every 6 hours and it does not help the cramps The heavy flow is a change - she had similar heavy periods as a teenager but has not had it since started childbearing 2009 SAB 6 weeks 2010 C section boy fullt erm 2014 C Section boy full term 2017 C Section girl full term 2020 Ectopic right salpingectomy 2021 HSG showed patent left tube 2022 SAB 8 weeks She initially refused a D&C and passed the spontaneously at home She reports worsening of her anxiety since I visited her last She just had regimen change last week Last Office Visit 06-30-21 Surgery performed: Robotic assisted laparoscopic tubal reanastomosis and chromopertubation Surgical Pathology None Assessment and plan: Counseled again about ectopic risk and need for close follow up /monitoring with primary OB or our clinic After 1 normal cycle, ok to start trying HSG if not in 6 months of trying Post op check Menstrual Hx: Menarche: 15 Cycle length: 32-36 days Duration: 3-5 days Flow: medium Other: cramps Past Medical Hx: PAST MEDICAL HISTORY Diagnosis Date Anemia Anxiety Asthma Depression Ectopic 2021 PCOS (polycystic ovarian syndrome) 2019 depression Past Surgical Hx: PAST SURGICAL HISTORY Procedure Laterality Date DELIVERY ONLY , low transverse DELIVERY ONLY , low transverse DELIVERY ONLY , low transverse HSG LIG/TRNSXJ FLP TUBE ABDL/VAG APPR UNI/BI 2018 Tubal ligation SALPINGECTOMY 09/07/2021 RIGHT SIDE - ectopic at [facility] TONSILLECTOMY AND ADENOIDECTOMY HX UNL LAP TUBAL ANASTOMOSIS Bilateral Social History Tobacco Use Smoking status: Former Smokeless tobacco: Never Tobacco comments: quit 3 months ago Vaping Use Vaping Use: current everyday user Substances: Nicotine (OCCASIONAL) Substance Use Topics Alcohol use: Not Currently Comment: Socially Drug use: Never Review of Systems: General: No weight loss, malaise or fevers Respiratory: No cough, hemoptysis, asthma, recent chest infection, wheezing Cardiovascular: No history of chest pain, palpitation, orthopnea, cyanosis, pedal edema Gastrointestinal: No blood in stool, pain with BM, tarry stool, persistent diarrhea or constipation Genitourinary: negative Endocrine: No history of thyroid disorder, diabetes, cold intolerance, heat intolerance, polydypsia Musculoskeletal: Negative I have reviewed the above past medical history and review of systems as completed by my RN. Assessment- History of miscarriage Abnormal uterine bleeding Plan- Letrozole 5mg CD3-7 SIS Follow up in 6 months if not I spent a total of 30 minutes on the date of the service which included preparing to see the patient, [id number] patient care, completing clinical documentation, counseling and educating the patient/family/caregiver, and ordering medications, tests, or procedures. Virtual / zoom Jamie Rodriguez MD documented in this encounter [facility] [place] 10-30-2022 History of Present illness Narrative Lucie Dent is a 32 year old who presents with 1st trimester bleeding. Patient's last menstrual period was 08/20/2022 (exact date). Did not get follow up quant level but will get done today. Gestational age by LMP: 8w5d by LMP today Rh Positive Vaginal bleedin10/25/22 and 10/26/22 started having clots, tissue, bleeding, cramping. Resolved after that and then on and off since then, small amount. Cramping: Yes, only mild HCG: Component Latest Ref Rng & Units 09/21/2022 09/25/2022 09/27/2022 10/23/2022 hCG Quantitative, Blood <5.0 mIU/mL 140.7 (H) 1,115.0 (H) 2,412.0 (H) 14,974.0 (H) Imaging: Limited bedside US today shows no gestational sac or pole. Small amount of tissue remains Plan: HCG today and in one week as long as level decreasing. Early failure was discussed with the patient. She was counseled regarding expectant, medical and surgical management options. Risks and benefits of each were discussed. Bleeding precautions reviewed. Due to US results today, patient is ok with expectant management. Reviewed when to call. Emotional support provided. Offered grieving package but declines. Yuliya Jackson APRN.CNM documented in this encounter [facility] [place] 10-30-2022 Miscellaneous Notes documented in this encounter [facility] [place] 10-30-2022 Instructions Yuliya Jackson APRN.CNM - 10/30/2022 9:14 AM EST SEQUENTIAL SCREENINGS The [facility] [place] offers sequential screenings for women who are interested in screenings for chromosomal abnormalities and certain defects during a . The sequential screen combines ultrasound and blood tests to determine the risk of chromosomal abnormalities, including Down's Syndrome (Trisomy 21) and Trisomy 18, as well as open neural tube defects including spina bifida. Ultrasound examination is performed between 11 weeks and 13 weeks gestational age. Blood tests are drawn after the ultrasound and again later in the between 15 and 21 weeks gestational age. Please let your physician know if you are interested in this testing. It will require an appointment with our mobile service rv technician. This is not an ultrasound performed by a physician in our office during a routine visit. SIGNS AND SYMPTOMS OF LABOR 1. Contractions every 10 minutes or more often 2. Clear, pink, or brownish fluid (water) leaking from vagina 3. Feeling that baby is pushing down, pressure 4. Low, dull backache 5. Cramps that feel like a period 6. Cramps with or without diarrhea If you notice any of the above symptoms, contact our office at [phone] and ask to speak with a nurse. After hours, you can call doctors registry at [phone] OR call [facility] at [phone] and ask to have the doctor insurance verification rep paged. If you consider this an emergency, dial 9--1 or go to your nearest emergency department. NEED HELP? Are you dealing with a violent or abusive relationship? Are you a victim of rape or sexual assult? Call [facility] ([place]) 24 hour Crisis Hotline: 343.209.2690 or 686-935-3803. MANUAL Your Guide to a Healthy manual is now on-line. Visit [email or web address]/HealthyPregna ncyGuide to download your free copy Bleeding in Early Many women experience bleeding in the first trimester. This can be part of the normal process of establishing the , commonly called implantation bleeding or can occur if there is a collection of blood in the uterus (your doctor may refer to this as a subchorionic hemorrhage or subchorionic hematoma). Bleeding can also happen due to infection in the vagina or benign overgrowths on the cervix called polyps. Most of these situations will go on to be normal pregnancies. Bleeding can also occur with a miscarriage or an ectopic ( outside of the uterus, most commonly in the fallopian tube). In order to tell if the is normal or not, your doctor may order lab tests or an ultrasound. Blood work is usually done to check your HCG level, which is the hormone. HCG increases in a predictable pattern in early . If the level is decreasing it means the has stopped developing. Your doctor will also order a blood type test if your blood type is unknown. If your blood type is negative you will receive an injection of Rhogam to prevent sensitization for future pregnancies. An ultrasound may be ordered to see if the is in the correct location or to check if the fetus has a heartbeat. Whether an ultrasound will be helpful or not depends on how far along you are in the . If you are diagnosed with a miscarriage (also called a spontaneous ), there are several options for treatment. You may choose to wait and see if your body will pass the on its own, which is similar to a heavy period with cramping. Misoprostol is a medication that can help speed up the process and is given either in the vagina or by mouth. Surgical management for miscarriage is called a D&C and involves your doctor emptying out the uterus with suction. This is done under sedation in the operating room. If at any time you experience heavy vaginal bleeding (soaking through a pad in an hour or less), severe abdominal pain, lightheadedness or shortness of breath you need to call your doctor immediately or go the the emergency room. We understand this is a difficult time for you and your family and will do our best to answer all of your questions and concerns. documented in this encounter [facility] [place] 10-23-2022 Miscellaneous Notes S: Lucie Dent is a 32 year old female at 7.5 weeks gestation who presents as an add on for spotting and mild cramping. Started spotting dark brown and some bright red blood on Sunday. Continues to have spotting today after wiping. Reports mild cramping has occurred since beginning of . Rates pain 2/3 out of 10 on pain scale. No recent intercourse. Has been on pelvic rest. Viability ultrasound completed on 10/12/22. TVUS- IUP with no cardiac activity- measuring 6.[address] Candelaria to room for verification O: See flow sheet Abd: Gravid, nontender ASSESSMENT/PLAN: 1. 7 weeks gestation of - ICD9: V22.2, ICD10: Z3A.01 (primary diagnosis) 2. Spotting complicating , first trimester - ICD9: 649.53, ICD10: O26.851 3. Missed - ICD9: 632, ICD10: O02.1 Plan: 1- HCG level today and repeat 2- Reviewed ultrasound findings with patient and . Discussed options of watchful waiting, medical and surgical intervention. Patient desires watchful waiting at this time. 3- Support provided 4- RH + 5- Reviewed bleeding precautions RTO - next week for follow up ultrasound and HCG level Iker Bonilla APRN.CNM documented in this encounter [facility] [place] 10-23-2022 Instructions Jenelle López LPN - 10/23/2022 10:07 AM EST SEQUENTIAL SCREENINGS The [facility] [place] offers sequential screenings for women who are interested in screenings for chromosomal abnormalities and certain defects during a . The sequential screen combines ultrasound and blood tests to determine the risk of chromosomal abnormalities, including Down's Syndrome (Trisomy 21) and Trisomy 18, as well as open neural tube defects including spina bifida. Ultrasound examination is performed between 11 weeks and 13 weeks gestational age. Blood tests are drawn after the ultrasound and again later in the between 15 and 21 weeks gestational age. Please let your physician know if you are interested in this testing. It will require an appointment with our mobile service rv technician. This is not an ultrasound performed by a physician in our office during a routine visit. SIGNS AND SYMPTOMS OF LABOR 1. Contractions every 10 minutes or more often 2. Clear, pink, or brownish fluid (water) leaking from vagina 3. Feeling that baby is pushing down, pressure 4. Low, dull backache 5. Cramps that feel like a period 6. Cramps with or without diarrhea If you notice any of the above symptoms, contact our office at [phone] and ask to speak with a nurse. After hours, you can call doctors registry at [phone] OR call [facility] at [phone] and ask to have the doctor insurance verification rep paged. If you consider this an emergency, dial 9-1-1 or go to your nearest emergency department. NEED HELP? Are you dealing with a violent or abusive relationship? Are you a victim of rape or sexual assult? Call [facility] ([place]) 24 hour Crisis Hotline: 156.113.6429 or 976-245-0134. MANUAL Your Guide to a Healthy manual is now on-line. Visit [email or web address] to download your free copy documented in this encounter [facility] 10-16-2022 Miscellaneous Notes Patient notified. Madelin Cadena RN Avoid intercourse for 7 days. If increased bleeding or pain to call and be seen for appointment. Yuliya Jackson APRN.CNM Patient 6w5d calling with concerns of vaginal bleeding immediately after intercourse today. Patient states bleeding is almost completely done. Denies any pain or cramping. Reassurance given. Next appointment on 10/30. Mildred Michele RN documented in this encounter [facility] 10-16-2022 Miscellaneous Notes Anatomy ultrasound reviewed. No abnormalities identified. Follow up as clinically indicated. Please place copy in ob chart. Alia Uribe MD documented in this encounter [facility] 10-04-2022 Miscellaneous Notes Initial risk assessment form submitted 10/04/2022. Fern Browning RN documented in this encounter [facility] 10-02-2022 History of Present illness Narrative # 1 - Date: 06/30/11, Sex: Male, Weight: 9 lb 1 oz (4.111 kg), GA: 41w0d, Delivery: , Low Transverse, Apgar1: None, Apgar5: None, Living: Living, Comments: Induced , FTP beyond 4 cm, CPD,800cc # 2 - Date: 02/02/15, Sex: Male, Weight: 10 lb 3 oz (4.621 kg), GA: 39w0d, Delivery: , Other, Apgar1: None, Apgar5: None, Living: Living, Comments: RCS # 3 - Date: 11/29/17, Sex: Female, Weight: 8 lb 4 oz (3.742 kg), GA: 39w0d, Delivery: , Other, Apgar1: None, Apgar5: None, Living: Living, Comments: Repeat planned C [place], BTL # 4 - Date: 09/07/21, Sex: None, Weight: None, GA: None, Delivery: None, Apgar1: None, Apgar5: None, Living: None, Comments: right fallopian tube # 5 - Date: None, Sex: None, Weight: None, GA: None, Delivery: None, Apgar1: None, Apgar5: None, Living: None, Comments: None documented in this encounter [facility] 10-02-2022 Miscellaneous Notes Patient here with fianc . Patient has had 3 C-sections. First was for CPD and failure to progress. Patient had a tubal reversal by Dr. Ayala June 2021. Patient is 5 para 3 with a history of ectopic patient states that she had vaginal bleeding on September 19 that lasted for 4 days. No bleeding since then denies any pain. Patient had quantitative hCGs done. Appointment with Dr. Uribe today. Patient's first child weighed 9 pounds 1 ounce at and second child 10 pounds 3 ounces at . Patient has a half cousin with muscular dystrophy. Patient states she has not had any genetic testing in the past. Considering genetic carrier screening testing. Contact information for [facility] rep given to patient to check on insurance coverage. Pt has a history of anxiety/depression diagnosed in 2018 . She has been off medication since August. She believes she is doing well off medication. She sees a counselor in [place] at [facility]. She has a history of depression after the of her last child.. Discussed increased risks of depression during and and importance of reporting the development or worsening of symptoms should they occur. Pt denies ever having any suicidal thoughts or tendencies or thoughts of hurting others. Patient declines aneuploidy screening.Camron Valdes RN documented in this encounter [facility] 10-02-2022 History of Present illness Narrative Images from the original note were not included. INITIAL OB ASSESSMENT OB Provider: Alia Uribe M.D. HPI: Lucie Dent is a 32 year old female here to establish Obstetrical Care. Patient's last menstrual period was 08/20/2022 (exact date). from OB Dating Form. Cycle length: vary in number days H/o being on zoloft scheduled and hydroxyzine prn. Off since and doing well. PCP prescribed that. Complaints: a little cramping and occas nausea was planned. OB History T3 L3 SAB0 IAB0 Ectopic1 Multiple0 Live Births3 Prior : yes x 3 History of 4th degree laceration: No Patient's Risk Screening for delivery: History of abnormal pap: No Prior treatment for cervical dysplasia: none. 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 No Marital Status:Engaged Partner: Name: Emmanuel Age: 25 Occupation: [employer] employee Gender: male History of STDs: None PAST MEDICAL HISTORY Diagnosis Date Anemia Anxiety Asthma Depression Ectopic 2021 PCOS (polycystic ovarian syndrome) 2019 depression PAST SURGICAL HISTORY Procedure Laterality Date DELIVERY ONLY , low transverse DELIVERY ONLY , low transverse DELIVERY ONLY , low transverse HSG LIG/TRNSXJ FLP TUBE ABDL/VAG APPR UNI/BI 2018 Tubal ligation SALPINGECTOMY 09/07/2021 RIGHT SIDE - ectopic at [facility] TONSILLECTOMY AND ADENOIDECTOMY HX UNL LAP TUBAL ANASTOMOSIS Bilateral Current Outpatient Medications on File Prior to Visit Medication Sig collagen/biotin/ascorbic acid (COLLAGEN 1500 PLUS C ORAL) Take by mouth. (Patient not taking: Reported on 10/02/2022) acetaminophen (TYLENOL EXTRA STRENGTH) 500 mg tablet Take 2 tablets by mouth every 8 hours as needed for pain. HYDROXYZINE HCL ORAL Take by mouth. PRN for anxiety (Patient not taking: Reported on 10/02/2022) PNV/iron/omega3/folic acid/min (PRENAT [id number] ORAL) Take by mouth. sertraline HCl (ZOLOFT ORAL) Take 50 mg by mouth once daily. Pt is taking 1 and 1/2 tablets daily (Patient not taking: Reported on 10/02/2022) No current facility-administered medications on file prior to visit. Review of Systems: GENERAL: Negative for: Fever or Chills HEENT: Negative for: Headache, Impaired Vision, Ringing in Ears, Nosebleeds NECK: Negative for: Swelling, Pain, Stiffness RESPIRATORY: Negative for: Cough, Shortness of breath, Wheezing GASTROINTESTINAL: Negative for: Constipation, Diarrhea, Blood in stool, Vomiting and Positive for: Heartburn some before MUSCULOSKELETAL: Negative for: Muscle or joint pain, stiffness, Joint swelling NEUROLOGIC/PSYCHIATRIC: Negative for: Weakness, Paralysis, Numbness, Tingling, Tremor, Anxiety, Depression, Memory loss SKIN: Negative for: Rash, Itching GENITOURINARY: Negative for: vaginal itching, vaginal discharge, hematuria or dysuria PHYSICAL EXAM: BP 112/64 Ht 5' 7.25 (1.71m) Wt 198 lb (89.8kg) LMP 08/20/2022 BMI 30.79 kg/(m^2). GENERAL: pleasant female in no apparent distress DERMATOLOGY: Normal, without lesions, non-icteric, and non-hirsute NECK: Supple, full range of motion, no adenopathy, and thyroid normal CHEST: Normal inspiratory effort BREAST: soft, non-tender, symmetric, no dominant mass, normal nipple-areolar complex, no lymphadenopathy, and no nipple discharge ABDOMEN: soft, non-tender, and no masses NEURO: alert and oriented x3,exam grossly non-focal PELVIS: External genitalia normal without lesions. Perineal body intact. No vaginal or cervical lesions. Cervix closed. Uterus 6 week size. No adnexal masses or tenderness. Clinical Pelvimetry: N/a Limited OB ultrasound exam: single intrauterine and Gest sac is 80 mm and small yolk sac w/ possible embryonic pole noted. Too small to detect cardiac activity OB Risk Screening: Completed, no positive findings documented. SACHA Dent was given the 4P's screening tool. Lucie answered as follows: OB Opioid Screening - Last Recorded (since 01/05/2022) Did any of your parents have a problem with alcohol or other drug use? Yes father-ETOH and Drugs Does your partner have a problem with alcohol or other drug use? No In the past, have you had difficulties in your life because of alcohol or other drugs, including prescription medications? No In the past month have you drunk any alcohol or used other drugs? No Are you taking medication for pain during the either prescribed or not? No Based on the screen and further questions, she is considered at Low risk due to:No past or current use. Positive reinforcement of current behavior. Alia Uribe MD ASSESSMENT: 32 year old at 6w1d wks gestational age by LMP PLAN: 1) Patient oriented to practice. Discussed nutrition, folic acid supplementation, dietary guidelines, exercise, smoking, alcohol, caffeine, and drug use. Discussed routine OB labs including STD/HIV. Discussed aneuploidy screening options including serum screening and nuchal translucency. Patient declines all aneuploidy screening. CF carrier screening discussed and declined. 2) Plans repeat c/s 3) repeat US next week for dates. Follow up in 4 weeks or sooner prn. Alia Uribe MD documented in this encounter [facility] 10-02-2022 Instructions Loretta Sampson Ma - 10/02/2022 2:20 PM EST Please select the following link to access the [facility] Your Guide to a Healthy . [email or web address] documented in this encounter [facility] 09-21-2022 Miscellaneous Notes Pt notified and will have levels done this morning. Judith Albert LPN progesterone ordered. Alia Uribe MD Patient is on her way in for 2nd hcg quant today. She continues to have spotting and cramping. States her infertility doctor who did her tub reversal told her to ask if she can get a progesterone level too today. Patient will be here around 9am. Sent to RR who ordered original quants. Madelin Cadena RN documented in this encounter [facility] [place] [facility] 09-18-2022 Miscellaneous Notes Patient notified. Will have HCG Quant done on 09/19 and 09/21. Fern Chadwick RN An early congratulations. ORder for quants in, lets see where they are and decide from there when to do an US. Call with any severe pain or heavy bleeding. Alia Uribe MD Patient called and PNOB and New OB scheduled. Patient states she was told to call in as soon as she had a Positive home test due to history of ectopic and right salpingectomy on 09/07/21. Was told she would need blood work and early ultrasound. Patient did have vaginal bleeding on 09/15 after intercourse. Today bleeding is brown and only present with wiping. Abdominal cramping mild and intermittent, rates at 09/19. Patient also has history of tubal reversal completed at [facility] 06/20[facility]. Can you address. Does patient need blood work now and early ultrasound. Mildred Michele RN Call placed to patient to triage for new OB appt. Name and identified. LMP? Aug 20 2022. +HPT Sunday am. BRB Sunday night 09/15/2021 during intercourse, with wiping and some on underwear. Resolved next day. O+ per T&S from 2020. PNV? yes Cats? No - 6 ferrets, partner changes bedding. Pelvic pain? No, aside from mild cramping Vaginal bleeding? Yes, see above Precautions for both discussed with patient understanding. Any issues that can effect the ? No, aside from ectopic hx and tubal removal last year. Office patient wishes to establish care to? Otis Hernadez. Patient wants to be seen jacklyn for a missed menses appt - to be proactive and make sure this is an intrauterine . Will forward this encounter to the schedulers in this office. ----- Message from Scott Prado sent at 09/18/2022 10:50 AM EST ----- Regarding: NEW OB/ [facility] Delivery/ Elenita Jorgensen MD Patient has been identified by name and Date of : Yes Patient: Lucie Dent Date of : 1990 Provider for this encounter : Elenita Jorgensen MD. Maryjo Anguiano CNP Reason for call: Triage Was an appointment scheduled: No Reason for requesting visit (RFV/signs and symptoms/diagnosis) : Tubal reversal in 06/2022 tube left Person calling: self Return call to: self Call patient at: on cell [phone] (home) [phone] (cell) Payor: [place] [employer]ICA[employer] / Plan: [facility] MEDICAID / Product Type: Medicaid / Scott Prado documented in this encounter [facility] 03-16-2022 Miscellaneous Notes I think it is reasonable to wait a few months if she is OK with that. If patient prefers she can schedule a visit here or with an infertility specialist if she prefers. Elenita Jorgensen MD documented in this encounter [facility] 01-17-2022 Miscellaneous Notes Addended by: THERESA TO on: 01/17/2022 04:28 PM Modules accepted: Orders Called the patient she verified her name and date of . Patient had tubal reversal in Jun 2021 Patient had ectopic in Aug 2021 and lost right tube. Patient wants hsg done I advised we will place orders Patient started her period jan 11 2022 Routing to Non [place] ivf Pool Yin Rouse RN January 17, 2022 4:01 PM Assessment and plan: Counseled again about ectopic risk and need for close follow up /monitoring with primary OB or our clinic After 1 normal cycle, ok to start trying HSG if not in 6 months of trying Post op check Jamie Rodriguez MD June 30, 2021 9:48 AM Patient states cob sawyer recommend hsg patient has seen Dr. Rodriguez inquiring about doing an hsg, patient lost right tube. Please follow up with patient. documented in this encounter [facility] 01-17-2022 Miscellaneous Notes Patient needs hsg at noon Please send to finance if not covered patient will pay Routing to Yandy oRuse RN January 17, 2022 4:09 PM documented in this encounter [facility] 06-10-2021 History of Present illness Narrative Pt. presents for fertility consultHx of 4 term pregnancies and tubal ligationPt. subsequently had tubal ligation reversal 06/2021, had ectopic 08/30 and lost R tube. Pt. and partner unable to conceive since that time.Current partner has not fathered a child and has not had semen analysisPt. reports +L HSG since procedurePt. also reports hx of PCOS dx prior to 100 lb weight loss, pt. notes she has had monthly menses since weight loss which she largely attributes to keto dietPt. sees + LH surge monthly and times intercourse accordinglyPt. reports occasional spotting following intercourse [facility] Work Phone: Evaluation note Diagnosis History of bilateral tubal ligation- Primary Hx of ectopic Personal history of other genital system and obstetric disorders [facility] Diagnosis Hx of ectopic Personal history of other genital system and obstetric disorders documented [facility] Diagnosis Encounter for fertility planning- Primary Other specified procreative management documented in this [facility]* Diagnosis , location unknown- Primary state, incidental in first trimester with history of ectopic [facility] Diagnosis Threatened - Primary Threatened , unspecified as to episode of care [facility] Diagnosis Supervision of high risk , antepartum- Primary with history of section, antepartum History of reversal of tubal ligation with history of ectopic , antepartum History of macrosomia in infant in prior , currently with other poor obstetric history Family history of muscular dystrophy Family history of other neurological diseases History of depression Personal history of other mental disorder [facility] Diagnosis Early stage of - Primary state, incidental [facility] Diagnosis NO SHOW- Primary Early stage of state, incidental [facility]* Diagnosis 7 weeks gestation of - Primary state, incidental Spotting complicating , first trimester Missed [facility]* Diagnosis Spontaneous - Primary Unspecified spontaneous without mention of complication [facility] Diagnosis History of miscarriage- Primary Personal history of other genital system and obstetric disorders Female infertility Female infertility of unspecified origin Abnormal uterine bleeding Unspecified disorder of menstruation and other abnormal bleeding from female genital tract documented [facility] Diagnosis History of miscarriage- Primary Personal history of other genital system and obstetric disorders Pre-procedural laboratory examination documented [facility] this [facility] Diagnosis Viral bronchitis- Primary Acute bronchitis Sore throat Acute pharyngitis documented in [facility]* Diagnosis with uncertain dates in first trimester- Primary documented in this encounter [facility] note* Diagnosis Supervision of other high risk pregnancies, first trimester- Primary Obesity in Obesity complicating , childbirth, or the puerperium, unspecified as to episode of care or not applicable History of asthma Personal history of other diseases of respiratory system [facility]* Diagnosis with uncertain dates in first trimester- Primary Encounter for supervision of normal in multigravida Anxiety and depression Dysthymic disorder Asthma affecting in first trimester History of macrosomia in infant in prior , currently with other poor obstetric history with history of section, antepartum Family history of muscular dystrophy Family history of other neurological diseases documented in this encounter [facility] note* Diagnosis with history of section, antepartum- Primary Asthma affecting in first trimester Obesity in Obesity complicating , childbirth, or the puerperium, unspecified as to episode of care or not applicable documented [facility]* Diagnosis Supervision of high risk in second trimester- Primary Unspecified high-risk History of delivery Other postprocedural status Hx of ectopic Personal history of other genital system and obstetric disorders 14 weeks gestation of state, incidental Obesity in Obesity complicating , childbirth, or the puerperium, unspecified as to episode of care or not applicable Supervision of other high risk pregnancies, first trimester documented in this encounter [facility] note* Diagnosis Encounter for anatomic survey- Primary Obesity in Obesity complicating , childbirth, or the puerperium, unspecified as to episode of care or not applicable 19 weeks gestation of state, incidental Suspected anomaly, antepartum, single or unspecified fetus documented [facility]* Diagnosis Abnormal ultrasound- Primary Abnormal findings on screening documented in this encounter [facility] note* Diagnosis Supervision of high risk in second trimester- Primary Unspecified high-risk History of delivery Other postprocedural status Hx of ectopic Personal history of other genital system and obstetric disorders 19 weeks gestation of state, incidental [facility]* Diagnosis Suspected anomaly, antepartum, single or unspecified fetus documented in [facility] Diagnosis Abnormal ultrasound- Primary Abnormal findings on screening Encounter of female for testing for genetic disease carrier status for procreative management Testing of female for genetic disease carrier status Anxiety with depression [facility] Diagnosis Known anomaly, antepartum, single or unspecified fetus- Primary Fetus with trisomy 13, single gestation with history of section, antepartum Post-operative state Other postprocedural status Known anomaly, antepartum, single or unspecified fetus [facility] Diagnosis Known anomaly, antepartum, single or unspecified fetus- Primary Fetus with trisomy 13, single gestation History of delivery Other postprocedural status documented [facility]* Diagnosis Post-operative state- Primary Other postprocedural status Maternal care for (suspected) 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, trisomy 13, fetus 1 PCOS (polycystic ovarian syndrome) Polycystic ovaries documented in this encounter [facility] Diagnosis Encounter for fertility planning [Z31.89]- Primary Other specified procreative management documented in this [facility] [place] [facility] Diagnosis with uncertain dates in first trimester- Primary Encounter for supervision of normal in multigravida Anxiety and depression Dysthymic disorder Asthma affecting in first trimester History of macrosomia in in prior , currently with other poor obstetric history with history of section, antepartum Family history of muscular dystrophy Family history of other neurological diseases examination or test, unconfirmed- Primary documented in this [facility] Diagnosis with uncertain dates in first trimester- Primary Encounter for supervision of normal in multigravida Anxiety and depression Dysthymic disorder Asthma affecting in first trimester History of macrosomia in in prior , currently with other poor obstetric history with history of section, antepartum Family history of muscular dystrophy Family history of other neurological diseases with history of ectopic , antepartum- Primary , location unknown state, incidental [facility] Diagnosis with uncertain dates in first trimester- Primary Encounter for supervision of normal in multigravida Anxiety and depression Dysthymic disorder Asthma affecting in first trimester History of macrosomia in infant in prior , currently with other poor obstetric history with history of section, antepartum Family history of muscular dystrophy Family history of other neurological diseases with history of ectopic , antepartum- Primary History of reversal of tubal ligation , location unknown state, incidental with history of ectopic , antepartum- Primary , location unknown state, incidental , location unknown- Primary state, incidental with history of ectopic , antepartum [facility] Diagnosis with uncertain dates in first trimester- Primary Encounter for supervision of normal in multigravida Anxiety and depression Dysthymic disorder Asthma affecting in first trimester History of macrosomia in in prior , currently with other poor obstetric history with history of section, antepartum Family history of muscular dystrophy Family history of other neurological diseases , location unknown- Primary state, incidental with history of ectopic , antepartum documented in this encounter [facility] Diagnosis with uncertain dates in first trimester- Primary Encounter for supervision of normal in multigravida Anxiety and depression Dysthymic disorder Asthma affecting in first trimester History of macrosomia in infant in prior , currently with other poor obstetric history with history of section, antepartum Family history of muscular dystrophy Family history of other neurological diseases Early loss- Primary documented in this [facility] Diagnosis with uncertain dates in first trimester- Primary Encounter for supervision of normal in multigravida Anxiety and depression Dysthymic disorder Asthma affecting in first trimester History of macrosomia in in prior , currently with other poor obstetric history with history of section, antepartum Family history of muscular dystrophy Family history of other neurological diseases of unknown anatomic location- Primary state, incidental 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 care for patient with recurrent loss, first trimester control counseling General counseling for initiation of other contraceptive measures documented [facility] this [facility] Diagnosis with uncertain dates in first trimester- Primary Encounter for supervision of normal in multigravida Anxiety and depression Dysthymic disorder Asthma affecting in first trimester History of macrosomia in in prior , currently with other poor obstetric history with history of section, antepartum Family history of muscular dystrophy Family history of other neurological diseases 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 documented in this [facility] Diagnosis with uncertain dates in first trimester- Primary Encounter for supervision of normal in multigravida Anxiety and depression Dysthymic disorder Asthma affecting in first trimester History of macrosomia in infant in prior , currently with other poor obstetric history with history of section, antepartum Family history of muscular dystrophy Family history of other neurological diseases Thyroid antibody positive- Primary documented in this [facility] Diagnosis with uncertain dates in first trimester- Primary Encounter for supervision of normal in multigravida Anxiety and depression Dysthymic disorder Asthma affecting in first trimester History of macrosomia in infant in prior , currently with other poor obstetric history with history of section, antepartum Family history of muscular dystrophy Family history of other neurological diseases Recurrent loss- Primary documented in this [facility] Diagnosis with uncertain dates in first trimester- Primary Encounter for supervision of normal in multigravida Anxiety and depression Dysthymic disorder Asthma affecting in first trimester History of macrosomia in in prior , currently with other poor obstetric history with history of section, antepartum Family history of muscular dystrophy Family history of other neurological diseases Recurrent loss- Primary documented in this [facility] Diagnosis with uncertain dates in first trimester- Primary Encounter for supervision of normal in multigravida Anxiety and depression Dysthymic disorder Asthma affecting in first trimester History of macrosomia in in prior , currently with other poor obstetric history with history of section, antepartum Family history of muscular dystrophy Family history of other neurological diseases Thyroid antibody positive- Primary documented in this [facility] Diagnosis with uncertain dates in first trimester- Primary Encounter for supervision of normal in multigravida Anxiety and depression Dysthymic disorder Asthma affecting in first trimester History of macrosomia in in prior , currently with other poor obstetric history with history of section, antepartum Family history of muscular dystrophy Family history of other neurological diseases Arthralgia, unspecified joint- Primary Recurrent loss Hair loss Alopecia, unspecified documented in this encounter [facility] Diagnosis with uncertain dates in first trimester- Primary Encounter for supervision of normal in multigravida Anxiety and depression Dysthymic disorder Asthma affecting in first trimester History of macrosomia in in prior , currently with other poor obstetric history with history of section, antepartum Family history of muscular dystrophy Family history of other neurological diseases Arthralgia, unspecified joint- Primary Recurrent loss [facility] Diagnosis with uncertain dates in first trimester- Primary Encounter for supervision of normal in multigravida Anxiety and depression Dysthymic disorder Asthma affecting in first trimester History of macrosomia in in prior , currently with other poor obstetric history with history of section, antepartum Family history of muscular dystrophy Family history of other neurological diseases Recurrent loss- Primary documented in this [facility] Diagnosis with uncertain dates in first trimester- Primary Encounter for supervision of normal in multigravida Anxiety and depression Dysthymic disorder Asthma affecting in first trimester History of macrosomia in in prior , currently with other poor obstetric history with history of section, antepartum Family history of muscular dystrophy Family history of other neurological diseases Encounter for test, result positive- Primary examination or test, positive result documented in this encounter [facility] note* Diagnosis with uncertain dates in first trimester- Primary Encounter for supervision of normal in multigravida Anxiety and depression Dysthymic disorder Asthma affecting in first trimester History of macrosomia in infant in prior , currently with other poor obstetric history with history of section, antepartum Family history of muscular dystrophy Family history of other neurological diseases Encounter for test, result positive- Primary examination or test, positive result Encounter for test, result positive- Primary examination or test, positive result documented in this encounter [facility] Diagnosis with uncertain dates in first trimester- Primary Encounter for supervision of normal in multigravida Anxiety and depression Dysthymic disorder Asthma affecting in first trimester History of macrosomia in infant in prior , currently with other poor obstetric history with history of section, antepartum Family history of muscular dystrophy Family history of other neurological diseases Encounter for test, result positive- Primary examination or test, positive result [facility] Diagnosis with uncertain dates in first trimester- Primary Encounter for supervision of normal in multigravida Anxiety and depression Dysthymic disorder Asthma affecting in first trimester History of macrosomia in infant in prior , currently with other poor obstetric history with history of section, antepartum Family history of muscular dystrophy Family history of other neurological diseases with uncertain viability, single or unspecified fetus- Primary Confirm viability, history of recurrent miscarriage, ultrasound Encounter for routine screening for malformation using ultrasonics Uterine size-date discrepancy, first trimester Subchorionic hematoma in first trimester, single or unspecified fetus Early stage of state, incidental documented in this encounter [facility] note* Diagnosis with uncertain dates in first trimester ([facility])- Primary Encounter for supervision of normal in multigravida ([facility]) Anxiety and depression Dysthymic disorder Asthma affecting in first trimester ([facility]) History of macrosomia in infant in prior , currently ([facility]) with other poor obstetric history with history of section, antepartum ([facility]) Family history of muscular dystrophy Family history of other neurological diseases History of recurrent , currently in first trimester ([facility])- Primary documented in this encounter [facility] note* Diagnosis with uncertain dates in first trimester ([facility])- Primary Encounter for supervision of normal in multigravida ([facility]) Anxiety and depression Dysthymic disorder Asthma affecting in first trimester ([facility]) History of macrosomia in in prior , currently ([facility]) with other poor obstetric history with history of section, antepartum ([facility]) Family history of muscular dystrophy Family history of other neurological diseases Encounter for supervision of high risk in first trimester, antepartum ([facility])- Primary with uncertain dates in first trimester ([facility]) with history of ectopic , antepartum ([facility]) Obesity affecting in first trimester, unspecified obesity type ([facility]) History of delivery Other postprocedural status History of reversal of tubal ligation Screening for cervical cancer Screening for malignant neoplasm of the cervix Encounter for screening for human papillomavirus (HPV) Special screening examination for human papillomavirus (HPV) Screen for STD (sexually transmitted disease) Screening examination for venereal disease Family history of trisomy 13 History of delivery of macrosomal infant History of depression Nausea and vomiting during ([facility]) Jose's disease Chronic lymphocytic thyroiditis History of asthma Personal history of other diseases of respiratory system Family history of muscular dystrophy Family history of other neurological diseases PTSD (post-traumatic stress disorder) Posttraumatic stress disorder Depression with anxiety Dysthymic disorder History of headache Personal history of other specified diseases Heartburn during in first trimester ([facility]) Anxiety and depression Dysthymic disorder Constipation during in first trimester ([facility]) documented in this encounter [facility] note* Diagnosis with uncertain dates in first trimester ([facility])- Primary Encounter for supervision of normal in multigravida ([facility]) Anxiety and depression Dysthymic disorder Asthma affecting in first trimester ([facility]) History of macrosomia in infant in prior , currently ([facility]) with other poor obstetric history with history of section, antepartum ([facility]) Family history of muscular dystrophy Family history of other neurological diseases Jose's disease- Primary Chronic lymphocytic thyroiditis documented in this encounter [facility] note* Diagnosis with uncertain dates in first trimester ([facility])- Primary Encounter for supervision of normal in multigravida ([facility]) Anxiety and depression Dysthymic disorder Asthma affecting in first trimester ([facility]) History of macrosomia in in prior , currently ([facility]) with other poor obstetric history with history of section, antepartum ([facility]) Family history of muscular dystrophy Family history of other neurological diseases Family history of trisomy 13- Primary History of delivery affecting ([facility]) Obesity affecting in first trimester, unspecified obesity type ([facility]) * Assessment & Plan Note - Elenita Jorgensen MD - 01/13/2025 11:25 AM EDTAssociated Problem(s): Family history of trisomy 13 Patient is about to start counseling to help cope. She had D&E at 21wks. * Assessment & Plan Note - Elenita Jorgensen MD - 01/13/2025 11:25 AM EDTAssociated Problem(s): Encounter for supervision of high risk in first trimester, antepartum ([facility]) Plans repeat . * Assessment & Plan Note - Elenita Jorgensen MD - 01/13/2025 11:25 AM EDTAssociated Problem(s): Obesity affecting in first trimester ([facility]) documented in this encounter [facility] note* Diagnosis with uncertain dates in first trimester ([facility])- Primary Encounter for supervision of normal in multigravida ([facility]) Anxiety and depression Dysthymic disorder Asthma affecting in first trimester ([facility]) History of macrosomia in in prior , currently ([facility]) with other poor obstetric history with history of section, antepartum ([facility]) Family history of muscular dystrophy Family history of other neurological diseases Encounter for screening for malformation using ultrasound ([facility])- Primary 12 weeks gestation of ([facility]) state, incidental Family history of trisomy 13- Primary History of delivery affecting ([facility]) Obesity affecting in first trimester, unspecified obesity type ([facility]) documented in this encounter [facility] note* Diagnosis with uncertain dates in first trimester ([facility])- Primary Encounter for supervision of normal in multigravida ([facility]) Anxiety and depression Dysthymic disorder Asthma affecting in first trimester ([facility]) History of macrosomia in in prior , currently ([facility]) with other poor obstetric history with history of section, antepartum ([facility]) Family history of muscular dystrophy Family history of other neurological diseases Family history of trisomy 13- Primary History of delivery affecting ([facility]) Obesity affecting in first trimester, unspecified obesity type ([facility]) Jose thyroiditis- Primary documented in this encounter [facility] note* Diagnosis with uncertain dates in first trimester ([facility])- Primary Encounter for supervision of normal in multigravida ([facility]) Anxiety and depression Dysthymic disorder Asthma affecting in first trimester ([facility]) History of macrosomia in infant in prior , currently ([facility]) with other poor obstetric history with history of section, antepartum ([facility]) Family history of muscular dystrophy Family history of other neurological diseases Family history of trisomy 13- Primary History of delivery affecting ([facility]) Obesity affecting in first trimester, unspecified obesity type ([facility]) Family history of trisomy 13- Primary History of delivery affecting ([facility]) History of reversal of tubal ligation History of delivery Other postprocedural status Supervision of high risk in second trimester ([facility]) Unspecified high-risk 16 weeks gestation of ([facility]) state, incidental Anxiety Anxiety state, unspecified Supervision of other high risk pregnancies, first trimester ([facility]) documented in this encounter [facility] note* Diagnosis with uncertain dates in first trimester ([facility])- Primary Encounter for supervision of normal in multigravida ([facility]) Anxiety and depression Dysthymic disorder Asthma affecting in first trimester ([facility]) History of macrosomia in infant in prior , currently ([facility]) with other poor obstetric history with history of section, antepartum ([facility]) Family history of muscular dystrophy Family history of other neurological diseases Family history of trisomy 13- Primary History of delivery affecting ([facility]) Obesity affecting in first trimester, unspecified obesity type ([facility]) Encounter for screening for malformation using ultrasound ([facility])- Primary 16 weeks gestation of ([facility]) state, incidental Obesity affecting in second trimester, unspecified obesity type ([facility]) documented in this encounter [facility] note* Diagnosis with uncertain dates in first trimester ([facility])- Primary Encounter for supervision of normal in multigravida ([facility]) Anxiety and depression Dysthymic disorder Asthma affecting in first trimester ([facility]) History of macrosomia in infant in prior , currently ([facility]) with other poor obstetric history with history of section, antepartum ([facility]) Family history of muscular dystrophy Family history of other neurological diseases Family history of trisomy 13- Primary History of delivery affecting ([facility]) Obesity affecting in first trimester, unspecified obesity type ([facility]) PTSD (post-traumatic stress disorder)- Primary Posttraumatic stress disorder JOSLYN (generalized anxiety disorder) Generalized anxiety disorder documented in this encounter [facility] note* Diagnosis with uncertain dates in first trimester ([facility])- Primary Encounter for supervision of normal in multigravida ([facility]) Anxiety and depression Dysthymic disorder Asthma affecting in first trimester ([facility]) History of macrosomia in in prior , currently ([facility]) with other poor obstetric history with history of section, antepartum ([facility]) Family history of muscular dystrophy Family history of other neurological diseases Family history of trisomy 13- Primary History of delivery affecting ([facility]) Obesity affecting in first trimester, unspecified obesity type ([facility]) PTSD (post-traumatic stress disorder)- Primary Posttraumatic stress disorder JOSLYN (generalized anxiety disorder) Generalized anxiety disorder documented in this encounter [facility] note* Diagnosis with uncertain dates in first trimester ([facility])- Primary Encounter for supervision of normal in multigravida ([facility]) Anxiety and depression Dysthymic disorder Asthma affecting in first trimester ([facility]) History of macrosomia in infant in prior , currently ([facility]) with other poor obstetric history with history of section, antepartum ([facility]) Family history of muscular dystrophy Family history of other neurological diseases Family history of trisomy 13- Primary History of delivery affecting ([facility]) Obesity affecting in first trimester, unspecified obesity type ([facility]) History of delivery affecting ([facility])- Primary Anxiety Anxiety state, unspecified Obesity affecting in first trimester, unspecified obesity type ([facility]) 20 weeks gestation of ([facility]) state, incidental * Assessment & Plan Note - Elenita Jorgensen MD - 03/05/2025 12:08 PM EDTAssociated Problem(s): Anxiety Continue meds Discussed risks of ativan in pregnany * Assessment & Plan Note - Elenita Jorgensen MD - 03/05/2025 12:08 PM EDTAssociated Problem(s): Obesity affecting in first trimester ([facility]) documented in this encounter [facility] note* Diagnosis with uncertain dates in first trimester ([facility])- Primary Encounter for supervision of normal in multigravida ([facility]) Anxiety and depression Dysthymic disorder Asthma affecting in first trimester ([facility]) History of macrosomia in infant in prior , currently ([facility]) with other poor obstetric history with history of section, antepartum ([facility]) Family history of muscular dystrophy Family history of other neurological diseases Family history of trisomy 13- Primary History of delivery affecting ([facility]) Obesity affecting in first trimester, unspecified obesity type ([facility]) Encounter for anatomic survey ([facility])- Primary Encounter for anatomic survey Encounter for screening for malformation using ultrasound ([facility]) 20 weeks gestation of ([facility]) state, incidental Obesity affecting in second trimester, unspecified obesity type ([facility]) History of delivery affecting ([facility])- Primary Anxiety Anxiety state, unspecified Obesity affecting in first trimester, unspecified obesity type (HCC) 20 weeks gestation of ([facility]) state, incidental documented in this encounter [facility] note* Diagnosis with uncertain dates in first trimester ([facility])- Primary Encounter for supervision of normal in multigravida ([facility]) Anxiety and depression Dysthymic disorder Asthma affecting in first trimester ([facility]) History of macrosomia in in prior , currently ([facility]) with other poor obstetric history with history of section, antepartum ([facility]) Family history of muscular dystrophy Family history of other neurological diseases Family history of trisomy 13- Primary History of delivery affecting ([facility]) Obesity affecting in first trimester, unspecified obesity type ([facility]) History of delivery affecting ([facility])- Primary Anxiety Anxiety state, unspecified Obesity affecting in first trimester, unspecified obesity type ([facility]) 20 weeks gestation of ([facility]) state, incidental No-show for appointment- Primary PTSD (post-traumatic stress disorder) Posttraumatic stress disorder JOSLYN (generalized anxiety disorder) Generalized anxiety disorder documented in this encounter [facility] noteNo assessment information availableTemple [facility] Work Phone: Evaluation note* Diagnosis with uncertain dates in first trimester ([facility])- Primary Encounter for supervision of normal in multigravida ([facility]) Anxiety and depression Dysthymic disorder Asthma affecting in first trimester ([facility]) History of macrosomia in infant in prior , currently ([facility]) with other poor obstetric history with history of section, antepartum ([facility]) Family history of muscular dystrophy Family history of other neurological diseases Family history of trisomy 13- Primary History of delivery affecting ([facility]) Obesity affecting in first trimester, unspecified obesity type ([facility]) History of delivery affecting ([facility])- Primary Anxiety Anxiety state, unspecified Obesity affecting in first trimester, unspecified obesity type ([facility]) 20 weeks gestation of ([facility]) state, incidental APPOINTMENT CANCELLED- [facility] Diagnosis with uncertain dates in first trimester ([facility])- Primary Encounter for supervision of normal in multigravida ([facility]) Anxiety and depression Dysthymic disorder Asthma affecting in first trimester ([facility]) History of macrosomia in in prior , currently ([facility]) with other poor obstetric history with history of section, antepartum ([facility]) Family history of muscular dystrophy Family history of other neurological diseases Family history of trisomy 13- Primary History of delivery affecting ([facility]) Obesity affecting in first trimester, unspecified obesity type ([facility]) History of delivery affecting ([facility])- Primary Anxiety Anxiety state, unspecified Obesity affecting in first trimester, unspecified obesity type ([facility]) 20 weeks gestation of ([facility]) state, incidental JOSLYN (generalized anxiety disorder)- Primary Generalized anxiety disorder PTSD (post-traumatic stress disorder) Posttraumatic stress disorder documented in this encounter [facility] note* Diagnosis with uncertain dates in first trimester ([facility])- Primary Encounter for supervision of normal in multigravida ([facility]) Anxiety and depression Dysthymic disorder Asthma affecting in first trimester ([facility]) History of macrosomia in infant in prior , currently ([facility]) with other poor obstetric history with history of section, antepartum ([facility]) Family history of muscular dystrophy Family history of other neurological diseases Family history of trisomy 13- Primary History of delivery affecting ([facility]) Obesity affecting in first trimester, unspecified obesity type ([facility]) History of delivery affecting ([facility])- Primary Anxiety Anxiety state, unspecified Obesity affecting in first trimester, unspecified obesity type ([facility]) 20 weeks gestation of ([facility]) state, incidental 22 weeks gestation of ([facility])- Primary state, incidental History of delivery affecting ([facility]) Urinary tract infection with hematuria, site unspecified documented in this encounter [facility] for referral (narrative)* Diagnostic Procedure Only (Routine) - Pending Review Specialty Diagnoses / Procedures Referred By Sharon chapman Referred To Contact XR IMAGING Diagnoses Hx of ectopic Procedures XR HYSTEROSALPINGOGRAM CATH & SALINE/CONTRAST SONOHYSTER/HYSTEROSALPI Theresa To, JUNIOR.DONOR SUPPORT TECHNICIAN [address] [place] [id number] Xr Imaging Referral ID Status Reason Start Date Expiration Date Visits Requested Visits Authorized [id number] Pending Review Auto-Generat ed Referral 01/17/2022 02/16/2023 1 1 [facility] for referral (narrative)* Diagnostic Procedure Only (Routine) - Closed Specialty Diagnoses / Procedures Referred By Contac t Referred To Contact XR IMAGING Diagnoses Hx of ectopic Procedures XR HYSTEROSALPINGOGRAM CATH & SALINE/CONTRAST SONOHYSTER/HYSTEROSALPI Theresa To APRN.DONOR SUPPORT TECHNICIAN [address] [place] [id number] Xr Imaging Referral ID Status Reason Start Date Expiration Date V isits Requested Visits Authorized [id number] Closed Auto-Generate d Referral 01/18/2022 09/09/2022 1 1 [facility] for referral (narrative)* Diagnostic Procedure Only (Routine) - Authorized Specialty Diagnoses / Procedures Referred By Contac t Referred To Contact [facility] Diagnoses Early stage of Procedures OBSTETRIC ULTRASOUND WHI US PREG UTERUS AFTER 1ST TRIMEST GESTATION Alia Uribe MD [address] [place] [address] [facility] [address] [place] [address] Referral ID Status Reason Start Date Expiration Date Visits Requested Visits Authorized [id number] Authorized Auto-Generat ed Referral 10/02/2022 10/02/2023 1 1 [facility] (narrative)* Diagnostic Procedure Only (Routine) - Pending Review Specialty Diagnoses / Procedures Referred By Contac t Referred To Contact [facility] Diagnoses History of miscarriage Procedures SONOHYSTEROGRAPHY (SIS) US WHI SALINE INFUS SONOHYSTEROGRAPHY W/[place] [address] [place] [address] [address] Referral ID Status Reason Start Date Expiration Date Visits Requested Visits Authorized [id number] Pending Review Auto-Generat ed Referral 05/02/2023 05/01/2024 1 1 [facility] for referral (narrative)* Diagnostic Procedure Only (Routine) - Authorized Specialty Diagnoses / Procedures Referred By Contac t Referred To Contact [facility] Diagnoses with uncertain dates in first trimester Encounter for supervision of normal in multigravida Procedures NUCHAL TRANSLUCENCY WHI US NUCHAL TRANSLUCENCY 1ST GESTATION Yuliya Jackson APRN.CNM [address] [place] [address] [address] Referral ID Status Reason Start Date Expiration Date Visits Requested Visits Authorized [id number] Authorized Auto-Generat ed Referral 10/26/2023 10/25/2024 1 1 * Diagnostic Procedure Only (Routine) - Pending Review Specialty Diagnoses / Procedures Referred By Contac t Referred To [facility] Diagnoses with uncertain dates in first trimester Encounter for supervision of normal in multigravida Procedures OBSTETRIC ULTRASOUND WHI US PREG UTERUS AFTER 1ST TRIMEST GESTATION Yuliya Jackson APRN.CNM [address] [place] [address] [address] Referral ID Status Reason Start Date Expiration Date Visits Requested Visits Authorized [id number] Pending Review Auto-Generat ed Referral 10/26/2023 10/25/2024 1 1 [facility] for referral (narrative)* Diagnostic Procedure Only (Routine) - Authorized Specialty Diagnoses / Procedures Referred By Contac t Referred To Contact [facility] Diagnoses History of delivery Supervision of high risk in second trimester Hx of ectopic 14 weeks gestation of Obesity in Procedures OBSTETRIC ULTRASOUND WHI US PREG UTERUS AFTER 1ST TRIMEST GESTATION Alia Uribe MD [address] [place] [address] [facility] [address] [place] [address] Referral ID Status Reason Start Date Expiration Date Visits Requested Visits Authorized [id number] Authorized Auto-Generat ed Referral 12/21/2023 12/20/2024 1 1 [facility] for referral (narrative)* Diagnostic Procedure Only (Routine) - Pending Review Specialty Diagnoses / Procedures Referred By Contac t Referred To Contact [facility] Diagnoses Suspected anomaly, antepartum, single or unspecified fetus Procedures AMNIOCENTESIS US WHI US GUIDANCE AMNIOCENTESIS IMG S&[place] [address] [place] [address] [address] Referral ID Status Reason Start Date Expiration Date Visits Requested Visits Authorized [id number] Pending Review Auto-Generat ed Referral 01/23/2024 01/22/2025 1 1 T [facility] for referral (narrative)* Outpatient Procedure (Routine) - Authorized Specialty Diagnoses / Procedures Referred By Contac t Referred To Contact [facility] Diagnoses Suspected anomaly, antepartum, single or unspecified fetus Procedures ECHO [id number] [place] [address] [place] [address] [facility] [address] [place] [address] Referral ID Status Reason Start Date Expiration Date Visits Requested Visits Authorized [id number] Authorized Auto-Generat ed Referral 01/30/2024 09/09/2024 1 1 [facility] for referral (narrative)* Diagnostic Procedure Only (Routine) - Closed Specialty Diagnoses / Procedures Referred By Contac t Referred To Contact [facility] Diagnoses with history of ectopic , antepartum , location unknown Procedures PELVIC US WHI US PELVIC NONOBSTETRIC REAL-TIME IMAGE COMPLETE Suzi Franco DO [address] [id number] [place] [id number] Referral ID Status Reason Start Date Expiration Date V isits Requested Visits Authorized [id number] Closed Auto-Generate d Referral 05/29/2024 05/29/2025 1 1 [facility] for referral (narrative)No reason for referral information availableTemple Community Hospital Work Phone: [facility] Narrative* Diagnostic Procedure Only (Routine) - Closed Specialty Diagnoses / Procedures Referred By Contac t Referred To Contact XR IMAGING Diagnoses Hx of ectopic Procedures XR HYSTEROSALPINGOGRAM CATH & SALINE/CONTRAST SONOHYSTER/HYSTEROSALPI Theresa To, JUNIOR.DONOR SUPPORT TECHNICIAN [address] [facility] [address] [place] [address] Xr Imaging Referral ID Status Reason Start Date Expiration Date V isits Requested Visits Authorized [id number] Closed Auto-Generate d Referral 01/18/2022 09/09/2022 1 1 [facility] for visit Narrative* Diagnostic Procedure Only (Routine) - Closed Specialty Diagnoses / Procedures Referred By Contac t Referred To Contact [facility] Diagnoses with history of ectopic , antepartum , location unknown Procedures PELVIC US WHI US PELVIC NONOBSTETRIC REAL-TIME IMAGE COMPLETE Suzi Franco DO [address] [id number] [facility] [address] [place] [address] Referral ID Status Reason Start Date Expiration Date V isits Requested Visits Authorized [id number] Closed Auto-Generate d Referral 05/29/2024 05/29/2025 1 1 [facility] Summary Purpose Family History Unknown Family Member Name Dates Details Family history of diabetes m ellitus: Grandmother(V18.0, Z83.3) Status:Active Family history of hypertensi on: Mother(V17.49, Z82.49) Status:Active Family history of cardiac di sorder: Maternal Great Grandmother(V17.49, Z82.49) Status:Active Family history of asthma: Mo ther, Brother(V17.5, Z82.5) Status:Active Psychological disorder: Moth er, Grandmother Status:Active Unknown Family Member Name Dates Details Family history of diabetes m ellitus: Grandmother(V18.0, Z83.3) Status:Active Family history of hypertensi on: Mother(V17.49, Z82.49) Status:Active Family history of cardiac di sorder: Maternal Great Grandmother(V17.49, Z82.49) Status:Active Family history of asthma: Mo ther, Brother(V17.5, Z82.5) Status:Active Psychological disorder: Moth er, Grandmother Status:Active Relationship Condition Age at Onset Recorded Date/T jesus mother Rheumatoid arthritis Unknown unrelated friend Asthma Unknown Diabetes mellitus Unknown Cardiac disease Unknown Advance Directives Documents on File Type Date Recorded 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 PT HAS THREE CHILDREN AND HAD A TUBAL AFTER.PT THEN GOT IT REVERSED TO HAVE MORE CHILDREN. IN 2020 PT HAD AN ECTOPIC AND HAS NOT BEENABLE TO CONCEIVE SINCE. PT STATES THE PEAK OF HER OVULATION SHE BLEEDS AFTER INTERCOURSE AND HAS SOME CRAMPING. LMP 04/17/22 Health Concerns Problem Noted Date OB Reminders 10/02/2022 Problem Noted Date OB Reminders 10/02/2022 Problem Noted Date OB Reminders 10/02/2022 Problem Noted Date OB Reminders 10/02/2022 Problem Noted Date OB Reminders 10/02/2022 Problem Noted Date Diagnosed Date [facility] - [facility] 10/26/2023 Education - [place] 10/26/2023 Problem Noted Date Diagnosed Date [facility] - [facility] 10/26/2023 Education - [place] 10/26/2023 Problem Noted Date Diagnosed Date [facility] - [facility] 10/26/2023 Education - [place] 10/26/2023 Active Problems Noted Date Diagnosed Date [facility] Education - [facility] 10/26/2023 Education - [place] 10/26/2023 Active Problems Noted Date Diagnosed Date [facility] - [facility] 10/26/2023 Education - [place] 10/26/2023 Reason for Referral Specialty Diagnoses / Procedures Referred By Contac t Referred To Contact Diagnoses Abnormal ultrasound Anxiety with depression Procedures CONSULT TO WOMEN'S BEHAVIORAL HEALTH OFFICE/OUTPATIENT [facility] 60 MINUTES Sariah Skinner MD [address] [place] [address] Referral ID Status Reason Start Date Expiration Date Visits Requested Visits Authorized [id number] Authorized PCP Requested Referral 01/25/2024 01/24/2025 1 1 Specialty Diagnoses / Procedures Referred By Contac t Referred To Contact Diagnoses PCOS (polycystic ovarian syndrome) Procedures CONSULT TO INFERTILITY CLINIC OFFICE/OUTPATIENT [facility] 60 MINUTES Bayron Ramirez, [address] [place] [address] Referral ID Status Reason Start Date Expiration Date Visits Requested Visits Authorized [id number] Authorized PCP Requested Referral Auto-Generate d Referral 02/24/2024 02/23/2025 1 1 Specialty Diagnoses / Procedures Referred By Contac t Referred To Contact Diagnoses Maternal care for (suspected) 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, trisomy 13, fetus 1 Procedures CONSULT TO MATERNAL MEDI OFFICE/OUTPATIENT [facility] 60 MINUTES Bayron Ramirez, [address] [place] [address] Referral ID Status Reason Start Date Expiration Date Visits Requested Visits Authorized [id number] Authorized PCP Requested Referral Auto-Generate d Referral 02/22/2024 02/21/2025 1 1 Specialty Diagnoses / Procedures Referred By Contac t Referred To Contact Diagnoses care for patient with recurrent loss, first trimester Procedures CONSULT TO INFERTILITY CLINIC OFFICE/OUTPATIENT [facility] 60 MINUTES Suzi Franco DO [address] [place] [address] Referral ID Status Reason Start Date Expiration Date Visits Requested Visits Authorized [id number] Authorized PCP Requested Referral Auto-Generate d Referral 06/02/2024 06/02/2025 1 1 Specialty Diagnoses / Procedures Referred By Contac t Referred To Contact Diagnoses care for patient with recurrent loss, first trimester Procedures CONSULT TO MEDICAL GENETICS - MEDICAL GENETICS COUNSELING EACH 30 MINUTES Suzi Franco DO [phone] [place] [address] Referral ID Status Reason Start Date Expiration Date Visits Requested Visits Authorized [id number] Authorized PCP Requested Referral Auto-Generate d Referral 06/02/2024 06/02/2025 1 1 Specialty Diagnoses / Procedures Referred By Contac t Referred To Contact Endocrinology Diagnoses Thyroid antibody positive Procedures CONSULT TO ENDOCRINOLOGY OFFICE/OUTPATIENT [facility] 60 MINUTES Suzi Franco DO [address] [phone] Referral ID Status Reason Start Date Expiration Date Visits Requested Visits Authorized [id number] Authorized PCP Requested Referral 4 06/29/2025 1 1 Specialty Diagnoses / Procedures Referred By Contac t Referred To Contact Rheumatology Diagnoses Recurrent loss Procedures CONSULT TO RHEUM/IMMUN DISEASE OFFICE/OUTPATIENT [facility] 60 MINUTES Suzi Franco DO [address] [place] [address] Referral ID Status Reason Start Date Expiration Date Visits Requested Visits Authorized [id number] Authorized PCP Requested Referral 4 07/04/2025 1 1 Chief Complaint and Reason for Visit Chief Complaint Admit Date CONCERN FOR UTI March 18, 2025 4:09p m Additional Source Comments INFORMATION SOURCE (unrecogn ized section and content) DATE CREATED AUTHOR 06/15/2019 [facility] DATE CREATED AUTHOR AUTHOR'S ORGANIZ ATION 09/17/2020 [facility] DATE CREATED AUTHOR AUTHOR'S ORGANIZ ATION 05/06/2022 [facility] DATE CREATED AUTHOR AUTHOR'S ORGANIZ ATION 05/11/2022 [facility] DATE CREATED AUTHOR AUTHOR'S ORGANIZ ATION 02/08/2024 [facility] DATE CREATED AUTHOR AUTHOR'S ORGANIZ ATION 08/03/[address] [facility] DATE CREATED AUTHOR AUTHOR'S ORGANIZ ATION 08/21/2024 [facility] DATE CREATED AUTHOR AUTHOR'S ORGANIZ ATION 02/20/2025 [facility] DATE CREATED AUTHOR AUTHOR'S ORGANIZ ATION 03/08/2025 [facility] DATE CREATED AUTHOR AUTHOR'S ORGANIZ ATION 03/14/2025 [facility] Source Comments (unrecognize d section and content) In the event this informatio n is protected by the Federal Confidentiality of Alcohol and Drug Abuse Patient Records regulations: The Federal rules restrict any use of the information to criminally investigate or prosecute any alcohol or drug abuse patient.[facility] the event this information is protected by the Federal Confidentiality of Alcohol and Drug Abuse Patient Records regulations: The Federal rules restrict any use of the information to criminally investigate or prosecute any alcohol or drug abuse patient.[facility] the event this information is protected by the Federal Confidentiality of Alcohol and Drug Abuse Patient Records regulations: The Federal rules restrict any use of the information to criminally investigate or prosecute any alcohol or drug abuse patient.[facility] the event this information is protected by the Federal Confidentiality of Alcohol and Drug Abuse Patient Records regulations: The Federal rules restrict any use of the information to criminally investigate or prosecute any alcohol or drug abuse patient.[facility] the event this information is protected by the Federal Confidentiality of Alcohol and Drug Abuse Patient Records regulations: The Federal rules restrict any use of the information to criminally investigate or prosecute any alcohol or drug abuse patient.[facility] the event this information is protected by the Federal Confidentiality of Alcohol and Drug Abuse Patient Records regulations: The Federal rules restrict any use of the information to criminally investigate or prosecute any alcohol or drug abuse patient.[facility] the event this information is protected by the Federal Confidentiality of Alcohol and Drug Abuse Patient Records regulations: The Federal rules restrict any use of the information to criminally investigate or prosecute any alcohol or drug abuse patient.[facility] the event this information is protected by the Federal Confidentiality of Alcohol and Drug Abuse Patient Records regulations: The Federal rules restrict any use of the information to criminally investigate or prosecute any alcohol or drug abuse patient.[facility] the event this information is protected by the Federal Confidentiality of Alcohol and Drug Abuse Patient Records regulations: The Federal rules restrict any use of the information to criminally investigate or prosecute any alcohol or drug abuse patient.[facility] the event this information is protected by the Federal Confidentiality of Alcohol and Drug Abuse Patient Records regulations: The Federal rules restrict any use of the information to criminally investigate or prosecute any alcohol or drug abuse patient.[facility] the event this information is protected by the Federal Confidentiality of Alcohol and Drug Abuse Patient Records regulations: The Federal rules restrict any use of the information to criminally investigate or prosecute any alcohol or drug abuse patient.[facility] the event this information is protected by the Federal Confidentiality of Alcohol and Drug Abuse Patient Records regulations: The Federal rules restrict any use of the information to criminally investigate or prosecute any alcohol or drug abuse patient.[facility] the event this information is protected by the Federal Confidentiality of Alcohol and Drug Abuse Patient Records regulations: The Federal rules restrict any use of the information to criminally investigate or prosecute any alcohol or drug abuse patient.[facility] the event this information is protected by the Federal Confidentiality of Alcohol and Drug Abuse Patient Records regulations: The Federal rules restrict any use of the information to criminally investigate or prosecute any alcohol or drug abuse patient.[facility] the event this information is protected by the Federal Confidentiality of Alcohol and Drug Abuse Patient Records regulations: The Federal rules restrict any use of the information to criminally investigate or prosecute any alcohol or drug abuse patient.[facility], [place]woodIn the event this information is protected by the Federal Confidentiality of Alcohol and Drug Abuse Patient Records regulations: The Federal rules restrict any use of the information to criminally investigate or prosecute any alcohol or drug abuse patient.[facility], [place]woodIn the event this information is protected by the Federal Confidentiality of Alcohol and Drug Abuse Patient Records regulations: The Federal rules restrict any use of the information to criminally investigate or prosecute any alcohol or drug abuse patient.[facility], [place]In the event this information is protected by the Federal Confidentiality of Alcohol and Drug Abuse Patient Records regulations: The Federal rules restrict any use of the information to criminally investigate or prosecute any alcohol or drug abuse patient.[facility], [place]In the event this information is protected by the Federal Confidentiality of Alcohol and Drug Abuse Patient Records regulations: The Federal rules restrict any use of the information to criminally investigate or prosecute any alcohol or drug abuse patient.[facility], [place]In the event this information is protected by the Federal Confidentiality of Alcohol and Drug Abuse Patient Records regulations: The Federal rules restrict any use of the information to criminally investigate or prosecute any alcohol or drug abuse patient.[facility], [place]In the event this information is protected by the Federal Confidentiality of Alcohol and Drug Abuse Patient Records regulations: The Federal rules restrict any use of the information to criminally investigate or prosecute any alcohol or drug abuse patient.[facility], [place]In the event this information is protected by the Federal Confidentiality of Alcohol and Drug Abuse Patient Records regulations: The Federal rules restrict any use of the information to criminally investigate or prosecute any alcohol or drug abuse patient.[facility], [place]In the event this information is protected by the Federal Confidentiality of Alcohol and Drug Abuse Patient Records regulations: The Federal rules restrict any use of the information to criminally investigate or prosecute any alcohol or drug abuse patient.[facility], [place]In the event this information is protected by the Federal Confidentiality of Alcohol and Drug Abuse Patient Records regulations: The Federal rules restrict any use of the information to criminally investigate or prosecute any alcohol or drug abuse patient.[facility], [place]In the event this information is protected by the Federal Confidentiality of Alcohol and Drug Abuse Patient Records regulations: The Federal rules restrict any use of the information to criminally investigate or prosecute any alcohol or drug abuse patient.[facility], [place]In the event this information is protected by the Federal Confidentiality of Alcohol and Drug Abuse Patient Records regulations: The Federal rules restrict any use of the information to criminally investigate or prosecute any alcohol or drug abuse patient.[facility], [place]In the event this information is protected by the Federal Confidentiality of Alcohol and Drug Abuse Patient Records regulations: The Federal rules restrict any use of the information to criminally investigate or prosecute any alcohol or drug abuse patient.[facility], [place]In the event this information is protected by the Federal Confidentiality of Alcohol and Drug Abuse Patient Records regulations: The Federal rules restrict any use of the information to criminally investigate or prosecute any alcohol or drug abuse patient.[facility], [place]In the event this information is protected by the Federal Confidentiality of Alcohol and Drug Abuse Patient Records regulations: The Federal rules restrict any use of the information to criminally investigate or prosecute any alcohol or drug abuse patient.[facility], [place]In the event this information is protected by the Federal Confidentiality of Alcohol and Drug Abuse Patient Records regulations: The Federal rules restrict any use of the information to criminally investigate or prosecute any alcohol or drug abuse patient.[facility], [place]In the event this information is protected by the Federal Confidentiality of Alcohol and Drug Abuse Patient Records regulations: The Federal rules restrict any use of the information to criminally investigate or prosecute any alcohol or drug abuse patient.[facility], [place]In the event this information is protected by the Federal Confidentiality of Alcohol and Drug Abuse Patient Records regulations: The Federal rules restrict any use of the information to criminally investigate or prosecute any alcohol or drug abuse patient.[facility], [place]In the event this information is protected by the Federal Confidentiality of Alcohol and Drug Abuse Patient Records regulations: The Federal rules restrict any use of the information to criminally investigate or prosecute any alcohol or drug abuse patient.[facility], [place]In the event this information is protected by the Federal Confidentiality of Alcohol and Drug Abuse Patient Records regulations: The Federal rules restrict any use of the information to criminally investigate or prosecute any alcohol or drug abuse patient.[facility], [place]In the event this information is protected by the Federal Confidentiality of Alcohol and Drug Abuse Patient Records regulations: The Federal rules restrict any use of the information to criminally investigate or prosecute any alcohol or drug abuse patient.[facility], [place]In the event this information is protected by the Federal Confidentiality of Alcohol and Drug Abuse Patient Records regulations: The Federal rules restrict any use of the information to criminally investigate or prosecute any alcohol or drug abuse patient.[facility], [place]In the event this information is protected by the Federal Confidentiality of Alcohol and Drug Abuse Patient Records regulations: The Federal rules restrict any use of the information to criminally investigate or prosecute any alcohol or drug abuse patient.[facility], [place]In the event this information is protected by the Federal Confidentiality of Alcohol and Drug Abuse Patient Records regulations: The Federal rules restrict any use of the information to criminally investigate or prosecute any alcohol or drug abuse patient.[facility], [place]In the event this information is protected by the Federal Confidentiality of Alcohol and Drug Abuse Patient Records regulations: The Federal rules restrict any use of the information to criminally investigate or prosecute any alcohol or drug abuse patient.[facility], [place]In the event this information is protected by the Federal Confidentiality of Alcohol and Drug Abuse Patient Records regulations: The Federal rules restrict any use of the information to criminally investigate or prosecute any alcohol or drug abuse patient.[facility], [place]In the event this information is protected by the Federal Confidentiality of Alcohol and Drug Abuse Patient Records regulations: The Federal rules restrict any use of the information to criminally investigate or prosecute any alcohol or drug abuse patient.[facility], [place]In the event this information is protected by the Federal Confidentiality of Alcohol and Drug Abuse Patient Records regulations: The Federal rules restrict any use of the information to criminally investigate or prosecute any alcohol or drug abuse patient.[facility], [place]In the event this information is protected by the Federal Confidentiality of Alcohol and Drug Abuse Patient Records regulations: The Federal rules restrict any use of the information to criminally investigate or prosecute any alcohol or drug abuse patient.[facility], [place]In the event this information is protected by the Federal Confidentiality of Alcohol and Drug Abuse Patient Records regulations: The Federal rules restrict any use of the information to criminally investigate or prosecute any alcohol or drug abuse patient.[facility], [place]In the event this information is protected by the Federal Confidentiality of Alcohol and Drug Abuse Patient Records regulations: The Federal rules restrict any use of the information to criminally investigate or prosecute any alcohol or drug abuse patient.[facility], [place]In the event this information is protected by the Federal Confidentiality of Alcohol and Drug Abuse Patient Records regulations: The Federal rules restrict any use of the information to criminally investigate or prosecute any alcohol or drug abuse patient.[facility], [place]In the event this information is protected by the Federal Confidentiality of Alcohol and Drug Abuse Patient Records regulations: The Federal rules restrict any use of the information to criminally investigate or prosecute any alcohol or drug abuse patient.[facility], [place]In the event this information is protected by the Federal Confidentiality of Alcohol and Drug Abuse Patient Records regulations: The Federal rules restrict any use of the information to criminally investigate or prosecute any alcohol or drug abuse patient.[facility], [place]In the event this information is protected by the Federal Confidentiality of Alcohol and Drug Abuse Patient Records regulations: The Federal rules restrict any use of the information to criminally investigate or prosecute any alcohol or drug abuse patient.[facility], [place]In the event this information is protected by the Federal Confidentiality of Alcohol and Drug Abuse Patient Records regulations: The Federal rules restrict any use of the information to criminally investigate or prosecute any alcohol or drug abuse patient.[facility], [place]In the event this information is protected by the Federal Confidentiality of Alcohol and Drug Abuse Patient Records regulations: The Federal rules restrict any use of the information to criminally investigate or prosecute any alcohol or drug abuse patient.[facility], [place]In the event this information is protected by the Federal Confidentiality of Alcohol and Drug Abuse Patient Records regulations: The Federal rules restrict any use of the information to criminally investigate or prosecute any alcohol or drug abuse patient.[facility], [place]In the event this information is protected by the Federal Confidentiality of Alcohol and Drug Abuse Patient Records regulations: The Federal rules restrict any use of the information to criminally investigate or prosecute any alcohol or drug abuse patient.[facility], [place]In the event this information is protected by the Federal Confidentiality of Alcohol and Drug Abuse Patient Records regulations: The Federal rules restrict any use of the information to criminally investigate or prosecute any alcohol or drug abuse patient.[facility], [place]In the event this information is protected by the Federal Confidentiality of Alcohol and Drug Abuse Patient Records regulations: The Federal rules restrict any use of the information to criminally investigate or prosecute any alcohol or drug abuse patient.[facility], [place]In the event this information is protected by the Federal Confidentiality of Alcohol and Drug Abuse Patient Records regulations: The Federal rules restrict any use of the information to criminally investigate or prosecute any alcohol or drug abuse patient.[facility], [place]In the event this information is protected by the Federal Confidentiality of Alcohol and Drug Abuse Patient Records regulations: The Federal rules restrict any use of the information to criminally investigate or prosecute any alcohol or drug abuse patient.[facility], [place]In the event this information is protected by the Federal Confidentiality of Alcohol and Drug Abuse Patient Records regulations: The Federal rules restrict any use of the information to criminally investigate or prosecute any alcohol or drug abuse patient.[facility], [place]In the event this information is protected by the Federal Confidentiality of Alcohol and Drug Abuse Patient Records regulations: The Federal rules restrict any use of the information to criminally investigate or prosecute any alcohol or drug abuse patient.[facility], [place]In the event this information is protected by the Federal Confidentiality of Alcohol and Drug Abuse Patient Records regulations: The Federal rules restrict any use of the information to criminally investigate or prosecute any alcohol or drug abuse patient.[facility], [place]In the event this information is protected by the Federal Confidentiality of Alcohol and Drug Abuse Patient Records regulations: The Federal rules restrict any use of the information to criminally investigate or prosecute any alcohol or drug abuse patient.[facility], [place]In the event this information is protected by the Federal Confidentiality of Alcohol and Drug Abuse Patient Records regulations: The Federal rules restrict any use of the information to criminally investigate or prosecute any alcohol or drug abuse patient.[facility], [place]In the event this information is protected by the Federal Confidentiality of Alcohol and Drug Abuse Patient Records regulations: The Federal rules restrict any use of the information to criminally investigate or prosecute any alcohol or drug abuse patient.[facility], [place]In the event this information is protected by the Federal Confidentiality of Alcohol and Drug Abuse Patient Records regulations: The Federal rules restrict any use of the information to criminally investigate or prosecute any alcohol or drug abuse patient.[facility], [place]In the event this information is protected by the Federal Confidentiality of Alcohol and Drug Abuse Patient Records regulations: The Federal rules restrict any use of the information to criminally investigate or prosecute any alcohol or drug abuse patient.[facility], [place]In the event this information is protected by the Federal Confidentiality of Alcohol and Drug Abuse Patient Records regulations: The Federal rules restrict any use of the information to criminally investigate or prosecute any alcohol or drug abuse patient.[facility], [place]In the event this information is protected by the Federal Confidentiality of Alcohol and Drug Abuse Patient Records regulations: The Federal rules restrict any use of the information to criminally investigate or prosecute any alcohol or drug abuse patient.[facility], [place]In the event this information is protected by the Federal Confidentiality of Alcohol and Drug Abuse Patient Records regulations: The Federal rules restrict any use of the information to criminally investigate or prosecute any alcohol or drug abuse patient.[facility], [place]In the event this information is protected by the Federal Confidentiality of Alcohol and Drug Abuse Patient Records regulations: The Federal rules restrict any use of the information to criminally investigate or prosecute any alcohol or drug abuse patient.[facility], [place]In the event this information is protected by the Federal Confidentiality of Alcohol and Drug Abuse Patient Records regulations: The Federal rules restrict any use of the information to criminally investigate or prosecute any alcohol or drug abuse patient.[facility], [place]In the event this information is protected by the Federal Confidentiality of Alcohol and Drug Abuse Patient Records regulations: The Federal rules restrict any use of the information to criminally investigate or prosecute any alcohol or drug abuse patient.[facility], [place]In the event this information is protected by the Federal Confidentiality of Alcohol and Drug Abuse Patient Records regulations: The Federal rules restrict any use of the information to criminally investigate or prosecute any alcohol or drug abuse patient.[facility], [place]In the event this information is protected by the Federal Confidentiality of Alcohol and Drug Abuse Patient Records regulations: The Federal rules restrict any use of the information to criminally investigate or prosecute any alcohol or drug abuse patient.[facility], [place]In the event this information is protected by the Federal Confidentiality of Alcohol and Drug Abuse Patient Records regulations: The Federal rules restrict any use of the information to criminally investigate or prosecute any alcohol or drug abuse patient.[facility], [place]In the event this information is protected by the Federal Confidentiality of Alcohol and Drug Abuse Patient Records regulations: The Federal rules restrict any use of the information to criminally investigate or prosecute any alcohol or drug abuse patient.[facility], [place]In the event this information is protected by the Federal Confidentiality of Alcohol and Drug Abuse Patient Records regulations: The Federal rules restrict any use of the information to criminally investigate or prosecute any alcohol or drug abuse patient.[facility], [place]In the event this information is protected by the Federal Confidentiality of Alcohol and Drug Abuse Patient Records regulations: The Federal rules restrict any use of the information to criminally investigate or prosecute any alcohol or drug abuse patient.[facility], [place]In the event this information is protected by the Federal Confidentiality of Alcohol and Drug Abuse Patient Records regulations: The Federal rules restrict any use of the information to criminally investigate or prosecute any alcohol or drug abuse patient.[facility], [place]In the event this information is protected by the Federal Confidentiality of Alcohol and Drug Abuse Patient Records regulations: The Federal rules restrict any use of the information to criminally investigate or prosecute any alcohol or drug abuse patient.[facility], [place]In the event this information is protected by the Federal Confidentiality of Alcohol and Drug Abuse Patient Records regulations: The Federal rules restrict any use of the information to criminally investigate or prosecute any alcohol or drug abuse patient.[facility], [place]In the event this information is protected by the Federal Confidentiality of Alcohol and Drug Abuse Patient Records regulations: The Federal rules restrict any use of the information to criminally investigate or prosecute any alcohol or drug abuse patient.[facility], [place]In the event this information is protected by the Federal Confidentiality of Alcohol and Drug Abuse Patient Records regulations: The Federal rules restrict any use of the information to criminally investigate or prosecute any alcohol or drug abuse patient.[facility], [place]In the event this information is protected by the Federal Confidentiality of Alcohol and Drug Abuse Patient Records regulations: The Federal rules restrict any use of the information to criminally investigate or prosecute any alcohol or drug abuse patient.[facility], [place]In the event this information is protected by the Federal Confidentiality of Alcohol and Drug Abuse Patient Records regulations: The Federal rules restrict any use of the information to criminally investigate or prosecute any alcohol or drug abuse patient.[facility], [place]In the event this information is protected by the Federal Confidentiality of Alcohol and Drug Abuse Patient Records regulations: The Federal rules restrict any use of the information to criminally investigate or prosecute any alcohol or drug abuse patient.[facility], [place]In the event this information is protected by the Federal Confidentiality of Alcohol and Drug Abuse Patient Records regulations: The Federal rules restrict any use of the information to criminally investigate or prosecute any alcohol or drug abuse patient.[facility], [place]In the event this information is protected by the Federal Confidentiality of Alcohol and Drug Abuse Patient Records regulations: The Federal rules restrict any use of the information to criminally investigate or prosecute any alcohol or drug abuse patient.[facility], [place]In the event this information is protected by the Federal Confidentiality of Alcohol and Drug Abuse Patient Records regulations: The Federal rules restrict any use of the information to criminally investigate or prosecute any alcohol or drug abuse patient.[facility], [place]In the event this information is protected by the Federal Confidentiality of Alcohol and Drug Abuse Patient Records regulations: The Federal rules restrict any use of the information to criminally investigate or prosecute any alcohol or drug abuse patient.[facility], [place]In the event this information is protected by the Federal Confidentiality of Alcohol and Drug Abuse Patient Records regulations: The Federal rules restrict any use of the information to criminally investigate or prosecute any alcohol or drug abuse patient.[facility] [place] the event this information is protected by the Federal Confidentiality of Alcohol and Drug Abuse Patient Records regulations: The Federal rules restrict any use of the information to criminally investigate or prosecute any alcohol or drug abuse patient.[facility] [place] the event this information is protected by the Federal Confidentiality of Alcohol and Drug Abuse Patient Records regulations: The Federal rules restrict any use of the information to criminally investigate or prosecute any alcohol or drug abuse patient.[facility] [place] the event this information is protected by the Federal Confidentiality of Alcohol and Drug Abuse Patient Records regulations: The Federal rules restrict any use of the information to criminally investigate or prosecute any alcohol or drug abuse patient.[facility] [place] the event this information is protected by the Federal Confidentiality of Alcohol and Drug Abuse Patient Records regulations: The Federal rules restrict any use of the information to criminally investigate or prosecute any alcohol or drug abuse patient.[facility] [place] the event this information is protected by the Federal Confidentiality of Alcohol and Drug Abuse Patient Records regulations: The Federal rules restrict any use of the information to criminally investigate or prosecute any alcohol or drug abuse patient.[facility] [place] the event this information is protected by the Federal Confidentiality of Alcohol and Drug Abuse Patient Records regulations: The Federal rules restrict any use of the information to criminally investigate or prosecute any alcohol or drug abuse patient.[facility] [place] the event this information is protected by the Federal Confidentiality of Alcohol and Drug Abuse Patient Records regulations: The Federal rules restrict any use of the information to criminally investigate or prosecute any alcohol or drug abuse patient.[facility] [place]wood[place] the event this information is protected by the Federal Confidentiality of Alcohol and Drug Abuse Patient Records regulations: The Federal rules restrict any use of the information to criminally investigate or prosecute any alcohol or drug abuse patient.[facility] [place]wood[place] the event this information is protected by the Federal Confidentiality of Alcohol and Drug Abuse Patient Records regulations: The Federal rules restrict any use of the information to criminally investigate or prosecute any alcohol or drug abuse patient.[facility] [place]wood[place] the event this information is protected by the Federal Confidentiality of Alcohol and Drug Abuse Patient Records regulations: The Federal rules restrict any use of the information to criminally investigate or prosecute any alcohol or drug abuse patient.[facility] [place]wood[place] the event this information is protected by the Federal Confidentiality of Alcohol and Drug Abuse Patient Records regulations: The Federal rules restrict any use of the information to criminally investigate or prosecute any alcohol or drug abuse patient.[facility] [place] Reason for Visit (unrecogniz ed section and content) Reason Comments No Show Specialty Diagnoses / Procedures Referred By Sharon t Referred To Contact Diagnoses PTSD (post-traumatic stress disorder) JOSLYN (generalized anxiety disorder) Procedures PROVIDER ORDERED FOLLOW UP OFFICE/OUTPATIENT [facility] 60 MINUTES Jason Elena APRN.DONOR SUPPORT TECHNICIAN [address] [place] [address] Phone: tel: fax: Referral ID Status Reason Start Date Expiration Date Visits Requested Visits Authorized [id number] Authorized PCP Requested Referral 03/11/2025 02/25/2026 1 1 Reason Comments lmp 01/11 re hsg recommmended by Dr Elenita Jorgensen Reason Comments Question Reason Comments Crystal Slicer - Other OB Navigator po ol Reason Comments Patient Question Reason Comments Care Reason Comments Initial OB Visit Reason Comments Crystal Slicer - Other PRAF Reason Comments Bleeding With Specialty Diagnoses / Procedures Referred By Contac t Referred To Contact [facility] Diagnoses Early stage of Procedures OBSTETRIC ULTRASOUND WHI US PREG UTERUS AFTER 1ST TRIMEST GESTATION Alia Uribe MD [address] [place] [address] [facility] [address] [place] [address] Referral ID Status Reason Start Date Expiration Date Visits Requested Visits Authorized [id number] Authorized Auto-Generat ed Referral 10/02/2022 10/02/2023 1 1 Reason Onset Date Comments Care 10/23/2022 Reason Comments Follow Up Missed AB on 10/23/19 Reason Comments Establish Care virtual Specialty Diagnoses / Procedures Referred By Contac t Referred To Contact [facility] Diagnoses History of miscarriage Procedures SONOHYSTEROGRAPHY (SIS) US WHI SALINE INFUS SONOHYSTEROGRAPHY W/COLOR DOPPLER CATH & SALINE/CONTRAST SONOHYSTER/[place] [address] [place] [address] [facility] [address] [place] [address] Referral ID Status Reason Start Date Expiration Date Visits Requested Visits Authorized [id number] Authorized Benefit Check 05/15/2023 09/09/2023 3 3 Reason Comments Patient Update Reason Comments Cough Chest tightness, hea dache fever, x 2 days Reason Comments PRAF Initial PRAF Reason Comments Initial OB Visit Reason Onset Date Comments Refill Request 11/07/2023 Reason Onset Date Comments Care 11/23/2023 Reason Onset Date Comments Care 12/21/2023 Reason Comments US Specialty Diagnoses / Procedures Referred By Contac t Referred To Contact [facility] Diagnoses History of delivery Supervision of high risk in second trimester Hx of ectopic 14 weeks gestation of Obesity in Procedures OBSTETRIC ULTRASOUND WHI US PREG UTERUS AFTER 1ST TRIMEST GESTATION Alia Uribe MD [address] [place] [address] [facility] [address] [place] [address] Referral ID Status Reason Start Date Expiration Date V isits Requested Visits Authorized [id number] Closed Auto-Generate d Referral 12/21/2023 12/20/2024 1 1 Reason Onset Date Comments Care 01/23/2024 Specialty Diagnoses / Procedures Referred By Contac t Referred To Contact [facility] Diagnoses Suspected anomaly, antepartum, single or unspecified fetus Procedures AMNIOCENTESIS US WHI US GUIDANCE AMNIOCENTESIS IMSophia Nance&[place] [address] [place] [address] [facility] [address] [place] [address] Referral ID Status Reason Start Date Expiration Date V isits Requested Visits Authorized [id number] Closed Auto-Generate d Referral 01/23/2024 01/22/2025 1 1 Reason Comments PRAF Reason Comments Care Reason Comments Complex Family Planning Reason Comments PEAC Reason Comments Amniocentesis Results Reason Comments Complex Family Planning Coordination Checklist Reason Comments Procedure LAMS insert Reason Comments Post-Op Visit Reason Comments preconception consult Reason Comments POCUS Reason Comments PEAC IPAS Reason Comments Miscarriage Reason Comments Thyroid Problem Specialty Diagnoses / Procedures Referred By Contac t Referred To Contact Endocrinology Diagnoses Thyroid antibody positive Procedures CONSULT TO ENDOCRINOLOGY OFFICE/OUTPATIENT [facility] 60 MINUTES Suzi Franco DO [address] [place] [address] Referral ID Status Reason Start Date Expiration Date V isits Requested Visits Authorized [id number] Closed PCP Requested Referral 06/29/2024 06/29/2025 1 1 Reason Comments New Patient Abnormal Lab Specialty Diagnoses / Procedures Referred By Contac t Referred To Contact Rheumatology Diagnoses Recurrent loss Procedures CONSULT TO RHEUM/IMMUN DISEASE OFFICE/OUTPATIENT [facility] MDM 60 MINUTES Suzi Franco DO [address] [place] [address] Referral ID Status Reason Start Date Expiration Date V isits Requested Visits Authorized [id number] Closed PCP Requested Referral 07/04/2024 07/04/2025 1 1 Reason Comments Arthralgias Reason Comments PEAC- Viab pocus Reason Comments PEAC US Reason Onset Date Comments Refill Request 12/17/2024 Reason Comments Appointment Reason Comments Initial OB Visit Reason Comments Thyroid Problem Labs abnormal, 11 we eks 4 days Reason Onset Date Comments Care 01/13/2025 Reason Comments US Specialty Diagnoses / Procedures Referred By Contac t Referred To Contact [facility] Diagnoses Encounter for supervision of high risk in first trimester, antepartum (HCC) Procedures OBSTETRIC ULTRASOUND WHI US PREG UTERUS AFTER 1ST TRIMEST 1 GESTATION Bayron Nunez APRN.TONEY [address] [place] [address] Phone: tel: fax: [facility] [address] [place] [address] Referral ID Status Reason Start Date Expiration Date V isits Requested Visits Authorized [id number] Closed Auto-Generate d Referral 12/24/2024 12/24/2025 1 1 Reason Comments Follow Up Jose's Reason Onset Date Comments Care 02/05/2025 Referral ID Status Reason Start Date Expiration Date V isits Requested Visits Authorized [id number] Closed Auto-Generate d Referral 12/24/2024 12/24/2025 1 1 Reason Comments Follow Up Anxiety Posttraumatic Stress Disorder Specialty Diagnoses / Procedures Referred By Contac t Referred To Contact Diagnoses PTSD (post-traumatic stress disorder) JOSLYN (generalized anxiety disorder) Procedures PROVIDER ORDERED FOLLOW UP OFFICE/OUTPATIENT [facility] 60 MINUTES Jason Elena, JUNIOR.DONOR SUPPORT TECHNICIAN [address] [place] [address] Phone: tel: fax: Referral ID Status Reason Start Date Expiration Date V isits Requested Visits Authorized [id number] Closed PCP Requested Referral 02/12/2025 01/29/2026 1 1 Reason Comments Follow Up Anxiety Posttraumatic Stress Disorder Specialty Diagnoses / Procedures Referred By Contac t Referred To Contact Diagnoses PTSD (post-traumatic stress disorder) JOSLYN (generalized anxiety disorder) Procedures PROVIDER ORDERED FOLLOW UP OFFICE/OUTPATIENT [facility] 60 MINUTES Jason Elena, JUNIOR.DONOR SUPPORT TECHNICIAN [address] [place] [address] Phone: tel: fax: Referral ID Status Reason Start Date Expiration Date V isits Requested Visits Authorized [id number] Closed PCP Requested Referral 02/25/2025 02/11/2026 1 1 Reason Onset Date Comments Care 03/05/2025 Specialty Diagnoses / Procedures Referred By Contac t Referred To Contact [facility] Diagnoses Family history of trisomy 13 History of delivery affecting (HCC) History of reversal of tubal ligation History of delivery Supervision of high risk in second trimester (HCC) 16 weeks gestation of (HCC) Procedures OBSTETRIC ULTRASOUND WHI US PREG UTERUS AFTER 1ST TRIMEST GESTATION Iker Bonilla, JUNIOR.CNLeila [address] [place] [address] Phone: tel: fax: [address] [address] Referral ID Status Reason Start Date Expiration Date V isits Requested Visits Authorized [id number] Closed Auto-Generate d Referral 02/05/2025 02/05/2026 1 1 Reason Comments Appointment Cancelled Specialty Diagnoses / Procedures Referred By Conthumble t Referred To Contact Psychiatry / ADULT PSYCHIATRY Diagnoses Follow up Procedures VIDEO PSYC/PSYL EST [facility] [address] [place] [address] Phone: tel: Jason Elena, JUNIOR.DONOR SUPPORT TECHNICIAN [address] [facility] [address] [place] [address] Phone: tel: fax: Referral ID Status Reason Start Date Expiration Date V isits Requested Visits Authorized [id number] New Request 03/12/2025 09/09/2025 99 99 Reason Comments OB UTI Specialty Diagnoses / Procedures Referred By Garyac t Referred To Contact Psychiatry / ADULT PSYCHIATRY Diagnoses Follow up Procedures VIDEO PSYC/PSYL EST [facility] [address] [place] [address] Phone: tel: Jason Elena APRN.DONOR SUPPORT TECHNICIAN [address] [place] [address] Phone: tel: fax: Reason Onset Date Comments Care 03/19/2025 Care Teams (unrecognized sec tion and content) Supply Chain Associate Relationship Specialty Start Date End Date Maryjo Anguiano [address] [place] [facility] [address] PCP - General Family Practice 05/20/21 Supply Chain Associate Relationship Specialty Start Date End Date Maryjo Anguiano [address] [place] [address] PCP - General Family Practice 05/20/21 Supply Chain Associate Relationship Specialty Start Date End Date Maryjo Anguiano [address] [place] [address] PCP - General Family Practice 05/20/21 Supply Chain Associate Relationship Specialty Start Date End Date Maryjo Anguiano [address] [facility] [place] [address] PCP - General Family Practice 05/20/21 Supply Chain Associate Relationship Specialty Start Date End Date Maryjo Anguiano [address] [place] [address] PCP - General Family Practice 05/20/21 Supply Chain Associate Relationship Specialty Start Date End Date Maryjo Anguiano [address] [place] [address] PCP - General Family Medicine 05/20/21 Supply Chain Associate Relationship Specialty Start Date End Date Maryjo Anguiano [address] [place] [facility] [place] [address] PCP - General Family Medicine 05/20/21 Supply Chain Associate Relationship Specialty Start Date End Date Maryjo Anguiano [address] [facility] [address] PCP - General Family Medicine 05/20/21 Supply Chain Associate Relationship Specialty Start Date End Date Maryjo Anguiano [address] [facility] [address] (Fax) PCP - General Family Medicine 05/20/21 Supply Chain Associate Relationship Specialty Start Date End Date Maryjo Anguiano [address] [place] [address] PCP - General Family Medicine 05/20/21 Supply Chain Associate Relationship Specialty Start Date End Date Maryjo Anguiano [address] [facility] [address] PCP - General Family Medicine 05/20/21 Supply Chain Associate Relationship Specialty Start Date End Date Maryjo Anguiano [address] [facility] [address] PCP - General Family Medicine 05/20/21 Supply Chain Associate Relationship Specialty Start Date End Date Maryjo Anguiano [address] [facility] [address] PCP - General Family Medicine 05/20/21 Supply Chain Associate Relationship Specialty Start Date End Date Maryjo Anguiano [address] [facility] [address] PCP - General Family Medicine 05/20/21 Supply Chain Associate Relationship Specialty Start Date End Date Maryjo Anguiano [address] [facility] [address] PCP - General Family Medicine 05/20/21 Supply Chain Associate Relationship Specialty Start Date End Date Maryjo Anguiano [address] [place] [address] PCP - General Family Medicine 05/20/21 Supply Chain Associate Relationship Specialty Start Date End Date Maryjo Anguiano [address] [place] [address] PCP - General Family Medicine 05/20/21 Supply Chain Associate Relationship Specialty Start Date End Date Maryjo Anguiano CNP [address] [place] [address] PCP - General Family Medicine 05/20/21 Supply Chain Associate Relationship Specialty Start Date End Date Maryjo Anguiano CNP [address] [place] [address] PCP - General Family Medicine 05/20/21 Supply Chain Associate Relationship Specialty Start Date End Date Maryjo Anguiano CNP [address] [place] [address] PCP - General Family Medicine 05/20/21 Supply Chain Associate Relationship Specialty Start Date End Date Maryjo Anguiano CNP [address] [place] [address] PCP - General Family Medicine 05/20/21 Supply Chain Associate Relationship Specialty Start Date End Date Maryjo Anguiano CNP [address] [place] [address] PCP - General Family Medicine 05/20/21 Supply Chain Associate Relationship Specialty Start Date End Date Maryjo Anguiano CNP [address] [place] [address] PCP - General Family Medicine 05/20/21 Supply Chain Associate Relationship Specialty Start Date End Date Maryjo Anguiano CNP [address] [place] [address] PCP - General Family Medicine 05/20/21 Supply Chain Associate Relationship Specialty Start Date End Date Maryjo Anguiano CNP [address] [place] [address] PCP - General Family Medicine 05/20/21 Supply Chain Associate Relationship Specialty Start Date End Date Maryjo Anguiano CNP [address] [place] [address] PCP - General Family Medicine 05/20/21 Supply Chain Associate Relationship Specialty Start Date End Date Maryjo Anguiano CNP [address] [place] [address] PCP - General Family Medicine 05/20/21 Supply Chain Associate Relationship Specialty Start Date End Date Maryjo Anguiano CNP [address] [place] [address] PCP - General Family Medicine 05/20/21 Supply Chain Associate Relationship Specialty Start Date End Date Maryjo Anguiano CNP [address] [place] [address] PCP - General Family Medicine 05/20/21 Supply Chain Associate Relationship Specialty Start Date End Date Maryjo Anguiano CNP [address] [place] [address] PCP - General Family Medicine 05/20/21 Supply Chain Associate Relationship Specialty Start Date End Date Maryjo Anguiano CNP [address] [place] [address] PCP - General Family Medicine 05/20/21 Supply Chain Associate Relationship Specialty Start Date End Date Maryjo Anguiano CNP [address] [place] [address] PCP - General Family Medicine 05/20/21 Supply Chain Associate Relationship Specialty Start Date End Date Maryjo Anguiano CNP [address] [place] [address] PCP - General Family Medicine 05/20/21 Supply Chain Associate Relationship Specialty Start Date End Date Maryjo Anguiano CNP [address] [place] [address] PCP - General Family Medicine 05/20/21 Supply Chain Associate Relationship Specialty Start Date End Date Maryjo Anguiano CNP [address] [place] [address] PCP - General Family Medicine 05/20/21 Supply Chain Associate Relationship Specialty Start Date End Date Maryjo Anguiano CNP [address] [place] [address] PCP - General Family Medicine 05/20/21 Supply Chain Associate Relationship Specialty Start Date End Date Maryjo Anguiano CNP [address] [place] [address] PCP - General Family Medicine 05/20/21 Supply Chain Associate Relationship Specialty Start Date End Date Maryjo Anguiano CNP [address] [place] [address] PCP - General Family Medicine 05/20/21 Supply Chain Associate Relationship Specialty Start Date End Date Maryjo Anguiano CNP [address] [place] [address] PCP - General Family Medicine 05/20/21 Supply Chain Associate Relationship Specialty Start Date End Date Maryjo Anguiano CNP [address] [place] [address] PCP - General Family Medicine 05/20/21 Supply Chain Associate Relationship Specialty Start Date End Date Maryjo Anguiano CNP [address] [place] [address] PCP - General Family Medicine 05/20/21 Supply Chain Associate Relationship Specialty Start Date End Date Maryjo Anguiano CNP [address] [place] [address] PCP - General Family Medicine 05/20/21 Supply Chain Associate Relationship Specialty Start Date End Date Maryjo Anguiano CNP [address] [place] [address] PCP - General Family Medicine 05/20/21 Supply Chain Associate Relationship Specialty Start Date End Date Maryjo Anguiano CNP [address] [place] [address] PCP - General Family Medicine 05/20/21 Supply Chain Associate Relationship Specialty Start Date End Date Maryjo Anguiano CNP [address] [place] [address] PCP - General Family Medicine 05/20/21 Supply Chain Associate Relationship Specialty Start Date End Date Maryjo Anguiano CNP [address] [place] [address] PCP - General Family Medicine 05/20/21 Supply Chain Associate Relationship Specialty Start Date End Date Maryjo Anguiano CNP [address] [place] [address] PCP - General Family Medicine 05/20/21 Supply Chain Associate Relationship Specialty Start Date End Date Maryjo Anguiano CNP [address] [place] [address] PCP - General Family Medicine 05/20/21 Supply Chain Associate Relationship Specialty Start Date End Date Maryjo Anguiano CNP [address] [place] [address] PCP - General Family Medicine 05/20/21 Supply Chain Associate Relationship Specialty Start Date End Date Maryjo Anguiano CNP [address] [place] [address] PCP - General Family Medicine 05/20/21 Supply Chain Associate Relationship Specialty Start Date End Date Maryjo Anguiano CNP [address] [place] [address] PCP - General Family Medicine 05/20/21 Supply Chain Associate Relationship Specialty Start Date End Date Maryjo Anguiano CNP [address] [place] [address] PCP - General Family Medicine 05/20/21 Supply Chain Associate Relationship Specialty Start Date End Date Maryjo Anguiano CNP [address] [place] [address] PCP - General Family Medicine 05/20/21 Supply Chain Associate Relationship Specialty Start Date End Date Maryjo Anguiano CNP [address] [place] [address] PCP - General Family Medicine 05/20/21 Supply Chain Associate Relationship Specialty Start Date End Date Maryjo Anguiano CNP [address] [place] [address] PCP - General Family Medicine 05/20/21 Supply Chain Associate Relationship Specialty Start Date End Date Maryjo Anguiano CNP [address] [place] [address] PCP - General Family Medicine 05/20/21 Supply Chain Associate Relationship Specialty Start Date End Date Maryjo Anguiano CNP [address] [place] [facility] [address] PCP - General Family Medicine 05/20/21 Supply Chain Associate Relationship Specialty Start Date End Date Maryjo Anguiano CNP [address] [facility] [place] [address] PCP - General Family Medicine 05/20/21 Supply Chain Associate Relationship Specialty Start Date End Date Maryjo Anguiano CNP [address] [facility] [place] [address] PCP - General Family Medicine 05/20/21 Supply Chain Associate Relationship Specialty Start Date End Date Maryjo Anguiano CNP [address] [place] [facility] [address] PCP - General Family Medicine 05/20/21 Supply Chain Associate Relationship Specialty Start Date End Date Maryjo Anguiano CNP [address] [place] [facility] [address] PCP - General Family Medicine 05/20/21 Team Status: Active Member Role/Relationship Status Dates Maryjo Anguiano DICTAPHONE TRANSCRIBER, DICTAPHONE TRANSCRIBER-C Primary Care Provider Active Team Status: Inactive Member Role/Relationship Status Dates Maryjo Anguiano DICTAPHONE TRANSCRIBER, DICTAPHONE TRANSCRIBER-C Primary Care Provider Active Start: March 18, 2025 End: March 18, 2025 Maryjo Anguiano DICTAPHONE TRANSCRIBER, DICTAPHONE TRANSCRIBER-C Referring Provider Active S tart: March 18, 2025 End: March 18, 2025 Kirill LUNA, PA Attending Provider Active Start: March 18, 2025 End: March 18, 2025 Supply Chain Associate Relationship Specialty Start Date End Date Maryjo Anguiano CNP [address] [place] [facility] [address] PCP - General Family Medicine 05/20/21 Supply Chain Associate Relationship Specialty Start Date End Date Silvio Maryjo Horner CNP [address] [place] [address] PCP - General Family Medicine 05/20/21 Goals (unrecognized section and content) Goals may be documented in a n alternate section FOR RECORDS PERTAINING TO PATIENTS WHO ARE OR HAVE BEEN ENROLLED IN A CHEMICAL DEPENDENCY/SUBSTANCEABUSE PROGRAM, SOME INFORMATION MAY BE OMITTED. This clinical summary was aggregated from multiple sources. Caution should be exercised in using it in the provision of clinical care. This summary normalizes information from multiple sources, and as a consequence, information in this document may materially change the coding, format and clinical context of patient data. In addition, data may be omitted in some cases. CLINICAL DECISIONS SHOULD BE BASED ON THE PRIMARY CLINICAL RECORDS. [facility]. provides no warranty or guarantee of the accuracy or completeness of information in this document.
[2025-03-22] MEDS: Lidocaine 1% /Epi 1:100 (20ml) 20 ML Vial 10 ML INFILT (14:41)
[2025-03-22 15:00] VITALS: BP 96/48; PULSE 89; RESP 14; TEMP 36.8; O2SAT 95
[2025-03-22 15:03] VITALS: BP 106/67; PULSE 90; RESP 16; TEMP 36.8; O2SAT 96
[2025-03-22 15:22] VITALS: BP 96/48; PULSE 72; RESP 17; TEMP 37.1; O2SAT 97
== END 2025-03-22 15:24 | disposition home or self-care (01) ==
PROVIDERS: Emergency Provider Emergency Medicine; PCP Nurse Practitioner Family; Visit Provider Emergency Medicine
DX: O99.712 Diseases of the skin and subcutaneous tissue complicating pregnancy, second trimester (principal); O99.332 Smoking (tobacco) complicating pregnancy, second trimester; L02.91 Cutaneous abscess, unspecified; F17.200 Nicotine dependence, unspecified, uncomplicated; Z3A.22 22 weeks gestation of pregnancy; Z98.51 Tubal ligation status
CPT/HCPCS: 99282

== ENCOUNTER 2025-07-06 13:06 | Inpatient (IN) | payer MEDICAID, SELFPAY ==
[2025-07-06] VITALS (14 sets, daily range): BP systolic 110–134; BP diastolic 62–93; PULSE 73–88; RESP 16–18; TEMP 36.1–36.9; O2SAT 92–99; BMI 42.3
--- NOTE | 2025-07-06 12:22 | HP.PCM.OB_ITS ---
HPI - General General Date of Admission: 07/06/25 HPI Narrative TANYA FREDERICK, is a 35 F @ 37+4 weeks who was seen in office for routine care- h/o GMDA2 and Gestational HTN. discussion with patient regarding recommendation for delivery since dx of Gest HTN. Pt agreeable. denies COLLIER, visual changes or RUQ pain. PFSH PFSH Medical History Ectopic Anxiety Asthma Home Medications ?Medication ?Instructions ?Recorded ?Last Taken ?Type 1 cap PO/SL DAILY 09/06/21 U nknown History amoxicillin 875 mg-potassium 1 tab PO BID #14 tabs 06/04 Unknown Rx clavulanate 125 mg tablet buspirone 7.5 mg tablet 7.5 mg PO TID 03/18/25 Unkno wn History cholecalciferol (vitamin D3) 25 25 mcg PO QDAY 5 Unknown History mcg (1,000 unit) capsule mirtazapine 30 mg tablet 30 mg PO QHS 03/18/25 Unknow n History clindamycin HCl 300 mg capsule 300 mg PO Q6H #20 CAPSU LES 03/22/25 Unknown Rx (Cleocin HCl) ferrous sulfate 325 mg (65 mg 325 mg PO DAILY 03/22/25 Unknown History iron) tablet (FeroSul) Allergy/AdvReac Type Severity Reaction Status Date / Time Sulfa (Sulfonamide Allergy Severe Anaphylaxis Verified 07/06/25 12:21 Antibiotics) Family History Mother Rheumatoid arthritis Unknown Asthma Diabetes Heart disease Surgical History History of tubal ligation History of delivery History of tonsillectomy and adenoidectomy Social History household members: significant other and children number of children: 3 current occupational status: employed current occupation: [employer] history of recent travel: No sexually active: Yes Smoking Status: Light Smoker (<10/day) alcohol intake: current alcohol intake frequency: holidays/special occasions only substance use type: does not use diet: low carbohydrate what type of physical activity do you participate in: running seatbelt use: always do you feel safe at home: Yes additional social history: History 4 Elective abortions Hx Para 3 Spontaneous abortions Hx # Term Pregnancies Ectopic pregnancies Hx # Pregnancies Multiple births # of living children 3 Past Pregnancies Del. Date Name GA/Weeks Outcome Route Bth Weight [facility] Ignacio Jacob 2010 Unknown Rogers Christensen 2014 Unknown Corkyowen Fermin 2018 NST FHR Rate Baby A Baseline: 140 Variability:: Moderate Accelerations:: 15 x 15 Decelerations:: None NST Reactive:: Yes FHR Category:: Category I Uterine Activity:: no ctx Vital Signs Vital Signs Vital Signs: Weight Weight: 118.841 kg Body Mass Index (BMI) 42.3 Physical Exam Const alert and oriented x3 General Appearance: cooperative HEENT normocephalic GI GI Narrative: Gravid, non tender to palpation. OB / External & Speculum: external exam normal Extremity normal to inspection Skin no rashes or lesions noted Neuro oriented x3 and CN's II-XII intact bilaterally Psych Appearance: grossly normal Labs Labs Labs: Blood Type O POSITIVE Antibody Screen NEGATIVE Hct, (37-47) 30.8 % L Hgb, (12.0-15.0) 10.4 g/dL L Obstetrics Ultrasound Rubella IgG Antibody 141.6 IU/mL Hep Bs Antigen, (Negative) Negative Hepatitis C Ab (EIA), (0.0-0.9) <0.1 s/co ratio Chlamydia DNA (TAMMIE), (Negative) Negative N.gonorrhoeae DNA (TAMMIE), (Negative) Negative Glucose 1 Hr 50 gm, (70-140) 164 mg/dL H Gest Glucose Tolerance MG/DL Group B Strep DNA, (Negative) Negative Rhogam given: No Assessment & Plan (1) Gestational hypertension: (2) Obesity affecting : (3) Previous delivery affecting : (4) Gestational diabetes requiring insulin: PLAN: Plan Admit to L&D [place] FHR/TOCO per protocol monitor VS Monitor BS Ancef 3g planned cs today NPO status 4pm
[2025-07-06] MEDS: Lactated Ringers 1,000 ML 999 ML IV (13:00)
[2025-07-06 13:34] LABS: Hematocrit 34.3 % (37-47); Hemoglobin 11.2 g/dL (12.0-15.0); Immature Granulocytes Count 0.100 X10^3/uL (0.0-0.0); Mean Corp Hgb Conc 32.7 g/dL (32-36); Mean Corpuscular Volume 86.0 fL (81-99); Mean Platelet Vol. 9.9 fl (6.2-12.0); NRBC Flagged by Analyzer 0 % (0-5); Platelet Count 249 K/mm3 (150-450); RBC Distribution Width CV 15.0 % (11.6-14.6); RBC Distribution Width SD 47.0 fl (35.1-43.9); Red Blood Count 3.99 M/mm3 (4.2-5.4); White Blood Count 9.0 K/mm3 (4.4-11.0)
[2025-07-06 13:56] LABS: Creatinine, Urine (random) 25.20 mg/dL (28.00-217.00); Protein, Urine (Random) 12.0 mg/dL (0.0-12.0); Protein:Creat Ratio 476 mg/g CRE (0-200)
[2025-07-06 14:10] LABS: AST(SGOT) 16 U/L (<=31); Alanine Aminotransfer ALT/SGPT 10 U/L (<=34); Estimated Creatinine Clearance 190.89 ml/min (50-250); Syphilis Antibodies Nonreactive (Nonreactive); Uric Acid 3.0 mg/dL (2.6-6.0)
[2025-07-06] MEDS: Lactated Ringers 1,000 ML 150 ML IV (15:16)
[2025-07-06] MEDS: Cefazolin 1 GM/5 ML Vial 3 GM IV (16:16)
[2025-07-06] MEDS: morphine PF (epidural) 5 MG/10 ML Vial EPIDURAL (16:18)
[2025-07-06] MEDS: 0.9% Normal Saline (1000mL) 350 ML IV (16:38)
--- NOTE | 2025-07-06 16:55 | OP.PCM_ITS ---
Operative Report (OB) Procedure Details Date of Procedure: 07/06/25 Procedure Start Time: 16:24 Procedure Stop Time: 16:53 Time of Delivery: 16:28 Pre-Operative Diagnosis: Repeat Elective Post-Operative Diagnosis: Same as Pre-operative diagnosis Classification: Scheduled Type of Anesthesia: Spinal Antibiotic Given: Ancef 3 grams IV x1 Drain: Stewart to straight drain Estimated Blood Loss: 600 Fluids Replaced: 1000 Findings Description of surgery: After informed consent was obtained the patient was taken the operating room she was given spinal anesthesia. She was then placed in the supine position. She was prepped and draped in the normal sterile fashion. Anesthesia was found to be adequate. At this time a Pfannenstiel skin incision was made with a knife was carried down to the underlying layer of the fascia. The fascial incision was then extended laterally using oliva scissor. Attention was then turned to the superior aspect of the fascial edge was grasped with 2 straight Matthew clamps tented up and the rectus muscle dissected off sharply. Rectus muscles were then in the midline bluntly and peritoneum was entered bluntly. Gentle opposing traction was placed. At this time the vesicouterine peritoneum was identified. Bladder adhesions taken down. Scalpel was used to make a uterine incision in a low transverse fashion. The uterus was then entered bluntly gentle opposing traction was placed to extend this incision. Membranes were ruptured clear. 's head was brought to the uterine incision was delivered atraumatically. Infant was vigorous at delivery and delayed cord clamping performed. Cord was clamped and cut was handed to the waiting nursery team. The Placenta was removed from the uterus. The uterus was then removed from the abdominal cavity. The uterus was cleared of all clots and debris using a lap. At this time the uterine incision was reapproximated using #1 Vicryl in a running locked fashion. Hemostasis was appreciated. Posterior cul-de-sac was then cleared of all clots and debris. Uterus was placed back in the abdominal cavity. Gutters were cleared of all clots and debris. Uterine incision was reevaluated and noted to be of excellent hemostasis. Hemoblast placed over incision. Right tube surgically absent. Left tube appears normal. both ovaries appear normal. At this time the peritoneum was grasped with Kellys reapproximated using #2 Vicryl suture in a running fashion. Fascia was then reapproximated using #1 PDS in a running fashion. Subcu layer was irrigated with NS and hemoblast placed, it was then reapproximated with #2 0 plain gut suture in an interrupted fashion. Subcu layer was closed using 4-0 Monocryl in a subcu fashion. Dry sterile dressing was applied. Instrument lap needle count correct ?2. Anticipated normal postoperative course. Surgical findings: normal ovaries bilaterally. Right tube surgically absent. left tube appears normal. Presentation: Vertex Amniotic Membrane Rupture Type: Artificial Amniotic Fluid Description: Clear Placental Delivery Description: Expressed Placenta Disposition: [facility] Specimen collected: No Cord Vessel Description: 3 Vessels Cord Entanglement: None A gender: Female (1 minute): 9 (5 minute): 9 Delayed Cord Clamping: Yes [employer] Construction Worker health and safety coordinator: Yes Bagger Meat: Bárbara Thomas Tasks completed by first aid nurse: Closing, Dissecting tissue and Retracting Additional perinatal breastfeeding assistant?: No Complications Complications: No
[2025-07-06] MEDS: Oxytocin 15 Units/NS 250ml 15 UNITS/250 ML IV.SOLN 83 UNITS IV (17:10)
[2025-07-06] MEDS: Ketorolac 30 MG/ML Syringe IV ×2 (17:28→23:18)
[2025-07-06] MEDS: 0.9% Saline Lock 10 ML Syringe IV (23:18)
[2025-07-07] VITALS (9 sets, daily range): BP systolic 101–144; BP diastolic 68–83; PULSE 71–91; RESP 14–16; TEMP 36.1–36.7; O2SAT 94–100
[2025-07-07] MEDS: 0.9% Saline Lock 10 ML Syringe IV (05:16)
[2025-07-07] MEDS: Ketorolac 30 MG/ML Syringe IV ×2 (05:16→11:06)
[2025-07-07 05:57] LABS: Hematocrit 28.7 % (37-47); Hemoglobin 9.3 g/dL (12.0-15.0); Mean Corp Hgb Conc 32.4 g/dL (32-36); Mean Corpuscular Volume 87.0 fL (81-99); Mean Platelet Vol. 9.5 fl (6.2-12.0); Platelet Count 199 K/mm3 (150-450); RBC Distribution Width CV 15.1 % (11.6-14.6); RBC Distribution Width SD 48.3 fl (35.1-43.9); Red Blood Count 3.30 M/mm3 (4.2-5.4); White Blood Count 8.9 K/mm3 (4.4-11.0)
--- NOTE | 2025-07-07 08:32 | PCM.PN.OB ---
Subjective Subjective Pain controlled Objective Data Objective Data Vital Signs: Vital Signs Temp Pulse Resp BP Pulse Ox O2 Del Method 97.6 F L 80 16 122/70 H 99 Room Air 07/07/25 08:25 07/07/25 08:25 07/07/25 08:25 07/07/25 08:25 07/07/25 08:25 07/07/25 08:25 Oxygen Delivery Method Room Air Weight: 262 lb Body Mass Index (BMI) 42.3 Intake & Output: Intake and Output for Last 24 Hours 07/05/25 07/06/25 07/07/25 23:59 23:59 23:59 Intake Total 2037.5 / 2037.5 Output Total 3450 / 3650 700 / 700 Balance -1412.5 / -1612.5 -700 / -700 Lab / Micro Data 07/07/25 05:40 07/06/25 13:00 Labs: Laboratory Results - last 24 hr 07/06/25 13:00: WBC 9.0, RBC 3.99 L, Hgb 11.2 L, Hct 34.3 L, MCV 86.0, MCH 28.1, MCHC 32.7, RDW Std Deviation 47.0 H, RDW Coeff of Lauren 15.0 H, Plt Count 249, MPV 9.9, Immature Gran % (Auto) 1.100 H, Neut % (Auto) 72.8 H, Lymph % (Auto) 18.2 L, [place] % (Auto) 7.3, Eos % (Auto) 0.3, Baso % (Auto) 0.3, Absolute Neuts (auto) 6.6, Absolute Lymphs (auto) 1.64, Nucleated RBC % 0, Creatinine 0.55 L, Estim Creat Clear Calc 190.89, Est GFR (MDRD) Non-Af 124, Uric Acid 3.0, AST 16, ALT 10, U Random Total Protein 12.0, Urine Creatinine 25.20 L, Protein/Creatinin Ratio 476 H, Syphilis Total Ab Nonreactive, Blood Type O POSITIVE, Antibody Screen NEGATIVE 07/06/25 14:05: POC Glucose 79 07/06/25 18:06: POC Glucose 91 07/07/25 05:14: POC Glucose 90 07/07/25 05:40: WBC 8.9, RBC 3.30 L, Hgb 9.3 L, Hct 28.7 L, MCV 87.0, MCH 28.2, MCHC 32.4, RDW Std Deviation 48.3 H, RDW Coeff of Lauren 15.1 H, Plt Count 199, MPV 9.5 Physical Exam Const alert, oriented x3 and no apparent distress HEENT normocephalic GI soft to palpation, non-tender and non-distended GI Narrative: fundus firm, mid & below umbilicus Incision - bandage c/d/i Extremity normal to inspection and no calf tenderness Assessment & Plan (1) Gestational diabetes requiring insulin: COMMENT: PPD#1 (2) Previous delivery affecting : (3) Gestational hypertension: QUALIFIERS: Trimester: unspecified trimester Qualified Code(s): O13.9 - Gestational [-induced] hypertension without significant proteinuria, unspecified trimester (4) Anemia: QUALIFIERS: Anemia type: iron deficiency Iron deficiency anemia type: unspecified iron deficiency Qualified Code(s): D50.9 - Iron deficiency anemia, unspecified PLAN: Plan GDM - FBS this am normal Heme - reviewed CBC & will continue iron for anemia of ID - AF, no signs infection Gestational hypertension - BP's normal since delivery GI/ - no issues
[2025-07-07] MEDS: Senna/Docusate Sodium 1 Tablet PO (09:22)
--- NOTE | 2025-07-07 15:38 | CASEMGMT ---
Social Work Assessment Labor and Delivery Unit Patient Address: [address] [place] [address] [address] [place] [address] Phone number: [phone] Date of Referral: 07/06/25 Time of Referral:? 1951 Referred By: Dr. Shah Date of Intervention: ??07/07/25 Time of Intervention:? 1029 Reason for Referral:? mental health Sw completed chart review and acknowledges social work consult due to maternal mental health. Sw presented to bedside and introduced self to mother of baby, MARIE- Lucie and father of baby, ANGELA- Emmanuel. Sw explained reason for sw involvement and completed psychosocial assessment. History obtained from: medical records, MOB and ANGELA Household composition: Currently residing in the home is ANGELA SALAZAR, MARIE's three older children: Juan (14), Rogers (10) and Kathy (7). baby to be included in the home when ready for discharge. Parents deny any problems or concerns with housing, stating that it is safe and secure. Patient's parent/guardian status:? MARIE states that she and ANGELA were introduced to each other by family members who knew each other. No concerns reported of domestic violence or intimate partner violence. [place] baby is first baby for parents together. ? Medical History: ?MARIE is 35 year old female who is 9, para 3- now 4 following labor and delivery of . MARIE received routine care during with [facility]. MARIE presented to hospital on 07/06/25 for repeat at 37 weeks gestation. Baby girl, named Nash Molina was born weighing 7lb and 2oz and had apgars of 9 and 9 at one and and five minutes of life, respectfully. MARIE reports that baby will be followed by Dr. Apoorva Anguiano for pediatrics. Educational Status:? Both parents graduated from high school and ANGELA has his associates degree. No problems with reading, learning or comprehension reported. Financial Status: Both parents are financially employed, ANGELA is a residential direct support professional and is able to take a couple of days off of work. 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 Infant Supplies:??All necessary baby supplies obtained, including: car seat, safe sleep space, clothes, diapers and wipes. Childcare/Caregiver(s):? MARIE reports that she and ANGELA will be the primary care givers to baby along with family members when both parents are at work. Transportation:?? Both parents have their drivers license and reliable means of transportation. Programs/Agencies Involved: ??MARIE has [employer] insurance and WIC. MOB is also connected to Behavioral Health Services through [facility]. ? Children Services/Legal Issues:??? No history of Children Services involvement, no issues or concerns warranting referral to be made at this time. Behavioral Health Issues: ??Mental Health History: FOPeter denies mental health history. MARIE states that she has been diagnosed with anxiety and states that she has struggled with in the past. MOB reports that there were not any specific triggers that she can note. MOB states that ??? Substance Use History:?? Family History:? Drug Screens: ?? Family/Social Stressors:? Support Systems: Depression/Shaken Baby/Safe Sleeping:? ASSESSMENT:? Safe Plan of Care for infant related to substance use:? PLAN:? No other services requested or indicated. MOB and baby to be discharged when medically ready. Parents were provided literature regarding: signs and symptoms of baby blues and mood and anxiety disorders, Help Me Grow, shaken baby prevention, ABCs of safe sleep and a list of county resources that are available for them should any needs present themselves.
[2025-07-08] VITALS (8 sets, daily range): BP systolic 127–155; BP diastolic 71–97; PULSE 95–104; RESP 16; TEMP 36.5–36.6; O2SAT 97–99
--- NOTE | 2025-07-08 08:39 | PN.OBGYN_ITS ---
Subjective Subjective Doing well. Ambulating and voiding without difficulty. Mild lochia. Bottle feeding. Labetalol started over night Objective Data Objective Data Vital Signs: Vital Signs Temp Pulse Resp BP Pulse Ox O2 Del Method 97.8 F 99 16 136/71 H 97 Room Air 07/08/25 08:26 07/08/25 08:26 07/08/25 08:26 07/08/25 08:26 07/08/25 08:26 07/08/25 08:26 Oxygen Delivery Method Room Air Weight: 118.841 kg Body Mass Index (BMI) 42.3 Intake & Output: Intake and Output for Last 24 Hours 07/06/25 07/07/25 07/08/25 23:59 23:59 23:59 Intake Total 2037.5 / 2037.5 Output Total 3450 / 3650 700 / 700 Balance -1412.5 / -1612.5 -700 / -700 Lab / Micro Data 07/07/25 05:40 07/06/25 13:00 ROS Constitutional Constitutional: Denies headache(s) Cardiovascular Cardiovascular: Denies chest pain or dyspnea Gastrointestinal Gastrointestinal: Denies nausea or vomiting Genitourinary Genitourinary: Denies dysuria Physical Exam Const alert, oriented x3 and no apparent distress General Appearance: cooperative and comfortable Eyes PERRL and EOMs intact bilaterally Resp normal respiratory effort GI soft to palpation and non-tender GI Narrative: soft, moderate distention, fundus firm, appropriately tender. Abdominal bandage clean dry and intact Uterus Palpation: uterus fundus firm ( below umbilicus) Extremity normal to inspection and full ROM Neuro oriented x3 and CN's II-XII intact bilaterally Psych mental status grossly normal Assessment & Plan (1) Gestational diabetes requiring insulin: COMMENT: PPD#1 (2) Previous delivery affecting : (3) Gestational hypertension: QUALIFIERS: Trimester: unspecified trimester Qualified Code(s): O 13.9 - Gestational [-induced] hypertension without significant proteinuria, unspecified trimester (4) S/P : PLAN: Plan Continue to monitor BP Nexplanon before discharge
[2025-07-08] MEDS: Senna/Docusate Sodium 1 Tablet PO (11:29)
--- NOTE | 2025-07-08 12:07 | CASEMGMT ---
Social Work Assessment Labor and Delivery Unit Patient Address: [address] [place] [address] [address] [place] [address] Phone number: [phone] Date of Referral: 07/06/25 Time of Referral:? 1951 Referred By: Dr. Shah Date of Intervention: ??07/07/25 Time of Intervention:? 0 Reason for Referral:? mental health Sw completed chart review and acknowledges social work consult. Sw presented to bedside and introduced self to mother of baby, MARIE- Lucie and father of baby, ANEGLA- Emmanuel. Sw explained reason for sw involvement and completed psychosocial assessment. History obtained from: medical records, MOB and FOB Household composition: Currently residing in the family home is MARIE, ANGELA, MARIE's three older children: Candido (14), Rogers (10), and Kathy (7). [place] baby to be included in residence when ready for discharge. MARIE denies any problems or concerns with housing, stating that it is safe and secure. Patient's parent/guardian status:?MARIE reports that she and ANGELA were introduced to each other through family members who knew one another, they have been together for 6 years. [place] baby is first baby for parents together. No concerns reported of domestic violence or intimate partner violence. Medical History: ?MARIE is 35 year old female who is 9, para 3- now 4 following labor and delivery of . MARIE received routine care during with [facility]. MARIE presented to hospital for repeat on 07/06/28 at 37 weeks gestation. Baby girl, named Nash Molina, was born weighing 7lbs and 2oz with apgars of 9 and 9 at one and five minutes of life, respectfully. MARIE is using a combination of feeding baby, and reports that she will be followed by Dr. Apoorva Anguiano for pediatric follow up. Educational Status:?Both parents graduated from high school, no issues with reading, learning or comprehension. Financial Status: Both parents are gainfully employed outside of the home. ANGELA works as a grain i farmworker, and MOB is a diagnostic technician. Infant Supplies:?? All necessary baby supplies obtained, including: car seat, safe sleep space, clothes, diapers and wipes. Childcare/Caregiver(s):? MARIE and ANGELA will be the primary caregivers to baby Transportation:??Both parents have their drivers license and reliable means of transportation, no barriers Programs/Agencies Involved: ??MARIE is connected to [employer] insurance through [employer], and WIC. ? Children Services/Legal Issues:? No history of children services involvement, no issues or concerns warranting referral to be made at this time. ?? Behavioral Health Issues: ??Mental Health History: FOB denies mental health history. MOB states that she has been diagnosed with anxiety, and is prescribed BuSpar and Mirtazapine. MOB also informed sw that she had a 22 week demise last September, and the baby had Trisomy 21. MARIE reports that she took that loss really bad, and had really bad depression after that. MOB states that she also has experienced following a couple of her other deliveries. MOB is connected to [facility]'s [facility]al health Services at [facility]. ??? Substance Use History: Parents deny substance use prior to and during . ?? Family History:?Parents deny family history of addiction and significant mental health history. ? Drug Screens: No drug screens observed while completing chart review. ?? Family/Social Stressors:? Parents deny any problems, concerns or stressors at this time. Support Systems: MARIE states that her mother in law, and her best friend, Celia, are her biggest supports. Depression/Shaken Baby/Safe Sleeping:? Isela educated parents on signs and symptoms of baby blues and mood and disorders to be on the look out for during this period. MOB states that she is aware of what to be on the look out for. MOB states that she and FOB have talked about what her most common symptoms are, and FOB knows how to help her. MOB informed sw that there are not any specific triggers that she has. MOB also states that when she has experienced in the past, her symptoms were different each time. Sometimes she was anxious, other times she was numb, or withdrawn. MOB states that when she experienced her 22 week demise, was when she really went downhill and was depressed, and she got connected to Women's Behavioral Health at [facility]. MOB states that the medication has also been extremely helpful, and she has future appointments scheduled with her therapist. Isela empathized with MOB regarding her loss and provided her with information regarding the [facility] August. Sw educated parents on shaken baby prevention and ABCs of safe sleep, they expressed understanding. ASSESSMENT:? MOB and baby admitted following labor and delivery. MOB with mental health history positive for anxiety and depression. MOB is prescribed medication to help her manage her symptoms and is also connected to community mental health supports. While meeting with parents MOB was sitting comfortably in reclining chair, paternal grandma was holding baby who was asleep throughout assessment and MOB stated it was okay to complete assessment with visitor present and FOB was laying in hospital bed. MOB was who mostly engaged in conversation, and FOB would answer questions if they were asked directly to him. MOB quiet, and reserved but would engage in conversation to answer questions asked. MOB expressed that she felt really good during this , although she is happy to not be any longer. MOB also reports that since baby has been born she feels good mentally, reports to feeling happy and feels a strauss with baby. MOB denies feeling down, anxious, sad or tearful. MOB has supports in place and has obtained all necessary baby supplies. PLAN:? No other services requested or indicated. MOB and baby to be discharged when medically ready. Parents were provided literature regarding: signs and symptoms of baby blues and mood and anxiety disorders, Help Me Grow, shaken baby prevention, ABCs of safe sleep and a list of county resources that are available for them should any needs present themselves. Larry Fernandez, INTERNET RETAILER, BOX OFFICE ATTENDANT
--- NOTE | 2025-07-08 20:46 | PRO.PCM_ITS ---
Bedside Procedural Bedside Procedure Information Date of Procedure: 07/08/25 Pre-Procedure Diagnosis: Desires contraception Post-Procedure Diagnosis: same Procedure Performed:: nexplanon insertion vp strategic partnerships: No Procedure Time Out: Procedure Start Time: Procedure Stop Time: Special Medications: 1% lidocaine Description of procedure: Nexplanon Insertion Procedure Note PRE-OP DIAGNOSIS: desired long-term, reversible contraception POST-OP DIAGNOSIS: Same PROCEDURE: Nexplanon placement Site: Left Arm Sterile Preparation: Betadine Insertion site was selected 8 ? 10 cm from medial epicondyle Procedure area was prepped and draped in a sterile fashion. 2 mL of 1% lidocaine without epinephrine used for subcutaneous anesthesia. Anesthesia confirmed. Nexplanon trocar was inserted subcutaneously and then Nexplanon capsule delivered subcutaneously Trocar was removed from the insertion site. Nexplanon capsule was palpated by provider and patient to assure satisfactory placement. Estimated blood loss of scant Adhesive Dressing applied The patient tolerated the procedure well without complications. Standard post- procedure care is explained and return precautions are given Complications Complications: No
[2025-07-08] MEDS: Lidocaine 1% (20 ml mdv) 20 ML Vial INFILT (21:20)
[2025-07-09 02:21] VITALS: BP 117/65; PULSE 88; RESP 16; TEMP 36.2; O2SAT 98
--- NOTE | 2025-07-09 05:38 | NURSING ---
0500: This RN at bedside to perform first set of Q1 hour x 3 vital signs on after fall. Patient states I was just telling him ('s father) I don't remember her falling. I don't know if I was just having a bad dream or what and the RN asked if she remembered picking the infant up off of the floor and patient states no I don't everything is just a blur.
[2025-07-09 06:02] VITALS: BP 134/84; PULSE 97; RESP 16
[2025-07-09 09:10] VITALS: BP 138/75; PULSE 104; RESP 16; O2SAT 98
[2025-07-09] MEDS: Senna/Docusate Sodium 1 Tablet PO (10:15)
[2025-07-09 12:45] VITALS: BP 144/80; PULSE 98; RESP 18; TEMP 36.9
[2025-07-09 16:33] VITALS: BP 136/87; PULSE 91; RESP 18; TEMP 37.1; O2SAT 95
--- NOTE | 2025-07-09 16:48 | DS.PCM_ITS ---
Providers Date of Admission: 07/06/25 Primary Care Physician: MARIANNA Cheng Reason For Visit: REPEAT Diagnosis Discharge Diagnosis (1) Gestational diabetes requiring insulin: Status: Acute Code(s): O24.414 - Gestational diabetes mellitus in , insulin controlled (2) Previous delivery affecting : Status: Acute Code(s): O34.219 - Maternal care for unspecified type scar from previous delivery (3) Gestational hypertension: Status: Acute Code(s): O13.9 - Gestational [-induced] hypertension without significant proteinuria, unspecified trimester Qualifiers: Trimester: unspecified trimester Qualified Code(s): O13.9 - Gestational [-induced] hypertension without significant proteinuria, unspecified trimester (4) S/P : Status: Acute Code(s): Z98.891 - History of uterine scar from previous surgery Medications at Discharge Home Medications 1 cap PO/SL DAILY pregancy 09/06/21 cholecalciferol (vitamin D3) 25 mcg (1,000 unit) capsule 25 mcg PO QDAY Preg 03/18/25 mirtazapine 30 mg tablet 30 mg PO QHS anxiety 03/18/25 ferrous sulfate 325 mg (65 mg iron) tablet (FeroSul) 325 mg PO DAILY anemia 03/22/25 acetaminophen 500 mg tablet 1,000 mg (2 x 500 mg) PO Q6 #0 tabs 07/09/25 ibuprofen 600 mg tablet 600 mg PO Q6H #0 tabs 07/09/25 labetalol 200 mg tablet 200 mg PO TID #90 tabs 07/09/25 Hospital Course Operations section Procedures None Summary of Care Provided Minutes Spent on Discharge: 15 Hospital Course: Patient had section. Hospital course was uneventful. Physical Exam Narrative Seen at bedside. Denies any headache, vision changes, SOB, CP. No severe range pressures. Desires discharge home. Const alert and no apparent distress General Appearance: cooperative and comfortable Exam Limitations: no limitations HEENT normocephalic Eyes General Eye: normal appearance of both eyes Neck full ROM General: normal visual inspection Chest Chest: symmetrical chest wall rise Resp normal respiratory effort and normal air movement Effort and Inspection: symmetric chest movement Auscultation: clear to auscultation bilaterally Cardio regular rate and regular rhythm GI normal to inspection, nondistended, normoactive bowel sounds Back/Spine normal ROM Extremity full ROM and no calf tenderness General Extremity: normal exam except as noted Skin no rashes or lesions noted Wound Narrative: Dressing is dry and intact. Neuro CN's II-XII intact bilaterally Psych mental status grossly normal Weight / BMI Weight Weight: 262 lb Body Mass Index (BMI) 42.3 ABG / Lab / Microbiology Data 07/07/25 05:40 07/06/25 13:00 D/C Instructions Discharge Activity: May Drive (2 weeks) and May Shower May resume sexual activity in: 6-8 weeks Weight Bearing Status: Weight bearing as tolerated Lifting Restricted to (Lbs): 25 Call your doctor if your incision/area has: Continuous Slow Oozing, Sudden Increased Bleeding, Increased Pain/ Swelling, Increased Redness, Foul Smelling Discharge and Swelling at the incision site Call your doctor if you observe: Fever of 101 or Higher, Numbness or Tingling, Using more than 1 pad per hour, Shortness of breath, Dizziness, Swelling in the ankles, Chest pain, Calf discomfort and Uncontrolled pain Suture Line Care: Avoid Pulling/Pushing Remove Dressing in: 5 days (Remove yourself or call office and schedule appointment for dressing removal.) DC O2, CPAP, BIPAP Needs Home O2 Discharge instructions: No When: 5 days for dressing removal and BP check. Call provider if any BP >160/110 or symptoms : headache, vision changes, RUQ pain Meaningful Use Info Meaningful Use Meaningful Use Diagnoses (Choose all that apply): None applicable Discharge Plan Admission Admit Date/Time: 07/06/25 13:06 Primary Reason for Your Visit: Delivery Attending Provider: Eden Salmon Primary Care Provider: Sanjana Anguiano TELEVISION SPECIALIST Instructions Patient Instructions: After a Delivery (WP) Discharge Orders/Prescriptions Prescriptions: New labetalol 200 mg Tablet 200 mg PO TID Qty: 90 1RF acetaminophen 500 mg Tablet 1,000 mg PO Q6 Qty: 0 0RF ibuprofen 600 mg Tablet 600 mg PO Q6H Qty: 0 0RF Continued mirtazapine 30 mg tablet 30 mg PO QHS cholecalciferol (vitamin D3) 25 mcg (1,000 unit) capsule 25 mcg PO QDAY 1 cap PO/SL DAILY ferrous sulfate [FeroSul] 325 mg (65 mg iron) tablet 325 mg PO DAILY Discontinued aspirin 81 mg tablet,delayed release (DR/EC) 81 mg PO DAILY Referrals / Follow Up: Sanjana Anguiano TELEVISION SPECIALIST, TELEVISION SPECIALIST-C [Primary Care Provider, Family Practice] Disposition Disposition (needs filled in before D/C Order can be placed): Home, Self Care
--- NOTE | 2025-07-14 10:13 | NURSING ---
F/up call attempted, no ans, LVM
== END 2025-07-09 17:55 | disposition home or self-care (01) | DRG 540 ==
PROVIDERS: Admitting Provider Obstetrics & Gynecology; PCP Nurse Practitioner Family; Referring Provider Obstetrics & Gynecology; Visit Provider Obstetrics & Gynecology
DX: O13.4 Gestational [pregnancy-induced] hypertension without significant proteinuria, complicating childbirth (principal); O99.214 Obesity complicating childbirth; D50.9 Iron deficiency anemia, unspecified; O24.424 Gestational diabetes mellitus in childbirth, insulin controlled; F41.9 Anxiety disorder, unspecified; F17.200 Nicotine dependence, unspecified, uncomplicated; O99.344 Other mental disorders complicating childbirth; O99.334 Smoking (tobacco) complicating childbirth; O34.211 Maternal care for low transverse scar from previous cesarean delivery; O99.02 Anemia complicating childbirth; Z3A.37 37 weeks gestation of pregnancy; Z37.0 Single live birth; Z79.899 Other long term (current) drug therapy
CPT/HCPCS: 59025; 59050; 82565; 82570; 82962; 84156; 84450; 84460; 84550; 85025; 85027; 86780; 86850; 86900; 86901; 99221; A4216; G0378; J2405